=== PATIENT | male | born 1990 | race Caucasian/White ===

== ENCOUNTER 2019-11-29 06:12 | Emergency (ER) | payer MEDICAID, SELFPAY ==
--- NOTE | 2019-11-29 06:14 | ED_ITS ---
Entered by Ernestine Haney, acting as scribe for Yamil Sharif MD HPI - Abdominal Pain General: Chief Complaint: Abdominal Pain Stated Complaint: abd pain and back pain Time Seen by Provider: 11/29/19 06:15 Source: patient Mode of arrival: ambulatory Limitations: no limitations History of Present Illness: HPI narrative: 29 yo m came to the er for abd pain and back pain. Onset was 2 days ago. Pt states that he is describing as sharp and stabbing pain. Pt states that he has had some nausea and vomiting as well. Pt states that he has not eaten in a couple of days because of the bloating. Pt states that he has stomach ulcers. MD elicited complaint: abdominal pain and other (back pain) Pain Consistency: constant Location: RLQ and LLQ Severity: mild Quality: stabbing and sharp Radiation: back Exacerbating factors: nothing Relieving factors: nothing Associated Symptoms: Reports bloating, nausea and vomiting; Denies chills, dysuria and fever(s) Related Data: Patient : No Review of Systems General: Reports: other (negative unless marked) Const: Denies: fever, chills, body aches or change in appetite Eyes: Denies: blurry vision or eye discomfort ENMT: Denies: throat pain or dental pain Card: Denies: chest pain Resp: Denies: shortness of breath GI: Reports: abdominal pain, nausea, vomiting and bloating : Denies: painful urination Musc: Denies: neck pain or back pain Skin/Breast: Denies: rash Neuro: Denies: headache Psych: Denies: depression Kris/Lymph: Denies: easy bruising All/Imm: Denies: hives PFSH ED PFSH: Social History Smoking and tobacco status: never smoked Physical Exam Const: COMMON NORMALS: no apparent distress, oriented x3 and healthy appearing HENMT: COMMON NORMALS: normocephalic and head/scalp atraumatic HEAD & SCALP: normocephalic and atraumatic Eye: COMMON NORMALS: PERRL and EOMs intact bilaterally PUPIL: Yes PERRL Neck/C-Spine: COMMON NORMALS: full ROM and supple Chest: COMMONS NORMALS: inspection of chest normal and palpation of chest normal Resp: COMMON NORMALS: normal respiratory effort, no retractions, no use of accessory muscles and clear to auscultation bilaterally AUSCULTATION: clear to auscultation bilaterally Cardio: COMMON NORMALS: regular rate, regular rhythm and no murmurs RATE: regular rate RHYTHM: regular rhythm GI: COMMON NORMALS: normal to inspection, nondistended, normoactive bowel s ounds, soft to palpation, non-tender and no masses PALPATION: Yes soft Extremity: COMMON NORMALS: normal to inspection and full ROM Neuro: COMMON NORMALS: oriented x3, moves all extremities and no focal motor deficits Psych: COMMON NORMALS: mental status grossly normal, thought process normal and cooperative THOUGHT PROCESS: normal thought process Skin: COMMON NORMALS: no rashes or lesions noted and no wounds GENERAL SKIN EXAM: no rashes or lesions noted Course Vital Signs: Vital signs: Vital Signs Temperature 98.1 F 11/29/19 06:16 Pulse Rate 77 11/29/19 08:14 Respiratory Rate 16 11/29/19 08:14 Blood Pressure 134/79 11/29/19 08:14 Pulse Oximetry 96 11/29/19 08:14 MDM - Abdominal Pain MDM Narrative: Medical decision making narrative: Patient presents with abdominal pain and CT and labs shows mild pancreatitis. Patient is well- appearing otherwise. His exam here is benign he is tolerated p.o. We will place him on pain meds. Patient is stable for discharge and return if worsening. Differential Diagnosis: Differential diagnosis abdominal pain: Likely abdominal pain, acute appendicitis, constipation, diverticulitis, pancreatitis and small bowel obstruction Lab Data: Labs: Lab Results 11/29/19 11/29/19 11/29/19 Range/Units 06:25 06:25 07:15 WBC 11.4 H (4.0-10.0) 10^3/ uL RBC 5.66 H (4.1-5.3) 10^6/u L Hgb 17.8 H (11.7-16.6) g/dL Hct 50.3 (42.0-52.0) % MCV 88.9 (80-94) fL MCH 31.4 (28.0-34.0) pg MCHC 35.4 (30.0-36.0) g/dL RDW 12.2 (12.1-15.1) % Plt Count 307 (130-400) 10^3/c mm MPV 10.5 H (7.4-10.4) fL Neut % (Auto) 70.2 % Lymph % (Auto) 20.4 % Lamb % (Auto) 7.2 % Eos % (Auto) 1.4 % Baso % (Auto) 0.5 % Neut # (Auto) 8.0 H (1.8-7.7) 10^3/u L Lymph # (Auto) 2.3 (0.8-4.8) 10^3/u L Lamb # (Auto) 0.8 (0.2-0.9) 10^3/u L Eos # (Auto) 0.2 (0.0-0.8) 10^3/u L Baso # (Auto) 0.1 (0.0-0.1) 10^3/u L Nucleated RBC % (a uto) 0 % Nucleated RBCs # 0.0 /100WBC Sodium 132 L (136-145) mmol/L Potassium 3.5 (3.5-5.1) mmol/L Chloride 90 L (98-107) mmol/L Carbon Dioxide 22 (22-29) mmol/L Anion Gap 23.5 H (5-19) BUN 11 (6-20) mg/dL Creatinine 1.2 (0.7-1.2) mg/dL GFR Calculation 71.6 L (90-130) mL/min Glucose 120 H (65-115) mg/dL Calcium 10.7 H (8.5-10.5) mg/dL Total Bilirubin 1.7 H (0.15-1.2) mg/dL AST 66 H (0-40) U/L ALT 89 H (0-41) U/L Alkaline Phosphata se 102 (40-130) IU/L Total Protein 8.8 H (6.6-8.7) g/dL Albumin 4.5 (3.5-5.2) g/dL Globulin 4.3 (1.3-4.6) g/dL Lipase 160 H (13-60) U/L Urine Color Yellow (Yellow) Urine Appearance Clear (CLEAR) Urine pH 7 (5-7) Ur Specific Gravit y 1.000 L (1.005-1.030) Urine Protein Neg (Negative) Urine Glucose (UA) Norm (Normal) Urine Ketones 1+ H (Negative) Urine Blood Neg (Negative) Urine Nitrate Negative (Negative) Urine Bilirubin Neg (NEGATIVE) Urine Urobilinogen Norm (Negative) mg/dL Ur Leukocyte Jeniffer ase Negative (Negative) Imaging Data ^: CT Abd/Pel: Radiologist's impression: Ordering Provider/Ordering MD: Yamil Sharif MD Date of Service: 11/29/19 Procedure(s): CT abdomen pelvis w con* [id number] Accession Number(s): [id number] Report Number: [id number] PROCEDURE INFORMATION: Exam: CT Abdomen And Pelvis With Contrast Exam date and time: 11/29/2019 6:37 AM Age: 29 years old Clinical indication: Abdominal pain; Patient HX: Periumbilical and low back pain. History of gastric ulcers. ; Additional info: Abd pain TECHNIQUE: Imaging protocol: Computed tomography of the abdomen and pelvis with intravenous contrast. Total DLP: 1589.25 mGy-cm Radiation optimization: All CT scans at this facility use at least one of these dose optimization techniques: automated exposure control; mA and/or kV adjustment per patient size (includes targeted exams where dose is matched to clinical indication); or iterative reconstruction. Contrast material: OMNI 300; Contrast volume: 95 ml; Contrast route: 20G; COMPARISON: CT Abdomen/Pelvis Renal [id number] 03/25/2019 3:53 PM FINDINGS: Liver: Fatty liver. Gallbladder and bile ducts: No calcified stones. No ductal dilation. Pancreas: Mild stranding/fluid about the pancreatic head. No pancreatic ductal dilation. Spleen: No splenomegaly. Adrenals: No mass. Kidneys and ureters: No hydronephrosis. Stomach and bowel: No obstruction. No mucosal thickening. Appendix: No evidence of appendicitis. Intraperitoneal space: No free air. No significant fluid collection. Vasculature: No abdominal aortic aneurysm. Lymph nodes: No enlarged lymph nodes. Bladder: Unremarkable as visualized. Reproductive: Unremarkable as visualized. Bones/joints: Unremarkable. No acute fracture. Soft tissues: Unremarkable. CT/CT abdomen pelvis w con* [id number] IMPRESSION: Mild stranding/fluid about the pancreatic head. Correlate with pancreatic enzymes to exclude pancreatitis. Discharge Plan Discharge Patient Disposition: Home, Self-Care Clinical Impression: Pancreatitis Qualifiers: Chronicity: acute Pancreatitis type: unspecified pancreatitis type Acute pancreatitis complication: unspecified Qualified Code(s): K85.90 - Acute pancreatitis without necrosis or infection, unspecified Condition: Stable Prescriptions: [place] 5-325 mg tablet 1 tab PO Q6H PRN (Reason: pain) Qty: 14 RF: 0 Zofran 4 mg tablet 4 mg PO QID PRN (Reason: nausea and vomiting) Qty: 14 RF: 0 Protonix 40 mg tablet,delayed release (DR/EC) 40 mg PO DAILY 42 Days RF: 0 No Action metoprolol tartrate 100 mg Tablet 100 mg PO BID RF: 0 lisinopril-hydrochlorothiazide 20-25 mg Tablet 1 tab PO BID RF: 0 Tums 2 tab PO TID PRN (Reason: unknown) RF: 0 magnesium 1 tab PO EVERY OTHER DAY RF: 0 Discharge Orders: Discharge Order (Routine); Ordered 11/29/19 Ordered By: Yamil Sharif Referrals: Chloé Mars MD [Family Provider] - 4-7 days Discharge Diet: Advance as tolerated Discharge Activity: Resume usual activity Patient Instructions: Pancreatitis (ED) Discharge Date/Time: 11/29/19 08:21 Coding Level of Care Code ED Procurement Clerk for Chg Fwd The documentation recorded by the Lyndon david Stephanie Lyn, accurately reflects the service I personally performed and the decisions made by Chante pizarro Korby, MD Nov 29, 2019 06:12
[2019-11-29 06:16] VITALS: BP 172/114; PULSE 100; RESP 16; TEMP 36.7; O2SAT 98; BMI 32.5
--- NOTE | 2019-11-29 06:26 | CTR_ITS ---
PROCEDURE INFORMATION: Exam: CT Abdomen And Pelvis With Contrast Exam date and time: 11/29/2019 6:37 AM Age: 29 years old Clinical indication: Abdominal pain; Patient HX: Periumbilical and low back pain. History of gastric ulcers. ; Additional info: Abd pain TECHNIQUE: Imaging protocol: Computed tomography of the abdomen and pelvis with intravenous contrast. Total DLP: 1589.25 mGy-cm Radiation optimization: All CT scans at this facility use at least one of these dose optimization techniques: automated exposure control; mA and/or kV adjustment per patient size (includes targeted exams where dose is matched to clinical indication); or iterative reconstruction. Contrast material: OMNI 300; Contrast volume: 95 ml; Contrast route: 20G; COMPARISON: CT Abdomen/Pelvis Renal [id number] 03/25/2019 3:53 PM FINDINGS: Liver: Fatty liver. Gallbladder and bile ducts: No calcified stones. No ductal dilation. Pancreas: Mild stranding/fluid about the pancreatic head. No pancreatic ductal dilation. Spleen: No splenomegaly. Adrenals: No mass. Kidneys and ureters: No hydronephrosis. Stomach and bowel: No obstruction. No mucosal thickening. Appendix: No evidence of appendicitis. Intraperitoneal space: No free air. No significant fluid collection. Vasculature: No abdominal aortic aneurysm. Lymph nodes: No enlarged lymph nodes. Bladder: Unremarkable as visualized. Reproductive: Unremarkable as visualized. Bones/joints: Unremarkable. No acute fracture. Soft tissues: Unremarkable. CT/CT abdomen pelvis w con* [id number] IMPRESSION: Mild stranding/fluid about the pancreatic head. Correlate with pancreatic enzymes to exclude pancreatitis. Radiation Dose CTDIVOL = (mGy): DLP = 1589.25 (mGy-cm)
[2019-11-29] MEDS: sodium chloride 0.9% 1,000 ML 999 ML IV (06:31)
[2019-11-29 06:33] VITALS: RESP 18
[2019-11-29] MEDS: ondansetron 2 mg/ML SDV 2 mL 4 MG IVP (06:33)
[2019-11-29] MEDS: morphine 4 mg/mL SDV 1 mL IVP (06:33)
[2019-11-29 06:42] LABS: Basophils # 0.1 10^3/uL (0.0-0.1); Basophils % 0.5 %; Eosinophils # 0.2 10^3/uL (0.0-0.8); Eosinophils % 1.4 %; Hematocrit 50.3 % (42.0-52.0); Hemoglobin 17.8 g/dL (11.7-16.6); Lymphocytes # 2.3 10^3/uL (0.8-4.8); Lymphocytes % 20.4 %; Mean Corpuscular HGB Conc 35.4 g/dL (30.0-36.0); Mean Corpuscular Hemoglobin 31.4 pg (28.0-34.0); Mean Corpuscular Volume 88.9 fL (80-94); Mean Platelet Volume 10.5 fL (7.4-10.4); Monocytes # 0.8 10^3/uL (0.2-0.9); Monocytes % 7.2 %; Neutrophils % 70.2 %; Nucleated Red Blood Cells % 0 %; Platelet Count 307 10^3/cmm (130-400); Red Blood Count 5.66 10^6/uL (4.1-5.3); Red Cell Distribution Width 12.2 % (12.1-15.1); White Blood Count 11.4 10^3/uL (4.0-10.0)
[2019-11-29 06:57] LABS: Alanine Aminotransferase 89 U/L (0-41); Albumin Level 4.5 g/dL (3.5-5.2); Alkaline Phosphatase 102 IU/L (40-130); Anion Gap 23.5 (5-19); Aspartate Amino Transferase 66 U/L (0-40); Blood Urea Nitrogen 11 mg/dL (6-20); Calcium 10.7 mg/dL (8.5-10.5); Carbon Dioxide 22 mmol/L (22-29); Chloride 90 mmol/L (98-107); Globulin 4.3 g/dL (1.3-4.6); Glomerular Filtration Rate 71.6 mL/min (90-130); Glucose 120 mg/dL (65-115); Lipase 160 U/L (13-60); Potassium 3.5 mmol/L (3.5-5.1); Sodium 132 mmol/L (136-145); Total Bilirubin 1.7 mg/dL (0.15-1.2); Total Protein 8.8 g/dL (6.6-8.7)
[2019-11-29] MEDS: iohexol 300 mg/mL 100 mL Btl IV (06:58)
[2019-11-29 07:28] LABS: Add Urine Microscopic? NO
[2019-11-29 07:36] LABS: Urine Appearance Clear (CLEAR); Urine Color Yellow (Yellow); pH Urine 7 (5-7)
[2019-11-29 07:37] LABS: Bilirubin Urine Neg (NEGATIVE); Blood Urine Neg (Negative); Glucose Urine UA Norm (Normal); Ketones Urine 1+ (Negative); Leukocyte Esterase Urine Negative (Negative); Nitrate Urine Negative (Negative); Protein Urine Neg (Negative); Urobilinogen Urine Norm (Negative)
[2019-11-29 08:14] VITALS: BP 134/79; PULSE 77; RESP 16; O2SAT 96
== END 2019-11-29 08:21 | disposition home or self-care (01) ==
PROVIDERS: Emergency Provider Emergency Medicine; Family Provider Family Medicine
DX: K85.90 Acute pancreatitis without necrosis or infection, unspecified (principal)
CPT/HCPCS: 74177; 80053; 81003; 83690; 85025; 96361; 96374; 96375; 99282; 99283; A9270; J2270; J2405; J7030; Q9967

== ENCOUNTER 2020-09-16 15:31 | Emergency (ER) | payer MEDICAID, SELFPAY ==
[2020-09-16 16:27] VITALS: BP 157/97; PULSE 78; RESP 16; TEMP 36.3; O2SAT 98; BMI 35.2
--- NOTE | 2020-09-16 16:55 | CTR_ITS ---
PROCEDURE INFORMATION: Exam: CT Abdomen And Pelvis With Contrast Exam date and time: 09/16/2020 6:00 PM Age: 30 years old Clinical indication: Nausea and vomiting and other: Diarrhea; Abdominal pain; Localized; Right upper quadrant (ruq) TECHNIQUE: Imaging protocol: Computed tomography of the abdomen and pelvis with intravenous contrast. Radiation optimization: All CT scans at this facility use at least one of these dose optimization techniques: automated exposure control; mA and/or kV adjustment per patient size (includes targeted exams where dose is matched to clinical indication); or iterative reconstruction. Contrast material: OMNI 300; Contrast volume: 95 ml; Contrast route: INTRAVENOUS (IV); COMPARISON: CT abdomen pelvis w con* [id number] 11/29/2019 7:10 AM RADIATION DOSE METRICS: Total DLP (mGy-cm): 1638.91 FINDINGS: Liver: There is a diffuse decrease in hepatic parenchymal density, consistent with severe fatty infiltration. There is a 2.2 cm sized relatively hyperdense lesion in the inferior tip of the right lobe of the liver which show some peripheral enhancement and most likely represents benign hemangioma. This was probably present on 11/29/2019 and 03/25/2019 and is no larger. Further evaluation such as with liver MRI could confirm the benign nature of this finding. Gallbladder and bile ducts: The gallbladder is normal. Pancreas: The pancreas is normal. Spleen: The spleen is normal. Adrenal glands: The adrenal glands are normal. Kidneys and ureters: The kidneys are normal. There is no evidence of hydronephrosis. There is no evidence of renal or ureteral calcifications. Stomach and bowel: There is no evidence of colitis/diverticulitis. There is no evidence of intestinal obstruction. Appendix: Not identified Intraperitoneal space: There is no evidence of free intraperitoneal fluid. Vasculature: Unremarkable. No abdominal aortic aneurysm. Lymph nodes: Unremarkable. No enlarged lymph nodes. Urinary bladder: Unremarkable as visualized. Reproductive: Unremarkable as visualized. Bones/joints: Unremarkable. No acute fracture. Soft tissues: Unremarkable. CT/CT abdomen pelvis w con* [id number] IMPRESSION: 1. Severe fatty liver. 2. Probable hepatic hemangioma. 3. No acute finding. Radiation Dose CTDIVOL = (mGy): DLP = 1638.91 (mGy-cm)
[2020-09-16] MEDS: ondansetron 2 mg/ML SDV 2 mL 4 MG IVP (16:58)
[2020-09-16 17:00] LABS: Basophils # 0.1 10^3/uL (0.0-0.1); Basophils % 0.7 %; Eosinophils % 0.3 %; Lymphocytes # 1.6 10^3/uL (0.8-4.8); Lymphocytes % 16.1 %; Mean Corpuscular Hemoglobin 31.7 pg (28.0-34.0); Mean Corpuscular Volume 93.3 fL (80-94); Mean Platelet Volume 10.1 fL (7.4-10.4); Monocytes # 0.8 10^3/uL (0.2-0.9); Monocytes % 7.6 %; Neutrophils # 7.41 10^3/uL (1.8-7.7); Nucleated Red Blood Cells % 0 %; Platelet Count 257 10^3/cmm (130-400); Red Blood Count 5.04 10^6/uL (4.1-5.3); Red Cell Distribution Width 12.5 % (12.1-15.1); White Blood Count 9.9 10^3/uL (4.0-10.0)
--- NOTE | 2020-09-16 17:11 | W.ED.ABDPA2 ---
HPI - Abdominal Pain General: Chief Complaint: Abdominal Pain Stated Complaint: abd pain-hx of chronic pancreatitis Time Seen by Provider: 09/16/20 16:34 Source: patient Mode of arrival: ambulatory Limitations: no limitations History of Present Illness: HPI narrative: 30-year-old male patient presents to the emergency department with history of pancreatitis, experienced November 2019. He reports his continue to experience similar abdominal pain on and off since diagnosis. He reports several day history of worsening right upper quadrant pain, diarrhea symptoms and vomiting with solid food intake. He denies hematemesis or hematochezia recently but does state previous episode in May 2020. He did not seek medical treatment for that episode. He reports drinking average of 2 bottles wine daily. Is aware this will increase risk of recurrent pancreatitis. He states no history of diabetes but states concerned he could be due to change of body odor. He reports 3 episodes of diarrhea today. Primary care provider Dr. Barr. TREVIZO elicited complaint: abdominal pain Pertinent past history: other (Pancreatitis) Pain Consistency: intermittent Location: RUQ Severity: moderate Quality: cramping, aching and dull Radiation: RUQ Migration to: no migration Exacerbating factors: other (Intake of solid food) Relieving factors: other (Intake of water) Associated Symptoms: Reports bloating, change in bowel habits, diarrhea, nausea and vomiting; Denies chills, dysuria, fever(s), fecal incontinence and melena Treatments prior to arrival: other (Reports Zofran completed and does not have prescription at home.) Review of Systems General: Reports: 10 or more systems reviewed and unremarkable except in HPI and below Const: Denies: fever(s), chills or diaphoresis Eyes: Denies: blurry vision or eye redness ENMT: Denies: throat pain, dental pain or disequilibrium Card: Denies: chest pain, palpitations or irregular heart rhythm Resp: Denies: dyspnea, productive cough, non-productive cough, wheezing or chest congestion GI: Reports: abdominal pain, nausea, vomiting, diarrhea, bloating and change in bowel habits; Denies: fecal incontinence, melena or white/light colored stool : Denies: difficulty urinating, dysuria, urinary urgency or urinary incontinence Musc: Denies: neck pain, back pain, joint swelling, muscle cramps or muscle weakness Skin/Breast: Denies: rash or pruritus Neuro: Denies: headache(s), weakness in extremities or behavioral changes Psych: Reports: anxiety and other (Reports stress due to COVID-19); Denies: depression or mood swings Kris/Lymph: Denies: easy bruising PFSH ED PFSH: Social History (Updated 09/16/20 @ 16:31 by Chapito Flood RN) Smoking and tobacco status: never smoked Alcohol intake: current Alcohol intake frequency: 0-2 Drinks per Day Substance/Drug Use: never Physical Exam Const: COMMON NORMALS: no acute distress, patient oriented x3, healthy appearing, alert and well nourished EXAM LIMITATIONS: no altered mental status GENERAL APPEARANCE: cooperative, well hydrated and other (appears not feeling) NUTRITIONAL APPEARANCE: obese ORIENTATION/CONSCIOUSNESS: Yes awake, Yes oriented to person, Yes oriented to place and Yes oriented to time HENMT: COMMON NORMALS: normocephalic, atraumatic, Normal external nose present and moist oral mucous membranes HEAD & SCALP: normal to inspection, normocephalic and atraumatic FACE & SINUS: normal facial exam and face symmetric NOSE: Normal external nose present THROAT: posterior oropharynx normal Eye: COMMON NORMALS: Equal, round and reactive pupils present and EOMs intact bilaterally GENERAL EYE: appearance normal, both eyes and all related structures PUPIL: Yes Equal, round and reactive pupils present Neck/C-Spine: COMMON NORMALS: full ROM and no lymphadenopathy GENERAL: Yes normal visual inspection and Yes trachea midline CERVICAL SPINE: Yes cervical ROM normal Lymph: LYMPHATIC: no lymphadenopathy noted Chest: COMMONS NORMALS: normal inspection of the chest and normal palpation of entire chest wall Resp: COMMON NORMALS: normal respiratory effort, No retractions, No use of accessory muscles and clear to auscultation bilaterally EFFORT & INSPECTION: Yes able to speak in complete sentences and No paradoxical thoraco-abdominal movements AUSCULTATION: clear to auscultation bilaterally, no rhonchi and no wheezes Cardio: COMMON NORMALS: regular rate, regular rhythm, S1 normal heart sound present, S2 normal heart sound present and Peripheral pulses 2+ throughout RATE: regular rate RHYTHM: regular rhythm HEART SOUNDS: S1 normal heart sound present and S2 normal heart sound present PERIPHERAL PULSES: Peripheral pulses 2+ throughout GI: COMMON NORMALS: Normal to inspection, nondistended, normoactive bowel sounds present and Soft to palpation INSPECTION: Yes normal to inspection, No abdominal wall ecchymosis and No scar PALPATION: Yes Soft to palpation : COMMON NORMALS: Yes no CVA tenderness BLADDER/KIDNEY EXAM: Yes no CVA tenderness Back/Pelvis: COMMON NORMALS: no CVA tenderness and thoracic and lumbar spine normal to inspection Extremity: COMMON NORMALS: normal to inspection and capillary refill normal Neuro: COMMON NORMALS: patient oriented x3 and no focal motor deficits SENSORIUM/ORIENTATION: Yes alert, Yes oriented to person, Yes oriented to place and Yes oriented to time Psych: COMMON NORMALS: mental status grossly normal, Normal thought process present and cooperative ACTIVITY/MOTOR BEHAVIOR: Yes appropriate eye contact THOUGHT PROCESS: Normal thought process present Skin: COMMON NORMALS: no rashes or lesions noted and turgor normal GENERAL SKIN EXAM: no rashes or lesions noted and turgor normal Course ED course: 30-year-old male patient presents to the emergency department with abdominal pain. CT scan of the abdomen pelvis without acute findings, severe fatty infiltrated liver present, elevation of liver enzymes present, hepatitis panel negative. He reports increase of alcohol intake due to stress of COVID-19. He did exhibit anxiety here in the ED, lorazepam administered. He was able to tolerate p.o. fluids without vomiting, prescription of Zofran and Carafate provided. He was advised to follow-up with his primary care physician as further evaluation by gastroenterology or hepatology specialty may be needed. He was counseled on lifestyle changes such as diet and exercise, weight loss and avoidance of EtOH/Tylenol. Verbalized understanding. Vital Signs: Vital signs: Vital Signs Temperature 97.3 F L 09/16/20 16:27 Pulse Rate 89 09/16/20 19:27 Respiratory Rate 18 09/16/20 19:27 Blood Pressure 145/79 09/16/20 19:27 Pulse Oximetry 98 09/16/20 19:27 MDM - Abdominal Pain Differential Diagnosis: Differential diagnosis abdominal pain: Likely abdominal pain, acute appendicitis, calculus of kidney and gastroenteritis Lab Data: Labs: Lab Results 09/16/20 09/16/20 09/16/20 Range/Units 16:42 16:42 16:42 WBC 9.9 (4.0-10.0) 10^3/ uL RBC 5.04 (4.1-5.3) 10^6/u L Hgb 16.0 (11.7-16.6) g/dL Hct 47.0 (42.0-52.0) % MCV 93.3 (80-94) fL MCH 31.7 (28.0-34.0) pg MCHC 34.0 (30.0-36.0) g/dL RDW 12.5 (12.1-15.1) % Plt Count 257 (130-400) 10^3/c mm MPV 10.1 (7.4-10.4) fL Neut % (Auto) 75.0 % Lymph % (Auto) 16.1 % [place] % (Auto) 7.6 % Eos % (Auto) 0.3 % Baso % (Auto) 0.7 % Neut # (Auto) 7.41 (1.8-7.7) 10^3/u L Lymph # (Auto) 1.6 (0.8-4.8) 10^3/u L [place] # (Auto) 0.8 (0.2-0.9) 10^3/u L Eos # (Auto) 0.0 (0.0-0.8) 10^3/u L Baso # (Auto) 0.1 (0.0-0.1) 10^3/u L Nucleated RBC % (a uto) 0 % Nucleated RBCs # 0.0 /100WBC Sodium 136 (136-145) mmol/L Potassium 4.2 (3.5-5.1) mmol/L Chloride 97 L (98-107) mmol/L Carbon Dioxide 26 (22-29) mmol/L Anion Gap 17.2 (5-19) BUN 7 (6-20) mg/dL Creatinine 0.9 (0.7-1.2) mg/dL GFR Calculation 99.1 (90-130) mL/min Glucose 111 (65-115) mg/dL Calculated Osmolal ity 281 L (285-295) mOsm/k g Calcium 10.0 (8.5-10.5) mg/dL Total Bilirubin 0.6 (0.15-1.2) mg/dL AST 121 H (0-40) U/L ALT 221 H (0-41) U/L Alkaline Phosphata se 106 (40-130) IU/L Total Protein 7.5 (6.6-8.7) g/dL Albumin 4.4 (3.5-5.2) g/dL Globulin 3.1 (1.3-4.6) g/dL Lipase 30 (13-60) U/L Urine Color (Yellow) Urine Appearance (CLEAR) Urine pH (5-7) Ur Specific Gravit y (1.005-1.030) Urine Protein (Negative) Urine Glucose (UA) (Normal) Urine Ketones (Negative) Urine Blood (Negative) Urine Nitrate (Negative) Urine Bilirubin (Negative) Urine Urobilinogen (Negative) mg/dL Ur Leukocyte Jeniffer ase (Negative) Hepatitis A IgM Ab Non-reactive (Nonreactive) Hep Bs Antigen Non-reactive (Nonreactive) Hep Bs Antibody 3.5 (0-8.5) Hep B Core Total A b Non-reactive (Nonreactive) Hepatitis C Antibo dy Non-reactive (Nonreactive) 09/16/20 Range/Units 17:00 WBC (4.0-10.0) 10^3/ uL RBC (4.1-5.3) 10^6/u L Hgb (11.7-16.6) g/dL Hct (42.0-52.0) % MCV (80-94) fL MCH (28.0-34.0) pg MCHC (30.0-36.0) g/dL RDW (12.1-15.1) % Plt Count (130-400) 10^3/c mm MPV (7.4-10.4) fL Neut % (Auto) % Lymph % (Auto) % [place] % (Auto) % Eos % (Auto) % Baso % (Auto) % Neut # (Auto) (1.8-7.7) 10^3/u L Lymph # (Auto) (0.8-4.8) 10^3/u L [place] # (Auto) (0.2-0.9) 10^3/u L Eos # (Auto) (0.0-0.8) 10^3/u L Baso # (Auto) (0.0-0.1) 10^3/u L Nucleated RBC % (a uto) % Nucleated RBCs # /100WBC Sodium (136-145) mmol/L Potassium (3.5-5.1) mmol/L Chloride (98-107) mmol/L Carbon Dioxide (22-29) mmol/L Anion Gap (5-19) BUN (6-20) mg/dL Creatinine (0.7-1.2) mg/dL GFR Calculation (90-130) mL/min Glucose (65-115) mg/dL Calculated Osmolal ity (285-295) mOsm/k g Calcium (8.5-10.5) mg/dL Total Bilirubin (0.15-1.2) mg/dL AST (0-40) U/L ALT (0-41) U/L Alkaline Phosphata se (40-130) IU/L Total Protein (6.6-8.7) g/dL Albumin (3.5-5.2) g/dL Globulin (1.3-4.6) g/dL Lipase (13-60) U/L Urine Color Straw (Yellow) Urine Appearance Clear (CLEAR) Urine pH 7 (5-7) Ur Specific Gravit y 1.000 L (1.005-1.030) Urine Protein Neg (Negative) Urine Glucose (UA) Norm (Normal) Urine Ketones Negative (Negative) Urine Blood Neg (Negative) Urine Nitrate Negative (Negative) Urine Bilirubin Neg (Negative) Urine Urobilinogen Norm (Negative) mg/dL Ur Leukocyte Jeniffer ase Negative (Negative) Hepatitis A IgM Ab (Nonreactive) Hep Bs Antigen (Nonreactive) Hep Bs Antibody (0-8.5) Hep B Core Total A b (Nonreactive) Hepatitis C Antibo dy (Nonreactive) Imaging Data ^: CT Abd/Pel: Radiologist's impression: [address] [address] [address] Scan Report Signed Patient: David Cowan #: [id number] : 1990Acct#:[id number] Age/Sex: 30 / MADM Date: 09/16/20 Loc: ERRoom/Bed: Attending Dr: Ordering Provider/Ordering MD: Brenda Alexander Date of Service: 09/16/20 Procedure(s): CT abdomen pelvis w con* [id number] Accession Number(s): [id number] Report Number: [id number] PROCEDURE INFORMATION: Exam: CT Abdomen And Pelvis With Contrast Exam date and time: 09/16/2020 6:00 PM Age: 30 years old Clinical indication: Nausea and vomiting and other: Diarrhea; Abdominal pain; Localized; Right upper quadrant (ruq) TECHNIQUE: Imaging protocol: Computed tomography of the abdomen and pelvis with intravenous contrast. Radiation optimization: All CT scans at this facility use at least one of these dose optimization techniques: automated exposure control; mA and/or kV adjustment per patient size (includes targeted exams where dose is matched to clinical indication); or iterative reconstruction. Contrast material: OMNI 300; Contrast volume: 95 ml; Contrast route: INTRAVENOUS (IV); COMPARISON: CT abdomen pelvis w con* [id number] 11/29/2019 7:10 AM RADIATION DOSE METRICS: Total DLP (mGy-cm): 1638.91 FINDINGS: Liver: There is a diffuse decrease in hepatic parenchymal density, consistent with severe fatty infiltration. There is a 2.2 cm sized relatively hyperdense lesion in the inferior tip of the right lobe of the liver which show some peripheral enhancement and most likely represents benign hemangioma. This was probably present on 11/29/2019 and 03/25/2019 and is no larger. Further evaluation such as with liver MRI could confirm the benign nature of this finding. Gallbladder and bile ducts: The gallbladder is normal. Pancreas: The pancreas is normal. Spleen: The spleen is normal. Adrenal glands: The adrenal glands are normal. Kidneys and ureters: The kidneys are normal. There is no evidence of hydronephrosis. There is no evidence of renal or ureteral calcifications. Stomach and bowel: There is no evidence of colitis/diverticulitis. There is no evidence of intestinal obstruction. Appendix: Not identified Intraperitoneal space: There is no evidence of free intraperitoneal fluid. Vasculature: Unremarkable. No abdominal aortic aneurysm. Lymph nodes: Unremarkable. No enlarged lymph nodes. Urinary bladder: Unremarkable as visualized. Reproductive: Unremarkable as visualized. Bones/joints: Unremarkable. No acute fracture. Soft tissues: Unremarkable. CT/CT abdomen pelvis w con* [id number] IMPRESSION: 1. Severe fatty liver. 2. Probable hepatic hemangioma. 3. No acute finding. Radiation Dose CTDIVOL = (mGy): DLP = 1638.91 (mGy-cm) Dictated By:Braeden Hutton Signed By:Sarah Hutton Date/Time:09/16/201817 DD/ 16 Discharge Plan Discharge Patient Disposition: Home Clinical Impression: Fatty infiltration of liver, Abnormal CT of the abdomen, Acute anxiety Gastritis Qualifiers: Gastritis type: alcoholic Chronicity: acute Gastritis bleeding: without bleeding Qualified Code(s): K29.20 - Alcoholic gastritis without bleeding Condition: Stable Prescriptions: New Zofran 4 mg tablet 4 mg PO Q4H Qty: 10 RF: 0 Carafate 1 gram tablet 1 g PO AC 7 Days Qty: 20 RF: 0 No Action metoprolol tartrate 100 mg Tablet 100 mg PO BID@0900,2100 RF: 0 lisinopril-hydrochlorothiazide 20-25 mg Tablet 1 tab PO BID@10,19 RF: 0 pantoprazole 40 mg tablet,delayed release (DR/EC) 40 mg PO DAILY@0900 RF: 0 Discharge Orders: Discharge ED (Routine); Ordered 09/16/20 Ordered By: Brenda Alexander Referrals: Chloé Mars MD [Family Provider] - Discharge Diet: Advance as tolerated and Clear Liquid Discharge Activity: Resume usual activity Patient Instructions: Gastritis (ED), Abuse of Alcohol (ED), Acute Nausea and Vomiting (ED), Anxiety (ED) Activity Restrictions/Additional Instructions: Follow-up with Dr. Mars next week without fail, further evaluation will be needed to ensure you are improving. Clear liquid diet for 24 hours then advance as tolerated, avoid fried fatty greasy foods Carafate has been provided, Carafate will provide protective coating of the oral mucosa to the stomach. Continue Protonix, pantoprazole as prescribed by primary care Avoid alcohol as this will increase symptoms Avoid use of Tylenol, may take ibuprofen as needed for pain Follow-up with Dr. Mars for anxiety management Sign Out Sign Out Data: Patient Sign Out occurred on 09/16/20 at 16:45. Patient's care was discussed, and care was transferred from to TONY Gentile. Coding Level of Care Code ED Shingle Inspector for Chg Fwd Exam Comprehensive
[2020-09-16 17:13] LABS: Add Urine Microscopic? NO
[2020-09-16 17:26] VITALS: RESP 18; O2SAT 99
[2020-09-16] MEDS: sodium chloride 0.9% 500 ML 999 ML IV (17:26)
[2020-09-16] MEDS: morphine 4 mg/mL SDV 1 mL IVP (17:26)
[2020-09-16 17:27] VITALS: BP 172/92; PULSE 90; RESP 18; O2SAT 100
[2020-09-16 17:28] LABS: Alanine Aminotransferase 221 U/L (0-41); Albumin Level 4.4 g/dL (3.5-5.2); Alkaline Phosphatase 106 IU/L (40-130); Anion Gap 17.2 (5-19); Aspartate Amino Transferase 121 U/L (0-40); Blood Urea Nitrogen 7 mg/dL (6-20); Carbon Dioxide 26 mmol/L (22-29); Chloride 97 mmol/L (98-107); Globulin 3.1 g/dL (1.3-4.6); Glomerular Filtration Rate 99.1 mL/min (90-130); Glucose 111 mg/dL (65-115); Lipase 30 U/L (13-60); Osmolality Calculated 281 mOsm/kg (285-295); Potassium 4.2 mmol/L (3.5-5.1); Sodium 136 mmol/L (136-145); Total Bilirubin 0.6 mg/dL (0.15-1.2); Total Protein 7.5 g/dL (6.6-8.7)
[2020-09-16 17:34] LABS: Bilirubin Urine Neg (Negative); Blood Urine Neg (Negative); Glucose Urine UA Norm (Normal); Ketones Urine Negative (Negative); Leukocyte Esterase Urine Negative (Negative); Nitrate Urine Negative (Negative); Protein Urine Neg (Negative); Urine Appearance Clear (CLEAR); Urine Color Straw (Yellow); Urobilinogen Urine Norm (Negative); pH Urine 7 (5-7)
[2020-09-16] MEDS: iohexol 300 mg/mL 100 mL Btl IV (18:02)
[2020-09-16 18:17] VITALS: BP 160/89; PULSE 82; RESP 20; O2SAT 95
[2020-09-16] MEDS: LORazepam 0.5 mg Tablet 0.25 MG PO (18:55)
[2020-09-16 18:56] VITALS: BP 147/94; PULSE 95; RESP 18; O2SAT 98
[2020-09-16 19:04] LABS: Hepatitis A Antibody IgM Non-Reactive (Nonreactive); Hepatitis B Core AB, Total Non-Reactive (Nonreactive); Hepatitis B Surface AB 3.5 (0-8.5); Hepatitis B Surface Antigen Non-Reactive (Nonreactive); Hepatitis C Virus Antibody Non-Reactive (Nonreactive)
[2020-09-16 19:27] VITALS: BP 145/79; PULSE 89; RESP 18; O2SAT 98
== END 2020-09-16 19:28 | disposition home or self-care (01) ==
PROVIDERS: Emergency Medicine; Emergency Provider Nurse Practitioner Family; Family Provider Family Medicine
DX: K29.20 Alcoholic gastritis without bleeding (principal); K76.0 Fatty (change of) liver, not elsewhere classified; R93.5 Abnormal findings on diagnostic imaging of other abdominal regions, including retroperitoneum; F41.9 Anxiety disorder, unspecified
CPT/HCPCS: 12345; 74177; 80053; 81003; 83690; 85025; 86705; 86706; 86709; 86803; 87340; 96374; 96375; 99283; J2270; J2405; J7040; Q9967

== ENCOUNTER 2020-10-02 15:52 | Emergency (ER) | payer MEDICAID, SELFPAY ==
[2020-10-02 16:11] VITALS: BP 118/79; PULSE 75; RESP 14; TEMP 36.8; O2SAT 99; BMI 36.2
--- NOTE | 2020-10-02 16:40 | XRR_ITS ---
PROCEDURE INFORMATION: Exam: XR Chest, 1 View Exam date and time: 10/02/2020 4:46 PM Age: 30 years old Clinical indication: Pain; Chest pressure; Additional info: Chest pain TECHNIQUE: Imaging protocol: XR of the chest Views: 1 view. Total images: 1 COMPARISON: CR Chest 1 [place] [id number] 03/20/2019 10:07 PM FINDINGS: Lungs: Unremarkable. No consolidation. Pleural space: Unremarkable. No pleural effusion. No pneumothorax. Heart/Mediastinum: Unremarkable. No cardiomegaly. Bones/joints: Mild scoliotic curvature. XR/XR chest 1V portable [id number] IMPRESSION: No acute findings.
--- NOTE | 2020-10-02 16:40 | ECG_ITS ---
[facility] Test Date: 2020-10-02 Pat Name: Buddy Cowan Department: Room: Gender: Male Disability Hearing Officer: fred : 1990 Requested By: Lauri Mark Order Number: [id number] Thomas MD: Jorje Eller M.D. Measurements Intervals [place] Rate: 76 P: 50 WA: 190 QRS: 51 QRSD: 86 T: 25 QT: 348 QTc: 392 Interpretive Statements SINUS RHYTHM WITH SINUS ARRHYTHMIA Compared to ECG 03/20/2019 21:46:52 No significant changes Electronically Signed On 10-03-2020 16:44:13 HANDKERCHIEF PRESSER by Jorje Eller M.D. [email or web address]
--- NOTE | 2020-10-02 16:48 | W.ED.CHESTPA ---
HPI - Chest Pain General: Chief Complaint: Chest Pain Stated Complaint: chest pain Time Seen by Provider: 10/02/20 16:22 History of Present Illness: HPI narrative: The patient is a 30-year-old male with past medical history anxiety who comes to the ER complaining of midsternal chest pain for the past hour at home he says he was not doing anything and then the started having pressure in the middle of his chest which got worse. He started taking BuSpar a couple weeks ago with no improvement in his anxiety. He has history of hypertension also. He denies previous cardiac history or any other medical problems. He has an allergy to NSAIDs and says aspirin upsets his stomach and makes him vomit blood sometimes so he refuses to take this medicine in the ER. MD complaint: chest pain and chest discomfort Timing of current episode: constant Prior episodes: No Onset: during rest Pain location: substernal Pain radiation: none Quality: sharp Associated symptoms: Deny abdominal pain, dyspnea or palpitations Treatment prior to arrival: none Review of Systems General: Reports: 10 or more systems reviewed and unremarkable except in HPI and below Const: Denies: fatigue Eyes: Denies: change in vision, blurry vision or eye redness ENMT: Denies: throat pain, swelling of lips/tongue, ear or mastoid pain or nasal congestion Card: Reports: chest pain; Denies: palpitations, irregular heart rhythm, edema, dyspnea on exertion or orthopnea Resp: Denies: dyspnea, productive cough or non-productive cough GI: Denies: abdominal pain, diarrhea or GI cramping : Denies: flank pain, urinary frequency or urinary urgency Musc: Denies: neck pain, back pain, extremity pain, joint pain, joint redness, limited range of motion or muscle weakness Skin/Breast: Denies: rash, pruritus, erythema, skin pain or skin tenderness Neuro: Denies: headache(s), numbness in extremities, weakness in extremities, sensory changes, difficulty walking, dizziness, confusion or Slurred speech present Psych: Reports: anxiety; Denies: depression Endo: Denies: polyuria All/Imm: Denies: urticaria, throat swelling or tongue swelling PFSH ED PFSH: Social History (Updated 09/16/20 @ 16:31 by Chapito Flood RN) Smoking and tobacco status: never smoked Alcohol intake: current Alcohol intake frequency: 0-2 Drinks per Day Current gender identity: Male Physical Exam Narrative: EXAM NARRATIVE: Exam is normal except he has tenderness to his anterior chest wall reproducing his chest pain complaint. Also has mild tenderness in the epigastric region Const: COMMON NORMALS: no acute distress, average body habitus, patient oriented x3, no limitations, healthy appearing, alert and well nourished GENERAL APPEARANCE: cooperative, comfortable, well kempt and well developed ORIENTATION/CONSCIOUSNESS: Yes awake, Yes oriented to person, Yes oriented to place and Yes oriented to time HENMT: COMMON NORMALS: normocephalic, external ears normal and Normal external nose present HEAD & SCALP: normal to inspection and normocephalic NOSE: Normal external nose present EXTERNAL EAR: Yes external ears normal MOUTH: Normal oral and palatal mucosa present THROAT: posterior oropharynx normal Eye: COMMON NORMALS: Equal, round and reactive pupils present and EOMs intact bilaterally GENERAL EYE: appearance normal, both eyes and all related structures PUPIL: Yes Equal, round and reactive pupils present Neck/C-Spine: COMMON NORMALS: full ROM, no lymphadenopathy, no meningeal signs and no JVD GENERAL: Yes normal visual inspection Lymph: LYMPHATIC: no lymphadenopathy noted Chest: COMMONS NORMALS: normal inspection of the chest and normal palpation of entire chest wall Resp: COMMON NORMALS: normal respiratory effort, No retractions, No use of accessory muscles, clear to auscultation bilaterally and percussion normal EFFORT & INSPECTION: Yes able to speak in complete sentences AUSCULTATION: clear to auscultation bilaterally PERCUSSION: percussion normal Cardio: COMMON NORMALS: no JVD, regular rate, regular rhythm, S1 normal heart sound present, S2 normal heart sound present and Peripheral pulses 2+ throughout RATE: regular rate RHYTHM: regular rhythm HEART SOUNDS: S1 normal heart sound present and S2 normal heart sound present PERIPHERAL PULSES: Peripheral pulses 2+ throughout OTHER: Anterior chest wall tenderness GI: COMMON NORMALS: Normal to inspection, nondistended, normoactive bowel sounds present, Soft to palpation, non-tender (Mild epigastric discomfort with deep palpation.) and no masses INSPECTION: Yes normal to inspection PALPATION: Yes Soft to palpation : COMMON NORMALS: Yes no CVA tenderness BLADDER/KIDNEY EXAM: Yes no CVA tenderness Back/Pelvis: COMMON NORMALS: no CVA tenderness, thoracic and lumbar spine normal to inspection, no thoracic nor lumbar tenderness and thoraco-lumbar ROM normal Extremity: COMMON NORMALS: normal to inspection, full ROM, capillary refill normal, no joint enlargement and no pedal edema GENERAL: Yes normal exam except as noted Neuro: COMMON NORMALS: patient oriented x3, CN's II-XII intact bilaterally, moves all extremities, no focal motor deficits, no sensory deficits noted and gait normal SENSORIUM/ORIENTATION: Yes alert, Yes oriented to person, Yes oriented to place and Yes oriented to time MENINGEAL SIGNS: Yes no meningeal signs Psych: COMMON NORMALS: mental status grossly normal, Normal thought process present, cooperative, normal affect and speech normal APPEARANCE: Yes well kempt ATTITUDE: Yes calm SPEECH: Yes normal speech THOUGHT PROCESS: Normal thought process present Skin: COMMON NORMALS: no rashes or lesions noted GENERAL SKIN EXAM: no rashes or lesions noted Course Vital Signs: Vital signs: Vital Signs Temperature 98.3 F 10/02/20 16:11 Pulse Rate 75 10/02/20 16:11 Respiratory Rate 14 10/02/20 16:11 Blood Pressure 118/79 10/02/20 16:11 Pulse Oximetry 99 10/02/20 16:11 MDM - Chest Pain MDM Narrative: Medical decision making narrative: The patient came in complaining of atypical chest pain worse with deep breaths and reproducible with palpation. Troponin and EKG are normal and he is only 30 years old. Typical chest pain is very unlikely. We will put in a care coordination order to get him a cardiology consultation. Recommended following up with primary care physician in a week to follow this and discuss his elevated liver enzymes again which he thinks are related to fatty liver disease. Differential Diagnosis: Cardiac arrest differential diagnosis: Likely acute massive pulmonary embolism (atypical chest pain; angina; HI) Lab Data: Labs: Lab Results 10/02/20 10/02/20 10/02/20 Range/Units 17:15 17:15 17:15 WBC 9.5 (4.0-10.0) 10^3/ uL RBC 4.97 (4.1-5.3) 10^6/u L Hgb 15.9 (11.7-16.6) g/dL Hct 45.7 (42.0-52.0) % MCV 92.0 (80-94) fL MCH 32.0 (28.0-34.0) pg MCHC 34.8 (30.0-36.0) g/dL RDW 11.9 L (12.1-15.1) % Plt Count 295 (130-400) 10^3/c mm MPV 11.3 H (7.4-10.4) fL Neut % (Auto) 75.3 % Lymph % (Auto) 16.4 % [place] % (Auto) 6.7 % Eos % (Auto) 0.7 % Baso % (Auto) 0.7 % Neut # (Auto) 7.16 (1.8-7.7) 10^3/u L Lymph # (Auto) 1.6 (0.8-4.8) 10^3/u L [place] # (Auto) 0.6 (0.2-0.9) 10^3/u L Eos # (Auto) 0.1 (0.0-0.8) 10^3/u L Baso # (Auto) 0.1 (0.0-0.1) 10^3/u L Nucleated RBC % (a uto) 0 % Nucleated RBCs # 0.0 /100WBC D-Dimer 0.38 (0-0.59) ug/mIFE U Sodium 136 (136-145) mmol/L Potassium 3.9 (3.5-5.1) mmol/L Chloride 96 L (98-107) mmol/L Carbon Dioxide 26 (22-29) mmol/L Anion Gap 17.9 (5-19) BUN 12 (6-20) mg/dL Creatinine 0.9 (0.7-1.2) mg/dL GFR Calculation 99.1 (90-130) mL/min Glucose 95 (65-115) mg/dL Calculated Osmolal ity 282 L (285-295) mOsm/k g Calcium 10.0 (8.5-10.5) mg/dL Total Bilirubin 0.4 (0.15-1.2) mg/dL AST 43 H (0-40) U/L ALT 74 H (0-41) U/L Alkaline Phosphata se 92 (40-130) IU/L Troponin T Baselin e (0-15) ng/L Total Protein 7.3 (6.6-8.7) g/dL Albumin 4.6 (3.5-5.2) g/dL Globulin 2.7 (1.3-4.6) g/dL //20 Range/Units 17:15 WBC (4.0-10.0) 10^3/ uL RBC (4.1-5.3) 10^6/u L Hgb (11.7-16.6) g/dL Hct (42.0-52.0) % MCV (80-94) fL MCH (28.0-34.0) pg MCHC (30.0-36.0) g/dL RDW (12.1-15.1) % Plt Count (130-400) 10^3/c mm MPV (7.4-10.4) fL Neut % (Auto) % Lymph % (Auto) % [place] % (Auto) % Eos % (Auto) % Baso % (Auto) % Neut # (Auto) (1.8-7.7) 10^3/u L Lymph # (Auto) (0.8-4.8) 10^3/u L [place] # (Auto) (0.2-0.9) 10^3/u L Eos # (Auto) (0.0-0.8) 10^3/u L Baso # (Auto) (0.0-0.1) 10^3/u L Nucleated RBC % (a uto) % Nucleated RBCs # /100WBC D-Dimer (0-0.59) ug/mIFE U Sodium (136-145) mmol/L Potassium (3.5-5.1) mmol/L Chloride (98-107) mmol/L Carbon Dioxide (22-29) mmol/L Anion Gap (5-19) BUN (6-20) mg/dL Creatinine (0.7-1.2) mg/dL GFR Calculation (90-130) mL/min Glucose (65-115) mg/dL Calculated Osmolal ity (285-295) mOsm/k g Calcium (8.5-10.5) mg/dL Total Bilirubin (0.15-1.2) mg/dL AST (0-40) U/L ALT (0-41) U/L Alkaline Phosphata se (40-130) IU/L Troponin T Baselin e 6 (0-15) ng/L Total Protein (6.6-8.7) g/dL Albumin (3.5-5.2) g/dL Globulin (1.3-4.6) g/dL Discharge Plan Discharge Patient Disposition: Home Clinical Impression: Elevated liver enzymes Chest pain Qualifiers: Chest pain type: other chest pain Qualified Code(s): R07.89 - Other chest pain Condition: Stable Prescriptions: No Action buspirone 10 mg tablet 10 mg PO TID@09,17,22 RF: 0 metoprolol tartrate 100 mg Tablet 100 mg PO BID@0900,2100 RF: 0 lisinopril-hydrochlorothiazide 20-25 mg Tablet 1 tab PO BID@10,19 RF: 0 pantoprazole 40 mg tablet,delayed release (DR/EC) 40 mg PO DAILY@0900 RF: 0 ondansetron HCl [Zofran] 4 mg tablet 4 mg PO Q4H Qty: 10 RF: 0 Discharge Orders: Discharge ED (Routine); Ordered 10/02/20 Ordered By: Lauri Mark Referrals: Chloé Mars MD [Primary Care Provider] - Discharge Diet: Advance as tolerated Discharge Activity: Resume usual activity Activity Restrictions/Additional Instructions: You have chest pain of unknown cause. Care coordination will call you and help you get an appointment with a taker off braker machine to get this more thoroughly evaluated as an outpatient. Please return to the ER with worsening symptoms. Also your liver enzymes are slightly elevated. They are much better than the last visit here. Please continue to follow-up with your primary care physician in another week to discuss this further. Coding Level of Care Code ED Service Cashier for Al Fwd Exam Comprehensive
[2020-10-02] MEDS: lidocaine 2% viscous 15 ML, aluminum-mag hydrox-simethicon 30 ML, sucralfate oral liq 1 GM PO (17:03)
[2020-10-02 17:25] LABS: Basophils # 0.1 10^3/uL (0.0-0.1); Basophils % 0.7 %; Eosinophils # 0.1 10^3/uL (0.0-0.8); Eosinophils % 0.7 %; Hematocrit 45.7 % (42.0-52.0); Hemoglobin 15.9 g/dL (11.7-16.6); Lymphocytes # 1.6 10^3/uL (0.8-4.8); Lymphocytes % 16.4 %; Mean Corpuscular HGB Conc 34.8 g/dL (30.0-36.0); Mean Platelet Volume 11.3 fL (7.4-10.4); Monocytes # 0.6 10^3/uL (0.2-0.9); Monocytes % 6.7 %; Neutrophils # 7.16 10^3/uL (1.8-7.7); Neutrophils % 75.3 %; Nucleated Red Blood Cells % 0 %; Platelet Count 295 10^3/cmm (130-400); Red Blood Count 4.97 10^6/uL (4.1-5.3); Red Cell Distribution Width 11.9 % (12.1-15.1); White Blood Count 9.5 10^3/uL (4.0-10.0)
[2020-10-02 17:44] LABS: Troponin(5th) Baseline 6 ng/L (0-15)
[2020-10-02 17:48] LABS: D Dimer 0.38 ug/mIFEU (0-0.59)
[2020-10-02 17:56] LABS: Alanine Aminotransferase 74 U/L (0-41); Albumin Level 4.6 g/dL (3.5-5.2); Alkaline Phosphatase 92 IU/L (40-130); Aspartate Amino Transferase 43 U/L (0-40); Blood Urea Nitrogen 12 mg/dL (6-20); Carbon Dioxide 26 mmol/L (22-29); Chloride 96 mmol/L (98-107); Globulin 2.7 g/dL (1.3-4.6); Glomerular Filtration Rate 99.1 mL/min (90-130); Glucose 95 mg/dL (65-115); Osmolality Calculated 282 mOsm/kg (285-295); Sodium 136 mmol/L (136-145); Total Bilirubin 0.4 mg/dL (0.15-1.2); Total Protein 7.3 g/dL (6.6-8.7)
[2020-10-02 17:57] LABS: Anion Gap 17.9 (5-19)
[2020-10-02 17:58] LABS: Potassium 3.9 mmol/L (3.5-5.1)
[2020-10-02] MEDS: LORazepam 2 mg/mL INJ 1 mL 0.5 MG IVP (18:21)
--- NOTE | 2020-10-02 18:40 | ECG_ITS ---
[facility] Test Date: 2020-10-02 Pat Name: Buddy Cowan Department: Room: Gender: Male Box Car Bracer: : 1990 Requested By: Lauri Mark Order Number: [id number] Guzman MD: Jorje Eller M.D. Measurements Intervals [place] Rate: 63 P: 41 DE: 203 QRS: 50 QRSD: 98 T: 41 QT: 364 QTc: 374 Interpretive Statements SINUS RHYTHM Compared to ECG 10/02/2020 16:07:00 Sinus arrhythmia no longer present Electronically Signed On 10-03-2020 16:59:17 [employer]BI[employer] ARCHITECT by Jorje Eller M.D. [email or web address] county medical centerWSI [email or web address] medical specialty hospital - [id number]
--- NOTE | 2020-10-05 11:03 | DCPLANNER ---
corporate development manager had message to schedule a follow up appointment for patient with cardiology. corporate development manager called heart care, spoke with Nelly, gave clinic patients information. Patients information will be printed and reviewed. A follow up appointment is scheduled for Monday, October 26, 2020 at 3:[address] Wu. corporate development manager called phone number [phone], to give patient appointment information. corporate development manager unable to speak with patient at this time, a voicemail was left for patient to return casey saw operator phone call for appointment information.
--- NOTE | 2020-10-28 15:59 | DCPLANNER ---
Patient had a follow up appointment scheduled for 10.26.20 with heart care - appointment was cancelled.
== END 2020-10-02 19:29 | disposition home or self-care (01) ==
PROVIDERS: Emergency Provider Family Medicine; PCP Family Medicine
DX: R07.9 Chest pain, unspecified (principal); R74.8 Abnormal levels of other serum enzymes
CPT/HCPCS: 12345; 71045; 80053; 84484; 85025; 85378; 93005; 96374; 99281; 99283; J2060

== ENCOUNTER 2020-10-12 23:57 | Emergency (ER) | payer MEDICAID, SELFPAY ==
[2020-10-12 23:59] VITALS: BP 187/112; PULSE 92; RESP 18; TEMP 36.7; O2SAT 96; BMI 34.5
--- NOTE | 2020-10-13 00:10 | ED_ITS ---
HPI - Abdominal Pain General: Chief Complaint: Abdominal Pain Stated Complaint: throwing up red blood/has fatty liver disease Time Seen by Provider: 10/13/20 00:03 Source: patient Mode of arrival: ambulatory Limitations: no limitations History of Present Illness: HPI narrative: 30-year-old male states been having epigastric pain, vomiting throughout the night. He states his first vomitus is were brown and had an episode of bloody vomitus. He does have a history of reflux. He states pain is sharp in nature and rates it as 7 out of 10. Denies any worsening improving factors. Denies any diarrhea denies any blood in his stool. He denies any fevers. Associated Symptoms: Reports nausea and vomiting; Denies chills, dysuria and fever(s) Review of Systems Const: Denies: fever(s), chills, body aches or change in appetite Eyes: Denies: blurry vision or eye discomfort ENMT: Denies: throat pain or dental pain Card: Denies: chest pain Resp: Denies: dyspnea GI: Reports: abdominal pain, nausea and vomiting : Denies: dysuria Musc: Denies: neck pain or back pain Skin/Breast: Denies: rash Neuro: Denies: headache(s) Psych: Denies: depression Kris/Lymph: Denies: easy bruising All/Imm: Denies: urticaria PFSH ED PFSH: Social History (Updated 09/16/20 @ 16:31 by Chapito Flood RN) Smoking and tobacco status: never smoked Alcohol intake: current Alcohol intake frequency: 0-2 Drinks per Day Current gender identity: Male Physical Exam Const: COMMON NORMALS: no acute distress, patient oriented x3 and healthy appearing HENMT: COMMON NORMALS: normocephalic and atraumatic HEAD & SCALP: normocephalic and atraumatic Eye: COMMON NORMALS: Equal, round and reactive pupils present and EOMs intact bilaterally PUPIL: Yes Equal, round and reactive pupils present Neck/C-Spine: COMMON NORMALS: full ROM and supple Chest: COMMONS NORMALS: normal inspection of the chest and normal palpation of entire chest wall Resp: COMMON NORMALS: normal respiratory effort, No retractions, No use of accessory muscles and clear to auscultation bilaterally AUSCULTATION: clear to auscultation bilaterally Cardio: COMMON NORMALS: regular rate, regular rhythm and No murmurs present ( Cardio) RATE: regular rate RHYTHM: regular rhythm GI: COMMON NORMALS: Normal to inspection, nondistended, normoactive bowel sounds present, Soft to palpation, non-tender and no masses PALPATION: Yes Soft to palpation Extremity: COMMON NORMALS: normal to inspection and full ROM Neuro: COMMON NORMALS: patient oriented x3, moves all extremities and no focal motor deficits Psych: COMMON NORMALS: mental status grossly normal, Normal thought process present and cooperative THOUGHT PROCESS: Normal thought process present Skin: COMMON NORMALS: no rashes or lesions noted and no wounds GENERAL SKIN EXAM: no rashes or lesions noted Course Vital Signs: Vital signs: Vital Signs Temperature 98.0 F 10/12/20 23:59 Pulse Rate 94 10/13/20 00:32 Respiratory Rate 18 10/13/20 00:32 Blood Pressure 187/112 10/12/20 23:59 Pulse Oximetry 99 10/13/20 00:40 MDM - Abdominal Pain MDM Narrative: Medical decision making narrative: Patient presents with vomiting since resolved. He feels much improved after Zofran and pain meds. Patient has no blood in his stool and his hemoglobin here is stable. Likely has a small Sherrell-Elam tear. Patient is already on PPI and is continue to take that. We will place him on Zofran for home. Informed if he has any more vomiting or notices any blood in his stool he is to return immediately. He understands and agrees to plan. He is to follow-up his PCP in 2 to 4 days. Lab Data: Labs: Lab Results 10/13/20 10/13/20 Range/Units 00:15 00:15 WBC 8.0 (4.0-10.0) 10^3/ uL RBC 4.92 (4.1-5.3) 10^6/u L Hgb 15.4 (11.7-16.6) g/dL Hct 45.0 (42.0-52.0) % MCV 91.5 (80-94) fL MCH 31.3 (28.0-34.0) pg MCHC 34.2 (30.0-36.0) g/dL RDW 11.9 L (12.1-15.1) % Plt Count 242 (130-400) 10^3/c mm MPV 11.3 H (7.4-10.4) fL Neut % (Auto) 58.3 % Lymph % (Auto) 32.0 % [place] % (Auto) 7.6 % Eos % (Auto) 1.5 % Baso % (Auto) 0.5 % Neut # (Auto) 4.66 (1.8-7.7) 10^3/u L Lymph # (Auto) 2.6 (0.8-4.8) 10^3/u L [place] # (Auto) 0.6 (0.2-0.9) 10^3/u L Eos # (Auto) 0.1 (0.0-0.8) 10^3/u L Baso # (Auto) 0.0 (0.0-0.1) 10^3/u L Nucleated RBC % (a uto) 0 % Nucleated RBCs # 0.0 /100WBC Sodium 134 L (136-145) mmol/L Potassium 3.4 L (3.5-5.1) mmol/L Chloride 96 L (98-107) mmol/L Carbon Dioxide 24 (22-29) mmol/L Anion Gap 17.4 (5-19) BUN 13 (6-20) mg/dL Creatinine 0.9 (0.7-1.2) mg/dL GFR Calculation 99.1 (90-130) mL/min Glucose 89 (65-115) mg/dL Calculated Osmolal ity 278 L (285-295) mOsm/k g Calcium 9.3 (8.5-10.5) mg/dL Total Bilirubin 0.4 (0.15-1.2) mg/dL AST 34 (0-40) U/L ALT 56 H (0-41) U/L Alkaline Phosphata se 84 (40-130) IU/L Total Protein 7.1 (6.6-8.7) g/dL Albumin 4.3 (3.5-5.2) g/dL Globulin 2.8 (1.3-4.6) g/dL Lipase 29 (13-60) U/L Imaging Data ^: CT Abd/Pel: Radiologist's impression: [address] [place] [address] CT Scan Report Signed Patient: Buddy Cowan Unit #: [id number] : 1990 Age/Sex: 30 / M ADM Date: 10/12/20 Loc: ER Room/Bed: Attending Dr: Ordering Provider/Ordering MD: Yamil Sharif MD Date of Service: 10/13/20 Procedure(s): CT abdomen pelvis w con* [id number] Accession Number(s): [id number] Report Number: [id number] PROCEDURE INFORMATION: Exam: CT Abdomen And Pelvis With Contrast Exam date and time: 10/13/2020 12:20 AM Age: 30 years old Clinical indication: Abdominal pain; Generalized; Additional info: Abd pain TECHNIQUE: Imaging protocol: Computed tomography of the abdomen and pelvis with intravenous contrast. Radiation optimization: All CT scans at this facility use at least one of these dose optimization techniques: automated exposure control; mA and/or kV adjustment per patient size (includes targeted exams where dose is matched to clinical indication); or iterative reconstruction. Contrast material: OMNI 300; Contrast volume: 95 ml; Contrast route: INTRAVENOUS (IV); COMPARISON: CT abdomen pelvis w con* [id number] 09/16/2020 5:49 PM RADIATION DOSE METRICS: Total DLP (mGy-cm): 1676.21 FINDINGS: Lungs: There is some minimal subsegmental atelectasis at the left lung base. Liver: There is a diffuse decrease in hepatic parenchymal density, consistent with mild fatty infiltration. Fatty liver is improved compared with 09/16/2020. There is 1.6 cm sized hypoenhancing lesion in the inferior tip of the liver with some peripheral enhancement. This is not significantly changed from 09/16/2020. Gallbladder and bile ducts: The gallbladder is normal. Pancreas: The pancreas is normal. Spleen: The spleen is normal. Adrenal glands: The adrenal glands are normal. Kidneys and ureters: The kidneys are normal. There is no evidence of hydronephrosis. There is no evidence of renal or ureteral calcifications. Stomach and bowel: There is a focal calcific density within the duodenum of uncertain significance, likely some ingested medication. There is no evidence of colitis/diverticulitis. Appendix: A normal appendix is identified. Intraperitoneal space: There is no evidence of free intraperitoneal fluid. Vasculature: Unremarkable. No abdominal aortic aneurysm. Lymph nodes: There is no evidence of lymphadenopathy. Urinary bladder: Unremarkable as visualized. Reproductive: Unremarkable as visualized. Bones/joints: Unremarkable. No acute fracture. Soft tissues: Unremarkable. CT/CT abdomen pelvis w con* [id number] IMPRESSION: 1. Fatty liver shows improvement from the previous study. 2. Small hepatic hemangioma. 3. No acute findings. Discharge Plan Discharge Patient Disposition: Home Clinical Impression: Abdominal pain Qualifiers: Abdominal location: epigastric Qualified Code(s): R10.13 - Epigastric pain Vomiting Qualifiers: Vomiting type: unspecified Vomiting Intractability: non-intractable Nausea presence: with nausea Qualified Code(s): R11.2 - Nausea with vomiting, unspecified Condition: Stable Prescriptions: New ondansetron 4 mg tablet,disintegrating 4 mg PO Q6H PRN (Reason: nausea and vomiting) Qty: 14 RF: 0 Xanax 1 mg tablet 1 mg PO BID PRN (Reason: anxiety) Qty: 5 RF: 0 No Action buspirone 10 mg tablet 10 mg PO TID@09,17,22 RF: 0 metoprolol tartrate 100 mg Tablet 100 mg PO BID@0900,2100 RF: 0 lisinopril-hydrochlorothiazide 20-25 mg Tablet 1 tab PO BID@10,19 RF: 0 Ativan 0.5 mg tablet 0.5 mg PO Q12H PRN (Reason: anxiety attack) Qty: 3 RF: 0 pantoprazole 40 mg tablet,delayed release (DR/EC) 40 mg PO DAILY@0900 RF: 0 ondansetron HCl [Zofran] 4 mg tablet 4 mg PO Q4H Qty: 10 RF: 0 Discharge Orders: Discharge ED (Routine); Ordered 10/13/20 Ordered By: Yamil Sharif Referrals: Chloé Mars MD [Primary Care Provider] - 1-3 days Discharge Diet: Advance as tolerated Discharge Activity: Resume usual activity Patient Instructions: Abdominal Pain (ED) Coding Level of Care Code ED Body Service Team Member for Al Fwd Exam Comprehensive
[2020-10-13 00:21] LABS: Basophils % 0.5 %; Eosinophils # 0.1 10^3/uL (0.0-0.8); Eosinophils % 1.5 %; Hemoglobin 15.4 g/dL (11.7-16.6); Lymphocytes # 2.6 10^3/uL (0.8-4.8); Mean Corpuscular HGB Conc 34.2 g/dL (30.0-36.0); Mean Corpuscular Hemoglobin 31.3 pg (28.0-34.0); Mean Corpuscular Volume 91.5 fL (80-94); Mean Platelet Volume 11.3 fL (7.4-10.4); Monocytes # 0.6 10^3/uL (0.2-0.9); Monocytes % 7.6 %; Neutrophils # 4.66 10^3/uL (1.8-7.7); Neutrophils % 58.3 %; Nucleated Red Blood Cells % 0 %; Platelet Count 242 10^3/cmm (130-400); Red Blood Count 4.92 10^6/uL (4.1-5.3); Red Cell Distribution Width 11.9 % (12.1-15.1)
[2020-10-13] MEDS: sodium chloride 0.9% 1,000 ML 999 ML IV (00:24)
[2020-10-13 00:28] VITALS: RESP 12
[2020-10-13] MEDS: ondansetron 2 mg/ML SDV 2 mL 4 MG IVP (00:28)
[2020-10-13] MEDS: morphine 4 mg/mL SDV 1 mL IVP (00:28)
[2020-10-13 00:32] VITALS: PULSE 94; RESP 18; O2SAT 99
--- NOTE | 2020-10-13 00:33 | PC.NURSE ---
pt attempting vomiting, pt spitting blood only. Review with pt POC of blood, CT and medication.
[2020-10-13] MEDS: iohexol 300 mg/mL 100 mL Btl IV (00:35)
[2020-10-13 00:37] LABS: Alanine Aminotransferase 56 U/L (0-41); Albumin Level 4.3 g/dL (3.5-5.2); Alkaline Phosphatase 84 IU/L (40-130); Anion Gap 17.4 (5-19); Aspartate Amino Transferase 34 U/L (0-40); Blood Urea Nitrogen 13 mg/dL (6-20); Calcium 9.3 mg/dL (8.5-10.5); Carbon Dioxide 24 mmol/L (22-29); Chloride 96 mmol/L (98-107); Globulin 2.8 g/dL (1.3-4.6); Glomerular Filtration Rate 99.1 mL/min (90-130); Glucose 89 mg/dL (65-115); Lipase 29 U/L (13-60); Osmolality Calculated 278 mOsm/kg (285-295); Potassium 3.4 mmol/L (3.5-5.1); Sodium 134 mmol/L (136-145); Total Bilirubin 0.4 mg/dL (0.15-1.2); Total Protein 7.1 g/dL (6.6-8.7)
[2020-10-13 00:40] VITALS: O2SAT 99
[2020-10-13] MEDS: lidocaine 2% viscous 15 ML, aluminum-mag hydrox-simethicon 30 ML, sucralfate oral liq 1 GM PO (01:25)
[2020-10-13] MEDS: ondansetron 4 MG Tablet PO (01:27)
[2020-10-13 01:31] VITALS: BP 130/72; PULSE 84; RESP 18; O2SAT 96
== END 2020-10-13 01:32 | disposition home or self-care (01) ==
PROVIDERS: Emergency Provider Emergency Medicine; PCP Family Medicine
DX: R10.13 Epigastric pain (principal); R11.2 Nausea with vomiting, unspecified
CPT/HCPCS: 12345; 74177; 80053; 83690; 85025; 96361; 96374; 96375; 99283; J2270; J2405; J7030; Q0162; Q9967

== ENCOUNTER → 2020-11-05 09:41 | Outpatient (BNVA) | payer MEDICAID, SELFPAY | PROVIDERS: PCP Family Medicine; Visit Provider Psychiatry & Neurology Psychiatry | DX: F41.1 Generalized anxiety disorder (principal); F41.0 Panic disorder [episodic paroxysmal anxiety] | CPT/HCPCS: 90792 ==

== ENCOUNTER → 2020-12-03 14:11 | Outpatient (BNVA) | payer MEDICAID, SELFPAY | PROVIDERS: PCP Family Medicine; Visit Provider Psychiatry & Neurology Psychiatry | DX: F41.1 Generalized anxiety disorder (principal); F41.0 Panic disorder [episodic paroxysmal anxiety] | CPT/HCPCS: 99214 ==

== ENCOUNTER 2021-01-30 17:01 | Emergency (ER) | payer MEDICAID, SELFPAY ==
[2021-01-30] VITALS (8 sets, daily range): BP systolic 135–146; BP diastolic 71–97; PULSE 80–109; RESP 14–22; TEMP 36.7; O2SAT 96–98; BMI 33.2
--- NOTE | 2021-01-30 18:11 | ECG_ITS ---
[facility] Test Date: 2021-01-30 Pat Name: Buddy Cowan Department: Room: Gender: Male Processing Associate: : 1990 Requested By: Vicki Johnson I Order Number: [id number] Reading MD: MAT NATH Measurements Intervals [place] Rate: 90 P: 51 DE: 180 QRS: 50 QRSD: 91 T: 40 QT: 328 QTc: 402 Interpretive Statements SINUS RHYTHM NONSPECIFIC T-WAVE ABNORMALITY Compared to ECG 10/02/2020 18:48:45 T-wave abnormality now present Electronically Signed On 01-31-2021 21:16:21 CDT by MAT NATH [id number]
--- NOTE | 2021-01-30 18:11 | XRR_ITS ---
PROCEDURE INFORMATION: Exam: XR Chest Exam date and time: 01/30/2021 6:13 PM Age: 30 years old Clinical indication: Chest pain, shortness of breath TECHNIQUE: Imaging protocol: XR of the chest. Views: 1 view. COMPARISON: CR XR chest 1V portable [id number] 10/02/2020 4:47 PM FINDINGS: Lungs: No pneumonia or pulmonary edema. Pleural spaces: No pleural effusion or pneumothorax. Heart/Mediastinum: The cardiac silhouette is not enlarged. The mediastinal contours are normal. Bones/joints: No acute osseous abnormality. Soft tissues: There is a left epicardial fat pad. XR/XR chest 1V portable [id number] IMPRESSION: No acute abnormality.
[2021-01-30 18:24] LABS: Basophils # 0.1 10^3/uL (0.0-0.1); Basophils % 0.7 %; Eosinophils % 0.3 %; Hemoglobin 16.6 g/dL (11.7-16.6); Lymphocytes % 21.6 %; Mean Corpuscular HGB Conc 33.9 g/dL (30.0-36.0); Mean Corpuscular Hemoglobin 31.3 pg (28.0-34.0); Mean Corpuscular Volume 92.3 fL (80-94); Mean Platelet Volume 9.9 fL (7.4-10.4); Monocytes # 0.7 10^3/uL (0.2-0.9); Monocytes % 7.3 %; Neutrophils # 6.37 10^3/uL (1.8-7.7); Neutrophils % 69.9 %; Nucleated Red Blood Cells % 0 %; Platelet Count 258 10^3/cmm (130-400); Red Blood Count 5.31 10^6/uL (4.1-5.3); Red Cell Distribution Width 13.2 % (12.1-15.1); White Blood Count 9.1 10^3/uL (4.0-10.0)
[2021-01-30 18:25] LABS: Add Urine Microscopic? NO; Charge for UA Resulting for Rev
[2021-01-30 18:28] LABS: Bilirubin Urine Neg (Negative); Blood Urine Neg (Negative); Glucose Urine UA Norm (Normal); Ketones Urine 1+ (Negative); Leukocyte Esterase Urine Negative (Negative); Nitrate Urine Negative (Negative); Protein Urine Neg (Negative); Specific Gravity, Urine 1.005 (1.005-1.030); Urine Appearance Clear (CLEAR); Urine Color Yellow (Yellow); Urobilinogen Urine Norm (Negative); pH Urine 7 (5-7)
[2021-01-30 18:34] LABS: Alanine Aminotransferase 84 U/L (0-41); Albumin Level 4.6 g/dL (3.5-5.2); Alkaline Phosphatase 95 IU/L (40-130); Anion Gap 16.3 (5-19); Aspartate Amino Transferase 62 U/L (0-40); Blood Urea Nitrogen 10 mg/dL (6-20); Calcium 8.9 mg/dL (8.5-10.5); Carbon Dioxide 27 mmol/L (22-29); Chloride 99 mmol/L (98-107); Globulin 2.5 g/dL (1.3-4.6); Glomerular Filtration Rate 132.4 mL/min (90-130); Glucose 98 mg/dL (65-115); Lipase 29 U/L (13-60); Osmolality Calculated 285 mOsm/kg (285-295); Potassium 4.3 mmol/L (3.5-5.1); Sodium 138 mmol/L (136-145); Total Bilirubin 0.8 mg/dL (0.15-1.2); Total Protein 7.1 g/dL (6.6-8.7); Troponin(5th) Baseline 6 ng/L (0-15)
[2021-01-30 18:42] LABS: D Dimer 0.35 ug/mIFEU (0-0.59)
[2021-01-30] MEDS: sodium chloride 0.9% 1,000 ML 999 ML IV (19:42)
[2021-01-30] MEDS: morphine 4 mg/mL SDV 1 mL IVP (21:25)
[2021-01-30] MEDS: ondansetron 2 mg/ML SDV 2 mL 4 MG IVP (21:26)
--- NOTE | 2021-01-30 23:30 | W.ED.CHESTPA ---
HPI - Chest Pain General: Chief Complaint: Chest Pain Stated Complaint: chest pain Time Seen by Provider: 01/30/21 17:51 Source: patient and family (significant other) Mode of arrival: ambulatory Limitations: no limitations History of Present Illness: HPI narrative: Patient is a 30-year-old male with a history of alcohol abuse and alcohol use disorder and history of liver disease. He states that he had been off alcohol for several months until recently when he was diagnosed with a superficial clot in his lower extremity. He was told that he did not need anticoagulation, however the diagnosis worried him enough that he drove him to start drinking again. He has been drinking 1-2 bottles of wine every day for the last 2 weeks. Earlier today he noticed retrosternal/epigastric pain that radiated to his shoulder. He was worried that he may be having a recurrence of his liver disease or he may be having a cardiac event. He denies diaphoresis. He has nausea and some vomiting. MD complaint: chest pain Onset (ago): hour(s) Timing of current episode: constant Prior episodes: No Onset: during rest Pain location: substernal and epigastric Pain radiation: right shoulder Severity: moderate Quality: sharp Relieving factors: nothing Exacerbating factors: nothing Associated symptoms: Reports abdominal pain and nausea; Deny diaphoresis, dyspnea, fever(s), leg edema, palpitations, sense of impending doom, syncope or vomiting Treatment prior to arrival: none Review of Systems General: Reports: 10 or more systems reviewed and unremarkable except in HPI and below Const: Denies: fever(s) or diaphoresis Card: Denies: palpitations or syncope Resp: Denies: dyspnea GI: Reports: abdominal pain and nausea; Denies: vomiting PFSH ED PFSH: Medical History (Reviewed 01/31/21 @ 00:26 by Vicki Johnson MD, [facility] [place]) STELLA (generalized anxiety disorder) Panic Social History (Reviewed 01/31/21 @ 00:26 by Vicki Johnson MD, [facility] [place]) Smoking and tobacco status: never smoked Alcohol intake: current Alcohol intake frequency: 0-2 Drinks per Day Current gender identity: Male Physical Exam Const: COMMON NORMALS: no acute distress, average body habitus, patient oriented x3, no limitations, healthy appearing, alert and well nourished HENMT: COMMON NORMALS: normocephalic, atraumatic and moist oral mucous membranes HEAD & SCALP: normocephalic and atraumatic Neck/C-Spine: COMMON NORMALS: no meningeal signs and no JVD Chest: COMMONS NORMALS: normal inspection of the chest and normal palpation of entire chest wall Resp: COMMON NORMALS: normal respiratory effort, No retractions, No use of accessory muscles, clear to auscultation bilaterally and percussion normal AUSCULTATION: clear to auscultation bilaterally PERCUSSION: percussion normal Cardio: COMMON NORMALS: no JVD, regular rate, regular rhythm, S1 normal heart sound present, S2 normal heart sound present, No gallops present (Cardio), No clicks present (Cardio), No murmurs present (Cardio), No rub (Cardio) and Peripheral pulses 2+ throughout RATE: regular rate RHYTHM: regular rhythm HEART SOUNDS: S1 normal heart sound present and S2 normal heart sound present PERIPHERAL PULSES: Peripheral pulses 2+ throughout GI: COMMON NORMALS: Normal to inspection, nondistended, normoactive bowel sounds present, Soft to palpation, No hepatosplenomegaly present, no masses and no bruits PALPATION: Yes Soft to palpation, Yes Tenderness to palpation present (GI) (epigastric) and Yes No hepatosplenomegaly present Extremity: COMMON NORMALS: normal to inspection, full ROM, capillary refill normal, no calf tenderness and no pedal edema Neuro: COMMON NORMALS: patient oriented x3 SENSORIUM/ORIENTATION: Yes alert MENINGEAL SIGNS: Yes no meningeal signs Skin: COMMON NORMALS: no rashes or lesions noted, no wounds, turgor normal, no jaundice, no petechiae and no mottling GENERAL SKIN EXAM: no rashes or lesions noted and turgor normal Course Reevaluation(s): Reevaluation #1: Discussed his lab and imaging findings with him. Only mildly elevated liver enzymes which is no concerning and otherwise no acute findings. Advised that he likely has alcoholic gastritis. He states that he has a history of gastritis and stomach ulcers. He takes a PPI and I will add Carafate to his medications. He was also advised to be on a diet for gastritis. He voiced understanding and is in agreement with the plan. I counseled him strongly on the benefits of quitting alcohol use and that he should follow-up with his primary care provider if he needs help with quitting alcohol. Time: 23:31 Vital Signs: Vital signs: Vital Signs Temperature 98.0 F 01/30/21 17:24 Pulse Rate 80 01/31/21 00:08 Respiratory Rate 17 01/31/21 00:08 Blood Pressure 146/94 01/31/21 00:08 Pulse Oximetry 98 01/31/21 00:08 MDM - Chest Pain MDM Narrative: Medical decision making narrative: 30-year-old male who presents to the emergency department with chest pain. He had been drinking alcohol consistently for about 2 weeks, 1-2 bottles of wine. Evaluation in the emergency department is unremarkable and consistent with alcoholic gastritis. He is discharged home with a prescription for Carafate. He already has a prescription for a PPI. He was counseled to quit alcohol and he says he has made a decision to do that. Medical Records: Attestation: I reviewed the patient's medical records. Lab Data: Attestation: I reviewed the patient's lab results. Labs: Lab Results 01/30/21 01/30/21 01/30/21 Range/Units 18:00 18:00 18:00 WBC 9.1 (4.0-10.0) 10^3/ uL RBC 5.31 H (4.1-5.3) 10^6/u L Hgb 16.6 (11.7-16.6) g/dL Hct 49.0 (42.0-52.0) % MCV 92.3 (80-94) fL MCH 31.3 (28.0-34.0) pg MCHC 33.9 (30.0-36.0) g/dL RDW 13.2 (12.1-15.1) % Plt Count 258 (130-400) 10^3/c mm MPV 9.9 (7.4-10.4) fL Neut % (Auto) 69.9 % Lymph % (Auto) 21.6 % [place] % (Auto) 7.3 % Eos % (Auto) 0.3 % Baso % (Auto) 0.7 % Neut # (Auto) 6.37 (1.8-7.7) 10^3/u L Lymph # (Auto) 2.0 (0.8-4.8) 10^3/u L [place] # (Auto) 0.7 (0.2-0.9) 10^3/u L Eos # (Auto) 0.0 (0.0-0.8) 10^3/u L Baso # (Auto) 0.1 (0.0-0.1) 10^3/u L Nucleated RBC % (a uto) 0 % Nucleated RBCs # 0.0 /100WBC D-Dimer (0-0.59) ug/mIFE U Sodium 138 (136-145) mmol/L Potassium 4.3 (3.5-5.1) mmol/L Chloride 99 (98-107) mmol/L Carbon Dioxide 27 (22-29) mmol/L Anion Gap 16.3 (5-19) BUN 10 (6-20) mg/dL Creatinine 0.7 (0.7-1.2) mg/dL GFR Calculation 132.4 H (90-130) mL/min Glucose 98 (65-115) mg/dL Calculated Osmolal ity 285 (285-295) mOsm/k g Calcium 8.9 (8.5-10.5) mg/dL Total Bilirubin 0.8 (0.15-1.2) mg/dL AST 62 H (0-40) U/L ALT 84 H (0-41) U/L Alkaline Phosphata se 95 (40-130) IU/L Troponin T Baselin e 6 (0-15) ng/L Troponin T 120 Min igiugig (0-15) ng/L Delta Troponin T Total Protein 7.1 (6.6-8.7) g/dL Albumin 4.6 (3.5-5.2) g/dL Globulin 2.5 (1.3-4.6) g/dL Lipase 29 (13-60) U/L Urine Color (Yellow) Urine Appearance (CLEAR) Urine pH (5-7) Ur Specific Gravit y (1.005-1.030) Urine Protein (Negative) Urine Glucose (UA) (Normal) Urine Ketones (Negative) Urine Blood (Negative) Urine Nitrate (Negative) Urine Bilirubin (Negative) Urine Urobilinogen (Negative) mg/dL Ur Leukocyte Jeniffer ase (Negative) 01/30/21 01/30/21 01/30/21 Range/Units 18:20 18:20 22:19 WBC (4.0-10.0) 10^3/ uL RBC (4.1-5.3) 10^6/u L Hgb (11.7-16.6) g/dL Hct (42.0-52.0) % MCV (80-94) fL MCH (28.0-34.0) pg MCHC (30.0-36.0) g/dL RDW (12.1-15.1) % Plt Count (130-400) 10^3/c mm MPV (7.4-10.4) fL Neut % (Auto) % Lymph % (Auto) % [place] % (Auto) % Eos % (Auto) % Baso % (Auto) % Neut # (Auto) (1.8-7.7) 10^3/u L Lymph # (Auto) (0.8-4.8) 10^3/u L [place] # (Auto) (0.2-0.9) 10^3/u L Eos # (Auto) (0.0-0.8) 10^3/u L Baso # (Auto) (0.0-0.1) 10^3/u L Nucleated RBC % (a uto) % Nucleated RBCs # /100WBC D-Dimer 0.35 (0-0.59) ug/mIFE U Sodium (136-145) mmol/L Potassium (3.5-5.1) mmol/L Chloride (98-107) mmol/L Carbon Dioxide (22-29) mmol/L Anion Gap (5-19) BUN (6-20) mg/dL Creatinine (0.7-1.2) mg/dL GFR Calculation (90-130) mL/min Glucose (65-115) mg/dL Calculated Osmolal ity (285-295) mOsm/k g Calcium (8.5-10.5) mg/dL Total Bilirubin (0.15-1.2) mg/dL AST (0-40) U/L ALT (0-41) U/L Alkaline Phosphata se (40-130) IU/L Troponin T Baselin e (0-15) ng/L Troponin T 120 Min igiugig 6.00 (0-15) ng/L Delta Troponin T Not Reportable Total Protein (6.6-8.7) g/dL Albumin (3.5-5.2) g/dL Globulin (1.3-4.6) g/dL Lipase (13-60) U/L Urine Color Yellow (Yellow) Urine Appearance Clear (CLEAR) Urine pH 7 (5-7) Ur Specific Gravit y 1.005 (1.005-1.030) Urine Protein Neg (Negative) Urine Glucose (UA) Norm (Normal) Urine Ketones 1+ H (Negative) Urine Blood Neg (Negative) Urine Nitrate Negative (Negative) Urine Bilirubin Neg (Negative) Urine Urobilinogen Norm (Negative) mg/dL Ur Leukocyte Jeniffer ase Negative (Negative) Imaging Data^: CXR: Attestation: I personally reviewed and interpreted this imaging study as follows: My impression: No acute findings EKG Data^: EKG 1: Attestation: I personally reviewed and interpreted this EKG as follows: EKG interpretation date: 01/30/21 EKG interpretation time: 19:41 Prior EKG tracings: not available for review Interpretation: Sinus rhythm HR 90 bpm Normal axis No ST changes. Discharge Plan Discharge Patient Disposition: Home Clinical Impression: Acute alcoholic gastritis Qualifiers: Gastritis bleeding: without bleeding Qualified Code(s): K29.20 - Alcoholic gastritis without bleeding Condition: Stable Prescriptions: New Carafate 100 mg/mL suspension 1 g PO TID Qty: 400 RF: 0 Zofran 4 mg tablet 4 mg PO Q8H PRN (Reason: nausea and vomiting) Qty: 20 RF: 0 Continued clonazepam 0.5 mg tablet 0.5 mg PO BID PRN (Reason: anxiety) 30 Days Qty: 60 RF: 3 metoprolol succinate 100 mg tablet extended release 24 hr 100 mg PO BID RF: 0 iron 325 mg (65 mg iron) Tablet 325 mg PO DAILY RF: 0 lisinopril 40 mg Tablet 40 mg PO QAM RF: 0 Nexium 24HR 20 mg Capsule,Delayed Release(Dr/Ec) 20 mg PO QPM RF: 0 Liver Support Supplement 1 cap PO BID RF: 0 Vitamin B-12 1 tab PO DAILY RF: 0 Vitamin D3 1 cap PO DAILY RF: 0 hawthorn franklin 1 cap PO DAILY RF: 0 vitamin A 1 cap PO DAILY RF: 0 Discharge Orders: Discharge ED (Routine); Ordered 01/30/21 Ordered By: Vicki Johnson Referrals: Chloé Mars MD [Primary Care Provider] - 1-3 days Discharge Diet: Usual diet and As Directed Discharge Activity: Increase activity as tolerated Patient Instructions: Gastritis (ED), Diet for Ulcers and Gastritis (ED) Activity Restrictions/Additional Instructions: Return for any new or worsening symptoms. Follow up with your primary care provider within 3 days. Take the medications as prescribed. Most importantly, you need to quit drinking alcohol. 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
[2021-01-31 00:08] VITALS: BP 146/94; PULSE 80; RESP 17; O2SAT 98
== END 2021-01-31 00:09 | disposition home or self-care (01) ==
PROVIDERS: Emergency Provider Family Medicine; PCP Family Medicine
DX: K29.20 Alcoholic gastritis without bleeding (principal)
CPT/HCPCS: 71045; 80053; 81003; 83690; 84484; 85025; 85378; 93005; 96361; 96374; 96375; 99284; J2270; J2405; J7030

== ENCOUNTER → 2021-02-02 14:49 | Outpatient (BNVA) | payer MEDICAID, SELFPAY | PROVIDERS: PCP Family Medicine; Visit Provider Psychiatry & Neurology Psychiatry | DX: F41.1 Generalized anxiety disorder (principal); F41.0 Panic disorder [episodic paroxysmal anxiety]; F10.10 Alcohol abuse, uncomplicated | CPT/HCPCS: 99214 ==

== ENCOUNTER 2021-02-19 11:05 | Emergency (ER) | payer MEDICAID, SELFPAY ==
[2021-02-19 11:12] VITALS: BP 168/100; PULSE 95; RESP 18; TEMP 36.7; O2SAT 98; BMI 33.9
--- NOTE | 2021-02-19 11:22 | US_ITS ---
WS: [id number] RIGHT UPPER QUADRANT ULTRASOUND HISTORY: RUQ abd pain COMPARISON: 12/14/2016 Liver: 17.8 cm in length. Mildly enlarged liver with coarse echotexture and hepatic steatosis. The en tire liver is not evaluated well due to attenuation. Gallbladder: Normally distended gallbladder with no stones or wall thickening. CBD: 0.4 cm Pancreas: Not visualized. Right kidney: 11.2 cm in length. Normal size and echogenicity. No hydronephrosis or mass. Aorta and IVC: Unremarkable abdominal aorta and IVC. No ascites. US/US gall bladder [id number] IMPRESSION: 1. Negative gallbladder. 2. Mild hepatomegaly with hepatic steatosis. 3. Poorly visualized pancreas and the entire liver is not well imaged.
--- NOTE | 2021-02-19 11:22 | CT_ITS ---
WS: [id number] CT ABDOMEN AND PELVIS WITH CONTRAST HISTORY: RIGHT upper quadrant pain. TECHNIQUE: Imaging performed of the abdomen and pelvis with IV contrast. Single phase imaging of the abdomen. Coronal and sagittal reformats are submitted. All CT scans at [facility] use at least one of these dose optimization techniques: automated exposure control; mA and/or kV adjustment per patient size (includes targeted exams where dose is matched to clinical indication); or iterativ e reconstruction. IV CONTRAST: Omnipaque 300; 95 mL IV. Oral contrast: No DLP: 2016.78 mGy.cm COMPARISON: 10/13/2020 Lower thorax: Lung bases are clear. Heart is normal size. Small hiatal hernia. Liver/biliary system: Mildly enlarged liver measuring 18.6 cm in length. There is diffuse moderate to severe hepatic steatosis. Peripherally enhancing RIGHT hepatic nodule measuring 2.3 cm consistent wi th a hemangioma. Portal vein is normal. Gallbladder: Normal. No gallstones or wall thickening. No pericholecystic fluid. Pancreas: Normal size pancreas and pancreatic duct. No adjacent inflammation. Spleen: Normal size spleen. No mass or infarct. Adjacent splenule. Adrenal glands: Normal. Right kidney: Normal. Left kidney: Normal. Aorta: Normal. Lymphadenopathy: None. Free fluid: None. GI tract: Normal appendix. There is mild fluid distention of the stomach. No inflammatory changes or mucosal thickening within the GI tract. Abdominal wall: Unremarkable abdominal wall. No hernia. Pelvis: No free fluid or adenopathy within the pelvis. Bones: Unremarkable. CT/CT abdomen pelvis w con* [id number] IMPRESSION: 1. Mild hepatomegaly with moderate hepatic steatosis. 2. Stable RIGHT hepatic hemangioma. 3. Negative gallbladder. 4. Normal appendix. 5. No renal stone or obstruction.
--- NOTE | 2021-02-19 11:23 | W.ED.ABDPA2 ---
HPI - Abdominal Pain General: Chief Complaint: Abdominal Pain Stated Complaint: LIVER ISSUES/PAIN, BLOATING, NUMBNESS IN ABD Time Seen by Provider: 02/19/21 11:14 History of Present Illness: HPI narrative: 30-year-old male presents emergency room complaining of right upper quadrant pain that began last night. Patient states he has a history of fatty liver related to alcohol use but he stopped drinking. He also says he can tell he has ketones in his armpits. He denies any fever he has not had any vomiting but has had some nausea no diarrhea. He is not currently on any lactulose or spironolactone. In talking to him does not sound as if he is seeing gastroenterology he has had an EGD and tells me he had upper GI ulcer in the past as recently as 1 week ago he states he vomited up to a cupful of blood but was not evaluated for it. MD elicited complaint: abdominal pain Pertinent past history: other (Hepatosteatosis) Onset (ago): hour(s) Pain Consistency: intermittent Location: RUQ Severity: moderate Quality: cramping Radiation: back Exacerbating factors: other (Anxiety) Relieving factors: nothing Associated Symptoms: Reports dyspepsia, heartburn and nausea; Denies belching, bloating, change in bowel habits, change in stool character, chills, coffee ground emesis, constipation, GI cramping, diarrhea, dysuria, excessive flatus, fever(s), hematochezia, hematuria, hematemesis, fecal incontinence, loose stools, melena, poor appetite, syncope and vomiting Review of Systems Const: Denies: fever(s) or chills ENMT: Denies: throat pain, ear or mastoid pain, nasal discharge or nasal congestion Card: Denies: syncope Resp: Denies: dyspnea, productive cough or non-productive cough GI: Reports: nausea and heartburn; Denies: vomiting, hematemesis, coffee ground emesis, diarrhea, constipation, bloating, GI cramping, belching, excessive flatus, fecal incontinence, change in bowel habits, change in stool character, hematochezia or melena : Denies: dysuria or hematuria Skin/Breast: Denies: rash or pruritus PFSH ED PFSH: Medical History Alcohol abuse STELLA (generalized anxiety disorder) Panic Social History Smoking and tobacco status: never smoked Alcohol intake: current Alcohol intake frequency: 0-2 Drinks per Day Current gender identity: Male Physical Exam Const: COMMON NORMALS: no acute distress GENERAL APPEARANCE: cooperative and comfortable ORIENTATION/CONSCIOUSNESS: Yes awake, Yes oriented to person, Yes oriented to place and Yes oriented to time HENMT: COMMON NORMALS: normocephalic, atraumatic and hearing grossly normal bilaterally HEAD & SCALP: normocephalic and atraumatic Neck/C-Spine: COMMON NORMALS: no JVD Resp: COMMON NORMALS: normal respiratory effort, No retractions, No use of accessory muscles and clear to auscultation bilaterally AUSCULTATION: clear to auscultation bilaterally Cardio: COMMON NORMALS: no JVD, regular rate, regular rhythm and No murmurs present (Cardio) RATE: regular rate RHYTHM: regular rhythm GI: COMMON NORMALS: No hepatosplenomegaly present AUSCULTATION: Yes normoactive bowel sounds PALPATION: Yes Tenderness to palpation present (GI) (Pain disproportionate to exam.) Details: RUQ, No Guarding due to palpation present (GI) and Yes No hepatosplenomegaly present Extremity: COMMON NORMALS: normal to inspection, capillary refill normal, no clubbing, cyanosis or edema, no calf tenderness and no pedal edema Neuro: SENSORIUM/ORIENTATION: Yes oriented to person, Yes oriented to place and Yes oriented to time Skin: COMMON NORMALS: no rashes or lesions noted GENERAL SKIN EXAM: no rashes or lesions noted Course Vital Signs: Vital signs: Vital Signs Temperature 98.1 F 02/19/21 11:12 Pulse Rate 108 H 02/19/21 13:31 Respiratory Rate 16 02/19/21 13:31 Blood Pressure 150/91 02/19/21 13:31 Pulse Oximetry 98 02/19/21 13:31 MDM - Abdominal Pain MDM Narrative: Medical decision making narrative: Patient extremely anxious hyperventilating multiple times. As he gets more anxious and hyperventilates he reports increasing abdominal pain. He has various complaints throughout the episode. I was at the bedside with him encouraging him to to slow his breathing multiple times he is complaining of numbness in all of his extremities face and abdomen. Patient given Ativan also encouraged to take his Klonopin. You think you would benefit from a PPI. And he probably does need to have an EGD done. His hemoglobin is stable he has no sign of upper GI bleeding at this time. Discussed with him that the hepatosteatosis will generally be a minor issue as long as he loses some weight and refrains from drinking. He has been seen at [facility] in the past think is probably more important for his overall health to get his anxiety under control at this point. Suspect the excessive drinking was correlated with his anxiety. Encourage patient to follow-up with [facility] as well as primary care provider. Lab Data: Labs: Lab Results 02/19/21 02/19/21 02/19/21 Range/Units 11:28 11:28 11:28 WBC 11.1 H (4.0-10.0) 10^3/ uL RBC 5.29 (4.1-5.3) 10^6/u L Hgb 16.7 H (11.7-16.6) g/dL Hct 48.0 (42.0-52.0) % MCV 90.7 (80-94) fL MCH 31.6 (28.0-34.0) pg MCHC 34.8 (30.0-36.0) g/dL RDW 12.8 (12.1-15.1) % Plt Count 267 (130-400) 10^3/c mm MPV 9.7 (7.4-10.4) fL Neut % (Auto) 72.0 % Lymph % (Auto) 20.2 % [place] % (Auto) 6.4 % Eos % (Auto) 0.4 % Baso % (Auto) 0.7 % Neut # (Auto) 8.02 H (1.8-7.7) 10^3/u L Lymph # (Auto) 2.3 (0.8-4.8) 10^3/u L [place] # (Auto) 0.7 (0.2-0.9) 10^3/u L Eos # (Auto) 0.0 (0.0-0.8) 10^3/u L Baso # (Auto) 0.1 (0.0-0.1) 10^3/u L Nucleated RBC % (a uto) 0 % Nucleated RBCs # 0.0 /100WBC PT (12.1-14.9) SECO NDS INR (0.8-1.2) APTT (23.9-36.7) SECO NDS Sodium 138 (136-145) mmol/L Potassium 3.6 (3.5-5.1) mmol/L Chloride 97 L (98-107) mmol/L Carbon Dioxide 24 (22-29) mmol/L Anion Gap 20.6 H (5-19) BUN 10 (6-20) mg/dL Creatinine 0.9 (0.7-1.2) mg/dL GFR Calculation 99.1 (90-130) mL/min Glucose 97 (65-115) mg/dL Calculated Osmolal ity 285 (285-295) mOsm/k g Calcium 9.0 (8.5-10.5) mg/dL Total Bilirubin 0.4 (0.15-1.2) mg/dL AST 49 H (0-40) U/L ALT 70 H (0-41) U/L Alkaline Phosphata se 106 (40-130) IU/L Ammonia 20 (16-60) umol/L Total Protein 8.1 (6.6-8.7) g/dL Albumin 4.6 (3.5-5.2) g/dL Globulin 3.5 (1.3-4.6) g/dL Lipase 20 (13-60) U/L 05/14/21 Range/Units 12:03 WBC (4.0-10.0) 10^3/ uL RBC (4.1-5.3) 10^6/u L Hgb (11.7-16.6) g/dL Hct (42.0-52.0) % MCV (80-94) fL MCH (28.0-34.0) pg MCHC (30.0-36.0) g/dL RDW (12.1-15.1) % Plt Count (130-400) 10^3/c mm MPV (7.4-10.4) fL Neut % (Auto) % Lymph % (Auto) % [place] % (Auto) % Eos % (Auto) % Baso % (Auto) % Neut # (Auto) (1.8-7.7) 10^3/u L Lymph # (Auto) (0.8-4.8) 10^3/u L [place] # (Auto) (0.2-0.9) 10^3/u L Eos # (Auto) (0.0-0.8) 10^3/u L Baso # (Auto) (0.0-0.1) 10^3/u L Nucleated RBC % (a uto) % Nucleated RBCs # /100WBC PT 13.40 (12.1-14.9) SECO NDS INR 1.00 (0.8-1.2) APTT 29.5 (23.9-36.7) SECO NDS Sodium (136-145) mmol/L Potassium (3.5-5.1) mmol/L Chloride (98-107) mmol/L Carbon Dioxide (22-29) mmol/L Anion Gap (5-19) BUN (6-20) mg/dL Creatinine (0.7-1.2) mg/dL GFR Calculation (90-130) mL/min Glucose (65-115) mg/dL Calculated Osmolal ity (285-295) mOsm/k g Calcium (8.5-10.5) mg/dL Total Bilirubin (0.15-1.2) mg/dL AST (0-40) U/L ALT (0-41) U/L Alkaline Phosphata se (40-130) IU/L Ammonia (16-60) umol/L Total Protein (6.6-8.7) g/dL Albumin (3.5-5.2) g/dL Globulin (1.3-4.6) g/dL Lipase (13-60) U/L Discharge Plan Discharge Patient Disposition: Home Clinical Impression: Duodenal ulcer Prescriptions: New pantoprazole 40 mg tablet,delayed release (DR/EC) 40 mg PO QAM 56 Days Qty: 56 RF: 0 Discontinued esomeprazole magnesium [Nexium 24HR] 20 mg Capsule,Delayed Release(Dr/Ec) 20 mg PO QPM RF: 0 No Action clonazepam 0.5 mg tablet 0.5 mg PO BID PRN (Reason: anxiety) 30 Days Qty: 60 RF: 3 metoprolol succinate 100 mg tablet extended release 24 hr 100 mg PO BID RF: 0 iron 325 mg (65 mg iron) Tablet 325 mg PO DAILY RF: 0 lisinopril 40 mg Tablet 40 mg PO QAM RF: 0 Liver Support Supplement 1 cap PO BID RF: 0 Vitamin B-12 1 tab PO DAILY RF: 0 Vitamin D3 1 cap PO DAILY RF: 0 hawthorn franklin 1 cap PO DAILY RF: 0 vitamin A 1 cap PO DAILY RF: 0 Carafate 100 mg/mL suspension 1 g PO TID Qty: 400 RF: 0 Zofran 4 mg tablet 4 mg PO Q8H PRN (Reason: nausea and vomiting) Qty: 20 RF: 0 Discharge Orders: Discharge ED (Routine); Ordered 02/19/21 Ordered By: Igor Diaz Referrals: Chloé Mars MD [Primary Care Provider] - Discharge Diet: As Directed Discharge Activity: Increase activity as tolerated Patient Instructions: Opioid Safety Activity Restrictions/Additional Instructions: Management will call to get you set up for an EGD with surgery. 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
[2021-02-19] MEDS: ondansetron 2 mg/ML SDV 2 mL 4 MG IVP (11:33)
[2021-02-19 11:34] VITALS: RESP 25
[2021-02-19] MEDS: morphine 4 mg/mL SDV 1 mL IVP (11:34)
[2021-02-19 11:37] LABS: Basophils # 0.1 10^3/uL (0.0-0.1); Basophils % 0.7 %; Eosinophils % 0.4 %; Hemoglobin 16.7 g/dL (11.7-16.6); Lymphocytes # 2.3 10^3/uL (0.8-4.8); Lymphocytes % 20.2 %; Mean Corpuscular HGB Conc 34.8 g/dL (30.0-36.0); Mean Corpuscular Hemoglobin 31.6 pg (28.0-34.0); Mean Corpuscular Volume 90.7 fL (80-94); Mean Platelet Volume 9.7 fL (7.4-10.4); Monocytes # 0.7 10^3/uL (0.2-0.9); Monocytes % 6.4 %; Neutrophils # 8.02 10^3/uL (1.8-7.7); Nucleated Red Blood Cells % 0 %; Platelet Count 267 10^3/cmm (130-400); Red Blood Count 5.29 10^6/uL (4.1-5.3); Red Cell Distribution Width 12.8 % (12.1-15.1); White Blood Count 11.1 10^3/uL (4.0-10.0)
[2021-02-19 12:07] LABS: Alanine Aminotransferase 70 U/L (0-41); Albumin Level 4.6 g/dL (3.5-5.2); Alkaline Phosphatase 106 IU/L (40-130); Ammonia 20 umol/L (16-60); Anion Gap 20.6 (5-19); Aspartate Amino Transferase 49 U/L (0-40); Blood Urea Nitrogen 10 mg/dL (6-20); Carbon Dioxide 24 mmol/L (22-29); Chloride 97 mmol/L (98-107); Globulin 3.5 g/dL (1.3-4.6); Glomerular Filtration Rate 99.1 mL/min (90-130); Glucose 97 mg/dL (65-115); Lipase 20 U/L (13-60); Osmolality Calculated 285 mOsm/kg (285-295); Potassium 3.6 mmol/L (3.5-5.1); Sodium 138 mmol/L (136-145); Total Bilirubin 0.4 mg/dL (0.15-1.2); Total Protein 8.1 g/dL (6.6-8.7)
[2021-02-19 12:20] LABS: Partial Thromboplastin Time 29.5 SECONDS (23.9-36.7)
[2021-02-19] MEDS: iohexol 300 mg/mL 100 mL Btl IV (12:33)
--- NOTE | 2021-02-19 13:08 | PC.NURSE ---
Pt crying out expletives saying that he is uncomfortable and anxious. Dr. Diaz at bedside.
[2021-02-19] MEDS: LORazepam 2 mg Tablet PO (13:29)
[2021-02-19 13:31] VITALS: BP 150/91; PULSE 108; RESP 16; O2SAT 98
== END 2021-02-19 13:32 | disposition home or self-care (01) ==
PROVIDERS: Emergency Provider Family Medicine; PCP Family Medicine
DX: K26.9 Duodenal ulcer, unspecified as acute or chronic, without hemorrhage or perforation (principal)
CPT/HCPCS: 74177; 76705; 80053; 82140; 83690; 85025; 85610; 85730; 96374; 96375; 99283; J2270; J2405; Q9967

== ENCOUNTER → 2021-03-30 13:33 | Outpatient (BNVA) | payer MEDICAID, SELFPAY | PROVIDERS: PCP Family Medicine; Visit Provider Psychiatry & Neurology Psychiatry | DX: F41.1 Generalized anxiety disorder (principal); F41.0 Panic disorder [episodic paroxysmal anxiety]; F10.10 Alcohol abuse, uncomplicated | CPT/HCPCS: 99214 ==

== ENCOUNTER → 2021-06-21 13:18 | Outpatient (BNVA) | payer OTHER, SELFPAY | PROVIDERS: PCP Family Medicine; Visit Provider Psychiatry & Neurology Psychiatry | DX: F41.1 Generalized anxiety disorder (principal); F41.0 Panic disorder [episodic paroxysmal anxiety]; Z79.899 Other long term (current) drug therapy; Z03.89 Encounter for observation for other suspected diseases and conditions ruled out; F10.10 Alcohol abuse, uncomplicated | CPT/HCPCS: 80053; 80061; 83036; 84443; 85025; 99214 ==

== ENCOUNTER 2021-10-11 12:24 | Emergency (ER) | payer MEDICAID, SELFPAY ==
[2021-10-11 13:03] VITALS: BP 146/94; PULSE 141; RESP 20; TEMP 36.1; O2SAT 96; BMI 33.1
--- NOTE | 2021-10-11 14:06 | W.ED.ABDPA2 ---
Documented by User: ESTEFANIA Gerard 10/12/21 07:03 HPI - Abdominal Pain General: Chief Complaint: Abdominal Pain Stated Complaint: not slept in three days ABD Pain Extremely bad Time Seen by Provider: 10/11/21 14:05 History of Present Illness: HPI narrative: Patient complains of abdominal pain. Said he fell off the wagon other day took a drink and then his stomach's been hurting since then. Said he also has alcoholic hepatitis. Has had some diarrhea. Said it hurts in his abdomen when he stands up but when he is laying down it did not hurt much at all. He says pain is started on the right upper side, radiates over to the left. Denies fever or chills. Did have some diaphoresis in the waiting room. Patient states he not been able to sleep well. MD elicited complaint: abdominal pain Pertinent past history: gastritis and other (Alcoholic hepatitis and gastric reflux and alcoholism) Onset (ago): day(s) Pain Consistency: constant Location: Epigastric, LUQ and RUQ Severity: moderate Quality: aching and fullness Radiation: LUQ Exacerbating factors: movement Relieving factors: rest Context: history of similar episodes and other (Alcohol) Associated Symptoms: Reports diarrhea; Denies chills and fever(s) Review of Systems Const: Denies: fever(s), chills or body aches Eyes: Denies: change in vision or blurry vision ENMT: Denies: throat pain or nasal congestion Card: Denies: chest pain or dyspnea on exertion Resp: Denies: dyspnea, productive cough or non-productive cough GI: Reports: abdominal pain and diarrhea : Denies: difficulty urinating Musc: Denies: extremity pain Skin/Breast: Denies: rash Neuro: Denies: headache(s) Psych: Denies: anxiety or depression Kris/Lymph: Denies: easy bruising PFSH ED PFSH: Medical History (Updated 10/11/21 @ 15:53 by ESTEFANIA Gerard) Acute posttraumatic stress disorder Alcohol abuse Anxiety and depression Elevated cholesterol/high density lipoprotein ratio Generalized anxiety disorder with panic attacks GERD (gastroesophageal reflux disease) Hypertension Insomnia Psychiatric care Social History Alcohol intake: current Alcohol intake frequency: 0-2 Drinks per Day Marital status: Number of children: 5 Current occupational status: employed Current gender identity: Male Physical Exam Const: COMMON NORMALS: no acute distress, average body habitus and patient oriented x3 HENMT: COMMON NORMALS: normocephalic HEAD & SCALP: normal to inspection and normocephalic FACE & SINUS: normal facial exam Eye: COMMON NORMALS: conjunctivae normal GENERAL EYE: appearance normal, both eyes and all related structures CONJUNCTIVA: Yes conjunctivae normal Neck/C-Spine: COMMON NORMALS: no JVD Chest: COMMONS NORMALS: normal inspection of the chest Resp: COMMON NORMALS: normal respiratory effort and clear to auscultation bilaterally AUSCULTATION: clear to auscultation bilaterally Cardio: COMMON NORMALS: no JVD and regular rhythm RATE: tachycardic RHYTHM: regular rhythm GI: AUSCULTATION: Yes normoactive bowel sounds PALPATION: Yes Tenderness to palpation present (GI) Details: LUQ, RUQ and other (Epigastric area) Extremity: COMMON NORMALS: normal to inspection and full ROM Neuro: COMMON NORMALS: patient oriented x3 Course Vital Signs: Vital signs: Vital Signs Temperature 96.9 F L 10/11/21 13:03 Pulse Rate 83 10/11/21 17:32 Respiratory Rate 18 10/11/21 17:32 Blood Pressure 158/90 10/11/21 17:32 Pulse Oximetry 98 10/11/21 17:32 MDM - Abdominal Pain MDM Narrative: Medical decision making narrative: Patient presents here with abdominal pain. Pain worsen when standing. Patient drink alcohol over New Year's and this is first time he drinking well. Started having abdominal pain after that. Laboratory studies today support increased anion gap and lipase. Patient given 2 L of fluid pain control. Care patient was discussed with Dr. Diaz. Patient abstain from alcohol follow-up primary care provider if worsening symptoms or return here. Lab Data: Labs: Lab Results 10/11/21 10/11/21 10/11/21 13:55 13:55 14:36 WBC 9.6 10^3/uL 10^3/ uL (4.0-10.0) RBC 5.47 10^6/uL H 10 ^6/uL (4.1-5.3) Hgb 17.4 g/dL H g/dL (11.7-16.6) Hct 50.1 % % (42.0-52.0) MCV 91.6 fl fl (80-94) MCH 31.8 pg pg (28.0-34.0) MCHC 34.7 g/dL g/dL (30.0-36.0) RDW 12.3 % % (12.1-15.1) Plt Count 207 10^3/cmm 10^3 /cmm (130-400) MPV 9.4 fL fL (7.4-10.4) Neut % (Auto) 68.9 % % Lymph % (Auto) 23.0 % % Ector % (Auto) 7.1 % % Eos % (Auto) 0.3 % % Baso % (Auto) 0.4 % % Neut # (Auto) 6.60 10^3/uL 10^3 /uL (1.8-7.7) Lymph # (Auto) 2.2 10^3/uL 10^3/ uL (0.8-4.8) Ector # (Auto) 0.7 10^3/uL 10^3/ uL (0.2-0.9) Eos # (Auto) 0.0 10^3/uL 10^3/ uL (0.0-0.8) Baso # (Auto) 0.0 10^3/uL 10^3/ uL (0.0-0.1) Nucleated RBC % (a uto) 0 % % Nucleated RBCs # 0.0 /100WBC /100W BC Sodium 134 mmol/L L mmol /L (136-145) Potassium 3.7 mmol/L mmol/L (3.5-5.1) Chloride 93 mmol/L L mmol/ L (98-107) Carbon Dioxide 16 mmol/L L mmol/ L (22-29) Anion Gap 28.7 H (5-19) BUN 11 mg/dL mg/dL (6-20) Creatinine 1.0 mg/dL mg/dL (0.7-1.2) GFR Calculation 87.2 mL/min L mL/ min (90-130) Glucose 87 mg/dL mg/dL (65-115) Calculated Osmolal ity 277 mOsm/kg L mOs m/kg (285-295) Calcium 8.8 mg/dL mg/dL (8.5-10.5) Total Bilirubin 1.4 mg/dL H mg/dL (0.15-1.2) AST 57 U/L H U/L (0-40) ALT 72 U/L H U/L (0-41) Alkaline Phosphata se 92 IU/L IU/L (40-130) Total Protein 7.9 g/dL g/dL (6.6-8.7) Albumin 4.6 g/dL g/dL (3.5-5.2) Globulin 3.3 g/dL g/dL (1.3-4.6) Lipase 481 U/L H U/L (13-60) Urine Color Yellow (Yellow) Urine Appearance Clear (CLEAR) Urine pH 5 (5-7) Ur Specific Gravit y 1.020 (1.005-1.030) Urine Protein Neg (Negative) Urine Glucose (UA) Norm (Normal) Urine Ketones 3+ H (Negative) Urine Blood Neg (Negative) Urine Nitrate Negative (Negative) Urine Bilirubin 1+ H (Negative) Urine Urobilinogen Norm mg/dL mg/dL (Negative) Ur Leukocyte Jeniffer ase Negative (Negative) EKG Data ^: EKG 1: EKG interpretation date: 10/11/21 EKG interpretation time: 15:03 Computer generated interpretation: Sinus rhythm ventricular rate 94 bpm SC interval 176 ms QRS duration 75 ms QT is 305 ms Discharge Plan Discharge Patient Disposition: Home Clinical Impression: Pancreatitis Qualifiers: Chronicity: chronic Pancreatitis type: alcohol induced Qualified Code(s): K86.0 - Alcohol-induced chronic pancreatitis Condition: Stable Prescriptions: New hydrocodone-acetaminophen 5-325 mg tablet 1 tab PO TID PRN (Reason: pain) Qty: 14 RF: 0 No Action Carafate 100 mg/mL suspension 1 g PO TID RF: 0 Zofran 8 mg tablet 8 mg PO Q8H PRN (Reason: nausea and vomiting) 30 Days Qty: 60 RF: 0 omeprazole 40 mg capsule,delayed release(DR/EC) 40 mg PO DAILY PRN (Reason: acid reflux) RF: 0 zolpidem [Ambien] 5 mg tablet 5 mg PO .hs PRN (Reason: insomnia) Qty: 30 RF: 1 sertraline 100 mg tablet 150 mg PO DAILY Qty: 45 RF: 5 lisinopril 40 mg Tablet 40 mg PO QAM RF: 0 Vitamin B-12 1 tab PO DAILY RF: 0 Vitamin D3 1 cap PO DAILY RF: 0 vitamin A 1 cap PO DAILY RF: 0 metoprolol succinate 100 mg tablet extended release 24 hr 50 mg PO DAILY RF: 0 Discharge Orders: Discharge ED (Routine); Ordered 10/11/21 Ordered By: Jay Sims Discharge Diet: Advance as tolerated Discharge Activity: Increase activity as tolerated Patient Instructions: Pancreatitis (ED) Activity Restrictions/Additional Instructions: Follow-up with medical provider as directed. Take medications as prescribed. Return to the ER or your medical provider if condition worsens. Please read and understand discharge instructions. If any questions ask please. Do not drink any alcohol. Coding Level of Care Code ED Javascript Programmer for Chg Fwd Exam Comprehensive Documented by User: Igor Diaz DO 10/14/21 08:50 HPI - Abdominal Pain General: Chief Complaint: Abdominal Pain Stated Complaint: not slept in three days ABD Pain Extremely bad Time Seen by Provider: 10/11/21 14:05 [facility] ED PFSH: Medical History (Updated 10/11/21 @ 15:53 by ESTEFANIA Gerard) Acute posttraumatic stress disorder Alcohol abuse Anxiety and depression Elevated cholesterol/high density lipoprotein ratio Generalized anxiety disorder with panic attacks GERD (gastroesophageal reflux disease) Hypertension Insomnia Psychiatric care Social History Alcohol intake: current Alcohol intake frequency: 0-2 Drinks per Day Marital status: Number of children: 5 Current occupational status: employed Current gender identity: Male Course Vital Signs: Vital signs: Vital Signs Temperature 96.9 F L 10/11/21 13:03 Pulse Rate 83 10/11/21 17:32 Respiratory Rate 18 10/11/21 17:32 Blood Pressure 158/90 10/11/21 17:32 Pulse Oximetry 98 10/11/21 17:32 MDM - Abdominal Pain MDM Narrative: Medical decision making narrative: Chart reviewed and patient discussed with midlevel. Agree with assessment and plan. Lab Data: Labs: Lab Results 10/11/21 10/11/21 10/11/21 13:55 13:55 14:36 WBC 9.6 10^3/uL 10^3/ uL (4.0-10.0) RBC 5.47 10^6/uL H 10 ^6/uL (4.1-5.3) Hgb 17.4 g/dL H g/dL (11.7-16.6) Hct 50.1 % % (42.0-52.0) MCV 91.6 fl fl (80-94) MCH 31.8 pg pg (28.0-34.0) MCHC 34.7 g/dL g/dL (30.0-36.0) RDW 12.3 % % (12.1-15.1) Plt Count 207 10^3/cmm 10^3 /cmm (130-400) MPV 9.4 fL fL (7.4-10.4) Neut % (Auto) 68.9 % % Lymph % (Auto) 23.0 % % Ector % (Auto) 7.1 % % Eos % (Auto) 0.3 % % Baso % (Auto) 0.4 % % Neut # (Auto) 6.60 10^3/uL 10^3 /uL (1.8-7.7) Lymph # (Auto) 2.2 10^3/uL 10^3/ uL (0.8-4.8) Ector # (Auto) 0.7 10^3/uL 10^3/ uL (0.2-0.9) Eos # (Auto) 0.0 10^3/uL 10^3/ uL (0.0-0.8) Baso # (Auto) 0.0 10^3/uL 10^3/ uL (0.0-0.1) Nucleated RBC % (a uto) 0 % % Nucleated RBCs # 0.0 /100WBC /100W BC Sodium 134 mmol/L L mmol /L (136-145) Potassium 3.7 mmol/L mmol/L (3.5-5.1) Chloride 93 mmol/L L mmol/ L (98-107) Carbon Dioxide 16 mmol/L L mmol/ L (22-29) Anion Gap 28.7 H (5-19) BUN 11 mg/dL mg/dL (6-20) Creatinine 1.0 mg/dL mg/dL (0.7-1.2) GFR Calculation 87.2 mL/min L mL/ min (90-130) Glucose 87 mg/dL mg/dL (65-115) Calculated Osmolal ity 277 mOsm/kg L mOs m/kg (285-295) Calcium 8.8 mg/dL mg/dL (8.5-10.5) Total Bilirubin 1.4 mg/dL H mg/dL (0.15-1.2) AST 57 U/L H U/L (0-40) ALT 72 U/L H U/L (0-41) Alkaline Phosphata se 92 IU/L IU/L (40-130) Total Protein 7.9 g/dL g/dL (6.6-8.7) Albumin 4.6 g/dL g/dL (3.5-5.2) Globulin 3.3 g/dL g/dL (1.3-4.6) Lipase 481 U/L H U/L (13-60) Urine Color Yellow (Yellow) Urine Appearance Clear (CLEAR) Urine pH 5 (5-7) Ur Specific Gravit y 1.020 (1.005-1.030) Urine Protein Neg (Negative) Urine Glucose (UA) Norm (Normal) Urine Ketones 3+ H (Negative) Urine Blood Neg (Negative) Urine Nitrate Negative (Negative) Urine Bilirubin 1+ H (Negative) Urine Urobilinogen Norm mg/dL mg/dL (Negative) Ur Leukocyte Jeniffer ase Negative (Negative) Discharge Plan Discharge Patient Disposition: Home Clinical Impression: Pancreatitis Qualifiers: Chronicity: chronic Pancreatitis type: alcohol induced Qualified Code(s): K86.0 - Alcohol-induced chronic pancreatitis Condition: Stable Prescriptions: New hydrocodone-acetaminophen 5-325 mg tablet 1 tab PO TID PRN (Reason: pain) Qty: 14 RF: 0 No Action Carafate 100 mg/mL suspension 1 g PO TID RF: 0 Zofran 8 mg tablet 8 mg PO Q8H PRN (Reason: nausea and vomiting) 30 Days Qty: 60 RF: 0 omeprazole 40 mg capsule,delayed release(DR/EC) 40 mg PO DAILY PRN (Reason: acid reflux) RF: 0 zolpidem [Ambien] 5 mg tablet 5 mg PO .hs PRN (Reason: insomnia) Qty: 30 RF: 1 sertraline 100 mg tablet 150 mg PO DAILY Qty: 45 RF: 5 lisinopril 40 mg Tablet 40 mg PO QAM RF: 0 Vitamin B-12 1 tab PO DAILY RF: 0 Vitamin D3 1 cap PO DAILY RF: 0 vitamin A 1 cap PO DAILY RF: 0 metoprolol succinate 100 mg tablet extended release 24 hr 50 mg PO DAILY RF: 0 Discharge Orders: Discharge ED (Routine); Ordered 10/11/21 Ordered By: Jay Sims Discharge Diet: Advance as tolerated Discharge Activity: Increase activity as tolerated Patient Instructions: Pancreatitis (ED) Activity Restrictions/Additional Instructions: Follow-up with medical provider as directed. Take medications as prescribed. Return to the ER or your medical provider if condition worsens. Please read and understand discharge instructions. If any questions ask please. Do not drink any alcohol. Coding Level of Care Code ED Javascript Programmer for Al Fwd Exam Comprehensive
--- NOTE | 2021-10-11 14:08 | ECG_ITS ---
[facility] Test Date: 2021-10-11 Pat Name: Buddy Cowan Department: Room: Gender: Male Medical Economics Consultant: : 1990 Requested By: Jay Sims Order Number: [id number] Thomas MD: Saundra Martinez M.D. Measurements Intervals [place] Rate: 128 P: 83 VA: 155 QRS: 78 QRSD: 76 T: 78 QT: 276 QTc: 403 Interpretive Statements SINUS TACHYCARDIA NONSPECIFIC ST & T-WAVE ABNORMALITY ABNORMAL RHYTHM ECG Compared to ECG 01/30/2021 19:41:34 Sinus rhythm no longer present T-wave abnormality still present Electronically Signed On 10-11-2021 20:53:06 PAINT PROCESS ENGINEER by Saundra Martinez M.D. [id number]
[2021-10-11 14:14] LABS: Basophils % 0.4 %; Eosinophils % 0.3 %; Hematocrit 50.1 % (42.0-52.0); Hemoglobin 17.4 g/dL (11.7-16.6); Lymphocytes # 2.2 10^3/uL (0.8-4.8); Mean Corpuscular HGB Conc 34.7 g/dL (30.0-36.0); Mean Corpuscular Hemoglobin 31.8 pg (28.0-34.0); Mean Corpuscular Volume 91.6 fl (80-94); Mean Platelet Volume 9.4 fL (7.4-10.4); Monocytes # 0.7 10^3/uL (0.2-0.9); Monocytes % 7.1 %; Neutrophils % 68.9 %; Nucleated Red Blood Cells % 0 %; Platelet Count 207 10^3/cmm (130-400); Red Blood Count 5.47 10^6/uL (4.1-5.3); Red Cell Distribution Width 12.3 % (12.1-15.1); White Blood Count 9.6 10^3/uL (4.0-10.0)
[2021-10-11 14:33] LABS: Alanine Aminotransferase 72 U/L (0-41); Albumin Level 4.6 g/dL (3.5-5.2); Alkaline Phosphatase 92 IU/L (40-130); Anion Gap 28.7 (5-19); Aspartate Amino Transferase 57 U/L (0-40); Blood Urea Nitrogen 11 mg/dL (6-20); Calcium 8.8 mg/dL (8.5-10.5); Carbon Dioxide 16 mmol/L (22-29); Chloride 93 mmol/L (98-107); Globulin 3.3 g/dL (1.3-4.6); Glomerular Filtration Rate 87.2 mL/min (90-130); Glucose 87 mg/dL (65-115); Osmolality Calculated 277 mOsm/kg (285-295); Potassium 3.7 mmol/L (3.5-5.1); Sodium 134 mmol/L (136-145); Total Bilirubin 1.4 mg/dL (0.15-1.2); Total Protein 7.9 g/dL (6.6-8.7)
[2021-10-11 14:45] LABS: Lipase 481 U/L (13-60)
[2021-10-11 14:46] VITALS: BP 148/100; PULSE 102; RESP 18; O2SAT 98
[2021-10-11] MEDS: sodium chloride 0.9% 1,000 ML 999 ML IV ×2 (14:46→15:36)
[2021-10-11 14:55] LABS: Add Urine Microscopic? NO; Charge for UA Resulting for Rev
[2021-10-11 14:59] LABS: Bilirubin Urine 1+ (Negative); Blood Urine Neg (Negative); Glucose Urine UA Norm (Normal); Ketones Urine 3+ (Negative); Leukocyte Esterase Urine Negative (Negative); Nitrate Urine Negative (Negative); Protein Urine Neg (Negative); Urine Appearance Clear (CLEAR); Urine Color Yellow (Yellow); Urobilinogen Urine Norm (Negative); pH Urine 5 (5-7)
[2021-10-11 15:08] VITALS: BP 152/104; BP 166/114; BP 182/110; PULSE 114; PULSE 125; PULSE 127
[2021-10-11 16:42] VITALS: RESP 16
[2021-10-11] MEDS: morphine 4 mg/mL SDV 1 mL IVP (16:42)
[2021-10-11] MEDS: ondansetron 2 mg/ML SDV 2 mL 4 MG IVP (16:42)
[2021-10-11 17:30] VITALS: BP 158/90; PULSE 83; RESP 18; O2SAT 98
[2021-10-11 17:32] VITALS: BP 158/90; PULSE 83; RESP 18; O2SAT 98
== END 2021-10-11 17:34 | disposition home or self-care (01) ==
PROVIDERS: Emergency Provider Nurse Practitioner Family
DX: K86.0 Alcohol-induced chronic pancreatitis (principal); I10 Essential (primary) hypertension
CPT/HCPCS: 80053; 81003; 83690; 85025; 93005; 96361; 96374; 96375; 99284; J2270; J2405; J7030

== ENCOUNTER → 2021-10-15 11:41 | Outpatient (BNVA) | payer MEDICAID, SELFPAY | PROVIDERS: Visit Provider Family Medicine Adult Medicine | DX: E78.5 Hyperlipidemia, unspecified (principal); K86.0 Alcohol-induced chronic pancreatitis | CPT/HCPCS: 80061; 83690; 85025 ==

== ENCOUNTER 2021-12-23 21:10 | Emergency (ER) | payer MEDICAID, SELFPAY ==
[2021-12-23 21:23] VITALS: BP 130/84; PULSE 122; RESP 18; TEMP 37.1; O2SAT 94; BMI 32.5
[2021-12-23 22:13] LABS: Basophils # 0.1 10^3/uL (0.0-0.1); Basophils % 0.9 %; Eosinophils % 0.3 %; Hematocrit 43.1 % (42.0-52.0); Hemoglobin 14.7 g/dL (11.7-16.6); Lymphocytes # 2.9 10^3/uL (0.8-4.8); Lymphocytes % 41.8 %; Mean Corpuscular HGB Conc 34.1 g/dL (30.0-36.0); Mean Corpuscular Volume 93.7 fl (80-94); Mean Platelet Volume 9.7 fL (7.4-10.4); Monocytes # 0.7 10^3/uL (0.2-0.9); Monocytes % 9.5 %; Neutrophils # 3.24 10^3/uL (1.8-7.7); Neutrophils % 47.4 %; Nucleated Red Blood Cells % 0 %; Platelet Count 333 10^3/cmm (130-400); White Blood Count 6.8 10^3/uL (4.0-10.0)
--- NOTE | 2021-12-23 22:13 | W.ED.GENADLT ---
HPI - General Adult General: Chief complaint: Abdominal Pain Stated complaint: abdominal issues Time Seen by Provider: 12/23/21 21:51 History of Present Illness: Patient is a 31-year-old male with history of chronic pancreatitis presenting to the emergency room with 3 days of midepigastric dull pain, nausea vomiting. Patient states that pain started 3 days ago has now intensified. Since then, patient has not been able to tolerate p.o. Patient denies any diarrhea, melena hematochezia. Patient reports mild hematuria after taking ibuprofen. Patient reports that he has had a bout of pancreatitis 6 weeks ago. Patient has any fever or chills, is concerned that he may have an infection since my breath smells bad from the vomiting. Patient has no other complaints. Patient denies any recent significant alcohol use. Patient denies any marijuana use. Patient denies any chest pain, shortness breath, palpitation, lightheadedness, focal neurological weakness, rash, or any other complaint Onset: 3 days ago Duration:3 days Location:home Severity:moderate Associated symptoms: Reports nausea and vomiting; Deny chest pain, dyspnea, rash or palpitations Review of Systems Const: Denies: fever(s) or chills Eyes: Denies: change in vision ENMT: Denies: mouth pain Card: Denies: chest pain or palpitations Resp: Denies: dyspnea or non-productive cough GI: Reports: abdominal pain, nausea and vomiting; Denies: diarrhea : Denies: dysuria Musc: Denies: extremity pain Skin/Breast: Denies: rash or new lesions Neuro: Denies: weakness in extremities Psych: Reports: other (Normal mood) Kris/Lymph: Denies: easy bruising PFS ED PFSH: Medical History Acute pancreatitis Acute posttraumatic stress disorder Alcohol abuse Anxiety and depression Generalized anxiety disorder with panic attacks GERD (gastroesophageal reflux disease) Hyperlipidemia Hypertension Insomnia Psychiatric care Social History Alcohol intake: current Alcohol intake frequency: 0-2 Drinks per Day Marital status: Number of children: 5 Current occupational status: employed Current gender identity: Male Physical Exam Const: COMMON NORMALS: alert HENMT: COMMON NORMALS: atraumatic HEAD & SCALP: atraumatic MOUTH: moist mucous membranes not abnormal Eye: COMMON NORMALS: EOMs intact bilaterally and conjunctivae normal CONJUNCTIVA: Yes conjunctivae normal Neck/C-Spine: COMMON NORMALS: full ROM and supple Resp: COMMON NORMALS: normal respiratory effort and clear to auscultation bilaterally AUSCULTATION: clear to auscultation bilaterally Cardio: COMMON NORMALS: regular rate RATE: regular rate GI: COMMON NORMALS: Soft to palpation PALPATION: Yes Soft to palpation OTHER: +moderate mid-epigastric focal TTP. NO guarding rebound, guarding, rigidity. No CVA tenderness to percussion. Neg Sandoval/Neg McBurney's point tenderness, no suprabupic tenderness to palpation. Extremity: COMMON NORMALS: full ROM Neuro: SENSORIUM/ORIENTATION: Yes alert MOTOR EXAM: No Abnormal motor strength present and Other motor observations present (no focal motor deficits) Psych: COMMON NORMALS: speech normal SPEECH: Yes normal speech MOOD & AFFECT: Yes euthymic mood Course Vital Signs: Vital signs: Vital Signs Temperature 98.8 F 12/23/21 21:23 Pulse Rate 122 H 12/23/21 21:23 Respiratory Rate 18 12/23/21 21:23 Blood Pressure 130/84 12/23/21 21:23 Pulse Oximetry 94 12/23/21 21:23 MDM - General Adult Medical Decision Making 31-year-old male with history of chronic alcohol use, pancreatitis presenting to the emergency room with complaints of midepigastric dull pain with nausea vomiting x3 days. On exam, patient is afebrile, hemodynamically stable, patient has moderate tenderness palpation over the mid epigastric area. No guarding or rebound tenderness. Work-up:, CBC, CMP, lipase, UA Intervention: IVF, Zofran, Pepcid, morphine Case signed out to Dr. Baez pending work-up at this time. Lab Data : 12/23/21 22:00 12/23/21 22:00 Laboratory Results WBC 6.8 10^3/uL (4.0-10.0) 12/23/21 22:00 RBC 4.60 10^6/uL (4.1-5.3) 12/23/21 22:00 Hgb 14.7 g/dL (11.7-16.6) 12/23/21 22:00 Hct 43.1 % (42.0-52.0) 12/23/21 22:00 MCV 93.7 fl (80-94) 12/23/21 22:00 MCH 32.0 pg (28.0-34.0) 12/23/21 22:00 MCHC 34.1 g/dL (30.0-36.0) 12/23/21 22:00 RDW 13.0 % (12.1-15.1) 12/23/21 22:00 Plt Count 333 10^3/cmm (130-400) 12/23/21 22:00 MPV 9.7 fL (7.4-10.4) 12/23/21 22:00 Neut % (Auto) 47.4 % 12/23/21 22:00 Lymph % (Auto) 41.8 % 12/23/21 22:00 [place] % (Auto) 9.5 % 12/23/21 22:00 Eos % (Auto) 0.3 % 12/23/21 22:00 Baso % (Auto) 0.9 % 12/23/21 22:00 Neut # (Auto) 3.24 10^3/uL (1.8-7.7) 12/23/21 22:00 Lymph # (Auto) 2.9 10^3/uL (0.8-4.8) 12/23/21 22:00 [place] # (Auto) 0.7 10^3/uL (0.2-0.9) 12/23/21 22:00 Eos # (Auto) 0.0 10^3/uL (0.0-0.8) 12/23/21 22:00 Baso # (Auto) 0.1 10^3/uL (0.0-0.1) 12/23/21 22:00 Nucleated RBC % (auto) 0 % 12/23/21 22:00 Nucleated RBCs # 0.0 /100WBC 12/23/21 22:00 Discharge Plan Discharge Clinical Impression: Abdominal pain, Nausea & vomiting Condition: Stable Prescriptions: No Action Zofran 8 mg tablet 8 mg PO Q8H PRN (Reason: nausea and vomiting) 30 Days Qty: 60 0RF sertraline 100 mg tablet 150 mg PO DAILY Qty: 45 5RF Carafate 100 mg/mL suspension 1 g PO TID Qty: 420 3RF omeprazole 40 mg capsule,delayed release(DR/EC) 40 mg PO DAILY PRN (Reason: acid reflux) Qty: 30 3RF levofloxacin 750 mg tablet 750 mg PO DAILY Qty: 10 0RF zolpidem [Ambien] 5 mg tablet 5 mg PO .hs PRN (Reason: insomnia) Qty: 30 2RF atorvastatin 40 mg tablet 40 mg PO DAILY Qty: 30 5RF lisinopril 40 mg Tablet 40 mg PO QAM 0RF Vitamin B-12 1 tab PO DAILY 0RF Vitamin D3 1 cap PO DAILY 0RF metoprolol succinate 100 mg tablet extended release 24 hr 50 mg PO DAILY 0RF Rx Instructions: pt takes 1/2 tablet every other day. hydrocodone-acetaminophen 5-325 mg tablet 1 tab PO TID PRN (Reason: pain) Qty: 14 0RF Patient Instructions: Abdominal Pain (ED) Coding Level of Care Code ED Credit Associate for lA Duran
[2021-12-23] MEDS: famotidine 20 mg/2 mL INJ IVP (22:14)
[2021-12-23] MEDS: sodium chloride 0.9% 1,000 ML 999 ML IV (22:14)
[2021-12-23 22:20] VITALS: BP 145/93; PULSE 106; RESP 20; O2SAT 96
[2021-12-23 22:34] LABS: Alanine Aminotransferase 67 U/L (0-41); Albumin Level 4.4 g/dL (3.5-5.2); Alkaline Phosphatase 105 IU/L (40-130); Aspartate Amino Transferase 56 U/L (0-40); Blood Urea Nitrogen 11 mg/dL (6-20); Calcium 8.9 mg/dL (8.5-10.5); Carbon Dioxide 24 mmol/L (22-29); Chloride 95 mmol/L (98-107); Globulin 2.6 g/dL (1.3-4.6); Glomerular Filtration Rate 112.8 mL/min (90-130); Glucose 132 mg/dL (65-115); Lipase 39 U/L (13-60); Osmolality Calculated 279 mOsm/kg (285-295); Sodium 134 mmol/L (136-145); Total Bilirubin 0.4 mg/dL (0.15-1.2)
--- NOTE | 2021-12-23 22:37 | CTR_ITS ---
PROCEDURE INFORMATION: Exam: CT Abdomen And Pelvis With Contrast Exam date and time: 12/23/2021 10:53 PM Age: 31 years old Clinical indication: Nausea and vomiting; Abdominal pain; Generalized; Patient HX: C/O abd pain with n/v for the last few days. History of pancreatitis. ; Additional info: Eval for pathologies TECHNIQUE: Imaging protocol: Computed tomography of the abdomen and pelvis with contrast. Radiation optimization: All CT scans at this facility use at least one of these dose optimization techniques: automated exposure control; mA and/or kV adjustment per patient size (includes targeted exams where dose is matched to clinical indication); or iterative reconstruction. Contrast material: OMNI 300; Contrast volume: 95 ml; Contrast route: INTRAVENOUS (IV); COMPARISON: CT abdomen pelvis w con* [id number] 02/19/2021 12:32 PM RADIATION DOSE METRICS: Total DLP (mGy-cm): 1821.95 FINDINGS: Liver: There is hypoattenuation of the hepatic parenchyma compatible with fatty infiltration. Gallbladder and bile ducts: Normal. No calcified stones. No ductal dilation. Pancreas: There is a mildly irregular mixed attenuation cystic appearing mass that appears to emanate from the pancreatic tail present that measures 2.1 cm transverse dimension by 2.6 cm AP dimension by 2.4 cm craniocaudal dimension (series 2: Image 31, series 602: Image 33 and series 601: Images 27 -30). The patient has a history of pancreatitis and this could represent a residual pancreatic cyst or pseudocyst. However, a cystic neoplasia of the pancreatic tail cannot be entirely excluded. Spleen: Normal. No splenomegaly. Adrenal glands: Normal. No mass. Kidneys and ureters: Normal. No hydronephrosis. Stomach and bowel: Nondilated small bowel loops are seen containing some fluid and a few air-fluid levels, findings that could represent mild ileus. Appendix: The appendix is visualized and is normal in configuration. Intraperitoneal space: Unremarkable. No free air. No significant fluid collection. Vasculature: Unremarkable. No abdominal aortic aneurysm. Lymph nodes: Unremarkable. No enlarged lymph nodes. Urinary bladder: Unremarkable as visualized. Reproductive: Unremarkable as visualized. Bones/joints: Unremarkable. No acute fracture. Soft tissues: Unremarkable. CT/CT abdomen pelvis w con* [id number] IMPRESSION: 1. Irregular cystic appearing mass seen in the pancreatic tail measuring up to 2.6 cm. This could represent a residual pancreatic cyst or pseudocyst in this patient with a history pancreatitis. However, a cystic neoplasm arising from the pancreatic tail cannot be entirely excluded. 2. Fatty infiltration of the liver 3. Nondilated fluid-filled small bowel loops could represent mild ileus.
[2021-12-23] MEDS: iohexol 300 mg/mL 100 mL Btl IV (22:51)
[2021-12-23] MEDS: ondansetron 2 mg/ML SDV 2 mL 4 MG IVP (23:57)
[2021-12-23 23:59] VITALS: RESP 20
[2021-12-23] MEDS: morphine 4 mg/mL SDV 1 mL IVP (23:59)
[2021-12-24 00:30] VITALS: BP 133/82; PULSE 88; RESP 20; O2SAT 98
[2021-12-24] MEDS: diphenhydrAMINE 50 mg/mL SDV 1mL 25 MG IVP (00:57)
[2021-12-24 01:00] VITALS: BP 135/85; PULSE 101; RESP 20; O2SAT 98
[2021-12-24] MEDS: metoclopramide 5 mg/mL SDV 2 mL 10 MG IVP (01:04)
[2021-12-24 01:30] VITALS: BP 111/74; PULSE 102; RESP 20; O2SAT 98
== END 2021-12-24 01:35 | disposition home or self-care (01) ==
PROVIDERS: Emergency Medicine; Emergency Provider Emergency Medicine
DX: R10.9 Unspecified abdominal pain (principal); R11.2 Nausea with vomiting, unspecified; E78.5 Hyperlipidemia, unspecified; I10 Essential (primary) hypertension
CPT/HCPCS: 74177; 80053; 83690; 85025; 96361; 96374; 96375; 99284; J1200; J2270; J2405; J2765; J3490; J7030; Q9967

== ENCOUNTER 2022-01-08 10:26 | Inpatient (IN) | payer MEDICAID, SELFPAY ==
[2022-01-08] VITALS (20 sets, daily range): BP systolic 150–173; BP diastolic 96–123; PULSE 85–122; RESP 17–25; TEMP 36.6–36.9; O2SAT 92–100; BMI 32.5
--- NOTE | 2022-01-08 10:54 | USR_ITS ---
PROCEDURE INFORMATION: Exam: US Abdomen, Limited; Right Upper Quadrant Exam date and time: 01/08/2022 11:18 AM Age: 31 years old Clinical indication: Abdominal pain; Additional info: Ruq pain TECHNIQUE: Imaging protocol: US abdomen. Real time ultrasound with image documentation. Limited exam focused on the right upper quadrant. COMPARISON: US gall bladder [id number] 02/19/2021 12:24 PM FINDINGS: Liver: Mild hepatomegaly. Echogenic, consistent with fatty infiltration. Gallbladder: Mildly distended. No gallstones. No gallbladder wall thickening or pericholecystic fluid. Positive sonographic Sandoval's sign, as per the swimming pool installer. This is a nonspecific finding. Common bile duct: No stones. No ductal dilatation. Pancreas: Unremarkable as visualized. Right kidney: No mass. No definite stones. No hydronephrosis. US/US gall bladder [id number] IMPRESSION: 1. No acute sonographic findings. 2. Additional findings, as above.
--- NOTE | 2022-01-08 10:55 | ED_ITS ---
Documented by User: ROBERTO Sarah 01/08/22 13:33 HPI - Abdominal Pain General: Chief Complaint: Abdominal Pain Stated Complaint: severe abominal pain Time Seen by Provider: 01/08/22 10:27 Source: patient Mode of arrival: ambulatory Limitations: no limitations History of Present Illness: Patient is a 31-year-old male who presents to ED today with a complaint of right upper abdominal pain. Patient tells me pain began yesterday fairly suddenly and states it has progressed in severity into today. Patient was seen at our facility approximately 2 weeks ago for similar s ymptoms. He states he felt very nauseous yesterday and had one episode of vomiting. He tells me he has had approximately 2-3 episodes of non-bloody non- bilious emesis today. Bowel movements have been normal. No fevers. No urinary complaints. He does endorse a previous history of pancreatitis that presented with pain to his left upper quadrant. He has known fatty liver disease. No previous abdominal surgeries. PMH significant for previous alcohol abuse, HTN, pancreatitis, hepatic steatosis. MD elicited complaint: abdominal pain Pertinent past history: none Onset (ago): day(s) (yesterday) Pain Consistency: constant Location: RUQ Severity: severe Radiation: none Migration to: no migration Exacerbating factors: nothing Relieving factors: nothing Associated Symptoms: Reports nausea and vomiting; Denies change in bowel habits, chills, diarrhea, dysuria, fever(s), hematochezia, hematuria and melena Review of Systems Const: Denies: fever(s), chills, body aches, fatigue or malaise Card: Denies: chest pain Resp: Denies: dyspnea GI: Reports: abdominal pain, nausea and vomiting; Denies: diarrhea, change in bowel habits, hematochezia or melena : Denies: flank pain, difficulty urinating, dysuria or hematuria Musc: Denies: neck pain, back pain, extremity pain or joint pain Skin/Breast: Denies: rash Neuro: Denies: headache(s), numbness in extremities, sensory changes or dizziness [facility] ED PFSH: Medical History Acute pancreatitis Acute posttraumatic stress disorder Alcohol abuse Anxiety and depression Generalized anxiety disorder with panic attacks GERD (gastroesophageal reflux disease) Hyperlipidemia Hypertension Insomnia Psychiatric care Surgical History (Updated 01/08/22 @ 15:02 by Troy Hopson MD) No pertinent past surgical history Family History (Updated 01/08/22 @ 15:01 by Troy Hopson MD) Father Hypertension Social History Alcohol intake: current Alcohol intake frequency: 0-2 Drinks per Day Marital status: Number of children: 5 Current occupational status: employed Current gender identity: Male Physical Exam Const: COMMON NORMALS: patient oriented x3, no limitations and alert GENERAL APPEARANCE: cooperative and in distress (uncomfortable secondary to pain) NUTRITIONAL APPEARANCE: overweight ORIENTATION/CONSCIOUSNESS: Yes awake, Yes oriented to person, Yes oriented to place and Yes oriented to time HENMT: COMMON NORMALS: normocephalic and atraumatic HEAD & SCALP: normocephalic and atraumatic Chest: COMMONS NORMALS: normal inspection of the chest and normal palpation of entire chest wall Resp: COMMON NORMALS: normal respiratory effort and clear to auscultation bilaterally AUSCULTATION: clear to auscultation bilaterally Cardio: COMMON NORMALS: regular rate and regular rhythm RATE: regular rate RHYTHM: regular rhythm GI: COMMON NORMALS: Normal to inspection, nondistended, normoactive bowel sounds present, Soft to palpation and no masses INSPECTION: Yes normal to inspection PALPATION: Yes Soft to palpation, Yes Tenderness to palpation present (GI) (throughout upper abdomen mainly), Yes Guarding due to palpation present (GI) and No Rigid due to palpation : COMMON NORMALS: Yes no CVA tenderness BLADDER/KIDNEY EXAM: Yes no CVA tenderness Back/Pelvis: COMMON NORMALS: no CVA tenderness, thoracic and lumbar spine normal to inspection, no thoracic nor lumbar tenderness and thoraco-lumbar ROM normal Extremity: COMMON NORMALS: normal to inspection GENERAL: Yes normal exam except as noted Neuro: DEJA COMA SCALE: document GCS findings [place] coma scale eye opening: Spontaneous [place] coma scale verbal response: Orientated [place] coma scale motor response: Obey commands [place] coma scale total score: 15 COMMON NORMALS: patient oriented x3, moves all extremities, no focal motor deficits and no sensory deficits noted SENSORIUM/ORIENTATION: Yes alert, Yes oriented to person, Yes oriented to place and Yes oriented to time Skin: COMMON NORMALS: no rashes or lesions noted GENERAL SKIN EXAM: no rashes or lesions noted Course Consultations: Consultation #1: Dr. Hopson-accepts admit Vital Signs: Vital signs: Vital Signs Temperature 98.6 F 01/11/22 19:59 Pulse Rate 93 01/11/22 19:59 Respiratory Rate 16 01/11/22 19:59 Blood Pressure 158/100 01/11/22 19:59 Pulse Oximetry 98 01/11/22 19:59 MDM - Abdominal Pain Medical Decision Making Patient has acute pancreatitis today with his lipase being 450 compared to in the 30s two weeks ago during his last visit. He has findings consistent with acute pancreatitis on CT imaging. He has no necrosis. He is an unchanged cystic lesion most likely a pseudocyst present. Lab work showing mild leukocytosis at 12.0. He does have an elevated lactate at 3.3. He was tachycardic upon arrival therefore I did go ahead and start him on IV fluids and antibiotics. He has chronic elevations to his LFTs that are not significantly changed. US gallbladder was normal. Patient has required repeat narcotic pain doses to adequately control his pain. He does not feel like his pain could be controlled at home therefore he will need to be admitted. I spoke to Dr. Baez who agrees with assessment and plan and will write admit orders. I spoke to Dr. Hopson who will accept patient. Lab Data : 01/11/22 05:01 01/11/22 05:01 Labs/Radiology: Radiology Impressions Gallbladder Ultrasound 01/08/22 10:54 IMPRESSION: 1. No acute sonographic findings. 2. Additional findings, as above. Abdomen/Pelvis CT 01/08/22 10:55 IMPRESSION: 1. Acute pancreatitis, as described above. Correlate with serum amylase and lipase levels. No necrosis or hemorrhage. 2. Unchanged complex cystic lesion along the posterosuperior margin of the pancreatic tail, measuring approximately 2 x 1.9 cm, possibly a pseudocyst. 3. Additional findings, as above. Laboratory Results WBC 12.0 10^3/uL (4.0-10.0) H 01/08/22 10:39 RBC 5.18 10^6/uL (4.1-5.3) 01/08/22 10:39 Hgb 16.7 g/dL (11.7-16.6) H 01/08/22 10:39 Hct 48.6 % (42.0-52.0) 01/08/22 10:39 MCV 93.8 fl (80-94) 01/08/22 10:39 MCH 32.2 pg (28.0-34.0) 01/08/22 10:39 MCHC 34.4 g/dL (30.0-36.0) 01/08/22 10:39 RDW 13.0 % (12.1-15.1) 01/08/22 10:39 Plt Count 213 10^3/cmm (130-400) 01/08/22 10:39 MPV 10.1 fL (7.4-10.4) 01/08/22 10:39 Neut % (Auto) 74.7 % 01/08/22 10:39 Lymph % (Auto) 17.2 % 01/08/22 10:39 [place] % (Auto) 7.4 % 01/08/22 10:39 Eos % (Auto) 0.1 % 01/08/22 10:39 Baso % (Auto) 0.3 % 01/08/22 10:39 Neut # (Auto) 8.94 10^3/uL (1.8-7.7) H 01/08/22 10:39 Lymph # (Auto) 2.1 10^3/uL (0.8-4.8) 01/08/22 10:39 [place] # (Auto) 0.9 10^3/uL (0.2-0.9) 01/08/22 10:39 Eos # (Auto) 0.0 10^3/uL (0.0-0.8) 01/08/22 10:39 Baso # (Auto) 0.0 10^3/uL (0.0-0.1) 01/08/22 10:39 Nucleated RBC % (auto) 0 % 01/08/22 10:39 Nucleated RBCs # 0.0 /100WBC 01/08/22 10:39 Sodium 135 mmol/L (136-145) L 01/08/22 10:39 Potassium 4.1 mmol/L (3.5-5.1) 01/08/22 10:39 Chloride 96 mmol/L (98-107) L 01/08/22 10:39 Carbon Dioxide 21 mmol/L (22-29) L 01/08/22 10:39 Anion Gap 22.1 (5-19) H 01/08/22 10:39 BUN 7 mg/dL (6-20) 01/08/22 10:39 Creatinine 0.9 mg/dL (0.7-1.2) 01/08/22 10:39 GFR Calculation 98.4 mL/min (90-130) 01/08/22 10:39 Glucose 114 mg/dL (65-115) 01/08/22 10:39 Calculated Osmolality 279 mOsm/kg (285-295) L 01/08/22 10:39 Lactic Acid 3.3 mmol/L (0.5-2.2) H 01/08/22 10:39 Calcium 10.0 mg/dL (8.5-10.5) 01/08/22 10:39 Total Bilirubin 1.5 mg/dL (0.15-1.2) H 01/08/22 10:39 AST 80 U/L (0-40) H 01/08/22 10:39 ALT 77 U/L (0-41) H 01/08/22 10:39 Alkaline Phosphatase 106 IU/L (40-130) 01/08/22 10:39 Total Protein 7.8 g/dL (6.6-8.7) 01/08/22 10:39 Albumin 5.0 g/dL (3.5-5.2) 01/08/22 10:39 Globulin 2.8 g/dL (1.3-4.6) 01/08/22 10:39 Triglycerides 200 mg/dL (0-150) H 01/08/22 10:39 Cholesterol 184 mg/dL (0-200) 01/08/22 10:39 LDL Cholesterol, Calc 70 mg/dL (50-129) 01/08/22 10:39 HDL Cholesterol 74 mg/dL (60-100) 01/08/22 10:39 LDL/HDL Ratio 0.95 RATIO (0.00-3.22) 01/08/22 10:39 Cholesterol/HDL Ratio 2.49 mg/dL (1.0-5.00) 01/08/22 10:39 Lipase 450 U/L (13-60) H 01/08/22 10:39 Urine Color Yellow (Yellow) 01/08/22 11:11 Urine Appearance Clear (CLEAR) 01/08/22 11:11 Urine pH 7 (5-7) 01/08/22 11:11 Ur Specific [place] 1.005 (1.005-1.030) 01/08/22 11:11 Urine Protein Neg (Negative) 01/08/22 11:11 Urine Glucose (UA) Norm (Normal) 01/08/22 11:11 Urine Ketones Negative (Negative) 01/08/22 11:11 Urine Blood Neg (Negative) 01/08/22 11:11 Urine Nitrate Negative (Negative) 01/08/22 11:11 Urine Bilirubin Neg (Negative) 01/08/22 11:11 Urine Urobilinogen Norm mg/dL (Negative) 01/08/22 11:11 Ur Leukocyte Esterase Negative (Negative) 01/08/22 11:11 Urine Opiates Screen Negative ng/mL (Negative) 01/08/22 11:11 Ur Barbiturates Screen Negative ng/mL (Negative) 01/08/22 11:11 Ur Phencyclidine Scrn Negative ng/mL (Negative) 01/08/22 11:11 Ur Amphetamines Screen Negative ng/mL (Negative) 01/08/22 11:11 U Benzodiazepines Scrn Negative ng/mL (Negative) 01/08/22 11:11 Urine Cocaine Screen Negative ng/mL (Negative) 01/08/22 11:11 U Marijuana (THC) Screen Negative ng/mL (Negative) 01/08/22 11:11 Discharge Plan Discharge Patient Disposition: Admitted As Inpatient Admit Provider: Troy Hopson Clinical Impression: Acute pancreatitis Condition: Stable Coding Level of Care Code ED Bioinformatics Associate for Chg Fwd Exam Comprehensive Documented by User: Serge Baez MD 01/11/22 22:49 HPI - Abdominal Pain General: Chief Complaint: Abdominal Pain Stated Complaint: severe abominal pain Time Seen by Provider: 01/08/22 10:27 [facility] ED PFSH: Medical History Acute pancreatitis Acute posttraumatic stress disorder Alcohol abuse Anxiety and depression Generalized anxiety disorder with panic attacks GERD (gastroesophageal reflux disease) Hyperlipidemia Hypertension Insomnia Psychiatric care Surgical History (Updated 01/08/22 @ 15:02 by Troy Hopson MD) No pertinent past surgical history Family History (Updated 01/08/22 @ 15:01 by Troy Hopson MD) Father Hypertension Social History Alcohol intake: current Alcohol intake frequency: 0-2 Drinks per Day Marital status: Number of children: 5 Current occupational status: employed Current gender identity: Male Physical Exam Neuro: DEJA COMA SCALE: document GCS findings Deja coma scale total score: 15 Course Vital Signs: Vital signs: Vital Signs Temperature 98.6 F 01/11/22 19:59 Pulse Rate 93 01/11/22 19:59 Respiratory Rate 16 01/11/22 19:59 Blood Pressure 158/100 01/11/22 19:59 Pulse Oximetry 98 01/11/22 19:59 MDM - Abdominal Pain Medical Decision Making Patient has acute pancreatitis today with his lipase being 450 compared to in the 30s two weeks ago during his last visit. He has findings consistent with a cute pancreatitis on CT imaging. He has no necrosis. He is an unchanged cystic lesion most likely a pseudocyst present. Lab work showing mild leukocytosis at 12.0. He does have an elevated lactate at 3.3. He was tachycardic upon arrival therefore I did go ahead and start him on IV fluids and antibiotics. He has chronic elevations to his LFTs that are not significantly changed. US gallbladder was normal. Patient has required repeat narcotic pain doses to adequately control his pain. He does not feel like his pain could be controlled at home therefore he will need to be admitted. I spoke to Dr. Baez who agrees with assessment and plan and will write admit orders. I spoke to Dr. Hopson who will accept patient. Discussed this case with ROBERTO Sarah. I reviewed labs and imaging. I reviewed documentation. Serge Baez MD Emergency Medicine Lab Data : 01/11/22 05:01 01/11/22 05:01 Labs/Radiology: Radiology Impressions Gallbladder Ultrasound 01/08/22 10:54 IMPRESSION: 1. No acute sonographic findings. 2. Additional findings, as above. Abdomen/Pelvis CT 01/08/22 10:55
--- NOTE | 2022-01-08 10:55 | CTR_ITS ---
PROCEDURE INFORMATION: Exam: CT Abdomen And Pelvis With Contrast Exam date and time: 01/08/2022 12:20 PM Age: 31 years old Clinical indication: Abdominal pain; Localized; Right upper quadrant (ruq); Additional info: Diffuse/ruq abdominal pain TECHNIQUE: Imaging protocol: Computed tomography of the abdomen and pelvis with contrast. Axial, coronal and sagittal reformatted images were created and reviewed. Radiation optimization: All CT scans at this facility use at least one of these dose optimization techniques: automated exposure control; mA and/or kV adjustment per patient size (includes targeted exams where dose is matched to clinical indication); or iterative reconstruction. Contrast material: OMNI 300; Contrast volume: 95 ml; Contrast route: INTRAVENOUS (IV); COMPARISON: CT abdomen pelvis w con* [id number] 12/23/2021 10:53 PM RADIATION DOSE METRICS: Total DLP (mGy-cm): 1963.69 FINDINGS: Liver: Mild hepatomegaly. Diffuse hepatic steatosis. 2.1 cm hypervascular lesion in the right hepatic lobe, unchanged and likely a hemangioma. Gallbladder and bile ducts: Mild gallbladder distention without radiodense gallstones. Pancreas: Mild peripancreatic stranding and edema. No necrosis or hemorrhage. Unchanged complex cystic lesion along the posterosuperior margin of the pancreatic tail, measuring approximately 2 x 1.9 cm, possibly a pseudocyst. Spleen: Unremarkable. Adrenal glands: Normal. No mass. Kidneys and ureters: No mass. No radiodense calculi. No hydronephrosis. Stomach and bowel: No bowel wall thickening. No obstruction. No pneumatosis. Appendix: Normal. Intraperitoneal space: No free fluid. No organized fluid collection. No free air. Vasculature: Unremarkable. No aneurysm. Lymph nodes: No pathologically enlarged lymph nodes. Urinary bladder: Unremarkable as visualized. Reproductive: Unremarkable. Bones/joints: No acute osseous abnormality. Osteopenia. Mild degenerative changes. Soft tissues: Unremarkable. CT/CT abdomen pelvis w con* [id number] IMPRESSION: 1. Acute pancreatitis, as described above. Correlate with serum amylase and lipase levels. No necrosis or hemorrhage. 2. Unchanged complex cystic lesion along the posterosuperior margin of the pancreatic tail, measuring approximately 2 x 1.9 cm, possibly a pseudocyst. 3. Additional findings, as above.
[2022-01-08] MEDS: ondansetron 2 mg/ML SDV 2 mL 4 MG IVP ×2 (11:07→15:12)
[2022-01-08] MEDS: morphine 4 mg/mL SDV 1 mL IVP (11:07)
[2022-01-08] MEDS: sodium chloride 0.9% 1,000 ML 999 ML IV (11:08)
[2022-01-08 11:10] LABS: Basophils % 0.3 %; Eosinophils % 0.1 %; Hematocrit 48.6 % (42.0-52.0); Hemoglobin 16.7 g/dL (11.7-16.6); Lymphocytes # 2.1 10^3/uL (0.8-4.8); Lymphocytes % 17.2 %; Mean Corpuscular HGB Conc 34.4 g/dL (30.0-36.0); Mean Corpuscular Hemoglobin 32.2 pg (28.0-34.0); Mean Corpuscular Volume 93.8 fl (80-94); Mean Platelet Volume 10.1 fL (7.4-10.4); Monocytes # 0.9 10^3/uL (0.2-0.9); Monocytes % 7.4 %; Neutrophils # 8.94 10^3/uL (1.8-7.7); Neutrophils % 74.7 %; Nucleated Red Blood Cells % 0 %; Platelet Count 213 10^3/cmm (130-400); Red Blood Count 5.18 10^6/uL (4.1-5.3)
[2022-01-08 11:21] LABS: Alanine Aminotransferase 77 U/L (0-41); Alkaline Phosphatase 106 IU/L (40-130); Aspartate Amino Transferase 80 U/L (0-40); Blood Urea Nitrogen 7 mg/dL (6-20); Carbon Dioxide 21 mmol/L (22-29); Chloride 96 mmol/L (98-107); Creatinine Clr Calc Pharmacy 151.5652; Globulin 2.8 g/dL (1.3-4.6); Glomerular Filtration Rate 98.4 mL/min (90-130); Glucose 114 mg/dL (65-115); Osmolality Calculated 279 mOsm/kg (285-295); Sodium 135 mmol/L (136-145); Total Bilirubin 1.5 mg/dL (0.15-1.2); Total Protein 7.8 g/dL (6.6-8.7)
[2022-01-08 11:22] LABS: Lactic Sepsis W/Reflex 3.3 mmol/L (0.5-2.2)
[2022-01-08 11:26] LABS: Add Urine Microscopic? NO; Charge for UA Resulting for Rev
[2022-01-08 11:33] LABS: Bilirubin Urine Neg (Negative); Blood Urine Neg (Negative); Glucose Urine UA Norm (Normal); Ketones Urine Negative (Negative); Leukocyte Esterase Urine Negative (Negative); Nitrate Urine Negative (Negative); Protein Urine Neg (Negative); Specific Gravity, Urine 1.005 (1.005-1.030); Urine Appearance Clear (CLEAR); Urine Color Yellow (Yellow); Urobilinogen Urine Norm (Negative); pH Urine 7 (5-7)
[2022-01-08 11:34] LABS: Lipase 450 U/L (13-60)
[2022-01-08 11:35] LABS: Anion Gap 22.1 (5-19); Potassium 4.1 mmol/L (3.5-5.1)
[2022-01-08] MEDS: HYDROmorphone 1 mg/mL INJ 1 mL IVP ×4 (11:43→23:21)
[2022-01-08 11:48] LABS: Reflex Lactate Order REFLEX LACTIC ORDERD
[2022-01-08] MEDS: piperacillin-tazobactam 3.375 GM in sodium chloride 0.9% (plus) 50 ML IV (12:07)
[2022-01-08] MEDS: lactated ringers 1,000 ML 999 ML IV (12:08)
[2022-01-08] MEDS: iohexol 300 mg/mL 100 mL Btl IV (12:23)
[2022-01-08 14:51] LABS: Amphetamines Screen Urine Negative (Negative); Barbiturates Screen Urine Negative (Negative); Benzodiazepines Screen Urine Negative (Negative); Cocaine Screen Urine Negative (Negative); Opiate Screen Urine Negative (Negative); PCP Screen Urine Negative (Negative); THC Screen Urine Negative (Negative)
--- NOTE | 2022-01-08 14:59 | P.HP_ITS ---
Providers/Chief Complaint Admitting Physician: Troy Hopson MD Primary Care Provider: Antonio Alvarado MD Chief Complaint: severe abominal pain History of Present Illness Buddy Cowan is a 31 year old male with a past medical history of hypertension, hyperlipidemia, anxiety depression, GERD, PTSD, history of alcohol abuse in the past, history of pancreatitis, who presents to [facility] for a 1 day history of abdominal pain. Patient tells her that yesterday in the evening, he is feeling some abdominal cramps and bloating. This morning he woke up with abdominal pain, in the epigastric region, mid abdomen, he had a bowel movement this morning, feels nauseous, no vomiting, his last alcohol drink was last night had a glass of wine, but does not regularly drink alcohol, no history of drug use, no history of gallstones, no history of steroid use, no history of hypertriglyceridemia. Here in the emergency room he was found to have acute pancreatitis with a lipase in the 400s, pain was not well controlled with Dilaudid, morphine, hospitalist team was called for admission, lactic acid is 3.3. Review of Systems Const: Denies: fever(s) Eyes: Denies: change in vision ENMT: Denies: nasal congestion Resp: Denies: dyspnea GI: Denies: vomiting, hematemesis, diarrhea, constipation, hematochezia or melena : Denies: dysuria Musc: Denies: back pain Skin/Breast: Denies: rash Neuro: Denies: headache(s), dizziness or vertigo Endo: Denies: polyuria or polydipsia Medications/Allergies Home Medications Medication Instructions Recorded Confirmed Last Taken Type Vitamin B-12 1 tab PO DAILY 01/30/21 10/15/21 Unknown History Vitamin D3 1 cap PO DAILY 01/30/21 10/15/21 Unknown History lisinopril 40 mg tablet 40 mg PO QAM 01/30/21 10/15/21 01/30/21 History ondansetron HCl 8 mg tablet 8 mg PO Q8H PRN 30 Days #60 tab 06/21/21 10/15/21 Unknown Rx metoprolol succinate 100 mg 50 mg PO DAILY tab 08/18/21 10/15/21 Unknown History tablet,extended release 24 hr sertraline 100 mg tablet 150 mg PO DAILY #45 tab 08/18/21 10/15/21 Unknown Rx hydrocodone 5 mg-acetaminophen 325 1 tab PO TID PRN #14 tab 10/11/21 10/15/21 Unknown Rx mg tablet levofloxacin 750 mg tablet 750 mg PO DAILY #10 tab 10/15/21 10/15/21 Unknown Rx omeprazole 40 mg capsule,delayed 40 mg PO DAILY PRN #30 cap 10/15/21 10/15/21 Unknown Rx release sucralfate 100 mg/mL oral 1 g (10 mL) PO TID #420 ml 10/15/21 10/15/21 Unknown Rx suspension (Carafate) zolpidem 5 mg tablet (Ambien) 5 mg PO .hs PRN #30 tab 10/15/21 10/15/21 Unknown Rx atorvastatin 40 mg tablet 40 mg PO DAILY #30 tab 10/18/21 Unknown Rx metoclopramide HCl 10 mg tablet 10 mg PO Q6H PRN #14 tab 12/24/21 Unknown Rx (Reglan) Allergies Allergy/AdvReac Type Severity Reaction Status Date / Time aspirin Allergy Unknown Unknown Verified 12/23/21 21:28 NSAIDS (Non-Steroidal Allergy Unknown Unknown Verified 12/23/21 21:28 Anti-Inflamma buspirone AdvReac Intermediate ADR-Anxiety Verified 12/23/21 21:28 PFSH Acute PFSH: Medical History Acute pancreatitis Acute posttraumatic stress disorder Alcohol abuse Anxiety and depression Generalized anxiety disorder with panic attacks GERD (gastroesophageal reflux disease) Hyperlipidemia Hypertension Insomnia Psychiatric care Surgical History (Updated 01/08/22 @ 15:02 by Troy Hopson MD) No pertinent past surgical history Family History (Updated 01/08/22 @ 15:01 by Troy Hopson MD) Father Hypertension Social History Alcohol intake: current Alcohol intake frequency: 0-2 Drinks per Day Marital status: Number of children: 5 Current occupational status: employed Current gender identity: Male Vitals/I&O/Wt Last Vital Signs Temp 98.4 F 01/08/22 14:30 Pulse 113 H 01/08/22 14:30 Resp 20 H 01/08/22 14:30 BP 170/110 01/08/22 14:30 Pulse Ox 97 01/08/22 14:30 01/07/22 01/08/22 01/08/22 22:59 06:59 14:59 Intake Total 2049 Balance 2049 Weight last 48 hrs Weight 108.862 kg Weight 108.862 kg Physical Exam Const: COMMON NORMALS: no acute distress and patient oriented x3 HENMT: COMMON NORMALS: normocephalic HEAD & SCALP: normocephalic Eye: COMMON NORMALS: Equal, round and reactive pupils present and EOMs intact bilaterally Neck/C-Spine: COMMON NORMALS: no JVD Lymph: LYMPHATIC: no lymphadenopathy noted Resp: COMMON NORMALS: normal respiratory effort, No retractions, No use of accessory muscles and clear to auscultation bilaterally AUSCULTATION: clear to auscultation bilaterally Cardio: COMMON NORMALS: no JVD, regular rate, regular rhythm, S1 normal heart sound present and S2 normal heart sound present RATE: regular rate RHYTHM: regular rhythm HEART SOUNDS: S1 normal heart sound present and S2 normal heart sound present GI: COMMON NORMALS: Soft to palpation, no masses and no bruits INSPECTION: Yes abdominal distension AUSCULTATION: Yes Hypoactive bowel sounds present PALPATION: Yes Soft to palpation, Yes Tenderness to palpation present (GI) (Mid abdomen, epigastric region) and Yes No hepatosplenomegaly present Extremity: COMMON NORMALS: capillary refill normal, no clubbing, cyanosis or edema, no calf tenderness and no pedal edema Neuro: COMMON NORMALS: patient oriented x3, CN's II-XII intact bilaterally, moves all extremities and no focal motor deficits Psych: COMMON NORMALS: mental status grossly normal Data : 01/08/22 10:39 01/08/22 10:39 A&P Assessment and plan (1) Acute pancreatitis: Status: Acute Qualifiers: Acute pancreatitis complication: no infection or necrosis Pancreatitis type: other Qualified Code(s): K85.80 - Other acute pancreatitis without necrosis or infection (2) Hyperlipidemia: Status: Acute (3) Anxiety and depression: Status: Acute Plan Acute on chronic pancreatitis -History of alcohol use -We will check triglyceride levels -N.p.o. -IV fluids -Dilaudid for pain control -Serial abdominal exams -WBC elevated, lactic acid elevated, no focal signs of infection, has a pancreatic pseudocyst, continue to monitor -Full code -Lovenox for DVT prophylaxis Hypertension, continue metoprolol, lisinopril, labetalol as needed Attestations Medical Necessity Statement*: Patient requires hospitalization for acute pancreatitis, inpatient, greater than 2 midnights Coding Level of Care Code Acute Loom Inspector for [facility] 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
[2022-01-08] MEDS: pantoprazole 40 mg SDV IVP (15:12)
[2022-01-08] MEDS: cloNIDine 0.1 mg Tablet PO (15:12)
[2022-01-08] MEDS: sodium chloride 0.9% 1,000 ML 125 ML IV ×2 (15:13→23:21)
[2022-01-08 15:23] LABS: Chol HDL Ratio 2.49 mg/dL (1.0-5.00); Cholesterol 184 mg/dL (0-200); HDL Cholesterol 74 mg/dL (60-100); LDL Cholesterol Calculated 70 mg/dL (50-129); LDL HDL Ratio 0.95 RATIO (0.00-3.22); Triglycerides 200 mg/dL (0-150)
--- NOTE | 2022-01-08 15:29 | PC.NURSE ---
Patient refused to take Lovenox stating he wanted to only use the SCD's. Notified the physician.
[2022-01-08] MEDS: metoclopramide 5 mg/mL SDV 2 mL IVP (19:39)
[2022-01-08] MEDS: atorvastatin 40 mg Tablet PO (21:07)
[2022-01-08] MEDS: trazodone 50 mg Tablet 25 MG PO (21:08)
[2022-01-09] VITALS (15 sets, daily range): BP systolic 133–160; BP diastolic 88–103; PULSE 81–102; RESP 16–18; TEMP 36.6–37.1; O2SAT 94–98
[2022-01-09] MEDS: cloNIDine 0.1 mg Tablet PO ×2 (03:17→15:57)
[2022-01-09] MEDS: HYDROmorphone 1 mg/mL INJ 1 mL IVP ×4 (03:18→19:41)
[2022-01-09] MEDS: metoclopramide 5 mg/mL SDV 2 mL IVP ×4 (03:23→19:40)
[2022-01-09 08:05] LABS: Basophils % 0.4 %; Eosinophils # 0.1 10^3/uL (0.0-0.8); Eosinophils % 0.9 %; Hematocrit 41.3 % (42.0-52.0); Hemoglobin 13.7 g/dL (11.7-16.6); Lymphocytes # 1.7 10^3/uL (0.8-4.8); Lymphocytes % 24.4 %; Mean Corpuscular HGB Conc 33.2 g/dL (30.0-36.0); Mean Corpuscular Hemoglobin 32.2 pg (28.0-34.0); Mean Corpuscular Volume 97.2 fl (80-94); Monocytes # 0.5 10^3/uL (0.2-0.9); Monocytes % 7.6 %; Neutrophils # 4.57 10^3/uL (1.8-7.7); Neutrophils % 66.4 %; Nucleated Red Blood Cells % 0 %; Platelet Count 141 10^3/cmm (130-400); Red Blood Count 4.25 10^6/uL (4.1-5.3); Red Cell Distribution Width 13.4 % (12.1-15.1); White Blood Count 6.9 10^3/uL (4.0-10.0)
[2022-01-09 08:25] LABS: Alanine Aminotransferase 45 U/L (0-41); Alkaline Phosphatase 86 IU/L (40-130); Anion Gap 14.8 (5-19); Aspartate Amino Transferase 37 U/L (0-40); Blood Urea Nitrogen 6 mg/dL (6-20); C Reactive Protein 64.2 mg/L (0.0-4.9); Calcium 8.9 mg/dL (8.5-10.5); Carbon Dioxide 22 mmol/L (22-29); Chloride 103 mmol/L (98-107); Globulin 2.2 g/dL (1.3-4.6); Glomerular Filtration Rate 112.8 mL/min (90-130); Glucose 104 mg/dL (65-115); Magnesium 1.7 mg/dL (1.7-2.3); Osmolality Calculated 280 mOsm/kg (285-295); Phosphorus 3.4 mg/dL (2.5-4.5); Potassium 3.8 mmol/L (3.5-5.1); Sodium 136 mmol/L (136-145); Total Bilirubin 1.3 mg/dL (0.15-1.2); Total Protein 6.2 g/dL (6.6-8.7)
[2022-01-09 08:40] LABS: Lipase 415 U/L (13-60)
[2022-01-09] MEDS: sodium chloride 0.9% 1,000 ML 125 ML IV (08:54)
[2022-01-09] MEDS: metoprolol succinate ER (24 HR) 50 mg Tablet PO (08:55)
[2022-01-09] MEDS: lisinopril 20 mg Tablet 40 MG PO (08:55)
--- NOTE | 2022-01-09 15:10 | P.PN_ITS ---
Subjective Subjective: Patient was seen this morning, continues to have diffuse abdominal pain, nausea, is not passing gas, abdomen is distended, diffusely tender Vitals/I&O/Wt Last Vital Signs Temp 98.8 F 01/09/22 12:00 Pulse 99 01/09/22 12:00 Resp 16 01/09/22 13:38 BP 156/103 01/09/22 12:00 Pulse Ox 97 01/09/22 12:00 01/09/22 01/09/22 01/09/22 06:59 14:59 22:59 Intake Total 1000 / 3050 1387.5 / 1387.5 Balance 1000 / 2400 1387.5 / 1387.5 Weight last 48 hrs Weight 108.862 kg Weight 108.862 kg Physical Exam Const: COMMON NORMALS: no acute distress and patient oriented x3 Resp: COMMON NORMALS: normal respiratory effort, No retractions, No use of accessory muscles and clear to auscultation bilaterally AUSCULTATION: clear to auscultation bilaterally Cardio: COMMON NORMALS: regular rate, regular rhythm, S1 normal heart sound present and S2 normal heart sound present RATE: regular rate RHYTHM: regular rhythm HEART SOUNDS: S1 normal heart sound present and S2 normal heart sound present GI: COMMON NORMALS: Soft to palpation INSPECTION: Yes abdominal distension AUSCULTATION: Yes Hypoactive bowel sounds present PALPATION: Yes Soft to palpation, Yes Tenderness to palpation present (GI) (Diffusely tender), No Guarding due to palpation present (GI) and No Rigid due to palpation Extremity: COMMON NORMALS: no pedal edema Neuro: COMMON NORMALS: patient oriented x3 Psych: COMMON NORMALS: mental status grossly normal Data : 01/09/22 07:52 01/09/22 07:52 A&P Assessment and plan (1) Acute pancreatitis: Status: Acute Qualifiers: Acute pancreatitis complication: no infection or necrosis Pancreatitis type: other Qualified Code(s): K85.80 - Other acute pancreatitis without necrosis or infection (2) Hyperlipidemia: Status: Acute (3) Anxiety and depression: Status: Acute Plan Acute on chronic pancreatitis -History of alcohol use -Triglycerides 200 -N.p.o. -IV fluids -Start peripheral nutrition today -Dilaudid for pain control -Serial abdominal exams -WBC elevated, lactic acid elevated, no focal signs of infection, has a pancreatic pseudocyst, continue to monitor -Full code -Lovenox for DVT prophylaxis Hypertension, continue metoprolol, lisinopril, labetalol as needed Attestations Medical Necessity Statement*: Patient requires hospitalization for acute pancreatitis Coding Level of Care Code Acute Well Logging Mud Analysis Captain for [facility] Diagnoses Acute pancreatitis K85.80 Acute pancreatitis complication: no infection or necrosis Pancreatitis type: other Hyperlipidemia E78.5 Anxiety and depression F41.9; F32.A
[2022-01-09] MEDS: pantoprazole 40 mg SDV IVP (15:17)
[2022-01-09] MEDS: sodium chloride 0.9% 1,000 ML 90 ML IV (17:45)
--- NOTE | 2022-01-09 19:45 | PC.NURSE ---
i reported high pulse 101 to nurse
[2022-01-09] MEDS: trazodone 50 mg Tablet 25 MG PO (20:53)
[2022-01-09] MEDS: atorvastatin 40 mg Tablet PO (20:53)
[2022-01-10] VITALS (15 sets, daily range): BP systolic 134–169; BP diastolic 87–109; PULSE 73–95; RESP 16–20; TEMP 36.8–37.3; O2SAT 95–97
[2022-01-10] MEDS: metoclopramide 5 mg/mL SDV 2 mL IVP ×5 (00:21→20:26)
[2022-01-10] MEDS: HYDROmorphone 1 mg/mL INJ 1 mL IVP ×5 (00:22→20:27)
[2022-01-10] MEDS: cloNIDine 0.1 mg Tablet PO ×2 (04:01→14:14)
[2022-01-10 04:11] LABS: Basophils % 0.5 %; Eosinophils # 0.1 10^3/uL (0.0-0.8); Eosinophils % 1.8 %; Hematocrit 36.9 % (42.0-52.0); Hemoglobin 12.1 g/dL (11.7-16.6); Lymphocytes # 1.7 10^3/uL (0.8-4.8); Lymphocytes % 23.5 %; Mean Corpuscular HGB Conc 32.8 g/dL (30.0-36.0); Mean Corpuscular Hemoglobin 32.5 pg (28.0-34.0); Mean Corpuscular Volume 99.2 fl (80-94); Mean Platelet Volume 10.8 fL (7.4-10.4); Monocytes # 0.5 10^3/uL (0.2-0.9); Monocytes % 6.3 %; Neutrophils # 5.03 10^3/uL (1.8-7.7); Neutrophils % 67.8 %; Nucleated Red Blood Cells % 0 %; Platelet Count 114 10^3/cmm (130-400); Red Blood Count 3.72 10^6/uL (4.1-5.3); Red Cell Distribution Width 13.2 % (12.1-15.1); White Blood Count 7.4 10^3/uL (4.0-10.0)
[2022-01-10 04:22] LABS: Alanine Aminotransferase 31 U/L (0-41); Albumin Level 3.5 g/dL (3.5-5.2); Alkaline Phosphatase 73 IU/L (40-130); Anion Gap 14.5 (5-19); Aspartate Amino Transferase 30 U/L (0-40); Blood Urea Nitrogen 8 mg/dL (6-20); Calcium 8.6 mg/dL (8.5-10.5); Carbon Dioxide 23 mmol/L (22-29); Chloride 101 mmol/L (98-107); Globulin 2.9 g/dL (1.3-4.6); Glomerular Filtration Rate 131.5 mL/min (90-130); Glucose 90 mg/dL (65-115); Lipase 110 U/L (13-60); Magnesium 1.7 mg/dL (1.7-2.3); Osmolality Calculated 278 mOsm/kg (285-295); Phosphorus 3.3 mg/dL (2.5-4.5); Potassium 3.5 mmol/L (3.5-5.1); Sodium 135 mmol/L (136-145); Total Bilirubin 0.8 mg/dL (0.15-1.2); Total Protein 6.4 g/dL (6.6-8.7)
[2022-01-10] MEDS: sodium chloride 0.9% 1,000 ML 90 ML IV (05:47)
[2022-01-10] MEDS: lisinopril 20 mg Tablet 40 MG PO (08:06)
[2022-01-10] MEDS: metoprolol succinate ER (24 HR) 50 mg Tablet PO (08:06)
[2022-01-10] MEDS: morphine 4 mg/mL SDV 1 mL 2 MG IVP (11:50)
[2022-01-10] MEDS: pantoprazole 40 mg SDV IVP (14:13)
[2022-01-10] MEDS: hyDRALAzine 10 mg Tablet PO ×2 (14:14→20:25)
[2022-01-10] MEDS: piperacillin-tazobactam 3.375 GM in sodium chloride 0.9% (plus) 50 ML IV ×2 (14:14→21:58)
--- NOTE | 2022-01-10 14:14 | P.PN_ITS ---
Subjective Subjective: Patient was seen this morning, continues to have abdominal pain, but improved, had a bowel movement, is passing gas, continues to have epigastric tenderness, afebrile overnight, but does report chills Vitals/I&O/Wt Last Vital Signs Temp 98.3 F 01/10/22 11:05 Pulse 84 01/10/22 11:05 Resp 17 01/10/22 11:05 BP 147/95 01/10/22 11:05 Pulse Ox 95 01/10/22 11:05 01/09/22 01/10/22 01/10/22 22:59 06:59 14:59 Intake Total 517.5 / 1905.0 1000 / 2905.0 782.333 / 782.333 Balance 517.5 / 1905.0 1000 / 2905.0 782.333 / 782.333 Weight last 48 hrs Weight 108.862 kg Physical Exam Const: COMMON NORMALS: no acute distress and patient oriented x3 Resp: COMMON NORMALS: normal respiratory effort, No retractions, No use of accessory muscles and clear to auscultation bilaterally AUSCULTATION: clear to auscultation bilaterally Cardio: COMMON NORMALS: regular rate, regular rhythm, S1 normal heart sound present and S2 normal heart sound present RATE: regular rate RHYTHM: regular rhythm HEART SOUNDS: S1 normal heart sound present and S2 normal heart sound present GI: INSPECTION: Yes abdominal distension AUSCULTATION: Yes Hypoactive bowel sounds present PALPATION: Yes Tenderness to palpation present (GI) Extremity: COMMON NORMALS: no pedal edema Neuro: COMMON NORMALS: patient oriented x3 Psych: COMMON NORMALS: mental status grossly normal Data : 01/10/22 03:15 01/10/22 03:15 A&P Assessment and plan (1) Acute pancreatitis: Status: Acute Qualifiers: Acute pancreatitis complication: no infection or necrosis Pancreatitis type: other Qualified Code(s): K85.80 - Other acute pancreatitis without necrosis or infection (2) Hyperlipidemia: Status: Acute (3) Anxiety and depression: Status: Acute Plan Acute on chronic pancreatitis -History of alcohol use -Triglycerides 200 -N.p.o. 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
--- NOTE | 2022-01-10 15:35 | PC.NURSE ---
Patient did not have a great day. Blood pressure is running a little high, meds adjusted (see MAR). Patient have some severe pain in abdomen and a slight headache throughout the day, meds given as needed. Patient was advised to take walks and take naps to help. TPN is now running at 40 ml/hr and fluids at 30 ml/hr. Abx stated. MD Hopson okayed for patients to stay overnight for emotional support due to patients anxiety. Will continue to monitor and give report to night nurse.
[2022-01-10] MEDS: atorvastatin 40 mg Tablet PO (20:25)
[2022-01-11] VITALS (12 sets, daily range): BP systolic 134–158; BP diastolic 84–100; PULSE 76–93; RESP 14–18; TEMP 36.7–37; O2SAT 94–98
[2022-01-11] MEDS: HYDROmorphone 1 mg/mL INJ 1 mL IVP ×2 (00:13→05:50)
[2022-01-11] MEDS: metoclopramide 5 mg/mL SDV 2 mL IVP ×2 (00:14→05:52)
[2022-01-11] MEDS: sodium chloride 0.9% 1,000 ML 30 ML IV ×2 (00:14→15:14)
[2022-01-11] MEDS: cloNIDine 0.1 mg Tablet PO ×2 (04:16→14:24)
[2022-01-11 05:22] LABS: Basophils % 0.5 %; Eosinophils # 0.1 10^3/uL (0.0-0.8); Eosinophils % 1.6 %; Hematocrit 37.8 % (42.0-52.0); Hemoglobin 12.5 g/dL (11.7-16.6); Lymphocytes # 1.4 10^3/uL (0.8-4.8); Lymphocytes % 18.3 %; Mean Corpuscular HGB Conc 33.1 g/dL (30.0-36.0); Mean Corpuscular Hemoglobin 32.8 pg (28.0-34.0); Mean Corpuscular Volume 99.2 fl (80-94); Mean Platelet Volume 10.8 fL (7.4-10.4); Monocytes # 0.6 10^3/uL (0.2-0.9); Monocytes % 7.9 %; Neutrophils # 5.29 10^3/uL (1.8-7.7); Neutrophils % 71.3 %; Nucleated Red Blood Cells % 0 %; Platelet Count 108 10^3/cmm (130-400); Red Blood Count 3.81 10^6/uL (4.1-5.3); Red Cell Distribution Width 13.1 % (12.1-15.1); White Blood Count 7.4 10^3/uL (4.0-10.0)
[2022-01-11 05:36] LABS: Alanine Aminotransferase 25 U/L (0-41); Albumin Level 3.5 g/dL (3.5-5.2); Anion Gap 13.2 (5-19); Aspartate Amino Transferase 22 U/L (0-40); Blood Urea Nitrogen 7 mg/dL (6-20); C Reactive Protein 197.2 mg/L (0.0-4.9); Calcium 8.8 mg/dL (8.5-10.5); Carbon Dioxide 24 mmol/L (22-29); Chloride 101 mmol/L (98-107); Glomerular Filtration Rate 157.1 mL/min (90-130); Glucose 101 mg/dL (65-115); Magnesium 1.9 mg/dL (1.7-2.3); Osmolality Calculated 278 mOsm/kg (285-295); Phosphorus 3.6 mg/dL (2.5-4.5); Potassium 3.2 mmol/L (3.5-5.1); Sodium 135 mmol/L (136-145); Total Bilirubin 0.9 mg/dL (0.15-1.2); Total Protein 6.8 g/dL (6.6-8.7)
[2022-01-11 05:37] LABS: Alkaline Phosphatase 72 IU/L (40-130); Globulin 3.3 g/dL (1.3-4.6); Lipase 116 U/L (13-60)
[2022-01-11] MEDS: hyDRALAzine 10 mg Tablet PO ×3 (05:40→21:42)
[2022-01-11] MEDS: piperacillin-tazobactam 3.375 GM in sodium chloride 0.9% (plus) 50 ML IV ×3 (05:40→21:41)
[2022-01-11] MEDS: lisinopril 20 mg Tablet 40 MG PO (08:16)
[2022-01-11] MEDS: metoprolol succinate ER (24 HR) 50 mg Tablet PO (08:16)
[2022-01-11] MEDS: morphine 4 mg/mL SDV 1 mL 2 MG IVP (08:42)
[2022-01-11] MEDS: lidocaine 1% 5 ML in potassium chloride premix 100 ML 25 ML IV (09:52)
--- NOTE | 2022-01-11 13:11 | PM.PN ---
Subjective Subjective: Patient was seen this morning, clinically he tells me he is feeling better, his abdominal distention has improved, abdominal pain is improved, he is passing gas, had bowel movements, no nausea, no vomiting Vitals/I&O/Wt Last Vital Signs Temp 98.0 F 01/11/22 11:20 Pulse 83 01/11/22 11:20 Resp 14 01/11/22 11:20 BP 134/86 01/11/22 11:20 Pulse Ox 94 01/11/22 11:20 01/10/22 01/11/22 01/11/22 22:59 06:59 14:59 Intake Total 364.667 / 1302.000 568.333 / 1870.333 655.833 / 655.833 Output Total 300 / 300 Balance 364.667 / 1302.000 568.333 / 1870.333 355.833 / 355.833 Physical Exam Const: COMMON NORMALS: no acute distress and patient oriented x3 Resp: COMMON NORMALS: normal respiratory effort, No retractions, No use of accessory muscles and clear to auscultation bilaterally AUSCULTATION: clear to auscultation bilaterally Cardio: COMMON NORMALS: regular rate, regular rhythm, S1 normal heart sound present and S2 normal heart sound present RATE: regular rate RHYTHM: regular rhythm HEART SOUNDS: S1 normal heart sound present and S2 normal heart sound present GI: COMMON NORMALS: Normal to inspection, nondistended, normoactive bowel sounds present and Soft to palpation AUSCULTATION: Yes normoactive bowel sounds PALPATION: Yes Soft to palpation OTHER: Slight abdominal tenderness in the epigastrium, right upper quadrant Extremity: COMMON NORMALS: no pedal edema Neuro: COMMON NORMALS: patient oriented x3 Psych: COMMON NORMALS: mental status grossly normal Data : 01/11/22 05:01 01/11/22 05:01 Micro: Microbiology 01/10/22 14:36 Blood Culture - Preliminary Blood SPECIMEN COLLECTED 01/10/22 14:36 Blood Culture - Preliminary Blood SPECIMEN COLLECTED A&P Assessment and plan (1) Acute pancreatitis: Status: Acute Qualifiers: Acute pancreatitis complication: no infection or necrosis Pancreatitis type: other Qualified Code(s): K85.80 - Other acute pancreatitis without necrosis or infection (2) Hyperlipidemia: Status: Acute (3) Anxiety and depression: Status: Acute Plan Acute on chronic pancreatitis -History of alcohol use -Triglycerides 200 -Transition to clears -On TPN decreased to 30 cc/h -Dilaudid for pain control, morphine for breakthrough pain -On d Zosyn for antibiotic coverage -Serial abdominal exams -We will consider repeating CT scan in 24 hours if he does not clinically improve -Full code -Lovenox for DVT prophylaxis Hypertension, continue metoprolol, lisinopril, labetalol as needed, add on clonidine, hydralazine Attestations Medical Necessity Statement*: Patient requires hospitalization for acute pancreatitis Coding Level of Care Code 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
[2022-01-11] MEDS: pantoprazole 40 mg SDV IVP (14:24)
[2022-01-11] MEDS: acetaminophen 325 mg Tablet 650 MG PO (17:35)
--- NOTE | 2022-01-11 19:47 | PC.NURSE ---
Patient advanced diet today and discontinued TPA. Patient tolerated lunch and dinner with clear liquids, now advanced to full liquids. While patient was going to the bathroom, patient got into the high 100s then decreased after having bowel movement. Otherwise vitals stable. Patient ambulated halls throughout shift. Patient states that he is feeling ready to leave, MD Hopson stated he would feel more comfortable with patient staying another night for observation. Report given to night nurse Maxi.
[2022-01-11] MEDS: atorvastatin 40 mg Tablet PO (21:42)
[2022-01-12 04:00] VITALS: BP 142/92; PULSE 91; RESP 20; TEMP 36.7; O2SAT 99
[2022-01-12] MEDS: cloNIDine 0.1 mg Tablet PO (04:22)
[2022-01-12] MEDS: hyDRALAzine 10 mg Tablet PO (04:23)
[2022-01-12] MEDS: ondansetron 2 mg/ML SDV 2 mL 4 MG IVP (05:14)
[2022-01-12] MEDS: piperacillin-tazobactam 3.375 GM in sodium chloride 0.9% (plus) 50 ML IV (05:14)
[2022-01-12 05:40] VITALS: PULSE 78
[2022-01-12 05:52] LABS: Basophils % 0.4 %; Eosinophils # 0.1 10^3/uL (0.0-0.8); Eosinophils % 1.8 %; Hemoglobin 12.7 g/dL (11.7-16.6); Lymphocytes # 1.1 10^3/uL (0.8-4.8); Lymphocytes % 14.5 %; Mean Corpuscular HGB Conc 33.4 g/dL (30.0-36.0); Mean Corpuscular Hemoglobin 32.3 pg (28.0-34.0); Mean Corpuscular Volume 96.7 fl (80-94); Mean Platelet Volume 10.7 fL (7.4-10.4); Monocytes # 0.7 10^3/uL (0.2-0.9); Monocytes % 9.1 %; Neutrophils # 5.61 10^3/uL (1.8-7.7); Neutrophils % 73.9 %; Nucleated Red Blood Cells % 0 %; Platelet Count 135 10^3/cmm (130-400); Red Blood Count 3.93 10^6/uL (4.1-5.3); Red Cell Distribution Width 13.1 % (12.1-15.1); White Blood Count 7.6 10^3/uL (4.0-10.0)
[2022-01-12] MEDS: acetaminophen 325 mg Tablet 650 MG PO (05:55)
[2022-01-12 08:00] VITALS: BP 138/84; PULSE 81; RESP 18; TEMP 36.7; O2SAT 98
[2022-01-12] MEDS: lisinopril 20 mg Tablet 40 MG PO (09:34)
[2022-01-12] MEDS: metoprolol succinate ER (24 HR) 50 mg Tablet PO (09:34)
[2022-01-12 10:13] LABS: Alanine Aminotransferase 24 U/L (0-41); Albumin Level 3.6 g/dL (3.5-5.2); Alkaline Phosphatase 79 IU/L (40-130); Anion Gap 17.5 (5-19); Aspartate Amino Transferase 27 U/L (0-40); Blood Urea Nitrogen 9 mg/dL (6-20); C Reactive Protein 116.7 mg/L (0.0-4.9); Carbon Dioxide 20 mmol/L (22-29); Chloride 103 mmol/L (98-107); Glomerular Filtration Rate 131.5 mL/min (90-130); Glucose 92 mg/dL (65-115); Lipase 157 U/L (13-60); Magnesium 1.9 mg/dL (1.7-2.3); Osmolality Calculated 282 mOsm/kg (285-295); Potassium 3.5 mmol/L (3.5-5.1); Sodium 137 mmol/L (136-145); Total Bilirubin 0.6 mg/dL (0.15-1.2); Total Protein 6.6 g/dL (6.6-8.7)
[2022-01-12 10:57] VITALS: BP 138/84; PULSE 81; RESP 18; TEMP 36.7; O2SAT 98
--- NOTE | 2022-01-12 11:08 | P.DS_ITS ---
Discharge Providers Date of Admission: 01/08/22 13:24 Date of Discharge: January 12, 2022 Attending Provider at Admission: Troy Hopson MD Attending Provider at Discharge: Troy Hopson MD Primary Care Provider: Antonio Alvarado MD Diagnoses at Discharge Discharge Diagnosis (1) Acute pancreatitis: Status: Acute Qualifiers: Acute pancreatitis complication: no infection or necrosis Pancreatitis type: other Qualified Code(s): K85.80 - Other acute pancreatitis without necrosis or infection (2) Hyperlipidemia: Status: Acute (3) Anxiety and depression: Status: Acute Reason for Visit Reason for Visit: severe abominal pain Hospital Course Hospital Course This is a 31-year-old male, with a past medical history of hypertension, who presents [facility] due to complaints of abdominal pain. Patient was admitted to [facility] for acute pancreatitis, managed conservatively, n.p.o., IV fluids, due to persistent abdominal pain started on peripheral nutrition, IV antibiotics Patient was monitored for the next 48 hours clinically improved, abdominal pain resolved, passing gas, having bowel movements. Patient will be discharged with close follow-up with his primary care provider as outpatient, advised to abstain from alcohol, slowly advance diet, avoid fatty foods, if he were to have recurrent abdominal pain go to the emergency room. Physical Exam Const: COMMON NORMALS: no acute distress and patient oriented x3 Resp: COMMON NORMALS: normal respiratory effort, No retractions, No use of accessory muscles and clear to auscultation bilaterally AUSCULTATION: clear to auscultation bilaterally Cardio: COMMON NORMALS: regular rate, regular rhythm, S1 normal heart sound present and S2 normal heart sound present RATE: regular rate RHYTHM: regular rhythm HEART SOUNDS: S1 normal heart sound present and S2 normal heart sound present GI: COMMON NORMALS: Normal to inspection, nondistended, normoactive bowel sounds present, Soft to palpation, non-tender and No hepatosplenomegaly present PALPATION: Yes Soft to palpation and Yes No hepatosplenomegaly present Extremity: COMMON NORMALS: no pedal edema Neuro: COMMON NORMALS: patient oriented x3 Psych: COMMON NORMALS: mental status grossly normal Discharge Data Studies Completed and Pending Completed Studies During Hospitalization Category Date Time Status CT abdomen pelvis w con* [id number] Urgent Cat Scan 01/08/22 10:55 Completed US gall bladder [id number] Urgent Ultrasound 01/08/22 10:54 Completed Pending at discharge Category Date Time Status Blood Culture Stat Lab 01/10/22 14:36 Results Radiology Impressions Gallbladder Ultrasound 01/08/22 10:54 IMPRESSION: 1. No acute sonographic findings. 2. Additional findings, as above. Abdomen/Pelvis CT 01/08/22 10:55 IMPRESSION: 1. Acute pancreatitis, as described above. Correlate with serum amylase and lipase levels. No necrosis or hemorrhage. 2. Unchanged complex cystic lesion along the posterosuperior margin of the pancreatic tail, measuring approximately 2 x 1.9 cm, possibly a pseudocyst. 3. Additional findings, as above. Laboratory Results WBC 7.6 10^3/uL (4.0-10.0) 01/12/22 05:31 Corrected WBC Cancelled 01/09/22 05:24 RBC 3.93 10^6/uL (4.1-5.3) L 01/12/22 05:31 Hgb 12.7 g/dL (11.7-16.6) 01/12/22 05:31 Hct 38.0 % (42.0-52.0) L 01/12/22 05:31 MCV 96.7 fl (80-94) H 01/12/22 05:31 MCH 32.3 pg (28.0-34.0) 01/12/22 05:31 MCHC 33.4 g/dL (30.0-36.0) 01/12/22 05:31 RDW 13.1 % (12.1-15.1) 01/12/22 05:31 Plt Count 135 10^3/cmm (130-400) 01/12/22 05:31 MPV 10.7 fL (7.4-10.4) H 01/12/22 05:31 Gran % Cancelled 01/09/22 05:24 Neut % (Auto) 73.9 % 01/12/22 05:31 Lymph % (Auto) 14.5 % 01/12/22 05:31 [place] % (Auto) 9.1 % 01/12/22 05:31 Eos % (Auto) 1.8 % 01/12/22 05:31 Baso % (Auto) 0.4 % 01/12/22 05:31 Neut # (Auto) 5.61 10^3/uL (1.8-7.7) 01/12/22 05:31 Lymph # (Auto) 1.1 10^3/uL (0.8-4.8) 01/12/22 05:31 [place] # (Auto) 0.7 10^3/uL (0.2-0.9) 01/12/22 05:31 Eos # (Auto) 0.1 10^3/uL (0.0-0.8) 01/12/22 05:31 Baso # (Auto) 0.0 10^3/uL (0.0-0.1) 01/12/22 05:31 Absolute Gran (auto) Cancelled 01/09/22 05:24 Nucleated RBC % (auto) 0 % 01/12/22 05:31 Nucleated RBCs # 0.0 /100WBC 01/12/22 05:31 Sodium 137 mmol/L (136-145) 01/12/22 09:30 Potassium 3.5 mmol/L (3.5-5.1) 01/12/22 09:30 Chloride 103 mmol/L (98-107) 01/12/22 09:30 Carbon Dioxide 20 mmol/L (22-29) L 01/12/22 09:30 Anion Gap 17.5 (5-19) 01/12/22 09:30 BUN 9 mg/dL (6-20) 01/12/22 09:30 Creatinine 0.7 mg/dL (0.7-1.2) 01/12/22 09:30 GFR Calculation 131.5 mL/min (90-130) H 01/12/22 09:30 Glucose 92 mg/dL (65-115) 01/12/22 09:30 Calculated Osmolality 282 mOsm/kg (285-295) L 01/12/22 09:30 Lactic Acid 3.3 mmol/L (0.5-2.2) H 01/08/22 10:39 Lactic Acid (Sepsis) 2.0 mmol/L (0.5-2.2) 01/08/22 13:42 Calcium 9.0 mg/dL (8.5-10.5) 01/12/22 09:30 Phosphorus 4.0 mg/dL (2.5-4.5) 01/12/22 09:30 Magnesium 1.9 mg/dL (1.7-2.3) 01/12/22 09:30 Total Bilirubin 0.6 mg/dL (0.15-1.2) 01/12/22 09:30 AST 27 U/L (0-40) 01/12/22 09:30 ALT 24 U/L (0-41) 01/12/22 09:30 Alkaline Phosphatase 79 IU/L (40-130) 01/12/22 09:30 C-Reactive Protein 116.7 mg/L (0.0-4.9) H 01/12/22 09:30 Total Protein 6.6 g/dL (6.6-8.7) 01/12/22 09:30 Albumin 3.6 g/dL (3.5-5.2) 01/12/22 09:30 Globulin 3.0 g/dL (1.3-4.6) 01/12/22 09:30 Triglycerides 200 mg/dL (0-150) H 01/08/22 10:39 Cholesterol 184 mg/dL (0-200) 01/08/22 10:39 LDL Cholesterol, Calc 70 mg/dL (50-129) 01/08/22 10:39 HDL Cholesterol 74 mg/dL (60-100) 01/08/22 10:39 LDL/HDL Ratio 0.95 RATIO (0.00-3.22) 01/08/22 10:39 Cholesterol/HDL Ratio 2.49 mg/dL (1.0-5.00) 01/08/22 10:39 Lipase 157 U/L (13-60) H 01/12/22 09:30 Urine Color Yellow (Yellow) 01/08/22 11:11 Urine Appearance Clear (CLEAR) 01/08/22 11:11 Urine pH 7 (5-7) 01/08/22 11:11 Ur Specific [place] 1.005 (1.005-1.030) 01/08/22 11:11 Urine Protein Neg (Negative) 01/08/22 11:11 Urine Glucose (UA) Norm (Normal) 01/08/22 11:11 Urine Ketones Negative (Negative) 01/08/22 11:11 Urine Blood Neg (Negative) 01/08/22 11:11 Urine Nitrate Negative (Negative) 01/08/22 11:11 Urine Bilirubin Neg (Negative) 01/08/22 11:11 Urine Urobilinogen Norm mg/dL (Negative) 01/08/22 11:11 Ur Leukocyte Esterase Negative (Negative) 01/08/22 11:11 Urine Opiates Screen Negative ng/mL (Negative) 01/08/22 11:11 Ur Barbiturates Screen Negative ng/mL (Negative) 01/08/22 11:11 Ur Phencyclidine Scrn Negative ng/mL (Negative) 01/08/22 11:11 Ur Amphetamines Screen Negative ng/mL (Negative) 01/08/22 11:11 U Benzodiazepines Scrn Negative ng/mL (Negative) 01/08/22 11:11 Urine Cocaine Screen Negative ng/mL (Negative) 01/08/22 11:11 U Marijuana (THC) Screen Negative ng/mL (Negative) 01/08/22 11:11 Vitals Last Vital Signs Temp 98.0 F 01/12/22 10:57 Pulse 81 01/12/22 10:57 Resp 18 01/12/22 10:57 BP 138/84 01/12/22 10:57 Pulse Ox 98 01/12/22 10:57 Discharge Plan Discharge Patient Disposition: Home Condition: Stable Prescriptions: Continued ondansetron HCl 8 mg tablet 8 mg PO Q8H PRN (Reason: nausea and vomiting) 30 Days Qty: 60 0RF sertraline 100 mg tablet 150 mg PO DAILY Qty: 45 5RF omeprazole 40 mg capsule,delayed release(DR/EC) 40 mg PO DAILY PRN (Reason: acid reflux) Qty: 30 3RF atorvastatin 40 mg tablet 40 mg PO DAILY Qty: 30 5RF trazodone 50 mg tablet See Rx Instructions .ROUTE .COMPLEX Qty: 30 5RF Dose Instruction: TAKE 1/2 TABLET BY MOUTH DAILY FOR SLEEP AND MENTAL HEALTH Rx Instructions: TAKE 1/2 TABLET BY MOUTH DAILY FOR SLEEP AND MENTAL HEALTH lisinopril 40 mg Tablet 40 mg PO QAM 0RF metoprolol succinate 100 mg tablet extended release 24 hr 50 mg PO DAILY 0RF Carafate 100 mg/mL suspension 1 g PO TID PRN (Reason: GERD) 0RF metoclopramide HCl [Reglan] 10 mg tablet 10 mg PO Q6H PRN (Reason: nausea and vomiting) Qty: 14 0RF Discharge Orders: Discharge Order (Routine); Ordered 01/12/22 Ordered By: Troy Hopson Referrals: Antonio Alvarado MD [Primary Care Provider] - 01/18/22 2:30 pm Discharge Diet: Advance as tolerated Discharge Activity: Resume usual activity Patient Instructions: Pancreatitis (GEN), Opioid Safety Discharge Attestations Time Spent in Discharge Care*: less than 30 min Quality Metrics Clinical Quality Measures [ No reported AMI, CVA or VTE this stay] Coding Level of Care Code Acute Chg FW DC note Diagnoses Acute pancreatitis K85.80 Acute pancreatitis complication: no infection or necrosis Pancreatitis type: other Hyperlipidemia E78.5 Anxiety and depression F41.9; F32.A
--- NOTE | 2022-01-12 11:13 | PC.NURSE ---
THIS NURSE CONTACTED PATIENT TO LET HIM KNOW DR. DOWNEY SENT A CLONIDINE PRESCRIPTION TO [facility] IN [place].
== END 2022-01-12 10:57 | disposition home or self-care (01) | DRG 440 ==
LOC: ER 13:40 → MEDSURG 14:00
PROVIDERS: Admitting Provider Family Medicine; Emergency Provider Physician Assistant; PCP Family Medicine Adult Medicine; Visit Provider Family Medicine
DX: K85.20 Alcohol induced acute pancreatitis without necrosis or infection (principal); F10.10 Alcohol abuse, uncomplicated; K76.0 Fatty (change of) liver, not elsewhere classified; I10 Essential (primary) hypertension; E78.5 Hyperlipidemia, unspecified; F41.8 Other specified anxiety disorders; K21.9 Gastro-esophageal reflux disease without esophagitis; F43.10 Post-traumatic stress disorder, unspecified
CPT/HCPCS: 36415; 74177; 76705; 80053; 80061; 80306; 81003; 83605; 83690; 83735; 84100; 85025; 86140; 87040; 96365; 96375; 99285; C9113; J1170; J1650; J2270; J2405; J2543; J2765; J3480; J7030; Q9967

== ENCOUNTER 2022-01-31 18:16 | Emergency (ER) | payer MEDICAID, SELFPAY ==
--- NOTE | 2022-01-31 18:36 | W.ED.ALCOHOL ---
HPI - Alcohol General: Chief Complaint: Abdominal Pain Stated Complaint: ETOH, ABD PAIN Time Seen by Provider: 01/31/22 18:27 Source: patient and EMS Mode of arrival: EMS Limitations: no limitations History of Present Illness: 31-year-old male who has a long history of alcoholism he states he has been drinking very heavily lately and is concerned he may have pancreatitis he states that he did have pancreatitis a month ago and had to be admitted and states that since has been home and he has been drinking very heavily patient is quite intoxicated here states that he is going through a divorce causing him to drink more he denies any suicidality or homicidality at this time. Associated symptoms: Reports abdominal pain; Deny depression Review of Systems Const: Denies: fever(s), chills, body aches or change in appetite Eyes: Denies: blurry vision or eye discomfort ENMT: Denies: throat pain or dental pain Card: Denies: chest pain Resp: Denies: dyspnea GI: Reports: abdominal pain : Denies: dysuria Musc: Denies: neck pain or back pain Skin/Breast: Denies: rash Neuro: Denies: headache(s) Psych: Denies: depression Kris/Lymph: Denies: easy bruising All/Imm: Denies: urticaria PFSH ED PFSH: Medical History Acute posttraumatic stress disorder Alcohol abuse Anxiety and depression Generalized anxiety disorder with panic attacks GERD (gastroesophageal reflux disease) Hyperlipidemia Hypertension Insomnia Pancreatitis, acute Psychiatric care Surgical History No pertinent past surgical history Family History Father Hypertension Social History Smoking and tobacco status: never smoked Alcohol intake: current Alcohol intake frequency: 0-2 Drinks per Day Marital status: Number of children: 5 Current occupational status: employed Current gender identity: Male Physical Exam Const: COMMON NORMALS: patient oriented x3 GENERAL APPEARANCE: odor of alcohol detected HENMT: COMMON NORMALS: normocephalic and atraumatic HEAD & SCALP: normocephalic and atraumatic Eye: COMMON NORMALS: Equal, round and reactive pupils present and EOMs intact bilaterally PUPIL: Yes Equal, round and reactive pupils present Neck/C-Spine: COMMON NORMALS: full ROM and supple Chest: COMMONS NORMALS: normal inspection of the chest and normal palpation of entire chest wall Resp: COMMON NORMALS: normal respiratory effort, No retractions, No use of accessory muscles and clear to auscultation bilaterally AUSCULTATION: clear to auscultation bilaterally Cardio: COMMON NORMALS: regular rate, regular rhythm and No murmurs present (Cardio) RATE: regular rate RHYTHM: regular rhythm GI: COMMON NORMALS: Normal to inspection, nondistended, normoactive bowel sounds present, Soft to palpation, non-tender and no masses PALPATION: Yes Soft to palpation Extremity: COMMON NORMALS: normal to inspection and full ROM Neuro: COMMON NORMALS: patient oriented x3, moves all extremities and no focal motor deficits Psych: COMMON NORMALS: mental status grossly normal, Normal thought process present and cooperative THOUGHT PROCESS: Normal thought process present Skin: COMMON NORMALS: no rashes or lesions noted and no wounds GENERAL SKIN EXAM: no rashes or lesions noted Course Vital Signs: Vital signs: Vital Signs Pulse Rate 90 01/31/22 21:17 Respiratory Rate 16 01/31/22 21:17 Blood Pressure 165/95 01/31/22 21:17 Pulse Oximetry 96 01/31/22 19:19 MDM - Alcohol Medical Decision Making Patient presents here with some abdominal pain 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 Lab Data : 01/31/22 19:37 01/31/22 19:37 Laboratory Results WBC 4.4 10^3/uL (4.0-10.0) 01/31/22 19:37 RBC 4.49 10^6/uL (4.1-5.3) 01/31/22 19:37 Hgb 14.3 g/dL (11.7-16.6) 01/31/22 19:37 Hct 41.9 % (42.0-52.0) L 01/31/22 19:37 MCV 93.3 fl (80-94) 01/31/22 19:37 MCH 31.8 pg (28.0-34.0) 01/31/22 19:37 MCHC 34.1 g/dL (30.0-36.0) 01/31/22 19:37 RDW 12.6 % (12.1-15.1) 01/31/22 19:37 Plt Count 259 10^3/cmm (130-400) 01/31/22 19:37 MPV 9.9 fL (7.4-10.4) 01/31/22 19:37 Neut % (Auto) 69.7 % 01/31/22 19:37 Lymph % (Auto) 23.5 % 01/31/22 19:37 [place] % (Auto) 6.1 % 01/31/22 19:37 Eos % (Auto) 0.0 % 01/31/22 19:37 Baso % (Auto) 0.5 % 01/31/22 19:37 Neut # (Auto) 3.09 10^3/uL (1.8-7.7) 01/31/22 19:37 Lymph # (Auto) 1.0 10^3/uL (0.8-4.8) 01/31/22 19:37 [place] # (Auto) 0.3 10^3/uL (0.2-0.9) 01/31/22 19:37 Eos # (Auto) 0.0 10^3/uL (0.0-0.8) 01/31/22 19:37 Baso # (Auto) 0.0 10^3/uL (0.0-0.1) 01/31/22 19:37 Nucleated RBC % (auto) 0 % 01/31/22 19:37 Nucleated RBCs # 0.0 /100WBC 01/31/22 19:37 Sodium 141 mmol/L (136-145) 01/31/22 19:37 Potassium 3.6 mmol/L (3.5-5.1) 01/31/22 19:37 Chloride 105 mmol/L (98-107) 01/31/22 19:37 Carbon Dioxide 16 mmol/L (22-29) L 01/31/22 19:37 Anion Gap 23.6 (5-19) H 01/31/22 19:37 BUN 10 mg/dL (6-20) 01/31/22 19:37 Creatinine 0.5 mg/dL (0.7-1.2) L 01/31/22 19:37 GFR Calculation 193.9 mL/min (90-130) H 01/31/22 19:37 Glucose 116 mg/dL (65-115) H 01/31/22 19:37 Calculated Osmolality 292 mOsm/kg (285-295) 01/31/22 19:37 Calcium 6.5 mg/dL (8.5-10.5) L 01/31/22 19:37 Total Bilirubin 0.4 mg/dL (0.15-1.2) 01/31/22 19:37 AST 32 U/L (0-40) 01/31/22 19:37 ALT 44 U/L (0-41) H 01/31/22 19:37 Alkaline Phosphatase 87 IU/L (40-130) 01/31/22 19:37 Total Protein 6.0 g/dL (6.6-8.7) L 01/31/22 19:37 Albumin 3.9 g/dL (3.5-5.2) 01/31/22 19:37 Globulin 2.1 g/dL (1.3-4.6) 01/31/22 19:37 Lipase 59 U/L (13-60) 01/31/22 19:37 Salicylates < 0.3 mg/dL (3-10) L 01/31/22 19:37 Acetaminophen < 5.0 ug/mL (10-30) L 01/31/22 19:37 Ethyl Alcohol 277 mg/dL (0-10) H 01/31/22 19:37 Discharge Plan Discharge Patient Disposition: Home Clinical Impression: Alcohol abuse Abdominal pain Qualifiers: Abdominal location: epigastric Qualified Code(s): R10.13 - Epigastric pain Condition: Stable Prescriptions: No Action ondansetron HCl 8 mg tablet 8 mg PO Q8H PRN (Reason: nausea and vomiting) 30 Days Qty: 60 0RF omeprazole 40 mg capsule,delayed release(DR/EC) 40 mg PO DAILY PRN (Reason: acid reflux) Qty: 30 3RF digestive enzymes Tablet 1 tab PO DAILY 0RF resveratrol 250 mg capsule PO 0RF mirtazapine [Remeron] 15 mg tablet 15 mg PO .qhs Qty: 30 0RF atorvastatin 40 mg tablet 40 mg PO DAILY Qty: 30 5RF trazodone 50 mg tablet See Rx Instructions .ROUTE .COMPLEX Qty: 30 5RF Dose Instruction: TAKE 1/2 TABLET BY MOUTH DAILY FOR SLEEP AND MENTAL HEALTH Rx Instructions: TAKE 1/2 TABLET BY MOUTH DAILY FOR SLEEP AND MENTAL HEALTH lisinopril 40 mg Tablet 40 mg PO QAM 0RF metoprolol succinate 100 mg tablet extended release 24 hr 50 mg PO DAILY 0RF Carafate 100 mg/mL suspension 1 g PO TID PRN (Reason: GERD) 0RF clonidine HCl 0.1 mg tablet 0.1 mg PO BID 30 Days Qty: 60 0RF metoclopramide HCl [Reglan] 10 mg tablet 10 mg PO Q6H PRN (Reason: nausea and vomiting) Qty: 14 0RF Discharge Orders: Discharge ED (Routine); Ordered 01/31/22 Ordered By: Yamil Sharif Referrals: Antonio Alvarado MD [Primary Care Provider] - 1-3 days Discharge Diet: Advance as tolerated Discharge Activity: Resume usual activity Patient Instructions: Abdominal Pain (ED) Coding Level of Care Code ED 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
[2022-01-31 19:19] VITALS: BP 159/95; PULSE 117; RESP 24; O2SAT 96; BMI 32.5
[2022-01-31 19:43] LABS: Basophils % 0.5 %; Hematocrit 41.9 % (42.0-52.0); Hemoglobin 14.3 g/dL (11.7-16.6); Lymphocytes % 23.5 %; Mean Corpuscular HGB Conc 34.1 g/dL (30.0-36.0); Mean Corpuscular Hemoglobin 31.8 pg (28.0-34.0); Mean Corpuscular Volume 93.3 fl (80-94); Mean Platelet Volume 9.9 fL (7.4-10.4); Monocytes # 0.3 10^3/uL (0.2-0.9); Monocytes % 6.1 %; Neutrophils # 3.09 10^3/uL (1.8-7.7); Neutrophils % 69.7 %; Nucleated Red Blood Cells % 0 %; Platelet Count 259 10^3/cmm (130-400); Red Blood Count 4.49 10^6/uL (4.1-5.3); Red Cell Distribution Width 12.6 % (12.1-15.1); White Blood Count 4.4 10^3/uL (4.0-10.0)
[2022-01-31] MEDS: sodium chloride 0.9% 1,000 ML 999 ML IV (20:05)
[2022-01-31] MEDS: ondansetron 2 mg/ML SDV 2 mL 4 MG IVP (20:05)
[2022-01-31 20:06] LABS: Alanine Aminotransferase 44 U/L (0-41); Albumin Level 3.9 g/dL (3.5-5.2); Alcohol Level 277 mg/dL (0-10); Alkaline Phosphatase 87 IU/L (40-130); Anion Gap 23.6 (5-19); Aspartate Amino Transferase 32 U/L (0-40); Blood Urea Nitrogen 10 mg/dL (6-20); Calcium 6.5 mg/dL (8.5-10.5); Carbon Dioxide 16 mmol/L (22-29); Chloride 105 mmol/L (98-107); Globulin 2.1 g/dL (1.3-4.6); Glomerular Filtration Rate 193.9 mL/min (90-130); Glucose 116 mg/dL (65-115); Lipase 59 U/L (13-60); Osmolality Calculated 292 mOsm/kg (285-295); Potassium 3.6 mmol/L (3.5-5.1); Sodium 141 mmol/L (136-145); Total Bilirubin 0.4 mg/dL (0.15-1.2)
[2022-01-31 20:09] LABS: Acetaminophen < 5.0 ug/mL (10-30); Salicylate < 0.3 mg/dL (3-10)
[2022-01-31 21:17] VITALS: BP 165/95; PULSE 90; RESP 16
[2022-01-31] MEDS: pantoprazole DR 40 mg Tablet PO (21:18)
== END 2022-01-31 21:40 | disposition home or self-care (01) ==
PROVIDERS: Emergency Provider Emergency Medicine; PCP Family Medicine Adult Medicine
DX: F10.129 Alcohol abuse with intoxication, unspecified (principal); Y90.9 Presence of alcohol in blood, level not specified; Z79.891 Long term (current) use of opiate analgesic
CPT/HCPCS: 80053; 80307; 83690; 85025; 96361; 96374; 99284; J2405; J3411; J7030

== ENCOUNTER → 2022-02-04 10:54 | Outpatient (BNVA) | payer MEDICAID, SELFPAY | PROVIDERS: PCP Family Medicine Adult Medicine; Visit Provider Psychiatry & Neurology Psychiatry | DX: F41.1 Generalized anxiety disorder (principal); F41.0 Panic disorder [episodic paroxysmal anxiety]; K85.90 Acute pancreatitis without necrosis or infection, unspecified; F10.10 Alcohol abuse, uncomplicated | CPT/HCPCS: 99214 ==

== ENCOUNTER 2022-02-27 17:11 | Emergency (ER) | payer MEDICAID, SELFPAY ==
[2022-02-27 17:41] VITALS: BP 153/96; PULSE 122; RESP 18; TEMP 36.9; O2SAT 97; BMI 32.5
--- NOTE | 2022-02-27 18:02 | W.ED.ABDPA2 ---
HPI - Abdominal Pain General: Chief Complaint: Abdominal Pain Stated Complaint: black stool, blood in bile Time Seen by Provider: 02/27/22 17:47 Source: patient and family Mode of arrival: ambulatory Limitations: no limitations History of Present Illness: This patient returns to the emergency department because he thinks he is having a flareup of his pancreatitis. He has a history of recurrent pancreatitis. He states that he ate a meal of pasta with all of oil and tomatoes last evening and has had abdominal pains and vomiting since that time. His who is present with him today ate the same meal and is not affected. He does finally admit that he has drank a couple of days prior but not heavily. He states that he is thought he might of had a dark stool today and that is unusual for him. He states he is not having vomiting of blood but did have bilious vomiting. He had similar symptoms in the past. He states there is some lightheadedness when he stands and moves around but is not had any syncope, palpitations, chest pain etc. He states the pain is predominantly epigastric to just above his umbilicus. He states that at times he feels like he has pain that radiates all over his abdomen. States has been urinating relatively normal. No fevers no chills no other constitutional symptoms. Severity: similar to previous episodes Quality: cramping, stabbing and sharp Radiation: epigastric Exacerbating factors: eating Relieving factors: nothing Context: history of similar episodes Associated Symptoms: Reports melena; Denies chills, coffee ground emesis, dysuria, fever(s), hematochezia, hematemesis and syncope Review of Systems Const: Denies: fever(s), chills or body aches Eyes: Denies: change in vision or blurry vision ENMT: Denies: throat pain or odynophagia Card: Denies: chest pain, palpitations, irregular heart rhythm or syncope Resp: Denies: dyspnea, productive cough or non-productive cough GI: Reports: abdominal pain and melena; Denies: hematemesis, coffee ground emesis or hematochezia : Denies: flank pain, difficulty urinating, dysuria or urinary frequency Musc: Denies: neck pain, back pain, extremity pain or extremity swelling Skin/Breast: Denies: rash or pruritus Neuro: Denies: headache(s), numbness in extremities or weakness in extremities Psych: Denies: anxiety or depression PFSH ED PFSH: Medical History Acute posttraumatic stress disorder Alcohol abuse Anxiety and depression Generalized anxiety disorder with panic attacks GERD (gastroesophageal reflux disease) Hyperlipidemia Hypertension Insomnia Pancreatitis, acute Psychiatric care Surgical History No pertinent past surgical history Family History Father Hypertension Social History Smoking and tobacco status: never smoked Alcohol intake: current Alcohol intake frequency: 0-2 Drinks per Day Marital status: Number of children: 5 Current occupational status: employed Current gender identity: Male Physical Exam Narrative: EXAM NARRATIVE: Patient makes good eye contact. He is quite descriptive in his interaction regarding his symptoms. Const: COMMON NORMALS: no acute distress and patient oriented x3 GENERAL APPEARANCE: cooperative NUTRITIONAL APPEARANCE: overweight HENMT: COMMON NORMALS: normocephalic, atraumatic, Normal nasal mucous membranes and turbinates present and moist oral mucous membranes HEAD & SCALP: normocephalic and atraumatic NOSE: Normal nasal mucous membranes and turbinates present Eye: COMMON NORMALS: Equal, round and reactive pupils present, EOMs intact bilaterally, conjunctivae normal and no scleral icterus CONJUNCTIVA: Yes conjunctivae normal PUPIL: Yes Equal, round and reactive pupils present Neck/C-Spine: COMMON NORMALS: full ROM, no lymphadenopathy and supple Chest: COMMONS NORMALS: normal inspection of the chest and normal palpation of entire chest wall Resp: COMMON NORMALS: normal respiratory effort, No retractions, No use of accessory muscles and clear to auscultation bilaterally AUSCULTATION: clear to auscultation bilaterally Cardio: COMMON NORMALS: regular rate, regular rhythm, No murmurs present (Cardio) and Peripheral pulses 2+ throughout RATE: regular rate RHYTHM: regular rhythm PERIPHERAL PULSES: Peripheral pulses 2+ throughout GI: COMMON NORMALS: Normal to inspection, nondistended, normoactive bowel sounds present, Soft to palpation and no masses AUSCULTATION: Yes normoactive bowel sounds PALPATION: Yes Soft to palpation, Yes Tenderness to palpation present (GI) (Epigastric), No Ascites present and No Rebound tenderness present : COMMON NORMALS: Yes no CVA tenderness BLADDER/KIDNEY EXAM: Yes no CVA tenderness Back/Pelvis: COMMON NORMALS: no CVA tenderness, thoracic and lumbar spine normal to inspection, no thoracic nor lumbar tenderness and thoraco-lumbar ROM normal Extremity: COMMON NORMALS: normal to inspection, full ROM, capillary refill normal, no calf tenderness and no pedal edema Neuro: COMMON NORMALS: patient oriented x3 and moves all extremities CRANIAL NERVES: Yes CN normal except as noted Psych: COMMON NORMALS: cooperative, normal affect and speech normal SPEECH: Yes normal speech Skin: COMMON NORMALS: no rashes or lesions noted and turgor normal GENERAL SKIN EXAM: no rashes or lesions noted and turgor normal Course Reevaluation(s): Reevaluation #1: Patient clinically improved. No emesis while in the emergency department. We reviewed his labs and as many times seen with chronic pancreatitis his lipase is not necessarily passenger service representative of his subjective pain. His sodium is low and we have discussed that as well. He admits to drinking a lot of water and whether or not that is a contributing factor is not clear. He does relate that he usually takes clonidine both morning and night has not taken his evening clonidine. He is concerned little bit about his blood pressure although has not were recently elevated. We will go ahead and give him his evening dose of clonidine as it may have a secondary benefit of reducing his underlying anxiety. He also takes a long-acting beta-vinay and because of his repetitive emesis today may or may not have absorbed that medication. At this point I have no findings to suggest a ongoing emergency medical condition just an exacerbation of his chronic pancreatitis. I reiterated the need to avoid any inciting and irritating substances particularly alcohol to his pancreas. He has had multiple recurrence of similar symptoms and has been seen many times in this emergency department for similar presentations. Do not feel that additional work-up or imaging is indicated at this time. Time: 21:30 Reevaluation #2: Remained stable blood pressure is improved. He states he is at the point he would like to be discharged home. I think we will give him a single dose of anxiolytic prior to discharge as I think he is probably drinking more than he admits to. Again no evidence at this time of other worrisome condition. Time: 22:32 Vital Signs: Vital signs: Vital Signs Temperature 98.5 F 05/22/22 17:41 Pulse Rate 108 H 02/27/22 19:46 Respiratory Rate 16 02/27/22 19:46 Blood Pressure 157/81 02/27/22 19:46 Pulse Oximetry 98 02/27/22 19:46 MDM - Abdominal Pain Medical Decision Making Patient with history of chronic pancreatitis comes in with abdominal pain consistent with his prior presentations. He does admit to drinking alcohol in the last few days as well. Other than a borderline low sodium has no other worrisome findings on his laboratories today. He was hydrated and given antiemetics and his evening clonidine. No other concerns at this time that require further observation and inpatient care. He is currently clinically stable without any evidence of surgical abdomen or other concerns that would require further intervention and she can be managed as an outpatient with his usual medications. Medical Records I reviewed the patient's medical records. Lab Data I reviewed the patient's lab results. : 02/27/22 18:05 02/27/22 18:05 Labs/Radiology: Laboratory Results WBC 15.4 10^3/uL (4.0-10.0) H 02/27/22 18:05 RBC 5.58 10^6/uL (4.1-5.3) H 02/27/22 18:05 Hgb 17.7 g/dL (11.7-16.6) H 02/27/22 18:05 Hct 49.8 % (42.0-52.0) 02/27/22 18:05 MCV 89.2 fl (80-94) 02/27/22 18:05 MCH 31.7 pg (28.0-34.0) 02/27/22 18:05 MCHC 35.5 g/dL (30.0-36.0) 02/27/22 18:05 RDW 12.5 % (12.1-15.1) 02/27/22 18:05 Plt Count 285 10^3/cmm (130-400) 02/27/22 18:05 MPV 9.7 fL (7.4-10.4) 02/27/22 18:05 Neut % (Auto) 76.7 % 02/27/22 18:05 Lymph % (Auto) 15.8 % 02/27/22 18:05 [place] % (Auto) 6.3 % 02/27/22 18:05 Eos % (Auto) 0.2 % 02/27/22 18:05 Baso % (Auto) 0.7 % 02/27/22 18:05 Neut # (Auto) 11.80 10^3/uL (1.8-7.7) H 02/27/22 18:05 Lymph # (Auto) 2.4 10^3/uL (0.8-4.8) 02/27/22 18:05 [place] # (Auto) 1.0 10^3/uL (0.2-0.9) H 02/27/22 18:05 Eos # (Auto) 0.0 10^3/uL (0.0-0.8) 02/27/22 18:05 Baso # (Auto) 0.1 10^3/uL (0.0-0.1) 02/27/22 18:05 Nucleated RBC % (auto) 0 % 02/27/22 18:05 Nucleated RBCs # 0.0 /100WBC 02/27/22 18:05 PT 12.90 SECONDS (12.1-14.9) 02/27/22 18:05 INR 0.94 (0.8-1.2) 02/27/22 18:05 Sodium 126 mmol/L (136-145) L 02/27/22 18:05 Potassium 4.9 mmol/L (3.5-5.1) 02/27/22 18:05 Chloride 88 mmol/L (98-107) L 02/27/22 18:05 Carbon Dioxide 20 mmol/L (22-29) L 02/27/22 18:05 Anion Gap 22.9 (5-19) H 02/27/22 18:05 BUN 15 mg/dL (6-20) 02/27/22 18:05 Creatinine 0.7 mg/dL (0.7-1.2) 02/27/22 18:05 GFR Calculation 131.5 mL/min (90-130) H 02/27/22 18:05 Glucose 112 mg/dL (65-115) 02/27/22 18:05 Calculated Osmolality 264 mOsm/kg (285-295) L 02/27/22 18:05 Calcium 8.8 mg/dL (8.5-10.5) 02/27/22 18:05 Total Bilirubin 1.8 mg/dL (0.15-1.2) H 02/27/22 18:05 AST 75 U/L (0-40) H 02/27/22 18:05 ALT 59 U/L (0-41) H 02/27/22 18:05 Alkaline Phosphatase 114 IU/L (40-130) 02/27/22 18:05 Total Protein 7.6 g/dL (6.6-8.7) 02/27/22 18:05 Albumin 4.8 g/dL (3.5-5.2) 02/27/22 18:05 Globulin 2.8 g/dL (1.3-4.6) 02/27/22 18:05 Lipase 141 U/L (13-60) H 02/27/22 18:05 Blood Type O Positive 02/27/22 18:05 Rho(D) Type Positive 02/27/22 18:05 Antibody Screen Negative 02/27/22 18:05 Discharge Plan Discharge Patient Disposition: Home Clinical Impression: Chronic pancreatitis, Alcohol abuse Condition: Stable Prescriptions: No Action digestive enzymes Tablet 1 tab PO DAILY 0RF resveratrol 250 mg capsule PO 0RF omeprazole 40 mg capsule,delayed release(DR/EC) 40 mg PO DAILY PRN (Reason: acid reflux) Qty: 30 3RF atorvastatin 40 mg tablet 40 mg PO DAILY Qty: 30 5RF ondansetron HCl 8 mg tablet 8 mg PO Q8H PRN (Reason: nausea and vomiting) 30 Days Qty: 60 0RF trazodone 50 mg tablet See Rx Instructions .ROUTE .COMPLEX Qty: 30 5RF Dose Instruction: TAKE 1/2 TABLET BY MOUTH DAILY FOR SLEEP AND MENTAL HEALTH Rx Instructions: TAKE 1/2 TABLET BY MOUTH DAILY FOR SLEEP AND MENTAL HEALTH mirtazapine 15 mg tablet See Rx Instructions .ROUTE .COMPLEX Qty: 30 5RF Dose Instruction: TAKE 1 TABLET BY MOUTH EVERY NIGHT AT BEDTIME FOR MENTAL HEALTH Rx Instructions: TAKE 1 TABLET BY MOUTH EVERY NIGHT AT BEDTIME FOR MENTAL HEALTH lisinopril 40 mg Tablet 40 mg PO QAM 0RF metoprolol succinate 100 mg tablet extended release 24 hr 100 mg PO DAILY 0RF Carafate 100 mg/mL suspension 1 g PO TID PRN (Reason: GERD) 0RF metoclopramide HCl [Reglan] 10 mg tablet 10 mg PO Q6H PRN (Reason: nausea and vomiting) Qty: 14 0RF Discharge Orders: Discharge ED (Routine); Ordered 02/27/22 Ordered By: Chas Ohara Referrals: Antonio Alvarado MD [Primary Care Provider] - Discharge Diet: Usual diet Discharge Activity: Increase activity as tolerated Patient Instructions: Opioid Safety Activity Restrictions/Additional Instructions: Absolutely do not drink alcohol under any circumstances. Take all your prescribed medications. Contact your primary care doctor for follow-up and discussion on medication adjustments. If you have any persistent worsening or new symptoms you are welcome to return to the emergency department at any time. Coding Level of Care Code ED Biomedical Engineering Supervisor for Al Fwd Exam Comprehensive
[2022-02-27 18:16] LABS: Basophils # 0.1 10^3/uL (0.0-0.1); Basophils % 0.7 %; Eosinophils % 0.2 %; Hematocrit 49.8 % (42.0-52.0); Hemoglobin 17.7 g/dL (11.7-16.6); Lymphocytes # 2.4 10^3/uL (0.8-4.8); Lymphocytes % 15.8 %; Mean Corpuscular HGB Conc 35.5 g/dL (30.0-36.0); Mean Corpuscular Hemoglobin 31.7 pg (28.0-34.0); Mean Corpuscular Volume 89.2 fl (80-94); Mean Platelet Volume 9.7 fL (7.4-10.4); Monocytes % 6.3 %; Neutrophils % 76.7 %; Nucleated Red Blood Cells % 0 %; Platelet Count 285 10^3/cmm (130-400); Red Blood Count 5.58 10^6/uL (4.1-5.3); Red Cell Distribution Width 12.5 % (12.1-15.1); White Blood Count 15.4 10^3/uL (4.0-10.0)
[2022-02-27 18:27] LABS: INR 0.94 (0.8-1.2)
[2022-02-27 18:32] LABS: Albumin Level 4.8 g/dL (3.5-5.2); Alkaline Phosphatase 114 IU/L (40-130); Blood Urea Nitrogen 15 mg/dL (6-20); Calcium 8.8 mg/dL (8.5-10.5); Carbon Dioxide 20 mmol/L (22-29); Chloride 88 mmol/L (98-107); Globulin 2.8 g/dL (1.3-4.6); Glomerular Filtration Rate 131.5 mL/min (90-130); Glucose 112 mg/dL (65-115); Lipase 141 U/L (13-60); Osmolality Calculated 264 mOsm/kg (285-295); Sodium 126 mmol/L (136-145); Total Bilirubin 1.8 mg/dL (0.15-1.2); Total Protein 7.6 g/dL (6.6-8.7)
[2022-02-27 18:36] LABS: Alanine Aminotransferase 59 U/L (0-41); Anion Gap 22.9 (5-19); Aspartate Amino Transferase 75 U/L (0-40); Potassium 4.9 mmol/L (3.5-5.1)
[2022-02-27] MEDS: sodium chloride 0.9% 1,000 ML 999 ML IV (18:48)
[2022-02-27] MEDS: diphenhydrAMINE 50 mg/mL SDV 1mL 12.5 MG IVP (18:49)
[2022-02-27] MEDS: haloperidol inj 5 mg/mL INJ 1 mL IVP (18:49)
[2022-02-27] MEDS: metoclopramide 5 mg/mL SDV 2 mL 10 MG IVP (19:32)
[2022-02-27 19:46] VITALS: BP 157/81; PULSE 108; RESP 16; O2SAT 98
[2022-02-27] MEDS: famotidine 20 mg/2 mL INJ 40 MG IVP (20:22)
[2022-02-27] MEDS: HYDROmorphone 1 mg/mL INJ 1 mL IVP (20:33)
[2022-02-27] MEDS: cloNIDine 0.1 mg Tablet PO (21:55)
[2022-02-27] MEDS: LORazepam 2 mg/mL INJ 1 mL 1 MG IVP (22:39)
[2022-02-27 22:45] VITALS: BP 135/91; PULSE 109; RESP 16; O2SAT 94
== END 2022-02-27 22:46 | disposition home or self-care (01) ==
PROVIDERS: Emergency Medicine; Emergency Provider Emergency Medicine; PCP Family Medicine Adult Medicine
DX: K86.0 Alcohol-induced chronic pancreatitis (principal); F10.10 Alcohol abuse, uncomplicated
CPT/HCPCS: 80053; 83690; 85025; 85610; 86850; 86900; 96361; 96374; 96375; 99284; J1170; J1200; J1630; J2060; J2765; J3490; J7030

== ENCOUNTER 2022-05-04 09:03 | Inpatient (IN) | payer MEDICAID, SELFPAY ==
[2022-05-04] VITALS (18 sets, daily range): BP systolic 132–166; BP diastolic 86–118; PULSE 98–129; RESP 18–25; TEMP 36.7–37.6; O2SAT 95–99; BMI 31.1
--- NOTE | 2022-05-04 09:11 | CT_ITS ---
WS: [id number] CT ABDOMEN AND PELVIS NONCONTRAST HISTORY: Abdominal pain TECHNIQUE: Imaging performed through the abdomen and pelvis. Coronal and sagittal reformats are submi tted. All CT scans at [facility] use at least one of these dose optimization techniques: auto mated exposure control; mA and/or kV adjustment per patient size (includes targeted exams where dose is matched to clinical indication); or iterative reconstruction. DLP: 921.83 mGy.cm COMPARISON: 01/08/2022, 12/23/2021 Lower thorax: Lung bases are clear. Visualized heart is normal. No hiatal hernia. Liver: Marked diffuse low-attenuation from hepatic steatosis. 2.1 x 1.6 cm nodule of increased densit y in the inferior RIGHT lobe of the liver has been previously described. On prior contrast studies th is was thought to be a hemangioma. No increase in size. The background of hepatic steatosis has marke dly progressed over the last several years. Liver is also markedly enlarged. Mild inflammation surrou nding the portal vein. Gallbladder: Normal gallbladder. Pancreas: Pancreas is enlarged and edematous. Peripancreatic fluid and inflammation with progression since 01/08/2022. The small fluid collection associated with the distal pancreas has changed in appeara nce and this may been a small pancreatic pseudocyst. Spleen: Normal. Adrenal glands: Normal. No mass. Right kidney: Normal size kidney with no mass or hydronephrosis. Left kidney: Normal size kidney with no mass or hydronephrosis. Aorta: Normal abdominal aorta, no aneurysm or atherosclerosis. No free fluid, intraperitoneal air or significant lymphadenopathy. GI tract: Normal appendix. No GI tract obstruction or diverticulosis.. Pancreas and inflammation exte nds to involve the duodenal C-loop. Abdominal wall: Small umbilical hernia contains fat only. Pelvis: No free fluid. Moderately distended urinary bladder. Osseous structures: Unremarkable. CT/CT abdomen pelvis wo con [id number] IMPRESSION: 1. Moderate acute pancreatitis. Progressed since 01/08/2022. No well formed pseu docyst but there is inflammation with free fluid surrounding the pancreas and t he duodenal C-loop. 2. Marked hepatic steatosis and hepatomegaly. The liver has increased in size and hepatic steatosis since 2019. 3. Hyperattenuating lesion in the RIGHT lobe of the liver has been previously described and described as a hemangioma on prior imaging studies. 4. Normal appendix.
--- NOTE | 2022-05-04 09:12 | ED_ITS ---
HPI - Abdominal Pain General: Chief Complaint: Abdominal Pain Stated Complaint: ABD PAIN Time Seen by Provider: 05/04/22 09:04 Source: patient Mode of arrival: EMS Limitations: no limitations History of Present Illness: 31-year-old male presents emergency room complaining of severe left upper quadrant abdominal pain. He has had episodes of pancreatitis. Alcohol use in the past. He states he was drinking started had some wine he actually states the abdominal pain began before he drank the wine. He is out by drinking He would make it better. Unfortunately for him it actually worsened his sympto ms significantly. Presents complaining of severe pain in the left upper quadrant Juan M has had in the past lots of bilious vomiting but no hematemesis or coffee-ground emesis. Denies any medic easier melena no dysuria urgency or frequency has not had any fever cough or shortness of breath recently no chest pain. MD elicited complaint: abdominal pain Pertinent past history: other (Pancreatitis, alcohol abuse) Onset (ago): day(s) Pain Consistency: constant Location: Epigastric and LUQ Quality: cramping Radiation: none Migration to: LUQ Exacerbating factors: eating Relieving factors: nothing Associated Symptoms: Reports belching, GI cramping, dyspepsia and nausea; Denies anorexia, bloating, change in bowel habits, change in stool character, chills, coffee ground emesis, constipation, diarrhea, dysuria, excessive flatus, fever(s), heartburn, hematochezia, hematuria, hematemesis, fecal incontinence, loose stools, melena, poor appetite, syncope and vomiting Review of Systems Const: Denies: fever(s), chills, body aches, change in appetite, fatigue or malaise ENMT: Denies: throat pain, ear or mastoid pain, nasal discharge or nasal congestion Card: Denies: chest pain, edema, syncope, dyspnea on exertion or orthopnea Resp: Denies: dyspnea, productive cough or non-productive cough GI: Reports: nausea, GI cramping and belching; Denies: abdominal pain, vomiting, hematemesis, coffee ground emesis, heartburn, diarrhea, constipation, bloating, excessive flatus, fecal incontinence, change in bowel habits, change in stool character, hematochezia or melena : Denies: flank pain, dysuria, urinary frequency, urinary urgency or hematuria Skin/Breast: Denies: rash or pruritus PFSH ED 2 PFSH: Medical History Acute posttraumatic stress disorder Alcohol abuse Anxiety and depression Generalized anxiety disorder with panic attacks GERD (gastroesophageal reflux disease) Hyperlipidemia Hypertension Insomnia Pancreatitis, acute Psychiatric care Surgical History No pertinent past surgical history Family History Father Hypertension Social History Smoking and tobacco status: never smoked Alcohol intake: current Alcohol intake frequency: 0-2 Drinks per Day Marital status: Number of children: 5 Current occupational status: employed Current gender identity: Male Physical Exam Const: COMMON NORMALS: no acute distress GENERAL APPEARANCE: cooperative and comfortable ORIENTATION/CONSCIOUSNESS: Yes awake, Yes oriented to person, Yes oriented to place and Yes oriented to time HENMT: COMMON NORMALS: normocephalic, atraumatic and hearing grossly normal bilaterally HEAD & SCALP: normocephalic and atraumatic Resp: COMMON NORMALS: normal respiratory effort, No retractions, No use of accessory muscles and clear to auscultation bilaterally AUSCULTATION: clear to auscultation bilaterally Cardio: COMMON NORMALS: regular rate, regular rhythm and No murmurs present (Cardio) RATE: regular rate RHYTHM: regular rhythm GI: COMMON NORMALS: No hepatosplenomegaly present AUSCULTATION: Yes normoactive bowel sounds PALPATION: Yes Tenderness to palpation present (GI) Details: RUQ, No Guarding due to palpation present (GI) and Yes No hepatosplenomegaly present : COMMON NORMALS: Yes no CVA tenderness BLADDER/KIDNEY EXAM: Yes no CVA tenderness Back/Pelvis: COMMON NORMALS: no CVA tenderness Extremity: COMMON NORMALS: normal to inspection, capillary refill normal, no clubbing, cyanosis or edema, no calf tenderness and no pedal edema Neuro: SENSORIUM/ORIENTATION: Yes oriented to person, Yes oriented to place and Yes oriented to time Skin: COMMON NORMALS: no rashes or lesions noted GENERAL SKIN EXAM: no rashes or lesions noted Course Vital Signs: Vital signs: Vital Signs Temperature 98.1 F 05/04/22 09:05 Pulse Rate 105 H 05/04/22 11:30 Respiratory Rate 25 H 05/04/22 11:30 Blood Pressure 151/94 05/04/22 11:00 Pulse Oximetry 96 05/04/22 11:30 Oxygen Delivery Me thod 05/04/22 11:30 MDM - Abdominal Pain Medical Decision Making Admit for acute pancreatitis n.p.o. IV fluids. Encourage alcohol abstinence. Discouraged use of alcohol to try to prevent pancreatitis. Medical Records I reviewed the patient's medical records. Lab Data I reviewed the patient's lab results. : 05/04/22 09:16 05/04/22 09:16 Labs/Radiology: Radiology Impressions Abdomen/Pelvis CT 05/04/22 09:11 IMPRESSION: 1. Moderate acute pancreatitis. Progressed since 01/08/2022. No well formed pseudocyst but there is inflammation with free fluid surrounding the pancreas and the duodenal C-loop. 2. Marked hepatic steatosis and hepatomegaly. The liver has increased in size and hepatic steatosis since 2019. 3. Hyperattenuating lesion in the RIGHT lobe of the liver has been previously described and described as a hemangioma on prior imaging studies. 4. Normal appendix. Laboratory Results WBC 13.5 10^3/uL (4.0-10.0) H 05/04/22 09:16 RBC 5.30 10^6/uL (4.1-5.3) 05/04/22 09:16 Hgb 17.1 g/dL (11.7-16.6) H 05/04/22 09:16 Hct 50.3 % (42.0-52.0) 05/04/22 09:16 MCV 94.9 fl (80-94) H 05/04/22 09:16 MCH 32.3 pg (28.0-34.0) 05/04/22 09:16 MCHC 34.0 g/dL (30.0-36.0) 05/04/22 09:16 RDW 13.8 % (12.1-15.1) 05/04/22 09:16 Plt Count 338 10^3/cmm (130-400) 05/04/22 09:16 MPV 9.5 fL (7.4-10.4) 05/04/22 09:16 Neut % (Auto) 89.6 % 05/04/22 09:16 Lymph % (Auto) 5.9 % 05/04/22 09:16 [place] % (Auto) 3.9 % 05/04/22 09:16 Eos % (Auto) 0.0 % 05/04/22 09:16 Baso % (Auto) 0.3 % 05/04/22 09:16 Neut # (Auto) 12.08 10^3/uL (1.8-7.7) H 05/04/22 09:16 Lymph # (Auto) 0.8 10^3/uL (0.8-4.8) 05/04/22 09:16 [place] # (Auto) 0.5 10^3/uL (0.2-0.9) 05/04/22 09:16 Eos # (Auto) 0.0 10^3/uL (0.0-0.8) 05/04/22 09:16 Baso # (Auto) 0.0 10^3/uL (0.0-0.1) 05/04/22 09:16 Nucleated RBC % (auto) 0 % 05/04/22 09:16 Nucleated RBCs # 0.0 /100WBC 05/04/22 09:16 Sodium 137 mmol/L (136-145) 05/04/22 09:16 Potassium 4.4 mmol/L (3.5-5.1) 05/04/22 09:16 Chloride 91 mmol/L (98-107) L 05/04/22 09:16 Carbon Dioxide 15 mmol/L (22-29) L 05/04/22 09:16 Anion Gap 35.4 (5-19) H 05/04/22 09:16 BUN 15 mg/dL (6-20) 05/04/22 09:16 Creatinine 0.8 mg/dL (0.7-1.2) 05/04/22 09:16 GFR Calculation 112.8 mL/min (90-130) 05/04/22 09:16 Glucose 97 mg/dL (65-115) 05/04/22 09:16 Calculated Osmolality 285 mOsm/kg (285-295) 05/04/22 09:16 Calcium 9.2 mg/dL (8.5-10.5) 05/04/22 09:16 Total Bilirubin 0.7 mg/dL (0.15-1.2) 05/04/22 09:16 AST 148 U/L (0-40) H 05/04/22 09:16 ALT 228 U/L (0-41) H 05/04/22 09:16 Alkaline Phosphatase 142 IU/L (40-130) H 05/04/22 09:16 Total Protein 7.5 g/dL (6.6-8.7) 05/04/22 09:16 Albumin 4.6 g/dL (3.5-5.2) 05/04/22 09:16 Globulin 2.9 g/dL (1.3-4.6) 05/04/22 09:16 Lipase 1159 U/L (13-60) H 05/04/22 09:16 Discharge Plan Discharge Patient Disposition: Admitted As Inpatient Clinical Impression: Pancreatitis, acute, Alcohol abuse Condition: Stable Prescriptions: No Action digestive enzymes Tablet 1 tab PO DAILY resveratrol 250 mg capsule 250 mg PO DAILY atorvastatin 40 mg tablet 40 mg PO DAILY Qty: 30 5RF ondansetron HCl 8 mg tablet 8 mg PO Q8H PRN (Reason: nausea and vomiting) 30 Days Qty: 60 0RF mirtazapine 15 mg tablet See Rx Instructions .ROUTE .COMPLEX Qty: 30 5RF Dose Instruction: TAKE 1 TABLET BY MOUTH EVERY NIGHT AT BEDTIME FOR MENTAL HEALTH Rx Instructions: TAKE 1 TABLET BY MOUTH EVERY NIGHT AT BEDTIME FOR MENTAL HEALTH clonidine HCl 0.1 mg tablet 0.1 mg PO BID Qty: 60 1RF lisinopril 40 mg Tablet 40 mg PO QAM sucralfate [Carafate] 100 mg/mL suspension 1 g PO TID PRN (Reason: GERD) metoprolol tartrate 100 mg tablet 100 mg PO BID trazodone 50 mg tablet 25 mg PO BEDTIME omeprazole 40 mg capsule,delayed release(DR/EC) 40 mg PO DAILY Rx Instructions: TAKE 1 CAPSULE BY MOUTH DAILY FOR ACID REFLUX metoclopramide HCl [Reglan] 10 mg tablet 10 mg PO Q6H PRN (Reason: nausea and vomiting) Qty: 14 0RF Referrals: Antonio Alvarado MD [Primary Care Provider] - Patient Instructions: Opioid Safety Coding Level of Care Code ED Survey Director for [facility] Fwd Exam Comprehensive
[2022-05-04] MEDS: ondansetron 2 mg/ML SDV 2 mL 4 MG IVP ×2 (09:40→16:09)
[2022-05-04] MEDS: morphine 4 mg/mL SDV 1 mL 8 MG IVP ×2 (09:40→11:26)
[2022-05-04] MEDS: pantoprazole 40 mg SDV 80 MG IVP (09:41)
[2022-05-04] MEDS: sodium chloride 0.9% 1,000 ML 999 ML IV ×2 (09:41→11:27)
[2022-05-04] MEDS: folic acid 1 MG, multivitamin inj 10 ML, thiamine 100 MG in sodium chloride 0.9% 1,000 ML 252.8 MG IV (09:57)
[2022-05-04 09:58] LABS: Basophils % 0.3 %; Hematocrit 50.3 % (42.0-52.0); Hemoglobin 17.1 g/dL (11.7-16.6); Lymphocytes # 0.8 10^3/uL (0.8-4.8); Lymphocytes % 5.9 %; Mean Corpuscular Hemoglobin 32.3 pg (28.0-34.0); Mean Corpuscular Volume 94.9 fl (80-94); Mean Platelet Volume 9.5 fL (7.4-10.4); Monocytes # 0.5 10^3/uL (0.2-0.9); Monocytes % 3.9 %; Neutrophils # 12.08 10^3/uL (1.8-7.7); Neutrophils % 89.6 %; Nucleated Red Blood Cells % 0 %; Platelet Count 338 10^3/cmm (130-400); Red Cell Distribution Width 13.8 % (12.1-15.1); White Blood Count 13.5 10^3/uL (4.0-10.0)
--- NOTE | 2022-05-04 10:06 | ECG_ITS ---
[facility] Test Date: 2022-05-04 Pat Name: Buddy Cowan Department: Room: 250 Gender: Male Atmospheric Physicist: : 1990 Requested By: Troy Hopson Order Number: [id number] Thomas MD: Gino Islas M.D. Measurements Intervals [place] Rate: 88 P: 65 [place]: 185 QRS: 55 QRSD: 83 T: 35 QT: 323 QTc: 392 Interpretive Statements SINUS RHYTHM WITH SINUS ARRHYTHMIA SEPTAL MYOCARDIAL INFARCTION , PROBABLY OLD [40+ ms Q WAVE IN V1/V2] Compared to ECG 10/11/2021 13:10:45 Myocardial infarct finding now present Sinus tachycardia no longer present T-wave abnormality no longer present Electronically Signed On 05-04-2022 16:33:57 CDT by Gino Islas M.D. [id number]
[2022-05-04 10:21] LABS: Alanine Aminotransferase 228 U/L (0-41); Albumin Level 4.6 g/dL (3.5-5.2); Alkaline Phosphatase 142 IU/L (40-130); Anion Gap 35.4 (5-19); Aspartate Amino Transferase 148 U/L (0-40); Blood Urea Nitrogen 15 mg/dL (6-20); Calcium 9.2 mg/dL (8.5-10.5); Carbon Dioxide 15 mmol/L (22-29); Chloride 91 mmol/L (98-107); Globulin 2.9 g/dL (1.3-4.6); Glomerular Filtration Rate 112.8 mL/min (90-130); Glucose 97 mg/dL (65-115); Osmolality Calculated 285 mOsm/kg (285-295); Potassium 4.4 mmol/L (3.5-5.1); Sodium 137 mmol/L (136-145); Total Bilirubin 0.7 mg/dL (0.15-1.2); Total Protein 7.5 g/dL (6.6-8.7)
[2022-05-04 10:29] LABS: Lipase 1159 U/L (13-60)
[2022-05-04] MEDS: promethazine 25 mg/mL SDV 1 mL IM (11:28)
[2022-05-04] MEDS: HYDROmorphone 1 mg/mL INJ 1 mL IVP ×3 (13:19→19:07)
--- NOTE | 2022-05-04 14:31 | PM.HP ---
Providers/Chief Complaint Admitting Physician: Troy Hopson MD Primary Care Provider: Antonio Alvarado MD Chief Complaint: ABD PAIN History of Present Illness Buddy Cowan is a 31 year old male with a past medical history of hypertension, hyperlipidemia, anxiety, depression, GERD, PTSD, history of alcohol abuse, history of pancreatitis, hospitalization for pancreatitis on 01/26/2022 who presents [facility] due to worsening abdominal pain, nausea, vomiting, bloating, feeling unwell for the last few weeks, now worsening in the last few days. Patient tells me that he chronically has some degree of abdominal pain since he got to the hospital, has chronic bloating, chronic nonspecific abdominal pain. He tells me that for the last week or so, he has been under a lot of stress, has been having a lot of family stressors, he has been , his divorce has been fighting for custody for his children, he has been drinking more, denies any blacking out, he tells me for the last few days he has been developing increased abdominal pain, bloating, nausea. This morning he continued to have abdominal pain, he had a piece of hamburger, and also some wine, and he he suddenly started to develop worsening abdominal pain. He tells me that he has been sleeping for the last 5 days and has been drinking more alcohol to compensate to help him sleep. Review of Systems Const: Denies: fever(s) Card: Denies: chest pain Resp: Denies: dyspnea GI: Reports: abdominal pain, nausea and vomiting; Denies: hematemesis Musc: Denies: back pain Medications/Allergies Home Medications Medication Instructions Recorded Confirmed Last Taken Type lisinopril 40 mg tablet 40 mg PO QAM 01/30/21 05/04/22 01/30/21 History metoclopramide HCl 10 mg tablet 10 mg PO Q6H PRN nausea and 12/24/21 05/04/22 Unknown Rx (Reglan) vomiting #14 tabs sucralfate 100 mg/mL oral 1 g PO TID PRN GERD 01/08/22 05/04/22 Unknown History suspension (Carafate) digestive enzymes 1 tab PO DAILY 01/18/22 05/04/22 Unknown History resveratrol 250 mg capsule 250 mg PO DAILY 01/18/22 05/04/22 Unknown History ondansetron HCl 8 mg tablet 8 mg PO Q8H PRN nausea and 02/04/22 05/04/22 Unknown Rx vomiting 30 days #60 tabs mirtazapine 15 mg tablet See Rx Instructions .Route 02/15/22 05/04/22 Unknown Rx .COMPLEX #30 tabs atorvastatin 40 mg tablet 40 mg PO DAILY High cholesterol 02/22/22 05/04/22 Unknown Rx and fats #30 tabs clonidine HCl 0.1 mg tablet 0.1 mg PO BID #60 tabs 03/08/22 05/04/22 05/03/22 Rx metoprolol tartrate 100 mg tablet 100 mg PO BID 05/04/22 05/04/22 Unknown History omeprazole 40 mg capsule,delayed 40 mg PO DAILY 05/04/22 05/04/22 Unknown History release trazodone 50 mg tablet 25 mg PO BEDTIME 05/04/22 05/04/22 Unknown History Allergies Allergy/AdvReac Type Severity Reaction Status Date / Time aspirin Allergy Unknown Unknown Verified 02/04/22 11:32 NSAIDS (Non-Steroidal Allergy Unknown Unknown Verified 02/04/22 11:32 Anti-Inflamma buspirone AdvReac Intermediate ADR-Anxiety Verified 02/04/22 11:32 PFSH Acute PFSH: Medical History Acute posttraumatic stress disorder Alcohol abuse Anxiety and depression Generalized anxiety disorder with panic attacks GERD (gastroesophageal reflux disease) Hyperlipidemia Hypertension Insomnia Pancreatitis, acute Psychiatric care Surgical History No pertinent past surgical history Family History Father Hypertension Social History Smoking and tobacco status: never smoked Alcohol intake: current Alcohol intake frequency: 0-2 Drinks per Day Marital status: Number of children: 5 Current occupational status: employed Current gender identity: Male Vitals/I&O/Wt Last Vital Signs Temp 98.1 F 05/04/22 09:05 Pulse 120 H 05/04/22 13:00 Resp 22 H 05/04/22 13:19 BP 151/102 05/04/22 13:00 Pulse Ox 97 05/04/22 13:00 O2 Del Method 05/04/22 13:00 05/03/22 05/04/22 05/04/22 22:59 06:59 14:59 Intake Total 3011.2 / 3011.2 Balance 3011.2 / 3011.2 Weight last 48 hrs Weight 104.326 kg Physical Exam Const: COMMON NORMALS: no acute distress and patient oriented x3 HENMT: COMMON NORMALS: normocephalic HEAD & SCALP: normocephalic Eye: COMMON NORMALS: Equal, round and reactive pupils present and EOMs intact bilaterally Neck/C-Spine: COMMON NORMALS: full ROM and no lymphadenopathy Resp: COMMON NORMALS: normal respiratory effort, No retractions, No use of accessory muscles and clear to auscultation bilaterally AUSCULTATION: clear to auscultation bilaterally Cardio: COMMON NORMALS: regular rate, regular rhythm, S1 normal heart sound present and S2 normal heart sound present RATE: regular rate RHYTHM: regular rhythm HEART SOUNDS: S1 normal heart sound present and S2 normal heart sound present GI: OTHER: Soft, distended, diffuse abdominal pain, decreased bowel sounds,, no guarding, no rebound, no rigidity Extremity: COMMON NORMALS: no pedal edema Neuro: COMMON NORMALS: patient oriented x3, CN's II-XII intact bilaterally, moves all extremities and no focal motor deficits Psych: COMMON NORMALS: mental status grossly normal Data : 05/04/22 09:16 05/04/22 09:16 A&P Assessment and plan (1) Pancreatitis, acute: Status: Acute Plan Acute severe pancreatitis -Keep n.p.o. 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
[2022-05-04 15:37] LABS: Lactic Sepsis W/Reflex 5.4 mmol/L (0.5-2.2)
[2022-05-04 15:50] LABS: INR 1.05 (0.8-1.2)
[2022-05-04 15:55] LABS: Procalcitonin 0.08 ng/mL (0-0.5); Thyroid Stimulating Hormone 1.04 uIU/mL (0.27-4.20)
[2022-05-04 16:00] LABS: Alcohol Level < 10 mg/dL (0-10)
[2022-05-04] MEDS: sodium chloride 0.9% 1,000 ML 125 ML IV (16:03)
[2022-05-04] MEDS: oxyCODONE 5 mg IR Tab/Cap 10 MG PO (16:05)
[2022-05-04] MEDS: enoxaparin 40 mg/0.4 mL Syringe SUBCUT (16:05)
[2022-05-04 16:06] LABS: C Reactive Protein 3.1 mg/L (0.0-4.9); Chol HDL Ratio 3.23 mg/dL (1.0-5.00); Cholesterol 184 mg/dL (0-200); HDL Cholesterol 57 mg/dL (60-100); LDL Cholesterol Calculated 102 mg/dL (50-129); LDL HDL Ratio 1.79 RATIO (0.00-3.22); Magnesium 1.4 mg/dL (1.7-2.3); Phosphorus 3.7 mg/dL (2.5-4.5); Triglycerides 126 mg/dL (0-150)
[2022-05-04] MEDS: piperacillin-tazobactam 3.375 GM in sodium chloride 0.9% (plus) 50 ML 12.5 GM PHA2DOSE (16:06)
[2022-05-04 16:58] LABS: Reflex Lactate Order REFLEX LACTIC ORDERD
[2022-05-04] MEDS: LORazepam 2 mg Tablet PO ×2 (17:31→20:16)
[2022-05-04] MEDS: cloNIDine 0.1 mg Tablet PO (17:32)
[2022-05-04 17:44] LABS: Lactic Acid level (Lactate) 4.4 mmol/L (0.5-2.2)
[2022-05-04] MEDS: zolpidem 5 mg Tablet PO (19:56)
[2022-05-04] MEDS: metoprolol tartrate 50 mg Tablet PO (19:56)
[2022-05-05] VITALS (14 sets, daily range): BP systolic 134–156; BP diastolic 85–106; PULSE 73–121; RESP 16–20; TEMP 36.7–37.8; O2SAT 93–95
[2022-05-05] MEDS: sodium chloride 0.9% 1,000 ML 125 ML IV ×3 (00:02→20:19)
[2022-05-05] MEDS: piperacillin-tazobactam 3.375 GM in sodium chloride 0.9% (plus) 50 ML 12.5 GM PHA2DOSE ×4 (00:36→23:59)
[2022-05-05 03:16] LABS: Add Urine Microscopic? NO; Charge for UA Resulting for Rev
[2022-05-05 03:26] LABS: Amphetamines Screen Urine Negative (Negative); Barbiturates Screen Urine Negative (Negative); Benzodiazepines Screen Urine Positive (Negative); Cocaine Screen Urine Negative (Negative); Opiate Screen Urine Positive (Negative); PCP Screen Urine Negative (Negative); THC Screen Urine Negative (Negative)
[2022-05-05 03:30] LABS: Bilirubin Urine Neg (Negative); Blood Urine Neg (Negative); Glucose Urine UA Norm (Normal); Ketones Urine 2+ (Negative); Leukocyte Esterase Urine Negative (Negative); Nitrate Urine Negative (Negative); Protein Urine Neg (Negative); Urine Appearance Clear (CLEAR); Urine Color Yellow (Yellow); Urobilinogen Urine Norm (Negative); pH Urine 6 (5-7)
[2022-05-05] MEDS: HYDROmorphone 1 mg/mL INJ 1 mL IVP ×4 (03:49→20:20)
[2022-05-05 04:29] LABS: Basophils % 0.1 %; Hematocrit 42.3 % (42.0-52.0); Hemoglobin 14.3 g/dL (11.7-16.6); Lymphocytes # 0.6 10^3/uL (0.8-4.8); Lymphocytes % 5.1 %; Mean Corpuscular HGB Conc 33.8 g/dL (30.0-36.0); Mean Corpuscular Hemoglobin 32.3 pg (28.0-34.0); Mean Corpuscular Volume 95.5 fl (80-94); Mean Platelet Volume 9.6 fL (7.4-10.4); Monocytes # 0.4 10^3/uL (0.2-0.9); Monocytes % 3.8 %; Neutrophils % 90.7 %; Nucleated Red Blood Cells % 0 %; Platelet Count 159 10^3/cmm (130-400); Red Blood Count 4.43 10^6/uL (4.1-5.3); Red Cell Distribution Width 13.9 % (12.1-15.1); White Blood Count 11.5 10^3/uL (4.0-10.0)
[2022-05-05 04:50] LABS: Lactate (Lactic Acid level) 0.8 mmol/L (0.5-2.2)
[2022-05-05 04:56] LABS: Creatine Phosphokinase 90 U/L (39-308)
[2022-05-05 05:02] LABS: Procalcitonin 0.29 ng/mL (0-0.5)
[2022-05-05 05:03] LABS: Alanine Aminotransferase 115 U/L (0-41); Albumin Level 3.4 g/dL (3.5-5.2); Alkaline Phosphatase 92 IU/L (40-130); Anion Gap 15.8 (5-19); Aspartate Amino Transferase 74 U/L (0-40); Blood Urea Nitrogen 14 mg/dL (6-20); C Reactive Protein 86.7 mg/L (0.0-4.9); Calcium 8.2 mg/dL (8.5-10.5); Carbon Dioxide 23 mmol/L (22-29); Chloride 104 mmol/L (98-107); Globulin 1.8 g/dL (1.3-4.6); Glomerular Filtration Rate 131.5 mL/min (90-130); Glucose 106 mg/dL (65-115); Magnesium 1.5 mg/dL (1.7-2.3); Osmolality Calculated 289 mOsm/kg (285-295); Phosphorus 2.4 mg/dL (2.5-4.5); Potassium 3.8 mmol/L (3.5-5.1); Sodium 139 mmol/L (136-145); Total Bilirubin 1.2 mg/dL (0.15-1.2); Total Protein 5.2 g/dL (6.6-8.7)
[2022-05-05 05:12] LABS: Lipase 1233 U/L (13-60)
[2022-05-05] MEDS: LORazepam 2 mg Tablet PO (05:37)
[2022-05-05] MEDS: pantoprazole 40 mg SDV IVP ×2 (08:07→20:19)
[2022-05-05] MEDS: ondansetron 2 mg/ML SDV 2 mL 4 MG IVP (08:07)
[2022-05-05] MEDS: cloNIDine 0.1 mg Tablet PO ×2 (08:08→20:18)
[2022-05-05] MEDS: metoprolol tartrate 50 mg Tablet PO ×2 (08:08→20:20)
[2022-05-05] MEDS: multivitamin therapeutic Tablet 1 TAB PO (08:08)
[2022-05-05] MEDS: atorvastatin 40 mg Tablet PO (08:08)
[2022-05-05] MEDS: thiamine 100 mg Tablet PO (08:08)
[2022-05-05] MEDS: folic acid 1 mg Tablet PO (08:08)
--- NOTE | 2022-05-05 09:37 | PC.CHAP ---
Pastoral Care Encounter/Spiritual Assessment Type of Contact [] Declined commercial helicopter pilot visit [] Patient/Family/Request visit [] Outpatient visit [] Follow-up visit [] Physician referral [] Code/Alert [x] Routine visit [] Staff referral [] Actively dying [] Patient sleeping [] Family support [] [] Out of room [] Palliative care [] [x] Receiving care in room [] Pre-surgical visit [] Trauma [x] Long length of stay [] ICU visit [] Other: Relational/Emotional Strength [x] Patient feels connected with others/family/visitors/staff [] Distress [] Loneliness/isolation [] Abandonment Spirituality of Patient [x] Person of Mirlande [] Attends Sikhism of their Mirlande [x] Believes in Prayer [] Reads Bible or Presybeterian materials [] There are Spiritual issues to be addressed Construction Accountant Interventions [x] Prayer [x] Active listening [x] Non-anxious presence [x] Spiritual/emotional support [] Crisis/trauma care [x] Spiritual counseling [] Bereavement support [] Provided bereavement packet [] Provided Bible/devotional materials [] Provided toy/stuffed animal, coloring book to patient or family member [] Provided Communion [] Anointing/[place] [] Salvation [x] Completed spiritual assessment [] Other: Impact on Illness or Injury [] Angry [] Fearful [] Anxious [] Often cries [] Exhaustion [] Unable to work [] Unable to attend judaism [] Unable to walk/stand [] Unable to read [] Unable to drive [] Unable to eat/drink [] Unable to sleep [] Unable to be with family [] Patient intubated [] Other: Summary senior in pain doesn't know about his health not sure when he will get to home at some point Time spent with patient 10 mins
--- NOTE | 2022-05-05 10:15 | MR_ITS ---
WS: [id number] MRI/MRCP OF THE ABDOMEN WITHOUT GADOLINIUM ENHANCEMENT TECHNIQUE: Thin and thick slab MRCP, Axial T2, Coronal MRCP, Axial Dual Echo, and Axial 2-D Fiesta imaging was obtained. Coronal 2-D Fiesta imaging. CLINICAL INFORMATION: r/o acuet ascending chlangitis COMPARISON: CT May 04, 2022 FINDINGS: Hepatomegaly. Diffuse fatty infiltration of the liver. Portal vein and splenic vein are patent. No in trahepatic biliary ductal dilatation. Intrahepatic ducts appear normal. Gallbladder appears unremarka ble. Normal common bile duct. No evidence of choledocholithiasis. Stable hemangioma in the RIGHT hepa tic lobe. Diffuse edema with inflammatory stranding about the pancreas worse about the pancreatic head compatib le with acute pancreatitis. Splenic vein is patent. Small amount of peripancreatic fluid. Adrenal glands are normal. Edema about both kidneys can be seen with renal insufficiency. No hydronep hrosis. Tiny bilateral pleural effusions. Upper abdominal aorta is normal caliber. Normal GE junction. MR/MR MRCP [id number] Impression: 1. Findings compatible with acute pancreatitis as described above. No drainabl e fluid collections or pseudocyst. 2. Hepatomegaly with diffuse fatty infiltration of the liver. No intrahepatic biliary ductal dilatation. 3. Normal intrahepatic ducts and common bile duct. 4. Stable hemangioma in the RIGHT hepatic lobe. 5. Small amount of edema about the kidneys bilaterally can be seen with renal insufficiency. 6. Small bilateral pleural effusions.
--- NOTE | 2022-05-05 10:32 | PC.NURSE ---
Called Dr. Hopson to confirm Picc line placement for TPN. Doctor to be notified when placed. Pt is aware.
[2022-05-05] MEDS: promethazine 25 mg/mL SDV 1 mL 12.5 MG IM (10:35)
--- NOTE | 2022-05-05 11:43 | P.PN_ITS ---
Subjective Subjective: Patient was seen this morning, he continues to have significant abdominal pain, has not had a bowel movement, abdomen remains distended, he feels nauseous, low-grade fevers overnight, he tells he did sleep with the Ambien, Vitals/I&O/Wt Last Vital Signs Temp 99.4 F 05/05/22 07:16 Pulse 100 05/05/22 07:16 Resp 18 05/05/22 08:07 BP 144/95 05/05/22 08:08 Pulse Ox 95 05/05/22 07:16 O2 Del Method 05/05/22 07:16 05/04/22 05/05/22 05/05/22 22:59 06:59 14:59 Intake Total 45 / 3056.2 1097.917 / 4154.117 950 / 950 Output Total 700 / 700 600 / 1300 Balance -655 / 2356.2 497.917 / 2854.117 950 / 950 Weight last 48 hrs Weight 104.326 kg Weight 104.326 kg Physical Exam Const: COMMON NORMALS: no acute distress and patient oriented x3 Resp: COMMON NORMALS: normal respiratory effort, No retractions, No use of accessory muscles and clear to auscultation bilaterally AUSCULTATION: clear to auscultation bilaterally Cardio: COMMON NORMALS: regular rate, regular rhythm, S1 normal heart sound present and S2 normal heart sound present RATE: regular rate RHYTHM: regular rhythm HEART SOUNDS: S1 normal heart sound present and S2 normal heart sound present GI: OTHER: Abdomen is soft, distended, no guarding, no rebound, no rigidity, diffuse tenderness Extremity: COMMON NORMALS: no pedal edema Neuro: COMMON NORMALS: patient oriented x3 Psych: COMMON NORMALS: mental status grossly normal Data : 05/05/22 04:15 05/05/22 04:15 Micro: Microbiology 05/04/22 15:56 Blood Culture - Preliminary Blood SPECIMEN COLLECTED 05/04/22 16:01 Blood Culture - Preliminary Blood SPECIMEN COLLECTED A&P Assessment and plan (1) Pancreatitis, acute: Status: Acute Plan Acute severe pancreatitis -Keep n.p.o. 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
--- NOTE | 2022-05-05 12:25 | XR_ITS ---
WS: [id number] PORTABLE CHEST HISTORY: PICC LINE PLACEMENT COMPARISON: 01/30/2021 Right-sided PICC line with tip in the distal SVC. No complications. Lung volumes are decreased due to poor inspiration. No pleural effusion or pneumothorax. Cardiac size: Normal. Mediastinum/Aorta: Normal mediastinum. No osseous abnormality seen. XR/XR chest 1V portable [id number] IMPRESSION: Right-sided PICC line in satisfactory position.
[2022-05-05] MEDS: magnesium sulfate premix 4 GM/100 ML PREMIX IV (14:18)
[2022-05-05] MEDS: enoxaparin 40 mg/0.4 mL Syringe SUBCUT (14:43)
[2022-05-05] MEDS: zolpidem 5 mg Tablet PO (23:58)
[2022-05-06] VITALS (16 sets, daily range): BP systolic 135–160; BP diastolic 84–103; PULSE 82–116; RESP 15–21; TEMP 36.9–37.2; O2SAT 94–97
[2022-05-06] MEDS: HYDROmorphone 1 mg/mL INJ 1 mL IVP ×5 (00:30→22:47)
[2022-05-06] MEDS: sodium chloride 0.9% 1,000 ML 125 ML IV ×3 (04:28→15:36)
[2022-05-06 04:42] LABS: Basophils % 0.3 %; Eosinophils % 0.1 %; Hematocrit 40.3 % (42.0-52.0); Hemoglobin 13.1 g/dL (11.7-16.6); Lymphocytes % 9.9 %; Mean Corpuscular HGB Conc 32.5 g/dL (30.0-36.0); Mean Corpuscular Hemoglobin 32.6 pg (28.0-34.0); Mean Corpuscular Volume 100.2 fl (80-94); Mean Platelet Volume 10.5 fL (7.4-10.4); Monocytes # 0.3 10^3/uL (0.2-0.9); Monocytes % 3.2 %; Neutrophils # 9.02 10^3/uL (1.8-7.7); Neutrophils % 86.2 %; Nucleated Red Blood Cells % 0 %; Platelet Count 100 10^3/cmm (130-400); Red Blood Count 4.02 10^6/uL (4.1-5.3); Red Cell Distribution Width 14.1 % (12.1-15.1); White Blood Count 10.5 10^3/uL (4.0-10.0)
[2022-05-06 04:50] LABS: INR 1.08 (0.8-1.2)
[2022-05-06 04:55] LABS: Lactate (Lactic Acid level) 0.7 mmol/L (0.5-2.2)
[2022-05-06 05:01] LABS: Alanine Aminotransferase 95 U/L (0-41); Albumin Level 3.1 g/dL (3.5-5.2); Alkaline Phosphatase 111 IU/L (40-130); Anion Gap 16.6 (5-19); Aspartate Amino Transferase 91 U/L (0-40); Blood Urea Nitrogen 15 mg/dL (6-20); C Reactive Protein 277.3 mg/L (0.0-4.9); Calcium 8.2 mg/dL (8.5-10.5); Carbon Dioxide 22 mmol/L (22-29); Chloride 103 mmol/L (98-107); Creatine Phosphokinase 46 U/L (39-308); Globulin 2.9 g/dL (1.3-4.6); Glomerular Filtration Rate 131.5 mL/min (90-130); Glucose 85 mg/dL (65-115); Magnesium 2.3 mg/dL (1.7-2.3); Osmolality Calculated 286 mOsm/kg (285-295); Phosphorus 2.2 mg/dL (2.5-4.5); Potassium 3.6 mmol/L (3.5-5.1); Sodium 138 mmol/L (136-145); Total Bilirubin 0.9 mg/dL (0.15-1.2)
[2022-05-06 05:07] LABS: Procalcitonin 0.21 ng/mL (0-0.5)
[2022-05-06 05:09] LABS: Lipase 453 U/L (13-60)
[2022-05-06] MEDS: pantoprazole 40 mg SDV IVP ×2 (09:22→20:45)
[2022-05-06] MEDS: piperacillin-tazobactam 3.375 GM in sodium chloride 0.9% (plus) 50 ML 12.5 GM PHA2DOSE ×3 (09:23→23:30)
[2022-05-06] MEDS: thiamine 100 mg Tablet PO (09:27)
[2022-05-06] MEDS: atorvastatin 40 mg Tablet PO (09:27)
[2022-05-06] MEDS: phosphorus 250 mg Tablet PO ×2 (09:27→18:43)
[2022-05-06] MEDS: cloNIDine 0.1 mg Tablet PO ×2 (09:27→18:43)
[2022-05-06] MEDS: multivitamin therapeutic Tablet 1 TAB PO (09:28)
[2022-05-06] MEDS: folic acid 1 mg Tablet PO (09:28)
[2022-05-06] MEDS: LORazepam 2 mg Tablet PO (09:28)
[2022-05-06] MEDS: metoprolol tartrate 50 mg Tablet PO (09:37)
[2022-05-06] MEDS: AA-Dex 5%-20% w/Lytes 1,000 ML 12 ML IV (09:59)
--- NOTE | 2022-05-06 13:18 | PM.PN ---
Subjective Subjective: Patient was seen this morning, his family is at bedside, he has 5 children, he tells me that his pain has improved, still has nausea, has not been vomiting episodes, has not had a bowel movement, not passing gas, no fevers overnight Vitals/I&O/Wt Last Vital Signs Temp 98.7 F 05/06/22 12:00 Pulse 97 05/06/22 12:00 Resp 16 05/06/22 12:00 BP 135/84 05/06/22 12:00 Pulse Ox 94 05/06/22 12:00 O2 Del Method 05/06/22 12:00 05/05/22 05/06/22 05/06/22 22:59 06:59 14:59 Intake Total 626.25 / 2095.00 1050 / 3145.00 1000 / 1000 Output Total 600 / 600 0 / 600 Balance 26.25 / 1495.00 1050 / 2545.00 1000 / 1000 Weight last 48 hrs Weight 106.503 kg Weight 104.326 kg Data : 05/06/22 04:13 05/06/22 04:13 Micro: Microbiology 05/04/22 15:56 Blood Culture - Preliminary Blood NEGATIVE TO DATE 05/04/22 16:01 Blood Culture - Preliminary Blood NEGATIVE TO DATE A&P Assessment and plan (1) Pancreatitis, acute: Status: Acute Plan Acute severe pancreatitis -MRCP -1.? Findings compatible with acute pancreatitis as described above. No drainable fluid collections or pseudocyst. 2.? Hepatomegaly with diffuse fatty infiltration of the liver. No intrahepatic biliary ductal dilatation. 3.? Normal intrahepatic ducts and common bile duct. 4.? Stable hemangioma in the RIGHT hepatic lobe. 5.? Small amount of edema about the kidneys bilaterally can be seen with renal insufficiency. 6.? Small bilateral pleural effusions. -CRP to 77.3, -Transaminitis -Lipase 453 -WBC 10.5 -Platelet count 100, monitor ?-Keep n.p.o. 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
--- NOTE | 2022-05-06 13:35 | ECG_ITS ---
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 Measurements Intervals [place] Rate: 100 P: 57 DC: 220 QRS: 43 QRSD: 82 T: 41 QT: 308 QTc: 397 Interpretive Statements SINUS TACHYCARDIA WITH FIRST DEGREE AV BLOCK Compared to ECG 05/04/2022 10:06:42 First degree AV block now present Sinus rhythm no longer present Sinus arrhythmia no longer present Myocardial infarct finding no longer present Electronically Signed On 05-06-2022 15:10:20 CDT by Gisella Gaytan M.D. [id number]
[2022-05-06 15:10] LABS: Troponin(5th) Baseline 7 ng/L (0-15)
[2022-05-06] MEDS: enoxaparin 40 mg/0.4 mL Syringe SUBCUT (15:34)
--- NOTE | 2022-05-06 15:35 | ECG_ITS ---
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 Measurements Intervals [place] Rate: 100 P: 52 [place]: 210 QRS: 34 QRSD: 86 T: 9 QT: 307 QTc: 397 Interpretive Statements SINUS TACHYCARDIA WITH FIRST DEGREE AV BLOCK NONSPECIFIC T-WAVE ABNORMALITY Compared to ECG 05/06/2022 13:42:15 T-wave abnormality now present Electronically Signed On 05-06-2022 17:40:42 CDT by Gisella Gaytan M.D. [id number]
[2022-05-06] MEDS: oxyCODONE 5 mg IR Tab/Cap PO ×2 (15:36→21:31)
[2022-05-06 17:46] LABS: Troponin 5 2HR 6.21 ng/L (0-15)
[2022-05-06 18:17] LABS: Troponin 5 2HR Delta -0.79 ABS# (0-10)
--- NOTE | 2022-05-06 18:32 | PC.NUTR ---
Given Patient's weight of 106 kg, recommend increasing Pt's TPN goal rate from 42 mls/hr to 83 mls/hr and including 25 g/125 mls fat emulsion as well as standard electrolytes and multivitamins 10 mls/day. Details in RD assessment.
[2022-05-06] MEDS: sucralfate 1 gm/10 mL Oral Liq UDC PO (18:42)
[2022-05-06] MEDS: metoprolol tartrate 50 mg Tablet 100 MG PO (20:17)
[2022-05-06 20:54] LABS: Troponin 5 6HR 7.22 ng/L (0-15)
[2022-05-06 20:56] LABS: Troponin 5 6HR Delta 0.22 ng/L (0-12)
--- NOTE | 2022-05-06 21:55 | ECG_ITS ---
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 Measurements Intervals [place] Rate: 93 P: 50 [place]: 219 QRS: 37 QRSD: 90 T: 28 QT: 262 QTc: 326 Interpretive Statements SINUS RHYTHM WITH FIRST DEGREE AV BLOCK NONSPECIFIC T-WAVE ABNORMALITY Compared to ECG 05/06/2022 15:52:51 Sinus tachycardia no longer present T-wave abnormality still present Electronically Signed On 05-07-2022 12:00:17 CDT by Gino Islas M.D. [id number]
[2022-05-07] VITALS (15 sets, daily range): BP systolic 134–174; BP diastolic 77–98; PULSE 71–100; RESP 16–24; TEMP 36.7–37.5; O2SAT 93–98
[2022-05-07] MEDS: sodium chloride 0.9% 1,000 ML 125 ML IV ×2 (00:49→17:16)
[2022-05-07] MEDS: HYDROmorphone 1 mg/mL INJ 1 mL IVP ×3 (02:52→20:55)
[2022-05-07 05:10] LABS: Basophils % 0.3 %; Eosinophils # 0.1 10^3/uL (0.0-0.8); Eosinophils % 0.6 %; Hematocrit 31.4 % (42.0-52.0); Hemoglobin 10.5 g/dL (11.7-16.6); Lymphocytes # 0.9 10^3/uL (0.8-4.8); Lymphocytes % 11.9 %; Mean Corpuscular HGB Conc 33.4 g/dL (30.0-36.0); Mean Corpuscular Hemoglobin 32.3 pg (28.0-34.0); Mean Corpuscular Volume 96.6 fl (80-94); Mean Platelet Volume 11.5 fL (7.4-10.4); Monocytes # 0.5 10^3/uL (0.2-0.9); Monocytes % 6.7 %; Neutrophils # 6.32 10^3/uL (1.8-7.7); Neutrophils % 80.1 %; Nucleated Red Blood Cells % 0 %; Platelet Count 78 10^3/cmm (130-400); Red Blood Count 3.25 10^6/uL (4.1-5.3); Red Cell Distribution Width 13.7 % (12.1-15.1); White Blood Count 7.9 10^3/uL (4.0-10.0)
[2022-05-07 05:20] LABS: INR 1.09 (0.8-1.2)
[2022-05-07 05:29] LABS: Lactate (Lactic Acid level) 0.5 mmol/L (0.5-2.2)
[2022-05-07 05:51] LABS: Procalcitonin 0.21 ng/mL (0-0.5)
[2022-05-07 06:12] LABS: Alanine Aminotransferase 84 U/L (0-41); Albumin Level 2.8 g/dL (3.5-5.2); Alkaline Phosphatase 83 IU/L (40-130); Anion Gap 13.9 (5-19); Aspartate Amino Transferase 102 U/L (0-40); Blood Urea Nitrogen 11 mg/dL (6-20); C Reactive Protein 241.7 mg/L (0.0-4.9); Calcium 7.7 mg/dL (8.5-10.5); Carbon Dioxide 23 mmol/L (22-29); Chloride 100 mmol/L (98-107); Creatine Phosphokinase 34 U/L (39-308); Globulin 2.6 g/dL (1.3-4.6); Glomerular Filtration Rate 193.9 mL/min (90-130); Glucose 102 mg/dL (65-115); Lipase 130 U/L (13-60); Osmolality Calculated 278 mOsm/kg (285-295); Phosphorus 2.5 mg/dL (2.5-4.5); Sodium 134 mmol/L (136-145); Total Protein 5.4 g/dL (6.6-8.7)
[2022-05-07 06:17] LABS: Potassium 2.9 mmol/L (3.5-5.1)
[2022-05-07] MEDS: pantoprazole 40 mg SDV IVP ×2 (09:03→20:55)
[2022-05-07] MEDS: phosphorus 250 mg Tablet PO ×2 (09:12→17:17)
[2022-05-07] MEDS: cloNIDine 0.1 mg Tablet PO ×2 (09:12→17:12)
[2022-05-07] MEDS: folic acid 1 mg Tablet PO (09:12)
[2022-05-07] MEDS: oxyCODONE 5 mg IR Tab/Cap PO ×2 (09:13→17:12)
[2022-05-07] MEDS: multivitamin therapeutic Tablet 1 TAB PO (09:14)
[2022-05-07] MEDS: sucralfate 1 gm/10 mL Oral Liq UDC PO ×2 (09:15→17:12)
[2022-05-07] MEDS: metoprolol tartrate 50 mg Tablet 100 MG PO ×2 (09:15→20:48)
[2022-05-07] MEDS: atorvastatin 40 mg Tablet PO (09:15)
[2022-05-07] MEDS: thiamine 100 mg Tablet PO (09:15)
[2022-05-07] MEDS: piperacillin-tazobactam 3.375 GM in sodium chloride 0.9% (plus) 50 ML 12.5 GM PHA2DOSE ×3 (09:15→23:13)
[2022-05-07] MEDS: lidocaine 1% 5 ML in potassium chloride premix 100 ML 25 ML IV ×2 (09:28→12:28)
[2022-05-07 09:34] LABS: LAB Peripheral Smear Sent for Review
[2022-05-07 11:19] LABS: HIV 1 & 2 Antibody Non-Reactive (Non-Reactiv); HIV 1 & 2 Antigen Non-Reactive (Non-Reactiv)
--- NOTE | 2022-05-07 11:57 | P.PN_ITS ---
Subjective Subjective: Patient was seen this morning, no fevers overnight, no nausea, no vomiting, did have a bowel movement feels a bit better Vitals/I&O/Wt Last Vital Signs Temp 99.4 F 05/07/22 04:00 Pulse 74 05/07/22 11:51 Resp 18 05/07/22 11:51 BP 153/98 05/07/22 11:51 Pulse Ox 95 05/07/22 11:51 O2 Del Method 05/06/22 16:00 05/06/22 05/07/22 05/07/22 22:59 06:59 14:59 Intake Total 483.2 / 1533.2 1229.667 / 2762.867 Output Total 400 / 400 Balance 483.2 / 1533.2 829.667 / 2362.867 Weight last 48 hrs Weight 110.223 kg Weight 106.503 kg Physical Exam Const: COMMON NORMALS: no acute distress and patient oriented x3 Resp: COMMON NORMALS: normal respiratory effort, No retractions, No use of accessory muscles and clear to auscultation bilaterally AUSCULTATION: clear to auscultation bilaterally Cardio: COMMON NORMALS: regular rate, regular rhythm, S1 normal heart sound present and S2 normal heart sound present RATE: regular rate RHYTHM: regular rhythm HEART SOUNDS: S1 normal heart sound present and S2 normal heart sound present GI: COMMON NORMALS: Normal to inspection, nondistended, normoactive bowel sounds present and non-tender Extremity: COMMON NORMALS: no pedal edema Neuro: COMMON NORMALS: patient oriented x3 Psych: COMMON NORMALS: mental status grossly normal Data : 05/07/22 04:27 05/07/22 04:27 A&P Assessment and plan (1) Pancreatitis, acute: Status: Acute Plan Acute severe pancreatitis -MRCP -1.? Findings compatible with acute pancreatitis as described above. No drainable fluid collections or pseudocyst. 2.? Hepatomegaly with diffuse fatty infiltration of the liver. No intrahepatic biliary ductal dilatation. 3.? Normal intrahepatic ducts and common bile duct. 4.? Stable hemangioma in the RIGHT hepatic lobe. 5.? Small amount of edema about the kidneys bilaterally can be seen with renal insufficiency. 6.? Small bilateral pleural effusions. 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
--- NOTE | 2022-05-07 12:01 | XRR_ITS ---
PROCEDURE INFORMATION: Exam: XR Abdomen Exam date and time: 05/07/2022 4:16 PM Age: 31 years old Clinical indication: Abdominal pain; Flank; Upper; Additional info: Bilateral flank pain with pnacreatitis TECHNIQUE: Imaging protocol: Radiologic exam of the abdomen. Views: Frontal supine view of the abdomen. 1 View. COMPARISON: MR MRCP [id number] 05/05/2022 11:15 AM FINDINGS: Gastrointestinal tract: Normal. No bowel dilation. Bones/joints: Unremarkable. XR/XR KUB portable [id number] IMPRESSION: No acute findings.
[2022-05-07 18:36] LABS: Basophils % 0.3 %; Eosinophils # 0.1 10^3/uL (0.0-0.8); Eosinophils % 0.7 %; Hematocrit 34.6 % (42.0-52.0); Hemoglobin 11.7 g/dL (11.7-16.6); Lymphocytes # 1.1 10^3/uL (0.8-4.8); Mean Corpuscular HGB Conc 33.8 g/dL (30.0-36.0); Mean Corpuscular Hemoglobin 32.8 pg (28.0-34.0); Mean Corpuscular Volume 96.9 fl (80-94); Mean Platelet Volume 11.4 fL (7.4-10.4); Monocytes # 0.8 10^3/uL (0.2-0.9); Monocytes % 10.1 %; Neutrophils % 74.6 %; Nucleated Red Blood Cells % 0 %; Platelet Count 99 10^3/cmm (130-400); Red Blood Count 3.57 10^6/uL (4.1-5.3); Red Cell Distribution Width 13.4 % (12.1-15.1); White Blood Count 7.5 10^3/uL (4.0-10.0)
[2022-05-07] MEDS: zolpidem 5 mg Tablet PO (20:48)
[2022-05-08] VITALS (15 sets, daily range): BP systolic 134–158; BP diastolic 72–100; PULSE 71–88; RESP 14–18; TEMP 36.7–37.3; O2SAT 92–98
[2022-05-08] MEDS: ondansetron 2 mg/ML SDV 2 mL 4 MG IVP ×2 (02:39→14:51)
[2022-05-08] MEDS: HYDROmorphone 1 mg/mL INJ 1 mL IVP ×3 (02:39→19:49)
[2022-05-08 03:27] LABS: Basophils % 0.3 %; Eosinophils # 0.1 10^3/uL (0.0-0.8); Hematocrit 32.8 % (42.0-52.0); Hemoglobin 11.1 g/dL (11.7-16.6); Lymphocytes # 0.8 10^3/uL (0.8-4.8); Lymphocytes % 12.9 %; Mean Corpuscular HGB Conc 33.8 g/dL (30.0-36.0); Mean Corpuscular Volume 97.6 fl (80-94); Mean Platelet Volume 11.6 fL (7.4-10.4); Monocytes # 0.7 10^3/uL (0.2-0.9); Monocytes % 11.4 %; Neutrophils # 4.66 10^3/uL (1.8-7.7); Neutrophils % 73.9 %; Nucleated Red Blood Cells % 0 %; Platelet Count 95 10^3/cmm (130-400); Red Blood Count 3.36 10^6/uL (4.1-5.3); Red Cell Distribution Width 13.4 % (12.1-15.1); White Blood Count 6.3 10^3/uL (4.0-10.0)
[2022-05-08 03:41] LABS: Lactate (Lactic Acid level) 0.7 mmol/L (0.5-2.2)
[2022-05-08 03:54] LABS: Alanine Aminotransferase 84 U/L (0-41); Albumin Level 2.8 g/dL (3.5-5.2); Alkaline Phosphatase 83 IU/L (40-130); Anion Gap 13.1 (5-19); Aspartate Amino Transferase 88 U/L (0-40); Blood Urea Nitrogen 6 mg/dL (6-20); C Reactive Protein 193.9 mg/L (0.0-4.9); Calcium 8.1 mg/dL (8.5-10.5); Carbon Dioxide 24 mmol/L (22-29); Chloride 102 mmol/L (98-107); Globulin 2.8 g/dL (1.3-4.6); Glomerular Filtration Rate 193.9 mL/min (90-130); Glucose 114 mg/dL (65-115); Lipase 92 U/L (13-60); Magnesium 1.9 mg/dL (1.7-2.3); Osmolality Calculated 280 mOsm/kg (285-295); Phosphorus 2.9 mg/dL (2.5-4.5); Potassium 3.1 mmol/L (3.5-5.1); Sodium 136 mmol/L (136-145); Total Bilirubin 1.4 mg/dL (0.15-1.2); Total Protein 5.6 g/dL (6.6-8.7)
[2022-05-08 03:58] LABS: Procalcitonin 0.25 ng/mL (0-0.5)
[2022-05-08] MEDS: oxyCODONE 5 mg IR Tab/Cap PO ×2 (05:05→14:46)
[2022-05-08] MEDS: sodium chloride 0.9% 1,000 ML 75 ML IV (06:24)
[2022-05-08] MEDS: pantoprazole 40 mg SDV IVP ×2 (09:00→20:10)
[2022-05-08] MEDS: sucralfate 1 gm/10 mL Oral Liq UDC PO ×2 (09:01→17:35)
[2022-05-08] MEDS: metoprolol tartrate 50 mg Tablet 100 MG PO ×2 (09:01→20:10)
[2022-05-08] MEDS: cloNIDine 0.1 mg Tablet PO ×2 (09:01→17:35)
[2022-05-08] MEDS: thiamine 100 mg Tablet PO (09:01)
[2022-05-08] MEDS: multivitamin therapeutic Tablet 1 TAB PO (09:01)
[2022-05-08] MEDS: phosphorus 250 mg Tablet PO ×2 (09:01→17:36)
[2022-05-08] MEDS: folic acid 1 mg Tablet PO (09:01)
[2022-05-08] MEDS: magnesium sulfate premix 2 GM/50 ML PIGGYBACK IV (09:07)
--- NOTE | 2022-05-08 12:39 | P.PN_ITS ---
Subjective Subjective: Patient was seen this morning, he tells me that his abdominal pain is significantly resolved, he has been tolerating ice chips well, he does not want to be put back on TPN, he wants to see if he can tolerate a clear liquid diet, no nausea, no vomiting, had bowel movements yesterday Vitals/I&O/Wt Last Vital Signs Temp 98.4 F 05/08/22 11:22 Pulse 79 05/08/22 11:22 Resp 18 05/08/22 11:22 BP 134/76 05/08/22 11:22 Pulse Ox 95 05/08/22 11:22 O2 Del Method 05/08/22 11:22 05/07/22 05/08/22 05/08/22 22:59 06:59 14:59 Intake Total 556.667 / 5802.362 7808 / 2681.667 360.466 / 360.466 Output Total 300 / 300 900 / 1200 Balance 256.667 / 1331.667 150 / 1481.667 360.466 / 360.466 Weight last 48 hrs Weight 110.223 kg Physical Exam Const: COMMON NORMALS: no acute distress and patient oriented x3 Resp: COMMON NORMALS: normal respiratory effort, No retractions, No use of accessory muscles and clear to auscultation bilaterally AUSCULTATION: clear to auscultation bilaterally Cardio: COMMON NORMALS: regular rate, regular rhythm, S1 normal heart sound present and S2 normal heart sound present RATE: regular rate RHYTHM: regular rhythm HEART SOUNDS: S1 normal heart sound present and S2 normal heart sound present GI: COMMON NORMALS: Normal to inspection, nondistended, normoactive bowel sounds present and non-tender Extremity: COMMON NORMALS: no pedal edema Neuro: COMMON NORMALS: patient oriented x3 Psych: COMMON NORMALS: mental status grossly normal Data : 05/08/22 03:08 05/08/22 03:08 A&P Assessment and plan (1) Pancreatitis, acute: Status: Acute Plan Acute severe pancreatitis -MRCP -1.? Findings compatible with acute pancreatitis as described above. No drainable fluid collections or pseudocyst. 2.? Hepatomegaly with diffuse fatty infiltration of the liver. No intrahepatic biliary ductal dilatation. 3.? Normal intrahepatic ducts and common bile duct. 4.? Stable hemangioma in the RIGHT hepatic lobe. 5.? Small amount of edema about the kidneys bilaterally can be seen with renal insufficiency. 6.? Small bilateral pleural effusions. -CRP to 77.3, -Transaminitis -Lipase 453 -WBC 10.5 -Platelet count 95, will hold Lovenox, HIT panel, advised to continue to ambulate Transition to clears, hold TPN -Serial abdominal exams -Protonix 40 IV twice daily -Carafate as needed -Dilaudid for pain control -Zofran, promethazine for vomiting -IV fluids -PICC line placed, TPN on hold -Zosyn for antibiotic coverage -Magnesium, phosphorus, CRP -Full code -Lovenox for DVT prophylaxis Alcoholism, CIWA score Insomnia, Ambien Potential discharge in the next 24 hours Attestations Medical Necessity Statement*: Patient requires hospitalization for acute severe pancreatitis Coding Level of Care Code 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
[2022-05-08] MEDS: lidocaine 1% 5 ML in potassium chloride premix 100 ML 25 ML IV (13:38)
[2022-05-08] MEDS: piperacillin-tazobactam 3.375 GM in sodium chloride 0.9% (plus) 50 ML IV ×2 (14:45→22:21)
--- NOTE | 2022-05-08 19:50 | PC.NURSE ---
Patient requests to have home medications to send home with . Meds removed from Pyxis and given to patient's spouse. No narcotics in the sealed bag of home meds.
[2022-05-09] VITALS (9 sets, daily range): BP systolic 148–158; BP diastolic 96–114; PULSE 73–93; RESP 16–19; TEMP 36.5–36.8; O2SAT 96–98
--- NOTE | 2022-05-09 01:04 | ECG_ITS ---
[facility] Test Date: 2022-05-09 Pat Name: Buddy Cowan Department: Room: 250 Gender: Male Final Tester: : 1990 Requested By: Fatoumata Shaw Order Number: [id number] Thomas MD: Gino Islas M.D. Measurements Intervals [place] Rate: 77 P: 64 [place]: 202 QRS: 84 QRSD: 76 T: 36 QT: 368 QTc: 417 Interpretive Statements SINUS RHYTHM NONSPECIFIC T-WAVE ABNORMALITY INTERPRETATION BASED ON A DEFAULT AGE OF 40 YEARS Compared to ECG 05/06/2022 21:55:41 First degree AV block no longer present T-wave abnormality still present Electronically Signed On 05-09-2022 9:31:58 CDT by Gino Islas M.D. [email or web address] [email or web address] [email or web address].[employer]/store/[id number]
[2022-05-09] MEDS: oxyCODONE 5 mg IR Tab/Cap PO ×2 (01:07→08:43)
--- NOTE | 2022-05-09 01:19 | PC.NURSE ---
Patient reported to RN that he was having chest pain, sharp in nature clawing up to his back with dull pain in his neck. He reported the pain at 1250 to be 7/10. VS obtained, with BP slightly elevated at 155/100, otherwise all VS wnl. EKG obtained, showed sinus rhythm with nonspecific t-wave abnormality. Dr. Shaw notifed via telephone at 0103, no new orders obtained, as she stated pain was likely related to pancreatitis. Prn pain med given per verbal order from Dr. Shaw. Education provided to patient regarding pain and pancreatitis. Patient requests to be placed back on the lisinopril that he takes daily. Will continue to monitor.
[2022-05-09 03:36] LABS: Glucose Point of Care 70 mg/dL (70-110)
[2022-05-09] MEDS: HYDROmorphone 1 mg/mL INJ 1 mL IVP (03:55)
[2022-05-09 05:11] LABS: Basophils % 0.3 %; Eosinophils # 0.1 10^3/uL (0.0-0.8); Eosinophils % 1.3 %; Hematocrit 33.6 % (42.0-52.0); Lymphocytes % 16.4 %; Mean Corpuscular HGB Conc 32.7 g/dL (30.0-36.0); Mean Corpuscular Hemoglobin 32.4 pg (28.0-34.0); Mean Corpuscular Volume 99.1 fl (80-94); Mean Platelet Volume 11.4 fL (7.4-10.4); Monocytes # 0.8 10^3/uL (0.2-0.9); Monocytes % 13.9 %; Neutrophils # 4.05 10^3/uL (1.8-7.7); Neutrophils % 67.8 %; Nucleated Red Blood Cells % 0 %; Platelet Count 120 10^3/cmm (130-400); Red Blood Count 3.39 10^6/uL (4.1-5.3); Red Cell Distribution Width 13.6 % (12.1-15.1)
[2022-05-09 05:35] LABS: Alanine Aminotransferase 90 U/L (0-41); Albumin Level 3.1 g/dL (3.5-5.2); Alkaline Phosphatase 84 IU/L (40-130); Anion Gap 16.1 (5-19); Aspartate Amino Transferase 78 U/L (0-40); Blood Urea Nitrogen 7 mg/dL (6-20); C Reactive Protein 131.9 mg/L (0.0-4.9); Calcium 8.4 mg/dL (8.5-10.5); Carbon Dioxide 24 mmol/L (22-29); Chloride 102 mmol/L (98-107); Globulin 2.7 g/dL (1.3-4.6); Glomerular Filtration Rate 193.9 mL/min (90-130); Glucose 75 mg/dL (65-115); Lipase 75 U/L (13-60); Osmolality Calculated 285 mOsm/kg (285-295); Potassium 3.1 mmol/L (3.5-5.1); Sodium 139 mmol/L (136-145); Total Protein 5.8 g/dL (6.6-8.7)
[2022-05-09] MEDS: sodium chloride 0.9% 1,000 ML 75 ML IV (06:16)
[2022-05-09] MEDS: piperacillin-tazobactam 3.375 GM in sodium chloride 0.9% (plus) 50 ML IV (06:18)
[2022-05-09] MEDS: sucralfate 1 gm/10 mL Oral Liq UDC PO (08:40)
[2022-05-09] MEDS: metoprolol tartrate 50 mg Tablet 100 MG PO (08:40)
[2022-05-09] MEDS: phosphorus 250 mg Tablet PO (08:40)
[2022-05-09] MEDS: multivitamin therapeutic Tablet 1 TAB PO (08:42)
[2022-05-09] MEDS: cloNIDine 0.1 mg Tablet PO (08:42)
[2022-05-09] MEDS: thiamine 100 mg Tablet PO (08:42)
[2022-05-09] MEDS: atorvastatin 40 mg Tablet PO (08:42)
[2022-05-09] MEDS: pantoprazole 40 mg SDV IVP (08:43)
[2022-05-09] MEDS: folic acid 1 mg Tablet PO (08:43)
--- NOTE | 2022-05-09 10:49 | P.DS_ITS ---
Discharge Providers Date of Admission: 05/04/22 13:56 Date of Discharge: May 09, 2022 Attending Provider at Admission: Troy Hopson MD Attending Provider at Discharge: Sundeep Iraheta Primary Care Provider: Antonio Alvarado MD Diagnoses at Discharge Discharge Diagnosis (1) Pancreatitis, acute: Status: Acute Reason for Visit Reason for Visit: ABD PAIN Hospital Course Hospital Course Pleasant 31-year-old gentleman was admitted and managed for acute pancreatitis, noted moderate by imaging, including IV fluids, was transiently on TPN, also received empiric antibiotics. CT abdomen pelvis with also noted worsening hepatic steatosis. Hemangioma of the liver. MRCP findings with hepatomegaly with diffuse fatty infiltration of the liver. No intrahepatic biliary ductal dilation, normal CBD, stable hemangioma in the right hepatic lobe. Small amounts of edema about the kidneys bilaterally. Small bilateral pleural effusions. His epigastric pain gradually improved. Lipase is decreasing down to 75 today. He has tolerated clear liquids well. Reports he has been getting up. As he is improving today he has decided that he must leave the hospital. He reports that he is overall feeling much better and epigastric pain is resolved. He only has some pain in his lower back which he attributes to being stuck in bed in a long time. Encouraged him to entirely abstain from any alcohol especially given recurrence of pancreatitis. Please follow-up with him, and follow-up also regarding worsening hepatic steatosis. Consider referral to gastroenterology. Discussed with him also switching omeprazole to a different medication for his GERD given list of potential adverse effect of pancreatitis. He will stop it for now, states that he has famotidine at home which he will use until a new medication can be discussed in office. Physical Exam Narrative: Family at bedside Const: COMMON NORMALS: patient oriented x3 and alert GENERAL APPEARANCE: cooperative NUTRITIONAL APPEARANCE: overweight ORIENTATION/CONSCIOUSNESS: Yes awake HENMT: COMMON NORMALS: oropharynx normal Neck/C-Spine: COMMON NORMALS: no JVD Resp: COMMON NORMALS: normal respiratory effort and clear to auscultation bilaterally AUSCULTATION: clear to auscultation bilaterally Cardio: COMMON NORMALS: no JVD, regular rhythm, S1 normal heart sound present, S2 normal heart sound present and No murmurs present (Cardio) RHYTHM: regular rhythm HEART SOUNDS: S1 normal heart sound present and S2 normal heart sound present GI: COMMON NORMALS: Normal to inspection, nondistended, normoactive bowel sounds present, Soft to palpation and non-tender PALPATION: Yes Soft to palpation Extremity: COMMON NORMALS: no joint enlargement and no pedal edema Neuro: COMMON NORMALS: patient oriented x3 and moves all extremities SENSORIUM/ORIENTATION: Yes alert Skin: COMMON NORMALS: no rashes or lesions noted GENERAL SKIN EXAM: no rashes or lesions noted Discharge Data Studies Completed and Pending Completed Studies During Hospitalization Category Date Time Status CT abdomen pelvis wo con [id number] Stat Cat Scan 05/04/22 09:11 Completed CXRP [XR chest 1V portable [id number]] Routine Exams 05/05/22 12:25 Completed XR KUB portable [id number] Routine Exams 05/07/22 12:01 Completed MR MRCP [id number] Routine MRI 05/05/22 10:15 Completed Pending at discharge Category Date Time Status Blood Culture Stat Lab 05/04/22 15:56 Results C Reactive Protein AM LABS Lab 05/10/22 04:00 Ordered C Reactive Protein AM LABS Lab 05/11/22 04:00 Ordered Complete Blood Count w/Auto AM LABS Lab 05/10/22 04:00 Ordered Complete Blood Count w/Auto AM LABS Lab 05/11/22 04:00 Ordered Comprehensive Metabolic Panel AM LABS Lab 05/10/22 04:00 Ordered Comprehensive Metabolic Panel AM LABS Lab 05/11/22 04:00 Ordered Heparin Induced Thrombocytopen Stat Lab 05/07/22 09:58 Received Lipase AM LABS Lab 05/10/22 04:00 Ordered Lipase AM LABS Lab 05/11/22 04:00 Ordered Magnesium AM LABS Lab 05/10/22 04:00 Ordered Magnesium AM LABS Lab 05/11/22 04:00 Ordered Phosphorus AM LABS Lab 05/10/22 04:00 Ordered Phosphorus AM LABS Lab 05/11/22 04:00 Ordered Radiology Impressions Abdomen/Pelvis CT 05/04/22 09:11 IMPRESSION: 1. Moderate acute pancreatitis. Progressed since 01/08/2022. No well formed pseudocyst but there is inflammation with free fluid surrounding the pancreas and the duodenal C-loop. 2. Marked hepatic steatosis and hepatomegaly. The liver has increased in size and hepatic steatosis since 2019. 3. Hyperattenuating lesion in the RIGHT lobe of the liver has been previously described and described as a hemangioma on prior imaging studies. 4. Normal appendix. Cholangiopancreatography MRI 05/05/22 10:15 Impression: 1. Findings compatible with acute pancreatitis as described above. No drainable fluid collections or pseudocyst. 2. Hepatomegaly with diffuse fatty infiltration of the liver. No intrahepatic biliary ductal dilatation. 3. Normal intrahepatic ducts and common bile duct. 4. Stable hemangioma in the RIGHT hepatic lobe. 5. Small amount of edema about the kidneys bilaterally can be seen with renal insufficiency. 6. Small bilateral pleural effusions. Chest X-Ray 05/05/22 12:25 IMPRESSION: Right-sided PICC line in satisfactory position. KUB X-Ray 05/07/22 12:01 IMPRESSION: No acute findings. Laboratory Results WBC 6.0 10^3/uL (4.0-10.0) 05/09/22 04:25 RBC 3.39 10^6/uL (4.1-5.3) L 05/09/22 04:25 Hgb 11.0 g/dL (11.7-16.6) L 05/09/22 04:25 Hct 33.6 % (42.0-52.0) L 05/09/22 04:25 MCV 99.1 fl (80-94) H 05/09/22 04:25 MCH 32.4 pg (28.0-34.0) 05/09/22 04:25 MCHC 32.7 g/dL (30.0-36.0) 05/09/22 04:25 RDW 13.6 % (12.1-15.1) 05/09/22 04:25 Plt Count 120 10^3/cmm (130-400) L 05/09/22 04:25 MPV 11.4 fL (7.4-10.4) H 05/09/22 04:25 Neut % (Auto) 67.8 % 05/09/22 04:25 Lymph % (Auto) 16.4 % 05/09/22 04:25 [place] % (Auto) 13.9 % 05/09/22 04:25 Eos % (Auto) 1.3 % 05/09/22 04:25 Baso % (Auto) 0.3 % 05/09/22 04:25 Neut # (Auto) 4.05 10^3/uL (1.8-7.7) 05/09/22 04:25 Lymph # (Auto) 1.0 10^3/uL (0.8-4.8) 05/09/22 04:25 [place] # (Auto) 0.8 10^3/uL (0.2-0.9) 05/09/22 04:25 Eos # (Auto) 0.1 10^3/uL (0.0-0.8) 05/09/22 04:25 Baso # (Auto) 0.0 10^3/uL (0.0-0.1) 05/09/22 04:25 Nucleated RBC % (auto) 0 % 05/09/22 04:25 Nucleated RBCs # 0.0 /100WBC 05/09/22 04:25 PT 14.40 SECONDS (12.1-14.9) 05/07/22 04:27 INR 1.09 (0.8-1.2) 05/07/22 04:27 Sodium 139 mmol/L (136-145) 05/09/22 04:25 Potassium 3.1 mmol/L (3.5-5.1) L 05/09/22 04:25 Chloride 102 mmol/L (98-107) 05/09/22 04:25 Carbon Dioxide 24 mmol/L (22-29) 05/09/22 04:25 Anion Gap 16.1 (5-19) 05/09/22 04:25 BUN 7 mg/dL (6-20) 05/09/22 04:25 Creatinine 0.5 mg/dL (0.7-1.2) L 05/09/22 04:25 GFR Calculation 193.9 mL/min (90-130) H 05/09/22 04:25 Glucose 75 mg/dL (65-115) 05/09/22 04:25 POC Glucose 70 mg/dL (70-110) 05/09/22 03:32 Calculated Osmolality 285 mOsm/kg (285-295) 05/09/22 04:25 Lactic Acid 5.4 mmol/L (0.5-2.2) H* 05/04/22 14:51 Lactic Acid (Sepsis) 4.4 mmol/L (0.5-2.2) H* 05/04/22 17:15 Lactate 0.7 mmol/L (0.5-2.2) 05/08/22 03:08 Calcium 8.4 mg/dL (8.5-10.5) L 05/09/22 04:25 Phosphorus 4.0 mg/dL (2.5-4.5) 05/09/22 04:25 Magnesium 2.0 mg/dL (1.7-2.3) 05/09/22 04:25 Total Bilirubin 1.0 mg/dL (0.15-1.2) 05/09/22 04:25 AST 78 U/L (0-40) H 05/09/22 04:25 ALT 90 U/L (0-41) H 05/09/22 04:25 Alkaline Phosphatase 84 IU/L (40-130) 05/09/22 04:25 Creatine Kinase 34 U/L (39-308) L 05/07/22 04:27 Troponin T Baseline 7 ng/L (0-15) 05/06/22 14:18 Troponin T 120 Minute 6.21 ng/L (0-15) 05/06/22 16:55 Delta Troponin T -0.79 ABS# (0-10) L 05/06/22 16:55 Troponin T Hi Sens 6Hr 7.22 ng/L (0-15) 05/06/22 20:16 Troponin T Hi Sens 6Hr Delta 0.22 ng/L (0-12) 05/06/22 20:16 C-Reactive Protein 131.9 mg/L (0.0-4.9) H 05/09/22 04:25 Total Protein 5.8 g/dL (6.6-8.7) L 05/09/22 04:25 Albumin 3.1 g/dL (3.5-5.2) L 05/09/22 04:25 Globulin 2.7 g/dL (1.3-4.6) 05/09/22 04:25 Triglycerides 126 mg/dL (0-150) 05/04/22 14:51 Cholesterol 184 mg/dL (0-200) 05/04/22 14:51 LDL Cholesterol, Calc 102 mg/dL (50-129) 05/04/22 14:51 HDL Cholesterol 57 mg/dL (60-100) L 05/04/22 14:51 LDL/HDL Ratio 1.79 RATIO (0.00-3.22) 05/04/22 14:51 Cholesterol/HDL Ratio 3.23 mg/dL (1.0-5.00) 05/04/22 14:51 Lipase 75 U/L (13-60) H 05/09/22 04:25 Procalcitonin 0.25 ng/mL (0-0.5) 05/08/22 03:08 Procalcitonin Cancelled 05/08/22 03:08 TSH 1.04 uIU/mL (0.27-4.20) 05/04/22 14:51 Urine Color Yellow (Yellow) 05/05/22 03:03 Urine Appearance Clear (CLEAR) 05/05/22 03:03 Urine pH 6 (5-7) 05/05/22 03:03 Ur Specific [place] 1.020 (1.005-1.030) 05/05/22 03:03 Urine Protein Neg (Negative) 05/05/22 03:03 Urine Glucose (UA) Norm (Normal) 05/05/22 03:03 Urine Ketones 2+ (Negative) H 05/05/22 03:03 Urine Blood Neg (Negative) 05/05/22 03:03 Urine Nitrate Negative (Negative) 05/05/22 03:03 Urine Bilirubin Neg (Negative) 05/05/22 03:03 Urine Urobilinogen Norm mg/dL (Negative) 05/05/22 03:03 Ur Leukocyte Esterase Negative (Negative) 05/05/22 03:03 Urine Opiates Screen Positive ng/mL (Negative) H 05/05/22 03:03 Ur Barbiturates Screen Negative ng/mL (Negative) 05/05/22 03:03 Ur Phencyclidine Scrn Negative ng/mL (Negative) 05/05/22 03:03 Ur Amphetamines Screen Negative ng/mL (Negative) 05/05/22 03:03 U Benzodiazepines Scrn Positive ng/mL (Negative) H 05/05/22 03:03 Urine Cocaine Screen Negative ng/mL (Negative) 05/05/22 03:03 U Marijuana (THC) Screen Negative ng/mL (Negative) 05/05/22 03:03 Ethyl Alcohol < 10 mg/dL (0-10) 05/04/22 14:51 HIV 1&2 Ab & HIV 1 Ag Non-reactive (Non-Reactiv) 05/07/22 09:58 HIV 1&2 Antibody Non-reactive (Non-Reactiv) 05/07/22 09:58 Vitals Last Vital Signs Temp 98.3 F 05/09/22 07:12 Pulse 73 05/09/22 07:12 Resp 18 05/09/22 08:43 BP 148/96 05/09/22 08:42 Pulse Ox 96 05/09/22 08:43 O2 Del Method 05/08/22 11:22 Discharge Plan Discharge Patient Disposition: Home Condition: Stable Prescriptions: New acetaminophen 500 mg tablet 500 mg PO QID PRN (Reason: pain) Qty: 60 0RF potassium chloride 20 mEq tablet extended release 20 meq PO DAILY Qty: 14 0RF Continued digestive enzymes Tablet 1 tab PO DAILY resveratrol 250 mg capsule 250 mg PO DAILY atorvastatin 40 mg tablet 40 mg PO DAILY Qty: 30 5RF ondansetron HCl 8 mg tablet 8 mg PO Q8H PRN (Reason: nausea and vomiting) 30 Days Qty: 60 0RF mirtazapine 15 mg tablet See Rx Instructions .ROUTE .COMPLEX Qty: 30 5RF Dose Instruction: TAKE 1 TABLET BY MOUTH EVERY NIGHT AT BEDTIME FOR MENTAL HEALTH Rx Instructions: TAKE 1 TABLET BY MOUTH EVERY NIGHT AT BEDTIME FOR MENTAL HEALTH clonidine HCl 0.1 mg tablet 0.1 mg PO BID Qty: 60 1RF lisinopril 40 mg Tablet 40 mg PO QAM sucralfate [Carafate] 100 mg/mL suspension 1 g PO TID PRN (Reason: GERD) metoprolol tartrate 100 mg tablet 100 mg PO BID trazodone 50 mg tablet 25 mg PO BEDTIME metoclopramide HCl [Reglan] 10 mg tablet 10 mg PO Q6H PRN (Reason: nausea and vomiting) Qty: 14 0RF Discontinued omeprazole 40 mg capsule,delayed release(DR/EC) 40 mg PO DAILY Rx Instructions: TAKE 1 CAPSULE BY MOUTH DAILY FOR ACID REFLUX Discharge Orders: Discharge Order (Routine); Ordered 05/09/22 Ordered By: Sundeep Iraheta Referrals: Antonio Alvarado MD [Primary Care Provider] - 4-7 days Discharge Diet: Advance as tolerated Discharge Activity: Increase activity as tolerated Patient Instructions: Potassium Chloride (By mouth), Pancreatitis (GEN) Activity Restrictions/Additional Instructions: Please avoid any alcohol. Please follow-up with your primary doctor regarding pancreatitis. Discuss referral for follow-up with gastroenterology due to recurrent pancreatitis. Please discuss with your primary doctor regarding worsening hepatic steatosis. Similarly avoid any alcohol. Discuss follow-up with gastroenterology. Please discuss with your primary doctor alternative medication to omeprazole as it may in some cases have adverse effect of pancreatitis. You may use famotidine for now, 20 mg twice a day. Please discuss and have your primary doctor follow-up potassium and phosphorus levels which were noted low. Discharge Attestations Time Spent in Discharge Care*: greater than 30 min Quality Metrics Clinical Quality Measures [ No reported AMI, CVA or VTE this stay] Coding Level of Care Code Acute [facility] note Diagnoses Pancreatitis, acute K85.90
[2022-05-11 14:49] LABS: Heparin Induced Platelet AB NEGATIVE (NEGATIVE); Patient O.D 0.077
[2022-05-12 21:28] LABS: UFH High Dose, 100 IU/ML 0 % release; UFH Low Dose, 0.1 IU/ML 0 % release; UFH Low Dose, 0.5 IU/ML 0 % release; UFH SRA Result NEGATIVE (NEGATIVE)
== END 2022-05-09 11:40 | disposition home or self-care (01) | DRG 440 ==
LOC: ER 12:09 → MEDSURG 13:48
PROVIDERS: Admitting Provider Family Medicine; Emergency Provider Family Medicine; PCP Family Medicine Adult Medicine; Visit Provider Internal Medicine
DX: K85.90 Acute pancreatitis without necrosis or infection, unspecified (principal); K76.0 Fatty (change of) liver, not elsewhere classified; D18.03 Hemangioma of intra-abdominal structures; K21.9 Gastro-esophageal reflux disease without esophagitis; I10 Essential (primary) hypertension; E78.5 Hyperlipidemia, unspecified; F10.10 Alcohol abuse, uncomplicated; G47.00 Insomnia, unspecified; Z63.5 Disruption of family by separation and divorce
CPT/HCPCS: 36415; 36416; 36569; 71045; 74018; 74176; 74181; 80053; 80061; 80306; 80307; 80503; 81003; 82550; 82962; 83605; 83690; 83735; 84100; 84145; 84443; 84484; 85025; 85610; 86140; 87040; 87806; 93005; 96372; 96374; 96375; 96376; 99285; C9113; J1170; J1650; J2270; J2405; J2543; J2550; J3411; J3475; J3480; J3490; J7030

== ENCOUNTER 2022-06-13 06:08 | Emergency (ER) | payer MEDICAID, SELFPAY ==
[2022-06-13] VITALS (66 sets, daily range): BP systolic 123–175; BP diastolic 62–102; PULSE 93–134; RESP 13–95; TEMP 36.9–37.2; O2SAT 95–100; BMI 34.7
[2022-06-13 06:17] LABS: Glucose Point of Care 97 mg/dL (70-110)
--- NOTE | 2022-06-13 06:39 | CTR_ITS ---
PROCEDURE INFORMATION: Exam: CT Abdomen And Pelvis Without Contrast Exam date and time: 06/13/2022 7:12 AM Age: 32 years old Clinical indication: Abdominal pain; Generalized TECHNIQUE: Imaging protocol: Computed tomography of the abdomen and pelvis without contrast. Radiation optimization: All CT scans at this facility use at least one of these dose optimization techniques: automated exposure control; mA and/or kV adjustment per patient size (includes targeted exams where dose is matched to clinical indication); or iterative reconstruction. COMPARISON: MR MRCP [id number] 05/05/2022 11:15 AM RADIATION DOSE METRICS: Total DLP (mGy-cm): 790.93 FINDINGS: Liver: Fatty liver. 2 cm lesion noted in the anterior inferior right hepatic lobe in keeping with an hemangioma as seen on patient's prior MRI. Gallbladder and bile ducts: No calcified stones. No ductal dilation. Pancreas: Edematous changes about the pancreas with mild peripancreatic stranding suggestive of pancreatitis. Spleen: No splenomegaly. Adrenal glands: Normal. No mass. Kidneys and ureters: No hydronephrosis. Stomach and bowel: No obstruction. No mucosal thickening. Appendix: No evidence of appendicitis. Intraperitoneal space: No free air. No significant fluid collection. Vasculature: No abdominal aortic aneurysm. Lymph nodes: No enlarged lymph nodes. Urinary bladder: Unremarkable as visualized. Reproductive: Unremarkable as visualized. Bones/joints: Unremarkable. No acute fracture. Soft tissues: Unremarkable. CT/CT abdomen pelvis [facility] [id number] IMPRESSION: Edematous changes about the pancreas with mild peripancreatic stranding suggestive of pancreatitis.
--- NOTE | 2022-06-13 06:43 | W.ED.GENADLT ---
HPI - General Adult General: Chief complaint: General Medical Stated complaint: LEG WEAKNESS Time Seen by Provider: 06/13/22 06:10 Source: patient and EMS Mode of arrival: EMS Limitations: altered mental status History of Present Illness: 32-year-old male with a known history of alcohol abuse presents to the emergency room via EMS with altered mental status. Is very difficult to get him to give anything that contributes to his history. He is complaining of a dry mouth complaint of generally not feeling well and being confused he is able to tell me where he is at he states his legs and arms are weak. He told EMS had recently been hospitalized and left AMA he was hospitalized here in early May looks like he left after being appropriately discharged by the hospitalist service there was no AMA. He tells me he vomited once a week ago he denies any hematemesis. He states he quit drinking in April however he had an admission for alcohol use in early May. At the time of that visit he had an acute pancreatitis he required TPN during that visit. At time presentation here his blood sugar is normal he has a low-grade temp he has a petechial-like rash limited to the abdomen. There is no one at the bedside to assist with history. He denies chest pain. He did indicate epigastric right upper quadrant abdominal pain but I could not get him to verbalize it. Onset (ago): unknown Location: abdomen Radiation: non-radiation Severity: moderate Quality: aching Pain Consistency: constant Relieving factors: none Exacerbating factors: none Associated symptoms: Reports confusion, decreased appetite, nausea and vomiting; Deny chest pain, cough, diaphoresis, dyspnea, fevers/chills, headache(s), malaise, rash, palpitations, seizures, short of breath, syncope or weakness Treatments prior to arrival: none Review of Systems General: Reports: ROS unobtainable due to mental status Const: Denies: malaise or diaphoresis ENMT: Denies: throat pain, ear or mastoid pain, nasal discharge or nasal congestion Card: Denies: chest pain, palpitations or syncope Resp: Denies: dyspnea GI: Reports: abdominal pain, nausea, vomiting and GI cramping; Denies: hematemesis, coffee ground emesis or diarrhea : Denies: flank pain, difficulty urinating, dysuria, urinary frequency or urinary urgency Skin/Breast: Denies: rash Neuro: Reports: confusion; Denies: headache(s) PFSH ED PFSH: Medical History Acute posttraumatic stress disorder Alcohol abuse Anxiety and depression Generalized anxiety disorder with panic attacks GERD (gastroesophageal reflux disease) Hyperlipidemia Hypertension Insomnia Pancreatitis, acute Psychiatric care Surgical History No pertinent past surgical history Family History Father Hypertension Social History Smoking and tobacco status: never smoked Alcohol intake: current Alcohol intake frequency: 0-2 Drinks per Day Marital status: Number of children: 5 Current occupational status: employed Current gender identity: Male Physical Exam Const: GENERAL APPEARANCE: cooperative NUTRITIONAL APPEARANCE: obese ORIENTATION/CONSCIOUSNESS: Yes awake HENMT: COMMON NORMALS: normocephalic, atraumatic and hearing grossly normal bilaterally HEAD & SCALP: normocephalic and atraumatic Eye: COMMON NORMALS: Equal, round and reactive pupils present, EOMs intact bilaterally, conjunctivae normal and no scleral icterus CONJUNCTIVA: Yes conjunctivae normal PUPIL: Yes Equal, round and reactive pupils present Neck/C-Spine: COMMON NORMALS: full ROM, no lymphadenopathy, supple and no JVD Resp: COMMON NORMALS: normal respiratory effort, No retractions, No use of accessory muscles and clear to auscultation bilaterally AUSCULTATION: clear to auscultation bilaterally Cardio: COMMON NORMALS: no JVD, regular rate, regular rhythm and No murmurs present (Cardio) RATE: regular rate RHYTHM: regular rhythm GI: COMMON NORMALS: no masses AUSCULTATION: Yes Hypoactive bowel sounds present PALPATION: Yes Tenderness to palpation present (GI) (Epigastric right upper quadrant) and Yes Hepatomegaly present : COMMON NORMALS: Yes no CVA tenderness BLADDER/KIDNEY EXAM: Yes no CVA tenderness Back/Pelvis: COMMON NORMALS: no CVA tenderness Extremity: COMMON NORMALS: normal to inspection, capillary refill normal, no clubbing, cyanosis or edema, no calf tenderness and no pedal edema Skin: COMMON NORMALS: no rashes or lesions noted GENERAL SKIN EXAM: no rashes or lesions noted Course Vital Signs: Vital signs: Vital Signs Temperature 98.4 F 06/13/22 14:41 Pulse Rate 101 H 06/13/22 14:41 Respiratory Rate 20 H 06/13/22 14:41 Blood Pressure 141/88 06/13/22 14:41 Pulse Oximetry 98 06/13/22 14:41 [facility] - General Adult Medical Decision Making Reviewed lab findings with the patient. Strongly suggest he abstain from alcohol. Encouraged him to follow-up with either [facility] or [facility] meetings or some other outpatient plan. Patient is a mild staph infection of the skin use topical [id number] antibiotics and start Bactrim DS 1 p.o. twice daily written prescription given Medical Records I reviewed the patient's medical records. Lab Data I reviewed the patient's lab results. : 06/13/22 06:21 06/13/22 10:27 Radiology Impressions Abdomen/Pelvis CT 06/13/22 06:39 IMPRESSION: Edematous changes about the pancreas with mild peripancreatic stranding suggestive of pancreatitis. Laboratory Results WBC 4.7 10^3/uL (4.0-10.0) 06/13/22 06:21 RBC 4.63 10^6/uL (4.1-5.3) 06/13/22 06:21 Hgb 14.7 g/dL (11.7-16.6) 06/13/22 06:21 Hct 43.0 % (42.0-52.0) 06/13/22 06:21 MCV 92.9 fl (80-94) 06/13/22 06:21 MCH 31.7 pg (28.0-34.0) 06/13/22 06:21 MCHC 34.2 g/dL (30.0-36.0) 06/13/22 06:21 RDW 13.4 % (12.1-15.1) 06/13/22 06:21 Plt Count 166 10^3/cmm (130-400) 06/13/22 06:21 MPV 10.0 fL (7.4-10.4) 06/13/22 06:21 Neut % (Auto) 58.6 % 06/13/22 06:21 Lymph % (Auto) 29.4 % 06/13/22 06:21 [place] % (Auto) 9.6 % 06/13/22 06:21 Eos % (Auto) 0.9 % 06/13/22 06:21 Baso % (Auto) 1.5 % 06/13/22 06:21 Neut # (Auto) 2.75 10^3/uL (1.8-7.7) 06/13/22 06:21 Lymph # (Auto) 1.4 10^3/uL (0.8-4.8) 06/13/22 06:21 [place] # (Auto) 0.5 10^3/uL (0.2-0.9) 06/13/22 06:21 Eos # (Auto) 0.0 10^3/uL (0.0-0.8) 06/13/22 06:21 Baso # (Auto) 0.1 10^3/uL (0.0-0.1) 06/13/22 06:21 Nucleated RBC % (auto) 0 % 06/13/22 06:21 Nucleated RBCs # 0.0 /100WBC 06/13/22 06:21 Specimen Type Arterial 06/13/22 07:00 Sample Site Radial, right 06/13/22 07:00 ABG pH 7.53 (7.35-7.45) H 06/13/22 07:00 ABG pCO2 17.6 mmHg (35-45) L* 06/13/22 07:00 ABG pO2 95.1 mmHg (80.0-100.0) 06/13/22 07:00 ABG HCO3 14.8 mmol/L (22-26) L 06/13/22 07:00 ABG O2 Saturation 99.0 06/13/22 07:00 ABG Base Excess -5.1 mmol/L (-2.0-2.0) L 06/13/22 07:00 Ricardo Test Pos 06/13/22 07:00 A-a O2 Gradient 3.9 mmHg (5-10) L 06/13/22 07:00 Hematocrit 43.5 % (42-52) 06/13/22 07:00 Hgb O2 Saturation 97.1 % (95-100) 06/13/22 07:00 Carboxyhemoglobin 1.2 %THgb (0.4-20.1) 06/13/22 07:00 Methemoglobin 0.8 % (0.4-1.5) 06/13/22 07:00 Total Hemoglobin 14.2 g/dL (14-18) 06/13/22 07:00 Sodium 134.0 mmol/L (131-143) 06/13/22 07:00 Potassium 3.7 mmol/L (3.5-5.0) 06/13/22 07:00 Glucose 92.0 mg/dL (70-115) 06/13/22 07:00 Ionized Calcium 1.1 mmol/L (1.1-1.4) 06/13/22 07:00 O2 Delivery Device Room air 06/13/22 07:00 [id number] Administrator ID Byron 06/13/22 07:00 Sodium 134 mmol/L (136-145) L 06/13/22 10:27 Potassium 4.0 mmol/L (3.5-5.1) 06/13/22 10:27 Chloride 95 mmol/L (98-107) L 06/13/22 10:27 Carbon Dioxide 20 mmol/L (22-29) L 06/13/22 10:27 Anion Gap 23.0 (5-19) H 06/13/22 10:27 BUN 7 mg/dL (6-20) 06/13/22 10:27 Creatinine 0.6 mg/dL (0.7-1.2) L 06/13/22 10:27 GFR Calculation 156.1 mL/min (90-130) H 06/13/22 10:27 Glucose 76 mg/dL (65-115) 06/13/22 10:27 POC Glucose 97 mg/dL (70-110) 06/13/22 06:13 Calculated Osmolality 275 mOsm/kg (285-295) L 06/13/22 10:27 Lactic Acid 5.8 mmol/L (0.5-2.2) H* 06/13/22 06:21 Lactic Acid (Sepsis) 5.4 mmol/L (0.5-2.2) H* 06/13/22 09:07 Calcium 8.7 mg/dL (8.5-10.5) 06/13/22 10:27 Magnesium 1.6 mg/dL (1.7-2.3) L 06/13/22 07:08 Total Bilirubin 1.1 mg/dL (0.15-1.2) 06/13/22 07:08 AST 41 U/L (0-40) H 06/13/22 07:08 ALT 42 U/L (0-41) H 06/13/22 07:08 Alkaline Phosphatase 93 U/L (40-130) 06/13/22 07:08 Creatine Kinase 94 U/L (39-308) 06/13/22 07:08 Troponin T Baseline 6 ng/L (0-15) 06/13/22 07:08 Troponin T 120 Minute 6.00 ng/L (0-15) 06/13/22 09:07 Delta Troponin T 0 ABS# (0-10) 06/13/22 09:07 Troponin T Hi Sens 6Hr 6.00 ng/L (0-15) 06/13/22 13:05 Troponin T Hi Sens 6Hr Delta 0 ng/L (0-12) 06/13/22 13:05 Total Protein 6.8 g/dL (6.6-8.7) 06/13/22 07:08 Albumin 4.6 g/dL (3.5-5.2) 06/13/22 07:08 Globulin 2.2 g/dL (1.3-4.6) 06/13/22 07:08 Lipase 52 U/L (13-60) 06/13/22 07:08 Urine Color Dark yellow (Yellow) 06/13/22 11:57 Urine Appearance Clear (CLEAR) 06/13/22 11:57 Urine pH 6 (5-7) 06/13/22 11:57 Ur Specific [place] 1.015 (1.005-1.030) 06/13/22 11:57 Urine Protein Trace (Negative) 06/13/22 11:57 Urine Glucose (UA) Norm (Normal) 06/13/22 11:57 Urine Ketones 3+ (Negative) H 06/13/22 11:57 Urine Blood Neg (Negative) 06/13/22 11:57 Urine Nitrate Negative (Negative) 06/13/22 11:57 Urine Bilirubin Neg (Negative) 06/13/22 11:57 Urine Urobilinogen Norm mg/dL (Negative) 06/13/22 11:57 Ur Leukocyte Esterase Trace (Negative) H 06/13/22 11:57 Urine RBC None /hpf (0-2) 06/13/22 11:57 Urine WBC 0-4 /hpf (0-5) H 06/13/22 11:57 Ur Squamous Epith Cells None /hpf (0-5) 06/13/22 11:57 Amorphous Sediment Not Reportable 06/13/22 11:57 Urine Bacteria Trace /hpf (NONE) 06/13/22 11:57 Urine Mucus 1+ /hpf 06/13/22 11:57 Salicylates < 0.3 mg/dL (3-10) L 06/13/22 07:08 Urine Opiates Screen Negative ng/mL (Negative) 06/13/22 11:57 Acetaminophen < 5.0 ug/mL (10-30) L 06/13/22 07:08 Ur Barbiturates Screen Negative ng/mL (Negative) 06/13/22 11:57 Ur Phencyclidine Scrn Negative ng/mL (Negative) 06/13/22 11:57 Ur Amphetamines Screen Negative ng/mL (Negative) 06/13/22 11:57 U Benzodiazepines Scrn Positive ng/mL (Negative) H 06/13/22 11:57 Urine Cocaine Screen Negative ng/mL (Negative) 06/13/22 11:57 U Marijuana (THC) Screen Negative ng/mL (Negative) 06/13/22 11:57 Ethyl Alcohol 132 mg/dL (0-10) H 06/13/22 07:08 Serum Ketones Negative (Negative) 06/13/22 06:21 Lyme Ab (Western Blot) <0.90 index 06/13/22 13:05 E. chaffeensis IgG Ab <1:64 06/13/22 13:05 E. chaffeensis IgM Ab <1:20 06/13/22 13:05 E. chaffeensis Interp See note 06/13/22 13:05 E. chaffeensis Comment Not Reportable 06/13/22 13:05 Rickettsia IgG Ab Not detected 06/13/22 13:05 Rickettsia IgM Ab Not detected 06/13/22 13:05 Group A Strep Rapid Negative (Negative) 06/13/22 07:37 Discharge Plan Discharge Patient Disposition: Home Clinical Impression: Alcohol abuse, Staph skin infection, Alcoholic gastritis Condition: Stable Prescriptions: Changed omeprazole 40 mg capsule,delayed release(DR/EC) 40 mg PO BID Qty: 30 0RF No Action digestive enzymes Tablet 1 tab PO DAILY resveratrol 250 mg capsule 250 - 500 mg PO DAILY PRN (Reason: Inflammation) atorvastatin 40 mg tablet 40 mg PO DAILY Qty: 30 5RF ondansetron HCl 8 mg tablet 8 mg PO Q8H PRN (Reason: nausea and vomiting) 30 Days Qty: 60 0RF metoclopramide HCl [Reglan] 10 mg tablet 10 mg PO Q6H PRN (Reason: nausea and vomiting) Qty: 90 1RF lisinopril 40 mg Tablet 20 - 40 mg PO QAM sucralfate [Carafate] 100 mg/mL suspension 1 g PO TID PRN (Reason: ulcers) metoprolol tartrate 100 mg tablet 50 mg PO QAM trazodone 50 mg tablet 25 mg PO BEDTIME potassium chloride 20 mEq tablet extended release 20 meq PO DAILY Qty: 14 0RF clonidine HCl 0.1 mg tablet 0.1 mg PO DAILY vitamin B complex Tablet 1 tab PO DAILY PRN (Reason: unknown) potassium gluconate 595 mg (99 mg) Tablet 595 mg PO DAILY PRN (Reason: Muscle Pain) Adult Multivitamin Gummies 200 mcg Tablet,Chewable 2 tab PO DAILY Probiotic 3 billion cell Capsule 3,000 mmu cells PO DAILY Rx Instructions: administer with a meal magnesium oxide 400 mg magnesium Tablet 400 mg PO DAILY Discharge Orders: Discharge ED (Routine); Ordered 06/13/22 Ordered By: Igor Diaz Referrals: Antonio Alvarado MD [Primary Care Provider] - Discharge Diet: Usual diet Discharge Activity: Increase activity as tolerated Activity Restrictions/Additional Instructions: Abstinence from alcohol. Recommend following up with a treatment program such as [facility] or [facility]. Increase your omeprazole to 40 mg twice daily for 2 weeks. Start Bactrim DS 1 p.o. twice daily. Follow-up with your doctor within the next week return if you have worsening problems. Coding Level of Care Code ED Hydraulic Chair Assembler for Al Fwd Exam Comprehensive
[2022-06-13 07:01] LABS: Basophils # 0.1 10^3/uL (0.0-0.1); Basophils % 1.5 %; Eosinophils % 0.9 %; Hemoglobin 14.7 g/dL (11.7-16.6); Lymphocytes # 1.4 10^3/uL (0.8-4.8); Lymphocytes % 29.4 %; Mean Corpuscular HGB Conc 34.2 g/dL (30.0-36.0); Mean Corpuscular Hemoglobin 31.7 pg (28.0-34.0); Mean Corpuscular Volume 92.9 fl (80-94); Monocytes # 0.5 10^3/uL (0.2-0.9); Monocytes % 9.6 %; Neutrophils # 2.75 10^3/uL (1.8-7.7); Neutrophils % 58.6 %; Nucleated Red Blood Cells % 0 %; Platelet Count 166 10^3/cmm (130-400); Red Blood Count 4.63 10^6/uL (4.1-5.3); Red Cell Distribution Width 13.4 % (12.1-15.1); White Blood Count 4.7 10^3/uL (4.0-10.0)
[2022-06-13 07:06] LABS: ABG PH Result 7.53 (7.35-7.45); Alveolar-Arterial Oxygen Gradi 3.9 mmHg (5-10); Arterial Blood Gas Hematocrit 43.5 % (42-52); Base Excess ABG -5.1 mmol/L (-2.0-2.0); Blood Gas Allen Test Pos; Blood Gas Sample Site Radial, right; Blood Gas Sample Type Arterial; Carboxyhemoglobin 1.2 %THgb (0.4-20.1); HCO3 ABG 14.8 mmol/L (22-26); HGB O2 Sat 97.1 % (95-100); Ionized Calcium Level - ABG 1.1 mmol/L (1.1-1.4); Methemoglobin 0.8 % (0.4-1.5); Oxygen Device ROOM AIR; PO2 ABG 95.1 mmHg (80.0-100.0); Potassium Level - ABG 3.7 mmol/L (3.5-5.0); Total Hemoglobin 14.2 g/dL (14-18)
[2022-06-13 07:07] LABS: Ketone (Acetest) Serum Negative (Negative)
[2022-06-13 07:18] LABS: Lactic Sepsis W/Reflex 5.8 mmol/L (0.5-2.2)
[2022-06-13 07:28] LABS: Troponin(5th) Baseline 6 ng/L (0-15)
[2022-06-13] MEDS: piperacillin-tazobactam 3.375 GM in sodium chloride 0.9% (plus) 50 ML IV (07:28)
[2022-06-13 07:30] LABS: Alanine Aminotransferase 42 U/L (0-41); Albumin Level 4.6 g/dL (3.5-5.2); Alcohol Level 132 mg/dL (0-10); Alkaline Phosphatase 93 U/L (40-130); Anion Gap 29.9 (5-19); Aspartate Amino Transferase 41 U/L (0-40); Blood Urea Nitrogen 7 mg/dL (6-20); Calcium 9.1 mg/dL (8.5-10.5); Carbon Dioxide 15 mmol/L (22-29); Chloride 92 mmol/L (98-107); Creatine Phosphokinase 94 U/L (39-308); Globulin 2.2 g/dL (1.3-4.6); Glomerular Filtration Rate 156.1 mL/min (90-130); Glucose 88 mg/dL (65-115); Lipase 52 U/L (13-60); Magnesium 1.6 mg/dL (1.7-2.3); Osmolality Calculated 273 mOsm/kg (285-295); Potassium 3.9 mmol/L (3.5-5.1); Sodium 133 mmol/L (136-145); Total Bilirubin 1.1 mg/dL (0.15-1.2); Total Protein 6.8 g/dL (6.6-8.7)
[2022-06-13 07:32] LABS: Acetaminophen < 5.0 ug/mL (10-30); Salicylate < 0.3 mg/dL (3-10)
[2022-06-13 07:57] LABS: Rapid Strep A Test Negative (Negative)
[2022-06-13] MEDS: LORazepam 2 mg Tablet PO (08:27)
--- NOTE | 2022-06-13 08:30 | PC.PHAR ---
pt states he takes care of his own medications-rx filled 05/20/22 30d/s for clonidine 0.1mg bid pt states just takes 0.1mg daily-rx filled for lisinopril 40mg qam on 05/21/22 30d/s-pt states takes 20-40mg qam depending on his blood pressure-rx filled 05/21/22 30d/s for metoprolol tartrate 100mg bid-pt states he is trying to get off this medication-states he is just taking 50mg qam pt states he thinks this medication is making him sterile-rx filled 05/09/22 14d/s for kcl 20meq daily pt states for the last week he has been taking everyday states when he got out of the hospital last time he didnt take them like he should so he started taking last week pt states sometimes he takes otc kcl prn-notes are made in the pharmacy comments
[2022-06-13 08:34] LABS: ABG PCO2 17.6 mmHg (35-45)
--- NOTE | 2022-06-13 08:38 | ECG_ITS ---
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 Measurements Intervals [place] Rate: 99 P: 57 VT: 179 QRS: 45 QRSD: 77 T: 52 QT: 339 QTc: 436 Interpretive Statements SINUS RHYTHM Compared to ECG 05/09/2022 00:52:01 T-wave abnormality no longer present Electronically Signed On 06-13-2022 19:06:36 CDT by Gisella Gaytan M.D. [email or web address] Labanderson regional medical centerZia Beverage Co.magruder hospitalShnergle/store/OM/[id number]
[2022-06-13 08:46] LABS: Reflex Lactate Order REFLEX LACTIC ORDERD
--- NOTE | 2022-06-13 08:54 | PC.NURSE ---
pt hyperventilating, attempted breathing exercises with pt, pt reports feeling lightheaded. pt requesting something for anxiety, physician notified and verbal order received for ativan
--- NOTE | 2022-06-13 08:55 | PC.NURSE ---
pt sitting up in bed, anxious. requesting a cold mill supervisor for confession. pt states he is afraid that he is dying and that his rash is his blood hemorrhaging through his skin. pt states he drank over the weekend, last drink was around midnight. physician notified.
[2022-06-13 09:31] LABS: Lactic Acid level (Lactate) 5.4 mmol/L (0.5-2.2)
[2022-06-13 09:39] LABS: Troponin 5 2HR Delta 0 ABS# (0-10)
--- NOTE | 2022-06-13 10:42 | PC.NURSE ---
lang interpreter at bedside with patient.
[2022-06-13 10:53] LABS: Blood Urea Nitrogen 7 mg/dL (6-20); Calcium 8.7 mg/dL (8.5-10.5); Carbon Dioxide 20 mmol/L (22-29); Chloride 95 mmol/L (98-107); Glomerular Filtration Rate 156.1 mL/min (90-130); Glucose 76 mg/dL (65-115); Osmolality Calculated 275 mOsm/kg (285-295); Sodium 134 mmol/L (136-145)
[2022-06-13] MEDS: folic acid 1 MG, multivitamin inj 10 ML, thiamine 100 MG in sodium chloride 0.9% 1,000 ML 252.8 MG IV (11:27)
[2022-06-13 12:18] LABS: Amphetamines Screen Urine Negative (Negative); Barbiturates Screen Urine Negative (Negative); Benzodiazepines Screen Urine Positive (Negative); Cocaine Screen Urine Negative (Negative); Opiate Screen Urine Negative (Negative); PCP Screen Urine Negative (Negative); THC Screen Urine Negative (Negative)
[2022-06-13 12:28] LABS: Specific Gravity, Urine 1.015 (1.005-1.030); Urine Appearance Clear (CLEAR); Urine Color Dark Yellow (Yellow); pH Urine 6 (5-7)
[2022-06-13 12:29] LABS: Add Urine Culture? No; Add Urine Microscopic? YES; Bacteria Urine TRACE /hpf; Bilirubin Urine Neg (Negative); Blood Urine Neg (Negative); Glucose Urine UA Norm (Normal); Ketones Urine 3+ (Negative); Leukocyte Esterase Urine Trace (Negative); Mucus Urine 1+ /hpf; Nitrate Urine Negative (Negative); Protein Urine Trace (Negative); Urobilinogen Urine Norm (Negative); WBC Urine 0-4 /hpf (0-5)
--- NOTE | 2022-06-13 13:08 | ECG_ITS ---
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 Measurements Intervals [place] Rate: 106 P: 66 [place]: 174 QRS: 56 QRSD: 82 T: 50 QT: 327 QTc: 435 Interpretive Statements SINUS TACHYCARDIA Compared to ECG 06/13/2022 08:42:06 Sinus rhythm no longer present Electronically Signed On 06-13-2022 19:05:10 CDT by Gisella Gaytan M.D. [email or web address] centerKweliaohio[facility].[employer]/store/OM/[id number]
[2022-06-13 13:51] LABS: Troponin 5 6HR Delta 0 ng/L (0-12)
--- NOTE | 2022-06-13 13:51 | ECG_ITS ---
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 Measurements Intervals [place] Rate: 102 P: 66 ME: 175 QRS: 58 QRSD: 80 T: 47 QT: 324 QTc: 423 Interpretive Statements SINUS TACHYCARDIA Compared to ECG 06/13/2022 13:08:31 No significant changes Electronically Signed On 06-13-2022 18:58:47 CDT by Gisella Gaytan M.D. [id number]
[2022-06-15 15:08] LABS: Lyme AB Screen <0.90 index
[2022-06-17 21:18] LABS: E. Chaffeensis AB IGG <1:64; E. Chaffeensis AB IGM <1:20
[2022-06-25 16:42] LABS: RMSF IGG NOT DETECTED; RMSF IGM NOT DETECTED
== END 2022-06-13 14:42 | disposition home or self-care (01) ==
PROVIDERS: Emergency Provider Family Medicine; PCP Family Medicine Adult Medicine
DX: K29.20 Alcoholic gastritis without bleeding (principal); F10.10 Alcohol abuse, uncomplicated; L08.89 Other specified local infections of the skin and subcutaneous tissue; B95.8 Unspecified staphylococcus as the cause of diseases classified elsewhere; E78.5 Hyperlipidemia, unspecified; I10 Essential (primary) hypertension
CPT/HCPCS: 36415; 36416; 36600; 74176; 80048; 80051; 80053; 80306; 80307; 81001; 82009; 82330; 82550; 82805; 82962; 83605; 83690; 83735; 84484; 85025; 86618; 86666; 86757; 87040; 87081; 87880; 93005; 96361; 96374; 99285; J2543; J3411; J3490; J7030

== ENCOUNTER 2022-06-29 03:42 | Inpatient (IN) | payer MEDICAID, SELFPAY ==
[2022-06-29] VITALS (14 sets, daily range): BP systolic 131–163; BP diastolic 79–101; PULSE 89–116; RESP 14–26; TEMP 36.8–37.1; O2SAT 92–98; BMI 35.4; BMI 32.4
--- NOTE | 2022-06-29 03:45 | ECG_ITS ---
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 Measurements Intervals [place] Rate: 118 P: 74 [place]: 149 QRS: 68 QRSD: 87 T: 61 QT: 300 QTc: 421 Interpretive Statements SINUS TACHYCARDIA NONSPECIFIC T-WAVE ABNORMALITY Compared to ECG 06/13/2022 13:51:31 T-wave abnormality now present Electronically Signed On 06-29-2022 20:45:18 CDT by Gisella Gaytan M.D. [email or web address]!.NinthDecimalloma linda university medical centerSlantrange/store/OM/[id number]
--- NOTE | 2022-06-29 04:00 | ED_ITS ---
HPI - Abdominal Pain General: Chief Complaint: Abdominal Pain Stated Complaint: ABD PAIN Time Seen by Provider: 06/29/22 03:44 History of Present Illness: 32-year-old male brought in by EMS. Patient has a longstanding history of alcohol abuse and abdominal pain and pancreatitis. Griselda hammonds reports that couple days ago he drank, then he has developed epigastric pain nausea vomiting having hard time keep anything down. Patient's pain mainly in the upper abdomen. Patient feels like he needs to vomit but is unable to Associated Symptoms: Reports nausea and other (Dry heaves); Denies chills, dysuria and fever(s) Review of Systems Const: Denies: fever(s) or chills Card: Denies: chest pain or palpitations Resp: Reports: non-productive cough; Denies: dyspnea GI: Reports: abdominal pain, nausea and other (Dry heaves) : Denies: flank pain or dysuria Musc: Denies: neck pain or back pain Skin/Breast: Denies: rash Neuro: Denies: headache(s) or dizziness Psych: Denies: suicidal ideation or homicidal ideation PFSH ED PFSH: Medical History Acute posttraumatic stress disorder Alcohol abuse Anxiety and depression Generalized anxiety disorder with panic attacks GERD (gastroesophageal reflux disease) Hyperlipidemia Hypertension Insomnia Pancreatitis, acute Psychiatric care Surgical History No pertinent past surgical history Family History Father Hypertension Social History Smoking and tobacco status: never smoked Alcohol intake: current Alcohol intake frequency: 0-2 Drinks per Day Marital status: Number of children: 5 Current occupational status: employed Current gender identity: Male Physical Exam Const: GENERAL APPEARANCE: in distress (Uncomfortable) and odor of alcohol detected HENMT: COMMON NORMALS: normocephalic and atraumatic HEAD & SCALP: no rmocephalic and atraumatic Resp: COMMON NORMALS: normal respiratory effort, No use of accessory muscles and clear to auscultation bilaterally AUSCULTATION: clear to auscultation bilaterally Cardio: COMMON NORMALS: regular rate and regular rhythm RATE: regular rate RHYTHM: regular rhythm GI: COMMON NORMALS: Soft to palpation PALPATION: Yes Soft to palpation and Yes Tenderness to palpation present (GI) Details: other (Diffuse but mainly epigastric) Extremity: COMMON NORMALS: full ROM and capillary refill normal Neuro: COMMON NORMALS: moves all extremities and no focal motor deficits Psych: COMMON NORMALS: denies suicidal ideation MOOD & AFFECT: Yes anxious Skin: COMMON NORMALS: no rashes or lesions noted GENERAL SKIN EXAM: no rashes or lesions noted Course Vital Signs: Vital signs: Vital Signs Temperature 98.7 F 06/29/22 16:00 Pulse Rate 89 06/29/22 16:00 Respiratory Rate 16 06/29/22 18:16 Blood Pressure 154/79 06/29/22 16:00 Pulse Oximetry 92 06/29/22 18:16 Oxygen Delivery Me thod 06/29/22 16:00 MDM - Abdominal Pain Medical Decision Making Patient with known history of pancreatitis. Patient currently having acute flare of pancreatitis. Patient to be kept n.p.o. with advance to clear liquids, pain medicine, nausea medicine and IV fluids. Patient admitted to Dr. Hopson in stable condition for observation. Lab Data : 06/29/22 04:00 06/29/22 04:00 Labs/Radiology: Radiology Impressions Abdomen/Pelvis CT 06/29/22 06:19 IMPRESSION: 1. Findings compatible with acute pancreatitis as described above. 2. No drainable abscess or fluid collection. 3. No other significant changes compared to previous. 4. Hepatomegaly with diffuse fatty infiltration liver. Splenomegaly. 5. Small amount of free fluid in the pelvis. Laboratory Results WBC 17.3 10^3/uL (4.0-10.0) H 06/29/22 04:00 RBC 4.99 10^6/uL (4.1-5.3) 06/29/22 04:00 Hgb 16.0 g/dL (11.7-16.6) 06/29/22 04:00 Hct 45.8 % (42.0-52.0) 06/29/22 04:00 MCV 91.8 fl (80-94) 06/29/22 04:00 MCH 32.1 pg (28.0-34.0) 06/29/22 04:00 MCHC 34.9 g/dL (30.0-36.0) 06/29/22 04:00 RDW 13.2 % (12.1-15.1) 06/29/22 04:00 Plt Count 330 10^3/cmm (130-400) 06/29/22 04:00 MPV 9.2 fL (7.4-10.4) 06/29/22 04:00 Neut % (Auto) 87.3 % 06/29/22 04:00 Lymph % (Auto) 7.2 % 06/29/22 04:00 [place] % (Auto) 4.9 % 06/29/22 04:00 Eos % (Auto) 0.0 % 06/29/22 04:00 Baso % (Auto) 0.3 % 06/29/22 04:00 Neut # (Auto) 15.07 10^3/uL (1.8-7.7) H 06/29/22 04:00 Lymph # (Auto) 1.2 10^3/uL (0.8-4.8) 06/29/22 04:00 [place] # (Auto) 0.8 10^3/uL (0.2-0.9) 06/29/22 04:00 Eos # (Auto) 0.0 10^3/uL (0.0-0.8) 06/29/22 04:00 Baso # (Auto) 0.1 10^3/uL (0.0-0.1) 06/29/22 04:00 Nucleated RBC % (auto) 0 % 06/29/22 04:00 Nucleated RBCs # 0.0 /100WBC 06/29/22 04:00 Sodium 135 mmol/L (136-145) L 06/29/22 04:00 Potassium 4.4 mmol/L (3.5-5.1) 06/29/22 04:00 Chloride 92 mmol/L (98-107) L 06/29/22 04:00 Carbon Dioxide 20 mmol/L (22-29) L 06/29/22 04:00 Anion Gap 27.4 (5-19) H 06/29/22 04:00 BUN 17 mg/dL (6-20) 06/29/22 04:00 Creatinine 0.9 mg/dL (0.7-1.2) 06/29/22 04:00 GFR Calculation 97.8 mL/min (90-130) 06/29/22 04:00 Glucose 131 mg/dL (65-115) H 06/29/22 04:00 Calculated Osmolality 283 mOsm/kg (285-295) L 06/29/22 04:00 Calcium 9.3 mg/dL (8.5-10.5) 06/29/22 04:00 Total Bilirubin 1.0 mg/dL (0.15-1.2) 06/29/22 04:00 AST 52 U/L (0-40) H 06/29/22 04:00 ALT 79 U/L (0-41) H 06/29/22 04:00 Alkaline Phosphatase 95 U/L (40-130) 06/29/22 04:00 Total Protein 7.7 g/dL (6.6-8.7) 06/29/22 04:00 Albumin 4.6 g/dL (3.5-5.2) 06/29/22 04:00 Globulin 3.1 g/dL (1.3-4.6) 06/29/22 04:00 Lipase 1354 U/L (13-60) H 06/29/22 04:00 Ethyl Alcohol < 10 mg/dL (0-10) 06/29/22 04:00 Discharge Plan Discharge Patient Disposition: Admitted As Inpatient Admit Provider: Troy Hopson Clinical Impression: Pancreatitis, acute Condition: Stable Coding Level of Care Code ED Business Services Sales Agent for Chg Fwd Exam Comprehensive
[2022-06-29 04:05] LABS: Basophils # 0.1 10^3/uL (0.0-0.1); Basophils % 0.3 %; Hematocrit 45.8 % (42.0-52.0); Lymphocytes # 1.2 10^3/uL (0.8-4.8); Lymphocytes % 7.2 %; Mean Corpuscular HGB Conc 34.9 g/dL (30.0-36.0); Mean Corpuscular Hemoglobin 32.1 pg (28.0-34.0); Mean Corpuscular Volume 91.8 fl (80-94); Mean Platelet Volume 9.2 fL (7.4-10.4); Monocytes # 0.8 10^3/uL (0.2-0.9); Monocytes % 4.9 %; Neutrophils # 15.07 10^3/uL (1.8-7.7); Neutrophils % 87.3 %; Nucleated Red Blood Cells % 0 %; Platelet Count 330 10^3/cmm (130-400); Red Blood Count 4.99 10^6/uL (4.1-5.3); Red Cell Distribution Width 13.2 % (12.1-15.1); White Blood Count 17.3 10^3/uL (4.0-10.0)
[2022-06-29] MEDS: pantoprazole 40 mg SDV IVP (04:10)
[2022-06-29] MEDS: ondansetron 2 mg/ML SDV 2 mL 4 MG IVP ×3 (04:10→16:00)
[2022-06-29] MEDS: lactated ringers 1,000 ML 999 ML IV (04:11)
[2022-06-29 04:26] LABS: Alanine Aminotransferase 79 U/L (0-41); Albumin Level 4.6 g/dL (3.5-5.2); Alkaline Phosphatase 95 U/L (40-130); Anion Gap 27.4 (5-19); Aspartate Amino Transferase 52 U/L (0-40); Blood Urea Nitrogen 17 mg/dL (6-20); Calcium 9.3 mg/dL (8.5-10.5); Carbon Dioxide 20 mmol/L (22-29); Chloride 92 mmol/L (98-107); Globulin 3.1 g/dL (1.3-4.6); Glomerular Filtration Rate 97.8 mL/min (90-130); Glucose 131 mg/dL (65-115); Osmolality Calculated 283 mOsm/kg (285-295); Potassium 4.4 mmol/L (3.5-5.1); Sodium 135 mmol/L (136-145); Total Protein 7.7 g/dL (6.6-8.7)
[2022-06-29 04:27] LABS: Alcohol Level < 10 mg/dL (0-10)
[2022-06-29 04:33] LABS: Lipase 1354 U/L (13-60)
[2022-06-29] MEDS: morphine 4 mg/mL SDV 1 mL IVP (05:01)
[2022-06-29] MEDS: promethazine 25 mg/mL SDV 1 mL 12.5 MG IM (05:02)
[2022-06-29] MEDS: sodium chloride 0.9% 1,000 ML 100 ML IV (05:40)
--- NOTE | 2022-06-29 06:19 | CT_ITS ---
WS: [id number] CT ABDOMEN PELVIS TECHNIQUE: Contrast-enhanced CT of the abdomen and pelvis with coronal and sagittal reformatted image s. CLINICAL INFORMATION: pancreatitis COMPARISON: 06/13/22 DLP: 838.[address] scans at [facility] use at least one of these dose optimization techniques: automated e xposure control; mA and/or kV adjustment per patient size (includes targeted exams where dose is matc hed to clinical indication); or iterative reconstruction. FINDINGS: Diffuse inflammatory stranding and edema about the pancreatic head progressed compared to previous co mpatible with acute pancreatitis. Small amount of surrounding fluid and edema. Inflammatory changes i nvolving the adjacent duodenum reactive. Portal vein and splenic vein are patent. Hepatomegaly. Splenomegaly. Diffuse fatty infiltration liver. Lung bases are well aerated. Small amou nt of free fluid in the pelvis. Normal caliber abdominal aorta. Celiac and SMA are patent. Adrenal glands are normal. No hydronephrosis in either kidney. Normal sigmoid colon. Tiny fat-containing umbilical hernia. CT/CT abdomen pelvis w con* [id number] IMPRESSION: 1. Findings compatible with acute pancreatitis as described above. 2. No drainable abscess or fluid collection. 3. No other significant changes compared to previous. 4. Hepatomegaly with diffuse fatty infiltration liver. Splenomegaly. 5. Small amount of free fluid in the pelvis.
--- NOTE | 2022-06-29 06:21 | P.HP_ITS ---
Providers/Chief Complaint Admitting Physician: Troy Hopson MD Primary Care Provider: Antonio Alvarado MD Chief Complaint: ABD PAIN History of Present Illness Buddy Cowan is a 32 year old male with acute on chronic pancreatitis, hypertension, who presents to [facility] for abdominal pain since Monday. Patient tells me that when he was here in the hospital back in April he had severe pancreatitis, he really did not get fully back to normal since then, he has chronic abdominal pain. He tells me that he has not been abstaining from alcohol, food products tend to aggravate his abdominal pain. He tells me that on Monday he has had severe episodes of abdominal pain he does report that he drank a little bit of alcohol, little bit of wine to see if that would help with the pain but instantly had vomiting. Since Monday has had nausea, vomiting, decreased stooling. No fevers, no chills, no shortness of breath Review of Systems GI: Reports: abdominal pain, nausea and vomiting Medications/Allergies Home Medications Medication Instructions Recorded Confirmed Last Taken Type lisinopril 40 mg tablet 20 - 40 mg PO QAM 01/30/21 06/13/22 01/30/21 History sucralfate 100 mg/mL oral 1 g PO TID PRN ulcers 01/08/22 06/13/22 Unknown History suspension (Carafate) digestive enzymes 1 tab PO DAILY 01/18/22 06/13/22 Unknown History resveratrol 250 mg capsule 250 - 500 mg PO DAILY PRN 01/18/22 06/13/22 Unknown History Inflammation ondansetron HCl 8 mg tablet 8 mg PO Q8H PRN nausea and 02/04/22 06/13/22 Unknown Rx vomiting 30 days #60 tabs atorvastatin 40 mg tablet 40 mg PO DAILY High cholesterol 02/22/22 06/13/22 Unknown Rx and fats #30 tabs metoprolol tartrate 100 mg tablet 50 mg PO QAM 05/04/22 06/13/22 Unknown History trazodone 50 mg tablet 25 mg PO BEDTIME 05/04/22 06/13/22 Unknown History potassium chloride 20 mEq 20 meq PO DAILY #14 tabs 05/09/22 06/13/22 Unknown Rx tablet,extended release metoclopramide HCl 10 mg tablet 10 mg PO Q6H PRN nausea and 05/20/22 06/13/22 Unknown Rx (Reglan) vomiting #90 tabs clonidine HCl 0.1 mg tablet 0.1 mg PO DAILY 06/13/22 06/13/22 Unknown History lactobacillus combination no.4 3 3,000 mmu cells PO DAILY 06/13/22 06/13/22 Unknown History billion cell capsule (Probiotic) magnesium oxide 400 mg PO DAILY 06/13/22 06/13/22 Unknown History multivitamin with minerals-folic 2 tab PO DAILY 06/13/22 06/13/22 Unknown History acid 200 mcg chewable tablet (Adult Multivitamin Gummies) omeprazole 40 mg capsule,delayed 40 mg PO BID #30 caps 06/13/22 06/13/22 Unknown Rx release potassium gluconate 595 mg (99 mg) 595 mg PO DAILY PRN Muscle Pain 06/13/22 06/13/22 Unknown History tablet vitamin B complex 1 tab PO DAILY PRN unknown 06/13/22 06/13/22 Unknown History Allergies Allergy/AdvReac Type Severity Reaction Status Date / Time aspirin Allergy Unknown Unknown Verified 06/13/22 08:19 NSAIDS (Non-Steroidal Allergy Unknown Unknown Verified 06/13/22 08:20 Anti-Inflamma buspirone AdvReac Intermediate ADR-Anxiety Verified 06/13/22 08:19 PFSH Acute PFSH: Medical History Acute posttraumatic stress disorder Alcohol abuse Anxiety and depression Generalized anxiety disorder with panic attacks GERD (gastroesophageal reflux disease) Hyperlipidemia Hypertension Insomnia Pancreatitis, acute Psychiatric care Surgical History No pertinent past surgical history Family History Father Hypertension Social History Smoking and tobacco status: never smoked Alcohol intake: current Alcohol intake frequency: 0-2 Drinks per Day Marital status: Number of children: 5 Current occupational status: employed Current gender identity: Male Vitals/I&O/Wt Last Vital Signs Temp 98.4 F 06/29/22 03:43 Pulse 98 06/29/22 05:02 Resp 26 H 06/29/22 05:02 BP 163/101 06/29/22 05:02 Pulse Ox 93 06/29/22 05:02 O2 Del Method 06/29/22 05:02 06/28/22 06/28/22 06/29/22 14:59 22:59 06:59 Intake Total 1000 / 1000 Balance 1000 / 1000 Weight last 48 hrs Weight 108.862 kg Physical Exam Const: COMMON NORMALS: no acute distress and patient oriented x3 HENMT: COMMON NORMALS: normocephalic HEAD & SCALP: normocephalic Neck/C-Spine: COMMON NORMALS: no JVD Resp: COMMON NORMALS: normal respiratory effort, No retractions, No use of accessory muscles and clear to auscultation bilaterally AUSCULTATION: clear to auscultation bilaterally Cardio: COMMON NORMALS: no JVD, regular rate, regular rhythm, S1 normal heart sound present and S2 normal heart sound present RATE: regular rate RHYTHM: regular rhythm HEART SOUNDS: S1 normal heart sound present and S2 normal heart sound present GI: COMMON NORMALS: Soft to palpation, no masses and no bruits INSPECTION: Yes normal to inspection AUSCULTATION: Yes Hypoactive bowel sounds present PALPATION: Yes Soft to palpation and Yes Tenderness to palpation present (GI) (Diffuse tenderness) Extremity: COMMON NORMALS: capillary refill normal, no clubbing, cyanosis or edema, no calf tenderness and no pedal edema Neuro: COMMON NORMALS: patient oriented x3, CN's II-XII intact bilaterally, moves all extremities and no focal motor deficits Psych: COMMON NORMALS: mental status grossly normal Data : 06/29/22 04:00 06/29/22 04:00 A&P Assessment and plan (1) Pancreatitis, acute: Status: Acute Plan Acute on chronic pancreatitis -Keep patient n.p.o. 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
[2022-06-29] MEDS: HYDROmorphone 1 mg/mL INJ 1 mL IVP ×2 (07:20→09:41)
[2022-06-29] MEDS: iohexol 350 mg/mL 100 mL Btl IV (08:40)
[2022-06-29] MEDS: enoxaparin 40 mg/0.4 mL Syringe SUBCUT (08:49)
[2022-06-29] MEDS: piperacillin-tazobactam 3.375 GM in sodium chloride 0.9% (plus) 50 ML IV (08:50)
[2022-06-29] MEDS: lisinopril 20 mg Tablet PO (08:50)
[2022-06-29] MEDS: cloNIDine 0.1 mg Tablet PO (08:50)
--- NOTE | 2022-06-29 10:00 | ECG_ITS ---
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 Measurements Intervals [place] Rate: 103 P: 60 CO: 171 QRS: 43 QRSD: 92 T: 48 QT: 329 QTc: 431 Interpretive Statements SINUS TACHYCARDIA NONSPECIFIC T-WAVE ABNORMALITY Compared to ECG 06/29/2022 03:48:39 No significant changes Electronically Signed On 06-29-2022 20:41:08 CDT by Gisella Gaytan M.D. [id number]
--- NOTE | 2022-06-29 11:28 | PM.MISC ---
Miscellaneous Note Note: Patient was asking for analgesic and antiemetics I have given him Reglan, changed the frequency of Dilaudid Patient is laying supine Looks well-hydrated Abdomen tender midepigastric region Patient is awake and alert No active signs of encephalitis or meningitis Complaining of headache and mild hearing loss right ear Lower extremity no edema Assessment and plan Alternate Reglan with Zofran Change of frequency of Dilaudid Will use clear liquid diet for now Alcohol level undetectable Diffuse fatty infiltration of liver splenomegaly Fat around umbilical hernia Full code Patient might be able to go home tomorrow if clinically stable no need to trend lipase
[2022-06-29] MEDS: dextrose 5%-lactated ringers 1,000 ML 100 ML IV ×2 (12:01→22:07)
[2022-06-29] MEDS: HYDROmorphone 1 mg/mL INJ 1 mL 0.4 MG IVP ×5 (13:24→22:21)
[2022-06-29] MEDS: metoclopramide 5 mg/mL SDV 2 mL IVP ×2 (13:25→20:45)
--- NOTE | 2022-06-29 13:55 | PC.CHAP ---
Pastoral Care Encounter/Spiritual Assessment Type of Contact [] Declined pharmacy informatics specialist visit [] Patient/Family/Request visit [] Outpatient visit [] Follow-up visit [] Physician referral [] Code/Alert [x] Routine visit [] Staff referral [] Actively dying [] Patient sleeping [] Family support [] [] Out of room [] Palliative care [] [] Receiving care in room [] Pre-surgical visit [] Trauma [] Long length of stay [] ICU visit [] Other: Relational/Emotional Strength [] Patient feels connected with others/family/visitors/staff [x] Distress [] Loneliness/isolation [] Abandonment x Spirituality of Patient [x] Person of [place]e [] Attends Baptist of their [place] [] Believes in Prayer [] Reads Bible or Anabaptism materials [x] There are Spiritual issues to be addressed Avid Editor Interventions [x] Prayer [x Active listening [] Non-anxious presence [] Spiritual/emotional support [x] Crisis/trauma care [x] Spiritual counseling [] Bereavement support [] Provided bereavement packet [] Provided Bible/devotional materials [] Provided toy/stuffed animal, coloring book to patient or family member [] Provided Communion [] Anointing/[place] [] Salvation [] Completed spiritual assessment [] Other: Impact on Illness or Injury [] Angry [] Fearful [] Anxious [] Often cries [] Exhaustion [] Unable to work [] Unable to attend protestant [] Unable to walk/stand [] Unable to read [] Unable to drive [] Unable to eat/drink [] Unable to sleep [] Unable to be with family [] Patient intubated [] Other: Summary patient needs mental health care Time spent with patient 15 min
[2022-06-29 17:10] LABS: Add Urine Microscopic? YES; Bilirubin Urine 1+ (Negative); Blood Urine 2+ (Negative); Glucose Urine UA Norm (Normal); Ketones Urine 1+ (Negative); Leukocyte Esterase Urine Trace (Negative); Nitrate Urine Negative (Negative); Protein Urine 1+ (Negative); Specific Gravity, Urine 1.005 (1.005-1.030); Urine Appearance Clear (CLEAR); Urine Color Dark Yellow (Yellow); Urobilinogen Urine 1 mg/dL (Negative); pH Urine 7 (5-7)
[2022-06-29 17:11] LABS: Add Urine Culture? No; Bacteria Urine TRACE /hpf; Mucus Urine 1+ /hpf; RBC Urine 0-4 /hpf (0-2); Squamous Epithelial Cell Urine 0-4 /hpf (0-5); WBC Urine 0-4 /hpf (0-5)
[2022-06-30] VITALS (9 sets, daily range): BP systolic 112–145; BP diastolic 72–85; PULSE 80–95; RESP 12–18; TEMP 36.7–37.1; O2SAT 92–97
[2022-06-30] MEDS: HYDROmorphone 1 mg/mL INJ 1 mL 0.4 MG IVP ×5 (00:21→12:10)
[2022-06-30] MEDS: metoclopramide 5 mg/mL SDV 2 mL IVP (03:49)
[2022-06-30] MEDS: acetaminophen 325 mg Tablet 650 MG PO (03:49)
[2022-06-30 05:19] LABS: Basophils % 0.5 %; Eosinophils % 0.6 %; Hematocrit 35.2 % (42.0-52.0); Lymphocytes # 1.5 10^3/uL (0.8-4.8); Lymphocytes % 23.3 %; Mean Corpuscular HGB Conc 34.1 g/dL (30.0-36.0); Mean Corpuscular Hemoglobin 32.3 pg (28.0-34.0); Mean Corpuscular Volume 94.9 fl (80-94); Mean Platelet Volume 9.9 fL (7.4-10.4); Monocytes # 0.4 10^3/uL (0.2-0.9); Monocytes % 5.6 %; Neutrophils # 4.59 10^3/uL (1.8-7.7); Neutrophils % 69.8 %; Nucleated Red Blood Cells % 0 %; Platelet Count 152 10^3/cmm (130-400); Red Blood Count 3.71 10^6/uL (4.1-5.3); Red Cell Distribution Width 13.4 % (12.1-15.1); White Blood Count 6.6 10^3/uL (4.0-10.0)
[2022-06-30 05:37] LABS: Alanine Aminotransferase 42 U/L (0-41); Albumin Level 3.4 g/dL (3.5-5.2); Alkaline Phosphatase 65 U/L (40-130); Aspartate Amino Transferase 31 U/L (0-40); Blood Urea Nitrogen 7 mg/dL (6-20); Calcium 8.2 mg/dL (8.5-10.5); Carbon Dioxide 28 mmol/L (22-29); Chloride 97 mmol/L (98-107); Globulin 2.5 g/dL (1.3-4.6); Glomerular Filtration Rate 130.7 mL/min (90-130); Glucose 104 mg/dL (65-115); Osmolality Calculated 278 mOsm/kg (285-295); Sodium 135 mmol/L (136-145); Total Bilirubin 0.8 mg/dL (0.15-1.2); Total Protein 5.9 g/dL (6.6-8.7)
[2022-06-30] MEDS: cloNIDine 0.1 mg Tablet PO (06:23)
[2022-06-30] MEDS: pantoprazole 40 mg SDV IVP (06:23)
[2022-06-30] MEDS: enoxaparin 40 mg/0.4 mL Syringe SUBCUT (09:36)
[2022-06-30] MEDS: lisinopril 20 mg Tablet PO (09:36)
[2022-06-30] MEDS: potassium chloride ER 20 mEq Tablet 40 MEQ PO (09:36)
--- NOTE | 2022-06-30 09:49 | P.DS_ITS ---
Discharge Providers Date of Admission: 06/29/22 05:05 Date of Discharge: June 30, 2022 Attending Provider at Admission: Troy Hopson MD Attending Provider at Discharge: Nicole Flowers MD Primary Care Provider: Antonio Alvarado MD Diagnoses at Discharge Discharge Diagnosis (1) Pancreatitis, acute: Status: Acute Reason for Visit Reason for Visit: ABD PAIN Hospital Course Hospital Course 32 male who was diagnosed with pancreatitis was managed conservatively, his diet was advanced he was able to tolerate, no recurrent of nausea, vomiting or worsening abdominal pain. He does take potassium supplements at home which I will resume at the time of discharge. No signs of sepsis or necrotic pancreas. CT scan showed acute pancreatitis without any drainable abscess or fluid collection. There is diffuse fatty infiltration of liver. Previous CT scan did not show gallstones or ductal dilation. Etiology seems to be alcohol induced pancreatitis. Physical Exam Narrative: Patient is eating GI soft diet Looks well-hydrated Abdomen benign Patient is awake and alert Nonfocal neuro exam Lower extremity no edema Discharge Data Studies Completed and Pending Completed Studies During Hospitalization Category Date Time Status CT abdomen pelvis w con* [id number] Routine Cat Scan 06/29/22 06:19 Completed Radiology Impressions Abdomen/Pelvis CT 06/29/22 06:19 IMPRESSION: 1. Findings compatible with acute pancreatitis as described above. 2. No drainable abscess or fluid collection. 3. No other significant changes compared to previous. 4. Hepatomegaly with diffuse fatty infiltration liver. Splenomegaly. 5. Small amount of free fluid in the pelvis. Laboratory Results WBC 6.6 10^3/uL (4.0-10.0) 06/30/22 05:11 RBC 3.71 10^6/uL (4.1-5.3) L 06/30/22 05:11 Hgb 12.0 g/dL (11.7-16.6) 06/30/22 05:11 Hct 35.2 % (42.0-52.0) L 06/30/22 05:11 MCV 94.9 fl (80-94) H 06/30/22 05:11 MCH 32.3 pg (28.0-34.0) 06/30/22 05:11 MCHC 34.1 g/dL (30.0-36.0) 06/30/22 05:11 RDW 13.4 % (12.1-15.1) 06/30/22 05:11 Plt Count 152 10^3/cmm (130-400) D 06/30/22 05:11 MPV 9.9 fL (7.4-10.4) 06/30/22 05:11 Neut % (Auto) 69.8 % 06/30/22 05:11 Lymph % (Auto) 23.3 % 06/30/22 05:11 [place] % (Auto) 5.6 % 06/30/22 05:11 Eos % (Auto) 0.6 % 06/30/22 05:11 Baso % (Auto) 0.5 % 06/30/22 05:11 Neut # (Auto) 4.59 10^3/uL (1.8-7.7) 06/30/22 05:11 Lymph # (Auto) 1.5 10^3/uL (0.8-4.8) 06/30/22 05:11 [place] # (Auto) 0.4 10^3/uL (0.2-0.9) 06/30/22 05:11 Eos # (Auto) 0.0 10^3/uL (0.0-0.8) 06/30/22 05:11 Baso # (Auto) 0.0 10^3/uL (0.0-0.1) 06/30/22 05:11 Nucleated RBC % (auto) 0 % 06/30/22 05:11 Nucleated RBCs # 0.0 /100WBC 06/30/22 05:11 Sodium 135 mmol/L (136-145) L 06/30/22 05:11 Potassium 3.0 mmol/L (3.5-5.1) L 06/30/22 05:11 Chloride 97 mmol/L (98-107) L 06/30/22 05:11 Carbon Dioxide 28 mmol/L (22-29) 06/30/22 05:11 Anion Gap 13.0 (5-19) 06/30/22 05:11 BUN 7 mg/dL (6-20) 06/30/22 05:11 Creatinine 0.7 mg/dL (0.7-1.2) 06/30/22 05:11 GFR Calculation 130.7 mL/min (90-130) H 06/30/22 05:11 Glucose 104 mg/dL (65-115) 06/30/22 05:11 Calculated Osmolality 278 mOsm/kg (285-295) L 06/30/22 05:11 Calcium 8.2 mg/dL (8.5-10.5) L 06/30/22 05:11 Total Bilirubin 0.8 mg/dL (0.15-1.2) 06/30/22 05:11 AST 31 U/L (0-40) 06/30/22 05:11 ALT 42 U/L (0-41) H 06/30/22 05:11 Alkaline Phosphatase 65 U/L (40-130) 06/30/22 05:11 Total Protein 5.9 g/dL (6.6-8.7) L 06/30/22 05:11 Albumin 3.4 g/dL (3.5-5.2) L 06/30/22 05:11 Globulin 2.5 g/dL (1.3-4.6) 06/30/22 05:11 Lipase 1354 U/L (13-60) H 06/29/22 04:00 Urine Color Dark yellow (Yellow) 06/29/22 16:22 Urine Appearance Clear (CLEAR) 06/29/22 16:22 Urine pH 7 (5-7) 06/29/22 16:22 Ur Specific [place] 1.005 (1.005-1.030) 06/29/22 16:22 Urine Protein 1+ (Negative) H 06/29/22 16:22 Urine Glucose (UA) Norm (Normal) 06/29/22 16:22 Urine Ketones 1+ (Negative) H 06/29/22 16:22 Urine Blood 2+ (Negative) H 06/29/22 16:22 Urine Nitrate Negative (Negative) 06/29/22 16:22 Urine Bilirubin 1+ (Negative) H 06/29/22 16:22 Urine Urobilinogen 1 mg/dL (Negative) H 06/29/22 16:22 Ur Leukocyte Esterase Trace (Negative) H 06/29/22 16:22 Urine RBC 0-4 /hpf (0-2) H 06/29/22 16:22 Urine WBC 0-4 /hpf (0-5) H 06/29/22 16:22 Ur Squamous Epith Cells 0-4 /hpf (0-5) H 06/29/22 16:22 Amorphous Sediment Not Reportable 06/29/22 16:22 Urine Bacteria Trace /hpf (NONE) 06/29/22 16:22 Urine Mucus 1+ /hpf 06/29/22 16:22 Ethyl Alcohol < 10 mg/dL (0-10) 06/29/22 04:00 Vitals Last Vital Signs Temp 98.1 F 06/30/22 08:00 Pulse 80 06/30/22 08:00 Resp 17 06/30/22 08:00 BP 112/72 06/30/22 08:00 Pulse Ox 92 06/30/22 08:00 O2 Del Method 06/30/22 08:00 Discharge Plan Discharge Patient Disposition: Home Condition: Stable Prescriptions: New oxycodone 5 mg tablet 5 mg PO DAILY Qty: 10 0RF ondansetron HCl 4 mg tablet 4 mg PO DAILY Qty: 14 0RF Continued digestive enzymes Tablet 1 tab PO DAILY resveratrol 250 mg capsule 250 - 500 mg PO DAILY PRN (Reason: Inflammation) atorvastatin 40 mg tablet 40 mg PO DAILY Qty: 30 5RF ondansetron HCl 8 mg tablet 8 mg PO Q8H PRN (Reason: nausea and vomiting) 30 Days Qty: 60 0RF metoclopramide HCl [Reglan] 10 mg tablet 10 mg PO Q6H PRN (Reason: nausea and vomiting) Qty: 90 1RF lisinopril 40 mg Tablet 40 mg PO QAM sucralfate [Carafate] 100 mg/mL suspension 1 g PO TID PRN (Reason: ulcers) metoprolol tartrate 100 mg tablet 100 mg PO QAM trazodone 50 mg tablet 25 mg PO BEDTIME potassium chloride 20 mEq tablet extended release 20 meq PO DAILY Qty: 14 0RF clonidine HCl 0.1 mg tablet 0.1 mg PO DAILY vitamin B complex Tablet 1 tab PO DAILY Adult Multivitamin Gummies 200 mcg Tablet,Chewable 2 tab PO DAILY Probiotic 3 billion cell Capsule 3,000 mmu cells PO DAILY Rx Instructions: administer with a meal magnesium oxide 400 mg magnesium Tablet 400 mg PO DAILY omeprazole 40 mg capsule,delayed release(DR/EC) 40 mg PO BID Qty: 30 0RF Vitamin C 500 mg Tablet 500 - 1,000 mg PO DAILY Vitamin D3 125 mcg (5,000 unit) Tablet 125 mcg PO DAILY Discontinued potassium gluconate 595 mg (99 mg) Tablet 595 mg PO DAILY PRN (Reason: Muscle Pain) Discharge Orders: Discharge Order (Routine); Ordered 06/30/22 Ordered By: Nicole Flowers Referrals: Antonio Alvarado MD [Primary Care Provider] - 2 weeks Discharge Diet: Low Fat Discharge Activity: Resume usual activity and Increase activity as tolerated Patient Instructions: Opioid Safety Discharge Attestations Time Spent in Discharge Care*: less than 30 min Quality Metrics Clinical Quality Measures [ No reported AMI, CVA or VTE this stay] Coding Level of Care Code Acute [facility] note Diagnoses Pancreatitis, acute K85.90
== END 2022-06-30 12:19 | disposition home or self-care (01) | DRG 440 ==
LOC: ER 05:05 → MEDSURG 05:35
PROVIDERS: Admitting Provider Family Medicine; Emergency Provider Student in an Organized Health Care Education/Training Program; PCP Family Medicine Adult Medicine; Visit Provider Internal Medicine
DX: K85.20 Alcohol induced acute pancreatitis without necrosis or infection (principal); F10.10 Alcohol abuse, uncomplicated; K86.0 Alcohol-induced chronic pancreatitis; I10 Essential (primary) hypertension; F32.A Depression, unspecified; F41.0 Panic disorder [episodic paroxysmal anxiety]; K21.9 Gastro-esophageal reflux disease without esophagitis; F41.1 Generalized anxiety disorder; E78.5 Hyperlipidemia, unspecified; G47.00 Insomnia, unspecified; K70.0 Alcoholic fatty liver; Z79.891 Long term (current) use of opiate analgesic
CPT/HCPCS: 74177; 80053; 80307; 81001; 83690; 85025; 93005; 96361; 96372; 96374; 96375; 99285; C9113; J1170; J1650; J2270; J2405; J2543; J2550; J2765; J3490; J7030; Q9967

== ENCOUNTER 2022-09-16 03:47 | Inpatient (IN) | payer MEDICAID, SELFPAY ==
[2022-09-16] VITALS (60 sets, daily range): BP systolic 120–159; BP diastolic 79–108; PULSE 59–148; RESP 11–44; TEMP 36.8–37.1; O2SAT 90–99; BMI 29.5
--- NOTE | 2022-09-16 03:51 | XRR_ITS ---
PROCEDURE INFORMATION: Exam: XR Chest Exam date and time: 09/16/2022 3:54 AM Age: 32 years old Clinical indication: Chest pressure; Patient HX: C/O chest pain with tachypnea. Tachycardic on monitor. ; Additional info: Cp TECHNIQUE: Imaging protocol: Radiologic exam of the chest. Views: 1 view. COMPARISON: CR XR chest 1V portable [id number] 05/05/2022 1:18 PM FINDINGS: Tubes, catheters and devices: Right PICC has been removed. Lungs: Unremarkable. No consolidation. Pleural spaces: Unremarkable. No pleural effusion. No pneumothorax. Heart/Mediastinum: Unremarkable. No cardiomegaly. Bones/joints: Unremarkable. XR/XR chest 1V portable [id number] IMPRESSION: No acute findings.
--- NOTE | 2022-09-16 03:53 | ED_ITS ---
Documented by User: Yamil Sharif MD 09/16/22 03:59 HPI - Abdominal Pain General: Chief Complaint: Abdominal Pain Stated Complaint: ANXIETY Time Seen by Provider: 09/16/22 03:51 Source: patient and EMS Mode of arrival: EMS Limitations: no limitations History of Present Illness: 32-year-old male with a history anxiety along with pancreatitis that has been alcohol induced in the past states that over the last 2 days has been having severe abdominal pain with large amount of vomiting he states he has had some chest pain he is also tachycardic here in the 140s he states he is unable to tolerate any p.o. denies any radiation of pain denies any fevers. Associated Symptoms: Reports nausea and vomiting; Denies chills, dysuria and fever(s) Review of Systems Const: Denies: fever(s), chills, body aches or change in appetite Eyes: Denies: blurry vision or eye discomfort ENMT: Denies: throat pain or dental pain Card: Reports: chest pain and palpitations Resp: Denies: dyspnea GI: Reports: abdominal pain, nausea and vomiting : Denies: dysuria Musc: Denies: neck pain or back pain Skin/Breast: Denies: rash Neuro: Denies: headache(s) Psych: Denies: depression Kris/Lymph: Denies: easy bruising All/Imm: Denies: urticaria PFSH ED PFSH: Medical History Acute posttraumatic stress disorder Alcohol abuse Anxiety and depression Generalized anxiety disorder with panic attacks GERD (gastroesophageal reflux disease) Hyperlipidemia Hypertension Insomnia Pancreatitis, acute Psychiatric care Surgical History No pertinent past surgical history Family History Father Hypertension Social History Smoking and tobacco status: never smoked Alcohol intake: current Alcohol intake frequency: 0-2 Drinks per Day Marital status: Number of children: 5 Current occupational status: employed Current gender identity: Male Physical Exam Const: COMMON NORMALS: no acute distress, patient oriented x3 and healthy appearing HENMT: COMMON NORMALS: normocephalic and atraumatic HEAD & SCALP: normocephalic and atraumatic Eye: COMMON NORMALS: Equal, round and reactive pupils present and EOMs intact bilaterally PUPIL: Yes Equal, round and reactive pupils present Neck/C-Spine: COMMON NORMALS: full ROM and supple Chest: COMMONS NORMALS: normal inspection of the chest and normal palpation of entire chest wall Resp: COMMON NORMALS: normal respiratory effort, No retractions, No use of accessory muscles and clear to auscultation bilaterally AUSCULTATION: clear to auscultation bilaterally Cardio: COMMON NORMALS: regular rhythm and No murmurs present (Cardio) RATE: tachycardic RHYTHM: regular rhythm GI: COMMON NORMALS: Normal to inspection, nondistended, normoactive bowel sounds present, Soft to palpation, non-tender and no masses PALPATION: Yes Soft to palpation Extremity: COMMON NORMALS: normal to inspection and full ROM Neuro: COMMON NORMALS: patient oriented x3, moves all extremities and no focal motor deficits Psych: COMMON NORMALS: mental status grossly normal, Normal thought process present and cooperative THOUGHT PROCESS: Normal thought process present Skin: COMMON NORMALS: no rashes or lesions noted and no wounds GENERAL SKIN EXAM: no rashes or lesions noted Course Vital Signs: Vital signs: Vital Signs Temperature 98.3 F 09/16/22 03:51 Pulse Rate 126 H 09/16/22 06:30 Respiratory Rate 17 09/16/22 06:30 Blood Pressure 139/85 09/16/22 06:30 Pulse Oximetry 95 09/16/22 06:30 Oxygen Delivery Me thod 09/16/22 03:51 MDM - Abdominal Pain Lab Data 09/16/22 04:00 09/16/22 05:43 Labs/Radiology: Radiology Impressions Chest X-Ray 09/16/22 03:51 IMPRESSION: No acute findings. Abdomen/Pelvis CT 09/16/22 05:11 IMPRESSION: 1. No suspicious finding visualized. Findings of pancreatitis have virtually resolved from 06/29/2022. No fluid collection has developed. 2. Markedly fatty liver. A 2 cm right hepatic mass is unchanged from 06/29/2022, probably hemangioma. Laboratory Results WBC 5.2 10^3/uL (4.0-10.0) 09/16/22 04:00 RBC 4.59 10^6/uL (4.1-5.3) 09/16/22 04:00 Hgb 15.3 g/dL (11.7-16.6) 09/16/22 04:00 Hct 43.7 % (42.0-52.0) 09/16/22 04:00 MCV 95.2 fl (80-94) H 09/16/22 04:00 MCH 33.3 pg (28.0-34.0) 09/16/22 04:00 MCHC 35.0 g/dL (30.0-36.0) 09/16/22 04:00 RDW 13.6 % (12.1-15.1) 09/16/22 04:00 Plt Count 159 10^3/cmm (130-400) 09/16/22 04:00 MPV 9.7 fL (7.4-10.4) 09/16/22 04:00 Neut % (Auto) 81.6 % 09/16/22 04:00 Lymph % (Auto) 12.2 % 09/16/22 04:00 [place] % (Auto) 5.4 % 09/16/22 04:00 Eos % (Auto) 0.0 % 09/16/22 04:00 Baso % (Auto) 0.6 % 09/16/22 04:00 Neut # (Auto) 4.21 10^3/uL (1.8-7.7) 09/16/22 04:00 Lymph # (Auto) 0.6 10^3/uL (0.8-4.8) L 09/16/22 04:00 [place] # (Auto) 0.3 10^3/uL (0.2-0.9) 09/16/22 04:00 Eos # (Auto) 0.0 10^3/uL (0.0-0.8) 09/16/22 04:00 Baso # (Auto) 0.0 10^3/uL (0.0-0.1) 09/16/22 04:00 Nucleated RBC % (auto) 0 % 09/16/22 04:00 Nucleated RBCs # 0.0 /100WBC 09/16/22 04:00 PT 13.30 SECONDS (12.1-14.9) 09/16/22 04:00 INR 0.98 (0.8-1.2) 09/16/22 04:00 Specimen Type Arterial 09/16/22 05:11 Sample Site Radial, right 09/16/22 05:11 ABG pH 7.52 (7.35-7.45) H 09/16/22 05:11 ABG pCO2 29.0 mmHg (35-45) L 09/16/22 05:11 ABG pO2 114.0 mmHg (80.0-100.0) H 09/16/22 05:11 ABG HCO3 23.6 mmol/L (22-26) 09/16/22 05:11 ABG Base Excess 1.7 mmol/L (-2.0-2.0) 09/16/22 05:11 Ricardo Test Pos 09/16/22 05:11 Hematocrit 45.1 % (42-52) 09/16/22 05:11 O2 Delivery Device None 09/16/22 05:11 Flight Director ID [email or web address] 09/16/22 05:11 Sodium 138 mmol/L (136-145) 09/16/22 05:43 Potassium 4.2 mmol/L (3.5-5.1) 09/16/22 05:43 Chloride 97 mmol/L (98-107) L 09/16/22 05:43 Carbon Dioxide 23 mmol/L (22-29) 09/16/22 05:43 Anion Gap 22.2 (5-19) H 09/16/22 05:43 BUN 10 mg/dL (6-20) 09/16/22 05:43 Creatinine 0.6 mg/dL (0.7-1.2) L 09/16/22 05:43 GFR Calculation 156.1 mL/min (90-130) H 09/16/22 05:43 Glucose 97 mg/dL (65-115) 09/16/22 05:43 Calculated Osmolality 285 mOsm/kg (285-295) 09/16/22 05:43 Lactate 3.2 mmol/L (0.5-2.2) H 09/16/22 05:43 Calcium 8.4 mg/dL (8.5-10.5) L 09/16/22 05:43 Total Bilirubin 0.9 mg/dL (0.15-1.2) 09/16/22 04:00 AST 137 U/L (0-40) H 09/16/22 04:00 ALT 112 U/L (0-41) H 09/16/22 04:00 Alkaline Phosphatase 113 U/L (40-130) 09/16/22 04:00 Troponin T Baseline 6 ng/L (0-15) 09/16/22 04:00 Troponin T 120 Minute 6.00 ng/L (0-15) 09/16/22 05:43 Delta Troponin T 0 ABS# (0-10) 09/16/22 05:43 Total Protein 7.7 g/dL (6.6-8.7) 09/16/22 04:00 Albumin 4.8 g/dL (3.5-5.2) 09/16/22 04:00 Globulin 2.9 g/dL (1.3-4.6) 09/16/22 04:00 Lipase 83 U/L (13-60) H 09/16/22 04:00 Ethyl Alcohol 27 mg/dL (0-10) H 09/16/22 04:00 Serum Ketones Negative (Negative) 09/16/22 04:00 Discharge Plan Discharge Condition: Stable Prescriptions: No Action digestive enzymes Tablet 1 tab PO .UP TO TWICE A DAY resveratrol 250 mg capsule 250 - 500 mg PO DAILY PRN (Reason: Inflammation) atorvastatin 40 mg tablet 40 mg PO DAILY Qty: 30 5RF metoclopramide HCl [Reglan] 10 mg tablet 10 mg PO Q6H PRN (Reason: nausea and vomiting) Qty: 90 1RF trazodone 50 mg tablet 25 mg PO BEDTIME Qty: 45 1RF lisinopril 40 mg Tablet 40 mg PO QAM sucralfate [Carafate] 100 mg/mL suspension 1 g PO TID PRN (Reason: ulcers) metoprolol tartrate 100 mg tablet 100 mg PO QAM vitamin B complex Tablet 1 tab PO DAILY Adult Multivitamin Gummies 200 mcg Tablet,Chewable 2 tab PO DAILY Probiotic 3 billion cell Capsule 3,000 mmu cells PO DAILY Rx Instructions: administer with a meal magnesium oxide 400 mg magnesium Tablet 400 mg PO DAILY zinc acetate 50 mg (zinc) Capsule 50 mg PO DAILY potassium gluconate 595 mg (99 mg) Tablet 595 mg PO DAILY clonidine HCl 0.1 mg tablet 0.1 mg PO BID omeprazole 40 mg capsule,delayed release(DR/EC) 40 mg PO QAM ascorbic acid (vitamin C) [Vitamin C] 500 mg Tablet 500 - 1,000 mg PO DAILY cholecalciferol (vitamin D3) [Vitamin D3] 125 mcg (5,000 unit) Tablet 125 mcg PO DAILY Referrals: Antonio Alvarado MD [Primary Care Provider] - Sign Out Sign Out Data: Patient Sign Out occurred on 09/16/22 at 06:45. Patient's care was discussed, and care was transferred from to Igor Diaz DO. Coding Level of Care Code ED Decommissioning Well Site Manager for Chg Fwd Exam Comprehensive Documented by User: Igor Diaz DO 09/16/22 08:15 HPI - Abdominal Pain General: Chief Complaint: Abdominal Pain Stated Complaint: ANXIETY Time Seen by Provider: 09/16/22 03:51 PFSH ED PFSH: Medical History Acute posttraumatic stress disorder Alcohol abuse Anxiety and depression Generalized anxiety disorder with panic attacks GERD (gastroesophageal reflux disease) Hyperlipidemia Hypertension Insomnia Pancreatitis, acute Psychiatric care Surgical History No pertinent past surgical history Family History Father Hypertension Social History Smoking and tobacco status: never smoked Alcohol intake: current Alcohol intake frequency: 0-2 Drinks per Day Marital status: Number of children: 5 Current occupational status: employed Current gender identity: Male Course Vital Signs: Vital signs: Vital Signs Temperature 98.3 F 09/16/22 03:51 Pulse Rate 126 H 09/16/22 06:30 Respiratory Rate 17 09/16/22 06:30 Blood Pressure 139/85 09/16/22 06:30 Pulse Oximetry 95 09/16/22 06:30 Oxygen Delivery Me thod 09/16/22 03:51 MDM - Abdominal Pain Medical Decision Making Care assumed from Dr. Sharif at change of shift. Lactic acid and anion gap are trending down significantly however patient is very tachycardic and has tremor. He is beginning to develop delirium tremors from alcohol withdrawal and he will need to be admitted to the ICU for medical management. Of written for initial clonidine and Ativan started [place] protocol discussed with Dr. Osuna from the hospitalist service orders written for admission Lab Data 09/16/22 04:00 09/16/22 05:43 Labs/Radiology: Radiology Impressions Chest X-Ray 09/16/22 03:51 IMPRESSION: No acute findings. Abdomen/Pelvis CT 09/16/22 05:11 IMPRESSION: 1. No suspicious finding visualized. Findings of pancreatitis have virtually resolved from 06/29/2022. No fluid collection has developed. 2. Markedly fatty liver. A 2 cm right hepatic mass is unchanged from 06/29/2022, probably hemangioma. Laboratory Results WBC 5.2 10^3/uL (4.0-10.0) 09/16/22 04:00 RBC 4.59 10^6/uL (4.1-5.3) 09/16/22 04:00 Hgb 15.3 g/dL (11.7-16.6) 09/16/22 04:00 Hct 43.7 % (42.0-52.0) 09/16/22 04:00 MCV 95.2 fl (80-94) H 09/16/22 04:00 MCH 33.3 pg (28.0-34.0) 09/16/22 04:00 MCHC 35.0 g/dL (30.0-36.0) 09/16/22 04:00 RDW 13.6 % (12.1-15.1) 09/16/22 04:00 Plt Count 159 10^3/cmm (130-400) 09/16/22 04:00 MPV 9.7 fL (7.4-10.4) 09/16/22 04:00 Neut % (Auto) 81.6 % 09/16/22 04:00 Lymph % (Auto) 12.2 % 09/16/22 04:00 [place] % (Auto) 5.4 % 09/16/22 04:00 Eos % (Auto) 0.0 % 09/16/22 04:00 Baso % (Auto) 0.6 % 09/16/22 04:00 Neut # (Auto) 4.21 10^3/uL (1.8-7.7) 09/16/22 04:00 Lymph # (Auto) 0.6 10^3/uL (0.8-4.8) L 09/16/22 04:00 [place] # (Auto) 0.3 10^3/uL (0.2-0.9) 09/16/22 04:00 Eos # (Auto) 0.0 10^3/uL (0.0-0.8) 09/16/22 04:00 Baso # (Auto) 0.0 10^3/uL (0.0-0.1) 09/16/22 04:00 Nucleated RBC % (auto) 0 % 09/16/22 04:00 Nucleated RBCs # 0.0 /100WBC 09/16/22 04:00 PT 13.30 SECONDS (12.1-14.9) 09/16/22 04:00 INR 0.98 (0.8-1.2) 09/16/22 04:00 Specimen Type Arterial 09/16/22 05:11 Sample Site Radial, right 09/16/22 05:11 ABG pH 7.52 (7.35-7.45) H 09/16/22 05:11 ABG pCO2 29.0 mmHg (35-45) L 09/16/22 05:11 ABG pO2 114.0 mmHg (80.0-100.0) H 09/16/22 05:11 ABG HCO3 23.6 mmol/L (22-26) 09/16/22 05:11 ABG Base Excess 1.7 mmol/L (-2.0-2.0) 09/16/22 05:11 Ricardo Test Pos 09/16/22 05:11 Hematocrit 45.1 % (42-52) 09/16/22 05:11 O2 Delivery Device None 09/16/22 05:11 Flight Director ID [email or web address] 09/16/22 05:11 Sodium 138 mmol/L (136-145) 09/16/22 05:43 Potassium 4.2 mmol/L (3.5-5.1) 09/16/22 05:43 Chloride 97 mmol/L (98-107) L 09/16/22 05:43 Carbon Dioxide 23 mmol/L (22-29) 09/16/22 05:43 Anion Gap 22.2 (5-19) H 09/16/22 05:43 BUN 10 mg/dL (6-20) 09/16/22 05:43 Creatinine 0.6 mg/dL (0.7-1.2) L 09/16/22 05:43 GFR Calculation 156.1 mL/min (90-130) H 09/16/22 05:43 Glucose 97 mg/dL (65-115) 09/16/22 05:43 Calculated Osmolality 285 mOsm/kg (285-295) 09/16/22 05:43 Lactate 3.2 mmol/L (0.5-2.2) H 09/16/22 05:43 Calcium 8.4 mg/dL (8.5-10.5) L 09/16/22 05:43 Total Bilirubin 0.9 mg/dL (0.15-1.2) 09/16/22 04:00 AST 137 U/L (0-40) H 09/16/22 04:00 ALT 112 U/L (0-41) H 09/16/22 04:00 Alkaline Phosphatase 113 U/L (40-130) 09/16/22 04:00 Troponin T Baseline 6 ng/L (0-15) 09/16/22 04:00 Troponin T 120 Minute 6.00 ng/L (0-15) 09/16/22 05:43 Delta Troponin T 0 ABS# (0-10) 09/16/22 05:43 Total Protein 7.7 g/dL (6.6-8.7) 09/16/22 04:00 Albumin 4.8 g/dL (3.5-5.2) 09/16/22 04:00 Globulin 2.9 g/dL (1.3-4.6) 09/16/22 04:00 Lipase 83 U/L (13-60) H 09/16/22 04:00 Ethyl Alcohol 27 mg/dL (0-10) H 09/16/22 04:00 Serum Ketones Negative (Negative) 09/16/22 04:00 Discharge Plan Discharge Condition: Stable Prescriptions: No Action digestive enzymes Tablet 1 tab PO .UP TO TWICE A DAY resveratrol 250 mg capsule 250 - 500 mg PO DAILY PRN (Reason: Inflammation) atorvastatin 40 mg tablet 40 mg PO DAILY Qty: 30 5RF metoclopramide HCl [Reglan] 10 mg tablet 10 mg PO Q6H PRN (Reason: nausea and vomiting) Qty: 90 1RF trazodone 50 mg tablet 25 mg PO BEDTIME Qty: 45 1RF lisinopril 40 mg Tablet 40 mg PO QAM sucralfate [Carafate] 100 mg/mL suspension 1 g PO TID PRN (Reason: ulcers) metoprolol tartrate 100 mg tablet 100 mg PO QAM vitamin B complex Tablet 1 tab PO DAILY Adult Multivitamin Gummies 200 mcg Tablet,Chewable 2 tab PO DAILY Probiotic 3 billion cell Capsule 3,000 mmu cells PO DAILY Rx Instructions: administer with a meal magnesium oxide 400 mg magnesium Tablet 400 mg PO DAILY zinc acetate 50 mg (zinc) Capsule 50 mg PO DAILY potassium gluconate 595 mg (99 mg) Tablet 595 mg PO DAILY clonidine HCl 0.1 mg tablet 0.1 mg PO BID omeprazole 40 mg capsule,delayed release(DR/EC) 40 mg PO QAM ascorbic acid (vitamin C) [Vitamin C] 500 mg Tablet 500 - 1,000 mg PO DAILY cholecalciferol (vitamin D3) [Vitamin D3] 125 mcg (5,000 unit) Tablet 125 mcg PO DAILY Referrals: Antonio Alvarado MD [Primary Care Provider] - Sign Out Sign Out Data: Patient Sign Out occurred on 09/16/22 at 06:45. Patient's care was discussed, and care was transferred from to Igor Diaz DO. Coding Level of Care Code ED Decommissioning Well Site Manager for g Fwd Exam Comprehensive
--- NOTE | 2022-09-16 03:59 | ECG_ITS ---
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 Measurements Intervals [place] Rate: 141 P: 80 [place]: 150 QRS: 75 QRSD: 74 T: 61 QT: 280 QTc: 430 Interpretive Statements SINUS TACHYCARDIA Compared to ECG 06/29/2022 10:06:56 T-wave abnormality no longer present Electronically Signed On 09-16-2022 13:08:49 PERFORMING ARTIST by Gisella Gaytan M.D. [id number]
[2022-09-16 04:07] LABS: Basophils % 0.6 %; Hematocrit 43.7 % (42.0-52.0); Hemoglobin 15.3 g/dL (11.7-16.6); Lymphocytes # 0.6 10^3/uL (0.8-4.8); Lymphocytes % 12.2 %; Mean Corpuscular Hemoglobin 33.3 pg (28.0-34.0); Mean Corpuscular Volume 95.2 fl (80-94); Mean Platelet Volume 9.7 fL (7.4-10.4); Monocytes # 0.3 10^3/uL (0.2-0.9); Monocytes % 5.4 %; Neutrophils # 4.21 10^3/uL (1.8-7.7); Neutrophils % 81.6 %; Nucleated Red Blood Cells % 0 %; Platelet Count 159 10^3/cmm (130-400); Red Blood Count 4.59 10^6/uL (4.1-5.3); Red Cell Distribution Width 13.6 % (12.1-15.1); White Blood Count 5.2 10^3/uL (4.0-10.0)
[2022-09-16] MEDS: midazolam 1 mg/mL INJ 2 mL 2 MG IVP (04:10)
[2022-09-16] MEDS: sodium chloride 0.9% 1,000 ML 999 ML IV ×2 (04:10→05:06)
[2022-09-16] MEDS: HYDROmorphone 1 mg/mL INJ 1 mL 0.5 MG IVP (04:10)
[2022-09-16 04:27] LABS: Troponin(5th) Baseline 6 ng/L (0-15)
[2022-09-16 04:28] LABS: INR 0.98 (0.8-1.2)
[2022-09-16 04:31] LABS: Alanine Aminotransferase 112 U/L (0-41); Albumin Level 4.8 g/dL (3.5-5.2); Alcohol Level 27 mg/dL (0-10); Alkaline Phosphatase 113 U/L (40-130); Blood Urea Nitrogen 10 mg/dL (6-20); Calcium 9.6 mg/dL (8.5-10.5); Carbon Dioxide 15 mmol/L (22-29); Chloride 94 mmol/L (98-107); Globulin 2.9 g/dL (1.3-4.6); Glomerular Filtration Rate 156.1 mL/min (90-130); Glucose 117 mg/dL (65-115); Lipase 83 U/L (13-60); Osmolality Calculated 292 mOsm/kg (285-295); Sodium 141 mmol/L (136-145); Total Bilirubin 0.9 mg/dL (0.15-1.2); Total Protein 7.7 g/dL (6.6-8.7)
[2022-09-16 04:44] LABS: Anion Gap 36.6 (5-19); Aspartate Amino Transferase 137 U/L (0-40); Potassium 4.6 mmol/L (3.5-5.1)
[2022-09-16 04:57] LABS: Ketone (Acetest) Serum Negative (Negative)
--- NOTE | 2022-09-16 05:11 | CTR_ITS ---
PROCEDURE INFORMATION: Exam: CT Abdomen And Pelvis With Contrast Exam date and time: 09/16/2022 5:44 AM Age: 32 years old Clinical indication: Abdominal pain; Generalized; Patient HX: C/O abd pain with elevated lipase. History of pancreatitis. TECHNIQUE: Imaging protocol: Computed tomography of the abdomen and pelvis with contrast. Radiation optimization: All CT scans at this facility use at least one of these dose optimization techniques: automated exposure control; mA and/or kV adjustment per patient size (includes targeted exams where dose is matched to clinical indication); or iterative reconstruction. Contrast material: OMNI 350; Contrast volume: 100 ml; Contrast route: INTRAVENOUS (IV); COMPARISON: CT abdomen pelvis w con* [id number] 06/29/2022 8:15 AM RADIATION DOSE METRICS: Total DLP (mGy-cm): 860.03 FINDINGS: Lungs: The visualized lung bases are clear. Diaphragm: Minute hiatal hernia. Liver: Markedly hypodense liver. A right hepatic mass is present, and it measures up to 1.9 cm. It previously measured about the same. Gallbladder and bile ducts: No calcified gallstones or biliary dilation identified. Pancreas: Virtually resolved peripancreatic fat stranding from prior. Spleen: The spleen is not enlarged. No suspicious enhancing mass is noted. Adrenal glands: Normal. No mass. Kidneys and ureters: No solid renal mass or hydronephrosis. Stomach and bowel: No small bowel obstruction or free air. No overt mucosal thickening. Appendix: No evidence of appendicitis. Intraperitoneal space: Unremarkable. No free air. No suspicious fluid collection. Vasculature: No AAA or acute vascular lesion identified. Lymph nodes: No enlarged lymph nodes. Urinary bladder: Unremarkable as visualized. Reproductive: Unremarkable as visualized. Bones/joints: No acute fracture. Soft tissues: No acute or suspicious finding noted. CT/CT abdomen pelvis w con* [id number] IMPRESSION: 1. No suspicious finding visualized. Findings of pancreatitis have virtually resolved from 06/29/2022. No fluid collection has developed. 2. Markedly fatty liver. A 2 cm right hepatic mass is unchanged from 06/29/2022, probably hemangioma.
[2022-09-16 05:23] LABS: ABG PH Result 7.52 (7.35-7.45); Arterial Blood Gas Hematocrit 45.1 % (42-52); Base Excess ABG 1.7 mmol/L (-2.0-2.0); Blood Gas Allen Test Pos; Blood Gas Sample Site Radial, right; Blood Gas Sample Type Arterial; HCO3 ABG 23.6 mmol/L (22-26)
[2022-09-16] MEDS: haloperidol inj 5 mg/mL INJ 1 mL IVP (05:24)
[2022-09-16] MEDS: sodium chloride 0.9% 500 ML 999 ML IV (05:24)
[2022-09-16] MEDS: iohexol 350 mg/mL 500 mL Btl (per mL) IV (05:50)
[2022-09-16 06:03] LABS: Anion Gap 22.2 (5-19); Blood Urea Nitrogen 10 mg/dL (6-20); Calcium 8.4 mg/dL (8.5-10.5); Carbon Dioxide 23 mmol/L (22-29); Chloride 97 mmol/L (98-107); Glomerular Filtration Rate 156.1 mL/min (90-130); Glucose 97 mg/dL (65-115); Lactate (Lactic Acid level) 3.2 mmol/L (0.5-2.2); Osmolality Calculated 285 mOsm/kg (285-295); Potassium 4.2 mmol/L (3.5-5.1); Sodium 138 mmol/L (136-145)
[2022-09-16 06:19] LABS: Troponin 5 2HR Delta 0 ABS# (0-10)
[2022-09-16] MEDS: sodium chloride 0.9% 1,000 ML 150 ML IV (06:51)
[2022-09-16] MEDS: folic acid 1 mg Tablet PO (08:09)
[2022-09-16] MEDS: LORazepam 2 mg Tablet PO ×2 (08:09→22:36)
[2022-09-16] MEDS: cloNIDine 0.1 mg Tablet PO ×2 (08:10→18:10)
[2022-09-16] MEDS: thiamine 100 mg Tablet PO (08:10)
[2022-09-16] MEDS: multivitamin therapeutic Tablet 1 TAB PO (08:11)
[2022-09-16] MEDS: pantoprazole 40 mg SDV IVP ×2 (08:27→20:21)
--- NOTE | 2022-09-16 09:15 | PC.NURSE ---
Pt arrives to ICU from Ed. Pt alert and oriented. Reddened sclera noted. Slight tremors noted.
--- NOTE | 2022-09-16 09:28 | PM.HP ---
Providers/Chief Complaint Admitting Physician: Tal Alan MD Primary Care Provider: Antonio Alvarado MD Chief Complaint: ANXIETY History of Present Illness Buddy Cowan is a 32 year old male presenting to the emergency department with complaints of elevated blood pressure, nausea, weakness, tachycardia. He reports he tried to drink some wine yesterday, to reduce his blood pressure and heart rate but it did not work. He admits to drinking quite a bit of alcohol. He states he has been fairly depressed lately, with some legal issues regarding his daughter. He denies any suicidal or homicidal ideation but would like to see a psychiatrist if possible. He reports he has felt generally ill for the last 2 to 3 months, with weight loss. He thinks he may have a tarry stool on occasion. He often has epigastric pain, and comments that he has had chronic pancreatitis in the past. Review of Systems General: Reports: 10 or more systems reviewed and unremarkable except in HPI and below Const: Reports: fatigue and malaise; Denies: fever(s) or chills Eyes: Denies: change in vision ENMT: Denies: throat pain Card: Reports: palpitations Resp: Denies: dyspnea GI: Reports: abdominal pain, nausea, vomiting and melena : Denies: flank pain Musc: Reports: back pain and extremity pain Skin/Breast: Denies: rash Neuro: Denies: headache(s) Psych: Reports: anxiety and depression Endo: Denies: polyuria Kris/Lymph: Denies: easy bruising All/Imm: Denies: urticaria Medications/Allergies Home Medications Medication Instructions Recorded Confirmed Last Taken Type lisinopril 40 mg tablet 40 mg PO QAM 01/30/21 09/16/22 01/30/21 History sucralfate 100 mg/mL oral 1 g PO TID PRN ulcers 01/08/22 09/16/22 Unknown History suspension (Carafate) digestive enzymes 1 tab PO .UP TO TWICE A DAY 01/18/22 09/16/22 Unknown History resveratrol 250 mg capsule 250 - 500 mg PO DAILY PRN 01/18/22 09/16/22 Unknown History Inflammation atorvastatin 40 mg tablet 40 mg PO DAILY High cholesterol 02/22/22 09/16/22 2 Weeks Ago Rx and fats #30 tabs ~09/02/22 last filled 07/16/22 metoprolol tartrate 100 mg tablet 100 mg PO QAM 05/04/22 09/16/22 Unknown History metoclopramide HCl 10 mg tablet 10 mg PO Q6H PRN nausea and 05/20/22 09/16/22 Unknown Rx (Reglan) vomiting #90 tabs lactobacillus combination no.4 3 3,000 mmu cells PO DAILY 06/13/22 09/16/22 Unknown History billion cell capsule (Probiotic) magnesium oxide 400 mg PO DAILY 06/13/22 09/16/22 Unknown History multivitamin with minerals-folic 2 tab PO DAILY 06/13/22 09/16/22 Unknown History acid 200 mcg chewable tablet (Adult Multivitamin Gummies) vitamin B complex 1 tab PO DAILY 06/13/22 09/16/22 Unknown History ascorbic acid (vitamin C) 500 mg 500 - 1,000 mg PO DAILY 06/29/22 09/16/22 Unknown History tablet (Vitamin C) cholecalciferol (vitamin D3) 125 125 mcg PO DAILY 06/29/22 09/16/22 Unknown History mcg (5,000 unit) tablet (Vitamin D3) trazodone 50 mg tablet 25 mg PO BEDTIME #45 tabs 08/21/22 09/16/22 Unknown Rx clonidine HCl 0.1 mg tablet 0.1 mg PO BID 09/16/22 09/16/22 Unknown History omeprazole 40 mg capsule,delayed 40 mg PO QAM 09/16/22 09/16/22 Unknown History release potassium gluconate 595 mg (99 mg) 595 mg PO DAILY 09/16/22 09/16/22 Unknown History tablet zinc acetate 50 mg (zinc) capsule 50 mg PO DAILY 09/16/22 09/16/22 Unknown History Allergies Allergy/AdvReac Type Severity Reaction Status Date / Time aspirin Allergy Unknown Unknown Verified 09/16/22 08:02 NSAIDS (Non-Steroidal Allergy Unknown Unknown Verified 09/16/22 08:02 Anti-Inflamma acetaminophen [From Tylenol] Allergy ADR-Gastrointestinal Verified 09/16/22 08:02 Upset zolpidem [From Ambien] Allergy ADR-Nightma Verified 09/16/22 08:02 re buspirone AdvReac Intermediate ADR-Anxiety Verified 09/16/22 08:02 PFSH Acute PFSH: Medical History (Updated 09/16/22 @ 09:35 by Tal Alan MD) Acute posttraumatic stress disorder Alcohol abuse Anxiety and depression Generalized anxiety disorder with panic attacks GERD (gastroesophageal reflux disease) Hyperlipidemia Hypertension Insomnia Pancreatitis, acute Psychiatric care Surgical History No pertinent past surgical history Family History Father Hypertension Social History Smoking and tobacco status: never smoked Alcohol intake: current Alcohol intake frequency: 0-2 Drinks per Day Marital status: Number of children: 5 Current occupational status: employed Current gender identity: Male Vitals/I&O/Wt Last Vital Signs Temp 98.3 F 09/16/22 03:51 Pulse 133 H 09/16/22 08:19 Resp 16 09/16/22 08:19 BP 159/107 09/16/22 08:19 Pulse Ox 94 09/16/22 08:19 O2 Del Method 09/16/22 08:19 09/15/22 09/16/22 09/16/22 22:59 06:59 14:59 Intake Total 2500 / 2500 Balance 2500 / 2500 Weight last 48 hrs Weight 90.718 kg Physical Exam Narrative: General exam demonstrates a tremulous male, who comes somewhat with conversation. Complains of epigastric pain. HEENT: Atraumatic normocephalic. Pupils equally round. Oropharynx clear. Neck is supple no lymphadenopathy thyromegaly Cardiovascular tachycardic, regular, no murmur Lungs clear no wheezing or crackles Abdomen is soft with positive bowel sounds. Tenderness is present in the epigastric area. was Damme has deferred Extremities no cyanosis clubbing or edema, cap refill brisk Skin no rash Neuro no obvious focal deficits. Data 09/16/22 04:00 09/16/22 05:43 Other Labs: ABG demonstrates a pH 7.52, PCO2 of 29, PO2 of 114 LFTs demonstrated AST and ALT elevation of 137 112. Bilirubin is normal. Lactate 3.2 Troponin essentially negative Albumin 4.8 Lipase 83 Alcohol level 27 Ketones negative Chest x-ray no infiltrate CT abdomen pelvis no evidence of pancreatitis, markedly fatty liver, 2 cm right hepatic mass thought to be hemangioma EKG demonstrates sinus tachycardia, normal axis A&P Assessment and plan (1) Alcohol withdrawal: Hydration CIWA protocol Thiamine, folate Close monitoring for stabilization. Could consider phenobarbital, or even Precedex if unresponsive to Ativan. 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 Anticoagulation contraindicated until fecal Hemoccult status known Attestations Medical Necessity Statement*: Will need greater than 2 midnight stay for evaluation and treatment of alcohol withdrawal, alcoholic gastritis Coding Level of Care Code Acute Poker Manager for [facility] Fwd Diagnoses Alcohol withdrawal F10.939 Hypertension I10 Abdominal pain R10.9 Anxiety and depression F41.9; F32.A Transaminitis R74.01
--- NOTE | 2022-09-16 09:49 | ECG_ITS ---
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 Measurements Intervals [place] Rate: 111 P: 54 IN: 184 QRS: 45 QRSD: 82 T: 42 QT: 310 QTc: 423 Interpretive Statements SINUS TACHYCARDIA ABNORMAL RHYTHM ECG Compared to ECG 09/16/2022 03:57:58 No significant changes Electronically Signed On 09-16-2022 13:13:36 APRON TRIMMER by Gisella Gaytan M.D. [email or web address] [email or web address] [email or web address] [id number]
[2022-09-16 10:18] LABS: Troponin 5 6HR Delta 0 ng/L (0-12)
[2022-09-16 10:29] LABS: Magnesium 1.3 mg/dL (1.7-2.3); Thyroid Stimulating Hormone 0.86 uIU/mL (0.27-4.20)
[2022-09-16] MEDS: metoprolol tartrate 50 mg Tablet PO ×2 (10:39→20:22)
[2022-09-16] MEDS: sodium chlor 0.45% +KCl 20 mEq 20 MEQ/1,000 ML BAG 150 MEQ IV ×2 (10:40→18:10)
[2022-09-16 10:44] LABS: Hepatitis A Antibody IgM Non-Reactive (Nonreactive); Hepatitis B Core IgM Non-Reactive (Nonreactive); Hepatitis B Surface Antigen Non-Reactive (Nonreactive); Hepatitis C Virus Antibody Non-Reactive (Nonreactive)
[2022-09-16] MEDS: LORazepam 2 mg/mL INJ 1 mL IVP (12:42)
[2022-09-16] MEDS: magnesium sulfate premix 2 GM/50 ML PIGGYBACK IV (17:07)
--- NOTE | 2022-09-16 17:19 | PC.NURSE ---
Per patient request; His ex- : TIARA ABDUL is to have NO contact or information. THe only the two people are listed on his contact list, his ; Tayler Abdul and his mother; Tonja Abdul are to receive any information concerning his stay.
--- NOTE | 2022-09-16 19:20 | PC.NURSE ---
Bedside report completed with OLIMPIA Yost
--- NOTE | 2022-09-16 19:44 | PC.NURSE ---
Shift Note: Pt rested with his eyes closed in bed throughout the shift. Iv fluids with potassium infusing with difficulty. CIWa score 13 and 6 this shift. He received 2mg Ativan IV for the score of 13. He received 2gm of IV magnesium. No nausea or vomiting this shift. His , Tayler, came in this afternoon . He urinated one, 750 ml of dark yellow urine. Frequent safety and comfort rounds continue. Orders and/or nursing care completed as indicated. Patient monitored for response to intervention and treatment(s). Education provided include magnesium, thiamine, folic acid, MVI, Ativan and plan of care. Patient and/or distribution sales representative verbalized understanding of all topics discussed. . Will continue to monitor.
[2022-09-17] VITALS (37 sets, daily range): BP systolic 115–169; BP diastolic 78–122; PULSE 60–151; RESP 12–26; TEMP 36.8–37; O2SAT 95–100; BMI 32.7
[2022-09-17] MEDS: sodium chlor 0.45% +KCl 20 mEq 20 MEQ/1,000 ML BAG 150 MEQ IV ×2 (01:26→08:27)
[2022-09-17] MEDS: ondansetron 2 mg/ML SDV 2 mL 4 MG IVP (01:43)
[2022-09-17] MEDS: LORazepam 2 mg Tablet PO (04:13)
[2022-09-17 04:56] LABS: Eosinophils % 0.6 %; Hematocrit 40.1 % (42.0-52.0); Hemoglobin 13.4 g/dL (11.7-16.6); Lymphocytes # 0.9 10^3/uL (0.8-4.8); Mean Corpuscular HGB Conc 33.4 g/dL (30.0-36.0); Mean Corpuscular Hemoglobin 33.5 pg (28.0-34.0); Mean Corpuscular Volume 100.3 fl (80-94); Mean Platelet Volume 10.3 fL (7.4-10.4); Monocytes # 0.3 10^3/uL (0.2-0.9); Monocytes % 10.3 %; Neutrophils # 1.79 10^3/uL (1.8-7.7); Neutrophils % 57.8 %; Nucleated Red Blood Cells % 0 %; Platelet Count 100 10^3/cmm (130-400); Red Cell Distribution Width 13.2 % (12.1-15.1); White Blood Count 3.1 10^3/uL (4.0-10.0)
[2022-09-17] MEDS: lisinopril 20 mg Tablet 40 MG PO (05:05)
[2022-09-17 05:16] LABS: Alanine Aminotransferase 81 U/L (0-41); Albumin Level 3.9 g/dL (3.5-5.2); Alkaline Phosphatase 90 U/L (40-130); Anion Gap 12.8 (5-19); Aspartate Amino Transferase 105 U/L (0-40); Blood Urea Nitrogen 7 mg/dL (6-20); Carbon Dioxide 27 mmol/L (22-29); Chloride 97 mmol/L (98-107); Globulin 2.9 g/dL (1.3-4.6); Glomerular Filtration Rate 192.7 mL/min (90-130); Glucose 85 mg/dL (65-115); Magnesium 2.2 mg/dL (1.7-2.3); Osmolality Calculated 273 mOsm/kg (285-295); Potassium 3.8 mmol/L (3.5-5.1); Sodium 133 mmol/L (136-145); Total Bilirubin 1.3 mg/dL (0.15-1.2); Total Protein 6.8 g/dL (6.6-8.7)
[2022-09-17] MEDS: LORazepam 2 mg/mL INJ 1 mL 1 MG IVP (07:07)
[2022-09-17] MEDS: pantoprazole 40 mg SDV IVP (08:23)
[2022-09-17] MEDS: folic acid 1 mg Tablet PO (08:24)
[2022-09-17] MEDS: thiamine 100 mg Tablet PO (08:24)
[2022-09-17] MEDS: atorvastatin 40 mg Tablet PO (08:24)
[2022-09-17] MEDS: cloNIDine 0.1 mg Tablet PO (08:24)
[2022-09-17] MEDS: multivitamin therapeutic Tablet 1 TAB PO (08:26)
[2022-09-17] MEDS: metoprolol tartrate 50 mg Tablet PO (08:27)
[2022-09-17] MEDS: LORazepam 2 mg/mL INJ 1 mL IVP (08:53)
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
--- NOTE | 2022-09-17 10:54 | PC.NURSE ---
0721 Patient stated he wanted to go home today and would leave AMA if necessary. This nurse attempted to educate patient that his last CIWA scale was 13 and he was requiring Ativan for withdraw control. Patient stated he would take a drink at home if he needed to to get through withdraw symptoms. This nurse attempted to educate patient on alcohol cessation and S/S of withdraw and advised patient to continue care at this facility. Dr. Fields notified of patient wanting to leave and he came to evaluate him at bedside. After much discussion with patient, Dr. Fields agreed that after evaluation from patient would be able to discharge providing Dr. Khan did not disagree with this. Patient currently sitting at side of bed and requesting IV removed. Patient removed and refuses cardiac monitoring and blood pressure monitoring at this time.
[2022-09-17 11:01] LABS: Amphetamines Screen Urine Negative (Negative); Barbiturates Screen Urine Negative (Negative); Benzodiazepines Screen Urine Positive (Negative); Cocaine Screen Urine Negative (Negative); Opiate Screen Urine Negative (Negative); PCP Screen Urine Negative (Negative); THC Screen Urine Negative (Negative)
--- NOTE | 2022-09-17 12:20 | PC.NURSE ---
Extensive education provided to patient at bedside. IV removed with no complications. Education on home medications, and alcohol cessation, as well as follow up appointments with PCP. Patient verbally agreed to education and had no further questions.
--- NOTE | 2022-09-17 21:46 | PM.DCS ---
Discharge Providers Date of Admission: 09/16/22 09:00 Date of Discharge: September 17, 2022 Attending Provider at Admission: Tal Alan MD Attending Provider at Discharge: Antonio Fields MD Primary Care Provider: Antonio Alvarado MD Diagnoses at Discharge Discharge Diagnosis (1) Marital/partner relational problem: Status: Acute (2) Acute posttraumatic stress disorder: Status: Acute (3) Alcohol abuse: Status: Acute (4) Hypertension: Status: Acute (5) GERD (gastroesophageal reflux disease): Status: Acute (6) Insomnia: Status: Acute (7) Generalized anxiety disorder with panic attacks: Status: Acute (8) Alcohol withdrawal: Status: Acute (9) Abdominal pain: Status: Acute (10) Transaminitis: Status: Acute (11) Anxiety and depression: Status: Acute Reason for Visit Reason for Visit: ANXIETY Hospital Course Hospital Course 32 year old male with PMH H/O Alcohol abuse disorder, HTN, anxiety, depression presenting to the emergency department with complaints of elevated blood pressure, nausea, weakness, tachycardia,he was admitted for the management of alcohol withdrawal,he was kept on CIWA Protocol, i.v hydration, thiamine,folic acid were given, kept on Anti hypertensive medications,psychiatry was board,denied any homicidal,suicidal ideation.At the time of discharge,he was not having any sign or symptoms of withdrawal,he was discharged home in stable condition.He will follow PCP as outpatient. Physical Exam Const: COMMON NORMALS: patient oriented x3 HENMT: COMMON NORMALS: normocephalic and atraumatic HEAD & SCALP: normocephalic and atraumatic Resp: COMMON NORMALS: normal respiratory effort, No retractions, No use of accessory muscles and clear to auscultation bilaterally EFFORT & INSPECTION: Yes symmetric chest movement AUSCULTATION: clear to auscultation bilaterally Cardio: COMMON NORMALS: regular rate, regular rhythm, S1 normal heart sound present, S2 normal heart sound present, No gallops present (Cardio), No murmurs present (Cardio), No rub (Cardio) and Peripheral pulses 2+ throughout RATE: regular rate RHYTHM: regular rhythm HEART SOUNDS: S1 normal heart sound present and S2 normal heart sound present PERIPHERAL PULSES: Peripheral pulses 2+ throughout GI: COMMON NORMALS: Normal to inspection, nondistended, normoactive bowel sounds present, Soft to palpation, non-tender, No hepatosplenomegaly present and no masses AUSCULTATION: Yes normoactive bowel sounds PALPATION: Yes Soft to palpation and Yes No hepatosplenomegaly present RECTAL EXAM: Yes deferred Extremity: COMMON NORMALS: no clubbing, cyanosis or edema and no pedal edema Neuro: COMMON NORMALS: patient oriented x3 Discharge Data Studies Completed and Pending Completed Studies During Hospitalization Category Date Time Status CT abdomen pelvis w con* [id number] Stat Cat Scan 09/16/22 05:11 Completed XR chest 1V portable [id number] Stat Exams 09/16/22 03:51 Completed Radiology Impressions Chest X-Ray 09/16/22 03:51 IMPRESSION: No acute findings. Abdomen/Pelvis CT 09/16/22 05:11 IMPRESSION: 1. No suspicious finding visualized. Findings of pancreatitis have virtually resolved from 06/29/2022. No fluid collection has developed. 2. Markedly fatty liver. A 2 cm right hepatic mass is unchanged from 06/29/2022, probably hemangioma. Laboratory Results WBC 3.1 10^3/uL (4.0-10.0) L 09/17/22 03:55 RBC 4.00 10^6/uL (4.1-5.3) L 09/17/22 03:55 Hgb 13.4 g/dL (11.7-16.6) 09/17/22 03:55 Hct 40.1 % (42.0-52.0) L 09/17/22 03:55 MCV 100.3 fl (80-94) H D 09/17/22 03:55 MCH 33.5 pg (28.0-34.0) 09/17/22 03:55 MCHC 33.4 g/dL (30.0-36.0) 09/17/22 03:55 RDW 13.2 % (12.1-15.1) 09/17/22 03:55 Plt Count 100 10^3/cmm (130-400) L D 09/17/22 03:55 MPV 10.3 fL (7.4-10.4) 09/17/22 03:55 Neut % (Auto) 57.8 % 09/17/22 03:55 Lymph % (Auto) 30.0 % 09/17/22 03:55 [place] % (Auto) 10.3 % 09/17/22 03:55 Eos % (Auto) 0.6 % 09/17/22 03:55 Baso % (Auto) 1.0 % 09/17/22 03:55 Neut # (Auto) 1.79 10^3/uL (1.8-7.7) L 09/17/22 03:55 Lymph # (Auto) 0.9 10^3/uL (0.8-4.8) 09/17/22 03:55 [place] # (Auto) 0.3 10^3/uL (0.2-0.9) 09/17/22 03:55 Eos # (Auto) 0.0 10^3/uL (0.0-0.8) 09/17/22 03:55 Baso # (Auto) 0.0 10^3/uL (0.0-0.1) 09/17/22 03:55 Nucleated RBC % (auto) 0 % 09/17/22 03:55 Nucleated RBCs # 0.0 /100WBC 09/17/22 03:55 PT 13.30 SECONDS (12.1-14.9) 09/16/22 04:00 INR 0.98 (0.8-1.2) 09/16/22 04:00 Specimen Type Arterial 09/16/22 05:11 Sample Site Radial, right 09/16/22 05:11 ABG pH 7.52 (7.35-7.45) H 09/16/22 05:11 ABG pCO2 29.0 mmHg (35-45) L 09/16/22 05:11 ABG pO2 114.0 mmHg (80.0-100.0) H 09/16/22 05:11 ABG HCO3 23.6 mmol/L (22-26) 09/16/22 05:11 ABG Base Excess 1.7 mmol/L (-2.0-2.0) 09/16/22 05:11 Ricardo Test Pos 09/16/22 05:11 Hematocrit 45.1 % (42-52) 09/16/22 05:11 O2 Delivery Device None 09/16/22 05:11 Picture Frame Maker ID [id number] 09/16/22 05:11 Sodium 133 mmol/L (136-145) L 09/17/22 03:55 Potassium 3.8 mmol/L (3.5-5.1) 09/17/22 03:55 Chloride 97 mmol/L (98-107) L 09/17/22 03:55 Carbon Dioxide 27 mmol/L (22-29) 09/17/22 03:55 Anion Gap 12.8 (5-19) 09/17/22 03:55 BUN 7 mg/dL (6-20) 09/17/22 03:55 Creatinine 0.5 mg/dL (0.7-1.2) L 09/17/22 03:55 GFR Calculation 192.7 mL/min (90-130) H 09/17/22 03:55 Glucose 85 mg/dL (65-115) 09/17/22 03:55 Calculated Osmolality 273 mOsm/kg (285-295) L 09/17/22 03:55 Lactate 3.2 mmol/L (0.5-2.2) H 09/16/22 05:43 Calcium 9.0 mg/dL (8.5-10.5) 09/17/22 03:55 Magnesium 2.2 mg/dL (1.7-2.3) 09/17/22 03:55 Total Bilirubin 1.3 mg/dL (0.15-1.2) H 09/17/22 03:55 AST 105 U/L (0-40) H 09/17/22 03:55 ALT 81 U/L (0-41) H 09/17/22 03:55 Alkaline Phosphatase 90 U/L (40-130) 09/17/22 03:55 Troponin T Baseline 6 ng/L (0-15) 09/16/22 04:00 Troponin T 120 Minute 6.00 ng/L (0-15) 09/16/22 05:43 Delta Troponin T 0 ABS# (0-10) 09/16/22 05:43 Troponin T Hi Sens 6Hr 6.00 ng/L (0-15) 09/16/22 09:40 Troponin T Hi Sens 6Hr Delta 0 ng/L (0-12) 09/16/22 09:40 Total Protein 6.8 g/dL (6.6-8.7) 09/17/22 03:55 Albumin 3.9 g/dL (3.5-5.2) 09/17/22 03:55 Globulin 2.9 g/dL (1.3-4.6) 09/17/22 03:55 Lipase 83 U/L (13-60) H 09/16/22 04:00 TSH 0.86 uIU/mL (0.27-4.20) 09/16/22 09:40 Urine Opiates Screen Negative ng/mL (Negative) 09/17/22 10:42 Ur Barbiturates Screen Negative ng/mL (Negative) 09/17/22 10:42 Ur Phencyclidine Scrn Negative ng/mL (Negative) 09/17/22 10:42 Ur Amphetamines Screen Negative ng/mL (Negative) 09/17/22 10:42 U Benzodiazepines Scrn Positive ng/mL (Negative) H 09/17/22 10:42 Urine Cocaine Screen Negative ng/mL (Negative) 09/17/22 10:42 U Marijuana (THC) Screen Negative ng/mL (Negative) 09/17/22 10:42 Ethyl Alcohol 27 mg/dL (0-10) H 09/16/22 04:00 Serum Ketones Negative (Negative) 09/16/22 04:00 Hepatitis A IgM Ab Non-reactive (Nonreactive) 09/16/22 04:00 Hep Bs Antigen Non-reactive (Nonreactive) 09/16/22 04:00 Hep B Core IgM Ab Non-reactive (Nonreactive) 09/16/22 04:00 Hepatitis C Antibody Non-reactive (Nonreactive) 09/16/22 04:00 Vitals Last Vital Signs Temp 98.6 F 09/17/22 12:05 Pulse 82 09/17/22 12:05 Resp 12 09/17/22 12:05 BP 132/94 09/17/22 12:05 Pulse Ox 97 09/17/22 12:05 O2 Del Method 09/17/22 10:06 Discharge Plan Discharge Patient Disposition: Home Condition: Stable Prescriptions: Continued digestive enzymes Tablet 1 tab PO .UP TO TWICE A DAY resveratrol 250 mg capsule 250 - 500 mg PO DAILY PRN (Reason: Inflammation) atorvastatin 40 mg tablet 40 mg PO DAILY Qty: 30 5RF metoclopramide HCl [Reglan] 10 mg tablet 10 mg PO Q6H PRN (Reason: nausea and vomiting) Qty: 90 1RF trazodone 50 mg tablet 25 mg PO BEDTIME Qty: 45 1RF lisinopril 40 mg Tablet 40 mg PO QAM sucralfate [Carafate] 100 mg/mL suspension 1 g PO TID PRN (Reason: ulcers) metoprolol tartrate 100 mg tablet 100 mg PO QAM vitamin B complex Tablet 1 tab PO DAILY Adult Multivitamin Gummies 200 mcg Tablet,Chewable 2 tab PO DAILY Probiotic 3 billion cell Capsule 3,000 mmu cells PO DAILY Rx Instructions: administer with a meal magnesium oxide 400 mg magnesium Tablet 400 mg PO DAILY zinc acetate 50 mg (zinc) Capsule 50 mg PO DAILY potassium gluconate 595 mg (99 mg) Tablet 595 mg PO DAILY clonidine HCl 0.1 mg tablet 0.1 mg PO BID omeprazole 40 mg capsule,delayed release(DR/EC) 40 mg PO QAM ascorbic acid (vitamin C) [Vitamin C] 500 mg Tablet 500 - 1,000 mg PO DAILY cholecalciferol (vitamin D3) [Vitamin D3] 125 mcg (5,000 unit) Tablet 125 mcg PO DAILY Discharge Orders: Discharge Order (Routine); Ordered 09/17/22 Ordered By: Antonio Fields Referrals: Antonio Alvarado MD [Primary Care Provider] - Patient Instructions: Opioid Safety Discharge Attestations Time Spent in Discharge Care*: greater than 30 min Quality Metrics Clinical Quality Measures [ No reported AMI, CVA or VTE this stay] Coding Level of Care Code Acute Chg FW DC note Diagnoses Marital/partner relational problem Z63.0 Acute posttraumatic stress disorder F43.11 Alcohol abuse F10.10 Hypertension I10 GERD (gastroesophageal reflux disease) K21.9 Insomnia G47.00 Generalized anxiety disorder with panic attacks F41.1; F41.0 Alcohol withdrawal F10.939 Abdominal pain R10.9 Transaminitis R74.01 Anxiety and depression F41.9; F32.A
== END 2022-09-17 12:15 | disposition home or self-care (01) | DRG 897 ==
LOC: ER 06:45 → ICU 09:26
PROVIDERS: Emergency Medicine; Psychiatry & Neurology Psychiatry; Admitting Provider Internal Medicine; Emergency Provider Family Medicine; PCP Family Medicine Adult Medicine; Visit Provider Internal Medicine
DX: F10.139 Alcohol abuse with withdrawal, unspecified (principal); Y90.9 Presence of alcohol in blood, level not specified; F43.11 Post-traumatic stress disorder, acute; Z63.0 Problems in relationship with spouse or partner; K29.20 Alcoholic gastritis without bleeding; I10 Essential (primary) hypertension; K21.9 Gastro-esophageal reflux disease without esophagitis; G47.00 Insomnia, unspecified; F41.1 Generalized anxiety disorder; F41.0 Panic disorder [episodic paroxysmal anxiety]; F32.A Depression, unspecified; Z79.891 Long term (current) use of opiate analgesic
CPT/HCPCS: 36415; 36600; 71045; 74177; 80048; 80053; 80074; 80306; 80307; 82009; 82803; 83605; 83690; 83735; 84443; 84484; 85025; 85610; 93005; 96361; 96372; 96374; 96375; 99285; C9113; J1170; J1630; J2060; J2250; J2405; J3411; J3475; J3480; J7030; J7040; Q9967

== ENCOUNTER 2022-09-21 19:13 | Emergency (ER) | payer MEDICAID, SELFPAY ==
[2022-09-21 19:16] VITALS: BP 135/80; PULSE 78; RESP 18; TEMP 36.6; O2SAT 98; BMI 25.7
--- NOTE | 2022-09-21 19:17 | W.ED.WEAKNES ---
HPI - Weakness General: Chief complaint: Seizure Stated complaint: poss seizure Time Seen by Provider: 09/21/22 19:17 History of Present Illness: Mr. Cowan is a 32-year-old gentleman with history of alcohol abuse presenting to the emergency room due to possible seizure. Patient had observed event primarily with upper extremity shaking. No postictal period or loss of continence, no tongue biting. Patient currently feels just generally ill. Intensity symptoms moderate. Course has persisted. No other specific changes in health, exacerbating, or alleviating factors identified. Onset (ago): minute(s) Duration: intermittent Location: generalized Severity: moderate Review of Systems General: Reports: 10 or more systems reviewed and unremarkable except in HPI and below PFSH ED PFSH: Medical History Abdominal pain Acute posttraumatic stress disorder Alcohol abuse Alcohol withdrawal Anxiety and depression Generalized anxiety disorder with panic attacks GERD (gastroesophageal reflux disease) Hyperlipidemia Hypertension Insomnia Marital/partner relational problem Pancreatitis, acute Psychiatric care Transaminitis Surgical History No pertinent past surgical history Family History Father Hypertension Social History Smoking and tobacco status: never smoked Alcohol intake: current Alcohol intake frequency: 0-2 Drinks per Day Marital status: Number of children: 5 Current occupational status: employed Current gender identity: Male Physical Exam Const: COMMON NORMALS: patient oriented x3 and alert GENERAL APPEARANCE: cooperative and well developed HENMT: COMMON NORMALS: normocephalic and atraumatic HEAD & SCALP: normocephalic and atraumatic THROAT: posterior oropharynx normal Eye: COMMON NORMALS: conjunctivae normal CONJUNCTIVA: Yes conjunctivae normal SCLERA: sclerae normal Neck/C-Spine: COMMON NORMALS: supple GENERAL: Yes trachea midline Resp: COMMON NORMALS: normal respiratory effort and clear to auscultation bilaterally EFFORT & INSPECTION: Yes able to speak in complete sentences AUSCULTATION: clear to auscultation bilaterally Cardio: COMMON NORMALS: regular rate and regular rhythm RATE: regular rate RHYTHM: regular rhythm GI: COMMON NORMALS: Soft to palpation PALPATION: Yes Soft to palpation and No Tenderness to palpation present (GI) PERCUSSION: normal to percussion Extremity: GENERAL: Yes normal exam except as noted and No edema Neuro: COMMON NORMALS: patient oriented x3, CN's II-XII intact bilaterally, moves all extremities, no focal motor deficits and no sensory deficits noted SENSORIUM/ORIENTATION: Yes alert and No Orientation impaired Psych: COMMON NORMALS: mental status grossly normal, Normal thought process present, denies homicidal ideation and denies suicidal ideation THOUGHT PROCESS: Normal thought process present Course Vital Signs: Vital signs: Vital Signs Temperature 97.9 F 09/21/22 19:16 Pulse Rate 88 09/21/22 21:23 Respiratory Rate 18 09/21/22 21:23 Blood Pressure 131/76 09/21/22 21:23 Pulse Oximetry 96 09/21/22 21:23 Oxygen Delivery Me thod 09/21/22 19:22 MDM - Weakness Medical Decision Making 32-year-old gentleman presenting with possible seizure-like activity. No focal neurologic deficits on exam. Exam as above. EKG sinus rhythm with nonspecific ST segment abnormalities, no STEMI. Hemoglobin is normal, metabolic panel without acute derangement to explain possible seizure-like episode. Alcohol is markedly elevated which is likely a better estimation for event. Head CT negative for acute intracranial pathology. On reassessment after IV fluids the patient feels significantly improved. He can ambulate with a steady gait, there is no slurring of speech or other obvious neurologic dysfunction, he can tolerate p.o. intake. The patient has a strong desire for discharge and his has come to pick him up. I had a very kristofer conversation with patient regarding his abuse of alcohol. I had a similar conversation with the patient's including offering to observe patient longer here in the emergency department. I discussed the need for close observation given the level of alcohol as well as alcohol cessation and risks of further alcohol abuse. The patient's is comfortable taking him home and will watch him closely. The results of ED evaluation were discussed with the patient including prescriptions and/or symptomatic cares (if applicable) including appropriate and responsible use, followup plan, and return precautions. The patient verbalized understanding and felt safe for discharge. Medical Records I reviewed the patient's medical records. Lab Data I reviewed the patient's lab results. 09/21/22 19:38 09/21/22 19:[address] 09/21/22 19:26 IMPRESSION: 1. No acute intracranial abnormality. 2. Other nonacute findings as above. Laboratory Results Hgb 15.1 g/dL (11.7-16.6) 09/21/22 19:38 Hct 44.1 % (42.0-52.0) 09/21/22 19:38 Sodium 142 mmol/L (136-145) 09/21/22 19:19 Potassium 4.3 mmol/L (3.5-5.1) 09/21/22 19:19 Chloride 99 mmol/L (98-107) 09/21/22 19:19 Carbon Dioxide 27 mmol/L (22-29) 09/21/22 19:19 Anion Gap 20.3 (5-19) H 09/21/22 19:19 BUN 10 mg/dL (6-20) 09/21/22 19:19 Creatinine 0.6 mg/dL (0.7-1.2) L 09/21/22 19:19 GFR Calculation 156.1 mL/min (90-130) H 09/21/22 19:19 Glucose 89 mg/dL (65-115) 09/21/22 19:19 Calculated Osmolality 293 mOsm/kg (285-295) 09/21/22 19:19 Calcium 9.1 mg/dL (8.5-10.5) 09/21/22 19:19 Ethyl Alcohol 409 mg/dL (0-10) H* 09/21/22 19:19 Discharge Plan Discharge Patient Disposition: Home Clinical Impression: Alcohol abuse Condition: Stable Prescriptions: No Action digestive enzymes Tablet 1 tab PO .UP TO TWICE A DAY resveratrol 250 mg capsule 250 - 500 mg PO DAILY PRN (Reason: Inflammation) atorvastatin 40 mg tablet 40 mg PO DAILY Qty: 30 5RF metoclopramide HCl [Reglan] 10 mg tablet 10 mg PO Q6H PRN (Reason: nausea and vomiting) Qty: 90 1RF trazodone 50 mg tablet 25 mg PO BEDTIME Qty: 45 1RF lisinopril 40 mg Tablet 40 mg PO QAM sucralfate [Carafate] 100 mg/mL suspension 1 g PO TID PRN (Reason: ulcers) metoprolol tartrate 100 mg tablet 100 mg PO QAM vitamin B complex Tablet 1 tab PO DAILY Adult Multivitamin Gummies 200 mcg Tablet,Chewable 2 tab PO DAILY Probiotic 3 billion cell Capsule 3,000 mmu cells PO DAILY Rx Instructions: administer with a meal magnesium oxide 400 mg magnesium Tablet 400 mg PO DAILY zinc acetate 50 mg (zinc) Capsule 50 mg PO DAILY potassium gluconate 595 mg (99 mg) Tablet 595 mg PO DAILY clonidine HCl 0.1 mg tablet 0.1 mg PO BID omeprazole 40 mg capsule,delayed release(DR/EC) 40 mg PO QAM ascorbic acid (vitamin C) [Vitamin C] 500 mg Tablet 500 - 1,000 mg PO DAILY cholecalciferol (vitamin D3) [Vitamin D3] 125 mcg (5,000 unit) Tablet 125 mcg PO DAILY Discharge Orders: Discharge ED (Routine); Ordered 09/21/22 Ordered By: Serge Baez Referrals: Antonio Alvarado MD [Primary Care Provider] - Discharge Diet: Usual diet Discharge Activity: Resume usual activity Patient Instructions: Alcohol Intoxication (ED), Abuse of Alcohol (ED) Activity Restrictions/Additional Instructions: Thank you for visiting the emergency department. You were seen evaluated for abnormal neurologic symptoms. The most likely cause of your symptoms is due to alcohol abuse. I recommend frequent reassessment and observation for the next day until alcohol level returns to a safer level. You need to stop drinking. Failure to stop drinking will likely lead to or worse. Return to the emergency department for anything that you are concerned about a feel needs emergency department evaluation. Coding Level of Care Code ED [employer] for Al Duran
[2022-09-21 19:22] VITALS: PULSE 93; O2SAT 96
--- NOTE | 2022-09-21 19:26 | CTR_ITS ---
PROCEDURE INFORMATION: Exam: CT Head Without Contrast Exam date and time: 09/21/2022 7:46 PM Age: 32 years old Clinical indication: Condition or disease; Convulsions or seizures; Unspecified; Patient HX: Unwitnessed possible seizure. Patients RT extremity is drawn with tremors. History of seizures. ETOH on board. TECHNIQUE: Imaging protocol: Computed tomography of the head without contrast. Radiation optimization: All CT scans at this facility use at least one of these dose optimization techniques: automated exposure control; mA and/or kV adjustment per patient size (includes targeted exams where dose is matched to clinical indication); or iterative reconstruction. COMPARISON: CT head wo con* [id number] 12/29/2018 8:39 PM RADIATION DOSE METRICS: Total DLP (mGy-cm): 1193.78 FINDINGS: Brain: Minimal atrophy which is somewhat more than expected for age. No hemorrhage. Unremarkable white matter. No mass effect. Cerebral ventricles: No ventriculomegaly. Paranasal sinuses: Visualized sinuses are unremarkable. No fluid levels. Mastoid air cells: Visualized mastoid air cells are well aerated. Bones/joints: Unremarkable. No acute fracture. Soft tissues: Unremarkable. CT/CT head wo con* [id number] IMPRESSION: 1. No acute intracranial abnormality. 2. Other nonacute findings as above.
--- NOTE | 2022-09-21 19:32 | ECG_ITS ---
[facility] Test Date: 2022-09-21 Pat Name: Buddy Cowan Department: Room: Gender: Male Marina Porter: : 1990 Requested By: Serge Baez Order Number: [id number] Thomas MD: Jorje Eller M.D. Measurements Intervals [place] Rate: 95 P: 51 IL: 191 QRS: 51 QRSD: 89 T: 49 QT: 320 QTc: 403 Interpretive Statements SINUS RHYTHM NONSPECIFIC T-WAVE ABNORMALITY Compared to ECG 09/16/2022 09:49:23 T-wave abnormality now present Sinus tachycardia no longer present Electronically Signed On 09-23-2022 13:55:39 COLOR MIXER by Jorje Eller M.D. [email or web address]
[2022-09-21] MEDS: sodium chloride 0.9% 1,000 ML 999 ML IV (19:40)
[2022-09-21 19:52] LABS: Blood Urea Nitrogen 10 mg/dL (6-20); Calcium 9.1 mg/dL (8.5-10.5); Carbon Dioxide 27 mmol/L (22-29); Chloride 99 mmol/L (98-107); Glomerular Filtration Rate 156.1 mL/min (90-130); Glucose 89 mg/dL (65-115); Osmolality Calculated 293 mOsm/kg (285-295); Sodium 142 mmol/L (136-145)
[2022-09-21 19:53] LABS: Anion Gap 20.3 (5-19); Potassium 4.3 mmol/L (3.5-5.1)
[2022-09-21 19:55] LABS: Alcohol Level 409 mg/dL (0-10)
[2022-09-21 19:58] LABS: Hematocrit 44.1 % (42.0-52.0); Hemoglobin 15.1 g/dL (11.7-16.6)
[2022-09-21 21:23] VITALS: BP 131/76; PULSE 88; RESP 18; O2SAT 96
== END 2022-09-21 21:22 | disposition home or self-care (01) ==
PROVIDERS: Emergency Provider Emergency Medicine; PCP Family Medicine Adult Medicine
DX: F10.10 Alcohol abuse, uncomplicated (principal); Y90.8 Blood alcohol level of 240 mg/100 ml or more; E78.5 Hyperlipidemia, unspecified; I10 Essential (primary) hypertension
CPT/HCPCS: 70450; 80048; 80307; 85014; 85018; 93005; 96360; 99285; J7030

== ENCOUNTER 2022-11-29 16:24 | Inpatient (IN) | payer MEDICAID, SELFPAY ==
[2022-11-29] VITALS (57 sets, daily range): BP systolic 124–153; BP diastolic 75–99; PULSE 87–129; RESP 13–85; TEMP 37.1; O2SAT 96–100
--- NOTE | 2022-11-29 17:46 | PC.NURSE ---
INFORMED DR. CHASE OF PT HR OF 140 BPM HE VERBALIZED UNDERSTANDING NO FURTHER ORDERS. REPORT GIVEN TO LAKEISHA DOAN.
--- NOTE | 2022-11-29 17:51 | CTR_ITS ---
PROCEDURE INFORMATION: Exam: CT Abdomen And Pelvis With Contrast Exam date and time: 11/29/2022 6:49 PM Age: 32 years old Clinical indication: Vomiting; Additional info: Epigastric pain TECHNIQUE: Imaging protocol: Computed tomography of the abdomen and pelvis with contrast. Radiation optimization: All CT scans at this facility use at least one of these dose optimization techniques: automated exposure control; mA and/or kV adjustment per patient size (includes targeted exams where dose is matched to clinical indication); or iterative reconstruction. Contrast material: OMNIPAQUE 350; Contrast volume: 95 ml; Contrast route: INTRAVENOUS (IV); REPORTING DATA: Count of CT and Cardiac NM exams in prior 12 months: This patient has received 8 known CTs and 0 known cardiac nuclear medicine studies in the 12 months prior to the current study. COMPARISON: CT abdomen pelvis w con* [id number] 09/16/2022 5:44 AM RADIATION DOSE METRICS: Total DLP (mGy-cm): 805.33 FINDINGS: Liver: The liver is enlarged measuring 24 cm craniocaudal with marked diffuse fatty infiltration similar to the previous study. There is a 2 cm inferior right hepatic lobe mass which is unchanged in incompletely characterized possibly a hemangioma . Gallbladder and bile ducts: Normal. No calcified stones. No ductal dilation. Pancreas: There is subtle haziness of the fat adjacent to the head/uncinate process of the pancreas for example on series 3, image 40 which may represent mild acute pancreatitis. No fluid collection or abscess. Spleen: Normal. No splenomegaly. Adrenal glands: Normal. No mass. Kidneys and ureters: Normal. No hydronephrosis. Stomach and bowel: Decompressed versus thickened stomach. Appendix: No evidence of appendicitis. Intraperitoneal space: Unremarkable. No free air. No significant fluid collection. Vasculature: Unremarkable. No abdominal aortic aneurysm. Lymph nodes: Unremarkable. No enlarged lymph nodes. Urinary bladder: Unremarkable as visualized. Reproductive: Unremarkable as visualized. Bones/joints: Unremarkable. No acute fracture. Soft tissues: Unremarkable. CT/CT abdomen pelvis w con* [id number] IMPRESSION: 1. Possible mild acute proximal pancreatitis. No evidence of complication. Correlate with clinical/laboratory findings. 2. Hepatomegaly with fatty infiltration of the liver is unchanged. Probable hemangioma inferior right hepatic lobe is unchanged. 3. Findings suspicious for gastritis.
--- NOTE | 2022-11-29 17:56 | W.ED.ABDPA2 ---
HPI - Abdominal Pain General: Chief Complaint: Abdominal Pain Stated Complaint: N/V Hallucinations Time Seen by Provider: 11/29/22 17:08 Source: patient Limitations: no limitations History of Present Illness: This 32-year-old male with a history of chronic pancreatitis presents with epigastric pain that has been going on for days . It is associated with multiple episodes of vomiting. In the last 3 days, patient has not been able to sleep at night. He reports falling down a tall flight of stairs yesterday and hitting his head. Since then, he has been feeling weird . Around 3 AM this morning, he tried to drink half a bottle of wine but could not hold it down due to vomiting. He has no fever, chest pain or cough of concern. He appears to be uncomfortable. Associated Symptoms: Reports nausea and vomiting; Denies chills and dysuria Review of Systems Const: Denies: chills, body aches or change in appetite Card: Denies: chest pain or lightheadedness GI: Reports: abdominal pain, nausea and vomiting : Denies: dysuria Musc: Denies: neck pain or back pain Neuro: Denies: headache(s) or weakness in extremities Psych: Denies: depression Kris/Lymph: Denies: easy bruising All/Imm: Denies: urticaria, tongue swelling or facial swelling PFSH ED PFSH: Medical History Abdominal pain Acute posttraumatic stress disorder Alcohol abuse Alcohol withdrawal Anxiety and depression Generalized anxiety disorder with panic attacks GERD (gastroesophageal reflux disease) Hyperlipidemia Hypertension Insomnia Marital/partner relational problem Pancreatitis, acute Psychiatric care Transaminitis Surgical History No pertinent past surgical history Family History Father Hypertension Social History Smoking and tobacco status: never smoked Alcohol intake: current Alcohol intake frequency: 0-2 Drinks per Day Marital status: Number of children: 5 Current occupational status: employed Current gender identity: Male Physical Exam Const: COMMON NORMALS: patient oriented x3, no limitations and alert OTHER: Distress due to epigastric pain HENMT: COMMON NORMALS: normocephalic HEAD & SCALP: normocephalic Neck/C-Spine: COMMON NORMALS: full ROM and supple Chest: COMMONS NORMALS: normal inspection of the chest Resp: COMMON NORMALS: normal respiratory effort, No retractions, No use of accessory muscles and clear to auscultation bilaterally AUSCULTATION: clear to auscultation bilaterally Cardio: COMMON NORMALS: regular rate, regular rhythm and No murmurs present (Cardio) RATE: regular rate RHYTHM: regular rhythm GI: COMMON NORMALS: Normal to inspection, nondistended, normoactive bowel sounds present OTHER: Soft abdomen, no distention, tenderness in the epigastric region. Normal bowel sounds. : COMMON NORMALS: Yes no CVA tenderness BLADDER/KIDNEY EXAM: Yes no CVA tenderness Back/Pelvis: COMMON NORMALS: no CVA tenderness and no thoracic nor lumbar tenderness Extremity: GENERAL: Yes normal exam except as noted Neuro: COMMON NORMALS: patient oriented x3 and no focal motor deficits SENSORIUM/ORIENTATION: Yes alert Psych: COMMON NORMALS: mental status grossly normal and cooperative Course Vital Signs: Vital signs: Vital Signs Temperature 98.7 F 11/29/22 16:26 Pulse Rate 114 H 11/29/22 19:30 Respiratory Rate 20 H 11/29/22 19:30 Blood Pressure 144/90 11/29/22 19:30 Pulse Oximetry 100 11/29/22 19:30 Oxygen Delivery Me thod 11/29/22 16:26 MDM - Abdominal Pain Medical Decision Making Medical decision making: Patient has a history of recurrent pancreatitis and still drinks alcohol on a regular basis. Last attempt at drinking was around 3 AM and though he could not keep it down. Lipase level is elevated and CT abdomen/pelvis is suggestive of mild pancreatitis. IV fluids and pain medications administered. Case discussed with Dr. Reagan who accepted patient for admission. Lab Data 11/29/22 18:03 11/29/22 18:03 Labs/Radiology: Radiology Impressions Abdomen/Pelvis CT 11/29/22 17:51 IMPRESSION: 1. Possible mild acute proximal pancreatitis. No evidence of complication. Correlate with clinical/laboratory findings. 2. Hepatomegaly with fatty infiltration of the liver is unchanged. Probable hemangioma inferior right hepatic lobe is unchanged. 3. Findings suspicious for gastritis. Head CT 11/29/22 18:19 IMPRESSION: No acute intracranial abnormality. Laboratory Results WBC 5.0 10^3/uL (4.0-10.0) 11/29/22 18: RBC 4.79 10^6/uL (4.1-5.3) 11/29/22 18:03 Hgb 15.8 g/dL (11.7-16.6) 11/29/22 18:03 Hct 44.7 % (42.0-52.0) 11/29/22 18: MCV 93.3 fl (80-94) 11/29/22 18: MCH 33.0 pg (28.0-34.0) 11/29/22 18: MCHC 35.3 g/dL (30.0-36.0) 11/29/22 18: RDW 11.1 % (12.1-15.1) L 11/29/22 18:03 Plt Count 158 10^3/cmm (130-400) 11/29/22 18: MPV 9.6 fL (7.4-10.4) 11/29/22 18:03 Neut % (Auto) 76.4 % 11/29/22 18:03 Lymph % (Auto) 11.1 % 11/29/22 18:03 Bay % (Auto) 12.1 % 11/29/22 18:03 Eos % (Auto) 0.0 % 11/29/22 18:03 Baso % (Auto) 0.2 % 11/29/22 18:03 Neut # (Auto) 3.79 10^3/uL (1.8-7.7) 11/29/22 18:03 Lymph # (Auto) 0.6 10^3/uL (0.8-4.8) L 11/29/22 18:03 Bay # (Auto) 0.6 10^3/uL (0.2-0.9) 11/29/22 18:03 Eos # (Auto) 0.0 10^3/uL (0.0-0.8) 11/29/22 18:03 Baso # (Auto) 0.0 10^3/uL (0.0-0.1) 11/29/22 18:03 Nucleated RBC % (auto) 0 % 11/29/22 18: Nucleated RBCs # 0.0 /100WBC 11/29/22 18:03 Sodium 129 mmol/L (136-145) L 11/29/22 18:03 Potassium 4.1 mmol/L (3.5-5.1) 11/29/22 18:03 Chloride 84 mmol/L (98-107) L 11/29/22 18:03 Carbon Dioxide 19 mmol/L (22-29) L 11/29/22 18:03 Anion Gap 30.1 (5-19) H 11/29/22 18:03 BUN 9 mg/dL (6-20) 11/29/22 18:03 Creatinine 0.7 mg/dL (0.7-1.2) 11/29/22 18:03 GFR Calculation 130.7 mL/min (90-130) H 11/29/22 18:03 Glucose 77 mg/dL (65-115) 11/29/22 18:03 Calculated Osmolality 265 mOsm/kg (285-295) L 11/29/22 18:03 Calcium 10.2 mg/dL (8.5-10.5) 11/29/22 18:03 Total Bilirubin 1.3 mg/dL (0.15-1.2) H 11/29/22 18:03 AST 165 U/L (0-40) H 11/29/22 18:03 ALT 119 U/L (0-41) H 11/29/22 18:03 Alkaline Phosphatase 100 U/L (40-130) 11/29/22 18:03 Total Protein 8.4 g/dL (6.6-8.7) 11/29/22 18:03 Albumin 4.9 g/dL (3.5-5.2) 11/29/22 18:03 Globulin 3.5 g/dL (1.3-4.6) 11/29/22 18:03 Lipase 235 U/L (13-60) H 11/29/22 18:03 Discharge Plan Discharge Patient Disposition: Admitted As Inpatient Clinical Impression: Acute on chronic pancreatitis, Alcohol abuse Condition: Stable Coding Level of Care Code ED Production Support Specialist for Al Duran
[2022-11-29] MEDS: morphine 4 mg/mL SDV 1 mL IVP (18:17)
[2022-11-29] MEDS: metoclopramide 5 mg/mL SDV 2 mL 10 MG IVP (18:18)
[2022-11-29] MEDS: sodium chloride 0.9% 1,000 ML 999 ML IV ×2 (18:19→19:58)
--- NOTE | 2022-11-29 18:19 | CTR_ITS ---
PROCEDURE INFORMATION: Exam: CT Head Without Contrast Exam date and time: 11/29/2022 6:41 PM Age: 32 years old Clinical indication: Injury or trauma; Fall; Blunt trauma (contusions or hematomas); Additional info: Fell down a flight of stairs, loc undetermined TECHNIQUE: Imaging protocol: Computed tomography of the head without contrast. Radiation optimization: All CT scans at this facility use at least one of these dose optimization techniques: automated exposure control; mA and/or kV adjustment per patient size (includes targeted exams where dose is matched to clinical indication); or iterative reconstruction. REPORTING DATA: Count of CT and Cardiac NM exams in prior 12 months: This patient has received 7 known CTs and 0 known cardiac nuclear medicine studies in the 12 months prior to the current study. COMPARISON: CT head wo con* [id number] 09/21/2022 7:46 PM RADIATION DOSE METRICS: Total DLP (mGy-cm): 1147.28 FINDINGS: Brain: Normal. No hemorrhage. Unremarkable white matter. No mass effect. Cerebral ventricles: No ventriculomegaly. Paranasal sinuses: Visualized sinuses are unremarkable. No fluid levels. Mastoid air cells: Visualized mastoid air cells are well aerated. Bones/joints: Unremarkable. No acute fracture. Soft tissues: Unremarkable. CT/CT head wo con* [id number] IMPRESSION: No acute intracranial abnormality.
[2022-11-29 18:25] LABS: Basophils % 0.2 %; Hematocrit 44.7 % (42.0-52.0); Hemoglobin 15.8 g/dL (11.7-16.6); Lymphocytes # 0.6 10^3/uL (0.8-4.8); Lymphocytes % 11.1 %; Mean Corpuscular HGB Conc 35.3 g/dL (30.0-36.0); Mean Corpuscular Volume 93.3 fl (80-94); Mean Platelet Volume 9.6 fL (7.4-10.4); Monocytes # 0.6 10^3/uL (0.2-0.9); Monocytes % 12.1 %; Neutrophils # 3.79 10^3/uL (1.8-7.7); Neutrophils % 76.4 %; Nucleated Red Blood Cells % 0 %; Platelet Count 158 10^3/cmm (130-400); Red Blood Count 4.79 10^6/uL (4.1-5.3); Red Cell Distribution Width 11.1 % (12.1-15.1)
[2022-11-29 18:38] LABS: Alanine Aminotransferase 119 U/L (0-41); Albumin Level 4.9 g/dL (3.5-5.2); Alkaline Phosphatase 100 U/L (40-130); Anion Gap 30.1 (5-19); Aspartate Amino Transferase 165 U/L (0-40); Blood Urea Nitrogen 9 mg/dL (6-20); Calcium 10.2 mg/dL (8.5-10.5); Carbon Dioxide 19 mmol/L (22-29); Chloride 84 mmol/L (98-107); Globulin 3.5 g/dL (1.3-4.6); Glomerular Filtration Rate 130.7 mL/min (90-130); Glucose 77 mg/dL (65-115); Lipase 235 U/L (13-60); Osmolality Calculated 265 mOsm/kg (285-295); Potassium 4.1 mmol/L (3.5-5.1); Sodium 129 mmol/L (136-145); Total Bilirubin 1.3 mg/dL (0.15-1.2); Total Protein 8.4 g/dL (6.6-8.7)
[2022-11-29] MEDS: iohexol 350 mg/mL 500 mL Btl (per mL) IV (18:53)
[2022-11-29] MEDS: fentaNYL 50 mcg/mL INJ 2mL IVP (19:20)
[2022-11-29] MEDS: LORazepam 2 mg/mL INJ 1 mL 1 MG IVP (20:51)
[2022-11-29 21:15] LABS: Triglycerides 74 mg/dL (0-150)
[2022-11-29 21:32] LABS: Lactic Sepsis W/Reflex 1.9 mmol/L (0.5-2.2)
[2022-11-29 21:53] LABS: Alcohol Level < 10 mg/dL (0-10)
[2022-11-29] MEDS: dextrose 5%-sod chloride 0.9% 1,000 ML 75 ML IV (22:01)
--- NOTE | 2022-11-29 22:40 | P.HP_ITS ---
Providers/Chief Complaint Admitting Physician: Tony Reagan MD Primary Care Provider: Antonio Alvarado MD Chief Complaint: N/V Hallucinations History of Present Illness Buddy Cowan is a 32 year old male with past medical history of alcohol abuse with multiple admissions for alcohol withdrawal and pancreatitis presents to the ER today because of worsening epigastric pain for last 4 to 5 days radiating to back along with nausea and bilious vomiting getting worse since last night when he tried to eat solid food and consumed alcohol. After the patient he has been sober till very recently when because of stressful situations at home because of his mother being sick he started consuming alcohol again on and off. He also gives history of marijuana use and denies any other recreational drugs. Denies any hematemesis, diarrhea or fevers. Also gives history of recent fall from stairs after which he started having pain in his back and nape of his neck. He states he hit his head when he fell. On examination laying comfortably in bed complaining of abdominal pain asking for pain medication. States morphine usually does not work for him and he gets better relief with Dilaudid. Does give history of alcohol withdrawal seizures in the past though has never been admitted for the same and has never been intubated. Review of Systems General: Reports: 10 or more systems reviewed and unremarkable except in HPI and below Const: Denies: fever(s), chills, body aches, change in appetite, change in weight, malaise, night sweats, diaphoresis, change in sleep pattern, daytime sleepiness or snoring Eyes: Denies: change in vision, blurry vision, photophobia, eye discomfort or eye discharge ENMT: Denies: throat pain, enlarged tonsils, hoarseness, mouth pain, oral sores, dry mouth, tinnitus, nasal congestion or post nasal drip Card: Denies: chest pain, palpitations, irregular heart rhythm, edema, swelling of feet/ankles, lightheadedness, syncope, pre-syncope, dyspnea on exertion, orthopnea, leg pain with exertion or acrocyanosis Resp: Denies: dyspnea, productive cough, non-productive cough, wheezing, stridor, pain on inspiration, change in phlegm color, hemoptysis or chest congestion GI: Denies: abdominal pain, nausea, vomiting, hematemesis, coffee ground emesis, dysphagia, heartburn, diarrhea, constipation, bloating, GI cramping, change in bowel habits, pain on defecation, hematochezia or melena : Denies: flank pain, difficulty urinating, dysuria, urinary frequency, urinary urgency, urinary hesitancy, urinary dribbling, difficulty starting urination, change in urine stream, nocturia or hematuria Musc: Denies: neck pain, back pain, extremity pain, joint pain, joint swelling, joint redness, joint stiffness or limited range of motion Neuro: Denies: headache(s), numbness in extremities, weakness in extremities, sensory changes, lack of coordination, difficulty walking, frequent falls, dizziness, vertigo, confusion, Slurred speech present, difficulty communicating thoughts or seizure-like activity Psych: Denies: anxiety, depression, mood swings, panic attacks, hopelessness or irritability Endo: Denies: polyuria, polydipsia, tired all the time, cold intolerance, excessive sweating, flushing or heat intolerance Kris/Lymph: Denies: easy bruising or easy bleeding All/Imm: Denies: tongue swelling, facial swelling or acute wheezing Medications/Allergies Home Medications Medication Instructions Recorded Confirmed Last Taken Type lisinopril 40 mg tablet 40 mg PO QAM 01/30/21 09/16/22 01/30/21 History digestive enzymes 1 tab PO .UP TO TWICE A DAY 01/18/22 09/16/22 Unknown History resveratrol 250 mg capsule 250 - 500 mg PO DAILY PRN 01/18/22 09/16/22 Unknown History Inflammation atorvastatin 40 mg tablet 40 mg PO DAILY High cholesterol 02/22/22 09/16/22 2 Weeks Ago Rx and fats #30 tabs ~09/02/22 last filled 07/16/22 metoprolol tartrate 100 mg tablet 100 mg PO QAM 05/04/22 09/16/22 Unknown History metoclopramide HCl 10 mg tablet 10 mg PO Q6H PRN nausea and 05/20/22 09/16/22 Unknown Rx (Reglan) vomiting #90 tabs lactobacillus combination no.4 3 3,000 mmu cells PO DAILY 06/13/22 09/16/22 Unknown History billion cell capsule (Probiotic) magnesium oxide 400 mg PO DAILY 06/13/22 09/16/22 Unknown History multivitamin with minerals-folic 2 tab PO DAILY 06/13/22 09/16/22 Unknown History acid 200 mcg chewable tablet (Adult Multivitamin Gummies) vitamin B complex 1 tab PO DAILY 06/13/22 09/16/22 Unknown History ascorbic acid (vitamin C) 500 mg 500 - 1,000 mg PO DAILY 06/29/22 09/16/22 Unknown History tablet (Vitamin C) cholecalciferol (vitamin D3) 125 125 mcg PO DAILY 06/29/22 09/16/22 Unknown History mcg (5,000 unit) tablet (Vitamin D3) trazodone 50 mg tablet 25 mg PO BEDTIME #45 tabs 08/21/22 09/16/22 Unknown Rx clonidine HCl 0.1 mg tablet 0.1 mg PO BID 09/16/22 09/16/22 Unknown History potassium gluconate 595 mg (99 mg) 595 mg PO DAILY 09/16/22 09/16/22 Unknown History tablet zinc acetate 50 mg (zinc) capsule 50 mg PO DAILY 09/16/22 09/16/22 Unknown History omeprazole 40 mg capsule,delayed 40 mg PO QAM #90 caps 10/14/22 Unknown Rx release sucralfate 100 mg/mL oral 1 g (10 mL) PO TID PRN ulcers #420 11/04/22 Unknown Rx suspension (Carafate) mL Allergies Allergy/AdvReac Type Severity Reaction Status Date / Time aspirin Allergy Unknown Unknown Verified 09/21/22 19:21 NSAIDS (Non-Steroidal Allergy Unknown Unknown Verified 09/21/22 19:21 Anti-Inflamma acetaminophen [From Tylenol] Allergy ADR-Gastrointestinal Verified 09/21/22 19:21 Upset zolpidem [From Ambien] Allergy ADR-Nightma Verified 09/21/22 19:21 re buspirone AdvReac Intermediate ADR-Anxiety Verified 09/21/22 19:21 PFSH Acute PFSH: Medical History (Updated 11/29/22 @ 23:20 by Tony Reagan MD) Abdominal pain Acute posttraumatic stress disorder Alcohol abuse Alcohol withdrawal Anxiety and depression Generalized anxiety disorder with panic attacks GERD (gastroesophageal reflux disease) Hyperlipidemia Hypertension Insomnia Marital/partner relational problem Pancreatitis, acute Psychiatric care Transaminitis Surgical History No pertinent past surgical history Family History Father Hypertension Social History Smoking and tobacco status: never smoked Alcohol intake: current Alcohol intake frequency: 0-2 Drinks per Day Marital status: Number of children: 5 Current occupational status: employed Current gender identity: Male Vitals/I&O/Wt Last Vital Signs Temp 98.7 F 11/29/22 16:26 Pulse 114 H 11/29/22 19:30 Resp 20 H 11/29/22 19:30 BP 144/90 11/29/22 19:30 Pulse Ox 100 11/29/22 19:30 O2 Del Method 11/29/22 16:26 11/29/22 11/29/22 11/29/22 06:59 14:59 22:59 Intake Total 1999 Balance 1999 Weight last 48 hrs Weight 86.183 kg Physical Exam Narrative: General: No acute distress, AO x3, mild tremors and jittery, no cold sweats HEENT: PERRLA, pupils bilaterally equal and reactive Chest: Normal vesicular breath sounds, no added sounds, equal good air entry bilaterally CVS: S1-S2 regular, no murmurs, no tachycardia, no gallops, no rubs Abdomen: Soft, nontender, no organomegaly, bowel sounds present Neuro: No focal deficits, no facial deformity, AO x3, power 5/5 in all limbs Data 11/29/22 18:03 11/29/22 18:03 A&P Assessment and plan (1) Acute on chronic pancreatitis: Appreciate CT abdomen pelvis results. Negative for gallstones. Triglycerides within normal limits. Most likely alcohol induced pancreatitis. Conservative treatment. Start on clear liquid diet. IV hydration with D5 NS at 75 cc/h after banana bag infusion. Dilaudid 0.4 mg IV every 6 hourly. Protonix 40 mg IV daily, Zofran as needed for vomiting and nausea. (2) Alcohol withdrawal: States has been sober till very recently for last few months. Alcohol levels appreciated. [facility] protocol Ativan. Seizure and fall precautions. Check urine drug screen. (3) Hyponatremia: Most likely in setting of poor oral intake and multiple episodes of vomiting. Fluid as above. Monitor BMP daily for now. Check urine lites. (4) Transaminitis: (5) High anion gap metabolic acidosis: Most likely in setting of starvation ketosis. Check lactate levels. Blood glucose within normal limits. Monitor BMP daily for now. (6) Alcohol abuse: (7) Hypertension: Goal blood pressure less than 140/90 mmHg. Continue home medications including clonidine 0.1 mg twice daily, lisinopril 40 mg oral daily, metoprolol 100 mg daily. (8) Fall: Unknown etiology. Could be mechanical. CT head appreciated for no acute abnormality. Check cervical spine x-ray. Fall precautions. Plan Continue other chronic home medications including Carafate, trazodone. Hold off on starting statins for now. Full code. Clear liquid diet. Protonix OPD prophylaxis Heparin for DVT prophylaxis. Admit to [facility]. Attestations Medical Necessity Statement*: Admission for more than 2 midnights for management of acute on chronic alcoholic induced pancreatitis, alcohol withdrawal and Moderate Time for a total of 60 minutes, includes reviewing past or interval history, examining/interviewing patient, placing orders, counseling patient/family/other support, updating patient/family/other support, discussing plan of care with staff, communicating with other healthcare providers, documenting encounter and coordinating care Diagnoses Acute on chronic pancreatitis K85.90; K86.1 Alcohol withdrawal F10.939 Hyponatremia E87.1 Transaminitis R74.01 High anion gap metabolic acidosis E87.29 Alcohol abuse F10.10 Hypertension I10 Fall W19.XXXA
--- NOTE | 2022-11-29 23:13 | XRR_ITS ---
PROCEDURE INFORMATION: Exam: XR Spine; Cervical Exam date and time: 11/30/2022 12:08 AM Age: 32 years old Clinical indication: Injury or trauma; Fall; Injury: Pain; Additional info: Post fall TECHNIQUE: Imaging protocol: XR of the spine. Exam focused on the cervical spine. Views: 1 view. COMPARISON: CR XR cervical spine 3V* [id number] 04/04/2016 4:07 PM FINDINGS: Bones/joints: Straightening of the cervical spine which may be positional or related to spasm. This is similar to the previous study. No acute osseous injury seen. Soft tissues: Normal. XR/XR cervical spine 1V [id number] IMPRESSION: No acute findings.
[2022-11-29] MEDS: folic acid 1 MG, multivitamin inj 10 ML, thiamine 100 MG in sodium chloride 0.9% 1,000 ML 252.8 MG IV (23:40)
[2022-11-29] MEDS: heparin 5,000 unit/mL INJ 1 mL 5000 UNIT SUBCUT (23:50)
[2022-11-30] VITALS (14 sets, daily range): BP systolic 114–152; BP diastolic 71–99; PULSE 57–107; RESP 16–20; TEMP 36.6–36.9; O2SAT 91–99
[2022-11-30] MEDS: HYDROmorphone 1 mg/mL INJ 1 mL 0.4 MG IVP ×4 (00:21→21:46)
[2022-11-30 01:00] LABS: Glucose Point of Care 75 mg/dL (70-110)
[2022-11-30 01:23] LABS: Amphetamines Screen Urine Negative (Negative); Barbiturates Screen Urine Negative (Negative); Benzodiazepines Screen Urine Negative (Negative); Cocaine Screen Urine Negative (Negative); Opiate Screen Urine Positive (Negative); PCP Screen Urine Negative (Negative); THC Screen Urine Negative (Negative)
[2022-11-30 01:31] LABS: Protein Urine 1+ (Negative); Specific Gravity, Urine 1.015 (1.005-1.030); Urine Appearance Clear (CLEAR); Urine Color Yellow (Yellow); pH Urine 5 (5-7)
[2022-11-30 01:32] LABS: Bilirubin Urine Neg (Negative); Blood Urine Neg (Negative); Glucose Urine UA Norm (Normal); Ketones Urine 3+ (Negative); Leukocyte Esterase Urine Negative (Negative); Nitrate Urine Negative (Negative); Urobilinogen Urine Norm (Negative)
[2022-11-30 01:33] LABS: Add Urine Microscopic? YES; Potassium, Radom Urine 50 mmol/L; Urine Random Sodium 86 mmol/L
[2022-11-30 01:36] LABS: RBC Urine 0-4 /hpf (0-2); Squamous Epithelial Cell Urine 0-4 /hpf (0-5); WBC Urine 0-4 /hpf (0-5)
[2022-11-30] MEDS: LORazepam 2 mg/mL INJ 1 mL IVP ×2 (01:36→05:34)
[2022-11-30 01:37] LABS: Mucus Urine 1+ /hpf
[2022-11-30 01:42] LABS: Urine Random Chloride 19 mmol/L
[2022-11-30 03:43] LABS: Iron 220 ug/dL (59-158)
[2022-11-30 03:54] LABS: Percent Saturation 88.3 % (20-50); Total Iron Binding Capacity 249 mcg/dl; Unsaturated Iron Binding 29 ug/dL (112-347)
[2022-11-30 03:57] LABS: Vitamin B12 1332 pg/mL (232-1245)
[2022-11-30 03:59] LABS: Folate Level 10.1 ng/mL (4.5-32.2)
[2022-11-30 04:34] LABS: Basophils % 0.7 %; Eosinophils % 0.2 %; Hematocrit 37.2 % (42.0-52.0); Hemoglobin 12.5 g/dL (11.7-16.6); Lymphocytes # 1.3 10^3/uL (0.8-4.8); Lymphocytes % 27.5 %; Mean Corpuscular HGB Conc 33.6 g/dL (30.0-36.0); Mean Corpuscular Hemoglobin 33.3 pg (28.0-34.0); Mean Corpuscular Volume 99.2 fl (80-94); Mean Platelet Volume 10.2 fL (7.4-10.4); Monocytes # 0.6 10^3/uL (0.2-0.9); Monocytes % 13.1 %; Neutrophils # 2.67 10^3/uL (1.8-7.7); Neutrophils % 58.3 %; Nucleated Red Blood Cells % 0 %; Platelet Count 113 10^3/cmm (130-400); Red Blood Count 3.75 10^6/uL (4.1-5.3); Red Cell Distribution Width 11.5 % (12.1-15.1); White Blood Count 4.6 10^3/uL (4.0-10.0)
[2022-11-30 04:50] LABS: Estmated Average Glucose 85; Hemoglobin A1C 4.6 % (4.0-6.0)
[2022-11-30 04:59] LABS: Alanine Aminotransferase 81 U/L (0-41); Albumin Level 3.8 g/dL (3.5-5.2); Alkaline Phosphatase 71 U/L (40-130); Aspartate Amino Transferase 95 U/L (0-40); Blood Urea Nitrogen 8 mg/dL (6-20); Calcium 8.2 mg/dL (8.5-10.5); Carbon Dioxide 16 mmol/L (22-29); Chloride 97 mmol/L (98-107); Chol HDL Ratio 2.54 mg/dL (1.0-5.00); Cholesterol 234 mg/dL (0-200); Globulin 2.4 g/dL (1.3-4.6); Glomerular Filtration Rate 156.1 mL/min (90-130); Glucose 76 mg/dL (65-115); HDL Cholesterol 92 mg/dL (60-100); LDL Cholesterol Calculated 128 mg/dL (50-129); Magnesium 1.9 mg/dL (1.7-2.3); Osmolality Calculated 271 mOsm/kg (285-295); Sodium 132 mmol/L (136-145); Total Bilirubin 0.9 mg/dL (0.15-1.2); Total Protein 6.2 g/dL (6.6-8.7); Triglycerides 68 mg/dL (0-150); VLDL Cholestrol Calculation 14 mg/dL (0-30)
[2022-11-30 05:37] LABS: Anion Gap 22.5 (5-19); Potassium 3.5 mmol/L (3.5-5.1)
[2022-11-30 05:55] LABS: Urine Creatinine 128 mg/dL (39-259)
[2022-11-30] MEDS: sucralfate 1 gm/10 mL Oral Liq UDC PO ×4 (06:40→21:49)
[2022-11-30] MEDS: heparin 5,000 unit/mL INJ 1 mL 5000 UNIT SUBCUT ×3 (06:40→23:17)
--- NOTE | 2022-11-30 08:27 | PC.PHAR ---
pt states he takes care of his own medications-pt states he takes lipitor 40mg prn ext med history shows last filled 07/16/22 30d/s-pt states he takes clonidine 0.1mg hs prn ext med history shows last filled 08/30/22 30d/s 0.1mg bid-pt states takes metoprolol tartrate 100mg qam-ext med history shows last filled 10/05/22 10d/s 100mg bid-09/20 100mg bid 15d/s-08/16 30d/s 100mg bid-notes are made in the pharmacy comments
[2022-11-30] MEDS: pantoprazole 40 mg SDV IVP (08:33)
[2022-11-30] MEDS: folic acid 1 mg Tablet PO (08:34)
[2022-11-30] MEDS: multivitamin therapeutic Tablet 1 TAB PO (08:34)
[2022-11-30] MEDS: metoprolol tartrate 50 mg Tablet PO ×2 (08:35→17:07)
[2022-11-30] MEDS: thiamine 100 mg Tablet PO (08:35)
[2022-11-30] MEDS: cloNIDine 0.1 mg Tablet PO ×2 (08:35→17:06)
[2022-11-30] MEDS: dextrose 5%-sod chloride 0.9% 1,000 ML 75 ML IV ×2 (11:02→23:22)
--- NOTE | 2022-11-30 14:41 | P.PN_ITS ---
Subjective Subjective: Overnight labs and H&P reviewed. States that his nausea and pain is currently under control. He is currently tolerating a clear liquid diet. Does not wish to advance just yet as really does not have any appetite. Vitals/I&O/Wt Last Vital Signs Temp 98.0 F 11/30/22 12:00 Pulse 81 11/30/22 12:00 Resp 16 11/30/22 12:00 BP 116/71 11/30/22 12:00 Pulse Ox 91 11/30/22 12:00 O2 Del Method 11/30/22 12:00 11/29/22 11/30/22 11/30/22 22:59 06:59 14:59 Intake Total 1999 2691.2 / 4691.2 1576.25 / 1576.25 Balance 1999 2691.2 / 4691.2 1576.25 / 1576.25 Weight last 48 hrs Weight 107.184 kg Weight 86.183 kg Physical Exam Narrative: General: No acute distress, AO x3 HEENT: PERRLA, pupils bilaterally equal and reactive, pallors not present Chest: Normal vesicular breath sounds, no added sounds, equal good air entry bilaterally CVS: S1-S2 regular, no murmurs, no tachycardia, no gallops, no rubs Abdomen: Soft, mild tenderness to palpation in the epigastric region., no organomegaly, bowel sounds present Neuro: No focal deficits, no facial deformity, AO x3, power 5/5 in all limbs Data 11/30/22 04:14 11/30/22 04:14 A&P Assessment and plan (1) Acute on chronic pancreatitis: Appreciate CT abdomen pelvis results. Negative for gallstones. No evidence of complications. Triglycerides within normal limits. Most likely alcohol induced pancreatitis. Conservative treatment. Tolerating clear liquid diet, we will continue the same. IV hydration with D5 NS at 75 cc/h after banana bag infusion. Dilaudid 0.4 mg IV every 6 hourly. Protonix 40 mg IV daily, Zofran as needed for vomiting and nausea. (2) Alcohol withdrawal: States has been sober till very recently for last few months. Alcohol levels not detected currently [facility] protocol Ativan. Seizure and fall precautions. (3) Hyponatremia: Most likely in setting of poor oral intake and multiple episodes of vomiting. Fluid as above. Monitor BMP daily for now. Check urine lites. (4) Transaminitis: (5) High anion gap metabolic acidosis: Most likely in setting of starvation ketosis. Improving with hydration, anticipate continued improvement with hydration. (6) Alcohol abuse: (7) Hypertension: Goal blood pressure less than 140/90 mmHg. Continue home medications including clonidine 0.1 mg twice daily, lisinopril 40 mg oral daily, metoprolol 100 mg daily. (8) Fall: Unknown etiology. Could be mechanical. CT head appreciated for no acute abnormality. Normal C-spine x-ray Fall precautions. Plan Continue other chronic home medications including Carafate, trazodone. Hold off on starting statins for now. Full code. Clear liquid diet. Protonix OPD prophylaxis Heparin for DVT prophylaxis. Ad[facility] to [facility]. Attestations Medical Necessity Statement*: Continued admission for IV fluids, pain management, management of acute pancreatitis. Coding Level of Care Code Acute Code for [facility] Fwd Diagnoses Acute on chronic pancreatitis K85.90; K86.1 Alcohol withdrawal F10.939 Hyponatremia E87.1 Transaminitis R74.01 High anion gap metabolic acidosis E87.29 Alcohol abuse F10.10 Hypertension I10 Fall W19.XXXA
--- NOTE | 2022-11-30 21:12 | USCV_ITS ---
Buddy Cowan Age: 32 Gender: M : 1990 Exam Date: 11/30/2022 07:11 Ordering Phys: Tony Reagan MD Technologist: THOMAS Exam Location: [facility] [place] Indication: SHORTNESS OF BREATH BP: 137 / 89 HR: 94 Rhythm: Sinus Technical Quality: Adequate MEASUREMENTS (Male / Female) Normal Values 2D ECHO LVOT Diameter 2.0 cm LV Ejection Fraction MOD 2C 70.4 % LV Ejection Fraction 2C AL 71.4 % LA Diameter 3.2 cm LA Width 2.9 cm LA Height 4.0 cm RA Width 2.8 cm RA Height 3.9 cm Aorta at Sinotubular Diameter 2.8 cm M-MODE Aortic Annulus Diameter 3.3 cm LA Ao Ratio MM 1.0 MV E Point Septal Separation 0.8 cm DOPPLER AV Peak Velocity 130.0 cm/s LVOT Peak Velocity 116.0 cm/s AV Area Cont Eq vti 3.6 cm squared AV Area Cont Eq pk 2.8 cm squared MV Peak Velocity 101.0 cm/s MV Area PHT 4.2 cm squared Mitral E to A Ratio 1.5 MV E' Velocity 55.0 cm/s Mitral E to MV E' Ratio 5.5 Mitral E to LV E' Lateral Ratio 4.7 Mitral E to LV E' Septal Ratio 6.6 TR Peak Velocity 223.3 cm/s TR Peak Gradient 19.9 mmHg TR Mean Velocity 228.7 cm/s TR Mean Gradient 21.2 mmHg TR Velocity Time Integral 74.3 cm TV Peak E Velocity 60.0 cm/s Right Atrial Pressure 8.0 mmHg Pulmonary Artery Systolic Pressu 27.9 mmHg PV Peak Velocity 97.0 cm/s RV Acceleration Time 0.1 s RV Ejection Time 0.2 s RV AcT/ET 0.5 FINDINGS Left Ventricle Normal left ventricular size and systolic function, EF 70 %. No regional wall motion abnormalities. Right Ventricle Normal right ventricular size and systolic function. Right Atrium Normal right atrial size. Left Atrium Normal left atrial size. Mitral Valve Trace mitral valve regurgitation. Aortic Valve No gross abnormalities noted Tricuspid Valve Mild tricuspid valve regurgitation. Pulmonic Valve No gross abnormalities noted Pericardium Normal pericardium without effusion. Aorta Normal aortic annulus size. IVC Inferior vena cava not visualized. CONCLUSIONS Normal left ventricular size and systolic function, EF 70 %. No regional wall motion abnormalities. Mild tricuspid valve regurgitation. Trace mitral valve regurgitation. Normal cardiac chamber sizes. There is no pericardial effusion. There are no intracardiac masses. No similar previous studies are available for comparison Dr Saundra Martinez MD [facility] (Electronically Signed) Final Date: 30 November 2022 18:18 S
[2022-11-30] MEDS: trazodone 50 mg Tablet 25 MG PO (21:45)
[2022-12-01] VITALS (15 sets, daily range): BP systolic 125–169; BP diastolic 78–108; PULSE 59–84; RESP 15–20; TEMP 36.7–37.3; O2SAT 95–98
[2022-12-01] MEDS: ondansetron 2 mg/ML SDV 2 mL 4 MG IVP ×3 (00:44→16:18)
[2022-12-01] MEDS: lactulose oral liq 20 gm/30 mL UDC 10 GM PO (02:00)
[2022-12-01] MEDS: LORazepam 2 mg/mL INJ 1 mL IVP ×3 (03:14→11:33)
[2022-12-01] MEDS: HYDROmorphone 1 mg/mL INJ 1 mL 0.4 MG IVP ×4 (05:53→21:56)
[2022-12-01] MEDS: heparin 5,000 unit/mL INJ 1 mL 5000 UNIT SUBCUT ×3 (06:00→23:14)
[2022-12-01] MEDS: sucralfate 1 gm/10 mL Oral Liq UDC PO ×4 (06:00→21:22)
[2022-12-01] MEDS: cloNIDine 0.1 mg Tablet PO ×2 (08:52→17:02)
[2022-12-01] MEDS: multivitamin therapeutic Tablet 1 TAB PO (08:53)
[2022-12-01] MEDS: folic acid 1 mg Tablet PO (08:53)
[2022-12-01] MEDS: thiamine 100 mg Tablet PO (08:53)
[2022-12-01] MEDS: metoprolol tartrate 50 mg Tablet PO ×2 (08:53→17:02)
[2022-12-01] MEDS: pantoprazole 40 mg SDV IVP ×2 (08:57→20:24)
--- NOTE | 2022-12-01 09:44 | XRR_ITS ---
PROCEDURE INFORMATION: Exam: XR Abdomen Exam date and time: 12/01/2022 9:57 AM Age: 32 years old Clinical indication: Bloating; Additional info: Evalute for ileus TECHNIQUE: Imaging protocol: Radiologic exam of the abdomen. Views: Frontal supine view of the abdomen. 1 View. COMPARISON: CT abdomen pelvis w con* [id number] 11/29/2022 6:49 PM FINDINGS: Gastrointestinal tract: Single mildly dilated loop of small bowel is seen in the central abdomen, which could reflect a mild localized ileus. Bones/joints: Unremarkable. XR/XR abdomen 1V* [id number] IMPRESSION: Single mildly dilated loop of small bowel is seen in the central abdomen, which could reflect a mild localized ileus.
--- NOTE | 2022-12-01 09:48 | P.PN_ITS ---
Subjective Subjective: Complains of persistent nausea and vomiting this morning. Not adequately relieved with Zofran. Patient is concerned that he is developing an ileus. Last bowel movement was yesterday. Unable to keep the clears down. Medications: Reviewed: Yes Vitals/I&O/Wt Last Vital Signs Temp 98.2 F 12/01/22 07:47 Pulse 84 12/01/22 07:47 Resp 20 H 12/01/22 08:53 BP 133/83 12/01/22 08:52 Pulse Ox 96 12/01/22 07:47 O2 Del Method 12/01/22 07:47 11/30/22 12/01/22 12/01/22 22:59 06:59 14:59 Intake Total 240 / 1816.25 1165 / 2981.25 Balance 240 / 1816.25 1165 / 2981.25 Weight last 48 hrs Weight 107.501 kg Weight 107.184 kg Weight 86.183 kg Physical Exam Narrative: General: No acute distress, AO x3 HEENT: PERRLA, pupils bilaterally equal and reactive, pallors not present Chest: Normal vesicular breath sounds, no added sounds, equal good air entry bilaterally CVS: S1-S2 regular, no murmurs, no tachycardia, no gallops, no rubs Abdomen: Soft, mild tenderness to palpation in the epigastric region., no organomegaly, bowel sounds present Neuro: No focal deficits, no facial deformity, AO x3, power 5/5 in all limbs Data 11/30/22 04:14 11/30/22 04:14 A&P Assessment and plan (1) Acute on chronic pancreatitis: CT abdomen and pelvis shows pancreatitis without any acute complications. Suspect etiology to be alcohol induced pancreatitis. Triglycerides normal at 68. Conservative treatment. He was tolerating clear liquid diet yesterday, however since this morning he has had increased nausea and vomiting. We will make him n.p.o. Increase IV hydration with D5 normal saline at 125 cc an hour. Nausea is not adequately controlled with Zofran 4 mg every 8 hours. We will add Reglan 5 mg IV 6-hour as needed and add a scopolamine patch. Dilaudid 0.4 mg IV every 6 hourly for pain control Protonix 40 mg IV daily We will check x-ray of abdomen to evaluate for possibly developing ileus (2) Alcohol withdrawal: States has been sober till very recently for last few months. Alcohol levels not detected currently [facility] protocol Ativan. Seizure and fall precautions. (3) Hyponatremia: Most likely from dehydration in setting of poor oral intake and multiple episodes of vomiting. Fluids as above. (4) Transaminitis: improving with hydration (5) High anion gap metabolic acidosis: Most likely in setting of starvation ketosis. Improving with hydration, anticipate continued improvement with hydration. Am labs not yet available (6) Alcohol abuse: (7) Hypertension: Goal blood pressure less than 140/90 mmHg. Currently controlled Continue home medications including clonidine 0.1 mg twice daily, lisinopril 40 mg oral daily, metoprolol 100 mg daily. (8) Fall: Unknown etiology. Could be mechanical. CT head appreciated for no acute abnormality. Normal C-spine x-ray Fall precautions. Plan Continue other chronic home medications including Carafate, trazodone. Hold off on starting statins for now due to transaminitis Full code. NPO today Protonix OPD prophylaxis Heparin for DVT prophylaxis. Attestations Medical Necessity Statement*: Needs continued admission for IV fluids, optimize antiemetic regimen, abdominal x-ray to evaluate for ileus, pending labs Coding Level of Care Code Acute Code for Chg Fwd Moderate MDM includes number and complexity of problems actively addressed during encounter, amount and/or complexity of data reviewed/ordered and described risk of complication, morbidity or mortality of management as documented Diagnoses Acute on chronic pancreatitis K85.90; K86.1 Alcohol withdrawal F10.939 Hyponatremia E87.1 Transaminitis R74.01 High anion gap metabolic acidosis E87.29 Alcohol abuse F10.10 Hypertension I10 Fall W19.XXXA
[2022-12-01] MEDS: scopolamine 1.5 Patch 1 PATCH TRANSDERMA (10:02)
[2022-12-01 10:21] LABS: Basophils % 0.2 %; Eosinophils % 0.6 %; Hematocrit 36.4 % (42.0-52.0); Hemoglobin 12.1 g/dL (11.7-16.6); Lymphocytes # 0.8 10^3/uL (0.8-4.8); Lymphocytes % 17.2 %; Mean Corpuscular HGB Conc 33.2 g/dL (30.0-36.0); Mean Corpuscular Hemoglobin 33.1 pg (28.0-34.0); Mean Corpuscular Volume 99.5 fl (80-94); Mean Platelet Volume 10.5 fL (7.4-10.4); Monocytes # 0.3 10^3/uL (0.2-0.9); Monocytes % 6.9 %; Neutrophils # 3.49 10^3/uL (1.8-7.7); Neutrophils % 74.9 %; Nucleated Red Blood Cells % 0 %; Platelet Count 78 10^3/cmm (130-400); Red Blood Count 3.66 10^6/uL (4.1-5.3); Red Cell Distribution Width 11.4 % (12.1-15.1); White Blood Count 4.7 10^3/uL (4.0-10.0)
[2022-12-01 10:38] LABS: Alanine Aminotransferase 83 U/L (0-41); Albumin Level 3.6 g/dL (3.5-5.2); Alkaline Phosphatase 71 U/L (40-130); Anion Gap 17.2 (5-19); Aspartate Amino Transferase 92 U/L (0-40); Blood Urea Nitrogen 4 mg/dL (6-20); Calcium 8.4 mg/dL (8.5-10.5); Carbon Dioxide 22 mmol/L (22-29); Chloride 101 mmol/L (98-107); Globulin 2.3 g/dL (1.3-4.6); Glomerular Filtration Rate 156.1 mL/min (90-130); Glucose 88 mg/dL (65-115); Magnesium 1.6 mg/dL (1.7-2.3); Osmolality Calculated 280 mOsm/kg (285-295); Potassium 3.2 mmol/L (3.5-5.1); Sodium 137 mmol/L (136-145); Total Bilirubin 0.7 mg/dL (0.15-1.2); Total Protein 5.9 g/dL (6.6-8.7)
[2022-12-01] MEDS: metoclopramide 5 mg/mL SDV 2 mL IVP (10:55)
[2022-12-01 11:10] LABS: Slide Review Slide Review Perform
[2022-12-01] MEDS: dextrose 5%-sod chloride 0.9% 1,000 ML 75 ML IV (13:12)
--- NOTE | 2022-12-01 16:11 | ECG_ITS ---
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 Measurements Intervals Haiku Rate: 67 P: 49 CO: 224 QRS: 56 QRSD: 85 T: 33 QT: 378 QTc: 400 Interpretive Statements SINUS RHYTHM WITH FIRST DEGREE AV BLOCK Compared to ECG 09/21/2022 19:32:47 First degree AV block now present T-wave abnormality no longer present Electronically Signed On 12-01-2022 22:23:49 [employer] by Saundra Martinez M.D. [id number]
--- NOTE | 2022-12-01 18:01 | XRR_ITS ---
PROCEDURE INFORMATION: Exam: XR Chest Exam date and time: 12/01/2022 6:07 PM Age: 32 years old Clinical indication: Device placement; Patient HX: Ng tube placement TECHNIQUE: Imaging protocol: Radiologic exam of the chest. Views: 1 view. COMPARISON: CR XR chest 1V portable [id number] 09/16/2022 3:54 AM FINDINGS: Tubes, catheters and devices: Enteric tube to below the diaphragm over the gastric bubble. Lungs: Unremarkable. No consolidation. Pleural spaces: Unremarkable. No pleural effusion. No pneumothorax. Heart/Mediastinum: Unremarkable. No cardiomegaly. Bones/joints: Unremarkable. XR/XR chest 1V portable [id number] IMPRESSION: Enteric tube to below the diaphragm over the gastric bubble.
[2022-12-01] MEDS: trazodone 50 mg Tablet 25 MG PO (21:22)
--- NOTE | 2022-12-01 23:10 | PC.NURSE ---
This nurse along with the charge nurse checked NG tube placement by checking for air auscultation with a 60cc syringe. Air was heard and the pt reported this helped with pain.
[2022-12-02] VITALS (9 sets, daily range): BP systolic 141–148; BP diastolic 93–97; PULSE 68–75; RESP 16–20; TEMP 36.6–36.8; O2SAT 95–98
[2022-12-02] MEDS: dextrose 5%-sod chloride 0.9% 1,000 ML 125 ML IV ×2 (02:35→11:53)
--- NOTE | 2022-12-02 03:39 | PC.NURSE ---
This nurse answered the pts call light to find that the NG tube was pulled out by the patient. The patient stated it freaked me out having it in and I sneezed and it came out This nurse has notified the doctor and he is aware of the situation and no new orders were received.
[2022-12-02 05:36] LABS: Basophils % 0.2 %; Eosinophils # 0.1 10^3/uL (0.0-0.8); Hematocrit 35.7 % (42.0-52.0); Hemoglobin 12.2 g/dL (11.7-16.6); Lymphocytes # 1.1 10^3/uL (0.8-4.8); Lymphocytes % 20.4 %; Mean Corpuscular HGB Conc 34.2 g/dL (30.0-36.0); Mean Corpuscular Hemoglobin 33.5 pg (28.0-34.0); Mean Corpuscular Volume 98.1 fl (80-94); Mean Platelet Volume 11.5 fL (7.4-10.4); Monocytes # 0.4 10^3/uL (0.2-0.9); Monocytes % 7.6 %; Neutrophils # 3.63 10^3/uL (1.8-7.7); Neutrophils % 70.6 %; Nucleated Red Blood Cells % 0 %; Platelet Count 74 10^3/cmm (130-400); Red Blood Count 3.64 10^6/uL (4.1-5.3); Red Cell Distribution Width 11.3 % (12.1-15.1); White Blood Count 5.1 10^3/uL (4.0-10.0)
[2022-12-02] MEDS: HYDROmorphone 1 mg/mL INJ 1 mL 0.4 MG IVP (05:49)
[2022-12-02 05:56] LABS: Alanine Aminotransferase 79 U/L (0-41); Albumin Level 3.7 g/dL (3.5-5.2); Alkaline Phosphatase 76 U/L (40-130); Anion Gap 16.8 (5-19); Aspartate Amino Transferase 76 U/L (0-40); Blood Urea Nitrogen 4 mg/dL (6-20); Calcium 8.6 mg/dL (8.5-10.5); Carbon Dioxide 24 mmol/L (22-29); Chloride 98 mmol/L (98-107); Globulin 2.5 g/dL (1.3-4.6); Glomerular Filtration Rate 156.1 mL/min (90-130); Glucose 77 mg/dL (65-115); Osmolality Calculated 278 mOsm/kg (285-295); Sodium 136 mmol/L (136-145); Total Bilirubin 0.7 mg/dL (0.15-1.2); Total Protein 6.2 g/dL (6.6-8.7)
[2022-12-02 06:10] LABS: Potassium 2.8 mmol/L (3.5-5.1)
[2022-12-02] MEDS: heparin 5,000 unit/mL INJ 1 mL 5000 UNIT SUBCUT (06:27)
[2022-12-02] MEDS: lidocaine 1% 5 ML in potassium chloride premix 100 ML 26.25 ML IV ×2 (06:43→10:37)
[2022-12-02] MEDS: metoclopramide 5 mg/mL SDV 2 mL IVP (08:27)
[2022-12-02] MEDS: sucralfate 1 gm/10 mL Oral Liq UDC PO ×2 (08:28→11:55)
[2022-12-02] MEDS: cloNIDine 0.1 mg Tablet PO (08:30)
[2022-12-02] MEDS: pantoprazole 40 mg SDV IVP (08:30)
[2022-12-02] MEDS: multivitamin therapeutic Tablet 1 TAB PO (08:30)
[2022-12-02] MEDS: thiamine 100 mg Tablet PO (08:31)
[2022-12-02] MEDS: folic acid 1 mg Tablet PO (08:31)
[2022-12-02] MEDS: metoprolol tartrate 50 mg Tablet PO (08:52)
[2022-12-02] MEDS: oxyCODONE 5 mg IR Tab/Cap PO (10:49)
--- NOTE | 2022-12-02 11:51 | P.PN_ITS ---
Subjective Subjective: Continues to have abdominal pain. Reports that he is having a lot of bile come up, but no emesis. Says that Dilaudid only works for about 30 minutes to ease his pain. Denies blood in stool or in emesis. Is requesting to advance his diet, so that he can have some fluids. Medications: Reviewed: Yes Vitals/I&O/Wt Last Vital Signs Temp 98.3 F 12/02/22 11:26 Pulse 75 12/02/22 11:26 Resp 16 12/02/22 11:26 BP 148/96 12/02/22 11:26 Pulse Ox 97 12/02/22 11:26 O2 Del Method 12/02/22 11:26 12/01/22 12/02/22 12/02/22 22:59 06:59 14:59 Intake Total 999 105 / 105 Balance 999 105 / 105 Weight last 48 hrs Weight 235 lb 3.2 oz Weight 237 lb Physical Exam Narrative: General: Cooperative patient in no apparent distress. Well developed. HEENT: Normocephalic, Atraumatic. External ears normal. Nasal passages patent without drainage. MMM. Heart: RRR. Resp: LCTA. No respiratory distress, no use of accessory muscles. Abd: Soft, Epigastric tenderness noted. Abd Non-distended. Bowel sounds normal. Extremities: No edema. Neuro: No focal motor or sensory deficits. Skin: No rash or lesions on exposed areas. Data 12/02/22 04:18 12/02/22 04:18 A&P Assessment and plan (1) Acute on chronic pancreatitis: (2) Alcohol withdrawal: (3) Hyponatremia: (4) Transaminitis: (5) High anion gap metabolic acidosis: (6) Alcohol abuse: (7) Hypertension: (8) Hypokalemia: (9) Hypomagnesemia: Plan 32 y.o admitted with acute pancreatitis. Continue close inpatient monitoring. [facility] protocol Ativan. Seizure and fall precautions. CT abdomen and pelvis shows pancreatitis without any acute complications. Continue IVF's. Advance diet as tolerated. Will give pain medication PO and see how he tolerates for now. Suspect etiology to be alcohol induced pancreatitis given his history of recent EtOH use. Continue Zofran and Reglan. Continue Potassium and magnesium replacment. Dilaudid 0.4 mg IV every 6 hourly for pain control. Will add oxycodone q6 for pain. Protonix 40 mg IV daily If tolerates oral pain meds and advancing diet through today, can consider discharge tomorrow. Continue home medications for other chronic conditions. Code Status: Full IVF: D5NS DVT PPx: Heparin GI PPx: Protonix Diet: ADAT Disposition: Med/Surg. Discharge plan: home Attestations Medical Necessity Statement*: Needs continued admission for IV fluids, optimize antiemetic regimen, pain control. Coding Level of Care Code Acute Code for Chg Fwd Moderate MDM includes number and complexity of problems actively addressed during encounter, amount and/or complexity of data reviewed/ordered and described risk of complication, morbidity or mortality of management as documented Diagnoses Acute on chronic pancreatitis K85.90; K86.1 Alcohol withdrawal F10.939 Hyponatremia E87.1 Transaminitis R74.01 High anion gap metabolic acidosis E87.29 Alcohol abuse F10.10 Hypertension I10 Hypokalemia E87.6 Hypomagnesemia E83.42
--- NOTE | 2022-12-02 14:33 | PC.NURSE ---
[address] Hilliard notified of patient wanting to leave AMA. AMA paperwork signed at 1423. Patient left unit at 1432. Patient in stable condition
--- NOTE | 2022-12-03 17:15 | PM.MISC ---
Miscellaneous Note Purpose of Documentation: Patient left the hospital today AGAINST MEDICAL ADVICE. It was recommended that he stay and receive appropriate treatment prior to leaving, but patient states that he is adamant he is not staying. He did sign AMA forms prior to departing the hospital.
== END 2022-12-02 14:32 | disposition left against medical advice (07) | DRG 439 ==
LOC: ER 21:02 → MEDSURG 23:10
PROVIDERS: Student in an Organized Health Care Education/Training Program; Admitting Provider Student in an Organized Health Care Education/Training Program; Emergency Provider Family Medicine; PCP Family Medicine Adult Medicine; Visit Provider Family Medicine
DX: K85.20 Alcohol induced acute pancreatitis without necrosis or infection (principal); E87.1 Hypo-osmolality and hyponatremia; F10.139 Alcohol abuse with withdrawal, unspecified; E87.20 Acidosis, unspecified; F10.10 Alcohol abuse, uncomplicated; K86.0 Alcohol-induced chronic pancreatitis; I10 Essential (primary) hypertension; E87.6 Hypokalemia; E83.42 Hypomagnesemia; F12.90 Cannabis use, unspecified, uncomplicated; F43.10 Post-traumatic stress disorder, unspecified; F32.A Depression, unspecified; F41.1 Generalized anxiety disorder; K21.9 Gastro-esophageal reflux disease without esophagitis; E78.5 Hyperlipidemia, unspecified; Z53.29 Procedure and treatment not carried out because of patient's decision for other reasons; W10.9XXA Fall (on) (from) unspecified stairs and steps, initial encounter
CPT/HCPCS: 36415; 36416; 70450; 71045; 72020; 74018; 74177; 80053; 80061; 80306; 80307; 81001; 82436; 82570; 82607; 82746; 82962; 83036; 83540; 83550; 83605; 83690; 83735; 84133; 84300; 84443; 84478; 85025; 93005; 93306; 96365; 96372; 96375; 96376; 99285; C9113; J1170; J1644; J2060; J2270; J2405; J2765; J3010; J3411; J3480; J3490; J7030; J7042; Q9967

== ENCOUNTER 2022-12-22 07:05 | Inpatient (IN) | payer MEDICAID, SELFPAY ==
[2022-12-22] VITALS (56 sets, daily range): BP systolic 90–164; BP diastolic 62–117; PULSE 109–154; RESP 15–34; TEMP 36.7–37.2; O2SAT 91–99; BMI 30.5
--- NOTE | 2022-12-22 07:22 | XR_ITS ---
WS: [id number] XR chest 1V portable [id number] REASON FOR EXAM: chest pain FINDINGS: Thoracic aorta and mediastinum are within normal limits. Normal heart size. Minimal calcified granulomatous disease bilaterally. No active pulmonary parenchymal or pleural disease. Bony thorax is intact without significant focal abnormality. XR/XR chest 1V portable [id number] IMPRESSION: No acute chest abnormality.
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
--- NOTE | 2022-12-22 07:32 | ECG_ITS ---
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
[2022-12-22 07:36] LABS: Basophils % 0.5 %; Hematocrit 47.2 % (42.0-52.0); Lymphocytes # 3.1 10^3/uL (0.8-4.8); Lymphocytes % 35.3 %; Mean Corpuscular HGB Conc 33.9 g/dL (30.0-36.0); Mean Corpuscular Hemoglobin 32.6 pg (28.0-34.0); Mean Corpuscular Volume 96.1 fl (80-94); Mean Platelet Volume 9.1 fL (7.4-10.4); Monocytes # 0.8 10^3/uL (0.2-0.9); Monocytes % 8.9 %; Neutrophils # 4.85 10^3/uL (1.8-7.7); Nucleated Red Blood Cells % 0 %; Platelet Count 225 10^3/cmm (130-400); Red Blood Count 4.91 10^6/uL (4.1-5.3); Red Cell Distribution Width 12.5 % (12.1-15.1); White Blood Count 8.8 10^3/uL (4.0-10.0)
[2022-12-22] MEDS: sodium chloride 0.9% 1,000 ML 999 ML IV (07:39)
[2022-12-22] MEDS: morphine 4 mg/mL SDV 1 mL IVP ×4 (07:41→23:05)
[2022-12-22] MEDS: ondansetron 2 mg/ML SDV 2 mL 4 MG IVP ×2 (07:41→14:29)
[2022-12-22] MEDS: LORazepam 2 mg/mL INJ 1 mL 1 MG IVP (07:41)
[2022-12-22 07:52] LABS: Alanine Aminotransferase 95 U/L (0-41); Albumin Level 4.4 g/dL (3.5-5.2); Alkaline Phosphatase 103 U/L (40-130); Anion Gap 34.8 (5-19); Aspartate Amino Transferase 79 U/L (0-40); Blood Urea Nitrogen 13 mg/dL (6-20); Calcium 9.2 mg/dL (8.5-10.5); Carbon Dioxide 14 mmol/L (22-29); Chloride 94 mmol/L (98-107); Globulin 3.1 g/dL (1.3-4.6); Glomerular Filtration Rate 130.7 mL/min (90-130); Glucose 101 mg/dL (65-115); Osmolality Calculated 288 mOsm/kg (285-295); Potassium 3.8 mmol/L (3.5-5.1); Sodium 139 mmol/L (136-145); Total Bilirubin 0.6 mg/dL (0.15-1.2); Total Protein 7.5 g/dL (6.6-8.7)
[2022-12-22 07:59] LABS: Lipase 1141 U/L (13-60)
--- NOTE | 2022-12-22 08:05 | CT_ITS ---
WS: [id number] CT ABDOMEN AND PELVIS NONCONTRAST HISTORY: Abdominal pain/pancreatitis TECHNIQUE: Imaging performed through the abdomen and pelvis. Coronal and sagittal reformats are submi tted. All CT scans at [facility] use at least one of these dose optimization techniques: auto mated exposure control; mA and/or kV adjustment per patient size (includes targeted exams where dose is matched to clinical indication); or iterative reconstruction. DLP: 804.53 mGy.cm COMPARISON: 11/29/2022 Lower thorax: Lung bases are clear. Visualized heart is normal. No hiatal hernia. Liver: Markedly enlarged liver with low attenuation throughout. Diffuse hepatic steatosis. Hyperdense mass in the inferior RIGHT lobe of the liver measures 2.3 x 1.6 cm and has been previously described . Most likely a hemangioma. Portal vein is patent. Gallbladder: Normal gallbladder. Pancreas: Progression of peripancreatic edema and stranding since the prior study. Diffuse pancreatic edema. The duct is not dilated. No focal collection or abscess. No pseudocyst identified. Mild exten jessy of the inflammation into the duodenal C-loop. Spleen: Normal. Adrenal glands: Normal. No mass. Right kidney: Normal size kidney with no mass or hydronephrosis. Left kidney: Normal size kidney with no mass or hydronephrosis. Aorta: Normal abdominal aorta, no aneurysm or atherosclerosis. No free fluid, intraperitoneal air or significant lymphadenopathy. GI tract: Normal noncontrast imaging of the stomach, small bowel and colon. No obstruction or wall th ickening. Normal appendix. Abdominal wall: Negative. No hernia. Pelvis: Normal. Osseous structures: There are several lytic lesions within the iliac wings which need to be further i nvestigated for malignancy. These were not definitely present on prior studies from [address]/CT abdomen pelvis wo con [id number] IMPRESSION: 1. Mild diffuse acute pancreatitis. No pseudocyst or abscess. 2. Severe hepatic steatosis with hepatomegaly. 3. Hemangioma RIGHT lobe of the liver. 4. Numerous lytic bone lesions involving the salome. Recommend follow-up bone sc an imaging to exclude malignancy.
[2022-12-22] MEDS: lidocaine 2% viscous 15 ML, aluminum-mag hydrox-simethicon 30 ML, sucralfate oral liq 1 GM PO ×2 (08:08→21:26)
[2022-12-22] MEDS: HYDROmorphone 1 mg/mL INJ 1 mL IVP ×2 (08:08→09:46)
[2022-12-22] MEDS: LORazepam 2 mg/mL INJ 1 mL IVP ×5 (09:53→23:07)
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
[2022-12-22] MEDS: folic acid 1 mg Tablet PO (11:08)
[2022-12-22] MEDS: multivitamin therapeutic Tablet 1 TAB PO (11:08)
[2022-12-22] MEDS: enoxaparin 40 mg/0.4 mL Syringe SUBCUT (11:08)
[2022-12-22] MEDS: sodium chloride 0.9% 1,000 ML 125 ML IV ×2 (11:09→19:31)
[2022-12-22] MEDS: metoprolol tartrate 1 mg/1 mL SDV 5 mL 5 MG IVP ×3 (12:32→22:39)
[2022-12-22] MEDS: metoclopramide 5 mg/mL SDV 2 mL 10 MG IVP ×2 (12:32→20:38)
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
[2022-12-22] MEDS: HYDROmorphone 1 mg/mL INJ 1 mL 0.4 MG IVP (15:35)
--- NOTE | 2022-12-22 15:46 | PC.NURSE ---
Patient HR noted to be in 140s-150s, see documented vital signs. This nurse notified Dr. Fields, verbal orders to give 4mg IVP ativan and physician explained to this nurse that this is alcohol withdrawal and asked if I was giving the PRN medications per protocol. See MAR for administered PRN medications.
--- NOTE | 2022-12-22 17:57 | ECG_ITS ---
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
--- NOTE | 2022-12-22 18:07 | PC.NURSE ---
Patient HR persistently high- 140s to 150s- see vitals signs as documented, with complains of continued 10/10 pain in abd and chest. Dr. Fields notified again, reported to bedside to assess the patient. Verbal orders to get an EKG stat and orders for PRN IVP 5mg Metoprolol.
[2022-12-22 19:05] LABS: Troponin(5th) Baseline 6 ng/L (0-15)
[2022-12-22] MEDS: HYDROmorphone 1 mg/mL INJ 1 mL 0.5 MG IVP (19:39)
--- NOTE | 2022-12-22 20:04 | ECG_ITS ---
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
[2022-12-22 20:55] LABS: Troponin 5 2HR Delta 0 ABS# (0-10)
[2022-12-22 23:01] LABS: Add Urine Microscopic? YES; Bilirubin Urine Neg (Negative); Blood Urine Neg (Negative); Glucose Urine UA Norm (Normal); Ketones Urine 2+ (Negative); Leukocyte Esterase Urine Negative (Negative); Nitrate Urine Negative (Negative); Protein Urine Trace (Negative); Urine Appearance Clear (CLEAR); Urine Color Yellow (Yellow); Urobilinogen Urine Norm (Negative); pH Urine 5 (5-7)
[2022-12-22 23:04] LABS: RBC Urine 0-4 /hpf (0-2)
[2022-12-22 23:07] LABS: Bacteria Urine 1+ /hpf
[2022-12-22 23:08] LABS: WBC Urine 0-4 /hpf (0-5)
[2022-12-23] VITALS (33 sets, daily range): BP systolic 126–165; BP diastolic 89–112; PULSE 90–136; RESP 12–22; TEMP 36.9–37.7; O2SAT 92–99; BMI 29.4
[2022-12-23 00:45] LABS: Basophils % 0.5 %; Hematocrit 41.6 % (42.0-52.0); Hemoglobin 13.9 g/dL (11.7-16.6); Lymphocytes # 0.7 10^3/uL (0.8-4.8); Lymphocytes % 17.4 %; Mean Corpuscular HGB Conc 33.4 g/dL (30.0-36.0); Mean Corpuscular Hemoglobin 32.8 pg (28.0-34.0); Mean Corpuscular Volume 98.1 fl (80-94); Mean Platelet Volume 9.3 fL (7.4-10.4); Monocytes % 24.4 %; Neutrophils # 2.39 10^3/uL (1.8-7.7); Neutrophils % 57.7 %; Nucleated Red Blood Cells % 0 %; Platelet Count 133 10^3/cmm (130-400); Red Blood Count 4.24 10^6/uL (4.1-5.3); Red Cell Distribution Width 12.4 % (12.1-15.1); White Blood Count 4.1 10^3/uL (4.0-10.0)
[2022-12-23 00:55] LABS: Alanine Aminotransferase 64 U/L (0-41); Albumin Level 3.7 g/dL (3.5-5.2); Alkaline Phosphatase 85 U/L (40-130); Aspartate Amino Transferase 49 U/L (0-40); Blood Urea Nitrogen 13 mg/dL (6-20); Calcium 8.3 mg/dL (8.5-10.5); Carbon Dioxide 24 mmol/L (22-29); Chloride 99 mmol/L (98-107); Globulin 2.7 g/dL (1.3-4.6); Glomerular Filtration Rate 156.1 mL/min (90-130); Glucose 115 mg/dL (65-115); Magnesium 1.9 mg/dL (1.7-2.3); Osmolality Calculated 285 mOsm/kg (285-295); Phosphorus 2.4 mg/dL (2.5-4.5); Sodium 137 mmol/L (136-145); Total Bilirubin 1.1 mg/dL (0.15-1.2); Total Protein 6.4 g/dL (6.6-8.7)
[2022-12-23 01:24] LABS: Troponin 5 6HR Delta 0 ng/L (0-12)
[2022-12-23] MEDS: ondansetron 2 mg/ML SDV 2 mL 4 MG IVP (01:26)
--- NOTE | 2022-12-23 01:56 | ECG_ITS ---
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
[2022-12-23] MEDS: metoclopramide 5 mg/mL SDV 2 mL 10 MG IVP (02:34)
[2022-12-23] MEDS: bisacodyl 10 mg Supp PR (02:36)
[2022-12-23] MEDS: sodium chloride 0.9% 1,000 ML 125 ML IV (02:40)
[2022-12-23] MEDS: morphine 4 mg/mL SDV 1 mL IVP (03:39)
[2022-12-23] MEDS: LORazepam 2 mg/mL INJ 1 mL IVP (03:40)
[2022-12-23] MEDS: metoprolol tartrate 50 mg Tablet 100 MG PO (06:00)
[2022-12-23] MEDS: lisinopril 20 mg Tablet 40 MG PO (06:00)
[2022-12-23] MEDS: multivitamin therapeutic Tablet 1 TAB PO (08:34)
[2022-12-23] MEDS: folic acid 1 mg Tablet PO (08:34)
[2022-12-23] MEDS: pantoprazole 40 mg SDV IVP (08:34)
[2022-12-23] MEDS: HYDROmorphone 1 mg/mL INJ 1 mL 0.5 MG IVP (08:40)
--- NOTE | 2022-12-23 10:40 | PC.NURSE ---
Patient ambulating in room, requesting his IV to be removed as Dr. Fields was to place discharge orders. Patient educated on discharge process.
--- NOTE | 2022-12-23 11:10 | PC.NURSE ---
IV removed, extensive education given to patient on Pancreatitis, Alcohol abuse/ Withdraw and importance of following providers instructions. Patient exhibited dismissive behaviour. Education provided on new prescription, Zofran. Patient belongings placed in patients black bag including electronic device. Patient had no questions on discharge information provided. Patient brought via wheelchair to personal vehicle with S/O as primary stacker driver, at approximately 1115.
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
== END 2022-12-23 11:15 | disposition home or self-care (01) | DRG 439 ==
LOC: ER 09:48 → ICU 10:56
PROVIDERS: Physician Assistant; Admitting Provider Internal Medicine; Emergency Provider Family Medicine; PCP Family Medicine Adult Medicine; Visit Provider Internal Medicine
DX: K85.20 Alcohol induced acute pancreatitis without necrosis or infection (principal); F10.139 Alcohol abuse with withdrawal, unspecified; F10.10 Alcohol abuse, uncomplicated; K86.0 Alcohol-induced chronic pancreatitis; K29.20 Alcoholic gastritis without bleeding; I10 Essential (primary) hypertension; K76.0 Fatty (change of) liver, not elsewhere classified; D18.09 Hemangioma of other sites; M89.9 Disorder of bone, unspecified; Z79.891 Long term (current) use of opiate analgesic; F43.10 Post-traumatic stress disorder, unspecified; F41.8 Other specified anxiety disorders; E78.5 Hyperlipidemia, unspecified
CPT/HCPCS: 36415; 51702; 51798; 71045; 74176; 80053; 81001; 83690; 83735; 84100; 84484; 85025; 93005; 96372; 96374; 96375; 96376; 99285; C9113; J1170; J1650; J2060; J2270; J2405; J2765; J3411; J3490; J7030

== ENCOUNTER 2022-12-25 10:11 | Emergency (ER) | payer MEDICAID, SELFPAY ==
[2022-12-25 10:17] VITALS: BP 144/98; PULSE 81; RESP 17; TEMP 36.8; O2SAT 97
--- NOTE | 2022-12-25 10:24 | ED_ITS ---
Documented by User: TONY Costa 12/25/22 11:43 HPI - Abdominal Pain General: Chief Complaint: Abdominal Pain Stated Complaint: EPIGASTRIC PAIN Time Seen by Provider: 12/25/22 10:14 History of Present Illness: Patient is a 32-year-old male that presents to the emergency department with epigastric abdominal pain. Patient was discharged/signed out AMA from ICU on 12/22/2022. Patient had previously been admitted with pancreatitis. Patient states he went home and has been taking his pancreatic enzymes. Recently tried to eat and developed more abdominal pain, nausea, vomiting. Associated Symptoms: Reports nausea and vomiting; Denies bloating, chills, constipation, GI cramping, diarrhea, dysuria, fever(s), hematochezia and hematuria Review of Systems 2 General: Reports: 10 or more systems reviewed and unremarkable except in HPI and below Const: Denies: fever(s), chills, change in appetite, change in weight, fatigue or malaise Eyes: Denies: change in vision, eye discomfort, eye discharge or eye redness ENMT: Denies: throat pain, enlarged tonsils, odynophagia, hoarseness, ear or mastoid pain, ear discharge, change in hearing, tinnitus, nasal discharge, nasal congestion, post nasal drip or sinus pain Card: Denies: chest pain, palpitations, irregular heart rhythm, edema, dyspnea on exertion, orthopnea or leg pain with exertion Resp: Denies: dyspnea, productive cough, non-productive cough, wheezing, stridor or chest congestion GI: Reports: abdominal pain, nausea and vomiting; Denies: dysphagia, diarrhea, constipation, bloating, GI cramping or hematochezia : Denies: flank pain, dysuria, urinary frequency, urinary urgency, urinary hesitancy, oliguria or hematuria Musc: Denies: neck pain, back pain, extremity pain, joint pain, joint swelling, joint redness, joint warmth or muscle weakness Skin/Breast: Denies: rash, pruritus, erythema, photosensitivity or new lesions Neuro: Denies: headache(s), numbness in extremities, weakness in extremities, sensory changes, lack of coordination, difficulty walking, frequent falls, dizziness, confusion, Slurred speech present, difficulty communicating thoughts, seizure-like activity or involuntary movements Endo: Denies: polyuria, polydipsia or tired all the time Kris/Lymph: Denies: easy bruising or easy bleeding PFSH ED PFSH: Medical History Abdominal pain Acute posttraumatic stress disorder Alcohol abuse Alcohol withdrawal Anxiety and depression Generalized anxiety disorder with panic attacks GERD (gastroesophageal reflux disease) Hyperlipidemia Hypertension Insomnia Marital/partner relational problem Pancreatitis, acute Psychiatric care Transaminitis Surgical History No pertinent past surgical history Family History Father Hypertension Social History Smoking and tobacco status: never smoked Alcohol intake: current Alcohol intake frequency: 0-2 Drinks per Day Marital status: Number of children: 5 Current occupational status: employed Current gender identity: Male Physical Exam Const: COMMON NORMALS: no acute distress, patient oriented x3 and alert GENERAL APPEARANCE: cooperative ORIENTATION/CONSCIOUSNESS: Yes awake, Yes oriented to person, Yes oriented to place and Yes oriented to time Neck/C-Spine: COMMON NORMALS: full ROM GENERAL: Yes normal visual inspection Lymph: LYMPHATIC: no lymphadenopathy noted Chest: COMMONS NORMALS: normal inspection of the chest Breast/axilla inspection: Yes no chest deformity, asymmetry, normal contours, no nodules, masses, tenderness Resp: COMMON NORMALS: normal respiratory effort, No retractions, No use of accessory muscles and clear to auscultation bilaterally EFFORT & INSPECTION: Yes able to speak in complete sentences and Yes symmetric chest movement AUSCULTATION: clear to auscultation bilaterally Cardio: COMMON NORMALS: regular rate, regular rhythm and Peripheral pulses 2+ throughout RATE: regular rate RHYTHM: regular rhythm PERIPHERAL PULSES: Peripheral pulses 2+ throughout GI: COMMON NORMALS: Normal to inspection, nondistended, normoactive bowel sounds present, Soft to palpation, non-tender and No hepatosplenomegaly present INSPECTION: Yes normal to inspection AUSCULTATION: Yes normoactive bowel sounds PALPATION: Yes Soft to palpation, Yes Tenderness to palpation present (GI) (Epigastric) and Yes No hepatosplenomegaly present RECTAL EXAM: Yes deferred Back/Pelvis: OTHER: Tenderness to back Extremity: COMMON NORMALS: normal to inspection GENERAL: Yes normal exam except as noted Neuro: COMMON NORMALS: patient oriented x3 SENSORIUM/ORIENTATION: Yes alert, Yes oriented to person, Yes oriented to place and Yes oriented to time CRANIAL NERVES: Yes CN normal except as noted Psych: COMMON NORMALS: mental status grossly normal, Normal thought process present, cooperative, activity/motor behavior normal, denies homicidal ideation and denies suicidal ideation THOUGHT PROCESS: Normal thought process present Skin: COMMON NORMALS: no rashes or lesions noted, no wounds and turgor normal GENERAL SKIN EXAM: no rashes or lesions noted and turgor normal Course Vital Signs: Vital signs: Vital Signs Temperature 98.3 F 12/25/22 10:17 Pulse Rate 81 12/25/22 10:17 Respiratory Rate 17 12/25/22 10:17 Blood Pressure 146/92 12/25/22 12:36 Pulse Oximetry 97 12/25/22 10:17 Oxygen Delivery Me thod 12/25/22 10:17 MDM - Abdominal Pain Medical Decision Making Was evaluated in the emergency department due to increase in abdominal pain, nausea, vomiting. Was last seen by Dr. Fields on 12/21/2022 when the patient left the hospital. Here in the emergency department we obtained a CBC, chemistry panel, lipase, alcohol level. Lipaseis down from 1141 to 244. Alcohol is less than 10. While in the emergency department patient was given fentanyl and a liter of saline. She reports very little improvement in his symptoms. I repeated the fentanyl and given another liter of fluid. I consulted with Dr. Sharif and we have elected to order CT abdomen pelvis. Lab Data 12/25/22 10:25 12/25/22 10:25 Labs/Radiology: Radiology Impressions Abdomen/Pelvis CT 12/25/22 11:43 IMPRESSION: 1. Acute pancreatitis, as described above. Correlate with serum amylase and lipase levels. No drainable fluid collection. No necrosis or hemorrhage. 2. Additional findings, as above. Laboratory Results WBC 5.2 10^3/uL (4.0-10.0) 12/25/22 10:25 RBC 4.01 10^6/uL (4.1-5.3) L 12/25/22 10:25 Hgb 13.1 g/dL (11.7-16.6) 12/25/22 10:25 Hct 38.8 % (42.0-52.0) L 12/25/22 10:25 MCV 96.8 fl (80-94) H 12/25/22 10:25 MCH 32.7 pg (28.0-34.0) 12/25/22 10:25 MCHC 33.8 g/dL (30.0-36.0) 12/25/22 10:25 RDW 12.2 % (12.1-15.1) 12/25/22 10:25 Plt Count 139 10^3/cmm (130-400) 12/25/22 10:25 MPV 10.2 fL (7.4-10.4) 12/25/22 10:25 Neut % (Auto) 55.2 % 12/25/22 10:25 Lymph % (Auto) 32.5 % 12/25/22 10:25 Tompkins % (Auto) 10.5 % 12/25/22 10:25 Eos % (Auto) 1.0 % 12/25/22 10:25 Baso % (Auto) 0.8 % 12/25/22 10:25 Neut # (Auto) 2.89 10^3/uL (1.8-7.7) 12/25/22 10:25 Lymph # (Auto) 1.7 10^3/uL (0.8-4.8) 12/25/22 10:25 Tompkins # (Auto) 0.6 10^3/uL (0.2-0.9) 12/25/22 10:25 Eos # (Auto) 0.1 10^3/uL (0.0-0.8) 12/25/22 10:25 Baso # (Auto) 0.0 10^3/uL (0.0-0.1) 12/25/22 10:25 Nucleated RBC % (auto) 0 % 12/25/22 10:25 Nucleated RBCs # 0.0 /100WBC 12/25/22 10:25 Sodium 136 mmol/L (136-145) 12/25/22 10:25 Potassium 3.5 mmol/L (3.5-5.1) 12/25/22 10:25 Chloride 100 mmol/L (98-107) 12/25/22 10:25 Carbon Dioxide 22 mmol/L (22-29) 12/25/22 10:25 Anion Gap 17.5 (5-19) 12/25/22 10:25 BUN 5 mg/dL (6-20) L 12/25/22 10:25 Creatinine 0.5 mg/dL (0.7-1.2) L 12/25/22 10:25 GFR Calculation 192.7 mL/min (90-130) H 12/25/22 10:25 Glucose 81 mg/dL (65-115) 12/25/22 10:25 Calculated Osmolality 278 mOsm/kg (285-295) L 12/25/22 10:25 Calcium 8.6 mg/dL (8.5-10.5) 12/25/22 10:25 Total Bilirubin 1.0 mg/dL (0.15-1.2) 12/25/22 10:25 AST 70 U/L (0-40) H 12/25/22 10:25 ALT 56 U/L (0-41) H 12/25/22 10:25 Alkaline Phosphatase 80 U/L (40-130) 12/25/22 10:25 Total Protein 6.5 g/dL (6.6-8.7) L 12/25/22 10:25 Albumin 3.6 g/dL (3.5-5.2) 12/25/22 10:25 Globulin 2.9 g/dL (1.3-4.6) 12/25/22 10:25 Lipase 244 U/L (13-60) H 12/25/22 10:25 Ethyl Alcohol < 10 mg/dL (0-10) 12/25/22 10:25 Discharge Plan Discharge Patient Disposition: Home Clinical Impression: Pancreatitis Condition: Stable Prescriptions: New hydrocodone-acetaminophen 5-325 mg tablet 1 tab PO Q6H PRN (Reason: pain) Qty: 14 0RF ondansetron 4 mg tablet,disintegrating 4 mg PO Q6H PRN (Reason: nausea and vomiting) Qty: 14 0RF No Action digestive enzymes Tablet 1 tab PO .UP TO TWICE A DAY resveratrol 250 mg capsule 250 - 500 mg PO DAILY PRN (Reason: Inflammation) metoclopramide HCl [Reglan] 10 mg tablet 10 mg PO Q6H PRN (Reason: nausea and vomiting) Qty: 90 1RF omeprazole 40 mg capsule,delayed release(DR/EC) 40 mg PO QAM Qty: 90 0RF lisinopril 40 mg Tablet 40 mg PO QAM metoprolol tartrate 100 mg tablet 100 mg PO QAM clonidine HCl 0.1 mg tablet 0.1 mg PO BEDTIME PRN (Reason: Blood Pressure) Milk of Magnesia 400 mg/5 mL Suspension 30 ml PO BID PRN (Reason: Constipation) ondansetron 4 mg tablet,disintegrating 4 mg PO Q8H PRN (Reason: nausea and vomiting) 10 Days Qty: 20 0RF multivitamin Liquid 15 ml PO DAILY trazodone 50 mg tablet 25 mg PO BEDTIME PRN (Reason: Sleep) Nu-Salt See Rx Instructions .ROUTE .COMPLEX Rx Instructions: prn Discharge Orders: Discharge ED (Routine); Ordered 12/25/22 Ordered By: Yamil Sharif Referrals: Antonio Alvarado MD [Primary Care Provider] - 1-3 days Discharge Diet: Advance as tolerated Discharge Activity: Resume usual activity Patient Instructions: Pancreatitis (ED), Opioid Safety Coding Level of Care 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 Documented by User: Yamil Sharif MD 12/25/22 12:48 HPI - Abdominal Pain General: Chief Complaint: Abdominal Pain Stated Complaint: EPIGASTRIC PAIN Time Seen by Provider: 12/25/22 10:14 PFS ED PFSH: Medical History Abdominal pain Acute posttraumatic stress disorder Alcohol abuse Alcohol withdrawal Anxiety and depression Generalized anxiety disorder with panic attacks GERD (gastroesophageal reflux disease) Hyperlipidemia Hypertension Insomnia Marital/partner relational problem Pancreatitis, acute Psychiatric care Transaminitis Surgical History No pertinent past surgical history Family History Father Hypertension Social History Smoking and tobacco status: never smoked Alcohol intake: current Alcohol intake frequency: 0-2 Drinks per Day Marital status: Number of children: 5 Current occupational status: employed Current gender identity: Male Course Vital Signs: Vital signs: Vital Signs Temperature 98.3 F 12/25/22 10:17 Pulse Rate 81 12/25/22 10:17 Respiratory Rate 17 12/25/22 10:17 Blood Pressure 146/92 12/25/22 12:36 Pulse Oximetry 97 12/25/22 10:17 Oxygen Delivery Me thod 12/25/22 10:17 MDM - Abdominal Pain Medical Decision Making Was evaluated in the emergency department due to increase in abdominal pain, nausea, vomiting. Was last seen by Dr. Fields on 12/21/2022 when the patient left the hospital. Here in the emergency department we obtained a CBC, chemistry panel, lipase, alcohol level. Lipaseis down from 1141 to 244. Alcohol is less than 10. While in the emergency department patient was given fentanyl and a liter of saline. She reports very little improvement in his symptoms. I repeated the fentanyl and given another liter of fluid. I consulted with Dr. Sharif and we have elected to order CT abdomen pelvis. Patient presents here with abdominal pain does have a mild pancreatitis his lipase is much improved from his previous admission his pain is resolved here he is wanting to go home I feel he stable for discharge at this time he is to do a liquid diet we will place him on pain meds he is to follow-up with PCP and return if worsening. Lab Data 12/25/22 10:25 12/25/22 10:25 Labs/Radiology: Radiology Impressions Abdomen/Pelvis CT 12/25/22 11:43 IMPRESSION: 1. Acute pancreatitis, as described above. Correlate with serum amylase and lipase levels. No drainable fluid collection. No necrosis or hemorrhage. 2. Additional findings, as above. Laboratory Results WBC 5.2 10^3/uL (4.0-10.0) 12/25/22 10:25 RBC 4.01 10^6/uL (4.1-5.3) L 12/25/22 10:25 Hgb 13.1 g/dL (11.7-16.6) 12/25/22 10:25 Hct 38.8 % (42.0-52.0) L 12/25/22 10:25 MCV 96.8 fl (80-94) H 12/25/22 10:25 MCH 32.7 pg (28.0-34.0) 12/25/22 10:25 MCHC 33.8 g/dL (30.0-36.0) 12/25/22 10:25 RDW 12.2 % (12.1-15.1) 12/25/22 10:25 Plt Count 139 10^3/cmm (130-400) 12/25/22 10:25 MPV 10.2 fL (7.4-10.4) 12/25/22 10:25 Neut % (Auto) 55.2 % 12/25/22 10:25 Lymph % (Auto) 32.5 % 12/25/22 10:25 Tompkins % (Auto) 10.5 % 12/25/22 10:25 Eos % (Auto) 1.0 % 12/25/22 10:25 Baso % (Auto) 0.8 % 12/25/22 10:25 Neut # (Auto) 2.89 10^3/uL (1.8-7.7) 12/25/22 10:25 Lymph # (Auto) 1.7 10^3/uL (0.8-4.8) 12/25/22 10:25 Tompkins # (Auto) 0.6 10^3/uL (0.2-0.9) 12/25/22 10:25 Eos # (Auto) 0.1 10^3/uL (0.0-0.8) 12/25/22 10:25 Baso # (Auto) 0.0 10^3/uL (0.0-0.1) 12/25/22 10:25 Nucleated RBC % (auto) 0 % 12/25/22 10:25 Nucleated RBCs # 0.0 /100WBC 12/25/22 10:25 Sodium 136 mmol/L (136-145) 12/25/22 10:25 Potassium 3.5 mmol/L (3.5-5.1) 12/25/22 10:25 Chloride 100 mmol/L (98-107) 12/25/22 10:25 Carbon Dioxide 22 mmol/L (22-29) 12/25/22 10:25 Anion Gap 17.5 (5-19) 12/25/22 10:25 BUN 5 mg/dL (6-20) L 12/25/22 10:25 Creatinine 0.5 mg/dL (0.7-1.2) L 12/25/22 10:25 GFR Calculation 192.7 mL/min (90-130) H 12/25/22 10:25 Glucose 81 mg/dL (65-115) 12/25/22 10:25 Calculated Osmolality 278 mOsm/kg (285-295) L 12/25/22 10:25 Calcium 8.6 mg/dL (8.5-10.5) 12/25/22 10:25 Total Bilirubin 1.0 mg/dL (0.15-1.2) 12/25/22 10:25 AST 70 U/L (0-40) H 12/25/22 10:25 ALT 56 U/L (0-41) H 12/25/22 10:25 Alkaline Phosphatase 80 U/L (40-130) 12/25/22 10:25 Total Protein 6.5 g/dL (6.6-8.7) L 12/25/22 10:25 Albumin 3.6 g/dL (3.5-5.2) 12/25/22 10:25 Globulin 2.9 g/dL (1.3-4.6) 12/25/22 10:25 Lipase 244 U/L (13-60) H 12/25/22 10:25 Ethyl Alcohol < 10 mg/dL (0-10) 12/25/22 10:25 Discharge Plan Discharge Patient Disposition: Home Clinical Impression: Pancreatitis Condition: Stable Prescriptions: New hydrocodone-acetaminophen 5-325 mg tablet 1 tab PO Q6H PRN (Reason: pain) Qty: 14 0RF ondansetron 4 mg tablet,disintegrating 4 mg PO Q6H PRN (Reason: nausea and vomiting) Qty: 14 0RF No Action digestive enzymes Tablet 1 tab PO .UP TO TWICE A DAY resveratrol 250 mg capsule 250 - 500 mg PO DAILY PRN (Reason: Inflammation) metoclopramide HCl [Reglan] 10 mg tablet 10 mg PO Q6H PRN (Reason: nausea and vomiting) Qty: 90 1RF omeprazole 40 mg capsule,delayed release(DR/EC) 40 mg PO QAM Qty: 90 0RF lisinopril 40 mg Tablet 40 mg PO QAM metoprolol tartrate 100 mg tablet 100 mg PO QAM clonidine HCl 0.1 mg tablet 0.1 mg PO BEDTIME PRN (Reason: Blood Pressure) Milk of Magnesia 400 mg/5 mL Suspension 30 ml PO BID PRN (Reason: Constipation) ondansetron 4 mg tablet,disintegrating 4 mg PO Q8H PRN (Reason: nausea and vomiting) 10 Days Qty: 20 0RF multivitamin Liquid 15 ml PO DAILY trazodone 50 mg tablet 25 mg PO BEDTIME PRN (Reason: Sleep) Nu-Salt See Rx Instructions .ROUTE .COMPLEX Rx Instructions: prn Discharge Orders: Discharge ED (Routine); Ordered 12/25/22 Ordered By: Yamil Sharif Referrals: Antonio Alvarado MD [Primary Care Provider] - 1-3 days Discharge Diet: Advance as tolerated Discharge Activity: Resume usual activity Patient Instructions: Pancreatitis (ED), Opioid Safety Coding Level of Care Code 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
[2022-12-25] MEDS: sodium chloride 0.9% 1,000 ML 999 ML IV ×2 (10:38→11:49)
[2022-12-25] MEDS: fentaNYL 50 mcg/mL INJ 2mL IVP ×2 (10:38→11:48)
[2022-12-25 10:54] LABS: Basophils % 0.8 %; Eosinophils # 0.1 10^3/uL (0.0-0.8); Hematocrit 38.8 % (42.0-52.0); Hemoglobin 13.1 g/dL (11.7-16.6); Lymphocytes # 1.7 10^3/uL (0.8-4.8); Lymphocytes % 32.5 %; Mean Corpuscular HGB Conc 33.8 g/dL (30.0-36.0); Mean Corpuscular Hemoglobin 32.7 pg (28.0-34.0); Mean Corpuscular Volume 96.8 fl (80-94); Mean Platelet Volume 10.2 fL (7.4-10.4); Monocytes # 0.6 10^3/uL (0.2-0.9); Monocytes % 10.5 %; Neutrophils # 2.89 10^3/uL (1.8-7.7); Neutrophils % 55.2 %; Nucleated Red Blood Cells % 0 %; Platelet Count 139 10^3/cmm (130-400); Red Blood Count 4.01 10^6/uL (4.1-5.3); Red Cell Distribution Width 12.2 % (12.1-15.1); White Blood Count 5.2 10^3/uL (4.0-10.0)
[2022-12-25 11:12] LABS: Alanine Aminotransferase 56 U/L (0-41); Albumin Level 3.6 g/dL (3.5-5.2); Alcohol Level < 10 mg/dL (0-10); Alkaline Phosphatase 80 U/L (40-130); Anion Gap 17.5 (5-19); Aspartate Amino Transferase 70 U/L (0-40); Blood Urea Nitrogen 5 mg/dL (6-20); Calcium 8.6 mg/dL (8.5-10.5); Carbon Dioxide 22 mmol/L (22-29); Chloride 100 mmol/L (98-107); Globulin 2.9 g/dL (1.3-4.6); Glomerular Filtration Rate 192.7 mL/min (90-130); Glucose 81 mg/dL (65-115); Lipase 244 U/L (13-60); Osmolality Calculated 278 mOsm/kg (285-295); Potassium 3.5 mmol/L (3.5-5.1); Sodium 136 mmol/L (136-145); Total Protein 6.5 g/dL (6.6-8.7)
--- NOTE | 2022-12-25 11:43 | CTR_ITS ---
PROCEDURE INFORMATION: Exam: CT Abdomen And Pelvis With Contrast Exam date and time: 12/25/2022 12:00 PM Age: 32 years old Clinical indication: Abdominal pain; Epigastric; Additional info: History of pancreatitis, abdominal pain TECHNIQUE: Imaging protocol: Computed tomography of the abdomen and pelvis with contrast. Axial, coronal and sagittal reformatted images were created and reviewed. Radiation optimization: All CT scans at this facility use at least one of these dose optimization techniques: automated exposure control; mA and/or kV adjustment per patient size (includes targeted exams where dose is matched to clinical indication); or iterative reconstruction. Contrast material: OMNI 350; Contrast volume: 100 ml; Contrast route: INTRAVENOUS (IV); REPORTING DATA: Count of CT and Cardiac NM exams in prior 12 months: This patient has received 9 known CTs and 0 known cardiac nuclear medicine studies in the 12 months prior to the current study. COMPARISON: CT abdomen pelvis wo con [id number] 12/22/2022 8:15 AM RADIATION DOSE METRICS: Total DLP (mGy-cm): 867.93 FINDINGS: Liver: Mild hepatomegaly. Diffuse hepatic steatosis. Ill-defined 2.5 cm hyperdense lesion in the right hepatic lobe, likely a hemangioma. Gallbladder and bile ducts: No radiodense gallstones. No biliary ductal dilatation. Pancreas: Mild peripancreatic stranding and edema. No necrosis or hemorrhage. Spleen: Unremarkable. Adrenal glands: Normal. No mass. Kidneys and ureters: No mass. No radiodense calculi. No hydronephrosis. Stomach and bowel: No bowel wall thickening. No obstruction. No pneumatosis. Appendix: Normal. Intraperitoneal space: No free fluid. No organized fluid collection. No free air. Vasculature: Unremarkable. No aneurysm. Lymph nodes: No pathologically enlarged lymph nodes. Urinary bladder: Unremarkable as visualized. Reproductive: Unremarkable. Bones/joints: No acute osseous abnormality. Mild degenerative changes. Soft tissues: Grossly unremarkable. CT/CT abdomen pelvis w con* [id number] IMPRESSION: 1. Acute pancreatitis, as described above. Correlate with serum amylase and lipase levels. No drainable fluid collection. No necrosis or hemorrhage. 2. Additional findings, as above.
[2022-12-25] MEDS: labetalol 5 mg/mL SDV 20mL 10 MG IVP (11:48)
[2022-12-25] MEDS: iohexol 350 mg/mL 500 mL Btl (per mL) IV (11:50)
[2022-12-25] MEDS: HYDROmorphone 1 mg/mL INJ 1 mL 0.5 MG IVP (12:33)
[2022-12-25] MEDS: LORazepam 2 mg/mL INJ 1 mL 1 MG IVP (12:33)
[2022-12-25 12:36] VITALS: BP 146/92
== END 2022-12-25 12:41 | disposition home or self-care (01) ==
PROVIDERS: Emergency Provider Emergency Medicine; PCP Family Medicine Adult Medicine
DX: K85.90 Acute pancreatitis without necrosis or infection, unspecified (principal); E78.5 Hyperlipidemia, unspecified; I10 Essential (primary) hypertension
CPT/HCPCS: 74177; 80053; 80307; 83690; 85025; 96361; 96374; 96375; 99285; J1170; J2060; J3010; J3490; J7030; Q9967

== ENCOUNTER 2023-01-09 16:27 | Emergency (ER) | payer MEDICAID, SELFPAY ==
[2023-01-09] VITALS (18 sets, daily range): BP systolic 112–138; BP diastolic 73–89; PULSE 88–94; RESP 13–27; TEMP 36.9; O2SAT 93–99; BMI 31.1
--- NOTE | 2023-01-09 16:39 | ECG_ITS ---
[facility] Test Date: 2023-01-09 Pat Name: Buddy Cowan Department: Room: Gender: Male Tabber: : 1990 Requested By: Igor Isaac Order Number: [id number] Thomas MD: Jorje Eller M.D. Measurements Intervals [place] Rate: 87 P: 138 PA: 202 QRS: 97 QRSD: 86 T: 71 QT: 335 QTc: 403 Interpretive Statements SINUS RHYTHM BORDERLINE RIGHT AXIS DEVIATION [QRS AXIS > 90] LOW QRS VOLTAGE IN EXTREMITY LEADS [QRS DEFLECTION < 0.5 mV IN LIMB LEADS] Compared to ECG 12/23/2022 01:56:52 Low QRS voltage now present Sinus tachycardia no longer present Electronically Signed On 01-09-2023 22:52:37 CDT by Jorje Eller M.D. [id number]
[2023-01-09 16:44] LABS: Basophils # 0.1 10^3/uL (0.0-0.1); Basophils % 1.2 %; Eosinophils % 0.2 %; Hematocrit 42.8 % (42.0-52.0); Hemoglobin 14.9 g/dL (11.7-16.6); Lymphocytes # 1.9 10^3/uL (0.8-4.8); Lymphocytes % 31.5 %; Mean Corpuscular HGB Conc 34.8 g/dL (30.0-36.0); Mean Corpuscular Hemoglobin 32.6 pg (28.0-34.0); Mean Corpuscular Volume 93.7 fl (80-94); Mean Platelet Volume 9.2 fL (7.4-10.4); Monocytes # 0.5 10^3/uL (0.2-0.9); Monocytes % 7.6 %; Neutrophils % 59.3 %; Nucleated Red Blood Cells % 0 %; Platelet Count 367 10^3/cmm (130-400); Red Blood Count 4.57 10^6/uL (4.1-5.3); Red Cell Distribution Width 12.2 % (12.1-15.1); White Blood Count 6.1 10^3/uL (4.0-10.0)
[2023-01-09 17:03] LABS: Alanine Aminotransferase 42 U/L (0-41); Albumin Level 4.5 g/dL (3.5-5.2); Alkaline Phosphatase 97 U/L (40-130); Anion Gap 27.2 (5-19); Aspartate Amino Transferase 50 U/L (0-40); Blood Urea Nitrogen 10 mg/dL (6-20); Calcium 8.9 mg/dL (8.5-10.5); Carbon Dioxide 18 mmol/L (22-29); Chloride 88 mmol/L (98-107); Globulin 2.6 g/dL (1.3-4.6); Glomerular Filtration Rate 130.7 mL/min (90-130); Glucose 102 mg/dL (65-115); Lipase 36 U/L (13-60); Osmolality Calculated 267 mOsm/kg (285-295); Potassium 4.2 mmol/L (3.5-5.1); Sodium 129 mmol/L (136-145); Total Bilirubin 0.8 mg/dL (0.15-1.2); Total Protein 7.1 g/dL (6.6-8.7)
--- NOTE | 2023-01-09 17:33 | W.ED.ABDPA2 ---
Documented by User: Igor Diaz DO 01/10/23 06:02 HPI - Abdominal Pain General: Chief Complaint: Abdominal Pain Stated Complaint: ABDOMINAL PAIN Time Seen by Provider: 01/09/23 16:30 History of Present Illness: 32-year-old male presents emergency room complaining abdominal pain nausea vomiting. Has been using edibles THC products to try to control nausea and vomiting. He also is a former heavy drinker and relapsed last night drank a full bottle of wine. MD elicited complaint: abdominal pain Onset (ago): minute(s) Location: Epigastric Severity: moderate Quality: cramping Exacerbating factors: vomiting Relieving factors: nothing Associated Symptoms: Reports bloating, GI cramping, nausea, poor appetite and vomiting; Denies anorexia, belching, change in bowel habits, change in stool character, chills, coffee ground emesis, constipation, diarrhea, dyspepsia, dysuria, excessive flatus, fever(s), heartburn, hematochezia, hematuria, hematemesis, fecal incontinence, loose stools, melena and syncope Review of Systems Const: Denies: fever(s) or chills ENMT: Denies: throat pain, ear or mastoid pain, nasal discharge or nasal congestion Card: Denies: syncope Resp: Denies: dyspnea, productive cough or non-productive cough GI: Reports: nausea, vomiting, bloating and GI cramping; Denies: hematemesis, coffee ground emesis, heartburn, diarrhea, constipation, belching, excessive flatus, fecal incontinence, change in bowel habits, change in stool character, hematochezia or melena : Denies: dysuria or hematuria Skin/Breast: Denies: rash or pruritus PFSH ED PFSH: Medical History Abdominal pain Acute on chronic pancreatitis Acute pancreatitis Acute posttraumatic stress disorder Alcohol abuse Alcohol abuse Alcohol withdrawal Anxiety and depression Generalized anxiety disorder with panic attacks GERD (gastroesophageal reflux disease) High anion gap metabolic acidosis Hyperlipidemia Hypertension Insomnia Marital/partner relational problem Pancreatitis, acute Psychiatric care Transaminitis Surgical History No pertinent past surgical history Family History Father Hypertension Social History Smoking and tobacco status: never smoked Alcohol intake: current Alcohol intake frequency: 0-2 Drinks per Day Marital status: Number of children: 5 Current occupational status: employed Current gender identity: Male Physical Exam Const: COMMON NORMALS: no acute distress GENERAL APPEARANCE: cooperative and comfortable ORIENTATION/CONSCIOUSNESS: Yes awake, Yes oriented to person, Yes oriented to place and Yes oriented to time HENMT: COMMON NORMALS: normocephalic, atraumatic and hearing grossly normal bilaterally HEAD & SCALP: normocephalic and atraumatic Resp: COMMON NORMALS: normal respiratory effort, No retractions, No use of accessory muscles and clear to auscultation bilaterally AUSCULTATION: clear to auscultation bilaterally Cardio: COMMON NORMALS: regular rate, regular rhythm and No murmurs present (Cardio) RATE: regular rate RHYTHM: regular rhythm GI: COMMON NORMALS: No hepatosplenomegaly present AUSCULTATION: Yes normoactive bowel sounds PALPATION: Yes Tenderness to palpation present (GI), No Guarding due to palpation present (GI) and Yes No hepatosplenomegaly present Extremity: COMMON NORMALS: normal to inspection, capillary refill normal, no clubbing, cyanosis or edema, no calf tenderness and no pedal edema Neuro: SENSORIUM/ORIENTATION: Yes oriented to person, Yes oriented to place and Yes oriented to time Skin: COMMON NORMALS: no rashes or lesions noted GENERAL SKIN EXAM: no rashes or lesions noted Course Vital Signs: Vital signs: Vital Signs Temperature 98.4 F 01/09/23 16:30 Pulse Rate 90 01/09/23 22:16 Respiratory Rate 16 01/09/23 22:16 Blood Pressure 122/81 01/09/23 22:16 Pulse Oximetry 95 01/09/23 22:16 Oxygen Delivery Me thod 01/09/23 22:01 MDM - Abdominal Pain Medical Decision Making Care signed out to Dr. Sharif at change of shift. See final notes for diagnosis and disposition. Patient presents here with abdominal pain along with vomiting he did have an elevated anion gap with an elevated lactate likely from dehydration from his vomiting both have improved after fluids he feels much improved he stable for discharge no signs of any infections or sepsis he is to follow-up with his PCP and return if worsening he understands agrees to plan. Lab Data 01/09/23 16:35 01/09/23 16:35 Labs/Radiology: Radiology Impressions Abdomen/Pelvis CT 01/09/23 19:45 IMPRESSION: 1. Persistent changes of mild acute pancreatitis since 12/25/2022. No evidence of complication. 2. Mild colonic wall thickening versus underdistention. Correlate for possible colitis. No bowel obstruction. 3. Stable hepatomegaly with fatty infiltration of the liver. Stable probable hemangioma inferior right hepatic lobe incompletely characterized. Laboratory Results WBC 6.1 10^3/uL (4.0-10.0) 01/09/23 16:35 RBC 4.57 10^6/uL (4.1-5.3) 01/09/23 16:35 Hgb 14.9 g/dL (11.7-16.6) 01/09/23 16:35 Hct 42.8 % (42.0-52.0) 01/09/23 16:35 MCV 93.7 fl (80-94) 01/09/23 16:35 MCH 32.6 pg (28.0-34.0) 01/09/23 16:35 MCHC 34.8 g/dL (30.0-36.0) 01/09/23 16:35 RDW 12.2 % (12.1-15.1) 01/09/23 16:35 Plt Count 367 10^3/cmm (130-400) 01/09/23 16:35 MPV 9.2 fL (7.4-10.4) 01/09/23 16:35 Neut % (Auto) 59.3 % 01/09/23 16:35 Lymph % (Auto) 31.5 % 01/09/23 16:35 Nuckolls % (Auto) 7.6 % 01/09/23 16:35 Eos % (Auto) 0.2 % 01/09/23 16:35 Baso % (Auto) 1.2 % 01/09/23 16:35 Neut # (Auto) 3.60 10^3/uL (1.8-7.7) 01/09/23 16:35 Lymph # (Auto) 1.9 10^3/uL (0.8-4.8) 01/09/23 16:35 Nuckolls # (Auto) 0.5 10^3/uL (0.2-0.9) 01/09/23 16:35 Eos # (Auto) 0.0 10^3/uL (0.0-0.8) 01/09/23 16:35 Baso # (Auto) 0.1 10^3/uL (0.0-0.1) 01/09/23 16:35 Nucleated RBC % (auto) 0 % 01/09/23 16:35 Nucleated RBCs # 0.0 /100WBC 01/09/23 16:35 Specimen Type Arterial 01/09/23 09:30 Sample Site Radial, right 01/09/23 09:30 ABG pH 7.40 (7.35-7.45) 01/09/23 09:30 ABG pCO2 34.7 mmHg (35-45) L 01/09/23 09:30 ABG pO2 78.5 mmHg (80.0-100.0) L 01/09/23 09:30 ABG HCO3 21.4 mmol/L (22-26) L 01/09/23 09:30 ABG Base Excess -2.7 mmol/L (-2.0-2.0) L 01/09/23 09:30 Ricardo Test Pos 01/09/23 09:30 Hematocrit 43.0 % (42-52) 01/09/23 09:30 O2 Delivery Device None 01/09/23 09:30 FiO2 21.0 % 01/09/23 09:30 Project Production Engineer ID [email or web address] 01/09/23 09:30 Sodium 129 mmol/L (136-145) L 01/09/23 20:50 Potassium 4.3 mmol/L (3.5-5.1) 01/09/23 20:50 Chloride 94 mmol/L (98-107) L 01/09/23 20:50 Carbon Dioxide 23 mmol/L (22-29) 01/09/23 20:50 Anion Gap 16.3 (5-19) 01/09/23 20:50 BUN 8 mg/dL (6-20) 01/09/23 20:50 Creatinine 0.6 mg/dL (0.7-1.2) L 01/09/23 20:50 GFR Calculation 156.1 mL/min (90-130) H 01/09/23 20:50 Glucose 82 mg/dL (65-115) 01/09/23 20:50 Calculated Osmolality 265 mOsm/kg (285-295) L 01/09/23 20:50 Lactate 3.1 mmol/L (0.5-2.2) H 01/09/23 20:50 Calcium 7.5 mg/dL (8.5-10.5) L 01/09/23 20:50 Total Bilirubin 0.8 mg/dL (0.15-1.2) 01/09/23 16:35 AST 50 U/L (0-40) H 01/09/23 16:35 ALT 42 U/L (0-41) H 01/09/23 16:35 Alkaline Phosphatase 97 U/L (40-130) 01/09/23 16:35 Total Protein 7.1 g/dL (6.6-8.7) 01/09/23 16:35 Albumin 4.5 g/dL (3.5-5.2) 01/09/23 16:35 Globulin 2.6 g/dL (1.3-4.6) 01/09/23 16:35 Lipase 36 U/L (13-60) 01/09/23 16:35 Urine Color Cancelled 01/09/23 19:40 Urine Color Yellow (Yellow) 01/09/23 19:40 Urine Appearance Cancelled 01/09/23 19:40 Urine Appearance Clear (CLEAR) 01/09/23 19:40 Urine pH 6 (5-7) 01/09/23 19:40 Urine pH Cancelled 01/09/23 19:40 Ur Specific [employer] 1.015 (1.005-1.030) 01/09/23 19:40 Ur Specific [employer] Cancelled 01/09/23 19:40 Urine Protein Cancelled 01/09/23 19:40 Urine Protein Neg (Negative) 01/09/23 19:40 Urine Glucose (UA) Cancelled 01/09/23 19:40 Urine Glucose (UA) Norm (Normal) 01/09/23 19:40 Urine Ketones 2+ (Negative) H 01/09/23 19:40 Urine Ketones Cancelled 01/09/23 19:40 Urine Blood Cancelled 01/09/23 19:40 Urine Blood Neg (Negative) 01/09/23 19:40 Urine Nitrate Cancelled 01/09/23 19:40 Urine Nitrate Negative (Negative) 01/09/23 19:40 Urine Bilirubin Cancelled 01/09/23 19:40 Urine Bilirubin Neg (Negative) 01/09/23 19:40 Prot Sulfosalicylic Acd Cancelled 01/09/23 19:40 Urine Urobilinogen Cancelled 01/09/23 19:40 Urine Urobilinogen Neg mg/dL (Negative) 01/09/23 19:40 Ur Leukocyte Esterase Cancelled 01/09/23 19:40 Ur Leukocyte Esterase Negative (Negative) 01/09/23 19:40 Ethyl Alcohol 238 mg/dL (0-10) H 01/09/23 16:31 Discharge Plan Discharge Patient Disposition: Home Clinical Impression: Abdominal pain, Vomiting, Dehydration, Acute alcohol intoxication Condition: Stable Prescriptions: New hydrocodone-acetaminophen 5-325 mg tablet 1 tab PO Q6H PRN (Reason: pain) Qty: 14 0RF Reglan 10 mg tablet 10 mg PO Q6H PRN (Reason: nausea and vomiting) Qty: 20 0RF No Action digestive enzymes Tablet 1 tab PO .UP TO TWICE A DAY resveratrol 250 mg capsule 250 - 500 mg PO DAILY PRN (Reason: Inflammation) metoclopramide HCl [Reglan] 10 mg tablet 10 mg PO Q6H PRN (Reason: nausea and vomiting) Qty: 90 1RF omeprazole 40 mg capsule,delayed release(DR/EC) 40 mg PO QAM Qty: 90 0RF lisinopril 40 mg Tablet 40 mg PO QAM metoprolol tartrate 100 mg tablet 100 mg PO QAM clonidine HCl 0.1 mg tablet 0.1 mg PO BEDTIME PRN (Reason: Blood Pressure) Milk of Magnesia 400 mg/5 mL Suspension 30 ml PO BID PRN (Reason: Constipation) multivitamin Liquid 15 ml PO DAILY trazodone 50 mg tablet 25 mg PO BEDTIME PRN (Reason: Sleep) Nu-Salt See Rx Instructions .ROUTE .COMPLEX Rx Instructions: prn hydrocodone-acetaminophen 5-325 mg tablet 1 tab PO Q6H PRN (Reason: pain) Qty: 14 0RF ondansetron 4 mg tablet,disintegrating 4 mg PO Q6H PRN (Reason: nausea and vomiting) Qty: 14 0RF Discharge Orders: Discharge ED (Routine); Ordered 01/09/23 Ordered By: Yamil Sharif Referrals: Antonio Alvarado MD [Primary Care Provider] - 1-3 days Discharge Diet: Advance as tolerated Discharge Activity: Resume usual activity Patient Instructions: Abdominal Pain (ED), Opioid Safety Coding 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 of Care 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 Documented by User: Yamil Sharif MD 01/09/23 22:25 HPI - Abdominal Pain General: Chief Complaint: Abdominal Pain Stated Complaint: ABDOMINAL PAIN Time Seen by Provider: 01/09/23 16:30 PFSH ED PFSH: Medical History Abdominal pain Acute on chronic pancreatitis Acute pancreatitis Acute posttraumatic stress disorder Alcohol abuse Alcohol abuse Alcohol withdrawal Anxiety and depression Generalized anxiety disorder with panic attacks GERD (gastroesophageal reflux disease) High anion gap metabolic acidosis Hyperlipidemia Hypertension Insomnia Marital/partner relational problem Pancreatitis, acute Psychiatric care Transaminitis Surgical History No pertinent past surgical history Family History Father Hypertension Social History Smoking and tobacco status: never smoked Alcohol intake: current Alcohol intake frequency: 0-2 Drinks per Day Marital status: Number of children: 5 Current occupational status: employed Current gender identity: Male Course Vital Signs: Vital signs: Vital Signs Temperature 98.4 F 01/09/23 16:30 Pulse Rate 90 01/09/23 22:16 Respiratory Rate 16 01/09/23 22:16 Blood Pressure 122/81 01/09/23 22:16 Pulse Oximetry 95 01/09/23 22:16 Oxygen Delivery Me thod 01/09/23 22:01 MDM - Abdominal Pain Medical Decision Making Patient presents here with abdominal pain along with vomiting he did have an elevated anion gap with an elevated lactate likely from dehydration from his vomiting both have improved after fluids he feels much improved he stable for discharge no signs of any infections or sepsis he is to follow-up with his PCP and return if worsening he understands agrees to plan. Lab Data 01/09/23 16:35 01/09/23 16:35 Labs/Radiology: Radiology Impressions Abdomen/Pelvis CT 01/09/23 19:45 IMPRESSION: 1. Persistent changes of mild acute pancreatitis since 12/25/2022. No evidence of complication. 2. Mild colonic wall thickening versus underdistention. Correlate for possible colitis. No bowel obstruction. 3. Stable hepatomegaly with fatty infiltration of the liver. Stable probable hemangioma inferior right hepatic lobe incompletely characterized. Laboratory Results WBC 6.1 10^3/uL (4.0-10.0) 01/09/23 16:35 RBC 4.57 10^6/uL (4.1-5.3) 01/09/23 16:35 Hgb 14.9 g/dL (11.7-16.6) 01/09/23 16:35 Hct 42.8 % (42.0-52.0) 01/09/23 16:35 MCV 93.7 fl (80-94) 01/09/23 16:35 MCH 32.6 pg (28.0-34.0) 01/09/23 16:35 MCHC 34.8 g/dL (30.0-36.0) 01/09/23 16:35 RDW 12.2 % (12.1-15.1) 01/09/23 16:35 Plt Count 367 10^3/cmm (130-400) 01/09/23 16:35 MPV 9.2 fL (7.4-10.4) 01/09/23 16:35 Neut % (Auto) 59.3 % 01/09/23 16:35 Lymph % (Auto) 31.5 % 01/09/23 16:35 Nuckolls % (Auto) 7.6 % 01/09/23 16:35 Eos % (Auto) 0.2 % 01/09/23 16:35 Baso % (Auto) 1.2 % 01/09/23 16:35 Neut # (Auto) 3.60 10^3/uL (1.8-7.7) 01/09/23 16:35 Lymph # (Auto) 1.9 10^3/uL (0.8-4.8) 01/09/23 16:35 Nuckolls # (Auto) 0.5 10^3/uL (0.2-0.9) 01/09/23 16:35 Eos # (Auto) 0.0 10^3/uL (0.0-0.8) 01/09/23 16:35 Baso # (Auto) 0.1 10^3/uL (0.0-0.1) 01/09/23 16:35 Nucleated RBC % (auto) 0 % 01/09/23 16:35 Nucleated RBCs # 0.0 /100WBC 01/09/23 16:35 Specimen Type Arterial 01/09/23 09:30 Sample Site Radial, right 01/09/23 09:30 ABG pH 7.40 (7.35-7.45) 01/09/23 09:30 ABG pCO2 34.7 mmHg (35-45) L 01/09/23 09:30 ABG pO2 78.5 mmHg (80.0-100.0) L 01/09/23 09:30 ABG HCO3 21.4 mmol/L (22-26) L 01/09/23 09:30 ABG Base Excess -2.7 mmol/L (-2.0-2.0) L 01/09/23 09:30 Ricardo Test Pos 01/09/23 09:30 Hematocrit 43.0 % (42-52) 01/09/23 09:30 O2 Delivery Device None 01/09/23 09:30 FiO2 21.0 % 01/09/23 09:30 Project Production Engineer ID [email or web address] 01/09/23 09:30 Sodium 129 mmol/L (136-145) L 01/09/23 20:50 Potassium 4.3 mmol/L (3.5-5.1) 01/09/23 20:50 Chloride 94 mmol/L (98-107) L 01/09/23 20:50 Carbon Dioxide 23 mmol/L (22-29) 01/09/23 20:50 Anion Gap 16.3 (5-19) 01/09/23 20:50 BUN 8 mg/dL (6-20) 01/09/23 20:50 Creatinine 0.6 mg/dL (0.7-1.2) L 01/09/23 20:50 GFR Calculation 156.1 mL/min (90-130) H 01/09/23 20:50 Glucose 82 mg/dL (65-115) 01/09/23 20:50 Calculated Osmolality 265 mOsm/kg (285-295) L 01/09/23 20:50 Lactate 3.1 mmol/L (0.5-2.2) H 01/09/23 20:50 Calcium 7.5 mg/dL (8.5-10.5) L 01/09/23 20:50 Total Bilirubin 0.8 mg/dL (0.15-1.2) 01/09/23 16:35 AST 50 U/L (0-40) H 01/09/23 16:35 ALT 42 U/L (0-41) H 01/09/23 16:35 Alkaline Phosphatase 97 U/L (40-130) 01/09/23 16:35 Total Protein 7.1 g/dL (6.6-8.7) 01/09/23 16:35 Albumin 4.5 g/dL (3.5-5.2) 01/09/23 16:35 Globulin 2.6 g/dL (1.3-4.6) 01/09/23 16:35 Lipase 36 U/L (13-60) 01/09/23 16:35 Urine Color Cancelled 01/09/23 19:40 Urine Color Yellow (Yellow) 01/09/23 19:40 Urine Appearance Cancelled 01/09/23 19:40 Urine Appearance Clear (CLEAR) 01/09/23 19:40 Urine pH 6 (5-7) 01/09/23 19:40 Urine pH Cancelled 01/09/23 19:40 Ur Specific [employer] 1.015 (1.005-1.030) 01/09/23 19:40 Ur Specific [employer] Cancelled 01/09/23 19:40 Urine Protein Cancelled 01/09/23 19:40 Urine Protein Neg (Negative) 01/09/23 19:40 Urine Glucose (UA) Cancelled 01/09/23 19:40 Urine Glucose (UA) Norm (Normal) 01/09/23 19:40 Urine Ketones 2+ (Negative) H 01/09/23 19:40 Urine Ketones Cancelled 01/09/23 19:40 Urine Blood Cancelled 01/09/23 19:40 Urine Blood Neg (Negative) 01/09/23 19:40 Urine Nitrate Cancelled 01/09/23 19:40 Urine Nitrate Negative (Negative) 01/09/23 19:40 Urine Bilirubin Cancelled 01/09/23 19:40 Urine Bilirubin Neg (Negative) 01/09/23 19:40 Prot Sulfosalicylic Acd Cancelled 01/09/23 19:40 Urine Urobilinogen Cancelled 01/09/23 19:40 Urine Urobilinogen Neg mg/dL (Negative) 01/09/23 19:40 Ur Leukocyte Esterase Cancelled 01/09/23 19:40 Ur Leukocyte Esterase Negative (Negative) 01/09/23 19:40 Ethyl Alcohol 238 mg/dL (0-10) H 01/09/23 16:31 Discharge Plan Discharge Patient Disposition: Home Clinical Impression: Abdominal pain, Vomiting, Dehydration, Acute alcohol intoxication Condition: Stable Prescriptions: New hydrocodone-acetaminophen 5-325 mg tablet 1 tab PO Q6H PRN (Reason: pain) Qty: 14 0RF Reglan 10 mg tablet 10 mg PO Q6H PRN (Reason: nausea and vomiting) Qty: 20 0RF No Action digestive enzymes Tablet 1 tab PO .UP TO TWICE A DAY resveratrol 250 mg capsule 250 - 500 mg PO DAILY PRN (Reason: Inflammation) metoclopramide HCl [Reglan] 10 mg tablet 10 mg PO Q6H PRN (Reason: nausea and vomiting) Qty: 90 1RF omeprazole 40 mg capsule,delayed release(DR/EC) 40 mg PO QAM Qty: 90 0RF lisinopril 40 mg Tablet 40 mg PO QAM metoprolol tartrate 100 mg tablet 100 mg PO QAM clonidine HCl 0.1 mg tablet 0.1 mg PO BEDTIME PRN (Reason: Blood Pressure) Milk of Magnesia 400 mg/5 mL Suspension 30 ml PO BID PRN (Reason: Constipation) multivitamin Liquid 15 ml PO DAILY trazodone 50 mg tablet 25 mg PO BEDTIME PRN (Reason: Sleep) Nu-Salt See Rx Instructions .ROUTE .COMPLEX Rx Instructions: prn hydrocodone-acetaminophen 5-325 mg tablet 1 tab PO Q6H PRN (Reason: pain) Qty: 14 0RF ondansetron 4 mg tablet,disintegrating 4 mg PO Q6H PRN (Reason: nausea and vomiting) Qty: 14 0RF Discharge Orders: Discharge ED (Routine); Ordered 01/09/23 Ordered By: Yamil Sharif Referrals: Antonio Alvarado MD [Primary Care Provider] - 1-3 days Discharge Diet: Advance as tolerated Discharge Activity: Resume usual activity Patient Instructions: Abdominal Pain (ED), Opioid Safety Coding 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
[2023-01-09] MEDS: lidocaine 2% viscous 15 ML, aluminum-mag hydrox-simethicon 30 ML, sucralfate oral liq 1 GM PO (17:34)
[2023-01-09] MEDS: haloperidol inj 5 mg/mL INJ 1 mL 2.5 MG IVP (17:35)
[2023-01-09] MEDS: LORazepam 2 mg/mL INJ 1 mL IVP ×2 (17:36→20:48)
[2023-01-09] MEDS: sodium chloride 0.9% 1,000 ML 999 ML IV ×4 (17:48→20:39)
[2023-01-09 19:40] LABS: Lactate (Lactic Acid level) 5.7 mmol/L (0.5-2.2)
[2023-01-09 19:41] LABS: ABG PCO2 34.7 mmHg (35-45); Base Excess ABG -2.7 mmol/L (-2.0-2.0); Blood Gas Allen Test Pos; Blood Gas Sample Site Radial, right; Blood Gas Sample Type Arterial; HCO3 ABG 21.4 mmol/L (22-26); PO2 ABG 78.5 mmHg (80.0-100.0)
--- NOTE | 2023-01-09 19:45 | CTR_ITS ---
PROCEDURE INFORMATION: Exam: CT Abdomen And Pelvis With Contrast Exam date and time: 01/09/2023 7:59 PM Age: 32 years old Clinical indication: Pain and abnormal findings; Abnormal lab test; Abdominal pain; Patient HX: C/O epigastric pain. Lactate of 5.7; Additional info: Abd pain TECHNIQUE: Imaging protocol: Computed tomography of the abdomen and pelvis with contrast. Radiation optimization: All CT scans at this facility use at least one of these dose optimization techniques: automated exposure control; mA and/or kV adjustment per patient size (includes targeted exams where dose is matched to clinical indication); or iterative reconstruction. Contrast material: OMNI 350; Contrast volume: 100 ml; Contrast route: INTRAVENOUS (IV); REPORTING DATA: Count of CT and Cardiac NM exams in prior 12 months: This patient has received 9 known CTs and 0 known cardiac nuclear medicine studies in the 12 months prior to the current study. COMPARISON: CT abdomen pelvis w con* [id number] 12/25/2022 12:00 PM RADIATION DOSE METRICS: Total DLP (mGy-cm): 739.72 FINDINGS: Liver: The liver is diffusely enlarged measuring 21 cm with fatty infiltration which is unchanged. Ill-defined hyperdense 2.5 cm lesion inferior right hepatic lobe is unchanged again favor hemangioma. Gallbladder and bile ducts: Normal. No calcified stones. No ductal dilation. Pancreas: Mild peripancreatic stranding and edema is present appearing decreased since comparison 12/25/2022 exam. No fluid collection or abscess. The pancreas appears mildly diffusely prominent which is similar. Spleen: Normal. No splenomegaly. Adrenal glands: Normal. No mass. Kidneys and ureters: Normal. No hydronephrosis. Stomach and bowel: Scattered regions of colonic wall thickening versus underdistention. No evidence of bowel obstruction. Appendix: No evidence of appendicitis. Intraperitoneal space: Unremarkable. No free air. No significant fluid collection. Vasculature: Unremarkable. No abdominal aortic aneurysm. Lymph nodes: Unremarkable. No enlarged lymph nodes. Urinary bladder: Unremarkable as visualized. Reproductive: Unremarkable as visualized. Bones/joints: Unremarkable. No acute fracture. Soft tissues: Unremarkable. Other findings: Study is degraded by motion. CT/CT abdomen pelvis w con* [id number] IMPRESSION: 1. Persistent changes of mild acute pancreatitis since 12/25/2022. No evidence of complication. 2. Mild colonic wall thickening versus underdistention. Correlate for possible colitis. No bowel obstruction. 3. Stable hepatomegaly with fatty infiltration of the liver. Stable probable hemangioma inferior right hepatic lobe incompletely characterized.
[2023-01-09 19:58] LABS: Add Urine Microscopic? NO; Charge for UA Resulting for Rev
[2023-01-09] MEDS: iohexol 350 mg/mL 500 mL Btl (per mL) IV (20:07)
[2023-01-09] MEDS: HYDROmorphone 1 mg/mL INJ 1 mL IVP (20:14)
[2023-01-09 20:28] LABS: Urine Color Yellow (Yellow)
[2023-01-09 20:29] LABS: Bilirubin Urine Neg (Negative); Blood Urine Neg (Negative); Glucose Urine UA Norm (Normal); Ketones Urine 2+ (Negative); Leukocyte Esterase Urine Negative (Negative); Nitrate Urine Negative (Negative); Protein Urine Neg (Negative); Specific Gravity, Urine 1.015 (1.005-1.030); Urine Appearance Clear (CLEAR); Urobilinogen Urine Neg (Negative); pH Urine 6 (5-7)
[2023-01-09 20:41] LABS: Alcohol Level 238 mg/dL (0-10)
[2023-01-09 21:24] LABS: Anion Gap 16.3 (5-19); Blood Urea Nitrogen 8 mg/dL (6-20); Calcium 7.5 mg/dL (8.5-10.5); Carbon Dioxide 23 mmol/L (22-29); Chloride 94 mmol/L (98-107); Glomerular Filtration Rate 156.1 mL/min (90-130); Glucose 82 mg/dL (65-115); Lactate (Lactic Acid level) 3.1 mmol/L (0.5-2.2); Osmolality Calculated 265 mOsm/kg (285-295); Potassium 4.3 mmol/L (3.5-5.1); Sodium 129 mmol/L (136-145)
== END 2023-01-09 22:16 | disposition home or self-care (01) ==
PROVIDERS: Family Medicine; Emergency Provider Emergency Medicine; PCP Family Medicine Adult Medicine
DX: R10.9 Unspecified abdominal pain (principal); R11.11 Vomiting without nausea; E86.0 Dehydration; F10.129 Alcohol abuse with intoxication, unspecified; Y90.7 Blood alcohol level of 200-239 mg/100 ml; E78.5 Hyperlipidemia, unspecified; I10 Essential (primary) hypertension
CPT/HCPCS: 36415; 36600; 74177; 80048; 80053; 80307; 81003; 82803; 83605; 83690; 85025; 93005; 96361; 96374; 96375; 96376; 99285; J1170; J1630; J2060; J7030; Q9967

== ENCOUNTER 2023-01-24 02:43 | Emergency (ER) | payer MEDICAID, SELFPAY ==
[2023-01-24 02:45] VITALS: TEMP 36.9; BMI 29.8
[2023-01-24 02:51] VITALS: BP 149/97; PULSE 101; RESP 18; TEMP 36.9; O2SAT 99
--- NOTE | 2023-01-24 02:52 | W.ED.ABDPA2 ---
HPI - Abdominal Pain General: Chief Complaint: Abdominal Pain Stated Complaint: RUQ pain Time Seen by Provider: 01/24/23 02:46 Source: patient and EMS Mode of arrival: EMS Limitations: no limitations History of Present Illness: 32-year-old male who is well-known to ER has chronic alcoholism had a history of pancreatitis as well. He states he had been drinking last night he has been having abdominal pain that started this evening. He states is epigastric in nature rates it a 6 out of 10 he is also had nausea and vomiting. He denies any fevers denies any worsening improving factors. Denies any diarrhea. Associated Symptoms: Reports nausea and vomiting; Denies chills, diarrhea, dysuria and fever(s) Review of Systems Const: Denies: fever(s), chills, body aches or change in appetite ENMT: Denies: throat pain or dental pain Card: Denies: chest pain Resp: Denies: dyspnea GI: Reports: abdominal pain, nausea and vomiting; Denies: diarrhea : Denies: dysuria Musc: Denies: neck pain or back pain Skin/Breast: Denies: rash Neuro: Denies: headache(s) Psych: Denies: depression Kris/Lymph: Denies: easy bruising All/Imm: Denies: urticaria PFSH ED PFSH: Medical History Acute on chronic pancreatitis Acute posttraumatic stress disorder Alcohol abuse Anxiety and depression GERD (gastroesophageal reflux disease) High anion gap metabolic acidosis Hyperlipidemia Hypertension Marital/partner relational problem Psychiatric care Surgical History No pertinent past surgical history Family History Father Hypertension Social History Smoking and tobacco status: never smoked Alcohol intake: current Alcohol intake frequency: 0-2 Drinks per Day Marital status: Number of children: 5 Current occupational status: employed Current gender identity: Male Physical Exam Const: COMMON NORMALS: no acute distress, patient oriented x3 and healthy appearing HENMT: COMMON NORMALS: normocephalic and atraumatic HEAD & SCALP: normocephalic and atraumatic Eye: COMMON NORMALS: conjunctivae normal CONJUNCTIVA: Yes conjunctivae normal Neck/C-Spine: COMMON NORMALS: full ROM and supple Chest: COMMONS NORMALS: normal inspection of the chest and normal palpation of entire chest wall Resp: COMMON NORMALS: normal respiratory effort, No retractions, No use of accessory muscles and clear to auscultation bilaterally AUSCULTATION: clear to auscultation bilaterally Cardio: COMMON NORMALS: regular rate, regular rhythm and No murmurs present (Cardio) RATE: regular rate RHYTHM: regular rhythm GI: COMMON NORMALS: Normal to inspection, nondistended, normoactive bowel sounds present, Soft to palpation, non-tender and no masses PALPATION: Yes Soft to palpation Extremity: COMMON NORMALS: normal to inspection and full ROM Neuro: COMMON NORMALS: patient oriented x3, moves all extremities and no focal motor deficits Psych: COMMON NORMALS: mental status grossly normal, Normal thought process present and cooperative THOUGHT PROCESS: Normal thought process present Skin: COMMON NORMALS: no rashes or lesions noted and no wounds GENERAL SKIN EXAM: no rashes or lesions noted Course Vital Signs: Vital signs: Vital Signs Temperature 98.5 F 01/24/23 02:51 Pulse Rate 95 01/24/23 03:43 Respiratory Rate 18 01/24/23 02:51 Blood Pressure 142/98 01/24/23 03:43 Pulse Oximetry 97 01/24/23 03:51 Oxygen Delivery Me thod Room Air 01/24/23 03:51 MDM - Abdominal Pain Medical Decision Making Patient presents with abdominal pain alcohol intoxication his abdominal exam here is benign lab works normal no signs of pancreatitis or acute surgical abdomen he is have an elevated alcohol likely having some gastritis he is ambulatory here he has a ride home he is stable for discharge at this time. Medical Records I reviewed the patient's medical records. Lab Data I reviewed the patient's lab results. 01/24/23 02:52 01/24/23 02:52 Labs/Radiology: Laboratory Results WBC 4.2 10^3/uL (4.0-10.0) 01/24/23 02:52 RBC 4.29 10^6/uL (4.1-5.3) 01/24/23 02:52 Hgb 14.0 g/dL (11.7-16.6) 01/24/23 02:52 Hct 40.2 % (42.0-52.0) L 01/24/23 02:52 MCV 93.7 fl (80-94) 01/24/23 02:52 MCH 32.6 pg (28.0-34.0) 01/24/23 02:52 MCHC 34.8 g/dL (30.0-36.0) 01/24/23 02:52 RDW 12.0 % (12.1-15.1) L 01/24/23 02:52 Plt Count 136 10^3/cmm (130-400) 01/24/23 02:52 MPV 9.4 fL (7.4-10.4) 01/24/23 02:52 Neut % (Auto) 33.5 % 01/24/23 02:52 Lymph % (Auto) 54.1 % 01/24/23 02:52 Davison % (Auto) 11.5 % 01/24/23 02:52 Eos % (Auto) 0.2 % 01/24/23 02:52 Baso % (Auto) 0.7 % 01/24/23 02:52 Neut # (Auto) 1.39 10^3/uL (1.8-7.7) L 01/24/23 02:52 Lymph # (Auto) 2.3 10^3/uL (0.8-4.8) 01/24/23 02:52 Davison # (Auto) 0.5 10^3/uL (0.2-0.9) 01/24/23 02:52 Eos # (Auto) 0.0 10^3/uL (0.0-0.8) 01/24/23 02:52 Baso # (Auto) 0.0 10^3/uL (0.0-0.1) 01/24/23 02:52 Nucleated RBC % (auto) 0 % 01/24/23 02:52 Nucleated RBCs # 0.0 /100WBC 01/24/23 02:52 Sodium 129 mmol/L (136-145) L 01/24/23 02:52 Potassium 4.1 mmol/L (3.5-5.1) 01/24/23 02:52 Chloride 89 mmol/L (98-107) L 01/24/23 02:52 Carbon Dioxide 20 mmol/L (22-29) L 01/24/23 02:52 Anion Gap 24.1 (5-19) H 01/24/23 02:52 BUN 6 mg/dL (6-20) 01/24/23 02:52 Creatinine 0.6 mg/dL (0.7-1.2) L 01/24/23 02:52 GFR Calculation 156.1 mL/min (90-130) H 01/24/23 02:52 Glucose 106 mg/dL (65-115) 01/24/23 02:52 Calculated Osmolality 266 mOsm/kg (285-295) L 01/24/23 02:52 Calcium 9.0 mg/dL (8.5-10.5) 01/24/23 02:52 Total Bilirubin 0.4 mg/dL (0.15-1.2) 01/24/23 02:52 AST 118 U/L (0-40) H 01/24/23 02:52 ALT 115 U/L (0-41) H 01/24/23 02:52 Alkaline Phosphatase 93 U/L (40-130) 01/24/23 02:52 Total Protein 7.5 g/dL (6.6-8.7) 01/24/23 02:52 Albumin 4.4 g/dL (3.5-5.2) 01/24/23 02:52 Globulin 3.1 g/dL (1.3-4.6) 01/24/23 02:52 Lipase 85 U/L (13-60) H 01/24/23 02:52 Ethyl Alcohol 390 mg/dL (0-10) H* 01/24/23 02:52 Discharge Plan Discharge Patient Disposition: Home Clinical Impression: Abdominal pain, Alcohol intoxication Condition: Stable Prescriptions: New ondansetron 4 mg tablet,disintegrating 4 mg PO Q6H PRN (Reason: nausea and vomiting) Qty: 14 0RF No Action digestive enzymes Tablet 1 tab PO .UP TO TWICE A DAY resveratrol 250 mg capsule 250 - 500 mg PO DAILY PRN (Reason: Inflammation) metoclopramide HCl [Reglan] 10 mg tablet 10 mg PO Q6H PRN (Reason: nausea and vomiting) Qty: 90 1RF omeprazole 40 mg capsule,delayed release(DR/EC) 40 mg PO QAM Qty: 90 0RF lisinopril 40 mg Tablet 40 mg PO QAM metoprolol tartrate 100 mg tablet 100 mg PO QAM clonidine HCl 0.1 mg tablet 0.1 mg PO BEDTIME PRN (Reason: Blood Pressure) Milk of Magnesia 400 mg/5 mL Suspension 30 ml PO BID PRN (Reason: Constipation) multivitamin Liquid 15 ml PO DAILY trazodone 50 mg tablet 25 mg PO BEDTIME PRN (Reason: Sleep) Nu-Salt See Rx Instructions .ROUTE .COMPLEX Rx Instructions: prn hydrocodone-acetaminophen 5-325 mg tablet 1 tab PO Q6H PRN (Reason: pain) Qty: 14 0RF ondansetron 4 mg tablet,disintegrating 4 mg PO Q6H PRN (Reason: nausea and vomiting) Qty: 14 0RF hydrocodone-acetaminophen 5-325 mg tablet 1 tab PO Q6H PRN (Reason: pain) Qty: 14 0RF Discharge Orders: Discharge ED (Routine); Ordered 01/24/23 Ordered By: Yamil Sharif Referrals: Antonio Alvarado MD [Primary Care Provider] - 1-3 days Discharge Diet: Advance as tolerated Discharge Activity: Resume usual activity Patient Instructions: Alcohol Intoxication (ED), Abdominal Pain (ED) Coding Level of Care Code 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
[2023-01-24 02:58] LABS: Basophils % 0.7 %; Eosinophils % 0.2 %; Hematocrit 40.2 % (42.0-52.0); Lymphocytes # 2.3 10^3/uL (0.8-4.8); Lymphocytes % 54.1 %; Mean Corpuscular HGB Conc 34.8 g/dL (30.0-36.0); Mean Corpuscular Hemoglobin 32.6 pg (28.0-34.0); Mean Corpuscular Volume 93.7 fl (80-94); Mean Platelet Volume 9.4 fL (7.4-10.4); Monocytes # 0.5 10^3/uL (0.2-0.9); Monocytes % 11.5 %; Neutrophils # 1.39 10^3/uL (1.8-7.7); Neutrophils % 33.5 %; Nucleated Red Blood Cells % 0 %; Platelet Count 136 10^3/cmm (130-400); Red Blood Count 4.29 10^6/uL (4.1-5.3); White Blood Count 4.2 10^3/uL (4.0-10.0)
[2023-01-24] MEDS: metoclopramide 5 mg/mL SDV 2 mL 10 MG IVP (03:05)
[2023-01-24] MEDS: sodium chloride 0.9% 1,000 ML 999 ML IV (03:09)
[2023-01-24] MEDS: diphenhydrAMINE 50 mg/mL SDV 1mL IVP (03:09)
[2023-01-24 03:22] LABS: Alanine Aminotransferase 115 U/L (0-41); Albumin Level 4.4 g/dL (3.5-5.2); Alkaline Phosphatase 93 U/L (40-130); Anion Gap 24.1 (5-19); Aspartate Amino Transferase 118 U/L (0-40); Blood Urea Nitrogen 6 mg/dL (6-20); Carbon Dioxide 20 mmol/L (22-29); Chloride 89 mmol/L (98-107); Globulin 3.1 g/dL (1.3-4.6); Glomerular Filtration Rate 156.1 mL/min (90-130); Glucose 106 mg/dL (65-115); Lipase 85 U/L (13-60); Osmolality Calculated 266 mOsm/kg (285-295); Potassium 4.1 mmol/L (3.5-5.1); Sodium 129 mmol/L (136-145); Total Bilirubin 0.4 mg/dL (0.15-1.2); Total Protein 7.5 g/dL (6.6-8.7)
[2023-01-24 03:29] LABS: Alcohol Level 390 mg/dL (0-10)
[2023-01-24 03:43] VITALS: BP 142/98; PULSE 95; O2SAT 95
[2023-01-24 03:51] VITALS: O2SAT 97
[2023-01-24 04:11] VITALS: BP 142/98; PULSE 98; RESP 16; O2SAT 97
== END 2023-01-24 04:13 | disposition home or self-care (01) ==
PROVIDERS: Emergency Provider Emergency Medicine; PCP Family Medicine Adult Medicine
DX: R10.9 Unspecified abdominal pain (principal); F10.129 Alcohol abuse with intoxication, unspecified; Y90.8 Blood alcohol level of 240 mg/100 ml or more; E78.5 Hyperlipidemia, unspecified; I10 Essential (primary) hypertension
CPT/HCPCS: 80053; 80307; 83690; 85025; 96361; 96374; 96375; 99284; J1200; J2765; J3411; J7030

== ENCOUNTER 2023-02-14 09:29 | Emergency (ER) | payer MEDICAID, SELFPAY ==
[2023-02-14 09:32] VITALS: BP 129/92; PULSE 121; RESP 22; TEMP 36.8; O2SAT 100; BMI 25.0
--- NOTE | 2023-02-14 09:54 | CT_ITS ---
WS: [id number] CT ABDOMEN PELVIS TECHNIQUE: Contrast-enhanced CT of the abdomen and pelvis with coronal and sagittal reformatted image s. CLINICAL INFORMATION: abdominal pain, n/v, history of pancreatitis COMPARISON: CT January 09, 2023 DLP: 847.[address] scans at [facility] use at least one of these dose optimization techniques: automated e xposure control; mA and/or kV adjustment per patient size (includes targeted exams where dose is matc hed to clinical indication); or iterative reconstruction. FINDINGS: Hepatomegaly. Diffuse fatty infiltration liver. Normal spleen. Lung bases are well aerated. Normal po rtal vein and splenic vein. Adrenal glands are normal. Normal renal parenchymal enhancement. No hydro nephrosis. Normal caliber abdominal aorta. Celiac and SMA are patent. Normal sigmoid colon. No high-grade small or obstruction. Normal appendix in the RIGHT lower quadrant . No evidence of acute appendicitis. Enhancing lesion inferior RIGHT hepatic lobe unchanged likely he mangioma measuring 2.2 CM. Previous changes of pancreatitis improved compared to previous. No evidence of pancreatic necrosis or pseudocyst. No evidence of progressed pancreatitis. Diffuse submucosal enhancement involving the sto mach mucosa proximal duodenum can be seen with gastroduodenitis. CT/CT abdomen pelvis w con* [id number] IMPRESSION: 1. Previously described findings of pancreatitis have improved compared to pre vious and nearly resolved. No evidence of pancreatic necrosis or pseudocyst. 2. Diffuse fatty infiltration liver with hepatomegaly. 3. Stable suspected cavernous hemangioma inferior RIGHT hepatic lobe measuring 2.2 CM. 4. Diffuse gastric mucosal enhancement suspicious for gastritis extending into the duodenum with duodenitis. 5. Normal appendix in the RIGHT lower quadrant. 6. No other changes compared to previous
--- NOTE | 2023-02-14 09:57 | W.ED.ABDPA2 ---
Documented by User: ROBERTO Duncan 02/15/23 07:18 HPI - Abdominal Pain General: Chief Complaint: Abdominal Pain Stated Complaint: ABD PAIN Time Seen by Provider: 02/14/23 09:33 History of Present Illness: Patient is a 32-year-old male that comes to the ED with abdominal pain, nausea and vomiting. Patient has a history of pancreatitis. Patient's symptoms started approximately 3 days ago. He describes his this abdominal pain similar to his past pancreatitis. Abdominal pain is located in the central upper abdomen and epigastric region. He rates the pain currently a 10 out of 10. Pain radiates to his back. Pain worsens whenever he tries to eat or drink anything. Denies any fevers. Patient says he has had decreased urine output since he has not been able to keep any fluids down. Associated Symptoms: Reports nausea and vomiting; Denies chills, constipation, diarrhea, dysuria, fever(s), hematochezia and hematuria Review of Systems Const: Denies: fever(s), chills or fatigue Eyes: Denies: change in vision or eye discomfort ENMT: Denies: throat pain, odynophagia, nasal discharge or nasal congestion Card: Denies: chest pain, palpitations, edema, swelling of feet/ankles, dyspnea on exertion or orthopnea Resp: Denies: dyspnea, productive cough or non-productive cough GI: Reports: abdominal pain, nausea and vomiting; Denies: diarrhea, constipation or hematochezia : Reports: oliguria; Denies: flank pain, difficulty urinating, dysuria or hematuria Musc: Denies: neck pain, back pain or extremity swelling Skin/Breast: Denies: rash or new lesions Neuro: Denies: headache(s), numbness in extremities or weakness in extremities PFSH ED PFSH: Medical History Acute on chronic pancreatitis Acute posttraumatic stress disorder Alcohol abuse Anxiety and depression GERD (gastroesophageal reflux disease) High anion gap metabolic acidosis Hyperlipidemia Hypertension Marital/partner relational problem Surgical History No pertinent past surgical history Family History Father Hypertension Social History Smoking and tobacco status: never smoked Alcohol intake: current Alcohol intake frequency: 0-2 Drinks per Day Substance/Drug Use: never Marital status: Number of children: 5 Current occupational status: employed Current gender identity: Male Physical Exam Const: COMMON NORMALS: patient oriented x3 and alert GENERAL APPEARANCE: cooperative HENMT: COMMON NORMALS: normocephalic HEAD & SCALP: normocephalic MOUTH: Normal oral and palatal mucosa present THROAT: posterior oropharynx normal and uvula midline Neck/C-Spine: COMMON NORMALS: supple GENERAL: Yes normal visual inspection Resp: COMMON NORMALS: normal respiratory effort, No retractions, No use of accessory muscles and clear to auscultation bilaterally AUSCULTATION: clear to auscultation bilaterally Cardio: COMMON NORMALS: regular rate, regular rhythm, S1 normal heart sound present, S2 normal heart sound present, No gallops present (Cardio), No clicks present (Cardio), No murmurs present (Cardio) and Peripheral pulses 2+ throughout RATE: regular rate RHYTHM: regular rhythm HEART SOUNDS: S1 normal heart sound present and S2 normal heart sound present PERIPHERAL PULSES: Peripheral pulses 2+ throughout GI: COMMON NORMALS: Normal to inspection, nondistended, normoactive bowel sounds present, Soft to palpation and no masses PALPATION: Yes Soft to palpation and Yes Tenderness to palpation present (GI) Details: other (Central upper abdomen and epigastric region tenderness) : COMMON NORMALS: Yes no CVA tenderness BLADDER/KIDNEY EXAM: Yes no CVA tenderness Back/Pelvis: COMMON NORMALS: no CVA tenderness Extremity: COMMON NORMALS: normal to inspection Neuro: COMMON NORMALS: patient oriented x3 SENSORIUM/ORIENTATION: Yes alert GAIT: Yes Normal gait present Skin: GENERAL SKIN EXAM: dry skin Course Vital Signs: Vital signs: Vital Signs Temperature 98.3 F 02/14/23 09:32 Pulse Rate 121 H 02/14/23 09:32 Respiratory Rate 22 H 02/14/23 09:32 Blood Pressure 129/92 02/14/23 12:30 Pulse Oximetry 98 02/14/23 11:30 Oxygen Delivery Me thod Room Air 02/14/23 09:32 MDM - Abdominal Pain Medical Decision Making Patient is a 32-year-old male that comes to the ED with abdominal pain, nausea and vomiting. Patient has a history of pancreatitis. Patient's symptoms started approximately 3 days ago. He describes his this abdominal pain similar to his past pancreatitis. Abdominal pain is located in the central upper abdomen and epigastric region. He rates the pain currently a 10 out of 10. Pain radiates to his back. Pain worsens whenever he tries to eat or drink anything. Denies any fevers. Patient says he has had decreased urine output since he has not been able to keep any fluids down. Pulse 120s but rest of vitals are stable. Patient appears nontoxic and in no acute distress. He has some generalized central abdominal tenderness but rest of exam is benign. Lipase 197 but the rest of CBC and CMP are unremarkable and white blood cell count is 5.1. CT of abdomen pelvis showed an improvement in pancreatitis compared to last CT exam and no evidence of necrosis or pseudocyst. Patient was given 2 L of IV fluids, pain meds and nausea meds. His symptoms resolved and he was able to tolerate p.o. fluids. He was diagnosed with pancreatitis and was stable for outpatient treatment. He was sent home with a prescription for pain med and nausea med. He was told to do a clear liquid diet for the next 24 to 48 hours and slowly advance diet as tolerated. Patient understood and agreed with plan. Lab Data I reviewed the patient's lab results. 02/14/23 10:00 02/14/23 10:00 Labs/Radiology: Radiology Impressions Abdomen/Pelvis CT 02/14/23 09:54 IMPRESSION: 1. Previously described findings of pancreatitis have improved compared to previous and nearly resolved. No evidence of pancreatic necrosis or pseudocyst. 2. Diffuse fatty infiltration liver with hepatomegaly. 3. Stable suspected cavernous hemangioma inferior RIGHT hepatic lobe measuring 2.2 CM. 4. Diffuse gastric mucosal enhancement suspicious for gastritis extending into the duodenum with duodenitis. 5. Normal appendix in the RIGHT lower quadrant. 6. No other changes compared to previous Laboratory Results WBC 5.1 10^3/uL (4.0-10.0) 02/14/23 10:00 RBC 4.18 10^6/uL (4.1-5.3) 02/14/23 10:00 Hgb 14.3 g/dL (11.7-16.6) 02/14/23 10:00 Hct 41.1 % (42.0-52.0) L 02/14/23 10:00 MCV 98.3 fl (80-94) H 02/14/23 10:00 MCH 34.2 pg (28.0-34.0) H 02/14/23 10:00 MCHC 34.8 g/dL (30.0-36.0) 02/14/23 10:00 RDW 13.2 % (12.1-15.1) 02/14/23 10:00 Plt Count 117 10^3/cmm (130-400) L 02/14/23 10:00 MPV 10.7 fL (7.4-10.4) H 02/14/23 10:00 Neut % (Auto) 60.6 % 02/14/23 10:00 Lymph % (Auto) 28.1 % 02/14/23 10:00 Conway % (Auto) 10.1 % 02/14/23 10:00 Eos % (Auto) 0.2 % 02/14/23 10:00 Baso % (Auto) 0.6 % 02/14/23 10:00 Neut # (Auto) 3.11 10^3/uL (1.8-7.7) 02/14/23 10:00 Lymph # (Auto) 1.4 10^3/uL (0.8-4.8) 02/14/23 10:00 [place] # (Auto) 0.5 10^3/uL (0.2-0.9) 02/14/23 10:00 Eos # (Auto) 0.0 10^3/uL (0.0-0.8) 02/14/23 10:00 Baso # (Auto) 0.0 10^3/uL (0.0-0.1) 02/14/23 10:00 Nucleated RBC % (auto) 0 % 02/14/23 10:00 Nucleated RBCs # 0.0 /100WBC 02/14/23 10:00 Specimen Type Arterial 02/14/23 10:37 Sample Site Radial, left 02/14/23 10:37 ABG pH 7.37 (7.35-7.45) 02/14/23 10:37 ABG pCO2 36.1 mmHg (35-45) 02/14/23 10:37 ABG pO2 86.8 mmHg (80.0-100.0) 02/14/23 10:37 ABG HCO3 21.1 mmol/L (22-26) L 02/14/23 10:37 ABG O2 Saturation 97.3 05/09/23 10:37 ABG Base Excess -3.6 mmol/L (-2.0-2.0) L 02/14/23 10:37 Ricardo Test Pos 02/14/23 10:37 A-a O2 Gradient 2.3 mmHg (5-10) L 02/14/23 10:37 Hematocrit 39.8 % (42-52) L 02/14/23 10:37 Hgb O2 Saturation 94.8 % (95-100) L 02/14/23 10:37 Carboxyhemoglobin 1.6 %THgb (0.4-20.1) 02/14/23 10:37 Methemoglobin 0.9 % (0.4-1.5) 02/14/23 10:37 Total Hemoglobin 13.0 g/dL (14-18) L 02/14/23 10:37 Sodium 131.0 mmol/L (131-143) 02/14/23 10:37 Potassium 3.4 mmol/L (3.5-5.0) L 02/14/23 10:37 Glucose 82.0 mg/dL (70-115) 02/14/23 10:37 Ionized Calcium 1.2 mmol/L (1.1-1.4) 02/14/23 10:37 O2 Delivery Device None 02/14/23 10:37 FiO2 21.0 % 02/14/23 10:37 Knock Up Assembler ID Walci 02/14/23 10:37 Sodium 129 mmol/L (136-145) L 02/14/23 10:00 Potassium 3.5 mmol/L (3.5-5.1) 02/14/23 10:00 Chloride 82 mmol/L (98-107) L 02/14/23 10:00 Carbon Dioxide 18 mmol/L (22-29) L 02/14/23 10:00 Anion Gap 32.5 (5-19) H 02/14/23 10:00 BUN 28 mg/dL (6-20) H 02/14/23 10:00 Creatinine 1.1 mg/dL (0.7-1.2) 02/14/23 10:00 GFR Calculation 77.6 mL/min (90-130) L 02/14/23 10:00 Glucose 87 mg/dL (65-115) 02/14/23 10:00 Calculated Osmolality 273 mOsm/kg (285-295) L 02/14/23 10:00 Calcium 10.0 mg/dL (8.5-10.5) 02/14/23 10:00 Total Bilirubin 1.9 mg/dL (0.15-1.2) H 02/14/23 10:00 AST 138 U/L (0-40) H 02/14/23 10:00 ALT 110 U/L (0-41) H 02/14/23 10:00 Alkaline Phosphatase 95 U/L (40-130) 02/14/23 10:00 Total Protein 7.9 g/dL (6.6-8.7) 02/14/23 10:00 Albumin 5.1 g/dL (3.5-5.2) 02/14/23 10:00 Globulin 2.8 g/dL (1.3-4.6) 02/14/23 10:00 Lipase 197 U/L (13-60) H 02/14/23 10:00 Ethyl Alcohol < 10 mg/dL (0-10) 02/14/23 10:00 Discharge Plan Discharge Patient Disposition: Home Clinical Impression: Pancreatitis Condition: Stable Prescriptions: New ondansetron 4 mg tablet,disintegrating 4 mg PO Q8H PRN (Reason: nausea and vomiting) Qty: 20 0RF No Action digestive enzymes Tablet 1 tab PO .UP TO TWICE A DAY resveratrol 250 mg capsule 250 - 500 mg PO DAILY PRN (Reason: Inflammation) metoclopramide HCl [Reglan] 10 mg tablet 10 mg PO Q6H PRN (Reason: nausea and vomiting) Qty: 90 1RF omeprazole 40 mg capsule,delayed release(DR/EC) 40 mg PO QAM Qty: 90 0RF lisinopril 40 mg Tablet 40 mg PO QAM metoprolol tartrate 100 mg tablet 100 mg PO QAM clonidine HCl 0.1 mg tablet 0.1 mg PO BEDTIME PRN (Reason: Blood Pressure) Milk of Magnesia 400 mg/5 mL Suspension 30 ml PO BID PRN (Reason: Constipation) multivitamin Liquid 15 ml PO DAILY trazodone 50 mg tablet 25 mg PO BEDTIME PRN (Reason: Sleep) Nu-Salt See Rx Instructions .ROUTE .COMPLEX Rx Instructions: prn hydrocodone-acetaminophen 5-325 mg tablet 1 tab PO Q6H PRN (Reason: pain) Qty: 14 0RF ondansetron 4 mg tablet,disintegrating 4 mg PO Q6H PRN (Reason: nausea and vomiting) Qty: 14 0RF hydrocodone-acetaminophen 5-325 mg tablet 1 tab PO Q6H PRN (Reason: pain) Qty: 14 0RF ondansetron 4 mg tablet,disintegrating 4 mg PO Q6H PRN (Reason: nausea and vomiting) Qty: 14 0RF Discharge Orders: Discharge ED (Routine); Ordered 02/14/23 Ordered By: Compa Urbina Referrals: Antonio Alvarado MD [Primary Care Provider] - Discharge Diet: Advance as tolerated and Clear Liquid Discharge Activity: Increase activity as tolerated Patient Instructions: Pancreatitis (ED), Opioid Safety Activity Restrictions/Additional Instructions: Follow-up with medical provider as directed in the next 3 to 5 days for reevaluation. Clear liquid diet for the next 24 to 48 hours and slowly advance diet as tolerated. Take medications as prescribed. Return to the ER or your medical provider if condition worsens. Please read and understand discharge instructions. Thank you for choosing [facility] for your healthcare needs today. Please realize this is an emergency room and that we are providing you with a medical screening exam and this may not be complete and all inclusive of all the testing and or work up that you may need to determine your ailment or severity of your illness. It is very important that you follow up as instructed or that you return to the Emergency Department should you have concerns or if your condition changes or worsens in any way. Coding Level of Care Code ED Visual Merchandising Director for [facility] Documented by User: Igor Diaz DO 02/15/23 07:27 HPI - Abdominal Pain General: Chief Complaint: Abdominal Pain Stated Complaint: ABD PAIN Time Seen by Provider: 02/14/23 09:33 PFSH ED PFSH: Medical History Acute on chronic pancreatitis Acute posttraumatic stress disorder Alcohol abuse Anxiety and depression GERD (gastroesophageal reflux disease) High anion gap metabolic acidosis Hyperlipidemia Hypertension Marital/partner relational problem Surgical History No pertinent past surgical history Family History Father Hypertension Social History Smoking and tobacco status: never smoked Alcohol intake: current Alcohol intake frequency: 0-2 Drinks per Day Substance/Drug Use: never Marital status: Number of children: 5 Current occupational status: employed Current gender identity: Male Course Vital Signs: Vital signs: Vital Signs Temperature 98.3 F 02/14/23 09:32 Pulse Rate 121 H 02/14/23 09:32 Respiratory Rate 22 H 02/14/23 09:32 Blood Pressure 129/92 02/14/23 12:30 Pulse Oximetry 98 02/14/23 11:30 Oxygen Delivery Me thod Room Air 02/14/23 09:32 MDM - Abdominal Pain Medical Decision Making Patient is a 32-year-old male that comes to the ED with abdominal pain, nausea and vomiting. Patient has a history of pancreatitis. Patient's symptoms started approximately 3 days ago. He describes his this abdominal pain similar to his past pancreatitis. Abdominal pain is located in the central upper abdomen and epigastric region. He rates the pain currently a 10 out of 10. Pain radiates to his back. Pain worsens whenever he tries to eat or drink anything. Denies any fevers. Patient says he has had decreased urine output since he has not been able to keep any fluids down. Pulse 120s but rest of vitals are stable. Patient appears nontoxic and in no acute distress. He has some generalized central abdominal tenderness but rest of exam is benign. Lipase 197 but the rest of CBC and CMP are unremarkable and white blood cell count is 5.1. CT of abdomen pelvis showed an improvement in pancreatitis compared to last CT exam and no evidence of necrosis or pseudocyst. Patient was given 2 L of IV fluids, pain meds and nausea meds. His symptoms resolved and he was able to tolerate p.o. fluids. He was diagnosed with pancreatitis and was stable for outpatient treatment. He was sent home with a prescription for pain med and nausea med. He was told to do a clear liquid diet for the next 24 to 48 hours and slowly advance diet as tolerated. Patient understood and agreed with plan. Chart reviewed and patient discussed with midlevel. Agree with assessment and plan. Lab Data 02/14/23 10:00 02/14/23 10:00 Labs/Radiology: Radiology Impressions Abdomen/Pelvis CT 02/14/23 09:54 IMPRESSION: 1. Previously described findings of pancreatitis have improved compared to previous and nearly resolved. No evidence of pancreatic necrosis or pseudocyst. 2. Diffuse fatty infiltration liver with hepatomegaly. 3. Stable suspected cavernous hemangioma inferior RIGHT hepatic lobe measuring 2.2 CM. 4. Diffuse gastric mucosal enhancement suspicious for gastritis extending into the duodenum with duodenitis. 5. Normal appendix in the RIGHT lower quadrant. 6. No other changes compared to previous Laboratory Results WBC 5.1 10^3/uL (4.0-10.0) 02/14/23 10:00 RBC 4.18 10^6/uL (4.1-5.3) 02/14/23 10:00 Hgb 14.3 g/dL (11.7-16.6) 02/14/23 10:00 Hct 41.1 % (42.0-52.0) L 02/14/23 10:00 MCV 98.3 fl (80-94) H 02/14/23 10:00 MCH 34.2 pg (28.0-34.0) H 02/14/23 10:00 MCHC 34.8 g/dL (30.0-36.0) 02/14/23 10:00 RDW 13.2 % (12.1-15.1) 02/14/23 10:00 Plt Count 117 10^3/cmm (130-400) L 02/14/23 10:00 MPV 10.7 fL (7.4-10.4) H 02/14/23 10:00 Neut % (Auto) 60.6 % 02/14/23 10:00 Lymph % (Auto) 28.1 % 02/14/23 10:00 Conway % (Auto) 10.1 % 02/14/23 10:00 Eos % (Auto) 0.2 % 02/14/23 10:00 Baso % (Auto) 0.6 % 02/14/23 10:00 Neut # (Auto) 3.11 10^3/uL (1.8-7.7) 02/14/23 10:00 Lymph # (Auto) 1.4 10^3/uL (0.8-4.8) 02/14/23 10:00 Conway # (Auto) 0.5 10^3/uL (0.2-0.9) 02/14/23 10:00 Eos # (Auto) 0.0 10^3/uL (0.0-0.8) 02/14/23 10:00 Baso # (Auto) 0.0 10^3/uL (0.0-0.1) 02/14/23 10:00 Nucleated RBC % (auto) 0 % 02/14/23 10:00 Nucleated RBCs # 0.0 /100WBC 02/14/23 10:00 Specimen Type Arterial 02/14/23 10:37 Sample Site Radial, left 02/14/23 10:37 ABG pH 7.37 (7.35-7.45) 02/14/23 10:37 ABG pCO2 36.1 mmHg (35-45) 02/14/23 10:37 ABG pO2 86.8 mmHg (80.0-100.0) 02/14/23 10:37 ABG HCO3 21.1 mmol/L (22-26) L 02/14/23 10:37 ABG O2 Saturation 97.3 02/14/23 10:37 ABG Base Excess -3.6 mmol/L (-2.0-2.0) L 02/14/23 10:37 Ricardo Test Pos 02/14/23 10:37 A-a O2 Gradient 2.3 mmHg (5-10) L 02/14/23 10:37 Hematocrit 39.8 % (42-52) L 02/14/23 10:37 Hgb O2 Saturation 94.8 % (95-100) L 02/14/23 10:37 Carboxyhemoglobin 1.6 %THgb (0.4-20.1) 02/14/23 10:37 Methemoglobin 0.9 % (0.4-1.5) 02/14/23 10:37 Total Hemoglobin 13.0 g/dL (14-18) L 02/14/23 10:37 Sodium 131.0 mmol/L (131-143) 02/14/23 10:37 Potassium 3.4 mmol/L (3.5-5.0) L 02/14/23 10:37 Glucose 82.0 mg/dL (70-115) 02/14/23 10:37 Ionized Calcium 1.2 mmol/L (1.1-1.4) 02/14/23 10:37 O2 Delivery Device None 02/14/23 10:37 FiO2 21.0 % 02/14/23 10:37 Knock Up Assembler ID Walci 02/14/23 10:37 Sodium 129 mmol/L (136-145) L 02/14/23 10:00 Potassium 3.5 mmol/L (3.5-5.1) 02/14/23 10:00 Chloride 82 mmol/L (98-107) L 02/14/23 10:00 Carbon Dioxide 18 mmol/L (22-29) L 02/14/23 10:00 Anion Gap 32.5 (5-19) H 02/14/23 10:00 BUN 28 mg/dL (6-20) H 02/14/23 10:00 Creatinine 1.1 mg/dL (0.7-1.2) 02/14/23 10:00 GFR Calculation 77.6 mL/min (90-130) L 02/14/23 10:00 Glucose 87 mg/dL (65-115) 02/14/23 10:00 Calculated Osmolality 273 mOsm/kg (285-295) L 02/14/23 10:00 Calcium 10.0 mg/dL (8.5-10.5) 02/14/23 10:00 Total Bilirubin 1.9 mg/dL (0.15-1.2) H 02/14/23 10:00 AST 138 U/L (0-40) H 02/14/23 10:00 ALT 110 U/L (0-41) H 02/14/23 10:00 Alkaline Phosphatase 95 U/L (40-130) 02/14/23 10:00 Total Protein 7.9 g/dL (6.6-8.7) 02/14/23 10:00 Albumin 5.1 g/dL (3.5-5.2) 02/14/23 10:00 Globulin 2.8 g/dL (1.3-4.6) 02/14/23 10:00 Lipase 197 U/L (13-60) H 02/14/23 10:00 Ethyl Alcohol < 10 mg/dL (0-10) 02/14/23 10:00 Discharge Plan Discharge Patient Disposition: Home Clinical Impression: Pancreatitis Condition: Stable Prescriptions: New ondansetron 4 mg tablet,disintegrating 4 mg PO Q8H PRN (Reason: nausea and vomiting) Qty: 20 0RF No Action digestive enzymes Tablet 1 tab PO .UP TO TWICE A DAY resveratrol 250 mg capsule 250 - 500 mg PO DAILY PRN (Reason: Inflammation) metoclopramide HCl [Reglan] 10 mg tablet 10 mg PO Q6H PRN (Reason: nausea and vomiting) Qty: 90 1RF omeprazole 40 mg capsule,delayed release(DR/EC) 40 mg PO QAM Qty: 90 0RF lisinopril 40 mg Tablet 40 mg PO QAM metoprolol tartrate 100 mg tablet 100 mg PO QAM clonidine HCl 0.1 mg tablet 0.1 mg PO BEDTIME PRN (Reason: Blood Pressure) Milk of Magnesia 400 mg/5 mL Suspension 30 ml PO BID PRN (Reason: Constipation) multivitamin Liquid 15 ml PO DAILY trazodone 50 mg tablet 25 mg PO BEDTIME PRN (Reason: Sleep) Nu-Salt See Rx Instructions .ROUTE .COMPLEX Rx Instructions: prn hydrocodone-acetaminophen 5-325 mg tablet 1 tab PO Q6H PRN (Reason: pain) Qty: 14 0RF ondansetron 4 mg tablet,disintegrating 4 mg PO Q6H PRN (Reason: nausea and vomiting) Qty: 14 0RF hydrocodone-acetaminophen 5-325 mg tablet 1 tab PO Q6H PRN (Reason: pain) Qty: 14 0RF ondansetron 4 mg tablet,disintegrating 4 mg PO Q6H PRN (Reason: nausea and vomiting) Qty: 14 0RF Discharge Orders: Discharge ED (Routine); Ordered 02/14/23 Ordered By: Compa Urbina Referrals: Antonio Alvarado MD [Primary Care Provider] - Discharge Diet: Advance as tolerated and Clear Liquid Discharge Activity: Increase activity as tolerated Patient Instructions: Pancreatitis (ED), Opioid Safety Activity Restrictions/Additional Instructions: Follow-up with medical provider as directed in the next 3 to 5 days for reevaluation. Clear liquid diet for the next 24 to 48 hours and slowly advance diet as tolerated. Take medications as prescribed. Return to the ER or your medical provider if condition worsens. Please read and understand discharge instructions. Thank you for choosing [facility] for your healthcare needs today. Please realize this is an emergency room and that we are providing you with a medical screening exam and this may not be complete and all inclusive of all the testing and or work up that you may need to determine your ailment or severity of your illness. It is very important that you follow up as instructed or that you return to the Emergency Department should you have concerns or if your condition changes or worsens in any way. Coding Level of Care Code ED Visual Merchandising Director for [facility]
[2023-02-14 10:15] LABS: Basophils % 0.6 %; Eosinophils % 0.2 %; Hematocrit 41.1 % (42.0-52.0); Hemoglobin 14.3 g/dL (11.7-16.6); Lymphocytes # 1.4 10^3/uL (0.8-4.8); Lymphocytes % 28.1 %; Mean Corpuscular HGB Conc 34.8 g/dL (30.0-36.0); Mean Corpuscular Hemoglobin 34.2 pg (28.0-34.0); Mean Corpuscular Volume 98.3 fl (80-94); Mean Platelet Volume 10.7 fL (7.4-10.4); Monocytes # 0.5 10^3/uL (0.2-0.9); Monocytes % 10.1 %; Neutrophils # 3.11 10^3/uL (1.8-7.7); Neutrophils % 60.6 %; Nucleated Red Blood Cells % 0 %; Platelet Count 117 10^3/cmm (130-400); Red Blood Count 4.18 10^6/uL (4.1-5.3); Red Cell Distribution Width 13.2 % (12.1-15.1); White Blood Count 5.1 10^3/uL (4.0-10.0)
[2023-02-14] MEDS: HYDROmorphone 1 mg/mL INJ 1 mL IVP (10:16)
[2023-02-14] MEDS: metoclopramide 5 mg/mL SDV 2 mL 10 MG IVP (10:16)
[2023-02-14] MEDS: sodium chloride 0.9% 1,000 ML 999 ML IV ×2 (10:17→10:59)
[2023-02-14] MEDS: iohexol 350 mg/mL 500 mL Btl (per mL) IV (10:26)
[2023-02-14 10:34] LABS: Alanine Aminotransferase 110 U/L (0-41); Albumin Level 5.1 g/dL (3.5-5.2); Alkaline Phosphatase 95 U/L (40-130); Anion Gap 32.5 (5-19); Aspartate Amino Transferase 138 U/L (0-40); Blood Urea Nitrogen 28 mg/dL (6-20); Carbon Dioxide 18 mmol/L (22-29); Chloride 82 mmol/L (98-107); Globulin 2.8 g/dL (1.3-4.6); Glomerular Filtration Rate 77.6 mL/min (90-130); Glucose 87 mg/dL (65-115); Lipase 197 U/L (13-60); Osmolality Calculated 273 mOsm/kg (285-295); Potassium 3.5 mmol/L (3.5-5.1); Sodium 129 mmol/L (136-145); Total Bilirubin 1.9 mg/dL (0.15-1.2); Total Protein 7.9 g/dL (6.6-8.7)
[2023-02-14 10:36] LABS: Alcohol Level < 10 mg/dL (0-10)
[2023-02-14 10:37] VITALS: BP 129/92; O2SAT 94
[2023-02-14 10:48] LABS: ABG PCO2 36.1 mmHg (35-45); ABG PH Result 7.37 (7.35-7.45); Alveolar-Arterial Oxygen Gradi 2.3 mmHg (5-10); Arterial Blood Gas Hematocrit 39.8 % (42-52); Base Excess ABG -3.6 mmol/L (-2.0-2.0); Blood Gas Allen Test Pos; Blood Gas Operator Identificat WALCI; Blood Gas Sample Site Radial, left; Blood Gas Sample Type Arterial; Carboxyhemoglobin 1.6 %THgb (0.4-20.1); HCO3 ABG 21.1 mmol/L (22-26); HGB O2 Sat 94.8 % (95-100); Ionized Calcium Level - ABG 1.2 mmol/L (1.1-1.4); Methemoglobin 0.9 % (0.4-1.5); Oxygen Saturation ABG 97.3; PO2 ABG 86.8 mmHg (80.0-100.0); Potassium Level - ABG 3.4 mmol/L (3.5-5.0)
[2023-02-14 11:00] VITALS: BP 129/92; O2SAT 97
[2023-02-14 11:30] VITALS: BP 129/92; O2SAT 98
[2023-02-14] MEDS: ondansetron 2 mg/ML SDV 2 mL 4 MG IVP (11:51)
[2023-02-14 12:00] VITALS: BP 129/92
[2023-02-14 12:30] VITALS: BP 129/92
[2023-02-14] MEDS: morphine 4 mg/mL SDV 1 mL IVP (12:50)
== END 2023-02-14 12:51 | disposition home or self-care (01) ==
PROVIDERS: Emergency Provider Physician Assistant; PCP Family Medicine Adult Medicine
DX: K85.90 Acute pancreatitis without necrosis or infection, unspecified (principal); E78.5 Hyperlipidemia, unspecified; I10 Essential (primary) hypertension
CPT/HCPCS: 36600; 74177; 80051; 80053; 80307; 82330; 82805; 83690; 85025; 96361; 96374; 96375; 99285; J1170; J2270; J2405; J2765; J7030; Q9967

== ENCOUNTER 2023-02-14 23:57 | Inpatient (IN) | payer MEDICAID, SELFPAY ==
[2023-02-14 23:58] VITALS: BP 137/84; PULSE 119; RESP 18; TEMP 36.6; O2SAT 98; BMI 33.9
[2023-02-15] VITALS (17 sets, daily range): BP systolic 121–163; BP diastolic 84–111; PULSE 72–104; RESP 16–20; TEMP 36.5–37.2; O2SAT 94–99
[2023-02-15] MEDS: morphine 4 mg/mL SDV 1 mL IVP (00:09)
[2023-02-15] MEDS: LORazepam 2 mg/mL INJ 1 mL IVP (00:10)
[2023-02-15 00:11] LABS: Basophils % 0.2 %; Eosinophils % 0.2 %; Hemoglobin 14.9 g/dL (11.7-16.6); Lymphocytes # 1.3 10^3/uL (0.8-4.8); Lymphocytes % 19.8 %; Mean Corpuscular HGB Conc 34.7 g/dL (30.0-36.0); Mean Corpuscular Hemoglobin 34.5 pg (28.0-34.0); Mean Corpuscular Volume 99.5 fl (80-94); Mean Platelet Volume 10.6 fL (7.4-10.4); Monocytes # 0.5 10^3/uL (0.2-0.9); Monocytes % 8.3 %; Neutrophils # 4.52 10^3/uL (1.8-7.7); Neutrophils % 71.2 %; Nucleated Red Blood Cells % 0 %; Platelet Count 108 10^3/cmm (130-400); Red Blood Count 4.32 10^6/uL (4.1-5.3); Red Cell Distribution Width 12.8 % (12.1-15.1); White Blood Count 6.4 10^3/uL (4.0-10.0)
[2023-02-15] MEDS: sodium chloride 0.9% 1,000 ML 999 ML IV ×3 (00:11→01:58)
--- NOTE | 2023-02-15 00:11 | ED_ITS ---
HPI - Abdominal Pain General: Chief Complaint: Abdominal Pain Stated Complaint: abd pain Time Seen by Provider: 02/14/23 23:57 Source: patient and EMS Mode of arrival: EMS Limitations: no limitations History of Present Illness: 32-year-old male who is well-known to the ER he has a history of alcoholism along with chronic pancreatitis he was seen earlier today CT scan showed improving pancreatitis he states that ever since leaving he is having increased pain along with vomiting. He states he had multiple episodes of vomiting he is vomiting currently. He denies any fevers Associated Symptoms: Reports nausea and vomiting; Denies chills, diarrhea, dysuria and fever(s) Review of Systems Const: Denies: fever(s) or chills Eyes: Denies: eye discomfort ENMT: Denies: throat pain or dental pain Card: Denies: chest pain Resp: Denies: dyspnea GI: Reports: abdominal pain, nausea and vomiting; Denies: diarrhea : Denies: dysuria Musc: Denies: neck pain or back pain Skin/Breast: Denies: rash Neuro: Denies: headache(s) PFSH ED PFSH: Medical History Acute on chronic pancreatitis Acute posttraumatic stress disorder Alcohol abuse Anxiety and depression GERD (gastroesophageal reflux disease) High anion gap metabolic acidosis Hyperlipidemia Hypertension Marital/partner relational problem Surgical History No pertinent past surgical history Family History Father Hypertension Social History Smoking and tobacco status: never smoked Alcohol intake: current Alcohol intake frequency: 0-2 Drinks per Day Substance/Drug Use: never Marital status: Number of children: 5 Current occupational status: employed Current gender identity: Male Physical Exam Const: COMMON NORMALS: patient oriented x3 GENERAL APPEARANCE: ill appearing HENMT: COMMON NORMALS: normocephalic and atraumatic HEAD & SCALP: normocephalic and atraumatic Eye: COMMON NORMALS: conjunctivae normal CONJUNCTIVA: Yes conjunctivae normal Neck/C-Spine: COMMON NORMALS: full ROM and supple Chest: COMMONS NORMALS: normal inspection of the chest Resp: COMMON NORMALS: normal respiratory effort Cardio: COMMON NORMALS: regular rhythm and No murmurs present (Cardio) RATE: tachycardic RHYTHM: regular rhythm GI: COMMON NORMALS: Normal to inspection, nondistended, normoactive bowel sounds present, Soft to palpation, non-tender and no masses PALPATION: Yes Soft to palpation Extremity: COMMON NORMALS: normal to inspection and full ROM Neuro: COMMON NORMALS: patient oriented x3, moves all extremities and no focal motor deficits Psych: COMMON NORMALS: mental status grossly normal, Normal thought process present and cooperative THOUGHT PROCESS: Normal thought process present Skin: COMMON NORMALS: no rashes or lesions noted and no wounds GENERAL SKIN EXAM: no rashes or lesions noted Course Vital Signs: Vital signs: Vital Signs Temperature 98 F 02/14/23 23:58 Pulse Rate 91 02/15/23 00:50 Respiratory Rate 20 H 02/15/23 00:37 Blood Pressure 121/89 02/15/23 00:50 Pulse Oximetry 95 02/15/23 00:50 Oxygen Delivery Me thod Room Air 02/15/23 00:50 MDM - Abdominal Pain Medical Decision Making Patient presents here with abdominal pain vomiting his lipase level is now in the 1999's likely with acute pancreatitis he still improved here after pain meds does have an anion gap likely from dehydration from vomiting will admit at this time give him fluids along with pain control spoke to the hospitalist had a CT earlier today does not need a repeat CT at this time. Lab Data I reviewed the patient's lab results. 02/15/23 00:05 02/15/23 00:05 Labs/Radiology: Laboratory Results WBC 6.4 10^3/uL (4.0-10.0) 02/15/23 00:05 RBC 4.32 10^6/uL (4.1-5.3) 02/15/23 00:05 Hgb 14.9 g/dL (11.7-16.6) 02/15/23 00:05 Hct 43.0 % (42.0-52.0) 02/15/23 00:05 MCV 99.5 fl (80-94) H 02/15/23 00:05 MCH 34.5 pg (28.0-34.0) H 02/15/23 00:05 MCHC 34.7 g/dL (30.0-36.0) 02/15/23 00:05 RDW 12.8 % (12.1-15.1) 02/15/23 00:05 Plt Count 108 10^3/cmm (130-400) L 02/15/23 00:05 MPV 10.6 fL (7.4-10.4) H 02/15/23 00:05 Neut % (Auto) 71.2 % 02/15/23 00:05 Lymph % (Auto) 19.8 % 02/15/23 00:05 [place] % (Auto) 8.3 % 02/15/23 00:05 Eos % (Auto) 0.2 % 02/15/23 00:05 Baso % (Auto) 0.2 % 02/15/23 00:05 Neut # (Auto) 4.52 10^3/uL (1.8-7.7) 02/15/23 00:05 Lymph # (Auto) 1.3 10^3/uL (0.8-4.8) 02/15/23 00:05 [place] # (Auto) 0.5 10^3/uL (0.2-0.9) 02/15/23 00:05 Eos # (Auto) 0.0 10^3/uL (0.0-0.8) 02/15/23 00:05 Baso # (Auto) 0.0 10^3/uL (0.0-0.1) 02/15/23 00:05 Nucleated RBC % (auto) 0 % 02/15/23 00:05 Nucleated RBCs # 0.0 /100WBC 02/15/23 00:05 Specimen Type Arterial 02/15/23 00:17 Sample Site Brachial, right 02/15/23 00:17 ABG pH 7.38 (7.35-7.45) 02/15/23 00:17 ABG pCO2 30.2 mmHg (35-45) L 02/15/23 00:17 ABG pO2 78.8 mmHg (80.0-100.0) L 02/15/23 00:17 ABG HCO3 17.9 mmol/L (22-26) L 02/15/23 00:17 ABG Base Excess -6.0 mmol/L (-2.0-2.0) L 02/15/23 00:17 Ricardo Test N/a 02/15/23 00:17 Hematocrit 41.7 % (42-52) L 02/15/23 00:17 O2 Delivery Device None 02/15/23 00:17 FiO2 21.0 % 02/15/23 00:17 Machine Deburrer ID Caryl 02/15/23 00:17 Sodium 134 mmol/L (136-145) L 02/15/23 00:05 Potassium 3.4 mmol/L (3.5-5.1) L 02/15/23 00:05 Chloride 90 mmol/L (98-107) L 02/15/23 00:05 Carbon Dioxide 16 mmol/L (22-29) L 02/15/23 00:05 Anion Gap 31.4 (5-19) H 02/15/23 00:05 BUN 21 mg/dL (6-20) H 02/15/23 00:05 Creatinine 0.9 mg/dL (0.7-1.2) 02/15/23 00:05 GFR Calculation 97.8 mL/min (90-130) 02/15/23 00:05 Glucose 98 mg/dL (65-115) 02/15/23 00:05 Calculated Osmolality 281 mOsm/kg (285-295) L 02/15/23 00:05 Lactic Acid 2.2 mmol/L (0.5-2.2) 02/15/23 00:05 Calcium 9.7 mg/dL (8.5-10.5) 02/15/23 00:05 Total Bilirubin 2.2 mg/dL (0.15-1.2) H 02/15/23 00:05 AST 114 U/L (0-40) H 02/15/23 00:05 ALT 100 U/L (0-41) H 02/15/23 00:05 Alkaline Phosphatase 92 U/L (40-130) 02/15/23 00:05 Total Protein 7.5 g/dL (6.6-8.7) 02/15/23 00:05 Albumin 4.9 g/dL (3.5-5.2) 02/15/23 00:05 Globulin 2.6 g/dL (1.3-4.6) 02/15/23 00:05 Lipase 2767 U/L (13-60) H 02/15/23 00:05 Ethyl Alcohol < 10 mg/dL (0-10) 02/15/23 00:05 Serum Ketones Positive (Negative) H 02/15/23 00:05 EKG Data EKG 1: I personally reviewed and interpreted this EKG as follows: EKG interpretation date: 02/15/23 EKG interpretation time: 00:14 Interpretation: nsr hr [address] or t wave abnormalities qrs 88 qtc 398 Discharge Plan Discharge Patient Disposition: Admitted As Inpatient Clinical Impression: Pancreatitis Condition: Stable Coding Level of Care Code ED Water Pump Installer for Al Duran
[2023-02-15 00:26] LABS: Alanine Aminotransferase 100 U/L (0-41); Albumin Level 4.9 g/dL (3.5-5.2); Alkaline Phosphatase 92 U/L (40-130); Anion Gap 31.4 (5-19); Aspartate Amino Transferase 114 U/L (0-40); Blood Urea Nitrogen 21 mg/dL (6-20); Calcium 9.7 mg/dL (8.5-10.5); Carbon Dioxide 16 mmol/L (22-29); Chloride 90 mmol/L (98-107); Globulin 2.6 g/dL (1.3-4.6); Glomerular Filtration Rate 97.8 mL/min (90-130); Glucose 98 mg/dL (65-115); Osmolality Calculated 281 mOsm/kg (285-295); Potassium 3.4 mmol/L (3.5-5.1); Sodium 134 mmol/L (136-145); Total Bilirubin 2.2 mg/dL (0.15-1.2); Total Protein 7.5 g/dL (6.6-8.7)
[2023-02-15 00:27] LABS: Alcohol Level < 10 mg/dL (0-10)
[2023-02-15 00:29] LABS: ABG PCO2 30.2 mmHg (35-45); ABG PH Result 7.38 (7.35-7.45); Arterial Blood Gas Hematocrit 41.7 % (42-52); Blood Gas Sample Site Brachial, right; Blood Gas Sample Type Arterial; HCO3 ABG 17.9 mmol/L (22-26); PO2 ABG 78.8 mmHg (80.0-100.0)
[2023-02-15] MEDS: HYDROmorphone 1 mg/mL INJ 1 mL IVP ×7 (00:37→22:03)
[2023-02-15 00:39] LABS: Lipase 2767 U/L (13-60)
[2023-02-15 00:48] LABS: Lactic Sepsis W/Reflex 2.2 mmol/L (0.5-2.2)
[2023-02-15 00:58] LABS: Ketone (Acetest) Serum Positive (Negative)
--- NOTE | 2023-02-15 01:50 | PM.HP ---
Providers/Chief Complaint Admitting Physician: Elizabeth Ramey MD Primary Care Provider: Antonio Alvarado MD Chief Complaint: abd pain History of Present Illness Buddy Cowan is a 32 year old male with past medical history of chronic pancreatitis, PTSD, alcohol abuse, anxiety, depression, GERD, hyperlipidemia, hypertension presented to the hospital today for complaint of nausea vomiting and not being able to keep anything down. He states he has a history of chronic pancreatitis and typically he can manage it at home when it flares up however at this time he could not manage it by himself and had to come to the hospital. He states he has been continuously having retching nausea and vomiting and cannot even tolerate water orally. He states he did have 2 bowel movements which resulted in did not experience any diarrhea. He says from the repeated vomiting he has been now experiencing epigastric pain along with burning in his epigastric region. He constantly feels nauseous. He states he is also been coughing up whitish phlegm for last few months he is unsure of this is postnasal drip. He states he has a history of hypertension and is on metoprolol clonidine and lisinopril at home and he took all his medications today. He also is on omeprazole at home. He states he does not drink alcohol today and his very worried as to why this happened to him. He complains of right upper quadrant pain as well. He was in the ER this morning and had a CT abdomen pelvis done and lipase level at the time was 197. Patient went home and came back this evening and now lipase is 2200 and his symptoms have significantly worsened. Labs in ER showed anion gap 31, positive ketones, creatinine 0.9, lactic acid 2.2, platelets 108, WBC 6.4, hemoglobin 14.9, CO2 16, potassium 3.4, AST 114, ALT 100. Alcohol level negative. When seen in room at bedside patient appears very nauseous and seems to be in a lot of pain. Patient looks ill. He is quite worried that his blood pressure is elevated. Medications/Allergies Home Medications Medication Instructions Recorded Confirmed Last Taken Type lisinopril 40 mg tablet 40 mg PO QAM 01/30/21 12/26/22 01/30/21 History digestive enzymes 1 tab PO .UP TO TWICE A DAY 01/18/22 12/26/22 Unknown History resveratrol 250 mg capsule 250 - 500 mg PO DAILY PRN 01/18/22 12/26/22 Unknown History Inflammation metoprolol tartrate 100 mg tablet 100 mg PO QAM 05/04/22 12/26/22 Unknown History metoclopramide HCl 10 mg tablet 10 mg PO Q6H PRN nausea and 05/20/22 12/26/22 Unknown Rx (Reglan) vomiting #90 tabs clonidine HCl 0.1 mg tablet 0.1 mg PO BEDTIME PRN Blood 09/16/22 12/26/22 Unknown History Pressure Nu-Salt See Rx Instructions .Route .COMPLEX 11/30/22 12/26/22 Unknown History multivitamin 15 ml PO DAILY 11/30/22 12/26/22 Unknown History trazodone 50 mg tablet 25 mg PO BEDTIME PRN Sleep 11/30/22 12/26/22 Unknown History magnesium hydroxide 400 mg/5 mL 30 ml PO BID PRN Constipation 12/22/22 12/26/22 Unknown History oral suspension (Milk of Magnesia) hydrocodone 5 mg-acetaminophen 325 1 tab PO Q6H PRN pain #14 tabs 12/25/22 12/26/22 Unknown Rx mg tablet ondansetron 4 mg disintegrating 4 mg PO Q6H PRN nausea and 12/25/22 12/26/22 Unknown Rx tablet vomiting #14 tabs hydrocodone 5 mg-acetaminophen 325 1 tab PO Q6H PRN pain #14 tabs 01/09/23 Unknown Rx mg tablet omeprazole 40 mg capsule,delayed 40 mg PO QAM #90 caps 01/18/23 Unknown Rx release ondansetron 4 mg disintegrating 4 mg PO Q6H PRN nausea and 01/24/23 Unknown Rx tablet vomiting #14 tabs ondansetron 4 mg disintegrating 4 mg PO Q8H PRN nausea and 02/14/23 Unknown Rx tablet vomiting #20 tabs Allergies Allergy/AdvReac Type Severity Reaction Status Date / Time aspirin Allergy Unknown ADR-Gastrointestinal Verified 01/24/23 02:50 Upset NSAIDS (Non-Steroidal Allergy Unknown Unknown Verified 01/24/23 02:50 Anti-Inflamma acetaminophen [From Tylenol] Allergy ADR-Gastrointestinal Verified 01/24/23 02:50 Upset zolpidem [From Ambien] Allergy ADR-Nightma Verified 01/24/23 02:50 re buspirone AdvReac Intermediate ADR-Anxiety Verified 01/24/23 02:50 PFSH Acute PFSH: Medical History Acute on chronic pancreatitis Acute posttraumatic stress disorder Alcohol abuse Anxiety and depression GERD (gastroesophageal reflux disease) High anion gap metabolic acidosis Hyperlipidemia Hypertension Marital/partner relational problem Surgical History No pertinent past surgical history Family History Father Hypertension Social History Smoking and tobacco status: never smoked Alcohol intake: current Alcohol intake frequency: 0-2 Drinks per Day Substance/Drug Use: never Marital status: Number of children: 5 Current occupational status: employed Current gender identity: Male Vitals/I&O/Wt Last Vital Signs Temp 98 F 02/14/23 23:58 Pulse 91 02/15/23 00:50 Resp 20 H 02/15/23 00:37 BP 121/89 02/15/23 00:50 Pulse Ox 95 02/15/23 00:50 O2 Del Method Room Air 02/15/23 00:50 02/14/23 02/14/23 02/15/23 14:59 22:59 06:59 Intake Total 1000 / 1000 Balance 1000 / 1000 Weight last 48 hrs Weight 113.398 kg Physical Exam Narrative: Patient provided consent to be seen over audiovisual cart before proceeding with history taking and physical exam in presence of RN. General: Alert oriented x3, patient seen sitting up in bed appearing uncomfortable and in pain. He looks ill. Continuously appears nauseous. Attempting to burp however unable to burp. HEENT: Normocephalic, atraumatic, EOMI, breathing room air. Cardio: Sinus tachycardia, normal S1-S2 Respiratory: Good bilateral air entry, no wheezes no rhonchi appreciated GI: Abdomen soft, right upper quadrant tenderness present, epigastric region tenderness present., bowel sounds however slightly sluggish. Extremities: Pulses 2+, no edema, no cyanosis Data 02/15/23 00:05 02/15/23 00:05 A&P Assessment and plan (1) Pancreatitis: (2) Hypertension: (3) Hyperlipidemia: (4) GERD (gastroesophageal reflux disease): (5) Alcohol abuse: (6) Anxiety and depression: (7) Transaminitis: Plan #Acute on chronic pancreatitis #History of alcohol abuse disorder #Hypertension #PTSD, anxiety depression #Thrombocytopenia secondary to alcohol use #Hypokalemia #Hyponatremia #anion gap metabolic acidosis possibly due to starvation ketosis and dehydration and vomiting ? N.p.o. except ice chips ? Placed on LR 150 cc/h ? Patient is status post 2 L normal saline bolus in ER. ? Dilaudid 1 mg IV every 2 hours as needed ? Zofran and Reglan alternating for nausea ? Placed on thiamine, folic acid ? Check magnesium level in a.m. ? Check CBC CMP in a.m. ? Monitor blood pressure. I will hold off on clonidine for now. He takes it as needed at bedtime ? We will order hydralazine 10 IV as needed for systolic BP greater than 180. ? Hold lisinopril as well. ? Continue metoprolol 100 daily ? Protonix 40 twice daily IV ? Patient did have CT abdomen pelvis done in a.m. today. No need to repeat imaging at this time ? Consider repeat imaging if symptoms worsen however I do expect him to improve in next 48 hours. ? Repeat electrolytes and replete as needed ? Check another CMP at 4 AM. ? Low sodium most likely secondary to dehydration ? Check urinalysis Full code SCDs. No pharmacological DVT prophylaxis as patient is thrombocytopenic. Attestations Medical Necessity Statement*: Greater than 2 midnight stay for management of acute on chronic pancreatitis. Coding Level of Care Code G0426 (50 min) TH Encounter Time (min): 50 Patient seen via Telehealth in the acute care setting (hospital or ED location) by agreement and consent of patient or patient community representative. Telehealth technology used during the visit includes video and audio. This patient encounter is appropriate and reasonable under the circumstances given the patient?s particular presentation at this time. The patient has been advised of the potential risks and limitations of this mode of treatment (including but not limited to the absence of in-person examination at this time) and has agreed to be treated by an off-site physician for this visit. If deemed clinically necessary from this telehealth visit, or if condition or consent for telehealth visit changes, an in-person visit will be arranged. For this encounter, total time for the origination of telehealth care on this date is as shown. Patient provided consent to be seen over audiovisual cart before proceeding with history taking and physical exam in presence of RN. Diagnoses Pancreatitis K85.90 Hypertension I10 Hyperlipidemia E78.5 GERD (gastroesophageal reflux disease) K21.9 Alcohol abuse F10.10 Anxiety and depression F41.9; F32.A Transaminitis R74.01
[2023-02-15] MEDS: metoclopramide 5 mg/mL SDV 2 mL 10 MG IVP (01:57)
[2023-02-15 02:23] LABS: Reflex Lactate Order REFLEX LACTIC ORDERD
[2023-02-15 02:41] LABS: Thyroid Stimulating Hormone 0.54 uIU/mL (0.27-4.20)
[2023-02-15] MEDS: ondansetron 2 mg/ML SDV 2 mL 4 MG IVP ×2 (03:36→22:13)
[2023-02-15] MEDS: folic acid 5 mg/ml MDV 10mL 1 MG IVP (03:40)
[2023-02-15] MEDS: pantoprazole 40 mg SDV IVP (03:41)
[2023-02-15] MEDS: lactated ringers 1,000 ML 150 ML IV ×4 (03:43→23:33)
[2023-02-15 04:44] LABS: Add Urine Microscopic? YES; Bilirubin Urine 1+ (Negative); Blood Urine Neg (Negative); Glucose Urine UA Norm (Normal); Ketones Urine 3+ (Negative); Leukocyte Esterase Urine Trace (Negative); Nitrate Urine Negative (Negative); Protein Urine 1+ (Negative); Specific Gravity, Urine 1.015 (1.005-1.030); Urine Appearance Clear (CLEAR); Urine Color Yellow (Yellow); Urobilinogen Urine Neg (Negative); pH Urine 5 (5-7)
[2023-02-15] MEDS: lidocaine 1% 5 ML in potassium chloride premix 100 ML 26.25 ML IV (04:44)
[2023-02-15 04:45] LABS: Add Urine Culture? No; Bacteria Urine 1+ /hpf; Mucus Urine 2+ /hpf; RBC Urine 0-4 /hpf (0-2); WBC Urine 0-4 /hpf (0-5)
[2023-02-15 04:52] LABS: Basophils % 0.2 %; Hematocrit 39.1 % (42.0-52.0); Hemoglobin 12.9 g/dL (11.7-16.6); Lymphocytes # 0.4 10^3/uL (0.8-4.8); Lymphocytes % 8.5 %; Mean Corpuscular Volume 103.2 fl (80-94); Mean Platelet Volume 11.2 fL (7.4-10.4); Monocytes # 0.4 10^3/uL (0.2-0.9); Monocytes % 8.3 %; Neutrophils # 4.07 10^3/uL (1.8-7.7); Neutrophils % 82.6 %; Nucleated Red Blood Cells % 0 %; Platelet Count 91 10^3/cmm (130-400); Red Blood Count 3.79 10^6/uL (4.1-5.3); Red Cell Distribution Width 12.8 % (12.1-15.1); White Blood Count 4.9 10^3/uL (4.0-10.0)
[2023-02-15 05:04] LABS: Lactic Acid level (Lactate) 0.8 mmol/L (0.5-2.2)
[2023-02-15] MEDS: metoprolol tartrate 50 mg Tablet 100 MG PO (05:24)
[2023-02-15 05:44] LABS: Alanine Aminotransferase 77 U/L (0-41); Albumin Level 4.1 g/dL (3.5-5.2); Alkaline Phosphatase 74 U/L (40-130); Anion Gap 21.8 (5-19); Aspartate Amino Transferase 83 U/L (0-40); Blood Urea Nitrogen 17 mg/dL (6-20); Calcium 8.2 mg/dL (8.5-10.5); Carbon Dioxide 20 mmol/L (22-29); Chloride 98 mmol/L (98-107); Globulin 2.2 g/dL (1.3-4.6); Glomerular Filtration Rate 130.7 mL/min (90-130); Glucose 83 mg/dL (65-115); Osmolality Calculated 283 mOsm/kg (285-295); Potassium 3.8 mmol/L (3.5-5.1); Sodium 136 mmol/L (136-145); Total Bilirubin 1.5 mg/dL (0.15-1.2); Total Protein 6.3 g/dL (6.6-8.7)
--- NOTE | 2023-02-15 07:09 | ECG_ITS ---
[facility] Test Date: 2023-02-15 Pat Name: Buddy Cowan Department: Room: 254 Gender: Male Transaction Processor: : 1990 Requested By: Elizabeth Ramey Order Number: [id number] Thomas MD: Saundra Martinez M.D. Measurements Intervals [place] Rate: 78 P: 55 NC: 138 QRS: 50 QRSD: 88 T: 47 QT: 365 QTc: 417 Interpretive Statements SINUS RHYTHM Compared to ECG 01/09/2023 16:39:44 No significant changes Electronically Signed On 02-15-2023 20:57:05 CDT by Saundra Martinez M.D. [email or web address] [email or web address] health river oaksWedding Partyselect medical specialty hospital - cleveland-fairhillMyLifePlace/store/NU/[id number] f
[2023-02-15 07:33] LABS: Troponin(5th) Baseline 6 ng/L (0-15)
[2023-02-15 08:03] LABS: Troponin 5 2HR Delta 0 ABS# (0-10)
[2023-02-15] MEDS: lidocaine 2% viscous 15 ML, aluminum-mag hydrox-simethicon 30 ML, sucralfate oral liq 1 GM PO (08:25)
--- NOTE | 2023-02-15 08:36 | ECG_ITS ---
[facility] Test Date: 2023-02-15 Pat Name: Buddy Cowan Department: Room: 254 Gender: Male Single Stroke Preformer: : 1990 Requested By: Elizabeth Ramey Order Number: [id number] Thomas MD: Gino Islas M.D. Measurements Intervals [place] Rate: 100 P: 0 W[place]: 0 QRS: 48 QRSD: 75 T: 41 QT: 331 QTc: 427 Interpretive Statements Sinus rhythm with significant underlying baseline artifact first-degree AV block ABNORMAL RHYTHM ECG Compared to ECG 02/15/2023 00:14:27 No change Electronically Signed On 02-16-2023 14:04:27 CDT by Gino Islas M.D. [email or web address] Medicalmercy health [email or web address] [email or web address]/store/[id number]
[2023-02-15] MEDS: folic acid 1 mg Tablet PO (09:48)
[2023-02-15] MEDS: multivitamin therapeutic Tablet 1 TAB PO (09:48)
[2023-02-15 11:16] LABS: Troponin 5 6HR Delta 0 ng/L (0-12)
--- NOTE | 2023-02-15 12:49 | ECG_ITS ---
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 Measurements Intervals [place] Rate: 78 P: 69 VT: 192 QRS: 61 QRSD: 79 T: 51 QT: 350 QTc: 399 Interpretive Statements SINUS RHYTHM Compared to ECG 02/15/2023 08:36:41 First-degree AV block is resolved Electronically Signed On 02-16-2023 14:09:33 CDT by Gino Islas M.D. [email or web address] lady of mercy hospitalQuest Resource Holding Corporation/store/[id number]
[2023-02-16] MEDS: metoclopramide 5 mg/mL SDV 2 mL 10 MG IVP (02:55)
[2023-02-16] MEDS: pantoprazole 40 mg SDV IVP (02:55)
[2023-02-16 03:10] VITALS: RESP 16
[2023-02-16] MEDS: HYDROmorphone 1 mg/mL INJ 1 mL IVP ×2 (03:10→07:45)
[2023-02-16 04:00] VITALS: BP 140/93; PULSE 119; RESP 15; TEMP 37.1; O2SAT 98
[2023-02-16 05:03] LABS: Basophils % 0.4 %; Eosinophils % 0.2 %; Hematocrit 36.5 % (42.0-52.0); Hemoglobin 12.3 g/dL (11.7-16.6); Lymphocytes # 0.9 10^3/uL (0.8-4.8); Lymphocytes % 16.9 %; Mean Corpuscular HGB Conc 33.7 g/dL (30.0-36.0); Mean Corpuscular Hemoglobin 34.3 pg (28.0-34.0); Mean Corpuscular Volume 101.7 fl (80-94); Mean Platelet Volume 11.4 fL (7.4-10.4); Monocytes # 0.5 10^3/uL (0.2-0.9); Monocytes % 9.8 %; Neutrophils # 3.85 10^3/uL (1.8-7.7); Neutrophils % 72.3 %; Nucleated Red Blood Cells % 0 %; Platelet Count 73 10^3/cmm (130-400); Red Blood Count 3.59 10^6/uL (4.1-5.3); Red Cell Distribution Width 12.6 % (12.1-15.1); White Blood Count 5.3 10^3/uL (4.0-10.0)
[2023-02-16 05:24] LABS: Alanine Aminotransferase 61 U/L (0-41); Albumin Level 3.7 g/dL (3.5-5.2); Alkaline Phosphatase 70 U/L (40-130); Anion Gap 20.3 (5-19); Aspartate Amino Transferase 56 U/L (0-40); Blood Urea Nitrogen 7 mg/dL (6-20); Calcium 9.1 mg/dL (8.5-10.5); Carbon Dioxide 21 mmol/L (22-29); Chloride 94 mmol/L (98-107); Globulin 2.5 g/dL (1.3-4.6); Glomerular Filtration Rate 156.1 mL/min (90-130); Glucose 77 mg/dL (65-115); Magnesium 1.7 mg/dL (1.7-2.3); Osmolality Calculated 271 mOsm/kg (285-295); Phosphorus 2.7 mg/dL (2.5-4.5); Potassium 3.3 mmol/L (3.5-5.1); Sodium 132 mmol/L (136-145); Total Bilirubin 1.1 mg/dL (0.15-1.2); Total Protein 6.2 g/dL (6.6-8.7)
[2023-02-16] MEDS: lactated ringers 1,000 ML 150 ML IV (06:05)
[2023-02-16] MEDS: metoprolol tartrate 50 mg Tablet 100 MG PO (06:06)
[2023-02-16 07:38] VITALS: BP 131/81; PULSE 91; RESP 18; TEMP 37.1; O2SAT 97
[2023-02-16] MEDS: multivitamin therapeutic Tablet 1 TAB PO (07:44)
[2023-02-16] MEDS: folic acid 1 mg Tablet PO (07:44)
[2023-02-16 07:45] VITALS: RESP 18
--- NOTE | 2023-02-16 12:36 | PM.DCS ---
Discharge Providers Date of Admission: 02/15/23 01:18 Date of Discharge: February 16, 2023 Attending Provider at Admission: Elizabeth Ramey MD Attending Provider at Discharge: Antonio Fields MD Primary Care Provider: Antonio Alvarado MD Diagnoses at Discharge Discharge Diagnosis (1) Pancreatitis: Status: Acute (2) Hypertension: Status: Acute (3) Hyperlipidemia: Status: Acute (4) GERD (gastroesophageal reflux disease): Status: Acute (5) Alcohol abuse: Status: Acute (6) Anxiety and depression: Status: Acute (7) Transaminitis: Status: Acute Reason for Visit Reason for Visit: abd pain Hospital Course Hospital Course 32 year old male with past medical history of chronic pancreatitis, PTSD, alcohol abuse, anxiety, depression, GERD, hyperlipidemia, hypertension presented to the hospital today for complaint of nausea vomiting and not being able to keep anything down, patient was admitted for the management of acute on chronic pancreatitis, he was managed conservatively with IV fluids pain control, antiemetics, initially n.p.o., later was started on clear liquid diet, which he tolerated well.At the time of discharge his pain was well controlled, denied any nausea vomiting. He was discharged in stable condition to home. Physical Exam Const: COMMON NORMALS: patient oriented x3 HENMT: COMMON NORMALS: normocephalic and atraumatic HEAD & SCALP: normocephalic and atraumatic Resp: COMMON NORMALS: clear to auscultation bilaterally AUSCULTATION: clear to auscultation bilaterally Cardio: COMMON NORMALS: regular rate, regular rhythm, S1 normal heart sound present, S2 normal heart sound present, No gallops present (Cardio), No murmurs present (Cardio), No rub (Cardio) and Peripheral pulses 2+ throughout RATE: regular rate RHYTHM: regular rhythm HEART SOUNDS: S1 normal heart sound present and S2 normal heart sound present PERIPHERAL PULSES: Peripheral pulses 2+ throughout GI: COMMON NORMALS: Normal to inspection, nondistended, normoactive bowel sounds present, Soft to palpation and no masses AUSCULTATION: Yes normoactive bowel sounds PALPATION: Yes Soft to palpation RECTAL EXAM: Yes deferred Extremity: COMMON NORMALS: no clubbing, cyanosis or edema and no pedal edema Neuro: COMMON NORMALS: patient oriented x3 Discharge Data Studies Completed and Pending Laboratory Results WBC 5.3 10^3/uL (4.0-10.0) 02/16/23 04:39 RBC 3.59 10^6/uL (4.1-5.3) L 02/16/23 04:39 Hgb 12.3 g/dL (11.7-16.6) 02/16/23 04:39 Hct 36.5 % (42.0-52.0) L 02/16/23 04:39 MCV 101.7 fl (80-94) H 02/16/23 04:39 MCH 34.3 pg (28.0-34.0) H 02/16/23 04:39 MCHC 33.7 g/dL (30.0-36.0) 02/16/23 04:39 RDW 12.6 % (12.1-15.1) 02/16/23 04:39 Plt Count 73 10^3/cmm (130-400) L 02/16/23 04:39 MPV 11.4 fL (7.4-10.4) H 02/16/23 04:39 Neut % (Auto) 72.3 % 02/16/23 04:39 Lymph % (Auto) 16.9 % 02/16/23 04:39 [place] % (Auto) 9.8 % 02/16/23 04:39 Eos % (Auto) 0.2 % 02/16/23 04:39 Baso % (Auto) 0.4 % 02/16/23 04:39 Neut # (Auto) 3.85 10^3/uL (1.8-7.7) 02/16/23 04:39 Lymph # (Auto) 0.9 10^3/uL (0.8-4.8) 02/16/23 04:39 [place] # (Auto) 0.5 10^3/uL (0.2-0.9) 02/16/23 04:39 Eos # (Auto) 0.0 10^3/uL (0.0-0.8) 02/16/23 04:39 Baso # (Auto) 0.0 10^3/uL (0.0-0.1) 02/16/23 04:39 Nucleated RBC % (auto) 0 % 02/16/23 04:39 Nucleated RBCs # 0.0 /100WBC 02/16/23 04:39 Specimen Type Arterial 02/15/23 00:17 Sample Site Brachial, right 02/15/23 00:17 ABG pH 7.38 (7.35-7.45) 02/15/23 00:17 ABG pCO2 30.2 mmHg (35-45) L 02/15/23 00:17 ABG pO2 78.8 mmHg (80.0-100.0) L 02/15/23 00:17 ABG HCO3 17.9 mmol/L (22-26) L 02/15/23 00: ABG Base Excess -6.0 mmol/L (-2.0-2.0) L 02/15/23 00:17 Ricardo Test N/a 02/15/23 00:17 Hematocrit 41.7 % (42-52) L 02/15/23 00:17 O2 Delivery Device None 02/15/23 00:17 FiO2 21.0 % 02/15/23 00:17 Adolescent Medicine Specialist ID Alewe 02/15/23 00:17 Sodium 132 mmol/L (136-145) L 02/16/23 04:39 Potassium 3.3 mmol/L (3.5-5.1) L 02/16/23 04:39 Chloride 94 mmol/L (98-107) L 02/16/23 04:39 Carbon Dioxide 21 mmol/L (22-29) L 02/16/23 04:39 Anion Gap 20.3 (5-19) H 02/16/23 04:39 BUN 7 mg/dL (6-20) 02/16/23 04:39 Creatinine 0.6 mg/dL (0.7-1.2) L 02/16/23 04:39 GFR Calculation 156.1 mL/min (90-130) H 02/16/23 04:39 Glucose 77 mg/dL (65-115) 02/16/23 04:39 Calculated Osmolality 271 mOsm/kg (285-295) L 02/16/23 04:39 Lactic Acid 2.2 mmol/L (0.5-2.2) 02/15/23 00:05 Lactic Acid (Sepsis) 0.8 mmol/L (0.5-2.2) 02/15/23 04:16 Calcium 9.1 mg/dL (8.5-10.5) 02/16/23 04:39 Phosphorus 2.7 mg/dL (2.5-4.5) 02/16/23 04:39 Magnesium 1.7 mg/dL (1.7-2.3) 02/16/23 04:39 Total Bilirubin 1.1 mg/dL (0.15-1.2) 02/16/23 04:39 AST 56 U/L (0-40) H 02/16/23 04:39 ALT 61 U/L (0-41) H 02/16/23 04:39 Alkaline Phosphatase 70 U/L (40-130) 02/16/23 04:39 Troponin T Baseline 6 ng/L (0-15) 02/15/23 04:16 Troponin T 120 Minute 6.00 ng/L (0-15) 02/15/23 07:30 Delta Troponin T 0 ABS# (0-10) 02/15/23 07:30 Troponin T Hi Sens 6Hr 6.00 ng/L (0-15) 02/15/23 10:24 Troponin T Hi Sens 6Hr Delta 0 ng/L (0-12) 02/15/23 10:24 Total Protein 6.2 g/dL (6.6-8.7) L 02/16/23 04:39 Albumin 3.7 g/dL (3.5-5.2) 02/16/23 04:39 Globulin 2.5 g/dL (1.3-4.6) 02/16/23 04:39 Lipase 2767 U/L (13-60) H 02/15/23 00:05 TSH 0.54 uIU/mL (0.27-4.20) 02/15/23 00:05 Urine Color Yellow (Yellow) 02/15/23 03:56 Urine Appearance Clear (CLEAR) 02/15/23 03:56 Urine pH 5 (5-7) 02/15/23 03:56 Ur Specific [place] 1.015 (1.005-1.030) 02/15/23 03:56 Urine Protein 1+ (Negative) H 02/15/23 03:56 Urine Glucose (UA) Norm (Normal) 02/15/23 03:56 Urine Ketones 3+ (Negative) H 02/15/23 03:56 Urine Blood Neg (Negative) 02/15/23 03:56 Urine Nitrate Negative (Negative) 02/15/23 03:56 Urine Bilirubin 1+ (Negative) H 02/15/23 03:56 Urine Urobilinogen Neg mg/dL (Negative) 02/15/23 03:56 Ur Leukocyte Esterase Trace (Negative) H 02/15/23 03:56 Urine RBC 0-4 /hpf (0-2) H 02/15/23 03:56 Urine WBC 0-4 /hpf (0-5) H 02/15/23 03:56 Ur Squamous Epith Cells None /hpf (0-5) 02/15/23 03:56 Amorphous Sediment Not Reportable 02/15/23 03:56 Urine Bacteria 1+ /hpf (NONE) H 02/15/23 03:56 Urine Mucus 2+ /hpf 02/15/23 03:56 Ethyl Alcohol < 10 mg/dL (0-10) 02/15/23 00:05 Serum Ketones Positive (Negative) H 02/15/23 00:05 Vitals Last Vital Signs Temp 98.8 F 02/16/23 07:38 Pulse 91 02/16/23 07:38 Resp 18 02/16/23 07:45 BP 131/81 02/16/23 07:38 Pulse Ox 97 02/16/23 07:38 O2 Del Method Room Air 02/16/23 07:38 Discharge Plan Discharge Patient Disposition: Home Condition: Stable Prescriptions: Continued digestive enzymes Tablet 1 tab PO .UP TO TWICE A DAY resveratrol 250 mg capsule 250 - 500 mg PO DAILY PRN (Reason: Inflammation) metoclopramide HCl [Reglan] 10 mg tablet 10 mg PO Q6H PRN (Reason: nausea and vomiting) Qty: 90 1RF omeprazole 40 mg capsule,delayed release(DR/EC) 40 mg PO QAM Qty: 90 0RF lisinopril 40 mg Tablet 40 mg PO QAM metoprolol tartrate 100 mg tablet 100 mg PO QAM clonidine HCl 0.1 mg tablet 0.1 mg PO BEDTIME PRN (Reason: Blood Pressure) magnesium hydroxide [Milk of Magnesia] 400 mg/5 mL Suspension 30 ml PO BID PRN (Reason: Constipation) multivitamin Liquid 15 ml PO DAILY trazodone 50 mg tablet 25 mg PO BEDTIME PRN (Reason: Sleep) Nu-Salt See Rx Instructions .ROUTE .COMPLEX Rx Instructions: prn hydrocodone-acetaminophen 5-325 mg tablet 1 tab PO Q6H PRN (Reason: pain) Qty: 14 0RF ondansetron 4 mg tablet,disintegrating 4 mg PO Q8H PRN (Reason: nausea and vomiting) Qty: 20 0RF Discharge Orders: Discharge Order (Routine); Ordered 02/16/23 Ordered By: Antonio Fields Referrals: Antonio Alvarado MD [Primary Care Provider] - 03/09/23 9:30 am Patient Instructions: Alcoholism, Pancreatitis (DC), Alcohol Intoxication (DC), Acute Nausea and Vomiting (DC), Opioid Safety Discharge Attestations Time Spent in Discharge Care*: less than 30 min Quality Metrics Clinical Quality Measures [ No reported AMI, CVA or VTE this stay] Coding Level of Care Code Acute Code for Chg Fwd Diagnoses Pancreatitis K85.90 Hypertension I10 Hyperlipidemia E78.5 GERD (gastroesophageal reflux disease) K21.9 Alcohol abuse F10.10 Anxiety and depression F41.9; F32.A Transaminitis R74.01
[2023-02-16 12:38] VITALS: RESP 18
== END 2023-02-16 13:40 | disposition home or self-care (01) | DRG 439 ==
LOC: ER 02-15 00:52 → MEDSURG 02-15 01:19
PROVIDERS: Admitting Provider Internal Medicine; Emergency Provider Emergency Medicine; PCP Family Medicine Adult Medicine; Visit Provider Internal Medicine
DX: K85.20 Alcohol induced acute pancreatitis without necrosis or infection (principal); E87.1 Hypo-osmolality and hyponatremia; E87.20 Acidosis, unspecified; K86.0 Alcohol-induced chronic pancreatitis; F43.10 Post-traumatic stress disorder, unspecified; F10.10 Alcohol abuse, uncomplicated; F41.9 Anxiety disorder, unspecified; F32.9 Major depressive disorder, single episode, unspecified; K21.9 Gastro-esophageal reflux disease without esophagitis; E78.5 Hyperlipidemia, unspecified; I10 Essential (primary) hypertension; Z79.891 Long term (current) use of opiate analgesic; D69.59 Other secondary thrombocytopenia; E87.6 Hypokalemia; E86.0 Dehydration
CPT/HCPCS: 36415; 36600; 80053; 80307; 81001; 82009; 82803; 83605; 83690; 83735; 84100; 84443; 84484; 85025; 93005; 96361; 96374; 96375; 99285; C9113; J1170; J2060; J2270; J2405; J2765; J3411; J3480; J3490; J7030; J7120

== ENCOUNTER 2023-03-05 12:03 | Emergency (ER) | payer MEDICAID, SELFPAY ==
[2023-03-05 12:07] VITALS: BP 129/106; PULSE 141; RESP 20; TEMP 36.8; O2SAT 95; BMI 29.8
--- NOTE | 2023-03-05 12:17 | ECG_ITS ---
[facility] Test Date: 2023-03-05 Pat Name: Buddy Cowan Department: Room: Gender: Male Student Development Advisor: : 1990 Requested By: Yamil Sharif Order Number: [id number] Thomas MD: Jorje Eller M.D. Measurements Intervals [place] Rate: 125 P: 82 VT: 169 QRS: 81 QRSD: 75 T: 73 QT: 308 QTc: 444 Interpretive Statements SINUS TACHYCARDIA NONSPECIFIC T-WAVE ABNORMALITY Compared to ECG 02/15/2023 12:49:31 T-wave abnormality now present Sinus rhythm no longer present Electronically Signed On 03-06-2023 23:34:14 CDT by Jorje Eller M.D. [email or web address]
--- NOTE | 2023-03-05 12:17 | XRR_ITS ---
PROCEDURE INFORMATION: Exam: XR Chest Exam date and time: 03/05/2023 12:43 PM Age: 32 years old Clinical indication: Pain; Chest pressure; Additional info: Cp TECHNIQUE: Imaging protocol: Radiologic exam of the chest. Views: 1 view. COMPARISON: CR XR chest 1V portable [id number] 12/22/2022 7:34 AM FINDINGS: Lungs: Unremarkable. No consolidation. Pleural spaces: Unremarkable. No pleural effusion. No pneumothorax. Heart/Mediastinum: Unremarkable. No cardiomegaly. Bones/joints: Unremarkable. XR/XR chest 1V portable [id number] IMPRESSION: No acute findings.
[2023-03-05 12:27] LABS: Basophils # 0.1 10^3/uL (0.0-0.1); Basophils % 1.1 %; Eosinophils % 0.1 %; Hematocrit 44.6 % (42.0-52.0); Hemoglobin 15.4 g/dL (11.7-16.6); Lymphocytes % 26.8 %; Mean Corpuscular HGB Conc 34.5 g/dL (30.0-36.0); Mean Corpuscular Hemoglobin 32.9 pg (28.0-34.0); Mean Corpuscular Volume 95.3 fl (80-94); Mean Platelet Volume 9.9 fL (7.4-10.4); Monocytes # 0.7 10^3/uL (0.2-0.9); Monocytes % 8.8 %; Neutrophils # 4.78 10^3/uL (1.8-7.7); Neutrophils % 63.1 %; Nucleated Red Blood Cells % 0 %; Platelet Count 357 10^3/cmm (130-400); Red Blood Count 4.68 10^6/uL (4.1-5.3); Red Cell Distribution Width 12.4 % (12.1-15.1); White Blood Count 7.6 10^3/uL (4.0-10.0)
--- NOTE | 2023-03-05 12:36 | ED_ITS ---
HPI - Chest Pain General: Chief Complaint: Chest Pain Stated Complaint: CHEST PAIN; ANXIETY Time Seen by Provider: 03/05/23 12:05 Source: EMS Mode of arrival: EMS Limitations: no limitations History of Present Illness: 32-year-old male states that he ate ate a gummy last night he states has been having panic attacks ever since. He states he drank a large amount of alcohol last night due to his anxiety and is felt extremely anxious throughout the day today. He is very anxious in the room he had some chest pains. He has a long history of alcoholism denies any vomiting or diarrhea. Associated symptoms: Deny abdominal pain, dyspnea, fever(s), nausea or vomiting Review of Systems Const: Denies: fever(s), chills, body aches or change in appetite Eyes: Denies: eye discomfort ENMT: Denies: throat pain or dental pain Card: Reports: chest pain Resp: Denies: dyspnea GI: Denies: abdominal pain, nausea, vomiting or diarrhea : Denies: dysuria Musc: Denies: neck pain or back pain Skin/Breast: Denies: rash Neuro: Denies: headache(s) Psych: Reports: anxiety and panic attacks; Denies: depression PFSH ED PFSH: Medical History Acute on chronic pancreatitis Acute posttraumatic stress disorder Alcohol abuse Anxiety and depression GERD (gastroesophageal reflux disease) High anion gap metabolic acidosis Hyperlipidemia Hypertension Marital/partner relational problem Pancreatitis Transaminitis Surgical History No pertinent past surgical history Family History Father Hypertension Social History Smoking and tobacco status: never smoked Alcohol intake: current Alcohol intake frequency: 0-2 Drinks per Day Substance/Drug Use: never Marital status: Number of children: 5 Current occupational status: employed Current gender identity: Male Physical Exam Const: COMMON NORMALS: patient oriented x3 HENMT: COMMON NORMALS: normocephalic and atraumatic HEAD & SCALP: normocephalic and atraumatic Eye: COMMON NORMALS: Equal, round and reactive pupils present and EOMs intact bilaterally PUPIL: Yes Equal, round and reactive pupils present Neck/C-Spine: COMMON NORMALS: full ROM and supple Chest: COMMONS NORMALS: normal inspection of the chest and normal palpation of entire chest wall Resp: COMMON NORMALS: normal respiratory effort, No retractions, No use of accessory muscles and clear to auscultation bilaterally AUSCULTATION: clear to auscultation bilaterally Cardio: COMMON NORMALS: regular rhythm and No murmurs present (Cardio) RATE: tachycardic RHYTHM: regular rhythm GI: COMMON NORMALS: Normal to inspection, nondistended, normoactive bowel sounds present, Soft to palpation, non-tender and no masses PALPATION: Yes Soft to palpation Extremity: COMMON NORMALS: normal to inspection and full ROM Neuro: COMMON NORMALS: patient oriented x3, moves all extremities and no focal motor deficits Psych: COMMON NORMALS: mental status grossly normal, Normal thought process present and cooperative MOOD & AFFECT: Yes anxious THOUGHT PROCESS: Normal thought process present Skin: COMMON NORMALS: no rashes or lesions noted and no wounds GENERAL SKIN EXAM: no rashes or lesions noted Course Vital Signs: Vital signs: Vital Signs Temperature 98.3 F 03/05/23 12:07 Pulse Rate 106 H 03/05/23 14:52 Respiratory Rate 18 03/05/23 14:52 Blood Pressure 151/105 03/05/23 14:52 Pulse Oximetry 94 03/05/23 14:52 Oxygen Delivery Me thod Room Air 03/05/23 14:52 MDM - Chest Pain Medical Decision Making Has been normallyPatient presents here with panic attack his heart rates much improved after Ativan and fluids no signs of withdrawal he feels improved want to go home he is stable for discharge he is to follow-up his PCP and return if worsening he understands agrees to plan. Medical Records I reviewed the patient's medical records. Lab Data I reviewed the patient's lab results. 03/05/23 12:12 03/05/23 12:12 Radiology Impressions Chest X-Ray 03/05/23 12:17 IMPRESSION: No acute findings. Laboratory Results WBC 7.6 10^3/uL (4.0-10.0) 03/05/23 12:12 RBC 4.68 10^6/uL (4.1-5.3) 03/05/23 12:12 Hgb 15.4 g/dL (11.7-16.6) 03/05/23 12:12 Hct 44.6 % (42.0-52.0) 03/05/23 12:12 MCV 95.3 fl (80-94) H 03/05/23 12:12 MCH 32.9 pg (28.0-34.0) 03/05/23 12:12 MCHC 34.5 g/dL (30.0-36.0) 03/05/23 12:12 RDW 12.4 % (12.1-15.1) 03/05/23 12:12 Plt Count 357 10^3/cmm (130-400) 03/05/23 12:12 MPV 9.9 fL (7.4-10.4) 03/05/23 12:12 Neut % (Auto) 63.1 % 03/05/23 12:12 Lymph % (Auto) 26.8 % 03/05/23 12:12 [place] % (Auto) 8.8 % 03/05/23 12:12 Eos % (Auto) 0.1 % 03/05/23 12:12 Baso % (Auto) 1.1 % 03/05/23 12:12 Neut # (Auto) 4.78 10^3/uL (1.8-7.7) 03/05/23 12:12 Lymph # (Auto) 2.0 10^3/uL (0.8-4.8) 03/05/23 12:12 [place] # (Auto) 0.7 10^3/uL (0.2-0.9) 03/05/23 12:12 Eos # (Auto) 0.0 10^3/uL (0.0-0.8) 03/05/23 12:12 Baso # (Auto) 0.1 10^3/uL (0.0-0.1) 03/05/23 12:12 Nucleated RBC % (auto) 0 % 03/05/23 12:12 Nucleated RBCs # 0.0 /100WBC 03/05/23 12:12 Sodium 134 mmol/L (136-145) L 03/05/23 12:12 Potassium 4.3 mmol/L (3.5-5.1) 03/05/23 12:12 Chloride 93 mmol/L (98-107) L 03/05/23 12:12 Carbon Dioxide 19 mmol/L (22-29) L 03/05/23 12:12 Anion Gap 26.3 (5-19) H 03/05/23 12:12 BUN 9 mg/dL (6-20) 03/05/23 12:12 Creatinine 0.6 mg/dL (0.7-1.2) L 03/05/23 12:12 GFR Calculation 156.1 mL/min (90-130) H 03/05/23 12:12 Glucose 109 mg/dL (65-115) 03/05/23 12:12 Calculated Osmolality 277 mOsm/kg (285-295) L 03/05/23 12:12 Calcium 9.6 mg/dL (8.5-10.5) 03/05/23 12:12 Total Bilirubin 0.8 mg/dL (0.15-1.2) 03/05/23 12:12 AST 57 U/L (0-40) H 03/05/23 12:12 ALT 68 U/L (0-41) H 03/05/23 12:12 Alkaline Phosphatase 93 U/L (40-130) 03/05/23 12:12 Troponin T Baseline 6 ng/L (0-15) 03/05/23 12:12 Total Protein 7.3 g/dL (6.6-8.7) 03/05/23 12:12 Albumin 4.6 g/dL (3.5-5.2) 03/05/23 12:12 Globulin 2.7 g/dL (1.3-4.6) 03/05/23 12:12 Lipase 44 U/L (13-60) 03/05/23 12:12 Ethyl Alcohol 21 mg/dL (0-10) H 03/05/23 12:12 EKG Data EKG 1: I personally reviewed and interpreted this EKG as follows: EKG interpretation date: 03/05/23 EKG interpretation time: 12:26 Interpretation: sinus tach hr [address] or t wave abnormalities qrs 75 qtc 382 Discharge Plan Discharge Patient Disposition: Home Clinical Impression: Chest pain, Panic attack Condition: Stable Prescriptions: New ondansetron 4 mg tablet,disintegrating 4 mg PO Q6H PRN (Reason: nausea and vomiting) Qty: 14 0RF No Action digestive enzymes Tablet 1 tab PO .UP TO TWICE A DAY resveratrol 250 mg capsule 250 - 500 mg PO DAILY PRN (Reason: Inflammation) metoclopramide HCl [Reglan] 10 mg tablet 10 mg PO Q6H PRN (Reason: nausea and vomiting) Qty: 90 1RF omeprazole 40 mg capsule,delayed release(DR/EC) 40 mg PO QAM Qty: 90 0RF trazodone 50 mg tablet 25 mg PO BEDTIME PRN (Reason: Sleep) Qty: 45 0RF lisinopril 40 mg Tablet 40 mg PO QAM metoprolol tartrate 100 mg tablet 100 mg PO QAM clonidine HCl 0.1 mg tablet 0.1 mg PO BEDTIME PRN (Reason: Blood Pressure) magnesium hydroxide [Milk of Magnesia] 400 mg/5 mL Suspension 30 ml PO BID PRN (Reason: Constipation) multivitamin Liquid 15 ml PO DAILY Nu-Salt See Rx Instructions .ROUTE .COMPLEX Rx Instructions: prn hydrocodone-acetaminophen 5-325 mg tablet 1 tab PO Q6H PRN (Reason: pain) Qty: 14 0RF ondansetron 4 mg tablet,disintegrating 4 mg PO Q8H PRN (Reason: nausea and vomiting) Qty: 20 0RF Discharge Orders: Discharge ED (Routine); Ordered 03/05/23 Ordered By: Yamil Sharif Referrals: Antonio Alvarado MD [Primary Care Provider] - 1-3 days Discharge Diet: Advance as tolerated Discharge Activity: Resume usual activity Patient Instructions: Panic Attack (ED) Coding Level of Care Code ED Volleyball Assistant Coach for Al Duran
--- NOTE | 2023-03-05 12:38 | PC.NURSE ---
PT PLACED ON CONTINUOUS SPO2, NIBP, AND CM.
[2023-03-05] MEDS: sodium chloride 0.9% 1,000 ML 999 ML IV ×2 (12:39→14:17)
[2023-03-05] MEDS: LORazepam 2 mg/mL INJ 1 mL IVP (12:39)
[2023-03-05 12:42] LABS: Troponin(5th) Baseline 6 ng/L (0-15)
[2023-03-05 12:45] LABS: Alanine Aminotransferase 68 U/L (0-41); Albumin Level 4.6 g/dL (3.5-5.2); Alcohol Level 21 mg/dL (0-10); Alkaline Phosphatase 93 U/L (40-130); Anion Gap 26.3 (5-19); Aspartate Amino Transferase 57 U/L (0-40); Blood Urea Nitrogen 9 mg/dL (6-20); Calcium 9.6 mg/dL (8.5-10.5); Carbon Dioxide 19 mmol/L (22-29); Chloride 93 mmol/L (98-107); Globulin 2.7 g/dL (1.3-4.6); Glomerular Filtration Rate 156.1 mL/min (90-130); Glucose 109 mg/dL (65-115); Osmolality Calculated 277 mOsm/kg (285-295); Potassium 4.3 mmol/L (3.5-5.1); Sodium 134 mmol/L (136-145); Total Bilirubin 0.8 mg/dL (0.15-1.2); Total Protein 7.3 g/dL (6.6-8.7)
[2023-03-05 13:26] LABS: Lipase 44 U/L (13-60)
[2023-03-05 13:30] VITALS: BP 138/94; PULSE 115; RESP 18; O2SAT 94
[2023-03-05] MEDS: HYDROcodone-acetaminophen 5-325 mg Tablet 1 TAB PO (14:17)
[2023-03-05 14:52] VITALS: BP 151/105; PULSE 106; RESP 18; O2SAT 94
== END 2023-03-05 15:03 | disposition home or self-care (01) ==
PROVIDERS: Emergency Provider Emergency Medicine; PCP Family Medicine Adult Medicine
DX: R07.9 Chest pain, unspecified (principal); F41.0 Panic disorder [episodic paroxysmal anxiety]
CPT/HCPCS: 71045; 80053; 80307; 83690; 84484; 85025; 93005; 96361; 96374; 99285; J2060; J7030

== ENCOUNTER 2023-03-23 03:33 | Inpatient (IN) | payer MEDICAID, SELFPAY ==
[2023-03-23] VITALS (11 sets, daily range): BP systolic 140–167; BP diastolic 89–115; PULSE 88–126; RESP 16–18; TEMP 36.4–36.9; O2SAT 96–99; BMI 31.1
--- NOTE | 2023-03-23 03:38 | CTR_ITS ---
PROCEDURE INFORMATION: Exam: CT Abdomen And Pelvis With Contrast Exam date and time: 03/23/2023 3:56 AM Age: 32 years old Clinical indication: Nausea and vomiting; Abdominal pain; Patient HX: Epigastric pain with n/v. Long chronic history of pancreatitis. ; Additional info: Abd pain n/v HX of pancreatitis TECHNIQUE: Imaging protocol: Computed tomography of the abdomen and pelvis with contrast. Radiation optimization: All CT scans at this facility use at least one of these dose optimization techniques: automated exposure control; mA and/or kV adjustment per patient size (includes targeted exams where dose is matched to clinical indication); or iterative reconstruction. Contrast material: OMNI 350; Contrast volume: 100 ml; Contrast route: INTRAVENOUS (IV); REPORTING DATA: Count of CT and Cardiac NM exams in prior 12 months: This patient has received 11 known CTs and 0 known cardiac nuclear medicine studies in the 12 months prior to the current study. COMPARISON: 1. CT abdomen pelvis w con* [id number] 02/14/2023 10:[address] abdomen pelvis wo con [id number] 06/13/2022 7:[address] abdomen pelvis w con* [id number] 02/19/2021 12:32 PM RADIATION DOSE METRICS: Total DLP (mGy-cm): 748.03 FINDINGS: Lungs: Lung bases are clear. Liver: The liver is moderately enlarged. There is diffuse low-attenuation of the liver relative to the spleen consistent with fatty infiltration. There is a 2.4 x 1.8 cm hyperenhancing mass in the inferior right lobe visible on series 3, image 47. Gallbladder and bile ducts: There is high attenuation material within the gallbladder lumen consistent with sludge. There is no intrahepatic or extrahepatic bile duct dilation. Pancreas: There is mild diffuse peripancreatic edema. No fluid collection. No hematoma. No sign of pancreatic necrosis. Spleen: The spleen is unremarkable. Adrenal glands: The adrenal glands are unremarkable. Kidneys and ureters: The kidneys are unremarkable. No hydronephrosis or stones. No ureteral dilation. Stomach and bowel: The stomach is decompressed, preventing meaningful evaluation of wall thickness. The small bowel is nondilated. The colon is unremarkable. Appendix: The appendix is normal. Intraperitoneal space: There is no free air or significant intraperitoneal free fluid. Vasculature: The aorta is unremarkable. There is no aneurysm. The portal, splenic and superior mesenteric veins are patent. Lymph nodes: There is no lymphadenopathy in the retroperitoneum, mesentery, pelvis or inguinal regions. Urinary bladder: The urinary bladder is unremarkable. Reproductive: The prostate and seminal vesicles are unremarkable. Bones/joints: There is mild degenerative disease in the lower lumbar spine. The pelvis and hips are unremarkable. Soft tissues: The abdominal wall is intact. CT/CT abdomen pelvis w con* [id number] IMPRESSION: 1. Acute interstitial edematous pancreatitis. No sign of necrosis or hemorrhage. 2. Hepatomegaly and severe hepatic steatosis. 3. 2.4 cm mass in the right lobe of the liver with suggestive imaging features of hemangioma. The lesion is stable in size since 02/19/2021. 4. Incidental findings above.
--- NOTE | 2023-03-23 03:43 | W.ED.ABDPA2 ---
HPI - Abdominal Pain General: Chief Complaint: Abdominal Pain Stated Complaint: ABD PAIN Time Seen by Provider: 03/23/23 03:38 History of Present Illness: Patient presents today with a 3-day history of nausea vomiting abdominal pain. Patient does have a history of pancreatitis and a long history of alcoholism. Patient has had multiple bouts of pancreatitis requiring admission. Patient says this feels exact like the same as he has had before. MD elicited complaint: abdominal pain Pertinent past history: other (Chronic pancreatitis) Onset (ago): day(s) (3 days ago) Pain Consistency: constant Location: Diffuse Severity: moderate Quality: aching Radiation: none Migration to: no migration Exacerbating factors: eating Relieving factors: nothing Context: history of similar episodes Associated Symptoms: Reports nausea, poor appetite and vomiting Review of Systems General: Reports: 10 or more systems reviewed and unremarkable except in HPI and below GI: Reports: nausea and vomiting [facility] PFSH: Medical History Acute on chronic pancreatitis Acute posttraumatic stress disorder Alcohol abuse Anxiety and depression Folliculitis GERD (gastroesophageal reflux disease) Gynecomastia, male Hyperlipidemia Hypertension Marital/partner relational problem Panic attack Transaminitis Surgical History No pertinent past surgical history Family History Father Hypertension Social History Smoking and tobacco status: never smoked Alcohol intake: current Alcohol intake frequency: 0-2 Drinks per Day Substance/Drug Use: never Marital status: Number of children: 5 Current occupational status: employed Current gender identity: Male Physical Exam Const: COMMON NORMALS: no acute distress, average body habitus, patient oriented x3, no limitations, healthy appearing, alert and well nourished HENMT: COMMON NORMALS: normocephalic, atraumatic, hearing grossly normal bilaterally, external ears normal, Normal external nose present and moist oral mucous membranes HEAD & SCALP: normocephalic and atraumatic NOSE: Normal external nose present EXTERNAL EAR: Yes external ears normal Neck/C-Spine: COMMON NORMALS: full ROM, no lymphadenopathy, supple, no meningeal signs, no JVD and Thyroid normal THYROID: Thyroid normal Chest: COMMONS NORMALS: normal inspection of the chest and normal palpation of entire chest wall Resp: COMMON NORMALS: normal respiratory effort, No retractions, No use of accessory muscles and clear to auscultation bilaterally AUSCULTATION: clear to auscultation bilaterally Cardio: COMMON NORMALS: no JVD, S1 normal heart sound present, S2 normal heart sound present, No gallops present (Cardio), No clicks present (Cardio), No murmurs present (Cardio) and No rub (Cardio) RATE: tachycardic HEART SOUNDS: S1 normal heart sound present and S2 normal heart sound present GI: COMMON NORMALS: Normal to inspection, nondistended, normoactive bowel sounds present, Soft to palpation, No hepatosplenomegaly present and no masses PALPATION: Yes Soft to palpation, Yes Tenderness to palpation present (GI) (Diffusely) and Yes No hepatosplenomegaly present : COMMON NORMALS: Yes no CVA tenderness BLADDER/KIDNEY EXAM: Yes no CVA tenderness Back/Pelvis: COMMON NORMALS: no CVA tenderness Neuro: COMMON NORMALS: patient oriented x3 SENSORIUM/ORIENTATION: Yes alert MENINGEAL SIGNS: Yes no meningeal signs Course Vital Signs: Vital signs: Vital Signs Temperature 98.4 F 03/23/23 03:34 Pulse Rate 110 H 03/23/23 05:21 Respiratory Rate 16 03/23/23 05:21 Blood Pressure 167/112 03/23/23 05:21 Pulse Oximetry 98 03/23/23 05:21 Oxygen Delivery Me thod Room Air 03/23/23 05:21 MDM - Abdominal Pain Medical Decision Making Patient presents to the ER with complaints of nausea vomiting x3 days and a history of pancreatitis with multiple admissions. Lab work was obtained which showed a low sodium of 123 a potassium of 3.4 a lipase of approximately 600 with a white count of 6.4. Contrasted CT scan of the abdomen pelvis is still pending Dr. Davis has been consulted and agreed to admission for further evaluation and treatment. Differential Diagnosis Likely abdominal pain and pancreatitis; Unlikely acute appendicitis, calculus of kidney, constipation, diverticulitis, endometriosis, gastroenteritis or small bowel obstruction Medical Records I reviewed the patient's medical records. Lab Data I reviewed the patient's lab results. 03/23/23 03:48 03/23/23 03:48 Labs/Radiology: Laboratory Results WBC 6.4 10^3/uL (4.0-10.0) 03/23/23 03:48 RBC 4.32 10^6/uL (4.1-5.3) 03/23/23 03:48 Hgb 14.4 g/dL (11.7-16.6) 03/23/23 03:48 Hct 39.9 % (42.0-52.0) L 03/23/23 03:48 MCV 92.4 fl (80-94) 03/23/23 03:48 MCH 33.3 pg (28.0-34.0) 03/23/23 03:48 MCHC 36.1 g/dL (30.0-36.0) H 03/23/23 03:48 RDW 11.7 % (12.1-15.1) L 03/23/23 03:48 Plt Count 97 10^3/cmm (130-400) L 03/23/23 03:48 MPV 10.2 fL (7.4-10.4) 03/23/23 03:48 Neut % (Auto) 73.1 % 03/23/23 03:48 Lymph % (Auto) 15.7 % 03/23/23 03:48 [place] % (Auto) 10.4 % 03/23/23 03:48 Eos % (Auto) 0.0 % 03/23/23 03:48 Baso % (Auto) 0.5 % 03/23/23 03:48 Neut # (Auto) 4.71 10^3/uL (1.8-7.7) 03/23/23 03:48 Lymph # (Auto) 1.0 10^3/uL (0.8-4.8) 03/23/23 03:48 [place] # (Auto) 0.7 10^3/uL (0.2-0.9) 03/23/23 03:48 Eos # (Auto) 0.0 10^3/uL (0.0-0.8) 03/23/23 03:48 Baso # (Auto) 0.0 10^3/uL (0.0-0.1) 03/23/23 03:48 Nucleated RBC % (auto) 0 % 03/23/23 03:48 Nucleated RBCs # 0.0 /100WBC 03/23/23 03:48 Sodium 123 mmol/L (136-145) L 03/23/23 03:48 Potassium 3.4 mmol/L (3.5-5.1) L 03/23/23 03:48 Chloride 80 mmol/L (98-107) L 03/23/23 03:48 Carbon Dioxide 12 mmol/L (22-29) L 03/23/23 03:48 Anion Gap 34.4 (5-19) H 03/23/23 03:48 BUN 10 mg/dL (6-20) 03/23/23 03:48 Creatinine 0.6 mg/dL (0.7-1.2) L 03/23/23 03:48 GFR Calculation 156.1 mL/min (90-130) H 03/23/23 03:48 Glucose 72 mg/dL (65-115) 03/23/23 03:48 Calculated Osmolality 254 mOsm/kg (285-295) L 03/23/23 03:48 Lactic Acid 4.6 mmol/L (0.5-2.2) H* 03/23/23 03:48 Calcium 9.1 mg/dL (8.5-10.5) 03/23/23 03:48 Magnesium 1.6 mg/dL (1.7-2.3) L 03/23/23 03:48 Total Bilirubin 1.5 mg/dL (0.15-1.2) H 03/23/23 03:48 AST 134 U/L (0-40) H 03/23/23 03:48 ALT 91 U/L (0-41) H 03/23/23 03:48 Alkaline Phosphatase 106 U/L (40-130) 03/23/23 03:48 Total Protein 7.6 g/dL (6.6-8.7) 03/23/23 03:48 Albumin 4.6 g/dL (3.5-5.2) 03/23/23 03:48 Globulin 3.0 g/dL (1.3-4.6) 03/23/23 03:48 Lipase 719 U/L (13-60) H 03/23/23 03:48 Procalcitonin 0.30 ng/mL (0-0.5) 03/23/23 03:48 Ethyl Alcohol 30 mg/dL (0-10) H 03/23/23 03:48 Discharge Plan Discharge Patient Disposition: Admitted As Inpatient Clinical Impression: Pancreatitis Condition: Stable Coding Level of Care Code ED [employer] for [employer]
[2023-03-23] MEDS: ondansetron 2 mg/ML SDV 2 mL 8 MG IVP (03:46)
[2023-03-23] MEDS: sodium chloride 0.9% 1,000 ML 999 ML IV ×2 (03:51→06:22)
[2023-03-23 03:57] LABS: Basophils % 0.5 %; Hematocrit 39.9 % (42.0-52.0); Hemoglobin 14.4 g/dL (11.7-16.6); Lymphocytes % 15.7 %; Mean Corpuscular HGB Conc 36.1 g/dL (30.0-36.0); Mean Corpuscular Hemoglobin 33.3 pg (28.0-34.0); Mean Corpuscular Volume 92.4 fl (80-94); Mean Platelet Volume 10.2 fL (7.4-10.4); Monocytes # 0.7 10^3/uL (0.2-0.9); Monocytes % 10.4 %; Neutrophils # 4.71 10^3/uL (1.8-7.7); Neutrophils % 73.1 %; Nucleated Red Blood Cells % 0 %; Platelet Count 97 10^3/cmm (130-400); Red Blood Count 4.32 10^6/uL (4.1-5.3); Red Cell Distribution Width 11.7 % (12.1-15.1); White Blood Count 6.4 10^3/uL (4.0-10.0)
[2023-03-23] MEDS: iohexol 350 mg/mL 500 mL Btl (per mL) IV (04:01)
[2023-03-23 04:14] LABS: Alanine Aminotransferase 91 U/L (0-41); Albumin Level 4.6 g/dL (3.5-5.2); Alcohol Level 30 mg/dL (0-10); Alkaline Phosphatase 106 U/L (40-130); Anion Gap 34.4 (5-19); Aspartate Amino Transferase 134 U/L (0-40); Blood Urea Nitrogen 10 mg/dL (6-20); Calcium 9.1 mg/dL (8.5-10.5); Carbon Dioxide 12 mmol/L (22-29); Chloride 80 mmol/L (98-107); Glomerular Filtration Rate 156.1 mL/min (90-130); Glucose 72 mg/dL (65-115); Magnesium 1.6 mg/dL (1.7-2.3); Osmolality Calculated 254 mOsm/kg (285-295); Potassium 3.4 mmol/L (3.5-5.1); Sodium 123 mmol/L (136-145); Total Bilirubin 1.5 mg/dL (0.15-1.2); Total Protein 7.6 g/dL (6.6-8.7)
[2023-03-23 04:22] LABS: Lipase 719 U/L (13-60)
[2023-03-23 04:23] LABS: Lactic Sepsis W/Reflex 4.6 mmol/L (0.5-2.2)
[2023-03-23] MEDS: LORazepam 2 mg/mL INJ 1 mL 1 MG IVP (04:37)
[2023-03-23] MEDS: morphine 4 mg/mL SDV 1 mL IVP ×2 (04:37→06:09)
[2023-03-23 05:40] LABS: Reflex Lactate Order REFLEX LACTIC ORDERD
--- NOTE | 2023-03-23 06:40 | PM.HP ---
Providers/Chief Complaint Admitting Physician: Yamilet Davis MD Primary Care Provider: Antonio Alvarado MD Chief Complaint: ABD PAIN History of Present Illness Buddy Cowan is a 32 year old male with h/o PTSD, anxiety d/o, chronic pancreatitis, Chronic alcohol abuser HTN, depression, insomnia presented with c/o abdominal pain since 4 days. He has been actively drinking induced by stress.last drink was 2 days ago. He reports feeling nauseous and vomited once, not able to tolerate food. He has been admitted for similar complaints in the past. denies any fever, SOB, chest pain, urinary or bowel complaints. Review of Systems General: Reports: 10 or more systems reviewed and unremarkable except in HPI and below GI: Reports: nausea and vomiting Medications/Allergies Home Medications Medication Instructions Recorded Confirmed Last Taken Type lisinopril 40 mg tablet 40 mg PO QAM 01/30/21 03/23/23 01/30/21 History digestive enzymes 1 tab PO .UP TO TWICE A DAY 01/18/22 03/23/23 Unknown History resveratrol 250 mg capsule 250 - 500 mg PO DAILY PRN 01/18/22 03/23/23 Unknown History Inflammation metoclopramide HCl 10 mg tablet 10 mg PO Q6H PRN nausea and 05/20/22 03/23/23 Unknown Rx (Reglan) vomiting #90 tabs clonidine HCl 0.1 mg tablet 0.1 mg PO BID PRN Blood Pressure 09/16/22 03/23/23 Unknown History Nu-Salt See Rx Instructions .Route .COMPLEX 11/30/22 03/23/23 Unknown History multivitamin 15 ml PO DAILY 11/30/22 03/23/23 Unknown History magnesium hydroxide 400 mg/5 mL 30 ml PO BID PRN Constipation 12/22/22 03/23/23 Unknown History oral suspension (Milk of Magnesia) omeprazole 40 mg capsule,delayed 40 mg PO QAM #90 caps 01/18/23 03/23/23 Unknown Rx release trazodone 50 mg tablet 25 mg PO BEDTIME PRN Sleep #45 tabs 02/27/23 03/23/23 Unknown Rx minocycline 100 mg capsule 100 mg PO BID folliculitis #14 caps 03/09/23 03/23/23 Unknown Rx mirtazapine 15 mg tablet 15 mg PO .qhs #30 tabs 03/09/23 03/23/23 Unknown Rx Thc Gummies See Rx Instructions .Route .COMPLEX 03/23/23 03/23/23 Unknown History Allergies Allergy/AdvReac Type Severity Reaction Status Date / Time aspirin Allergy Unknown ADR-Gastrointestinal Verified 03/23/23 08:49 Upset NSAIDS (Non-Steroidal Allergy Unknown Unknown Verified 03/23/23 08:49 Anti-Inflamma acetaminophen [From Tylenol] Allergy ADR-Gastrointestinal Verified 03/23/23 08:49 Upset zolpidem [From Ambien] Allergy ADR-Nightma Verified 03/23/23 08:49 re buspirone AdvReac Intermediate ADR-Anxiety Verified 03/23/23 08:49 PFSH Acute PFSH: Medical History Acute on chronic pancreatitis Acute posttraumatic stress disorder Alcohol abuse Anxiety and depression Folliculitis GERD (gastroesophageal reflux disease) Gynecomastia, male Hyperlipidemia Hypertension Marital/partner relational problem Panic attack Transaminitis Surgical History No pertinent past surgical history Family History Father Hypertension Social History Smoking and tobacco status: never smoked Alcohol intake: current Alcohol intake frequency: 0-2 Drinks per Day Substance/Drug Use: never Marital status: Number of children: 5 Current occupational status: employed Current gender identity: Male Vitals/I&O/Wt Last Vital Signs Temp 98.4 F 03/23/23 03:34 Pulse 108 H 03/23/23 06:24 Resp 18 03/23/23 06:24 BP 167/112 03/23/23 05:21 Pulse Ox 97 03/23/23 06:24 O2 Del Method Room Air 03/23/23 06:24 Weight last 48 hrs Weight 104.326 kg Physical Exam Narrative: AAox3, cooperative, in mild duistress due to pain. Chest clear to ascultation b/l CVS NAD Abd soft, distended, tender diffusely but more in epigastric area, bowel sounds normal. Ext no edema Data 03/23/23 03:48 03/23/23 03:48 CT Abd/Pel: Radiologist's impression: Acute interstitial edematous pancreatitis. No sign of necrosis or hemorrhage. 2. ? Hepatomegaly and severe hepatic steatosis. 3. ? 2.4 cm mass in the right lobe of the liver with suggestive imaging features of hemangioma. The lesion is stable in size since 02/19/2021. A&P Assessment and plan (1) Pancreatitis: due to chronic alcohol abuse Qualifiers: Chronicity: acute (2) Acute on chronic pancreatitis: due to chronic alcoholism Plan admit to medical floor NPO for now IV fluids D1/ at 100ml/hr IV morphine 2mg q4h prn IV zofran 4mg q8h prn IV pantoprazole 40mg bid resume home medications. DVT ppx SCD full code recheck labs in am Attestations Medical Necessity Statement*: need Iv fluids and pain medications for acute pancreatitis. Time Spent in Patient Care: 30min Coding Level of Care Code 74406 Diagnoses Pancreatitis K85.90 Chronicity: acute Acute on chronic pancreatitis K85.90; K86.1 Time Spent (min) 30
[2023-03-23] MEDS: dextrose 5%-sod chloride 0.45% 1,000 ML 100 ML IV (07:31)
[2023-03-23 07:42] LABS: Lactic Acid level (Lactate) 1.5 mmol/L (0.5-2.2)
[2023-03-23 07:55] LABS: Add Urine Microscopic? NO; Charge for UA Resulting for Rev
[2023-03-23 08:02] LABS: Bilirubin Urine Neg (Negative); Blood Urine Neg (Negative); Glucose Urine UA Norm (Normal); Ketones Urine 1+ (Negative); Leukocyte Esterase Urine Negative (Negative); Nitrate Urine Negative (Negative); Protein Urine Neg (Negative); Specific Gravity, Urine 1.015 (1.005-1.030); Urine Appearance Clear (CLEAR); Urine Color Yellow (Yellow); Urobilinogen Urine Norm (Negative); pH Urine 5 (5-7)
[2023-03-23] MEDS: thiamine 100 mg Tablet PO (08:08)
[2023-03-23] MEDS: multivitamin therapeutic Tablet 1 TAB PO (08:08)
[2023-03-23] MEDS: folic acid 1 mg Tablet PO (08:08)
[2023-03-23] MEDS: pantoprazole 40 mg SDV IVP ×2 (08:09→17:19)
[2023-03-23] MEDS: metoprolol succinate ER (24 HR) 50 mg Tablet PO (08:09)
[2023-03-23] MEDS: ondansetron 2 mg/ML SDV 2 mL 4 MG IVP ×2 (08:17→19:24)
[2023-03-23 08:20] LABS: Amphetamines Screen Urine Negative (Negative); Barbiturates Screen Urine Negative (Negative); Benzodiazepines Screen Urine Negative (Negative); Cocaine Screen Urine Negative (Negative); Opiate Screen Urine Positive (Negative); PCP Screen Urine Negative (Negative); THC Screen Urine Negative (Negative)
[2023-03-23] MEDS: morphine 4 mg/mL SDV 1 mL 2 MG IVP (08:31)
--- NOTE | 2023-03-23 09:46 | MR_ITS ---
WS: [id number] MRI/MRCP OF THE ABDOMEN WITHOUT GADOLINIUM ENHANCEMENT TECHNIQUE: Coronal T2 Fase BH, Axial T2 Fase BH, Axial T2 FS BH, Zxial 3D Hendrix BH, Axial DWI BH, 2D MRCP Radial BH, 3D MRCP (Resp), and Axial 3D Dyn BH Post sequences. CLINICAL INFORMATION: Pancreatitis with gall bladder sludge COMPARISON: CT March 23, 2023 and MRCP May 05, 2022 FINDINGS: Diffuse fatty infiltration liver. Hepatomegaly. T2 hyperintense lesion RIGHT hepatic lobe inferiorly most likely hemangioma unchanged. Normal portal vein and splenic vein. Mild inflammatory stranding an d edema about the pancreas compatible with acute pancreatitis. No evidence of pancreatic mass. No barrett creatic necrosis. No drainable fluid collections or pseudocysts. Mild fluid distention of the gallbla dder. No cholelithiasis. Normal common bile duct. No significant pancreatic ductal dilatation. Tiny esophageal hiatal hernia. Adrenal glands are normal. Normal renal parenchymal enhancement. No hy dronephrosis. Normal spleen. Normal upper abdominal aorta.. Celiac and SMA are patent. MR/MR MRCP [id number] Impression: 1. Mild diffuse edema involving the pancreas compatible with acute pancreatiti s. This is similar to the recent CT. 2. No drainable fluid collections or pseudocyst. 3. Normal common bile duct and pancreatic duct. 4. No visualized cholelithiasis. Gallbladder otherwise normal. 5. Stable hemangioma RIGHT hepatic lobe. 6. Hepatomegaly with diffuse fatty infiltration of the liver. 7. No other acute findings.
[2023-03-23] MEDS: LORazepam 2 mg/mL INJ 1 mL IM (09:59)
[2023-03-23] MEDS: sodium chloride 0.9% 1,000 ML 100 ML IV ×2 (10:04→19:58)
[2023-03-23] MEDS: folic acid 1 MG, multivitamin inj 10 ML, thiamine 100 MG in sodium chloride 0.9% 1,000 ML 252.8 MG IV (10:13)
[2023-03-23] MEDS: HYDROmorphone 1 mg/mL INJ 1 mL 0.2 MG IVP ×2 (12:24→19:25)
--- NOTE | 2023-03-23 14:35 | W.PM.EVENTAC ---
Event Note Event Note: Admitted overnight. H&P and labs appreciated. Lying comfortably in bed. Complaining of pain. Complaining of nausea. States he feels as if his heart will come out of his chest. Complaining of palpitations, tremors, mild headache. States he thinks he is going into alcohol withdrawal. Labs appreciated for high anion gap metabolic acidosis with hyponatremia, hypokalemia, elevated lactate on admission which has resolved, abnormal AST and ALT with normal alkaline phosphatase. CT abdomen pelvis appreciated for extensive gallbladder sludge. Plan: Start on normal saline at 100 cc/h. Change pain medication to Dilaudid 0.2 mg every 4 hourly. WA protocol. Banana bag. MRCP to rule out gallbladder pathology though unlikely. Keep NPO.
[2023-03-23] MEDS: cloNIDine 0.1 mg Tablet PO (20:01)
[2023-03-23] MEDS: mirtazapine 15 mg Tablet PO (20:01)
[2023-03-24] VITALS (13 sets, daily range): BP systolic 138–150; BP diastolic 88–99; PULSE 72–103; RESP 16–20; TEMP 36.4–37; O2SAT 97–98
[2023-03-24] MEDS: HYDROmorphone 1 mg/mL INJ 1 mL 0.2 MG IVP ×7 (00:34→22:37)
[2023-03-24 05:06] LABS: Basophils % 0.4 %; Eosinophils % 0.6 %; Hematocrit 34.7 % (42.0-52.0); Hemoglobin 12.1 g/dL (11.7-16.6); Lymphocytes # 1.1 10^3/uL (0.8-4.8); Lymphocytes % 22.4 %; Mean Corpuscular HGB Conc 34.9 g/dL (30.0-36.0); Mean Corpuscular Hemoglobin 33.9 pg (28.0-34.0); Mean Corpuscular Volume 97.2 fl (80-94); Monocytes # 0.5 10^3/uL (0.2-0.9); Monocytes % 9.6 %; Neutrophils # 3.35 10^3/uL (1.8-7.7); Neutrophils % 66.8 %; Nucleated Red Blood Cells % 0 %; Platelet Count 65 10^3/cmm (130-400); Red Blood Count 3.57 10^6/uL (4.1-5.3); Red Cell Distribution Width 12.2 % (12.1-15.1)
[2023-03-24 05:28] LABS: Alanine Aminotransferase 60 U/L (0-41); Albumin Level 3.8 g/dL (3.5-5.2); Alkaline Phosphatase 81 U/L (40-130); Aspartate Amino Transferase 90 U/L (0-40); Blood Urea Nitrogen 10 mg/dL (6-20); Calcium 8.5 mg/dL (8.5-10.5); Carbon Dioxide 20 mmol/L (22-29); Chloride 95 mmol/L (98-107); Globulin 2.2 g/dL (1.3-4.6); Glomerular Filtration Rate 156.1 mL/min (90-130); Glucose 68 mg/dL (65-115); Magnesium 1.8 mg/dL (1.7-2.3); Osmolality Calculated 271 mOsm/kg (285-295); Phosphorus 2.2 mg/dL (2.5-4.5); Slide Review Slide Review Perform; Sodium 132 mmol/L (136-145); Total Bilirubin 1.2 mg/dL (0.15-1.2)
[2023-03-24 05:29] LABS: Anion Gap 20.3 (5-19); Potassium 3.3 mmol/L (3.5-5.1)
[2023-03-24] MEDS: lisinopril 20 mg Tablet 40 MG PO (05:29)
[2023-03-24] MEDS: sodium chloride 0.9% 1,000 ML 100 ML IV ×2 (05:29→16:02)
[2023-03-24 05:36] LABS: Lipase 990 U/L (13-60)
[2023-03-24] MEDS: thiamine 100 mg Tablet PO (08:51)
[2023-03-24] MEDS: metoprolol succinate ER (24 HR) 50 mg Tablet PO (08:51)
[2023-03-24] MEDS: cloNIDine 0.1 mg Tablet PO (08:51)
[2023-03-24] MEDS: multivitamin therapeutic Tablet 1 TAB PO (08:52)
[2023-03-24] MEDS: folic acid 1 mg Tablet PO (08:52)
[2023-03-24] MEDS: ondansetron 2 mg/ML SDV 2 mL 4 MG IVP (08:57)
[2023-03-24] MEDS: cloNIDine 0.1 mg/24 hr Patch 1 PATCH TRANSDERMA (12:36)
--- NOTE | 2023-03-24 16:38 | PM.PN ---
Subjective Subjective: On examination today patient sitting up in bed. Looks in mild distress. States pain continues to bother him. Has nausea but no vomiting. Wanting to try liquid diet today. Asking for more frequent pain medications. We discussed of starting some oral pain medications but he is reluctant and wants to continue with more frequent IV pain medications. Denies tremors or hallucinations today. Looks dehydrated. Blood was appreciated for stable CBC, improving BMP with resolving hyponatremia, hypokalemia, high anion gap metabolic acidosis. Vitals/I&O/Wt Last Vital Signs Temp 98.6 F 03/24/23 15:35 Pulse 97 03/24/23 15:35 Resp 17 03/24/23 15:35 BP 138/88 03/24/23 15:35 Pulse Ox 97 03/24/23 15:35 O2 Del Method Room Air 03/23/23 12:00 03/24/23 03/24/23 03/24/23 06:59 14:59 22:59 Intake Total 951.667 / 3952.867 120 / 120 1000 / 1120 Output Total 800 / 800 1200 / 1200 Balance 151.667 / 3152.867 -1080 / -1080 1000 / -80 Weight last 48 hrs Weight 104.326 kg Physical Exam Narrative: General: AAox3, cooperative, in mild duistress due to pain, dehydrated. Chest: Clear to ascultation b/l Cardiovascular: S1-S2 regular, no added sounds, no tachycardia Abd: Soft, distended, tender diffusely but more in epigastric area, bowel sounds sluggish. Ext no edema Data 03/24/23 04:29 03/24/23 04:29 A&P Assessment and plan (1) Pancreatitis: due to chronic alcohol abuse Qualifiers: Chronicity: acute (2) Acute on chronic pancreatitis: due to chronic alcoholism (3) Thrombocytopenia: (4) High anion gap metabolic acidosis: (5) Hypokalemia: (6) Hyponatremia: (7) Alcohol abuse: Plan Acute on chronic pancreatitis: Gallbladder pathology ruled out with MRCP. Most likely in setting of chronic alcohol abuse. Alcohol levels elevated on admission. Continue with IV hydration. Patient wants to give trial of diet today. Start on clear liquid diet. Switch from current pain regimen to more frequent low-dose. Start on IV Dilaudid 0.2 mg every 3 hourly as needed. Patient does not want to be started on oral pain medications. IV Protonix daily, Zofran as needed. Hyponatremia/hypokalemia/high anion gap metabolic acidosis: Most likely in setting of dehydration along with alcohol abuse. Resolving. Continue with IV hydration with normal saline at 20 mEq of potassium at 100 cc/h. Hypertension: Continue with lisinopril at home dose. Goal blood pressure less than 140/90 mmHg. Switch from oral clonidine to clonidine 0.1 patch. Continue with home mirtazapine and trazodone as needed. Alcohol abuse: CIWA protocol. Full code. Clear liquid diet. Protonix OPD prophylaxis. Heparin for DVT prophylaxis. Attestations Medical Necessity Statement*: Requires further hospitalization for management of acute on chronic pancreatitis requiring IV pain medications while diet is advanced Diagnoses Pancreatitis K85.90 Chronicity: acute Acute on chronic pancreatitis K85.90; K86.1 Thrombocytopenia D69.6 High anion gap metabolic acidosis E87.29 Hypokalemia E87.6 Hyponatremia E87.1 Alcohol abuse F10.10
[2023-03-24] MEDS: sodium chlor 0.9% + KCl 20 mEq 20 MEQ/1,000 ML BAG 100 MEQ IV (17:51)
[2023-03-24] MEDS: pantoprazole 40 mg SDV IVP (17:52)
[2023-03-24] MEDS: heparin 5,000 unit/mL INJ 1 mL 5000 UNIT SUBCUT (17:52)
[2023-03-24] MEDS: mirtazapine 15 mg Tablet PO (21:04)
[2023-03-25] VITALS (8 sets, daily range): BP systolic 136–159; BP diastolic 91–107; PULSE 71–93; RESP 16–18; TEMP 36.5–36.9; O2SAT 98–100
[2023-03-25] MEDS: heparin 5,000 unit/mL INJ 1 mL 5000 UNIT SUBCUT ×2 (00:59→08:41)
[2023-03-25] MEDS: HYDROmorphone 1 mg/mL INJ 1 mL 0.2 MG IVP ×3 (02:08→09:29)
[2023-03-25] MEDS: ondansetron 2 mg/ML SDV 2 mL 4 MG IVP (02:08)
[2023-03-25] MEDS: sodium chlor 0.9% + KCl 20 mEq 20 MEQ/1,000 ML BAG 100 MEQ IV (02:11)
[2023-03-25 05:17] LABS: Basophils % 0.6 %; Eosinophils # 0.1 10^3/uL (0.0-0.8); Eosinophils % 1.8 %; Hematocrit 38.6 % (42.0-52.0); Hemoglobin 12.9 g/dL (11.7-16.6); Lymphocytes # 1.3 10^3/uL (0.8-4.8); Lymphocytes % 38.7 %; Mean Corpuscular HGB Conc 33.4 g/dL (30.0-36.0); Mean Corpuscular Hemoglobin 32.7 pg (28.0-34.0); Mean Platelet Volume 11.6 fL (7.4-10.4); Monocytes # 0.3 10^3/uL (0.2-0.9); Monocytes % 9.4 %; Neutrophils # 1.68 10^3/uL (1.8-7.7); Neutrophils % 49.2 %; Nucleated Red Blood Cells % 0 %; Platelet Count 60 10^3/cmm (130-400); Red Blood Count 3.94 10^6/uL (4.1-5.3); Red Cell Distribution Width 11.9 % (12.1-15.1); White Blood Count 3.4 10^3/uL (4.0-10.0)
[2023-03-25 05:37] LABS: Alanine Aminotransferase 86 U/L (0-41); Albumin Level 3.8 g/dL (3.5-5.2); Alkaline Phosphatase 97 U/L (40-130); Anion Gap 21.9 (5-19); Aspartate Amino Transferase 125 U/L (0-40); Blood Urea Nitrogen 5 mg/dL (6-20); Calcium 8.7 mg/dL (8.5-10.5); Carbon Dioxide 20 mmol/L (22-29); Chloride 96 mmol/L (98-107); Globulin 2.7 g/dL (1.3-4.6); Glomerular Filtration Rate 249.3 mL/min (90-130); Glucose 63 mg/dL (65-115); Osmolality Calculated 275 mOsm/kg (285-295); Sodium 135 mmol/L (136-145); Total Protein 6.5 g/dL (6.6-8.7)
[2023-03-25] MEDS: lisinopril 20 mg Tablet 40 MG PO (05:43)
[2023-03-25] MEDS: pantoprazole 40 mg SDV IVP (05:43)
[2023-03-25 05:48] LABS: Potassium 2.9 mmol/L (3.5-5.1)
[2023-03-25] MEDS: potassium chloride ER 20 mEq Tablet 40 MEQ PO (06:22)
[2023-03-25] MEDS: metoprolol succinate ER (24 HR) 50 mg Tablet PO (08:41)
--- NOTE | 2023-03-25 12:10 | P.DS_ITS ---
Discharge Providers Date of Admission: 03/23/23 05:52 Date of Discharge: March 25, 2023 Attending Provider at Admission: Yamilet Davis MD Attending Provider at Discharge: Tony Reagan MD Primary Care Provider: Antonio Alvarado MD Diagnoses at Discharge Discharge Diagnosis (1) Pancreatitis: Status: Acute Qualifiers: Chronicity: acute (2) Acute on chronic pancreatitis: Status: Acute (3) Thrombocytopenia: Status: Acute (4) High anion gap metabolic acidosis: Status: Acute (5) Hypokalemia: Status: Acute (6) Hyponatremia: Status: Acute (7) Alcohol abuse: Status: Acute Reason for Visit Reason for Visit: ABD PAIN Discharge Data Studies Completed and Pending Completed Studies During Hospitalization Category Date Time Status CT abdomen pelvis w con* [id number] Stat Cat Scan 03/23/23 03:38 Completed MR MRCP [id number] Routine MRI 03/23/23 09:46 Completed Radiology Impressions Abdomen/Pelvis CT 03/23/23 03:38 IMPRESSION: 1. Acute interstitial edematous pancreatitis. No sign of necrosis or hemorrhage. 2. Hepatomegaly and severe hepatic steatosis. 3. 2.4 cm mass in the right lobe of the liver with suggestive imaging features of hemangioma. The lesion is stable in size since 02/19/2021. 4. Incidental findings above. Cholangiopancreatography MRI 03/23/23 09:46 Impression: 1. Mild diffuse edema involving the pancreas compatible with acute pancreatitis. This is similar to the recent CT. 2. No drainable fluid collections or pseudocyst. 3. Normal common bile duct and pancreatic duct. 4. No visualized cholelithiasis. Gallbladder otherwise normal. 5. Stable hemangioma RIGHT hepatic lobe. 6. Hepatomegaly with diffuse fatty infiltration of the liver. 7. No other acute findings. Laboratory Results WBC 3.4 10^3/uL (4.0-10.0) L 03/25/23 05:02 RBC 3.94 10^6/uL (4.1-5.3) L 03/25/23 05:02 Hgb 12.9 g/dL (11.7-16.6) 03/25/23 05:02 Hct 38.6 % (42.0-52.0) L 03/25/23 05:02 MCV 98.0 fl (80-94) H 03/25/23 05:02 MCH 32.7 pg (28.0-34.0) 03/25/23 05:02 MCHC 33.4 g/dL (30.0-36.0) 03/25/23 05:02 RDW 11.9 % (12.1-15.1) L 03/25/23 05:02 Plt Count 60 10^3/cmm (130-400) L 03/25/23 05:02 MPV 11.6 fL (7.4-10.4) H 03/25/23 05:02 Neut % (Auto) 49.2 % 03/25/23 05:02 Lymph % (Auto) 38.7 % 03/25/23 05:02 [place] % (Auto) 9.4 % 03/25/23 05:02 Eos % (Auto) 1.8 % 03/25/23 05:02 Baso % (Auto) 0.6 % 03/25/23 05:02 Neut # (Auto) 1.68 10^3/uL (1.8-7.7) L 03/25/23 05:02 Lymph # (Auto) 1.3 10^3/uL (0.8-4.8) 03/25/23 05:02 [place] # (Auto) 0.3 10^3/uL (0.2-0.9) 03/25/23 05:02 Eos # (Auto) 0.1 10^3/uL (0.0-0.8) 03/25/23 05:02 Baso # (Auto) 0.0 10^3/uL (0.0-0.1) 03/25/23 05:02 Nucleated RBC % (auto) 0 % 03/25/23 05:02 Nucleated RBCs # 0.0 /100WBC 03/25/23 05:02 Sodium 135 mmol/L (136-145) L 03/25/23 05:02 Potassium 2.9 mmol/L (3.5-5.1) L 03/25/23 05:02 Chloride 96 mmol/L (98-107) L 03/25/23 05:02 Carbon Dioxide 20 mmol/L (22-29) L 03/25/23 05:02 Anion Gap 21.9 (5-19) H 03/25/23 05:02 BUN 5 mg/dL (6-20) L 03/25/23 05:02 Creatinine 0.4 mg/dL (0.7-1.2) L 03/25/23 05:02 GFR Calculation 249.3 mL/min (90-130) H 03/25/23 05:02 Glucose 63 mg/dL (65-115) L 03/25/23 05:02 Calculated Osmolality 275 mOsm/kg (285-295) L 03/25/23 05:02 Lactic Acid 4.6 mmol/L (0.5-2.2) H* 03/23/23 03:48 Lactic Acid (Sepsis) 1.5 mmol/L (0.5-2.2) 03/23/23 07:13 Calcium 8.7 mg/dL (8.5-10.5) 03/25/23 05:02 Phosphorus 2.2 mg/dL (2.5-4.5) L 03/24/23 04:29 Magnesium 1.8 mg/dL (1.7-2.3) 03/24/23 04:29 Total Bilirubin 1.0 mg/dL (0.15-1.2) 03/25/23 05:02 AST 125 U/L (0-40) H 03/25/23 05:02 ALT 86 U/L (0-41) H 03/25/23 05:02 Alkaline Phosphatase 97 U/L (40-130) 03/25/23 05:02 Total Protein 6.5 g/dL (6.6-8.7) L 03/25/23 05:02 Albumin 3.8 g/dL (3.5-5.2) 03/25/23 05:02 Globulin 2.7 g/dL (1.3-4.6) 03/25/23 05:02 Lipase 990 U/L (13-60) H 03/24/23 04:29 Procalcitonin 0.30 ng/mL (0-0.5) 03/23/23 03:48 Urine Color Yellow (Yellow) 03/23/23 07:15 Urine Appearance Clear (CLEAR) 03/23/23 07:15 Urine pH 5 (5-7) 03/23/23 07:15 Ur Specific [place] 1.015 (1.005-1.030) 03/23/23 07:15 Urine Protein Neg (Negative) 03/23/23 07:15 Urine Glucose (UA) Norm (Normal) 03/23/23 07:15 Urine Ketones 1+ (Negative) H 03/23/23 07:15 Urine Blood Neg (Negative) 03/23/23 07:15 Urine Nitrate Negative (Negative) 03/23/23 07:15 Urine Bilirubin Neg (Negative) 03/23/23 07:15 Urine Urobilinogen Norm mg/dL (Negative) 03/23/23 07:15 Ur Leukocyte Esterase Negative (Negative) 03/23/23 07:15 Urine Opiates Screen Positive ng/mL (Negative) H 03/23/23 07:15 Ur Barbiturates Screen Negative ng/mL (Negative) 03/23/23 07:15 Ur Phencyclidine Scrn Negative ng/mL (Negative) 03/23/23 07:15 Ur Amphetamines Screen Negative ng/mL (Negative) 03/23/23 07:15 U Benzodiazepines Scrn Negative ng/mL (Negative) 03/23/23 07:15 Urine Cocaine Screen Negative ng/mL (Negative) 03/23/23 07:15 U Marijuana (THC) Screen Negative ng/mL (Negative) 03/23/23 07:15 Ethyl Alcohol 30 mg/dL (0-10) H 03/23/23 03:48 Vitals Last Vital Signs Temp 98.5 F 03/25/23 11:42 Pulse 71 03/25/23 11:42 Resp 16 03/25/23 11:42 BP 150/103 03/25/23 11:42 Pulse Ox 98 03/25/23 11:42 O2 Del Method Room Air 03/25/23 11:42 Discharge Plan Discharge Patient Disposition: Home Condition: Stable Prescriptions: No Action digestive enzymes Tablet 1 tab PO .UP TO TWICE A DAY resveratrol 250 mg capsule 250 - 500 mg PO DAILY PRN (Reason: Inflammation) mirtazapine 15 mg tablet 15 mg PO .qhs Qty: 30 0RF minocycline 100 mg capsule 100 mg PO BID Qty: 14 0RF metoclopramide HCl [Reglan] 10 mg tablet 10 mg PO Q6H PRN (Reason: nausea and vomiting) Qty: 90 1RF omeprazole 40 mg capsule,delayed release(DR/EC) 40 mg PO QAM Qty: 90 0RF trazodone 50 mg tablet 25 mg PO BEDTIME PRN (Reason: Sleep) Qty: 45 0RF lisinopril 40 mg Tablet 40 mg PO QAM clonidine HCl 0.1 mg tablet 0.1 mg PO BID PRN (Reason: Blood Pressure) magnesium hydroxide [Milk of Magnesia] 400 mg/5 mL Suspension 30 ml PO BID PRN (Reason: Constipation) multivitamin Liquid 15 ml PO DAILY Nu-Salt See Rx Instructions .ROUTE .COMPLEX Rx Instructions: prn Thc Gummies See Rx Instructions .ROUTE .COMPLEX Rx Instructions: as directed Referrals: Antonio Alvarado MD [Primary Care Provider] - Patient Instructions: Opioid Safety Coding Level of Care Code Acute Code for Chg Fwd Diagnoses Pancreatitis K85.90 Chronicity: acute Acute on chronic pancreatitis K85.90; K86.1 Thrombocytopenia D69.6 High anion gap metabolic acidosis E87.29 Hypokalemia E87.6 Hyponatremia E87.1 Alcohol abuse F10.10
--- NOTE | 2023-03-25 12:31 | P.DS_ITS ---
Discharge Providers Date of Admission: 03/23/23 05:52 Date of Discharge: March 25, 2023 Attending Provider at Admission: Yamilet Davis MD Attending Provider at Discharge: Tony Reagan MD Primary Care Provider: Antonio Alvarado MD Diagnoses at Discharge Discharge Diagnosis (1) Pancreatitis: Status: Acute Qualifiers: Chronicity: acute (2) Acute on chronic pancreatitis: Status: Acute (3) Thrombocytopenia: Status: Acute (4) High anion gap metabolic acidosis: Status: Acute (5) Hypokalemia: Status: Acute (6) Hyponatremia: Status: Acute (7) Alcohol abuse: Status: Acute Reason for Visit Reason for Visit: ABD PAIN Brief History: History as per HPI: Buddy Cowan is a 32 year old male with h/o PTSD, anxiety d/o, chronic pancreatitis, Chronic alcohol abuser HTN, depression, insomnia presented with c/o abdominal pain since 4 days. He has been actively drinking induced by stress.last drink was 2 days ago. He reports feeling nauseous and vomited once, not able to tolerate food. He has been admitted for similar complaints in the past. denies any fever, SOB, chest pain, urinary or bowel complaints. Hospital Course Hospital Course Patient was admitted to the hospital further evaluation and management of acute on chronic pancreatitis. He was started on conservative treatment with IV hydration and n.p.o. Gallbladder pathology was ruled out with a negative CT abdomen and MRCP. With conservative treatment gradually patient started improving and tolerated clear liquid diet for around 24 hours. He has been discharged in medically stable condition advised to abstain from alcohol use, continue follow liquid diet for next 2 to 3 days and advance GI soft and eventually to a regular diet within next 1 week. Patient is to follow- up with a primary care provider within next 1 week for repeat BMP. Physical Exam Narrative: General: AAox3, cooperative, in mild duistress due to pain, dehydrated. Chest: Clear to ascultation b/l Cardiovascular: S1-S2 regular, no added sounds, no tachycardia Abd: Soft, distended, tender diffusely but more in epigastric area, bowel sounds sluggish. Ext no edema Discharge Data Studies Completed and Pending Completed Studies During Hospitalization Category Date Time Status CT abdomen pelvis w con* [id number] Stat Cat Scan 03/23/23 03:38 Completed MR MRCP [id number] Routine MRI 03/23/23 09:46 Completed Radiology Impressions Abdomen/Pelvis CT 03/23/23 03:38 IMPRESSION: 1. Acute interstitial edematous pancreatitis. No sign of necrosis or hemorrhage. 2. Hepatomegaly and severe hepatic steatosis. 3. 2.4 cm mass in the right lobe of the liver with suggestive imaging features of hemangioma. The lesion is stable in size since 02/19/2021. 4. Incidental findings above. Cholangiopancreatography MRI 03/23/23 09:46 Impression: 1. Mild diffuse edema involving the pancreas compatible with acute pancrea titis. This is similar to the recent CT. 2. No drainable fluid collections or pseudocyst. 3. Normal common bile duct and pancreatic duct. 4. No visualized cholelithiasis. Gallbladder otherwise normal. 5. Stable hemangioma RIGHT hepatic lobe. 6. Hepatomegaly with diffuse fatty infiltration of the liver. 7. No other acute findings. Laboratory Results WBC 3.4 10^3/uL (4.0-10.0) L 03/25/23 05:02 RBC 3.94 10^6/uL (4.1-5.3) L 03/25/23 05:02 Hgb 12.9 g/dL (11.7-16.6) 03/25/23 05:02 Hct 38.6 % (42.0-52.0) L 03/25/23 05:02 MCV 98.0 fl (80-94) H 03/25/23 05:02 MCH 32.7 pg (28.0-34.0) 03/25/23 05:02 MCHC 33.4 g/dL (30.0-36.0) 03/25/23 05:02 RDW 11.9 % (12.1-15.1) L 03/25/23 05:02 Plt Count 60 10^3/cmm (130-400) L 03/25/23 05:02 MPV 11.6 fL (7.4-10.4) H 03/25/23 05:02 Neut % (Auto) 49.2 % 03/25/23 05:02 Lymph % (Auto) 38.7 % 03/25/23 05:02 [place] % (Auto) 9.4 % 03/25/23 05:02 Eos % (Auto) 1.8 % 03/25/23 05:02 Baso % (Auto) 0.6 % 03/25/23 05:02 Neut # (Auto) 1.68 10^3/uL (1.8-7.7) L 03/25/23 05:02 Lymph # (Auto) 1.3 10^3/uL (0.8-4.8) 03/25/23 05:02 [place] # (Auto) 0.3 10^3/uL (0.2-0.9) 03/25/23 05:02 Eos # (Auto) 0.1 10^3/uL (0.0-0.8) 03/25/23 05:02 Baso # (Auto) 0.0 10^3/uL (0.0-0.1) 03/25/23 05:02 Nucleated RBC % (auto) 0 % 03/25/23 05:02 Nucleated RBCs # 0.0 /100WBC 03/25/23 05:02 Sodium 135 mmol/L (136-145) L 03/25/23 05:02 Potassium 2.9 mmol/L (3.5-5.1) L 03/25/23 05:02 Chloride 96 mmol/L (98-107) L 03/25/23 05:02 Carbon Dioxide 20 mmol/L (22-29) L 03/25/23 05:02 Anion Gap 21.9 (5-19) H 03/25/23 05:02 BUN 5 mg/dL (6-20) L 03/25/23 05:02 Creatinine 0.4 mg/dL (0.7-1.2) L 03/25/23 05:02 GFR Calculation 249.3 mL/min (90-130) H 03/25/23 05:02 Glucose 63 mg/dL (65-115) L 03/25/23 05:02 Calculated Osmolality 275 mOsm/kg (285-295) L 03/25/23 05:02 Lactic Acid 4.6 mmol/L (0.5-2.2) H* 03/23/23 03:48 Lactic Acid (Sepsis) 1.5 mmol/L (0.5-2.2) 03/23/23 07:13 Calcium 8.7 mg/dL (8.5-10.5) 03/25/23 05:02 Phosphorus 2.2 mg/dL (2.5-4.5) L 03/24/23 04:29 Magnesium 1.8 mg/dL (1.7-2.3) 03/24/23 04:29 Total Bilirubin 1.0 mg/dL (0.15-1.2) 03/25/23 05:02 AST 125 U/L (0-40) H 03/25/23 05:02 ALT 86 U/L (0-41) H 03/25/23 05:02 Alkaline Phosphatase 97 U/L (40-130) 03/25/23 05:02 Total Protein 6.5 g/dL (6.6-8.7) L 03/25/23 05:02 Albumin 3.8 g/dL (3.5-5.2) 03/25/23 05:02 Globulin 2.7 g/dL (1.3-4.6) 03/25/23 05:02 Lipase 990 U/L (13-60) H 03/24/23 04:29 Procalcitonin 0.30 ng/mL (0-0.5) 03/23/23 03:48 Urine Color Yellow (Yellow) 03/23/23 07:15 Urine Appearance Clear (CLEAR) 03/23/23 07:15 Urine pH 5 (5-7) 03/23/23 07:15 Ur Specific [place] 1.015 (1.005-1.030) 03/23/23 07:15 Urine Protein Neg (Negative) 03/23/23 07:15 Urine Glucose (UA) Norm (Normal) 03/23/23 07:15 Urine Ketones 1+ (Negative) H 03/23/23 07:15 Urine Blood Neg (Negative) 03/23/23 07:15 Urine Nitrate Negative (Negative) 03/23/23 07:15 Urine Bilirubin Neg (Negative) 03/23/23 07:15 Urine Urobilinogen Norm mg/dL (Negative) 03/23/23 07:15 Ur Leukocyte Esterase Negative (Negative) 03/23/23 07:15 Urine Opiates Screen Positive ng/mL (Negative) H 03/23/23 07:15 Ur Barbiturates Screen Negative ng/mL (Negative) 03/23/23 07:15 Ur Phencyclidine Scrn Negative ng/mL (Negative) 03/23/23 07:15 Ur Amphetamines Screen Negative ng/mL (Negative) 03/23/23 07:15 U Benzodiazepines Scrn Negative ng/mL (Negative) 03/23/23 07:15 Urine Cocaine Screen Negative ng/mL (Negative) 03/23/23 07:15 U Marijuana (THC) Screen Negative ng/mL (Negative) 03/23/23 07:15 Ethyl Alcohol 30 mg/dL (0-10) H 03/23/23 03:48 Vitals Last Vital Signs Temp 98.5 F 03/25/23 11:42 Pulse 71 03/25/23 11:42 Resp 16 03/25/23 11:42 BP 150/103 03/25/23 11:42 Pulse Ox 98 03/25/23 11:42 O2 Del Method Room Air 03/25/23 11:42 Discharge Plan Discharge Patient Disposition: Home Condition: Stable Prescriptions: New hydrocodone-acetaminophen 5-325 mg tablet 1 tab PO Q8H PRN (Reason: pain) Qty: 14 0RF metoprolol succinate 50 mg Tablet Extended Release 24 Hr 50 mg PO DAILY Qty: 30 0RF Continued digestive enzymes Tablet 1 tab PO .UP TO TWICE A DAY resveratrol 250 mg capsule 250 - 500 mg PO DAILY PRN (Reason: Inflammation) mirtazapine 15 mg tablet 15 mg PO .qhs Qty: 30 0RF trazodone 50 mg tablet 25 mg PO BEDTIME PRN (Reason: Sleep) Qty: 45 0RF lisinopril 40 mg Tablet 40 mg PO QAM clonidine HCl 0.1 mg tablet 0.1 mg PO BID PRN (Reason: Blood Pressure) magnesium hydroxide [Milk of Magnesia] 400 mg/5 mL Suspension 30 ml PO BID PRN (Reason: Constipation) multivitamin Liquid 15 ml PO DAILY Nu-Salt See Rx Instructions .ROUTE .COMPLEX Rx Instructions: prn Thc Gummies See Rx Instructions .ROUTE .COMPLEX Rx Instructions: as directed omeprazole 40 mg capsule,delayed release(DR/EC) 40 mg PO QAM Qty: 90 0RF metoclopramide HCl [Reglan] 10 mg tablet 10 mg PO Q6H PRN (Reason: nausea and vomiting) Qty: 90 1RF Discontinued minocycline 100 mg capsule 100 mg PO BID Qty: 14 0RF Discharge Orders: Discharge Order (Routine); Ordered 03/25/23 Ordered By: Tony Reagan Referrals: Antonio Alvarado MD [Primary Care Provider] - 7-10 days Discharge Diet: Advance as tolerated and Full LIquid Discharge Activity: Resume usual activity and Increase activity as tolerated Patient Instructions: Opioid Safety Activity Restrictions/Additional Instructions: Full liquid diet for next 3 days and then advance to GI soft and eventually to regular diet within next 1 week. Metoprolol has been added to your medication list for better blood pressure control. Please abstain from alcohol use as much as possible. Please follow-up with a primary care provider within next 1 week for repeat BMP. Discharge Attestations Time Spent in Discharge Care*: greater than 30 min Specific Discharge Activities: educating patient, discussing with pcp/other providers, discussing with keycase assembler/social workers/dc planners, documenting/other paperwork and evaluating patient/reviewing data Status at Discharge: Cognitive status at discharge: cognitively intact , Behavioral status at discharge: cooperative , Functional status at discharge: independent ambulation , Overall status at discharge: patient is progressing back to baseline Quality Metrics Clinical Quality Measures [ No reported AMI, CVA or VTE this stay] Coding Level of Care Code 85280 Total time (in minutes) for Discharge: 50 Diagnoses Pancreatitis K85.90 Chronicity: acute Acute on chronic pancreatitis K85.90; K86.1 Thrombocytopenia D69.6 High anion gap metabolic acidosis E87.29 Hypokalemia E87.6 Hyponatremia E87.1 Alcohol abuse F10.10
[2023-03-25] MEDS: potassium chloride ER 20 mEq Tablet 80 MEQ PO (13:46)
== END 2023-03-25 14:04 | disposition home or self-care (01) | DRG 439 ==
LOC: ER 06:07 → MEDSURG 06:08
PROVIDERS: Admitting Provider Internal Medicine; Emergency Provider Emergency Medicine; PCP Family Medicine Adult Medicine; Visit Provider Student in an Organized Health Care Education/Training Program
DX: K85.20 Alcohol induced acute pancreatitis without necrosis or infection (principal); E87.1 Hypo-osmolality and hyponatremia; E87.20 Acidosis, unspecified; K86.0 Alcohol-induced chronic pancreatitis; F10.20 Alcohol dependence, uncomplicated; F43.10 Post-traumatic stress disorder, unspecified; F41.9 Anxiety disorder, unspecified; F32.A Depression, unspecified; K21.9 Gastro-esophageal reflux disease without esophagitis; I10 Essential (primary) hypertension; G47.00 Insomnia, unspecified; D69.6 Thrombocytopenia, unspecified; E86.0 Dehydration; E87.6 Hypokalemia
CPT/HCPCS: 36415; 74177; 74181; 80053; 80306; 80307; 81003; 83605; 83690; 83735; 84100; 84145; 85025; 96361; 96372; 96374; 96375; 96376; 99222; 99285; C9113; J1170; J1644; J2060; J2270; J2405; J3411; J3480; J3490; J7030; J7799; Q9967

== ENCOUNTER 2023-04-13 23:59 | Inpatient (IN) | payer MEDICAID, SELFPAY ==
[2023-04-14] VITALS (25 sets, daily range): BP systolic 122–188; BP diastolic 67–114; PULSE 69–132; RESP 14–23; TEMP 36.6–37.1; O2SAT 91–100; BMI 27.1
--- NOTE | 2023-04-14 00:14 | ED_ITS ---
HPI - Abdominal Pain General: Chief Complaint: ER Hold Stated Complaint: ABD PAIN Time Seen by Provider: 04/14/23 00:14 History of Present Illness: 32-year-old gentleman with history of recurrent pancreatitis and apparent alcohol abuse presenting the emergency department for nausea and vomiting and insomnia. Worse symptoms over the past 4 days. Vomiting and epigastric pain worse with any p.o. intake. He has been drinking alcohol to try and sleep but this makes the pain worse. Intensity is moderate to severe. Similar to prior episodes. No other specific changes in health, exacerbating, or alleviating factors identified. Onset (ago): day(s) Exacerbating factors: eating, vomiting, movement and other (Alcohol abuse) Associated Symptoms: Reports bloating, chills, nausea and poor appetite; Denies coffee ground emesis, hematemesis and melena Review of Systems General: Reports: 10 or more systems reviewed and unremarkable except in HPI and below Const: Reports: chills GI: Reports: nausea and bloating; Denies: hematemesis, coffee ground emesis or melena PFSH ED PFSH: Medical History Acute on chronic pancreatitis Acute posttraumatic stress disorder Alcohol abuse Anxiety and depression Chest pain Chronic nausea Folliculitis GERD (gastroesophageal reflux disease) Gynecomastia, male Hyperlipidemia Hypertension Hypomagnesemia Marital/partner relational problem Panic attack Transaminitis Surgical History No pertinent past surgical history Family History Father Hypertension Social History Smoking and tobacco status: never smoked Alcohol intake: current Alcohol intake frequency: 0-2 Drinks per Day Substance/Drug Use: never Marital status: Number of children: 5 Current occupational status: employed Current gender identity: Male Physical Exam Const: COMMON NORMALS: alert GENERAL APPEARANCE: cooperative, well developed and ill appearing HENMT: COMMON NORMALS: normocephalic and atraumatic HEAD & SCALP: normocephalic and atraumatic Eye: COMMON NORMALS: conjunctivae normal CONJUNCTIVA: Yes conjunctivae normal SCLERA: sclerae normal Neck/C-Spine: COMMON NORMALS: supple GENERAL: Yes trachea midline Resp: COMMON NORMALS: clear to auscultation bilaterally EFFORT & INSPEC TION: Yes able to speak in complete sentences AUSCULTATION: clear to auscultation bilaterally Cardio: COMMON NORMALS: regular rate and regular rhythm RATE: regular rate RHYTHM: regular rhythm GI: COMMON NORMALS: Soft to palpation PALPATION: Yes Soft to palpation, Yes Tenderness to palpation present (GI), Yes Guarding due to palpation present (GI) (Voluntary) and No Rigid due to palpation Extremity: GENERAL: Yes normal exam except as noted and No edema Neuro: COMMON NORMALS: moves all extremities SENSORIUM/ORIENTATION: Yes alert and No Orientation impaired Psych: COMMON NORMALS: mental status grossly normal and Normal thought process present THOUGHT PROCESS: Normal thought process present Course Vital Signs: Vital signs: Vital Signs Temperature 98.1 F 04/17/23 12:20 Pulse Rate 77 04/17/23 12:20 Respiratory Rate 18 04/17/23 12:20 Blood Pressure 135/93 04/17/23 12:20 Pulse Oximetry 95 04/17/23 12:20 Oxygen Delivery Me thod Room Air 04/17/23 08:00 MDM - Abdominal Pain Medical Decision Making 32-year-old gentleman with history of recurrent pancreatitis presenting for epigastric pain consistent with prior episodes of pancreatitis. He is mildly ill-appearing however nontoxic. He is retching at times. Abdominal exam with no evidence of acute surgical abdomen. Labs notable for no leukocytosis, normal hemoglobin. Thrombocytopenia again noted. Metabolic panel with dehydration. Inseminated's and elevated bilirubin consistent with alcohol abuse. Lipase is elevated. No UTI. CT abdomen and pelvis demonstrate mild acute pancreatitis with gastritis. Additional findings noted. Patient treated with multiple rounds of analgesia and antiemetic as well as IV fluids. Despite this patient has had recurrence of symptoms and only mild transient relief. He is unable to tolerate p.o. intake and therefore requires inpatient management. The results of ED evaluation were discussed with the patient including plan for admission due to requirement for level of care not available if discharged to prevent significant worsening/deterioration. Patient agreeable with plan. Discussed with hospitalist service who was agreeable to admit patient. Medical Records I reviewed the patient's medical records. Lab Data I reviewed the patient's lab results. 04/17/23 05:04 04/17/23 05:04 Labs/Radiology: Radiology Impressions Abdomen/Pelvis CT 04/14/23 02:34 IMPRESSION: 1. Findings consistent with mild acute pancreatitis. 2. Findings raising suspicion for gastritis. Recommend clinical correlation. Further evaluation with upper endoscopy recommended as clinically indicated. 3. Stable marked hepatomegaly and stable marked fatty infiltration of the liver. Chest X-Ray 04/14/23 13:48 IMPRESSION: Satisfactory placement RIGHT sided PICC line. Laboratory Results WBC 4.9 10^3/uL (4.0-10.0) 04/14/23 02:10 Corrected WBC Cancelled 04/14/23 00:58 RBC 4.10 10^6/uL (4.1-5.3) 04/14/23 02:10 Hgb 13.7 g/dL (11.7-16.6) 04/14/23 02:10 Hct 38.8 % (42.0-52.0) L 04/14/23 02:10 MCV 94.6 fl (80-94) H 04/14/23 02:10 MCH 33.4 pg (28.0-34.0) 04/14/23 02:10 MCHC 35.3 g/dL (30.0-36.0) 04/14/23 02:10 RDW 11.9 % (12.1-15.1) L 04/14/23 02:10 Plt Count 59 10^3/cmm (130-400) L 04/14/23 02:10 MPV 10.7 fL (7.4-10.4) H 04/14/23 02:10 Gran % Cancelled 04/14/23 00:58 Neut % (Auto) 83.4 % 04/14/23 02:10 Lymph % (Auto) 7.8 % 04/14/23 02:10 [place] % (Auto) 8.2 % 04/14/23 02:10 Eos % (Auto) 0.0 % 04/14/23 02:10 Baso % (Auto) 0.2 % 04/14/23 02:10 Neut # (Auto) 4.05 10^3/uL (1.8-7.7) 04/14/23 02:10 Lymph # (Auto) 0.4 10^3/uL (0.8-4.8) L 04/14/23 02:10 [place] # (Auto) 0.4 10^3/uL (0.2-0.9) 04/14/23 02:10 Eos # (Auto) 0.0 10^3/uL (0.0-0.8) 04/14/23 02:10 Baso # (Auto) 0.0 10^3/uL (0.0-0.1) 04/14/23 02:10 Absolute Gran (auto) Cancelled 04/14/23 00:58 Nucleated RBC % (auto) 0 % 04/14/23 02:10 Nucleated RBCs # 0.0 /100WBC 04/14/23 02:10 Sodium 130 mmol/L (136-145) L 04/14/23 02:10 Potassium 3.1 mmol/L (3.5-5.1) L 04/14/23 02:10 Chloride 83 mmol/L (98-107) L 04/14/23 02:10 Carbon Dioxide 17 mmol/L (22-29) L 04/14/23 02:10 Anion Gap 33.1 (5-19) H 04/14/23 02:10 BUN 10 mg/dL (6-20) 04/14/23 02:10 Creatinine 0.7 mg/dL (0.7-1.2) 04/14/23 02:10 GFR Calculation 130.7 mL/min (90-130) H 04/14/23 02:10 Glucose 82 mg/dL (65-115) 04/14/23 02:10 Calculated Osmolality 268 mOsm/kg (285-295) L 04/14/23 02:10 Lactic Acid 1.6 mmol/L (0.5-2.2) 04/14/23 02:10 Calcium 8.7 mg/dL (8.5-10.5) 04/14/23 02:10 Phosphorus 3.3 mg/dL (2.5-4.5) 04/14/23 02:10 Magnesium 1.6 mg/dL (1.7-2.3) L 04/14/23 02:10 Total Bilirubin 3.3 mg/dL (0.15-1.2) H 04/14/23 02:10 AST 361 U/L (0-40) H 04/14/23 02:10 ALT 257 U/L (0-41) H 04/14/23 02:10 Alkaline Phosphatase 119 U/L (40-130) 04/14/23 02:10 Total Protein 7.1 g/dL (6.6-8.7) 04/14/23 02:10 Albumin 4.5 g/dL (3.5-5.2) 04/14/23 02:10 Globulin 2.6 g/dL (1.3-4.6) 04/14/23 02:10 Triglycerides 76 mg/dL (0-150) 04/14/23 02:10 Cholesterol 237 mg/dL (0-200) H 04/14/23 02:10 LDL Cholesterol, Calc 119 mg/dL (50-129) 04/14/23 02:10 HDL Cholesterol 103 mg/dL (60-100) H 04/14/23 02:10 LDL/HDL Ratio 1.16 RATIO (0.00-3.22) 04/14/23 02:10 Cholesterol/HDL Ratio 2.30 mg/dL (1.0-5.00) 04/14/23 02:10 Amylase 218 U/L (28-100) H 04/14/23 02:10 Lipase 293 U/L (13-60) H 04/14/23 02:10 Vitamin B12 > 2000 pg/mL (232-1245) H 04/14/23 02:10 Folate 6.6 ng/mL (4.5-32.2) 04/14/23 02:10 Procalcitonin 0.23 ng/mL (0-0.5) 04/14/23 02:10 TSH 0.68 uIU/mL (0.27-4.20) 04/14/23 02:10 Discharge Plan Discharge Patient Disposition: Admitted As Inpatient Admit Provider: Elizabeth Ramey Clinical Impression: Pancreatitis Condition: Stable Discharge Diet: Regular and GI Soft Discharge Activity: Resume usual activity Coding Level of Care Code ED Clerical Warehouse Worker for Chg Renee
[2023-04-14] MEDS: sodium chloride 0.9% 1,000 ML 999 ML IV ×2 (00:50→02:48)
[2023-04-14] MEDS: morphine 4 mg/mL SDV 1 mL IVP (00:53)
[2023-04-14] MEDS: metoclopramide 5 mg/mL SDV 2 mL 10 MG IVP ×2 (00:54→23:23)
[2023-04-14] MEDS: haloperidol inj 5 mg/mL INJ 1 mL 2 MG IVP (01:12)
[2023-04-14] MEDS: HYDROmorphone 1 mg/mL INJ 1 mL IVP ×5 (02:07→21:18)
--- NOTE | 2023-04-14 02:34 | CTR_ITS ---
PROCEDURE INFORMATION: Exam: CT Abdomen And Pelvis With Contrast Exam date and time: 04/14/2023 2:43 AM Age: 32 years old Clinical indication: Abdominal pain; Epigastric; Additional info: Epigastric pain TECHNIQUE: Imaging protocol: Computed tomography of the abdomen and pelvis with contrast. Sagittal and coronal reformatted images were created and reviewed. Radiation optimization: All CT scans at this facility use at least one of these dose optimization techniques: automated exposure control; mA and/or kV adjustment per patient size (includes targeted exams where dose is matched to clinical indication); or iterative reconstruction. Contrast material: OMNI 350; Contrast volume: 100 ml; Contrast route: INTRAVENOUS (IV); REPORTING DATA: Count of CT and Cardiac NM exams in prior 12 months: This patient has received 12 known CTs and 0 known cardiac nuclear medicine studies in the 12 months prior to the current study. COMPARISON: MR MRCP [id number] 03/23/2023 11:39 AM RADIATION DOSE METRICS: Total DLP (mGy-cm): 780.75 FINDINGS: Liver: Diffuse, markedly decreased attenuation in the liver. Findings are stable and consistent with severe fatty infiltration. Stable severe enlargement of the liver measuring 27.2 cm in length (series 6, image 27). Stable 2.1 x 2.0 cm focus in the inferior right hepatic lobe with peripheral puddling enhancement, consistent with a hemangioma (series 4, image 48). Gallbladder and bile ducts: The gallbladder is unremarkable. No biliary ductal dilatation. Pancreas: Enlargement of the pancreas. Mild peripancreatic inflammatory change and small amount of free fluid, consistent with mild acute pancreatitis. No pancreatic ductal dilatation. No pancreatic atrophy. No pancreatic necrosis. Spleen: The spleen is unremarkable. Adrenal glands: The right and left adrenal glands are unremarkable. Kidneys and ureters: The right and left kidneys are unremarkable. The right and left ureters are unremarkable. Stomach and bowel: Thickening of the rugal folds of the stomach. Findings raise suspicion for gastritis. No acute abnormality in the small bowel. No acute abnormality in the colon. Appendix: Few small appendicoliths in the lumen of the appendix. No evidence for appendicitis. Intraperitoneal space: No free intraperitoneal air. No ascites. No loculated fluid collections to suggest an abscess. Vasculature: No evidence for aortic aneurysm or aortic dissection. Hepatic veins, portal veins, splenic vein, and SMV are patent. Lymph nodes: No lymphadenopathy. Urinary bladder: Unremarkable as visualized. Reproductive: Unremarkable as visualized. Bones/joints: Mild degenerative changes in the visualized spine. Soft tissues: No acute abnormality in the extra-abdominal soft tissues. CT/CT abdomen pelvis w con* [id number] IMPRESSION: 1. Findings consistent with mild acute pancreatitis. 2. Findings raising suspicion for gastritis. Recommend clinical correlation. Further evaluation with upper endoscopy recommended as clinically indicated. 3. Stable marked hepatomegaly and stable marked fatty infiltration of the liver.
[2023-04-14 02:39] LABS: Basophils % 0.2 %; Hematocrit 38.8 % (42.0-52.0); Hemoglobin 13.7 g/dL (11.7-16.6); Lymphocytes # 0.4 10^3/uL (0.8-4.8); Lymphocytes % 7.8 %; Mean Corpuscular HGB Conc 35.3 g/dL (30.0-36.0); Mean Corpuscular Hemoglobin 33.4 pg (28.0-34.0); Mean Corpuscular Volume 94.6 fl (80-94); Mean Platelet Volume 10.7 fL (7.4-10.4); Monocytes # 0.4 10^3/uL (0.2-0.9); Monocytes % 8.2 %; Neutrophils # 4.05 10^3/uL (1.8-7.7); Neutrophils % 83.4 %; Nucleated Red Blood Cells % 0 %; Platelet Count 59 10^3/cmm (130-400); Red Cell Distribution Width 11.9 % (12.1-15.1); White Blood Count 4.9 10^3/uL (4.0-10.0)
[2023-04-14] MEDS: iohexol 350 mg/mL 500 mL Btl (per mL) IV (02:46)
[2023-04-14 02:55] LABS: Alanine Aminotransferase 257 U/L (0-41); Albumin Level 4.5 g/dL (3.5-5.2); Alkaline Phosphatase 119 U/L (40-130); Anion Gap 33.1 (5-19); Aspartate Amino Transferase 361 U/L (0-40); Blood Urea Nitrogen 10 mg/dL (6-20); Calcium 8.7 mg/dL (8.5-10.5); Carbon Dioxide 17 mmol/L (22-29); Chloride 83 mmol/L (98-107); Globulin 2.6 g/dL (1.3-4.6); Glomerular Filtration Rate 130.7 mL/min (90-130); Glucose 82 mg/dL (65-115); Lipase 293 U/L (13-60); Magnesium 1.6 mg/dL (1.7-2.3); Osmolality Calculated 268 mOsm/kg (285-295); Potassium 3.1 mmol/L (3.5-5.1); Sodium 130 mmol/L (136-145); Total Bilirubin 3.3 mg/dL (0.15-1.2); Total Protein 7.1 g/dL (6.6-8.7)
[2023-04-14 02:57] LABS: Lactic Sepsis W/Reflex 1.6 mmol/L (0.5-2.2)
--- NOTE | 2023-04-14 03:54 | P.HP_ITS ---
Providers/Chief Complaint Admitting Physician: Elizabeth Ramey MD Primary Care Provider: Antonio Alvarado MD Chief Complaint: ABD PAIN History of Present Illness Buddy Cowan is a 32 year old male with past medical history of chronic pancreatitis, PTSD, alcohol abuse, anxiety, depression, GERD, hyperlipidemia, hypertension presented to the hospital today for complaint of?nausea, vomitting. Abdominal pain started about 4 days ago. He says he has been trying to drink alcohol to put himself to sleep but the pain is unbearable. He is unable to keep anything down. He has had frequent admission for recurrant pancreatitis with most recent dc from hospital march 25, 2023. Denies any other symptoms at this time. He states he has not taken his medications for the last 2 days Medications/Allergies Home Medications Medication Instructions Recorded Confirmed Last Taken Type lisinopril 40 mg tablet 40 mg PO QAM 01/30/21 03/23/23 01/30/21 History digestive enzymes 1 tab PO .UP TO TWICE A DAY 01/18/22 03/23/23 Unknown History resveratrol 250 mg capsule 250 - 500 mg PO DAILY PRN 01/18/22 03/23/23 Unknown History Inflammation Nu-Salt See Rx Instructions .Route .COMPLEX 11/30/22 03/23/23 Unknown History multivitamin 15 ml PO DAILY 11/30/22 03/23/23 Unknown History magnesium hydroxide 400 mg/5 mL 30 ml PO BID PRN Constipation 12/22/22 03/23/23 Unknown History oral suspension (Milk of Magnesia) trazodone 50 mg tablet 25 mg PO BEDTIME PRN Sleep #45 tabs 02/27/23 03/23/23 Unknown Rx Thc Gummies See Rx Instructions .Route .COMPLEX 03/23/23 03/23/23 Unknown History hydrocodone 5 mg-acetaminophen 325 1 tab PO Q8H PRN pain #14 tabs 03/25/23 Unknown Rx mg tablet metoclopramide HCl 10 mg tablet 10 mg PO Q6H PRN nausea and 03/25/23 Unknown Rx (Reglan) vomiting #90 tabs metoprolol succinate 50 mg 50 mg PO DAILY #30 tabs 03/25/23 Unknown Rx tablet,extended release 24 hr omeprazole 40 mg capsule,delayed 40 mg PO QAM #90 caps 03/25/23 Unknown Rx release clonidine HCl 0.1 mg tablet See Rx Instructions .Route 04/04/23 Unknown Rx .COMPLEX #60 tabs mirtazapine 15 mg tablet 15 mg PO .qhs #14 tabs 04/07/23 Unknown Rx Allergies Allergy/AdvReac Type Severity Reaction Status Date / Time aspirin Allergy Unknown ADR-Gastrointestinal Verified 03/23/23 08:49 Upset NSAIDS (Non-Steroidal Allergy Unknown Unknown Verified 03/23/23 08:49 Anti-Inflamma acetaminophen [From Tylenol] Allergy ADR-Gastrointestinal Verified 03/23/23 08:49 Upset zolpidem [From Ambien] Allergy ADR-Nightma Verified 03/23/23 08:49 re buspirone AdvReac Intermediate ADR-Anxiety Verified 03/23/23 08:49 PFSH Acute PFSH: Medical History Acute on chronic pancreatitis Acute posttraumatic stress disorder Alcohol abuse Anxiety and depression Folliculitis GERD (gastroesophageal reflux disease) Gynecomastia, male Hyperlipidemia Hypertension Marital/partner relational problem Panic attack Transaminitis Surgical History No pertinent past surgical history Family History Father Hypertension Social History Smoking and tobacco status: never smoked Alcohol intake: current Alcohol intake frequency: 0-2 Drinks per Day Substance/Drug Use: never Marital status: Number of children: 5 Current occupational status: employed Current gender identity: Male Vitals/I&O/Wt Last Vital Signs Temp 97.8 F 04/14/23 00:14 Pulse 101 H 04/14/23 03:00 Resp 16 04/14/23 03:00 BP 170/103 04/14/23 03:00 Pulse Ox 100 04/14/23 03:00 O2 Del Method Room Air 04/14/23 03:00 04/13/23 04/13/23 04/14/23 14:59 22:59 06:59 Intake Total 1000 / 1000 Balance 1000 / 1000 Weight last 48 hrs Weight 90.718 kg Physical Exam Narrative: General: Alert oriented x3 HEENT: Normocephalic, atraumatic, EOMI, breathing room air. Cardio: Sinus tachycardia, normal S1-S2 Respiratory: Good bilateral air entry, no wheezes no rhonchi appreciated GI: Abdomen soft, Some generalized tenderness present in all 4 quadrants some voluntary guarding present as well. Bowel sounds slightly hyperactive. Extremities: Pulses 2+, no edema, no cyanosis Data 04/14/23 02:10 04/14/23 02:10 A&P Assessment and plan (1) Thrombocytopenia: (2) High anion gap metabolic acidosis: (3) Hypokalemia: (4) Hyponatremia: (5) Pancreatitis: (6) Anxiety and depression: (7) GERD (gastroesophageal reflux disease): (8) Hyperlipidemia: (9) Hypertension: (10) Acute on chronic pancreatitis: (11) Alcohol abuse: Plan #Acute on chronic pancreatitis #History of alcohol abuse disorder #Hypertension #PTSD, anxiety depression #Thrombocytopenia secondary to alcohol use #Hypokalemia #Hyponatremia #anion gap metabolic acidosis possibly due to starvation ketosis and dehydration and vomiting ? N.p.o. ? Placed on LR 150 cc/h ? morphine 2 mg IV every 4 hours as needed ? Zofran and Reglan alternating for nausea ? Placed on thiamine, folic acid ? Check magnesium level in a.m. ? Check CBC CMP in a.m. ? Monitor blood pressure.? I will hold off on clonidine for now.? He takes it as needed at bedtime ? We will order hydralazine 10 IV as needed for systolic BP greater than 180. ? Hold lisinopril as well. ? Continue metoprolol 100 daily ? Protonix 40 twice daily IV ? CT abdomen pelvis 1. ? Findings consistent with mild acute pancreatitis. 2. ? Findings raising suspicion for gastritis. Recommend clinical correlation. Further evaluation with upper endoscopy recommended as clinically indicated. 3. ? Stable marked hepatomegaly and stable marked fatty infiltration of the liver. ? Consider repeat imaging if symptoms worsen however I do expect him to improve in next 48 hours. ? Repeat electrolytes and replete as needed Full code SCDs.? No pharmacological DVT prophylaxis as patient is thrombocytopenic. Attestations Medical Necessity Statement*: > 2 midnight stay for management of acute pancreatitis Coding Level of Care Code 91188 Moderate MDM includes number and complexity of problems actively addressed during encounter, amount and/or complexity of data reviewed/ordered and described risk of complication, morbidity or mortality of management as docum ented Diagnoses Thrombocytopenia D69.6 High anion gap metabolic acidosis E87.29 Hypokalemia E87.6 Hyponatremia E87.1 Pancreatitis K85.90 Anxiety and depression F41.9; F32.A GERD (gastroesophageal reflux disease) K21.9 Hyperlipidemia E78.5 Hypertension I10 Acute on chronic pancreatitis K85.90; K86.1 Alcohol abuse F10.10
[2023-04-14] MEDS: lactated ringers 1,000 ML 150 ML IV ×3 (04:17→21:23)
[2023-04-14] MEDS: pantoprazole 40 mg SDV IVP (04:17)
[2023-04-14] MEDS: magnesium sulfate premix 2 GM/50 ML PIGGYBACK IV (04:18)
[2023-04-14 04:27] LABS: Procalcitonin 0.23 ng/mL (0-0.5); Thyroid Stimulating Hormone 0.68 uIU/mL (0.27-4.20)
[2023-04-14 04:38] LABS: Cholesterol 237 mg/dL (0-200); HDL Cholesterol 103 mg/dL (60-100); LDL Cholesterol Calculated 119 mg/dL (50-129); LDL HDL Ratio 1.16 RATIO (0.00-3.22); Triglycerides 76 mg/dL (0-150)
--- NOTE | 2023-04-14 05:20 | PC.NURSE ---
Patients bp elevated at 157/110. Bp has been elevating over the last few hrs and pain is controlled. Pulled prn Hydralazine from pyxis to give patient and in the 2 minutes I was out of the room he decided to removed home meds from bag. Pt admits to taking 1 tab of lisinopril 40mg and chewing it. When asked why, pt states, I thought it would take hours for you to come back .
[2023-04-14] MEDS: hyDRALAzine 20 mg/mL INJ 1 mL 10 MG IVP (06:17)
[2023-04-14] MEDS: sodium chloride 0.9% 1,000 ML 125 ML IV (06:57)
[2023-04-14] MEDS: ondansetron 2 mg/ML SDV 2 mL 4 MG IVP ×2 (06:58→21:18)
--- NOTE | 2023-04-14 08:11 | PC.PHAR ---
PT STATES HIS TAKES CARE OF HIS MEDICATIONS-PTS RAHEEL [phone] VERIFIED PTS MEDICATIONS-PTS STATES THE PT TAKES METOPROLOL TARTRATE 100MG BID STATES THE DATE ON THE RX BOTTLE IS 08/16/22-ON 03/25/23 A METOPROLOL SUCCINATE ER 50MG DAILY WAS WRITTEN STATES PT TAKING TARTRATE 100MG BID-PTS STATES THE PT IS STILL TAKING AND HAS A BUILD UP OF LISINOPRIL 40MG DAILY EXT SHOWS LAST FILLED 01/16/23 30D/S-NOTES ARE MADE IN THE PHARMACY COMMENTS
[2023-04-14] MEDS: folic acid 1 mg Tablet PO (09:44)
[2023-04-14] MEDS: lidocaine 1% 5 ML in potassium chloride premix 100 ML 26.25 ML IV (09:51)
[2023-04-14 09:57] LABS: Amylase 218 U/L (28-100); Phosphorus 3.3 mg/dL (2.5-4.5)
[2023-04-14 10:13] LABS: Folate Level 6.6 ng/mL (4.5-32.2)
[2023-04-14 10:22] LABS: INR 1.02 (0.8-1.2)
[2023-04-14 10:43] LABS: Vitamin B12 > 2000 pg/mL (232-1245)
--- NOTE | 2023-04-14 10:58 | PC.NURSE ---
PATIENT ALARMING AT NURSES STATION. PATIENT HR 143. NURSE ENTERED PATIENT ROOM. PATIENT VOMITTING BILE. PATIENT STATES THAT HE IS HAVING NIGHTMARES OF REALLY TALL BUILDINGS AND THE WORLD ENDING. PATIENT STATES THAT HE DOES HAVE SOME ANXIETY. PATENT AIRWAY, UNLABORED RESPIRATIONS, AND APPROPRIATE COLOR.
--- NOTE | 2023-04-14 11:01 | ECG_ITS ---
[facility] Test Date: 2023-04-14 Pat Name: Buddy Cowan Department: Room: ED Gender: Male Section Leader: : 1990 Requested By: Troy Hopson Order Number: [id number] Thomas MD: Jorje Eller M.D. Measurements Intervals Kamas Rate: 105 P: 61 MN: 166 QRS: 41 QRSD: 80 T: 48 QT: 303 QTc: 401 Interpretive Statements SINUS TACHYCARDIA Compared to ECG 03/05/2023 12:26:45 T-wave abnormality no longer present Electronically Signed On 04-14-2023 16:14:51 CDT by Jorje Eller M.D. [email or web address] [id number] f
[2023-04-14] MEDS: LORazepam 2 mg/mL INJ 1 mL IVP ×2 (11:11→23:23)
[2023-04-14 13:10] LABS: Add Urine Microscopic? NO; Charge for UA Resulting for Rev
[2023-04-14 13:12] LABS: Bilirubin Urine 1+ (Negative); Blood Urine Neg (Negative); Glucose Urine UA Norm (Normal); Ketones Urine 3+ (Negative); Leukocyte Esterase Urine Negative (Negative); Nitrate Urine Negative (Negative); Protein Urine Neg (Negative); Urine Appearance Clear (CLEAR); Urine Color Amber (Yellow); Urobilinogen Urine 4 mg/dL (Negative); pH Urine 5 (5-7)
[2023-04-14 13:20] LABS: Amphetamines Screen Urine Negative (Negative); Barbiturates Screen Urine Negative (Negative); Benzodiazepines Screen Urine Negative (Negative); Cocaine Screen Urine Negative (Negative); Opiate Screen Urine Positive (Negative); PCP Screen Urine Negative (Negative); THC Screen Urine Negative (Negative)
--- NOTE | 2023-04-14 13:39 | PC.NUTR ---
Pt currently NPO and not meeting estimated kcal/protein needs. Pharmacy called for PPN recommendations. Suggest PPN (4.25% AA, 5% dextrose) with MV 10 mls/day and standard electrolytes per following regimen: 23 mls/hr (25% final rate) for 8 hours 43 mls/hr (50% finsl rate) for 8 hours 63 mls/hr (75% final rate) for 8 hours 83 mls/hr (goal infusion rate). Details in RD assessment.
--- NOTE | 2023-04-14 13:48 | XR_ITS ---
WS: [id number] PORTABLE CHEST HISTORY: Post PICC insertion COMPARISON: 03/05/2023 Right-sided PICC line has been placed with tip at the atriocaval junction. Lungs are clear and well expanded. No pleural effusion or pneumothorax. Cardiac size: Normal. Mediastinum/Aorta: Normal mediastinum. No osseous abnormality seen. XR/XR chest 1V portable [id number] IMPRESSION: Satisfactory placement RIGHT sided PICC line.
--- NOTE | 2023-04-14 14:00 | PC.NURSE ---
Double lumen PICC placed to right basilic vein without difficulty. PICC placement needed for TPN. Informed consent obtained from patient prior to procedure. Right basilic vein assessed, noted to be 5 mm, appeared straight, and best choice for placement. Mid-arm circumference measured 10 cm from right AC 30 cm. Trimmed cath length 47 cm with 1.5 cm external length noted. CXR confirms tip in SVC, cavoatrial junction, in good position for use per radiologist. Catheter secured with stat lock. Insertion site covered with gauze and TSM. Dressing due to be changed tomorrow, 04/15/23. Report given to bedside ER nurseSophy.
--- NOTE | 2023-04-14 15:28 | PM.PN ---
Subjective Subjective: Patient was examined early this morning in the emergency room, he is awaiting a bed upstairs, complaining of severe abdominal pain, feeling nauseous, he has not had a bowel movement, he does report an alcohol drink, in the last 24 hours, to help with his insomnia, no fevers, no chills, denies any drug use, has trouble urinating due to severe pain Vitals/I&O/Wt Last Vital Signs Temp 97.8 F 04/14/23 00:14 Pulse 130 H 04/14/23 14:00 Resp 20 H 04/14/23 14:00 BP 123/75 04/14/23 13:00 Pulse Ox 99 04/14/23 14:00 O2 Del Method Room Air 04/14/23 07:25 04/14/23 04/14/23 04/14/23 06:59 14:59 22:59 Intake Total 2049 Balance 2049 Weight last 48 hrs Weight 90.718 kg Physical Exam Const: COMMON NORMALS: no acute distress and patient oriented x3 Resp: COMMON NORMALS: normal respiratory effort, No retractions, No use of accessory muscles and clear to auscultation bilaterally AUSCULTATION: clear to auscultation bilaterally Cardio: COMMON NORMALS: regular rhythm, S1 normal heart sound present and S2 normal heart sound present RATE: tachycardic RHYTHM: regular rhythm HEART SOUNDS: S1 normal heart sound present and S2 normal heart sound present GI: OTHER: Abdomen soft, distended, decreased bowel sounds in all 4 quadrants, no guarding, no rebound, no rigidity, but does have diffuse tenderness in all 4 quadrants, exquisite epigastric tenderness Extremity: COMMON NORMALS: no pedal edema Neuro: COMMON NORMALS: patient oriented x3 Psych: COMMON NORMALS: mental status grossly normal Urinary Catheter Management: Orozco: Cath Placed During This Visit: yes Urinary Catheter Date of Insertion: 04/14/23 Urinary Catheter Time of Insertion: 13:09 Data 04/14/23 02:10 04/14/23 02:10 Micro: Microbiology 04/14/23 07:45 Blood Culture - Preliminary Blood SPECIMEN COLLECTED 04/14/23 07:35 Blood Culture - Preliminary Blood SPECIMEN COLLECTED A&P Assessment and plan (1) Thrombocytopenia: (2) High anion gap metabolic acidosis: (3) Hypokalemia: (4) Hyponatremia: (5) Pancreatitis: (6) Anxiety and depression: (7) GERD (gastroesophageal reflux disease): (8) Hyperlipidemia: (9) Hypertension: (10) Acute on chronic pancreatitis: (11) Alcohol abuse: (12) Hypomagnesemia: (13) Transaminitis: (14) Hyperbilirubinemia: Plan #Acute on chronic pancreatitis #History of alcohol abuse disorder #Hypertension #PTSD, anxiety depression #Thrombocytopenia secondary to alcohol use #Hypokalemia #Hyponatremia #anion gap metabolic acidosis possibly due to starvation ketosis and dehydration and vomiting ? N.p.o. ? Placed on LR 150 cc/h ? Increase to Dilaudid 1 mg IV push every 4 hours as needed -We will start on peripheral nutrition, place PICC line, consult dietary ? Zofran and Reglan alternating for nausea ? Placed on thiamine, folic acid ? Monitor electrolytes ? Check CBC CMP in a.m. ? Monitor blood pressure.? I will hold off on clonidine for now.? He takes it as needed at bedtime ? We will order hydralazine 10 IV as needed for systolic BP greater than 180. ? Hold lisinopril as well. ? Continue metoprolol 100 daily ? Protonix 40 twice daily IV -Serial abdominal exams ? CT abdomen pelvis 1. ? Findings consistent with mild acute pancreatitis. 2. ? Findings raising suspicion for gastritis. Recommend clinical correlation. Further evaluation with upper endoscopy recommended as clinically indicated. 3. ? Stable marked hepatomegaly and stable marked fatty infiltration of the liver. ? Consider repeat imaging if symptoms worsen however I do expect him to improve in next 48 hours. ? Repeat electrolytes and replete as needed -Given his alcoholism, watch for alcohol withdrawal, CIWA protocol, thiamine, folic acid Full code SCDs.? No pharmacological DVT prophylaxis as patient is thrombocytopenic. Plan for today, place PICC line, start peripheral nutrition, continue fluid therapy, Inc. wrist pain medications, serial abdominal exams, telemetry monitoring Attestations Medical Necessity Statement*: Patient requires hospitalization, inpatient, greater than 2 midnights, for acute on chronic pancreatitis, with hypokalemia, hyponatremia, metabolic acidosis, thrombocytopenia Diagnoses Thrombocytopenia D69.6 High anion gap metabolic acidosis E87.29 Hypokalemia E87.6 Hyponatremia E87.1 Pancreatitis K85.90 Anxiety and depression F41.9; F32.A GERD (gastroesophageal reflux disease) K21.9 Hyperlipidemia E78.5 Hypertension I10 Acute on chronic pancreatitis K85.90; K86.1 Alcohol abuse F10.10 Hypomagnesemia E83.42 Transaminitis R74.01 Hyperbilirubinemia E80.6
[2023-04-14] MEDS: LORazepam 2 mg Tablet PO (15:51)
--- NOTE | 2023-04-14 19:34 | PC.NURSE ---
Patient arrived to floor via wheelchair from ER. C/o pain to abdomen and needing pain medication. I need my pain medicine now! Patients VSS with some ST intermittently. Room clean and clutter free with call light in reach. Picc line in place and patent. Orozco in place and patent.
--- NOTE | 2023-04-14 20:58 | PC.NURSE ---
Addendum entered by Maritza Chester RN 04/14/23 21:01: In his external med history, it says he takes it BID, but he says he only takes it once a day. Dr. Ramey notified. Original Note: Patient had runs of V-tach on monitor. Patient is also having multiple PVCs on tele. Dr. Ramey notified. BMP and mag ordered. Patient states he takes 100 mg of Metoprolol daily at home. One time dose ordered for now per Dr. Ramey.
[2023-04-14] MEDS: temazepam 15 mg Capsule PO (21:18)
[2023-04-14] MEDS: metoprolol tartrate 50 mg Tablet 100 MG PO (21:18)
[2023-04-14 21:39] LABS: Blood Urea Nitrogen 6 mg/dL (6-20); Calcium 7.6 mg/dL (8.5-10.5); Carbon Dioxide 14 mmol/L (22-29); Chloride 94 mmol/L (98-107); Glomerular Filtration Rate 249.3 mL/min (90-130); Glucose 86 mg/dL (65-115); Magnesium 1.9 mg/dL (1.7-2.3); Osmolality Calculated 267 mOsm/kg (285-295); Sodium 130 mmol/L (136-145)
[2023-04-14 21:40] LABS: Anion Gap 26.8 (5-19); Potassium 4.8 mmol/L (3.5-5.1)
[2023-04-15] VITALS (18 sets, daily range): BP systolic 119–144; BP diastolic 74–95; PULSE 64–90; RESP 12–18; TEMP 36.7–37.3; O2SAT 92–99
[2023-04-15] MEDS: HYDROmorphone 1 mg/mL INJ 1 mL IVP ×6 (01:37→22:03)
[2023-04-15] MEDS: ondansetron 2 mg/ML SDV 2 mL 4 MG IVP ×6 (01:37→22:02)
[2023-04-15 04:57] LABS: Basophils % 0.2 %; Eosinophils % 0.5 %; Hematocrit 34.5 % (42.0-52.0); Hemoglobin 11.9 g/dL (11.7-16.6); Lymphocytes % 22.7 %; Mean Corpuscular HGB Conc 34.5 g/dL (30.0-36.0); Mean Corpuscular Hemoglobin 33.2 pg (28.0-34.0); Mean Corpuscular Volume 96.4 fl (80-94); Monocytes # 0.4 10^3/uL (0.2-0.9); Monocytes % 9.5 %; Neutrophils # 2.88 10^3/uL (1.8-7.7); Neutrophils % 66.9 %; Nucleated Red Blood Cells % 0 %; Platelet Count 38 10^3/cmm (130-400); Red Blood Count 3.58 10^6/uL (4.1-5.3); White Blood Count 4.3 10^3/uL (4.0-10.0)
[2023-04-15 05:13] LABS: Lactic Sepsis W/Reflex 0.7 mmol/L (0.5-2.2)
[2023-04-15 05:23] LABS: Alanine Aminotransferase 169 U/L (0-41); Albumin Level 3.8 g/dL (3.5-5.2); Alkaline Phosphatase 98 U/L (40-130); Aspartate Amino Transferase 184 U/L (0-40); Blood Urea Nitrogen 5 mg/dL (6-20); Calcium 8.3 mg/dL (8.5-10.5); Carbon Dioxide 20 mmol/L (22-29); Chloride 95 mmol/L (98-107); Globulin 2.2 g/dL (1.3-4.6); Glomerular Filtration Rate 156.1 mL/min (90-130); Glucose 99 mg/dL (65-115); Magnesium 1.9 mg/dL (1.7-2.3); Osmolality Calculated 273 mOsm/kg (285-295); Sodium 133 mmol/L (136-145); Total Bilirubin 3.5 mg/dL (0.15-1.2)
[2023-04-15 05:29] LABS: Phosphorus 1.3 mg/dL (2.5-4.5)
[2023-04-15] MEDS: pantoprazole 40 mg SDV IVP (05:32)
[2023-04-15 05:35] LABS: Lipase 287 U/L (13-60)
[2023-04-15] MEDS: lactated ringers 1,000 ML 150 ML IV ×2 (05:37→17:45)
[2023-04-15] MEDS: potassium phosphate (mEq K) 40 MEQ in sodium chloride 0.9% (100 ml) 100 ML 27.25 MEQ IV (09:34)
[2023-04-15] MEDS: folic acid 1 mg Tablet PO (09:35)
[2023-04-15] MEDS: cloNIDine 0.1 mg Tablet PO ×2 (09:35→17:43)
[2023-04-15 09:46] LABS: LAB Peripheral Smear Sent for Review
[2023-04-15 09:56] LABS: HIV 1 & 2 Antibody Non-Reactive (Non-Reactiv); HIV 1 & 2 Antigen Non-Reactive (Non-Reactiv)
[2023-04-15 09:59] LABS: Hepatitis A Antibody IgM Non-Reactive (Nonreactive); Hepatitis B Core IgM Non-Reactive (Nonreactive); Hepatitis B Surface Antigen Non-Reactive (Nonreactive); Hepatitis C Virus Antibody Non-Reactive (Nonreactive)
--- NOTE | 2023-04-15 13:14 | P.PN_ITS ---
Subjective Subjective: Patient was seen this morning, he continues to have abdominal pain but it is improved, he had a small bowel movement yesterday, is passing gas from below, no nausea, no vomiting, no fevers Vitals/I&O/Wt Last Vital Signs Temp 98.2 F 04/15/23 08:00 Pulse 84 04/15/23 08:00 Resp 18 04/15/23 09:36 BP 144/91 04/15/23 09:35 Pulse Ox 97 04/15/23 08:00 O2 Del Method Room Air 04/15/23 04:00 04/14/23 04/15/23 04/15/23 22:59 06:59 14:59 Intake Total 947.85 / 3052.85 1278.067 / 4330.917 Output Total 500 / 500 1000 / 1500 Balance 447.85 / 2552.85 278.067 / 2830.917 Weight last 48 hrs Weight 90.718 kg Physical Exam Const: COMMON NORMALS: no acute distress and patient oriented x3 Resp: COMMON NORMALS: normal respiratory effort, No retractions, No use of accessory muscles and clear to auscultation bilaterally AUSCULTATION: clear to auscultation bilaterally Cardio: COMMON NORMALS: regular rate, regular rhythm, S1 normal heart sound present and S2 normal heart sound present RATE: regular rate RHYTHM: regular rhythm HEART SOUNDS: S1 normal heart sound present and S2 normal heart sound present GI: OTHER: Abdomen soft, slightly distended, diffuse mild tenderness to palpation, no guarding, no rebound, no rigidity, decreased bowel sounds Extremity: COMMON NORMALS: no pedal edema Neuro: COMMON NORMALS: patient oriented x3 Psych: COMMON NORMALS: mental status grossly normal Urinary Catheter Management: Orozco: Cath Placed During This Visit: yes Reason for Continuing Indwelling Catheter: Acute Urinary Retention or Obstru ction Urinary Catheter Date of Insertion: 04/14/23 Urinary Catheter Time of Insertion: 13:09 Data 04/15/23 04:25 04/15/23 04:25 Micro: Microbiology 04/14/23 07:45 Blood Culture - Preliminary Blood NEGATIVE TO DATE 04/14/23 07:35 Blood Culture - Preliminary Blood NEGATIVE TO DATE A&P Assessment and plan (1) Thrombocytopenia: (2) High anion gap metabolic acidosis: (3) Hypokalemia: (4) Hyponatremia: (5) Pancreatitis: (6) Anxiety and depression: (7) GERD (gastroesophageal reflux disease): (8) Hyperlipidemia: (9) Hypertension: (10) Acute on chronic pancreatitis: (11) Alcohol abuse: (12) Hypomagnesemia: (13) Transaminitis: (14) Hyperbilirubinemia: Plan #Acute on chronic pancreatitis #History of alcohol abuse disorder #Hypertension #PTSD, anxiety depression #Thrombocytopenia secondary to alcohol use #Hypokalemia #Hyponatremia #anion gap metabolic acidosis possibly due to starvation ketosis and dehydration and vomiting ? N.p.o. ? Decrease LR to 50 cc an hour ? Increase to Dilaudid 1 mg IV push every 4 hours as needed -PICC line placed, on peripheral nutrition ? Zofran and Reglan alternating for nausea ? Placed on thiamine, folic acid ? Monitor electrolytes ? Check CBC CMP in a.m. ? Monitor blood pressure.? I will hold off on clonidine for now.? He takes it as needed at bedtime ? We will order hydralazine 10 IV as needed for systolic BP greater than 180. ? Hold lisinopril as well. ? Continue metoprolol 100 twice daily ? Protonix 40 milligrams IV twice daily -Serial abdominal exams ? CT abdomen pelvis 1. ? Findings consistent with mild acute pancreatitis. 2. ? Findings raising suspicion for gastritis. Recommend clinical correlation. Further evaluation with upper endoscopy recommended as clinically indicated. 3. ? Stable marked hepatomegaly and stable marked fatty infiltration of the liver. ? Consider repeat imaging if symptoms worsen however I do expect him to improve in next 48 hours. ? Repeat electrolytes and replete as needed -Given his alcoholism, watch for alcohol withdrawal, CIWA protocol, thiamine, folic acid -Replace electrolytes, potassium, phosphorus -Thrombocytopenia, HIV, hep C, peripheral smear, Full code SCDs.? No pharmacological DVT prophylaxis as patient is thrombocytopenic. Plan for today, up out of bed, continue TPN, replace electrolytes Attestations Medical Necessity Statement*: Patient requires hospitalization for acute pancreatitis and High MDM includes number and complexity of problems actively addressed during encounter, amount and/or complexity of data reviewed/ordered and described risk of complication, morbidity or mortality of management as documented Diagnoses Thrombocytopenia D69.6 High anion gap metabolic acidosis E87.29 Hypokalemia E87.6 Hyponatremia E87.1 Pancreatitis K85.90 Anxiety and depression F41.9; F32.A GERD (gastroesophageal reflux disease) K21.9 Hyperlipidemia E78.5 Hypertension I10 Acute on chronic pancreatitis K85.90; K86.1 Alcohol abuse F10.10 Hypomagnesemia E83.42 Transaminitis R74.01 Hyperbilirubinemia E80.6
[2023-04-15] MEDS: metoprolol tartrate 50 mg Tablet 100 MG PO (17:43)
[2023-04-15] MEDS: temazepam 15 mg Capsule PO (19:50)
--- NOTE | 2023-04-15 20:50 | PC.NURSE ---
Addendum entered by Maritza Chester RN 04/15/23 20:57: UA and urine culture ordered. Original Note: Patient has a chong. Patient states I feel like I have a UTI. Dr. Ramey notified.
--- NOTE | 2023-04-15 21:57 | PC.NURSE ---
IV Fluids running at 50 ml/hr, not 150 upon my arrival on shift. Also, during report, day shift nurse stated that the physician ordered for the fluids to be turned down form 150 to 50.
[2023-04-16] VITALS (13 sets, daily range): BP systolic 119–150; BP diastolic 78–98; PULSE 65–82; RESP 16–19; TEMP 36.3–37.1; O2SAT 92–99
[2023-04-16 01:30] LABS: Add Urine Microscopic? NO; Charge for UA Resulting for Rev
[2023-04-16 01:38] LABS: Urine Appearance Clear (CLEAR); Urine Color Yellow (Yellow); pH Urine 9 (5-7)
[2023-04-16 01:39] LABS: Bilirubin Urine Neg (Negative); Blood Urine Neg (Negative); Glucose Urine UA Norm (Normal); Ketones Urine 1+ (Negative); Leukocyte Esterase Urine Negative (Negative); Nitrate Urine Negative (Negative); Protein Urine Neg (Negative); Sulfosalicylic Acid Urine Negative (Negative); Urobilinogen Urine Norm (Negative)
[2023-04-16] MEDS: HYDROmorphone 1 mg/mL INJ 1 mL IVP ×5 (02:44→22:17)
[2023-04-16] MEDS: ondansetron 2 mg/ML SDV 2 mL 4 MG IVP ×5 (02:44→22:17)
--- NOTE | 2023-04-16 05:28 | PC.NURSE ---
Addendum entered by Maritza Chester RN 04/16/23 05:53: VSS. Original Note: Patient had run of V-tach on heart monitor. Dr. Ramey notified.
[2023-04-16 05:51] LABS: Basophils % 0.4 %; Eosinophils % 1.1 %; Hematocrit 32.9 % (42.0-52.0); Hemoglobin 11.1 g/dL (11.7-16.6); Lymphocytes # 0.7 10^3/uL (0.8-4.8); Lymphocytes % 24.8 %; Mean Corpuscular HGB Conc 33.7 g/dL (30.0-36.0); Mean Corpuscular Hemoglobin 32.9 pg (28.0-34.0); Mean Corpuscular Volume 97.6 fl (80-94); Mean Platelet Volume 12.2 fL (7.4-10.4); Monocytes # 0.3 10^3/uL (0.2-0.9); Neutrophils # 1.71 10^3/uL (1.8-7.7); Neutrophils % 63.3 %; Nucleated Red Blood Cells % 0 %; Platelet Count 33 10^3/cmm (130-400); Red Blood Count 3.37 10^6/uL (4.1-5.3); Red Cell Distribution Width 11.9 % (12.1-15.1); White Blood Count 2.7 10^3/uL (4.0-10.0)
[2023-04-16 06:14] LABS: Alanine Aminotransferase 156 U/L (0-41); Albumin Level 3.4 g/dL (3.5-5.2); Alkaline Phosphatase 90 U/L (40-130); Anion Gap 12.6 (5-19); Aspartate Amino Transferase 182 U/L (0-40); Blood Urea Nitrogen 7 mg/dL (6-20); Calcium 8.5 mg/dL (8.5-10.5); Carbon Dioxide 29 mmol/L (22-29); Chloride 92 mmol/L (98-107); Globulin 2.5 g/dL (1.3-4.6); Glomerular Filtration Rate 156.1 mL/min (90-130); Glucose 110 mg/dL (65-115); Magnesium 1.7 mg/dL (1.7-2.3); Osmolality Calculated 271 mOsm/kg (285-295); Phosphorus 2.5 mg/dL (2.5-4.5); Sodium 131 mmol/L (136-145); Total Bilirubin 2.7 mg/dL (0.15-1.2); Total Protein 5.9 g/dL (6.6-8.7)
[2023-04-16 06:16] LABS: Lipase 128 U/L (13-60)
[2023-04-16 06:19] LABS: Procalcitonin 0.24 ng/mL (0-0.5)
[2023-04-16 06:31] LABS: Potassium 2.6 mmol/L (3.5-5.1)
[2023-04-16] MEDS: lidocaine 1% 5 ML in potassium chloride premix 100 ML 26.25 ML IV ×2 (06:55→11:36)
[2023-04-16] MEDS: metoprolol tartrate 50 mg Tablet 100 MG PO ×2 (09:00→18:08)
[2023-04-16] MEDS: cloNIDine 0.1 mg Tablet PO ×2 (09:50→18:07)
[2023-04-16] MEDS: folic acid 1 mg Tablet PO (09:51)
--- NOTE | 2023-04-16 15:16 | P.PN_ITS ---
Subjective Subjective: - Patient was seen this morning he tells me he feels significantly better, he had a small bowel movement, passing gas, nausea vomiting is resolved, abdomen is significantly less tender, he feels a lot better no fevers, no chills he has been trying liquids throughout the night and tolerating well -I discussed with him continuing sips and chips until noon, if he tolerates that well we will transition to clear liquids -He does feel bothered by the Orozco catheter but continues to have significant urine output, discussed potentially removing in the evening, agreeable -Agreeable to wean peripheral nutrition, and fluid therapy Vitals/I&O/Wt Last Vital Signs Temp 98.2 F 04/16/23 11:09 Pulse 82 04/16/23 11:09 Resp 18 04/16/23 11:24 BP 131/88 04/16/23 11:09 Pulse Ox 99 04/16/23 11:09 O2 Del Method Room Air 04/16/23 11:09 04/16/23 04/16/23 04/16/23 06:59 14:59 22:59 Intake Total 1010 / 2913.1739 778.333 / 778.333 Output Total 2800 / 2800 1000 / 1000 Balance -1790 / 113.1739 -221.667 / -221.667 Physical Exam Const: COMMON NORMALS: no acute distress and patient oriented x3 Resp: COMMON NORMALS: normal respiratory effort, No retractions, No use of accessory muscles and clear to auscultation bilaterally AUSCULTATION: clear to auscultation bilaterally Cardio: COMMON NORMALS: regular rate, regular rhythm, S1 normal heart sound present and S2 normal heart sound present RATE: regular rate RHYTHM: regular rhythm HEART SOUNDS: S1 normal heart sound present and S2 normal heart sound present GI: COMMON NORMALS: Normal to inspection, nondistended, normoactive bowel sounds present and non-tender Extremity: COMMON NORMALS: no pedal edema Neuro: COMMON NORMALS: patient oriented x3 Psych: COMMON NORMALS: mental status grossly normal Urinary Catheter Management: Orozco: Cath Placed During This Visit: yes Reason for Continuing Indwelling Catheter: Acute Urinary Retention or Obstruction Urinary Catheter Date of Insertion: 04/14/23 Urinary Catheter Time of Insertion: 13:09 Data 04/16/23 05:05 04/16/23 05:05 A&P Assessment and plan (1) Thrombocytopenia: (2) High anion gap metabolic acidosis: (3) Hypokalemia: (4) Hyponatremia: (5) Pancreatitis: (6) Anxiety and depression: (7) GERD (gastroesophageal reflux disease): (8) Hyperlipidemia: (9) Hypertension: (10) Acute on chronic pancreatitis: (11) Alcohol abuse: (12) Hypomagnesemia: (13) Transaminitis: (14) Hyperbilirubinemia: Plan #Acute on chronic pancreatitis #History of alcohol abuse disorder #Hypertension #PTSD, anxiety depression #Thrombocytopenia secondary to alcohol use #Hypokalemia #Hyponatremia #anion gap metabolic acidosis possibly due to starvation ketosis and dehydration and vomiting ? Sips and chips until lunch, then transition to clears if anytime he has worsening abdominal pain will have to go back to n.p.o. ? Decrease LR to 50 cc an hour, decrease TPN in half and wean 20 cc every 8 hours ? Continue Dilaudid 1 mg IV push every 4 hours as needed -PICC line placed, on peripheral nutrition ? Zofran and Reglan alternating for nausea ? Placed on thiamine, folic acid ? Monitor electrolytes ? Check CBC CMP in a.m. ? Monitor blood pressure.? Continue clonidine he takes it as needed at bedtime ? We will order hydralazine 10 IV as needed for systolic BP greater than 180. ? Hold lisinopril as well. ? Continue metoprolol 100 twice daily ? Protonix 40 milligrams IV twice daily -Serial abdominal exams ? CT abdomen pelvis 1. ? Findings consistent with mild acute pancreatitis. 2. ? Findings raising suspicion for gastritis. Recommend clinical correlation. Further evaluation with upper endoscopy recommended as clinically indicated. 3. ? Stable marked hepatomegaly and stable marked fatty infiltration of the liver. ? Consider repeat imaging if symptoms worsen however I do expect him to improve in next 48 hours. ? Hypokalemia, replace IV -Given his alcoholism, watch for alcohol withdrawal, CIWA protocol, thiamine, folic acid -Replace electrolytes, potassium, phosphorus -Thrombocytopenia, Full code SCDs.? No pharmacological DVT prophylaxis as patient is thrombocytopenic. Plan for today, up out of bed, transition to clear liquids, wean fluids wean TPN, up out of bed, replace potassium Attestations Medical Necessity Statement*: Patient requires hospitalization for pancreatitis, hypokalemia, and High MDM includes number and complexity of problems actively addressed during encounter, amount and/or complexity of data reviewed/ordered an d described risk of complication, morbidity or mortality of management as documented Diagnoses Thrombocytopenia D69.6 High anion gap metabolic acidosis E87.29 Hypokalemia E87.6 Hyponatremia E87.1 Pancreatitis K85.90 Anxiety and depression F41.9; F32.A GERD (gastroesophageal reflux disease) K21.9 Hyperlipidemia E78.5 Hypertension I10 Acute on chronic pancreatitis K85.90; K86.1 Alcohol abuse F10.10 Hypomagnesemia E83.42 Transaminitis R74.01 Hyperbilirubinemia E80.6
[2023-04-16] MEDS: metoclopramide 5 mg/mL SDV 2 mL 10 MG IVP (17:56)
[2023-04-16] MEDS: LORazepam 2 mg/mL INJ 1 mL IVP (18:07)
--- NOTE | 2023-04-17 00:16 | PC.NURSE ---
refused midnight vitals, wants to sleep
[2023-04-17 04:00] VITALS: BP 142/98; PULSE 73; RESP 16; TEMP 36.3; O2SAT 98
[2023-04-17] MEDS: ondansetron 2 mg/ML SDV 2 mL 4 MG IVP (05:04)
[2023-04-17] MEDS: LORazepam 2 mg/mL INJ 1 mL IVP (05:04)
--- NOTE | 2023-04-17 05:15 | PC.NURSE ---
Talked with pt while giving IV zofran and ativan. He states he would like to try something for better pain management as he is tempted by alcohol at home because it's a cheap and available pain and anxiety reliever. He would also like to be switched to a soft food diet and would like to try toradol or PO dilaudid as the IV dilaudid does not work over a long period for him.
[2023-04-17 05:34] LABS: Basophils % 0.8 %; Eosinophils % 1.2 %; Hematocrit 36.7 % (42.0-52.0); Hemoglobin 12.6 g/dL (11.7-16.6); Lymphocytes # 1.2 10^3/uL (0.8-4.8); Lymphocytes % 45.8 %; Mean Corpuscular HGB Conc 34.3 g/dL (30.0-36.0); Mean Corpuscular Volume 98.9 fl (80-94); Mean Platelet Volume 12.1 fL (7.4-10.4); Monocytes # 0.3 10^3/uL (0.2-0.9); Monocytes % 10.8 %; Neutrophils # 1.07 10^3/uL (1.8-7.7); Nucleated Red Blood Cells % 0 %; Platelet Count 52 10^3/cmm (130-400); Red Blood Count 3.71 10^6/uL (4.1-5.3); White Blood Count 2.6 10^3/uL (4.0-10.0)
[2023-04-17 05:51] LABS: Alanine Aminotransferase 230 U/L (0-41); Albumin Level 3.7 g/dL (3.5-5.2); Alkaline Phosphatase 113 U/L (40-130); Anion Gap 14.3 (5-19); Aspartate Amino Transferase 282 U/L (0-40); Blood Urea Nitrogen 8 mg/dL (6-20); C Reactive Protein 45.2 mg/L (0.0-4.9); Calcium 8.7 mg/dL (8.5-10.5); Carbon Dioxide 27 mmol/L (22-29); Chloride 94 mmol/L (98-107); Globulin 2.7 g/dL (1.3-4.6); Glomerular Filtration Rate 192.7 mL/min (90-130); Glucose 86 mg/dL (65-115); Magnesium 1.9 mg/dL (1.7-2.3); Osmolality Calculated 272 mOsm/kg (285-295); Phosphorus 2.5 mg/dL (2.5-4.5); Potassium 3.3 mmol/L (3.5-5.1); Sodium 132 mmol/L (136-145); Total Bilirubin 2.2 mg/dL (0.15-1.2); Total Protein 6.4 g/dL (6.6-8.7)
[2023-04-17 05:54] LABS: Lipase 63 U/L (13-60)
[2023-04-17 05:57] LABS: Procalcitonin 0.23 ng/mL (0-0.5)
[2023-04-17 08:00] VITALS: BP 135/93; PULSE 85; RESP 18; TEMP 36.5; O2SAT 99
[2023-04-17 09:46] VITALS: BP 135/93
[2023-04-17] MEDS: metoprolol tartrate 50 mg Tablet 100 MG PO (09:46)
[2023-04-17] MEDS: cloNIDine 0.1 mg Tablet PO (09:46)
[2023-04-17] MEDS: folic acid 1 mg Tablet PO (09:46)
[2023-04-17] MEDS: potassium chloride ER 20 mEq Tablet 40 MEQ PO (09:48)
[2023-04-17] MEDS: fluoxetine 20 mg Capsule PO (09:49)
--- NOTE | 2023-04-17 11:45 | PM.DCS ---
Discharge Providers Date of Admission: 04/14/23 03:34 Date of Discharge: April 17, 2023 Attending Provider at Admission: Elizabeth Ramey MD Attending Provider at Discharge: Troy Hopson MD Primary Care Provider: Antonio Alvarado MD Diagnoses at Discharge Discharge Diagnosis (1) Thrombocytopenia: Status: Acute (2) High anion gap metabolic acidosis: Status: Acute (3) Hypokalemia: Status: Acute (4) Hyponatremia: Status: Acute (5) Pancreatitis: Status: Acute (6) Anxiety and depression: Status: Acute (7) GERD (gastroesophageal reflux disease): Status: Acute (8) Hyperlipidemia: Status: Acute (9) Hypertension: Status: Acute (10) Acute on chronic pancreatitis: Status: Acute (11) Alcohol abuse: Status: Acute (12) Hypomagnesemia: Status: Inactive (13) Transaminitis: Status: Inactive (14) Hyperbilirubinemia: Status: Acute Reason for Visit Reason for Visit: ABD PAIN Hospital Course Hospital Course Mela Cowan is a 32 year old male with past medical history of chronic pancreatitis, PTSD, alcohol abuse, anxiety, depression, GERD, hyperlipidemia, hypertension presented to the hospital today for complaint of?nausea, vomitting. Abdominal pain started about 4 days ago. He says he has been trying to drink alcohol to put himself to sleep but the pain is unbearable. He is unable to keep anything down. He has had frequent admission for recurrant pancreatitis with most recent dc from hospital march 25, 2023. Denies any other symptoms at this time.? He states he has not taken his medications for the last 2 days Patient presents to [facility] for acute on chronic pancreatitis, alcohol abuse, anemia, thrombocytopenia, hypokalemia hyponatremia, high anion gap metabolic acidosis due to starvation ketosis dehydration vomiting. Patient was admitted to [facility] received IV fluid, pain control, peripheral nutrition, electrolyte replacement, clinically monitored. Overall patient's clinical condition improved, having bowel movement passing gas abdominal pain improved nausea improved tolerating clear liquid diet then GI soft diet, remained afebrile. Patient be discharged with instructions to slowly advance diet, abstain from any high fat meals, abstain from any alcohol. He should follow-up with a GI doctor at [facility] in the next month. I strongly advised him to completely abstain from any alcohol. Follow-up with primary care provider to recheck his CBC and electrolytes in 96 hours. If any worsening abdominal pain or fevers go to the emergency room. I have also sent him on a short supply of oxycodone for abdominal pain, Zofran for nausea, and instructions to slowly advance diet. Physical Exam Const: COMMON NORMALS: no acute distress and patient oriented x3 Resp: COMMON NORMALS: normal respiratory effort, No retractions, No use of accessory muscles and clear to auscultation bilaterally AUSCULTATION: clear to auscultation bilaterally Cardio: COMMON NORMALS: regular rate, regular rhythm, S1 normal heart sound present and S2 normal heart sound present RATE: regular rate RHYTHM: regular rhythm HEART SOUNDS: S1 normal heart sound present and S2 normal heart sound present GI: COMMON NORMALS: Normal to inspection, nondistended, normoactive bowel sounds present and non-tender Extremity: COMMON NORMALS: capillary refill normal, no clubbing, cyanosis or edema, no calf tenderness and no pedal edema Neuro: COMMON NORMALS: patient oriented x3 Psych: COMMON NORMALS: mental status grossly normal Urinary Catheter Management: Orozco: Cath Placed During This Visit: yes, but has since been removed by the nurse Reason for Continuing Indwelling Catheter: Acute Urinary Retention or Obstruction Urinary Catheter Date of Insertion: 04/14/23 Urinary Catheter Time of Insertion: 13:09 Date Urinary Catheter Removed: 04/16/23 Time Urinary Catheter Discontinued: 14:00 Discharge Data Studies Completed and Pending Completed Studies During Hospitalization Category Date Time Status CT abdomen pelvis w con* [id number] Stat Cat Scan 04/14/23 02:34 Completed CXRP [XR chest 1V portable [id number]] Routine Exams 04/14/23 13:48 Completed Pending at discharge Category Date Time Status Blood Culture Routine Lab 04/14/23 07:45 Results C Reactive Protein AM LABS Lab 04/18/23 04:00 Ordered Complete Blood Count w/Auto AM LABS Lab 04/18/23 04:00 Ordered Comprehensive Metabolic Panel AM LABS Lab 04/18/23 04:00 Ordered Magnesium AM LABS Lab 04/18/23 04:00 Ordered Phosphorus AM LABS Lab 04/18/23 04:00 Ordered Procalcitonin AM LABS Lab 04/18/23 04:00 Ordered Urine Culture Routine Lab 04/15/23 22:00 Results Radiology Impressions Abdomen/Pelvis CT 04/14/23 02:34 IMPRESSION: 1. Findings consistent with mild acute pancreatitis. 2. Findings raising suspicion for gastritis. Recommend clinical correlation. Further evaluation with upper endoscopy recommended as clinically indicated. 3. Stable marked hepatomegaly and stable marked fatty infiltration of the liver. Chest X-Ray 04/14/23 13:48 IMPRESSION: Satisfactory placement RIGHT sided PICC line. Laboratory Results WBC 2.6 10^3/uL (4.0-10.0) L 04/17/23 05:04 Corrected WBC Cancelled 04/14/23 00:58 RBC 3.71 10^6/uL (4.1-5.3) L 04/17/23 05:04 Hgb 12.6 g/dL (11.7-16.6) 04/17/23 05:04 Hct 36.7 % (42.0-52.0) L 04/17/23 05:04 MCV 98.9 fl (80-94) H 04/17/23 05:04 MCH 34.0 pg (28.0-34.0) 04/17/23 05:04 MCHC 34.3 g/dL (30.0-36.0) 04/17/23 05:04 RDW 12.0 % (12.1-15.1) L 04/17/23 05:04 Plt Count 52 10^3/cmm (130-400) L D 04/17/23 05:04 MPV 12.1 fL (7.4-10.4) H 04/17/23 05:04 Gran % Cancelled 04/14/23 00:58 Neut % (Auto) 41.0 % 04/17/23 05:04 Lymph % (Auto) 45.8 % 04/17/23 05:04 [place] % (Auto) 10.8 % 04/17/23 05:04 Eos % (Auto) 1.2 % 04/17/23 05:04 Baso % (Auto) 0.8 % 04/17/23 05:04 Neut # (Auto) 1.07 10^3/uL (1.8-7.7) L 04/17/23 05:04 Lymph # (Auto) 1.2 10^3/uL (0.8-4.8) 04/17/23 05:04 [place] # (Auto) 0.3 10^3/uL (0.2-0.9) 04/17/23 05:04 Eos # (Auto) 0.0 10^3/uL (0.0-0.8) 04/17/23 05:04 Baso # (Auto) 0.0 10^3/uL (0.0-0.1) 04/17/23 05:04 Absolute Gran (auto) Cancelled 04/14/23 00:58 Nucleated RBC % (auto) 0 % 04/17/23 05:04 Nucleated RBCs # 0.0 /100WBC 04/17/23 05:04 Peripher Smr Path Cons Sent for review 04/15/23 04:25 PT 13.70 SECONDS (12.1-14.9) 04/14/23 09:58 INR 1.02 (0.8-1.2) 04/14/23 09:58 Sodium 132 mmol/L (136-145) L 04/17/23 05:04 Potassium 3.3 mmol/L (3.5-5.1) L 04/17/23 05:04 Chloride 94 mmol/L (98-107) L 04/17/23 05:04 Carbon Dioxide 27 mmol/L (22-29) 04/17/23 05:04 Anion Gap 14.3 (5-19) 04/17/23 05:04 BUN 8 mg/dL (6-20) 04/17/23 05:04 Creatinine 0.5 mg/dL (0.7-1.2) L 04/17/23 05:04 GFR Calculation 192.7 mL/min (90-130) H 04/17/23 05:04 Glucose 86 mg/dL (65-115) 04/17/23 05:04 Calculated Osmolality 272 mOsm/kg (285-295) L 04/17/23 05:04 Lactic Acid 0.7 mmol/L (0.5-2.2) 04/15/23 04:25 Calcium 8.7 mg/dL (8.5-10.5) 04/17/23 05:04 Phosphorus 2.5 mg/dL (2.5-4.5) 04/17/23 05:04 Magnesium 1.9 mg/dL (1.7-2.3) 04/17/23 05:04 Total Bilirubin 2.2 mg/dL (0.15-1.2) H 04/17/23 05:04 AST 282 U/L (0-40) H 04/17/23 05:04 ALT 230 U/L (0-41) H 04/17/23 05:04 Alkaline Phosphatase 113 U/L (40-130) 04/17/23 05:04 C-Reactive Protein 45.2 mg/L (0.0-4.9) H 04/17/23 05:04 Total Protein 6.4 g/dL (6.6-8.7) L 04/17/23 05:04 Albumin 3.7 g/dL (3.5-5.2) 04/17/23 05:04 Globulin 2.7 g/dL (1.3-4.6) 04/17/23 05:04 Triglycerides 76 mg/dL (0-150) 04/14/23 02:10 Cholesterol 237 mg/dL (0-200) H 04/14/23 02:10 LDL Cholesterol, Calc 119 mg/dL (50-129) 04/14/23 02:10 HDL Cholesterol 103 mg/dL (60-100) H 04/14/23 02:10 LDL/HDL Ratio 1.16 RATIO (0.00-3.22) 04/14/23 02:10 Cholesterol/HDL Ratio 2.30 mg/dL (1.0-5.00) 04/14/23 02:10 Amylase 218 U/L (28-100) H 04/14/23 02:10 Lipase 63 U/L (13-60) H 04/17/23 05:04 Vitamin B12 > 2000 pg/mL (232-1245) H 04/14/23 02:10 Folate 6.6 ng/mL (4.5-32.2) 04/14/23 02:10 Procalcitonin 0.23 ng/mL (0-0.5) 04/17/23 05:04 TSH 0.68 uIU/mL (0.27-4.20) 04/14/23 02:10 Urine Color Yellow (Yellow) 04/15/23 22:00 Urine Appearance Clear (CLEAR) 04/15/23 22:00 Urine pH 9 (5-7) H 04/15/23 22:00 Ur Specific [place] 1.010 (1.005-1.030) 04/15/23 22:00 Urine Protein Neg (Negative) 04/15/23 22:00 Urine Glucose (UA) Norm (Normal) 04/15/23 22:00 Urine Ketones 1+ (Negative) H 04/15/23 22:00 Urine Blood Neg (Negative) 04/15/23 22:00 Urine Nitrate Negative (Negative) 04/15/23 22:00 Urine Bilirubin Neg (Negative) 04/15/23 22:00 Prot Sulfosalicylic Acd Negative (Negative) 04/15/23 22:00 Urine Urobilinogen Norm mg/dL (Negative) 04/15/23 22:00 Ur Leukocyte Esterase Negative (Negative) 04/15/23 22:00 Urine Opiates Screen Positive ng/mL (Negative) H 04/14/23 13:02 Ur Barbiturates Screen Negative ng/mL (Negative) 04/14/23 13:02 Ur Phencyclidine Scrn Negative ng/mL (Negative) 04/14/23 13:02 Ur Amphetamines Screen Negative ng/mL (Negative) 04/14/23 13:02 U Benzodiazepines Scrn Negative ng/mL (Negative) 04/14/23 13:02 Urine Cocaine Screen Negative ng/mL (Negative) 04/14/23 13:02 U Marijuana (THC) Screen Negative ng/mL (Negative) 04/14/23 13:02 Hepatitis A IgM Ab Non-reactive (Nonreactive) 04/15/23 Unknown Hep Bs Antigen Non-reactive (Nonreactive) 04/15/23 Unknown Hep B Core IgM Ab Non-reactive (Nonreactive) 04/15/23 Unknown Hepatitis C Antibody Non-reactive (Nonreactive) 04/15/23 Unknown HIV 1&2 Ab & HIV 1 Ag Non-reactive (Non-Reactiv) 04/15/23 Unknown HIV 1&2 Antibody Non-reactive (Non-Reactiv) 04/15/23 Unknown Vitals Last Vital Signs Temp 97.7 F 04/17/23 08:00 Pulse 85 04/17/23 08:00 Resp 18 04/17/23 08:00 BP 135/93 04/17/23 09:46 Pulse Ox 99 04/17/23 08:00 O2 Del Method Room Air 04/17/23 08:00 Discharge Plan Discharge Patient Disposition: Home Condition: Stable Prescriptions: New oxycodone 5 mg Tablet 5 mg PO Q6H PRN (Reason: Moderate Pain) 7 Days Qty: 28 0RF folic acid 1 mg Tablet 1 mg PO DAILY 30 Days Qty: 30 0RF venlafaxine [Effexor XR] 37.5 mg capsule,extended release 24hr 37.5 mg PO DAILY 30 Days Qty: 30 0RF ondansetron HCl 4 mg tablet 4 mg PO Q8H PRN (Reason: nausea and vomiting) 7 Days Qty: 21 0RF Continued resveratrol 250 mg capsule 250 - 500 mg PO DAILY PRN (Reason: Inflammation) trazodone 50 mg tablet 25 mg PO BEDTIME PRN (Reason: Sleep) Qty: 45 0RF lisinopril 40 mg Tablet 40 mg PO QAM magnesium hydroxide [Milk of Magnesia] 400 mg/5 mL Suspension 30 ml PO BID PRN (Reason: Constipation) sucralfate 100 mg/mL suspension 10 ml PO TID PRN (Reason: ULCERS) minocycline 100 mg capsule 100 mg PO BID PRN (Reason: FOLLICULITIS) vitamin B complex Tablet 1 tab PO DAILY potassium gluconate 595 mg (99 mg) Tablet 595 - 1,190 mg PO DAILY Super Enzyme [id number] mg Capsule 1 cap PO .UP TO TID PRN (Reason: UNKNOWN) Pancreatin 2000 1 cap PO .UP TO TID PRN (Reason: UNKNOWN) clonidine HCl 0.1 mg tablet 0.1 mg PO BID mirtazapine 15 mg tablet 15 mg PO BEDTIME metoprolol tartrate 100 mg Tablet 100 mg PO BID Zofran ODT 4 mg Tablet,Disintegrating 4 mg PO Q6H PRN (Reason: Nausea And Vomiting) multivitamin Liquid 15 ml PO DAILY Nu-Salt See Rx Instructions .ROUTE .COMPLEX Rx Instructions: prn Thc Gummies See Rx Instructions .ROUTE .COMPLEX Rx Instructions: NEEDED omeprazole 40 mg capsule,delayed release(DR/EC) 40 mg PO QAM Qty: 90 0RF metoclopramide HCl [Reglan] 10 mg tablet 10 mg PO Q6H PRN (Reason: nausea and vomiting) Qty: 90 1RF Discontinued hydrocodone-acetaminophen 5-325 mg tablet 1 tab PO Q8H PRN (Reason: pain) Qty: 14 0RF Discharge Orders: Discharge Order (Routine); Ordered 04/17/23 Ordered By: Troy Hopson Referrals: Antonio Alvarado MD [Primary Care Provider] - Discharge Diet: Regular and GI Soft Discharge Activity: Resume usual activity Patient Instructions: Abuse of Alcohol (DC), Opioid Safety Activity Restrictions/Additional Instructions: - Please abstain from alcohol consumption -Please see your primary care provider 1 week -If you recurrent nausea, vomiting, abdominal pain go to emergency room -Please use oxycodone sparingly for pain, do not drive operate machinery or drink while taking medication Discharge Attestations Time Spent in Discharge Care*: greater than 30 min Status at Discharge: Cognitive status at discharge: cognitively intact, Behavioral status at discharge: cooperative, Quality Metrics Clinical Quality Measures [ No reported AMI, CVA or VTE this stay] Coding Level of Care Code 45853 Total time (in minutes) for Discharge: 45 Diagnoses Thrombocytopenia D69.6 High anion gap metabolic acidosis E87.29 Hypokalemia E87.6 Hyponatremia E87.1 Pancreatitis K85.90 Anxiety and depression F41.9; F32.A GERD (gastroesophageal reflux disease) K21.9 Hyperlipidemia E78.5 Hypertension I10 Acute on chronic pancreatitis K85.90; K86.1 Alcohol abuse F10.10 Hypomagnesemia E83.42 Transaminitis R74.01 Hyperbilirubinemia E80.6
[2023-04-17 12:20] VITALS: BP 135/93; PULSE 77; RESP 18; TEMP 36.7; O2SAT 95
--- NOTE | 2023-04-17 12:25 | PC.NURSE ---
Patient's IV and PICC line removed intact. Patient tolerated well. No bleeding notd from PICC line removal. Patient is A&Ox3. Respirations even and non-labored on room air. Reviewed discharge with patient and . Patient and verbalized understanding of discharge instructions and how to take new medications and of follow up appointments. Patient ambulated from the Med-Surg floor with a steady gait and non obvious sign of distress.
--- NOTE | 2023-04-18 12:03 | PC.SOCIAL ---
Message sent to Dr. Alvarado office to arrange TCM follow up.
== END 2023-04-17 12:20 | disposition home or self-care (01) | DRG 439 ==
LOC: ER 04-14 03:34 → ER IP 04-14 03:48 → MEDSURG 04-14 13:37
PROVIDERS: Admitting Provider Internal Medicine; Emergency Provider Emergency Medicine; PCP Family Medicine Adult Medicine; Visit Provider Family Medicine
DX: K85.20 Alcohol induced acute pancreatitis without necrosis or infection (principal); E87.1 Hypo-osmolality and hyponatremia; E87.20 Acidosis, unspecified; D64.9 Anemia, unspecified; E83.42 Hypomagnesemia; K86.0 Alcohol-induced chronic pancreatitis; F10.10 Alcohol abuse, uncomplicated; F43.10 Post-traumatic stress disorder, unspecified; F41.9 Anxiety disorder, unspecified; F32.A Depression, unspecified; K21.9 Gastro-esophageal reflux disease without esophagitis; E78.5 Hyperlipidemia, unspecified; I10 Essential (primary) hypertension; D69.59 Other secondary thrombocytopenia; E87.6 Hypokalemia; E86.0 Dehydration; N62 Hypertrophy of breast; Z79.891 Long term (current) use of opiate analgesic
CPT/HCPCS: 36415; 36569; 51702; 71045; 74177; 80048; 80053; 80061; 80074; 80306; 80503; 81003; 82150; 82607; 82746; 83605; 83690; 83735; 84100; 84145; 84443; 85025; 85610; 86140; 87040; 87086; 87806; 93005; 96365; 96375; 96376; 99285; C9113; J0360; J1170; J1630; J2060; J2270; J2405; J2765; J3411; J3475; J3480; J7030; J7120; Q9967

== ENCOUNTER → 2023-04-19 13:32 | Outpatient (BNVA) | payer MEDICAID, SELFPAY | PROVIDERS: PCP Family Medicine Adult Medicine; Visit Provider Family Medicine Adult Medicine | DX: E83.42 Hypomagnesemia (principal); K85.90 Acute pancreatitis without necrosis or infection, unspecified; K86.1 Other chronic pancreatitis; D69.6 Thrombocytopenia, unspecified; E87.6 Hypokalemia; E87.1 Hypo-osmolality and hyponatremia; Z13.9 Encounter for screening, unspecified; K21.9 Gastro-esophageal reflux disease without esophagitis; R11.0 Nausea; E78.5 Hyperlipidemia, unspecified; I10 Essential (primary) hypertension; R07.9 Chest pain, unspecified | CPT/HCPCS: 80053; 83735; 84403; 85025 ==

== ENCOUNTER 2023-04-27 09:56 | Emergency (ER) | payer MEDICAID, SELFPAY ==
[2023-04-27 09:59] VITALS: BP 118/85; PULSE 80; RESP 18; TEMP 36.8; O2SAT 98; BMI 27.1
[2023-04-27 10:29] LABS: Basophils % 0.8 %; Eosinophils % 0.2 %; Hematocrit 38.5 % (42.0-52.0); Lymphocytes # 0.8 10^3/uL (0.8-4.8); Lymphocytes % 16.6 %; Mean Corpuscular HGB Conc 33.8 g/dL (30.0-36.0); Mean Corpuscular Hemoglobin 33.1 pg (28.0-34.0); Mean Platelet Volume 8.6 fL (7.4-10.4); Monocytes # 0.3 10^3/uL (0.2-0.9); Monocytes % 6.6 %; Neutrophils # 3.77 10^3/uL (1.8-7.7); Neutrophils % 75.6 %; Nucleated Red Blood Cells % 0 %; Platelet Count 196 10^3/cmm (130-400); Red Blood Count 3.93 10^6/uL (4.1-5.3); Red Cell Distribution Width 13.3 % (12.1-15.1)
--- NOTE | 2023-04-27 10:36 | CT_ITS ---
WS: [id number] CT ABDOMEN AND PELVIS WITH CONTRAST HISTORY: Abdominal pain and tenderness, nausea and vomiting TECHNIQUE: Imaging performed of the abdomen and pelvis with IV contrast. Single phase imaging of the abdomen. Coronal and sagittal reformats are submitted. All CT scans at [facility] use at [address] one of these dose optimization techniques: automated exposure control; mA and/or kV adjustment per patient size (includes targeted exams where dose is matched to clinical indication); or iterative re construction. IV CONTRAST: Omnipaque 350; 100 mL IV. Oral contrast: No DLP: 799.41 mGy.cm COMPARISON: 09/16/2020, 04/14/2023 Lower thorax: Lung bases are clear. Heart is normal size. No hiatal hernia. Liver/biliary system: Marked low attenuation from hepatic steatosis. Enhancing 2.1 cm mass in the inf erior RIGHT lobe of the liver has been previously described. [place] to be a hemangioma with only slight increase in size since 09/16/2020. Gallbladder: Normal. No gallstones or wall thickening. No pericholecystic fluid. Pancreas: Pancreas is mildly enlarged and edematous. Progression of edematous changes and loss of the normal contour since 04/14/2023. There is no evidence for necrosis or hemorrhage. Pancreatic duct is n ormal. No abscess or pseudocyst. Spleen: Normal size spleen. No mass or infarct. Adrenal glands: Normal. Right kidney: Normal. Left kidney: Normal. Aorta: Normal. Lymphadenopathy: None. Free fluid: None. GI tract: As on the prior study mild thickening of the gastric mucosa. Normal appendix. No obstructio n. Abdominal wall: Unremarkable abdominal wall. No hernia. Pelvis: No free fluid or adenopathy within the pelvis. Bones: Unremarkable. CT/CT abdomen pelvis w con* [id number] IMPRESSION: 1. Edematous mildly enlarged pancreas has progressed since 04/14/2023. Suspiciou s for mild acute pancreatitis. No pseudocyst or necrosis. 2. Marked hepatic steatosis and enlargement with hemangioma. 3. Normal appendix.
--- NOTE | 2023-04-27 10:38 | ED_ITS ---
Documented by User: ROBERTO Duncan 04/27/23 16:54 HPI - Abdominal Pain General: Chief Complaint: Abdominal Pain Stated Complaint: rt abd pain Time Seen by Provider: 04/27/23 09:58 History of Present Illness: Patient is a 32-year-old male comes to the ED via EMS with abdominal pain. Patient has a history of alcohol abuse and chronic pancreatitis. Patient says he has been drinking daily for the past several weeks and started drinking again after he got out of the hospital for pancreatitis on March 15. Patient states he has not been eating well since discharged from hospital and is mostly been consuming alcohol. Patient also reports having a couple falls while intoxicated at his home within the last 3 to 4 days. He does not remember the falls all that well and his roommate said that he hit his head. Unsure if he lost consciousness after these falls. His abdominal pain started approximately 2 days ago. Pain is in the right upper quadrant and mid upper abdomen. He rates his pain currently a 10 out of 10. He states that his fall approximately 2 days ago made abdominal pain worse. He has been nauseous and having multiple episodes of emesis. His last drink of alcohol was yesterday morning. Patient feels like he is going through alcohol withdrawal currently, he feels anxious and is having bilateral upper and lower extremity shakiness. Associated Symptoms: Reports nausea and vomiting; Denies chills, constipation, diarrhea, dysuria, fever(s), hematochezia and hematuria Review of Systems Const: Denies: fever(s), chills or fatigue Eyes: Denies: change in vision or eye discomfort ENMT: Denies: throat pain, odynophagia, nasal discharge or nasal congestion Card: Denies: chest pain, palpitations, edema, swelling of feet/ankles, dyspnea on exertion or orthopnea Resp: Denies: dyspnea, productive cough or non-productive cough GI: Reports: abdominal pain, nausea and vomiting; Denies: diarrhea, constipation or hematochezia : Denies: flank pain, difficulty urinating, dysuria or hematuria Musc: Denies: neck pain, back pain or extremity swelling Skin/Breast: Denies: rash or new lesions Neuro: Reports: involuntary movements (Alcohol tremors in extremities); Denies: headache(s), numbness in extremities or weakness in extremities Psych: Reports: anxiety (Anxious from alcohol withdrawal) PFS ED PFSH: Medical History Acute on chronic pancreatitis Acute posttraumatic stress disorder Alcohol abuse Anxiety and depression Chest pain Chronic nausea Folliculitis GERD (gastroesophageal reflux disease) Gynecomastia, male Hyperlipidemia Hypertension Hypomagnesemia Marital/partner relational problem Panic attack Transaminitis Surgical History No pertinent past surgical history Family History Father Hypertension Social History Smoking and tobacco status: never smoked Alcohol intake: current Alcohol intake frequency: 0-2 Drinks per Day Substance/Drug Use: never Marital status: Number of children: 5 Current occupational status: employed Current gender identity: Male Physical Exam Const: COMMON NORMALS: patient oriented x3 and alert HENMT: COMMON NORMALS: normocephalic HEAD & SCALP: normocephalic MOUTH: Normal oral and palatal mucosa present THROAT: posterior oropharynx normal and uvula midline Neck/C-Spine: COMMON NORMALS: supple GENERAL: Yes normal visual inspection Resp: COMMON NORMALS: normal respiratory effort, No retractions, No use of accessory muscles and clear to auscultation bilaterally AUSCULTATION: clear to auscultation bilaterally Cardio: COMMON NORMALS: regular rate, regular rhythm, S1 normal heart sound present, S2 normal heart sound present, No gallops present (Cardio), No clicks present (Cardio), No murmurs present (Cardio) and Peripheral pulses 2+ throughout RATE: regular rate RHYTHM: regular rhythm HEART SOUNDS: S1 normal heart sound present and S2 normal heart sound present PERIPHERAL PULSES: Peripheral pulses 2+ throughout GI: COMMON NORMALS: Normal to inspection, nondistended, normoactive bowel sounds present, Soft to palpation and no masses PALPATION: Yes Soft to palpation and Yes Tenderness to palpation present (GI) (Right upper quadrant and mid upper abdominal tenderness) Details: RUQ : COMMON NORMALS: Yes no CVA tenderness BLADDER/KIDNEY EXAM: Yes no CVA tenderness Back/Pelvis: COMMON NORMALS: no CVA tenderness Extremity: COMMON NORMALS: normal to inspection NARRATIVE EXTREMITY EXAM: Patient having bilateral upper extremity alcoholic tremors in hands. Neuro: COMMON NORMALS: patient oriented x3 SENSORIUM/ORIENTATION: Yes alert GAIT: Yes Normal gait present Skin: GENERAL SKIN EXAM: dry skin Course Vital Signs: Vital signs: Vital Signs Temperature 98.2 F 04/27/23 09:59 Pulse Rate 80 04/27/23 09:59 Respiratory Rate 15 04/27/23 12:05 Blood Pressure 118/85 04/27/23 09:59 Pulse Oximetry 98 04/27/23 12:05 Oxygen Delivery Me thod Room Air 04/27/23 09:59 MDM - Abdominal Pain Medical Decision Making Patient is a 32-year-old male comes to the ED via EMS with abdominal pain. Patient has a history of alcohol abuse and chronic pancreatitis. Patient says he has been drinking daily for the past several weeks and started drinking again after he got out of the hospital for pancreatitis on March 15. Patient states he has not been eating well since discharged from hospital and is mostly been consuming alcohol. Patient also reports having a couple falls while intoxicated at his home within the last 3 to 4 days. He does not remember the falls all that well and his roommate said that he hit his head. Unsure if he lost consciousness after these falls. His abdominal pain started approximately 2 days ago. Pain is in the right upper quadrant and mid upper abdomen. He rates his pain currently a 10 out of 10. He states that his fall approximately 2 days ago made abdominal pain worse. He has been nauseous and having multiple episodes of emesis. His last drink of alcohol was yesterday morning. Patient feels like he is going through alcohol withdrawal currently, he feels anxious and is having bilateral upper and lower extremity shakiness. Vitals are stable. Patient has some right upper quadrant abdominal tenderness and he also has some bilateral upper extremity alcoholic tremors in the hands. Rest of exam is benign. CBC and CMP are unremarkable. Alcohol level 42. Lipase was normal at 23. CT of abdomen pelvis shows chronic pancreatitis with a suspicion for mild acute pancreatitis, but no pseudocyst or necrosis seen. Patient was given IV fluids, nausea meds, pain meds and Ativan to help with his symptoms. He was ab le to tolerate p.o. fluids here in the ED he was diagnosed with acute on chronic pancreatitis, alcohol abuse and alcohol withdrawal symptoms. He was told to follow-up with his PCP within the next couple days for reevaluation. He has pain meds at home and also meds that his PCP has given him to help manage his withdrawal symptoms. He was told to go on a clear liquid diet for the next 24 to 48 hours and slowly advance diet as tolerated. Strict return to ED precautions given. Patient understood and agreed with plan. Lab Data I reviewed the patient's lab results. 04/27/23 10:22 04/27/23 10:22 Labs/Radiology: Radiology Impressions Abdomen/Pelvis CT 04/27/23 10:36 IMPRESSION: 1. Edematous mildly enlarged pancreas has progressed since 04/14/2023. Suspicious for mild acute pancreatitis. No pseudocyst or necrosis. 2. Marked hepatic steatosis and enlargement with hemangioma. 3. Normal appendix. Head CT 04/27/23 10:40 IMPRESSION: Negative head CT. Laboratory Results WBC 5.0 10^3/uL (4.0-10.0) 04/27/23 10:22 RBC 3.93 10^6/uL (4.1-5.3) L 04/27/23 10:22 Hgb 13.0 g/dL (11.7-16.6) 04/27/23 10:22 Hct 38.5 % (42.0-52.0) L 04/27/23 10:22 MCV 98.0 fl (80-94) H 04/27/23 10:22 MCH 33.1 pg (28.0-34.0) 04/27/23 10:22 MCHC 33.8 g/dL (30.0-36.0) 04/27/23 10:22 RDW 13.3 % (12.1-15.1) 04/27/23 10:22 Plt Count 196 10^3/cmm (130-400) 04/27/23 10:22 MPV 8.6 fL (7.4-10.4) 04/27/23 10:22 Neut % (Auto) 75.6 % 04/27/23 10:22 Lymph % (Auto) 16.6 % 04/27/23 10:22 Cameron % (Auto) 6.6 % 04/27/23 10:22 Eos % (Auto) 0.2 % 04/27/23 10:22 Baso % (Auto) 0.8 % 04/27/23 10:22 Neut # (Auto) 3.77 10^3/uL (1.8-7.7) 04/27/23 10:22 Lymph # (Auto) 0.8 10^3/uL (0.8-4.8) 04/27/23 10:22 Cameron # (Auto) 0.3 10^3/uL (0.2-0.9) 04/27/23 10:22 Eos # (Auto) 0.0 10^3/uL (0.0-0.8) 04/27/23 10:22 Baso # (Auto) 0.0 10^3/uL (0.0-0.1) 04/27/23 10:22 Nucleated RBC % (auto) 0 % 04/27/23 10:22 Nucleated RBCs # 0.0 /100WBC 04/27/23 10:22 Sodium 142 mmol/L (136-145) 04/27/23 10:22 Potassium 3.8 mmol/L (3.5-5.1) 04/27/23 10:22 Chloride 99 mmol/L (98-107) 04/27/23 10:22 Carbon Dioxide 25 mmol/L (22-29) 04/27/23 10:22 Anion Gap 21.8 (5-19) H 04/27/23 10:22 BUN 4 mg/dL (6-20) L 04/27/23 10:22 Creatinine 0.7 mg/dL (0.7-1.2) 04/27/23 10:22 GFR Calculation 130.7 mL/min (90-130) H 04/27/23 10:22 Glucose 105 mg/dL (65-115) 04/27/23 10:22 Calculated Osmolality 291 mOsm/kg (285-295) 04/27/23 10:22 Calcium 8.2 mg/dL (8.5-10.5) L 04/27/23 10:22 Total Bilirubin 1.2 mg/dL (0.15-1.2) 04/27/23 10:22 AST 104 U/L (0-40) H 04/27/23 10:22 ALT 133 U/L (0-41) H 04/27/23 10:22 Alkaline Phosphatase 122 U/L (40-130) 04/27/23 10:22 Total Protein 6.2 g/dL (6.6-8.7) L 04/27/23 10:22 Albumin 4.0 g/dL (3.5-5.2) 04/27/23 10:22 Globulin 2.2 g/dL (1.3-4.6) 04/27/23 10:22 Lipase 23 U/L (13-60) 04/27/23 10:22 Ethyl Alcohol 42 mg/dL (0-10) H 04/27/23 10:22 Discharge Plan Discharge Patient Disposition: Home Clinical Impression: Acute on chronic pancreatitis, Alcohol abuse, Withdrawal symptoms, alcohol Condition: Stable Prescriptions: New Reglan 10 mg tablet 10 mg PO Q6H PRN (Reason: nausea and vomiting) Qty: 30 0RF No Action resveratrol 250 mg capsule 250 - 500 mg PO DAILY PRN (Reason: Inflammation) mupirocin 2 % ointment 1 applic topical BID 7 Days Qty: 22 0RF ondansetron 4 mg tablet,disintegrating 4 mg PO Q6H PRN (Reason: nausea and vomiting) Qty: 20 0RF trazodone 50 mg tablet 25 mg PO BEDTIME PRN (Reason: Sleep) Qty: 45 0RF mirtazapine 15 mg tablet 15 mg PO BEDTIME Qty: 30 0RF lisinopril 40 mg Tablet 40 mg PO QAM magnesium hydroxide [Milk of Magnesia] 400 mg/5 mL Suspension 30 ml PO BID PRN (Reason: Constipation) sucralfate 100 mg/mL suspension 10 ml PO TID PRN (Reason: ULCERS) minocycline 100 mg capsule 100 mg PO BID PRN (Reason: FOLLICULITIS) vitamin B complex Tablet 1 tab PO DAILY potassium gluconate 595 mg (99 mg) Tablet 595 - 1,190 mg PO DAILY Super Enzyme [id number] mg Capsule 1 cap PO .UP TO TID PRN (Reason: UNKNOWN) Pancreatin 2000 1 cap PO .UP TO TID PRN (Reason: UNKNOWN) clonidine HCl 0.1 mg tablet 0.1 mg PO BID metoprolol tartrate 100 mg Tablet 100 mg PO BID ondansetron 4 mg Tablet,Disintegrating 4 mg PO Q6H PRN (Reason: Nausea And Vomiting) folic acid 1 mg Tablet 1 mg PO DAILY 30 Days Qty: 30 0RF Effexor XR 37.5 mg capsule,extended release 24hr 37.5 mg PO DAILY 30 Days Qty: 30 0RF multivitamin Liquid 15 ml PO DAILY Nu-Salt See Rx Instructions .ROUTE .COMPLEX Rx Instructions: prn Thc Gummies See Rx Instructions .ROUTE .COMPLEX Rx Instructions: NEEDED omeprazole 40 mg capsule,delayed release(DR/EC) 40 mg PO QAM Qty: 90 0RF metoclopramide HCl [Reglan] 10 mg tablet 10 mg PO Q6H PRN (Reason: nausea and vomiting) Qty: 90 1RF Discharge Orders: Discharge ED (Routine); Ordered 04/27/23 Ordered By: Compa Urbina Referrals: Antonio Alvarado MD [Primary Care Provider] - Discharge Diet: Advance as tolerated and Clear Liquid Discharge Activity: Increase activity as tolerated Patient Instructions: Pancreatitis (ED), Abuse of Alcohol (ED), Alcohol Withdr awal (ED) Activity Restrictions/Additional Instructions: Follow-up with medical provider as directed in the next 3 to 5 days for reevaluation. Clear liquid diet for the next 24 to 48 hours and slowly advance diet as tolerated. Use your previously prescribed pain meds to help with abdo codi pain. Take medications as prescribed. Also use your previously prescribed medications to help with your alcohol withdrawal symptoms. return to the ER or your medical provider if condition worsens. Please read and understand discharge instructions. Thank you for choosing [facility] for your healthcare needs today. Please realize this is an emergency room and that we are providing you with a medical screening exam and this may not be complete and all inclusive of all the testing and or work up that you may need to determine your ailment or severity of your illness. It is very important that you follow up as instructed or that you return to the Emergency Department should you have concerns or if your condition changes or worsens in any way. Coding Level of Care Code ED Registered Pharmacy Technician for Chg Fwd Documented by User: Igor Diaz DO 04/28/23 22:29 HPI - Abdominal Pain General: Chief Complaint: Abdominal Pain Stated Complaint: rt abd pain Time Seen by Provider: 04/27/23 09:58 [facility] ED PFSH: Medical History Acute on chronic pancreatitis Acute posttraumatic stress disorder Alcohol abuse Anxiety and depression Chest pain Chronic nausea Folliculitis GERD (gastroesophageal reflux disease) Gynecomastia, male Hyperlipidemia Hypertension Hypomagnesemia Marital/partner relational problem Panic attack Transaminitis Surgical History No pertinent past surgical history Family History Father Hypertension Social History Smoking and tobacco status: never smoked Alcohol intake: current Alcohol intake frequency: 0-2 Drinks per Day Substance/Drug Use: never Marital status: Number of children: 5 Current occupational status: employed Current gender identity: Male Course Vital Signs: Vital signs: Vital Signs Temperature 98.2 F 04/27/23 09:59 Pulse Rate 80 04/27/23 09:59 Respiratory Rate 15 04/27/23 12:05 Blood Pressure 118/85 04/27/23 09:59 Pulse Oximetry 98 04/27/23 12:05 Oxygen Delivery Me thod Room Air 04/27/23 09:59 MDM - Abdominal Pain Medical Decision Making Patient is a 32-year-old male comes to the ED via EMS with abdominal pain. Patient has a history of alcohol abuse and chronic pancreatitis. Patient says he has been drinking daily for the past several weeks and started drinking again after he got out of the hospital for pancreatitis on March 15. Patient states he has not been eating well since discharged from hospital and is mostly been consuming alcohol. Patient also reports having a couple falls while intoxicated at his home within the last 3 to 4 days. He does not remember the falls all that well and his roommate said that he hit his head. Unsure if he lost consciousness after these falls. His abdominal pain started approximately 2 days ago. Pain is in the right upper quadrant and mid upper abdomen. He rates his pain currently a 10 out of 10. He states that his fall approximately 2 days ago made abdominal pain worse. He has been nauseous and having multiple episodes of emesis. His last drink of alcohol was yesterday morning. Patient feels like he is going through alcohol withdrawal currently, he feels anxious and is having bilateral upper and lower extremity shakiness. Vitals are stable. Patient has some right upper quadrant abdominal tenderness and he also has some bilateral upper extremity alcoholic tremors in the hands. Rest of exam is benign. CBC and CMP are unremarkable. Alcohol level 42. Lipase was normal at 23. CT of abdomen pelvis shows chronic pancreatitis with a suspicion for mild acute pancreatitis, but no pseudocyst or necrosis seen. Patient was given IV fluids, nausea meds, pain meds and Ativan to help with his symptoms. He was able to tolerate p.o. fluids here in the ED he was diagnosed with acute on chronic pancreatitis, alcohol abuse and alcohol withdrawal symptoms. He was told to follow-up with his PCP within the next couple days for reevaluation. He has pain meds at home and also meds that his PCP has given him to help manage his withdrawal symptoms. He was told to go on a clear liquid diet for the next 24 to 48 hours and slowly advance diet as tolerated. Strict return to ED precautions given. Patient understood and agreed with plan. Chart reviewed and patient discussed with midlevel. Agree with assessment and plan. Lab Data 04/27/23 10:22 04/27/23 10:22 Labs/Radiology: Radiology Impressions Abdomen/Pelvis CT 04/27/23 10:36 IMPRESSION: 1. Edematous mildly enlarged pancreas has progressed since 04/14/2023. Suspicious for mild acute pancreatitis. No pseudocyst or necrosis. 2. Marked hepatic steatosis and enlargement with hemangioma. 3. Normal appendix. Head CT 04/27/23 10:40 IMPRESSION: Negative head CT. Laboratory Results WBC 5.0 10^3/uL (4.0-10.0) 04/27/23 10:22 RBC 3.93 10^6/uL (4.1-5.3) L 04/27/23 10:22 Hgb 13.0 g/dL (11.7-16.6) 04/27/23 10:22 Hct 38.5 % (42.0-52.0) L 04/27/23 10:22 MCV 98.0 fl (80-94) H 04/27/23 10:22 MCH 33.1 pg (28.0-34.0) 04/27/23 10:22 MCHC 33.8 g/dL (30.0-36.0) 04/27/23 10:22 RDW 13.3 % (12.1-15.1) 04/27/23 10:22 Plt Count 196 10^3/cmm (130-400) 04/27/23 10:22 MPV 8.6 fL (7.4-10.4) 04/27/23 10:22 Neut % (Auto) 75.6 % 04/27/23 10:22 Lymph % (Auto) 16.6 % 04/27/23 10:22 Cameron % (Auto) 6.6 % 04/27/23 10:22 Eos % (Auto) 0.2 % 04/27/23 10:22 Baso % (Auto) 0.8 % 04/27/23 10:22 Neut # (Auto) 3.77 10^3/uL (1.8-7.7) 04/27/23 10:22 Lymph # (Auto) 0.8 10^3/uL (0.8-4.8) 04/27/23 10:22 Cameron # (Auto) 0.3 10^3/uL (0.2-0.9) 04/27/23 10:22 Eos # (Auto) 0.0 10^3/uL (0.0-0.8) 04/27/23 10:22 Baso # (Auto) 0.0 10^3/uL (0.0-0.1) 04/27/23 10:22 Nucleated RBC % (auto) 0 % 04/27/23 10:22 Nucleated RBCs # 0.0 /100WBC 04/27/23 10:22 Sodium 142 mmol/L (136-145) 04/27/23 10:22 Potassium 3.8 mmol/L (3.5-5.1) 04/27/23 10:22 Chloride 99 mmol/L (98-107) 04/27/23 10:22 Carbon Dioxide 25 mmol/L (22-29) 04/27/23 10:22 Anion Gap 21.8 (5-19) H 04/27/23 10:22 BUN 4 mg/dL (6-20) L 04/27/23 10:22 Creatinine 0.7 mg/dL (0.7-1.2) 04/27/23 10:22 GFR Calculation 130.7 mL/min (90-130) H 04/27/23 10:22 Glucose 105 mg/dL (65-115) 04/27/23 10:22 Calculated Osmolality 291 mOsm/kg (285-295) 04/27/23 10:22 Calcium 8.2 mg/dL (8.5-10.5) L 04/27/23 10:22 Total Bilirubin 1.2 mg/dL (0.15-1.2) 04/27/23 10:22 AST 104 U/L (0-40) H 04/27/23 10:22 ALT 133 U/L (0-41) H 04/27/23 10:22 Alkaline Phosphatase 122 U/L (40-130) 04/27/23 10:22 Total Protein 6.2 g/dL (6.6-8.7) L 04/27/23 10:22 Albumin 4.0 g/dL (3.5-5.2) 04/27/23 10:22 Globulin 2.2 g/dL (1.3-4.6) 04/27/23 10:22 Lipase 23 U/L (13-60) 04/27/23 10:22 Ethyl Alcohol 42 mg/dL (0-10) H 04/27/23 10:22 Discharge Plan Discharge Patient Disposition: Home Clinical Impression: Acute on chronic pancreatitis, Alcohol abuse, Withdrawal symptoms, alcohol Condition: Stable Prescriptions: New Reglan 10 mg tablet 10 mg PO Q6H PRN (Reason: nausea and vomiting) Qty: 30 0RF No Action resveratrol 250 mg capsule 250 - 500 mg PO DAILY PRN (Reason: Inflammation) mupirocin 2 % ointment 1 applic topical BID 7 Days Qty: 22 0RF ondansetron 4 mg tablet,disintegrating 4 mg PO Q6H PRN (Reason: nausea and vomiting) Qty: 20 0RF trazodone 50 mg tablet 25 mg PO BEDTIME PRN (Reason: Sleep) Qty: 45 0RF mirtazapine 15 mg tablet 15 mg PO BEDTIME Qty: 30 0RF lisinopril 40 mg Tablet 40 mg PO QAM magnesium hydroxide [Milk of Magnesia] 400 mg/5 mL Suspension 30 ml PO BID PRN (Reason: Constipation) sucralfate 100 mg/mL suspension 10 ml PO TID PRN (Reason: ULCERS) minocycline 100 mg capsule 100 mg PO BID PRN (Reason: FOLLICULITIS) vitamin B complex Tablet 1 tab PO DAILY potassium gluconate 595 mg (99 mg) Tablet 595 - 1,190 mg PO DAILY Super Enzyme [id number] mg Capsule 1 cap PO .UP TO TID PRN (Reason: UNKNOWN) Pancreatin 2000 1 cap PO .UP TO TID PRN (Reason: UNKNOWN) clonidine HCl 0.1 mg tablet 0.1 mg PO BID metoprolol tartrate 100 mg Tablet 100 mg PO BID ondansetron 4 mg Tablet,Disintegrating 4 mg PO Q6H PRN (Reason: Nausea And Vomiting) folic acid 1 mg Tablet 1 mg PO DAILY 30 Days Qty: 30 0RF Effexor XR 37.5 mg capsule,extended release 24hr 37.5 mg PO DAILY 30 Days Qty: 30 0RF multivitamin Liquid 15 ml PO DAILY Nu-Salt See Rx Instructions .ROUTE .COMPLEX Rx Instructions: prn Thc Gummies See Rx Instructions .ROUTE .COMPLEX Rx Instructions: NEEDED omeprazole 40 mg capsule,delayed release(DR/EC) 40 mg PO QAM Qty: 90 0RF metoclopramide HCl [Reglan] 10 mg tablet 10 mg PO Q6H PRN (Reason: nausea and vomiting) Qty: 90 1RF Discharge Orders: Discharge ED (Routine); Ordered 04/27/23 Ordered By: Compa Urbina Referrals: Antonio Alvarado MD [Primary Care Provider] - Discharge Diet: Advance as tolerated and Clear Liquid Discharge Activity: Increase activity as tolerated Patient Instructions: Pancreatitis (ED), Abuse of Alcohol (ED), Alcohol Withd jovana (ED) Activity Restrictions/Additional Instructions: Follow-up with medical provider as directed in the next 3 to 5 days for reevaluation. Clear liquid diet for the next 24 to 48 hours and slowly advance diet as tolerated. Use your previously prescribed pain meds to help with abd ominal pain. Take medications as prescribed. Also use your previously prescribed medications to help with your alcohol withdrawal symptoms. return to the ER or your medical provider if condition worsens. Please read and understand discharge instructions. Thank you for choosing [facility] for your healthcare needs today. Please realize this is an emergency room and that we are providing you with a medical screening exam and this may not be complete and all inclusive of all the testing and or work up that you may need to determine your ailment or severity of your illness. It is very important that you follow up as instructed or that you return to the Emergency Department should you have concerns or if your condition changes or worsens in any way. Coding Level of Care Code ED Registered Pharmacy Technician for [facility]an
--- NOTE | 2023-04-27 10:40 | CT_ITS ---
WS: [id number] CT HEAD NONCONTRAST HISTORY: fell and hit head while intoxicated TECHNIQUE: Contiguous axial imaging performed through the brain in 2.5 mm imaging. Bone and soft tiss ue windows. Sagittal and coronal reformats reviewed. All CT scans at [facility] use at least one of these dose optimization techniques: automated exposure control; mA and/or kV adjustment per pa tient size (includes targeted exams where dose is matched to clinical indication); or iterative recon struction. DLP: 1082.49 mGy.cm COMPARISON: 11/29/2022 No acute intracranial hemorrhage, midline shift or mass effect. No atrophy or prior infarcts or herniation. Ventricles: Normal size with no hydrocephalus. No inferior displacement of cerebellar tonsils. Paranasal sinuses: As visualized are clear. Mastoid air cells: Well pneumatized. Calvarium and scalp: Skull is intact with no soft tissue edema or swelling. CT/CT head wo con* [id number] IMPRESSION: Negative head CT.
[2023-04-27] MEDS: LORazepam 2 mg/mL INJ 1 mL 1 MG IVP ×2 (10:44→13:35)
[2023-04-27] MEDS: sodium chloride 0.9% 1,000 ML 999 ML IV (10:44)
[2023-04-27] MEDS: morphine 4 mg/mL SDV 1 mL 2 MG IVP (10:45)
[2023-04-27 10:54] LABS: Alanine Aminotransferase 133 U/L (0-41); Alkaline Phosphatase 122 U/L (40-130); Anion Gap 21.8 (5-19); Aspartate Amino Transferase 104 U/L (0-40); Blood Urea Nitrogen 4 mg/dL (6-20); Calcium 8.2 mg/dL (8.5-10.5); Carbon Dioxide 25 mmol/L (22-29); Chloride 99 mmol/L (98-107); Globulin 2.2 g/dL (1.3-4.6); Glomerular Filtration Rate 130.7 mL/min (90-130); Glucose 105 mg/dL (65-115); Lipase 23 U/L (13-60); Osmolality Calculated 291 mOsm/kg (285-295); Potassium 3.8 mmol/L (3.5-5.1); Sodium 142 mmol/L (136-145); Total Bilirubin 1.2 mg/dL (0.15-1.2); Total Protein 6.2 g/dL (6.6-8.7)
[2023-04-27 11:04] LABS: Alcohol Level 42 mg/dL (0-10)
[2023-04-27] MEDS: iohexol 350 mg/mL 500 mL Btl (per mL) IV (11:17)
[2023-04-27 12:05] VITALS: RESP 15; O2SAT 98
[2023-04-27] MEDS: HYDROmorphone 1 mg/mL INJ 1 mL IVP (12:05)
== END 2023-04-27 14:35 | disposition home or self-care (01) ==
PROVIDERS: Emergency Provider Physician Assistant; PCP Family Medicine Adult Medicine
DX: K85.20 Alcohol induced acute pancreatitis without necrosis or infection (principal); K86.0 Alcohol-induced chronic pancreatitis; F10.139 Alcohol abuse with withdrawal, unspecified; Y90.2 Blood alcohol level of 40-59 mg/100 ml; I10 Essential (primary) hypertension; E78.5 Hyperlipidemia, unspecified
CPT/HCPCS: 36415; 70450; 74177; 80053; 80307; 83690; 85025; 96361; 96374; 96375; 96376; 99285; J1170; J2060; J2270; J7030; Q9967

== ENCOUNTER 2023-05-16 13:53 | Emergency (ER) | payer MEDICAID, SELFPAY ==
[2023-05-16 13:58] VITALS: BP 120/83; PULSE 146; RESP 18; TEMP 36.6; O2SAT 98; BMI 27.8
--- NOTE | 2023-05-16 14:13 | ECG_ITS ---
[facility] Test Date: 2023-05-16 Pat Name: Buddy Cowan Department: Room: Gender: Male Division Head: : 1990 Requested By: Jose Clark Order Number: [id number] Thomas MD: Jorje Eller M.D. Measurements Intervals [place] Rate: 133 P: 65 NV: 158 QRS: 54 QRSD: 75 T: 55 QT: 373 QTc: 556 Interpretive Statements SINUS TACHYCARDIA Compared to ECG 04/14/2023 11:01:47 No significant changes Electronically Signed On 05-16-2023 17:43:00 CDT by Jroje Eller M.D. [id number]
--- NOTE | 2023-05-16 14:16 | W.ED.ALCOHOL ---
HPI - Alcohol General: Chief Complaint: Alcohol Stated Complaint: swalllowed wedding ring Time Seen by Provider: 05/16/23 14:12 History of Present Illness: 33-year-old male presents to the emergency department by EMS. Patient reports that he has really severe insomnia as well as anxiety. He reports taking an Ambien last night because he was desperate to sleep. He says that he is allergic to Ambien stating that he has very bizarre reactions and behavior when he takes it. Regardless, he decided to take it and he reports he has intermittent memories of the rest of the night. He reports his gave him most of the history. When the Ambien was not keeping him asleep, he took 2 of his trazodone 50 mg tablets. He also took mirtazapine. He believes he only took 1 which is 15 mg. He says he really has no recollection of the rest of the night. His videotaped him doing several things. He says that she has video of him speaking completely incoherently. At one point they got into an argument as she was trying to help him and he put his wedding ring in his mouth and swallowed it. He also reports that later he drank a bottle of mouthwash. She told him that he was laying on his back passed out and she had to put him on his side because he kept throwing up. This morning he feels tremulous, guilty, nauseated, and vomited several times. He he says that there was some blood in his vomit. He reports in total there was probably 1 cup of blood. He does have a history of alcohol abuse. Whenever he is in an altered state or around other people that are drinking, he cannot help himself. He was last drinking alcohol approximately 2 weeks ago. He says he had been sober in the interim. His heart rate is in the 130s and 140s and he is tremulous on arrival. He reports that his told him that he was saying he wanted to last night. However, he emphatically states that he is terrified of dying and is not suicidal. He says that when he gets intoxicated, sometimes he says things that he does not remember. Patient later told RN that he's using Kratom. Associated symptoms: Reports depression, diaphoresis, hematemesis, nausea and vomiting; Deny abdominal pain, melena or suicidal ideation Review of Systems General: Reports: 10 or more systems reviewed and unremarkable except in HPI and below Const: Reports: change in appetite, fatigue and diaphoresis; Denies: fever(s) Eyes: Denies: change in vision Card: Reports: palpitations and lightheadedness; Denies: chest pain or edema Resp: Denies: dyspnea or productive cough GI: Reports: nausea, vomiting, hematemesis and heartburn; Denies: abdominal pain, coffee ground emesis, hematochezia or melena : Denies: flank pain, dysuria or urinary frequency Musc: Denies: neck pain, back pain, extremity pain or extremity swelling Skin/Breast: Denies: erythema Neuro: Denies: numbness in extremities, lack of coordination or difficulty walking Psych: Reports: anxiety, depression, sleeping less and irritability; Denies: visual hallucinations, auditory hallucinations, tactile hallucinations, suicidal ideation or homicidal ideation PFS ED PFSH: Medical History (Updated 05/16/23 @ 17:01 by Jose Clark MD) Acute on chronic pancreatitis Acute posttraumatic stress disorder Alcohol abuse Anxiety and depression Chest pain Chronic nausea Folliculitis GERD (gastroesophageal reflux disease) Gynecomastia, male Hyperlipidemia Hypertension Hypomagnesemia Marital/partner relational problem Panic attack Transaminitis Surgical History No pertinent past surgical history Family History Father Hypertension Social History Smoking and tobacco status: never smoked Alcohol intake: current Alcohol intake frequency: 0-2 Drinks per Day Substance/Drug Use: never Marital status: Number of children: 5 Current occupational status: employed Current gender identity: Male Physical Exam Const: COMMON NORMALS: no limitations and alert EXAM LIMITATIONS: no altered mental status HENMT: COMMON NORMALS: normocephalic, atraumatic and external ears normal HEAD & SCALP: normocephalic and atraumatic EXTERNAL EAR: Yes external ears normal MOUTH: no muffled voice Eye: COMMON NORMALS: EOMs intact bilaterally, conjunctivae normal and no scleral icterus CONJUNCTIVA: Yes conjunctivae normal Neck/C-Spine: COMMON NORMALS: no JVD GENERAL: Yes normal visual inspection and Yes trachea midline Resp: COMMON NORMALS: No use of accessory muscles and clear to auscultation bilaterally AUSCULTATION: clear to auscultation bilaterally Cardio: COMMON NORMALS: no JVD and regular rhythm RHYTHM: regular rhythm OTHER: Radial pulse 1+. Tachycardia. Regular. GI: COMMON NORMALS: Soft to palpation PALPATION: Yes Soft to palpation OTHER: Tenderness throughout the epigastric region Neuro: COMMON NORMALS: moves all extremities, no focal motor deficits and no sensory deficits noted SENSORIUM/ORIENTATION: Yes alert SPEECH: speech normal Psych: COMMON NORMALS: mental status grossly normal, Normal thought process present, cooperative and speech normal SPEECH: Yes normal speech THOUGHT PROCESS: Normal thought process present OTHER: Anxious, tremulous, disappointed, guilty, abnormal recent memory Skin: COMMON NORMALS: turgor normal and no jaundice GENERAL SKIN EXAM: turgor normal OTHER: Healing abrasion over the left knee. Course Vital Signs: Vital signs: Vital Signs Temperature 97.9 F 05/16/23 13:58 Pulse Rate 118 H 05/16/23 15:45 Respiratory Rate 20 H 05/16/23 15:45 Blood Pressure 129/80 05/16/23 15:45 Pulse Oximetry 96 05/16/23 15:45 Oxygen Delivery Me thod Room Air 05/16/23 15:45 MDM - Alcohol Medical Decision Making 33-year-old male presents to the emergency department after taking Ambien to try and sleep. He then entered the state of semiconsciousness, which is happened to him before. The details are outlined in the HPI. The patient is tachycardic and tremulous. He is not 100% sure but he does not think he overdosed on mirtazapine. On the trazodone he took 200 mg. He did drink 1 bottle of mouthwash but his reported that he vomited shortly afterwards. He is quite anxious at this time. He also reports he threw up blood. I think big picture, the patient is 1. Anxious and feeling guilty--provide Ativan 2. Withdrawing from or reacting to the alcohol--IV fluids, Ativan, antiemetics 3. Dehydrated-IV fluids 4. Suffering from acute on chronic gastritis??Pepcid, Protonix, n.p.o. 5. Upper abdominal pain likely due to a combination of gastritis and pancreatitis--I will also add a lipase, keep n.p.o., and depending on the results of the LFTs and lipase consider adding imaging of the abdomen. 6. Patient swallowed his wedding ring. This should not cause any significant issues. I can get a KUB to identify location. 7. Pt told RN that he's using Kratom I will obtain a psych clearance work-up to look for any potential coingestions or signs of potentially dangerous toxicity. EKG my interpretation shows a sinus tachycardia at a rate of 133 bpm, there is a normal axis, QRS duration 75 ms, there is no concerning ST segment elevations although there is some nonspecific ST changes with a wobbling baseline probably due to his tremors. No ectopy. QTc is borderline prolonged. Updates Patient has metabolic acidosis with a wide anion gap. There is no history to support ingestion of methanol. Salicylates and acetaminophen are negative. This is probably a combination of starvation ketosis as well as ethanol abuse from the mouthwash. Patient has been given 3 L of IV fluids, 2 mg of IV Ativan. His heart rate went from 146-118. He remains on room air. Lipase is negative. Sodium is 135 with chloride of 90. Normal renal function. KUB shows a metallic ring overlying the gastric bubble--likely still in the stomach. I updated the patient about his condition. He is going to be placed on a bland low-fat diet. He already is taking a PPI. I have asked him to follow-up with his PCP to develop a plan for sobriety. Have asked him to get rid of kratom completely and to go through his medications at home that may be tempt him into an abuse type situation. His mild hypokalemia and metabolic acidosis should improve with slow refeeding in time. The ring in his stomach should pass through into the stool. If it does not pass into the stool over the next couple days, he may talk to his primary care doctor about repeating imaging and potentially endoscopy if absolutely necessary. Lab Data 05/16/23 14:26 05/16/23 14:26 Radiology Impressions KUB X-Ray 05/16/23 14:39 IMPRESSION: There is a metallic ring overlying the gastric bubble corresponding to the clinical history provided. Laboratory Results WBC 7.8 10^3/uL (4.0-10.0) 05/16/23 14:26 RBC 4.33 10^6/uL (4.1-5.3) 05/16/23 14:26 Hgb 14.6 g/dL (11.7-16.6) 05/16/23 14:26 Hct 41.6 % (42.0-52.0) L 05/16/23 14:26 MCV 96.1 fl (80-94) H 05/16/23 14:26 MCH 33.7 pg (28.0-34.0) 05/16/23 14: MCHC 35.1 g/dL (30.0-36.0) 05/16/23 14: RDW 12.8 % (12.1-15.1) 05/16/23 14: Plt Count 226 10^3/cmm (130-400) 05/16/23 14: MPV 9.7 fL (7.4-10.4) 05/16/23 14:26 Neut % (Auto) 64.6 % 05/16/23 14:26 Lymph % (Auto) 28.2 % 05/16/23 14:26 Mason % (Auto) 6.1 % 05/16/23 14:26 Eos % (Auto) 0.1 % 05/16/23 14:26 Baso % (Auto) 0.6 % 05/16/23 14:26 Neut # (Auto) 5.01 10^3/uL (1.8-7.7) 05/16/23 14:26 Lymph # (Auto) 2.2 10^3/uL (0.8-4.8) 05/16/23 14:26 Mason # (Auto) 0.5 10^3/uL (0.2-0.9) 05/16/23 14:26 Eos # (Auto) 0.0 10^3/uL (0.0-0.8) 05/16/23 14:26 Baso # (Auto) 0.1 10^3/uL (0.0-0.1) 05/16/23 14:26 Nucleated RBC % (auto) 0 % 05/16/23 14:26 Nucleated RBCs # 0.0 /100WBC 05/16/23 14:26 Sodium 135 mmol/L (136-145) L 05/16/23 14:26 Potassium 3.4 mmol/L (3.5-5.1) L 05/16/23 14:26 Chloride 90 mmol/L (98-107) L 05/16/23 14:26 Carbon Dioxide 14 mmol/L (22-29) L 05/16/23 14:26 Anion Gap 34.4 (5-19) H 05/16/23 14:26 BUN 8 mg/dL (6-20) 05/16/23 14:26 Creatinine 0.6 mg/dL (0.7-1.2) L 05/16/23 14:26 GFR Calculation 155.2 mL/min (90-130) H 05/16/23 14:26 Glucose 91 mg/dL (65-115) 05/16/23 14:26 Calculated Osmolality 278 mOsm/kg (285-295) L 05/16/23 14:26 Calcium 8.8 mg/dL (8.5-10.5) 05/16/23 14:26 Total Bilirubin 1.3 mg/dL (0.15-1.2) H 05/16/23 14:26 AST 60 U/L (0-40) H 05/16/23 14:26 ALT 48 U/L (0-41) H 05/16/23 14:26 Alkaline Phosphatase 126 U/L (40-130) 05/16/23 14:26 Total Protein 7.1 g/dL (6.6-8.7) 05/16/23 14:26 Albumin 4.4 g/dL (3.5-5.2) 05/16/23 14:26 Globulin 2.7 g/dL (1.3-4.6) 05/16/23 14:26 Lipase 59 U/L (13-60) 05/16/23 14:26 TSH 0.60 uIU/mL (0.27-4.20) 05/16/23 14:26 Salicylates < 0.3 mg/dL (3-10) L 05/16/23 14:26 Acetaminophen < 5.0 ug/mL (10-30) L 05/16/23 14:26 Ethyl Alcohol 55 mg/dL (0-10) H 05/16/23 14:26 Discharge Plan Discharge Patient Disposition: Home Clinical Impression: Polysubstance abuse, Alcoholic ketoacidosis Condition: Stable Prescriptions: Discontinued Kratom See Rx Instructions .ROUTE .COMPLEX Rx Instructions: DIRECTED NEEDED No Action resveratrol 250 mg capsule 250 - 500 mg PO DAILY PRN (Reason: Inflammation) ondansetron 4 mg tablet,disintegrating 4 mg PO Q6H PRN (Reason: nausea and vomiting) Qty: 60 1RF trazodone 50 mg tablet 25 mg PO BEDTIME PRN (Reason: Sleep) Qty: 45 0RF mirtazapine 15 mg tablet 15 mg PO BEDTIME Qty: 30 0RF clonidine HCl 0.1 mg tablet 0.1 mg PO BID Qty: 60 0RF omeprazole 40 mg capsule,delayed release(DR/EC) 40 mg PO QAM Qty: 90 0RF lisinopril 40 mg Tablet 40 mg PO QAM magnesium hydroxide [Milk of Magnesia] 400 mg/5 mL Suspension 30 ml PO BID PRN (Reason: Constipation) sucralfate 100 mg/mL suspension 10 ml PO TID PRN (Reason: ULCERS) minocycline 100 mg capsule 100 mg PO BID PRN (Reason: FOLLICULITIS) vitamin B complex Tablet 1 tab PO DAILY PRN (Reason: UNKNOWN) potassium gluconate 595 mg (99 mg) Tablet 595 - 1,190 mg PO DAILY PRN (Reason: UNKNOWN) Super Enzyme [phone] mg Capsule 1 cap PO .UP TO TID PRN (Reason: UNKNOWN) Pancreatin 2000 1 cap PO .UP TO TID PRN (Reason: UNKNOWN) metoprolol tartrate 100 mg Tablet 100 mg PO BID venlafaxine [Effexor XR] 37.5 mg capsule,extended release 24hr 37.5 mg PO DAILY 30 Days Qty: 30 0RF metoclopramide HCl [Reglan] 10 mg tablet 10 mg PO Q6H PRN (Reason: nausea and vomiting) Qty: 30 0RF multivitamin Liquid 15 ml PO DAILY PRN (Reason: UNKNOWN) Nu-Salt See Rx Instructions .ROUTE .COMPLEX Rx Instructions: prn Thc Gummies See Rx Instructions .ROUTE .COMPLEX Rx Instructions: NEEDED mupirocin 2 % ointment 1 applic topical BID PRN (Reason: UNKNOWN) Discharge Orders: Discharge ED (Routine); Ordered 05/16/23 Ordered By: Jose Clark Referrals: Antonio Alvarado MD [Primary Care Provider] - 4-7 days (Substance abuse. ) Discharge Diet: Advance as tolerated Discharge Activity: Resume usual activity Patient Instructions: Abuse of Alcohol (ED), Opioid Safety, Pain Management Activity Restrictions/Additional Instructions: You have been diagnosed with polysubstance abuse. This can be chronic or may be intermittent. In your case, alcohol seems to be your biggest downfall. It would be elizabeth to avoid any medications or substances which may alter your mental state and make you prone to drink alcohol again. Avoid kratom completely. It is not good for you. Concerning her pancreatitis and gastritis. Continue taking your stomach antiacid. Avoid caffeine, spicy foods, fatty foods. Eat a bland diet for the next 5 to 7 days. Monitor your stool for any blood or black. Return if worsening. Please follow-up with your primary care doctor this week or next to discuss a game plan for your sobriety. It would be elizabeth to get rid of any and all medications in your house which you may abuse, including Ambien Coding Level of Care Code ED Horse Shoer for Al Duran
[2023-05-16 14:31] LABS: Basophils # 0.1 10^3/uL (0.0-0.1); Basophils % 0.6 %; Eosinophils % 0.1 %; Hematocrit 41.6 % (42.0-52.0); Hemoglobin 14.6 g/dL (11.7-16.6); Lymphocytes # 2.2 10^3/uL (0.8-4.8); Lymphocytes % 28.2 %; Mean Corpuscular HGB Conc 35.1 g/dL (30.0-36.0); Mean Corpuscular Hemoglobin 33.7 pg (28.0-34.0); Mean Corpuscular Volume 96.1 fl (80-94); Mean Platelet Volume 9.7 fL (7.4-10.4); Monocytes # 0.5 10^3/uL (0.2-0.9); Monocytes % 6.1 %; Neutrophils # 5.01 10^3/uL (1.8-7.7); Neutrophils % 64.6 %; Nucleated Red Blood Cells % 0 %; Platelet Count 226 10^3/cmm (130-400); Red Blood Count 4.33 10^6/uL (4.1-5.3); Red Cell Distribution Width 12.8 % (12.1-15.1); White Blood Count 7.8 10^3/uL (4.0-10.0)
[2023-05-16] MEDS: LORazepam 2 mg/mL INJ 1 mL IV (14:33)
[2023-05-16] MEDS: sodium chloride 0.9% 1,000 ML 1999 ML IV ×2 (14:33→14:54)
--- NOTE | 2023-05-16 14:39 | XRR_ITS ---
PROCEDURE INFORMATION: Exam: XR Abdomen Exam date and time: 05/16/2023 2:48 PM Age: 33 years old Clinical indication: Screening exam; Other: Foreign body; Additional info: Swallowed wedding ring TECHNIQUE: Imaging protocol: Radiologic exam of the abdomen. 1image(s) are provided. Views: Frontal supine view of the abdomen. 1 View. COMPARISON: 1. CT abdomen pelvis w con* [id number] 04/27/2023 11:12 AM 2. CR XR abdomen 1V* [id number] 12/01/2022 9:57 AM FINDINGS: Lungs: No lobar consolidation is appreciated. Gastrointestinal tract: There is some calcific density although could also represent some ingested bowel content. The bowel gas pattern appears nonobstructive. There is a metallic ring demonstrated of approximately 2.7 cm in diameter overlying the gastric bubble corresponding to the clinical history provided of ring ingestion. Intraperitoneal space: No layering free air is appreciated. The study is focused of the left abdomen. Bones/joints: Osseous alignment is maintained.No interval displaced fracture or dislocation is appreciated. Soft tissues: No interval subcutaneous emphysema is appreciated. No other large radiopaque foreign body is appreciated. Other findings: No other significant interval changes are appreciated. XR/XR KUB [id number] IMPRESSION: There is a metallic ring overlying the gastric bubble corresponding to the clinical history provided.
[2023-05-16] MEDS: pantoprazole 40 mg SDV 80 MG IVP (14:50)
[2023-05-16] MEDS: famotidine 20 mg Tablet 40 MG PO (14:54)
[2023-05-16 15:04] LABS: Alanine Aminotransferase 48 U/L (0-41); Albumin Level 4.4 g/dL (3.5-5.2); Alcohol Level 55 mg/dL (0-10); Alkaline Phosphatase 126 U/L (40-130); Aspartate Amino Transferase 60 U/L (0-40); Blood Urea Nitrogen 8 mg/dL (6-20); Calcium 8.8 mg/dL (8.5-10.5); Carbon Dioxide 14 mmol/L (22-29); Chloride 90 mmol/L (98-107); Globulin 2.7 g/dL (1.3-4.6); Glomerular Filtration Rate 155.2 mL/min (90-130); Glucose 91 mg/dL (65-115); Lipase 59 U/L (13-60); Osmolality Calculated 278 mOsm/kg (285-295); Sodium 135 mmol/L (136-145); Total Bilirubin 1.3 mg/dL (0.15-1.2); Total Protein 7.1 g/dL (6.6-8.7)
[2023-05-16 15:08] LABS: Acetaminophen < 5.0 ug/mL (10-30); Salicylate < 0.3 mg/dL (3-10)
[2023-05-16 15:11] LABS: Anion Gap 34.4 (5-19); Potassium 3.4 mmol/L (3.5-5.1)
--- NOTE | 2023-05-16 15:21 | PC.PHAR ---
PTS VERIFIED PTS MEDICATIONS-PTS STATES THE PT TOOK KRATOM LAST NIGHT WITH HIS TRAZODONE AND ALCOHOL -STATES THE PT IS BAD ABOUT TAKING HIS MEDICATIONS-PTS STATES THE PT STOP TAKING MIRTAZAPINE 2 WEEKS AGO-PTS STATES THE PT HASNT BEEN TAKING THE CLONIDINE 0.1MG BID-PTS STATES THE PT HASNT BEEN ASKING TO TAKES THE EFFEXOR 37.5MG DAILY FILLED ON 04/17/23 30D/S-NOTES ARE MADE IN THE PHARMACY COMMENTS
[2023-05-16 15:45] VITALS: BP 129/80; PULSE 118; RESP 20; O2SAT 96
[2023-05-16] MEDS: OLANZapine 10 mg ODT PO (15:53)
[2023-05-16] MEDS: sodium chloride 0.9% 1,000 ML 999 ML IV (15:53)
[2023-05-16] MEDS: morphine 4 mg/mL SDV 1 mL IVP (16:58)
[2023-05-16 17:39] VITALS: BP 129/80; PULSE 118; RESP 20; O2SAT 96
== END 2023-05-16 17:41 | disposition home or self-care (01) ==
PROVIDERS: Emergency Provider Emergency Medicine; PCP Family Medicine Adult Medicine
DX: F19.10 Other psychoactive substance abuse, uncomplicated (principal); F10.90 Alcohol use, unspecified, uncomplicated; Y90.2 Blood alcohol level of 40-59 mg/100 ml; E87.29 Other acidosis; T18.2XXA Foreign body in stomach, initial encounter; I10 Essential (primary) hypertension; E78.5 Hyperlipidemia, unspecified; Z79.899 Other long term (current) drug therapy
CPT/HCPCS: 74018; 80053; 80307; 83690; 84443; 85025; 93005; 96361; 96374; 96375; 99285; C9113; J2060; J2270; J7030

== ENCOUNTER 2023-06-10 11:03 | Inpatient (IN) | payer MEDICAID, SELFPAY ==
[2023-06-10] VITALS (33 sets, daily range): BP systolic 111–152; BP diastolic 66–100; PULSE 100–115; RESP 14–29; TEMP 36.7; O2SAT 90–100
--- NOTE | 2023-06-10 11:21 | ECG_ITS ---
[facility] Test Date: 2023-06-10 Pat Name: Buddy Cowan Department: Room: Gender: Male Phlebotomy Director: : 1990 Requested By: Igor Isaac Order Number: [id number] Reading MD: Arsalan Abdul Measurements Intervals [place] Rate: 98 P: 71 DC: 171 QRS: 41 QRSD: 80 T: 51 QT: 316 QTc: 404 Interpretive Statements SINUS RHYTHM WITH OCCASIONAL VENTRICULAR PREMATURE COMPLEXES Compared to ECG 05/16/2023 14:23:02 Ventricular premature complex(es) now present Sinus tachycardia no longer present Electronically Signed On 06-10-2023 15:54:55 CDT by Arsalan Abdul [email or web address]/OM/[id number]
[2023-06-10 11:31] LABS: Basophils % 0.2 %; Eosinophils # 0.1 10^3/uL (0.0-0.8); Eosinophils % 1.1 %; Hematocrit 34.6 % (37-53); Lymphocytes # 1.5 10^3/uL (0.8-4.8); Lymphocytes % 27.6 %; Mean Corpuscular HGB Conc 36.1 g/dL (30-55); Mean Corpuscular Hemoglobin 34.2 pg (27-33); Mean Corpuscular Volume 94.5 fl (82-101); Mean Platelet Volume 11.5 fL (7.4-10.4); Monocytes # 0.7 10^3/uL (0.2-0.9); Monocytes % 13.3 %; Neutrophils # 3.05 10^3/uL (1.8-7.7); Neutrophils % 57.4 %; Nucleated Red Blood Cells % 0 %; Platelet Count 89 10^3/cmm (157-399); Red Blood Count 3.66 10^6/uL (3.85-5.65); Red Cell Distribution Width 11.7 % (12.1-15.1); White Blood Count 5.32 10^3/uL (3.29-11.43)
[2023-06-10] MEDS: pantoprazole 40 mg SDV IVP (11:32)
[2023-06-10] MEDS: morphine 4 mg/mL SDV 1 mL IVP ×2 (11:33→13:01)
[2023-06-10] MEDS: lactated ringers 1,000 ML 999 ML IV ×2 (11:34→12:35)
[2023-06-10 11:52] LABS: Alanine Aminotransferase 186 U/L (0-41); Albumin Level 4.4 g/dL (3.5-5.2); Alkaline Phosphatase 143 U/L (40-130); Blood Urea Nitrogen 9 mg/dL (6-20); Calcium 8.2 mg/dL (8.5-10.5); Carbon Dioxide 16 mmol/L (22-29); Chloride 73 mmol/L (98-107); Globulin 2.9 g/dL (1.3-4.6); Glomerular Filtration Rate 247.7 mL/min (90-130); Glucose 87 mg/dL (65-115); Lipase 207 U/L (13-60); Osmolality Calculated 240 mOsm/kg (285-295); Total Protein 7.3 g/dL (6.6-8.7)
[2023-06-10 12:09] LABS: Anion Gap 30.9 (5-19)
[2023-06-10 12:10] LABS: Aspartate Amino Transferase 278 U/L (0-40); Potassium 3.9 mmol/L (3.5-5.1)
[2023-06-10 12:12] LABS: Sodium 116 mmol/L (136-145)
--- NOTE | 2023-06-10 12:18 | W.ED.ABDPA2 ---
HPI - Abdominal Pain General: Chief Complaint: Abdominal Pain Stated Complaint: ABD PAIN Time Seen by Provider: 06/10/23 11:05 Source: patient Mode of arrival: ambulatory History of Present Illness: 33-year-old male with a longstanding history of alcohol abuse presents emergency room abdominal pain nausea and vomiting generally not feeling well he has been on a macario drinking last several days. He is admittedly tends sobriety hold which failed in the past. He has had recurrent episodes of pancreatitis as well he denies any medic easy melena hematemesis or coffee-ground emesis he has not had any problems with his upper GI bleeds or esophageal varices to this point. MD elicited complaint: abdominal pain Pertinent past history: none and other (Recurrent pancreatitis) Onset (ago): hour(s) Location: None Severity: severe Associated Symptoms: Reports diarrhea, nausea and vomiting; Denies bloating, chills, coffee ground emesis, constipation, dysuria, fever(s), hematochezia, hematemesis and melena Review of Systems Const: Reports: change in appetite, fatigue and malaise; Denies: fever(s) or chills ENMT: Denies: throat pain, ear or mastoid pain, nasal discharge or nasal congestion Card: Denies: chest pain, edema, dyspnea on exertion or orthopnea Resp: Denies: dyspnea, productive cough or non-productive cough GI: Reports: abdominal pain, nausea, vomiting and diarrhea; Denies: hematemesis, coffee ground emesis, constipation, bloating, hematochezia or melena : Denies: flank pain, dysuria, urinary frequency or urinary urgency Skin/Breast: Denies: rash or pruritus FORMERLY [facility], [facility]–1983 ED PFSH: Medical History Acute on chronic pancreatitis Acute posttraumatic stress disorder Alcohol abuse Anxiety and depression Chest pain Chronic nausea Folliculitis GERD (gastroesophageal reflux disease) Gynecomastia, male Hyperlipidemia Hypertension Hypomagnesemia Marital/partner relational problem Panic attack Transaminitis Surgical History No pertinent past surgical history Family History Father Hypertension Social History Smoking and tobacco status: never smoked Alcohol intake: current Alcohol intake frequency: 0-2 Drinks per Day Substance/Drug Use: never Marital status: Number of children: 5 Current occupational status: employed Current gender identity: Male Physical Exam Const: GENERAL APPEARANCE: cooperative and comfortable ORIENTATION/CONSCIOUSNESS: Yes awake, Yes oriented to person, Yes oriented to place and Yes oriented to time HENMT: COMMON NORMALS: normocephalic, atraumatic and hearing grossly normal bilaterally HEAD & SCALP: normocephalic and atraumatic Resp: COMMON NORMALS: normal respiratory effort, No retractions, No use of accessory muscles and clear to auscultation bilaterally AUSCULTATION: clear to auscultation bilaterally Cardio: COMMON NORMALS: regular rate, regular rhythm and No murmurs present (Cardio) RATE: regular rate RHYTHM: regular rhythm GI: COMMON NORMALS: No hepatosplenomegaly present AUSCULTATION: Yes normoactive bowel sounds PALPATION: Yes Tenderness to palpation present (GI) (Epigastric) Details: RUQ, No Guarding due to palpation present (GI) and Yes No hepatosplenomegaly present Extremity: COMMON NORMALS: normal to inspection, capillary refill normal, no clubbing, cyanosis or edema, no calf tenderness and no pedal edema Neuro: SENSORIUM/ORIENTATION: Yes oriented to person, Yes oriented to place and Yes oriented to time Skin: COMMON NORMALS: no rashes or lesions noted GENERAL SKIN EXAM: no rashes or lesions noted Course Vital Signs: Vital signs: Vital Signs Pulse Rate 107 H 06/10/23 13:10 Respiratory Rate 16 06/10/23 13:01 Blood Pressure 152/93 06/10/23 13:10 Pulse Oximetry 97 06/10/23 13:10 Oxygen Delivery Me thod Room Air 06/10/23 11:05 MDM - Abdominal Pain Medical Decision Making Acute pancreatitis with hyponatremia elevated liver enzymes. He is highly functional his blood alcohol is at 355. Initially told me been sipping on vodka through the night finished a 6 ounce glass of vodka around 6 AM. Admit keep n.p.o. follow-up laboratory test. Patient has been given IV fluids pain medications and antiemetics as well as Protonix Medical Records I reviewed the patient's medical records. Lab Data I reviewed the patient's lab results. 06/10/23 11:20 06/10/23 11:20 Labs/Radiology: Laboratory Results WBC 5.32 10^3/uL (3.29-11.43) 06/10/23 11:20 RBC 3.66 10^6/uL (3.85-5.65) L 06/10/23 11:20 Hgb 12.50 g/dL (11.27-16.99) 06/10/23 11:20 Hct 34.6 % (37-53) L 06/10/23 11:20 MCV 94.5 fl (82-101) 06/10/23 11:20 MCH 34.2 pg (27-33) H 06/10/23 11:20 MCHC 36.1 g/dL (30-55) 06/10/23 11:20 RDW 11.7 % (12.1-15.1) L 06/10/23 11:20 Plt Count 89 10^3/cmm (157-399) L 06/10/23 11:20 MPV 11.5 fL (7.4-10.4) H 06/10/23 11:20 Neut % (Auto) 57.4 % 06/10/23 11:20 Lymph % (Auto) 27.6 % 06/10/23 11:20 Mckean % (Auto) 13.3 % 06/10/23 11:20 Eos % (Auto) 1.1 % 06/10/23 11:20 Baso % (Auto) 0.2 % 06/10/23 11:20 Neut # (Auto) 3.05 10^3/uL (1.8-7.7) 06/10/23 11:20 Lymph # (Auto) 1.5 10^3/uL (0.8-4.8) 06/10/23 11:20 Mckean # (Auto) 0.7 10^3/uL (0.2-0.9) 06/10/23 11:20 Eos # (Auto) 0.1 10^3/uL (0.0-0.8) 06/10/23 11:20 Baso # (Auto) 0.0 10^3/uL (0.0-0.1) 06/10/23 11:20 Nucleated RBC % (auto) 0 % 06/10/23 11:20 Nucleated RBCs # 0.0 /100WBC 06/10/23 11:20 Sodium 116 mmol/L (136-145) L* 06/10/23 11:20 Potassium 3.9 mmol/L (3.5-5.1) 06/10/23 11:20 Chloride 73 mmol/L (98-107) L 06/10/23 11:20 Carbon Dioxide 16 mmol/L (22-29) L 06/10/23 11:20 Anion Gap 30.9 (5-19) H 06/10/23 11:20 BUN 9 mg/dL (6-20) 06/10/23 11:20 Creatinine 0.4 mg/dL (0.7-1.2) L 06/10/23 11:20 GFR Calculation 247.7 mL/min (90-130) H 06/10/23 11:20 Glucose 87 mg/dL (65-115) 06/10/23 11:20 Calculated Osmolality 240 mOsm/kg (285-295) L 06/10/23 11:20 Calcium 8.2 mg/dL (8.5-10.5) L 06/10/23 11:20 Total Bilirubin 4.0 mg/dL (0.15-1.2) H 06/10/23 11:20 AST 278 U/L (0-40) H 06/10/23 11:20 ALT 186 U/L (0-41) H 06/10/23 11:20 Alkaline Phosphatase 143 U/L (40-130) H 06/10/23 11:20 Total Protein 7.3 g/dL (6.6-8.7) 06/10/23 11:20 Albumin 4.4 g/dL (3.5-5.2) 06/10/23 11:20 Globulin 2.9 g/dL (1.3-4.6) 06/10/23 11:20 Lipase 207 U/L (13-60) H 06/10/23 11:20 Ethyl Alcohol 355 mg/dL (0-10) H* 06/10/23 11:20 Discharge Plan Discharge Patient Disposition: Admitted As Inpatient Admit Provider: Compa Galicia Clinical Impression: Acute on chronic pancreatitis, Acute hyponatremia, Thrombocytopenia, Acute alcohol intoxication Condition: Stable Coding Level of Care Code ED Construction Project Mgr for Al Duran
--- NOTE | 2023-06-10 12:22 | XRR_ITS ---
PROCEDURE INFORMATION: Exam: XR Abdomen Exam date and time: 06/10/2023 12:51 PM Age: 33 years old Clinical indication: Abdominal pain; Additional info: Swallowed ring 6 wks TECHNIQUE: Imaging protocol: Radiologic exam of the abdomen. Views: Frontal supine view of the abdomen. 1 View. COMPARISON: CR XR KUB [id number] 05/16/2023 2:48 PM FINDINGS: Gastrointestinal tract: No air-filled dilated bowel loops or evidence of bowel thickening. Previously visualized metallic ring not visualized today. Intraperitoneal space: No supine evidence of free air. Bones/joints: Unremarkable. XR/XR KUB portable [id number] IMPRESSION: 1. Nonvisualization of metallic ring in keeping with interval passage. 2. Nonobstructive bowel gas pattern.
--- NOTE | 2023-06-10 12:50 | PM.HP ---
Providers/Chief Complaint Admitting Physician: Compa Galicia MD Primary Care Provider: Antonio Alvarado MD Chief Complaint: ABD PAIN History of Present Illness Buddy Cowan is a 33 year old male with a past medical history significant for chronic pancreatitis, posttraumatic stress disorder, alcohol use disorder with abuse, anxiety, depression, GERD, hyperlipidemia, and hypertension who presents to the emergency department with nausea, vomiting, and abdominal pain. Unable to tolerate oral intake. Describes location of pain as epigastric. Reports symptoms are severe. Reports pain 10 out of 10. Reports morphine helped but only for about 20 minutes. Patient has a history of alcohol use disorder. Reports he has been drinking for the past several days after he is relapsed. He attributes his relapse to multiple recent life stressors. He has tried various outpatient treatment methods previously for alcoholism but has found the available treatment options to be limited or even unavailable. Review of Systems Narrative: A complete review of systems was obtained and is negative except as stated in HPI. Medications/Allergies Home Medications Medication Instructions Recorded Confirmed Last Taken Type lisinopril 40 mg tablet 40 mg PO QAM 01/30/21 06/10/23 01/30/21 History resveratrol 250 mg capsule 250 - 500 mg PO DAILY PRN 01/18/22 06/10/23 Unknown History Inflammation Nu-Salt See Rx Instructions .Route .COMPLEX 11/30/22 06/10/23 Unknown History magnesium hydroxide 400 mg/5 mL 30 ml PO BID PRN Constipation 12/22/22 06/10/23 Unknown History oral suspension (Milk of Magnesia) trazodone 50 mg tablet 25 mg PO BEDTIME PRN Sleep #45 tabs 02/27/23 06/10/23 Unknown Rx Pancreat-Bet [id number] 250 1 cap PO .UP TO TID PRN UNKNOWN 04/14/23 06/10/23 Unknown History mg-162 mg-65 mg-125 mg capsule (Super Enzyme) Pancreatin 2000 1 cap PO .UP TO TID PRN UNKNOWN 04/14/23 06/10/23 Unknown History metoprolol tartrate 100 mg tablet 100 mg PO BID 04/14/23 06/10/23 Unknown History minocycline 100 mg capsule 100 mg PO BID PRN FOLLICULITIS 04/14/23 06/10/23 Unknown History potassium gluconate 595 mg (99 mg) 595 - 1,190 mg PO DAILY PRN UNKNOWN 04/14/23 06/10/23 Unknown History tablet sucralfate 100 mg/mL oral 10 ml PO TID PRN ULCERS 04/14/23 06/10/23 Unknown History suspension vitamin B complex 1 tab PO DAILY PRN UNKNOWN 04/14/23 06/10/23 Unknown History mirtazapine 15 mg tablet 15 mg PO BEDTIME #30 tabs 04/24/23 06/10/23 2 Weeks Ago Rx ~05/02/23 stop taking 2 weeks metoclopramide HCl 10 mg tablet 10 mg PO Q6H PRN nausea and 04/27/23 06/10/23 Unknown Rx (Reglan) vomiting #30 tabs ondansetron 4 mg disintegrating 4 mg PO Q6H PRN nausea and 05/02/23 06/10/23 Unknown Rx tablet vomiting #60 tabs clonidine HCl 0.1 mg tablet 0.1 mg PO BID #60 tabs 05/09/23 06/10/23 06/10/23 Rx omeprazole 40 mg capsule,delayed 40 mg PO QAM #90 caps 05/15/23 06/10/23 Unknown Rx release Allergies Allergy/AdvReac Type Severity Reaction Status Date / Time aspirin Allergy Unknown ADR-Gastrointestinal Verified 05/16/23 14:15 Upset NSAIDS (Non-Steroidal Allergy Unknown Unknown Verified 05/16/23 14:15 Anti-Inflamma acetaminophen [From Tylenol] Allergy ADR-Gastrointestinal Verified 05/16/23 14:15 Upset naproxen [From Aleve] Allergy Unknown Verified 06/10/23 11:36 zolpidem [From Ambien] Allergy ADR-Nightma Verified 05/16/23 14:15 re buspirone AdvReac Intermediate ADR-Anxiety Verified 05/16/23 14:15 PFSH Acute PFSH: Medical History (Updated 06/10/23 @ 19:24 by Compa Galicia MD) Acute on chronic pancreatitis Acute posttraumatic stress disorder Alcohol abuse Anxiety and depression Chest pain Chronic nausea Folliculitis GERD (gastroesophageal reflux disease) Gynecomastia, male Hyperlipidemia Hypertension Hypomagnesemia Marital/partner relational problem Panic attack Transaminitis Surgical History No pertinent past surgical history Family History Father Hypertension Social History Smoking and tobacco status: never smoked Alcohol intake: current Alcohol intake frequency: 0-2 Drinks per Day Substance/Drug Use: never Marital status: Number of children: 5 Current occupational status: employed Current gender identity: Male Vitals/I&O/Wt Last Vital Signs Pulse 100 06/10/23 11:40 Resp 16 06/10/23 11:33 BP 147/100 06/10/23 11:40 Pulse Ox 97 06/10/23 11:40 O2 Del Method Room Air 06/10/23 11:05 06/09/23 06/10/23 06/10/23 22:59 06:59 14:59 Intake Total 1000 / 1000 Balance 1000 / 1000 Weight last 48 hrs Weight 90.718 kg Physical Exam Narrative: General: Patient is awake. In moderate to severe distress. Acutely ill-appearing. Head: Normocephalic. Atraumatic. EOM intact. Neck: No JVD. Cardiovascular: Tachycardic. Regular rhythm. Hypertensive. No gallops. No murmurs. Dry mucous membranes. Lungs: Breath sounds are diminished bilateral bases, no use of accessory muscles, no crackles or wheezes. Skin: No rashes. Bruises present. Abdomen: Normal bowel sounds, abdomen soft and nontender. Extremities: No cyanosis or clubbing. Musculoskeletal: No erythematous joints. Neurological: Moves all 4 extremities. No myoclonus. Data 06/10/23 11:20 06/10/23 16:05 A&P Assessment and plan (1) Acute hyponatremia: Severe life-threatening hyponatremia secondary to alcoholism and GI loss from nausea/emesis Start IV fluids Seizure precautions Trend renal panel (2) Acute on chronic pancreatitis: Acute on chronic alcohol induced pancreatitis Associated with transaminitis, hyperbilirubinemia N.p.o. for bowel rest Start IV fluids IV analgesics Antiemetics as needed Monitoring electrolytes (3) Acute alcohol intoxication: Associated with alcohol use disorder with alcohol abuse Alcohol level elevated [facility] protocol Thiamine, folic acid, vitamin Case management consultation (4) Thrombocytopenia: Secondary to alcohol use Continue to monitor (5) Hypertension: Blood pressure is elevated Hydralazine as needed (6) Anxiety and depression: Patient with acute stress Symptoms appear uncontrolled May benefit from psychiatry consultation if symptoms improved Plan DVT prophylaxis: SCD CODE STATUS: Full code Attestations Medical Necessity Statement*: Patient presents with nausea, vomiting, and abdominal pain, found to have acute on chronic pancreatitis with severe hyponatremia, transaminitis, hyperbilirubinemia, dehydration with expected hospitalization to cross 2 midnights for IV fluids, CIWA protocol, IV analgesics, IV antiemetics, and supportive care. Critical Care Time: The high probability of a clinically significant, sudden or life threatening deterioration of the patient's neurologic, endocrinologic system(s) required my full and direct attention, intervention and personal management. The critical care time is as shown. This time is in addition to time spent performing any reported procedures but includes the following: [x] Data and vital sign review and interpretation [x] Patient assessment, examination and intervention [x] Documentation [x] Medication orders and management Critical Care Time (min): 35 Coding Level of Care Code Acute Code for [facility] Fwd Diagnoses Acute hyponatremia E87.1 Acute on chronic pancreatitis K85.90; K86.1 Acute alcohol intoxication F10.929 Thrombocytopenia D69.6 Hypertension I10 Anxiety and depression F41.9; F32.A
[2023-06-10] MEDS: sodium chloride 0.9% 1,000 ML 999 ML IV (13:01)
[2023-06-10 13:18] LABS: Alcohol Level 355 mg/dL (0-10)
[2023-06-10] MEDS: sodium chloride 0.9% 1,000 ML 150 ML IV ×2 (14:36→22:02)
[2023-06-10] MEDS: HYDROmorphone 1 mg/mL INJ 1 mL 0.5 MG IVP ×2 (15:02→19:08)
[2023-06-10 16:35] LABS: Alanine Aminotransferase 159 U/L (0-41); Albumin Level 4.1 g/dL (3.5-5.2); Alkaline Phosphatase 120 U/L (40-130); Anion Gap 26.5 (5-19); Aspartate Amino Transferase 233 U/L (0-40); Blood Urea Nitrogen 8 mg/dL (6-20); Calcium 7.7 mg/dL (8.5-10.5); Carbon Dioxide 17 mmol/L (22-29); Chloride 81 mmol/L (98-107); Globulin 2.2 g/dL (1.3-4.6); Glomerular Filtration Rate 247.7 mL/min (90-130); Glucose 84 mg/dL (65-115); Osmolality Calculated 250 mOsm/kg (285-295); Potassium 3.5 mmol/L (3.5-5.1); Sodium 121 mmol/L (136-145); Total Bilirubin 3.5 mg/dL (0.15-1.2); Total Protein 6.3 g/dL (6.6-8.7)
[2023-06-10] MEDS: ondansetron 2 mg/ML SDV 2 mL 4 MG IVP (19:01)
[2023-06-10] MEDS: prochlorperazine 10 mg/2 mL Inj IVP (20:46)
[2023-06-10] MEDS: LORazepam 2 mg/mL INJ 1 mL IVP (20:57)
--- NOTE | 2023-06-10 21:11 | PC.NURSE ---
Nausea/Vomiting Patient vomiting gastric content despite zofran administration with a heart rate intermittently increasing into the 140s while heaving. Patient asking for another dose of zofran, he stated that he takes multiple tablets every couple hours. Home medication list states zofran is ordered [address] Alex contacted; order received for 10 mg compazine IVP Q4HR PRN for nausea/vomiting. Education provided to patient regarding home medication. Patient verbalized understanding.
[2023-06-10 21:33] LABS: Add Urine Microscopic? YES; Bilirubin Urine Neg (Negative); Blood Urine Neg (Negative); Glucose Urine UA Norm (Normal); Ketones Urine 3+ (Negative); Leukocyte Esterase Urine Negative (Negative); Nitrate Urine Negative (Negative); Protein Urine Trace (Negative); Urine Appearance Clear (CLEAR); Urine Color Amber (Yellow); Urobilinogen Urine 1 mg/dL (Negative); pH Urine 6 (5-7)
[2023-06-10 21:34] LABS: Add Urine Culture? No; Amorphous Sediment Urine 1+ /hpf; Mucus Urine 2+ /hpf; RBC Urine 0-4 /hpf (0-2); Squamous Epithelial Cell Urine 0-4 /hpf (0-5)
[2023-06-10 23:26] LABS: Glucose Point of Care 74 mg/dL (70-110)
[2023-06-10] MEDS: dextrose 5% 1,000 ML 75 ML IV (23:32)
[2023-06-10 23:45] LABS: Anion Gap 24.4 (5-19); Blood Urea Nitrogen 8 mg/dL (6-20); Calcium 7.7 mg/dL (8.5-10.5); Carbon Dioxide 16 mmol/L (22-29); Chloride 84 mmol/L (98-107); Glomerular Filtration Rate 247.7 mL/min (90-130); Glucose 71 mg/dL (65-115); Phosphorus 1.8 mg/dL (2.5-4.5); Potassium 3.4 mmol/L (3.5-5.1); Sodium 121 mmol/L (136-145)
[2023-06-11] VITALS (63 sets, daily range): BP systolic 132–172; BP diastolic 83–107; PULSE 80–128; RESP 11–26; TEMP 37–37.1; O2SAT 92–99; BMI 27.3
--- NOTE | 2023-06-11 | PC.NURSE ---
Blood sugar Patient's blood sugar 74 which is decreased from previous check which was 84 at 1600. Patient remains NPO. Dr. Alex contacted; orders received to initiate D5W maintenance fluid at 75 ml/hr as well as to decrease NS maintenance fluid from 150 to 75 mls/hr. See MAR for details.
[2023-06-11 00:16] LABS: Glucose Point of Care 79 mg/dL (70-110)
[2023-06-11] MEDS: HYDROmorphone 1 mg/mL INJ 1 mL 0.5 MG IVP ×2 (01:13→06:09)
[2023-06-11] MEDS: pantoprazole 40 mg SDV IVP ×2 (01:13→13:18)
[2023-06-11] MEDS: ondansetron 2 mg/ML SDV 2 mL 4 MG IVP ×3 (03:10→23:50)
[2023-06-11 03:11] LABS: Glucose Point of Care 76 mg/dL (70-110)
--- NOTE | 2023-06-11 03:30 | PC.NURSE ---
Pain Patient complaining of pain in his abdomen at a 9 on a 1-10 numerical scale. Dilaudid administered at 0113. CIWA scale assessed at a 4. Dr. Alex contacted regarding pain. Orders received to keep ativan orders for etoh withdrawal and order an additional 0.5 mg ativan IVP Q6H for anxiety. See MAR for details.
[2023-06-11 04:41] LABS: Glucose Point of Care 76 mg/dL (70-110)
[2023-06-11] MEDS: LORazepam 2 mg/mL INJ 1 mL 0.5 MG IVP ×2 (04:43→23:32)
[2023-06-11 04:44] LABS: Basophils % 0.3 %; Hematocrit 33.3 % (37-53); Lymphocytes # 0.8 10^3/uL (0.8-4.8); Lymphocytes % 20.8 %; Mean Corpuscular HGB Conc 34.5 g/dL (30-55); Mean Corpuscular Hemoglobin 33.5 pg (27-33); Mean Corpuscular Volume 97.1 fl (82-101); Mean Platelet Volume 10.6 fL (7.4-10.4); Monocytes # 0.5 10^3/uL (0.2-0.9); Monocytes % 13.9 %; Neutrophils # 2.51 10^3/uL (1.8-7.7); Neutrophils % 64.5 %; Nucleated Red Blood Cells % 0 %; Platelet Count 66 10^3/cmm (157-399); Red Blood Count 3.43 10^6/uL (3.85-5.65); Red Cell Distribution Width 11.9 % (12.1-15.1); White Blood Count 3.89 10^3/uL (3.29-11.43)
[2023-06-11 05:18] LABS: Alanine Aminotransferase 156 U/L (0-41); Albumin Level 3.9 g/dL (3.5-5.2); Alkaline Phosphatase 121 U/L (40-130); Aspartate Amino Transferase 217 U/L (0-40); Blood Urea Nitrogen 7 mg/dL (6-20); Calcium 7.8 mg/dL (8.5-10.5); Carbon Dioxide 15 mmol/L (22-29); Chloride 84 mmol/L (98-107); Globulin 2.3 g/dL (1.3-4.6); Glomerular Filtration Rate 191.5 mL/min (90-130); Glucose 76 mg/dL (65-115); Magnesium 2.1 mg/dL (1.7-2.3); Osmolality Calculated 255 mOsm/kg (285-295); Phosphorus 1.3 mg/dL (2.5-4.5); Sodium 124 mmol/L (136-145); Total Bilirubin 3.7 mg/dL (0.15-1.2); Total Protein 6.2 g/dL (6.6-8.7)
[2023-06-11 05:20] LABS: Anion Gap 28.2 (5-19); Potassium 3.2 mmol/L (3.5-5.1)
[2023-06-11] MEDS: potassium phosphate (mEq K) 40 MEQ in sodium chloride 0.9% (100 ml) 100 ML 27.27 MEQ IV (06:30)
--- NOTE | 2023-06-11 06:36 | PC.NURSE ---
Potassium/Phosphate Patient's potassium level 3.2 with a phosphorous level of 1.3. Dr. Alex notified; order received for 40 meq potassium phosphate IV once. See MAR for details.
[2023-06-11 06:55] LABS: Glucose Point of Care 85 mg/dL (70-110)
[2023-06-11] MEDS: sodium chloride 0.9% 1,000 ML 75 ML IV (09:45)
[2023-06-11] MEDS: multivitamin therapeutic Tablet 1 TAB PO (09:46)
[2023-06-11] MEDS: folic acid 1 mg Tablet PO (09:46)
[2023-06-11] MEDS: thiamine 100 mg Tablet PO (09:46)
[2023-06-11] MEDS: HYDROmorphone 1 mg/mL INJ 1 mL IVP ×3 (09:47→20:36)
[2023-06-11] MEDS: dextrose 5% 1,000 ML 75 ML IV (13:18)
--- NOTE | 2023-06-11 17:10 | P.PN_ITS ---
Subjective Subjective: Patient reports ongoing severe epigastric pain. Rates 9 out of 10. Radiation to the back. Reports the hydromorphone helps but not lasting long enough at current dosing. Discussed trial of clear liquids today and patient is agreeable. Denies fevers, chills, or chest pain. Medications: Reviewed: Yes Vitals/I&O/Wt Last Vital Signs Temp 98.8 F 06/11/23 04:15 Pulse 95 06/11/23 14:00 Resp 20 H 06/11/23 16:31 BP 152/83 06/11/23 14:00 Pulse Ox 96 06/11/23 16:31 O2 Del Method Room Air 06/11/23 14:00 06/11/23 06/11/23 06/11/23 06:59 14:59 22:59 Intake Total 207.5 / 2207.5 1883.5106 / 1883.5106 Output Total 1000 / 1740 350 / 350 Balance -792.5 / 467.5 1533.5106 / 1533.5106 Weight last 48 hrs Weight 91.49 kg Weight 90.718 kg Physical Exam Narrative: General: Patient is awake. In less distress than yesterday. Still ill appearing. Head: Normocephalic. Atraumatic. EOM intact. Neck: No JVD. Cardiovascular: Regular rate. Regular rhythm. Hypertensive. No gallops. No murmurs. Lungs: Breath sounds are diminished bilateral bases, no use of accessory muscles, no crackles or wheezes. Skin: No rashes. Bruises present. Abdomen: Normal bowel sounds, abdomen soft and nontender. Extremities: No cyanosis or clubbing. Musculoskeletal: No erythematous joints. Neurological: Moves all 4 extremities. No myoclonus. Data 06/11/23 04:29 06/11/23 04:29 A&P Assessment and plan (1) Acute hyponatremia: Hyponatremia is improving Continue IV fluids Trending renal panel (2) Acute on chronic pancreatitis: Acute on chronic alcohol induced pancreatitis Associated with transaminitis, hyperbilirubinemia Continue IV fluids Advance to clear liquid diet Continue IV analgesics May start oral analgesics pending response to diet Antiemetics as needed Monitoring electrolytes (3) Acute alcohol intoxication: Would benefit from cessation [facility] protocol Thiamine, folic acid, vitamin Case management consultation (4) Thrombocytopenia: Secondary to alcohol use, worsening Continue to monitor, no evidence of bleeding (5) Hypertension: Blood pressure still elevated Hydralazine as needed (6) Anxiety and depression: Still lots of anxiety, stress related symptoms He may benefit from NPU treatment after he improves medically Plan DVT prophylaxis: SCD CODE STATUS: Full code Attestations Medical Necessity Statement*: Patient requires ongoing hospitalization for IV fluids, IV antiemetics, IV analgesics, and supportive care. Coding Level of Care Code Acute Code for [facility] Diagnoses Acute hyponatremia E87.1 Acute on chronic pancreatitis K85.90; K86.1 Acute alcohol intoxication F10.929 Thrombocytopenia D69.6 Hypertension I10 Anxiety and depression F41.9; F32.A
[2023-06-11 19:20] LABS: Glucose Point of Care 112 mg/dL (70-110)
--- NOTE | 2023-06-11 21:19 | PC.NURSE ---
Anxiety Patient mildly anxious asking for when he can have pain medication and asking for hydralazine for high blood pressure. Education provided on hydralazine and blood pressure parameters for medication administration as well as timing and dosage of dilaudid. Patient verbalized understanding. Following education, patient transferred to bedside commode. A few minutes later, patient stated he couldn't pee because he got a random erection. Patient then proceeded to ask about this nurse's age, stating that this nurse looked about 10 years younger than him. After redirecting conversation to patient care, patient then stated he was in pain at a 9 on a 1-10 numerical scale. Dilaudid administered per MAR. While administering medication, patient asked Is it all the way in yet? Some nurses push it really fast and it makes me feel really good. Education provided on dilaudid side effects and safe administration of medication.
[2023-06-12] VITALS (48 sets, daily range): BP systolic 131–170; BP diastolic 86–114; PULSE 77–118; RESP 11–25; TEMP 36.3–36.9; O2SAT 93–100; BMI 27.1
[2023-06-12] MEDS: sodium chloride 0.9% 1,000 ML 75 ML IV (00:31)
[2023-06-12] MEDS: HYDROmorphone 1 mg/mL INJ 1 mL IVP ×3 (00:35→08:29)
--- NOTE | 2023-06-12 01:00 | PC.NURSE ---
U/O At 0030, patient states he is still unable to urinate despite multiple attempts and positions. He states that his bladder feels full but that he is just unable to go. On evening of 06/10, patient stated the same thing then was able to urinate soon after on a bedside commode. Dr. Alex notified of lack of urine output; order received to monitor for another couple of hours and notify her if still unable to urinate.
[2023-06-12] MEDS: hyDRALAzine 20 mg/mL INJ 1 mL 10 MG IVP (02:01)
[2023-06-12] MEDS: pantoprazole 40 mg SDV IVP ×2 (02:01→13:06)
[2023-06-12] MEDS: dextrose 5% 1,000 ML 75 ML IV (03:12)
[2023-06-12] MEDS: prochlorperazine 10 mg/2 mL Inj IVP (04:11)
[2023-06-12 04:23] LABS: Basophils % 0.3 %; Eosinophils % 0.3 %; Hematocrit 34.7 % (37-53); Lymphocytes # 0.6 10^3/uL (0.8-4.8); Mean Corpuscular HGB Conc 35.7 g/dL (30-55); Mean Corpuscular Hemoglobin 34.6 pg (27-33); Mean Corpuscular Volume 96.9 fl (82-101); Mean Platelet Volume 10.5 fL (7.4-10.4); Monocytes # 0.4 10^3/uL (0.2-0.9); Monocytes % 11.5 %; Neutrophils # 2.18 10^3/uL (1.8-7.7); Nucleated Red Blood Cells % 0 %; Platelet Count 73 10^3/cmm (157-399); Red Blood Count 3.58 10^6/uL (3.85-5.65); Red Cell Distribution Width 11.8 % (12.1-15.1); White Blood Count 3.21 10^3/uL (3.29-11.43)
[2023-06-12 04:40] LABS: Alanine Aminotransferase 159 U/L (0-41); Albumin Level 3.9 g/dL (3.5-5.2); Alkaline Phosphatase 132 U/L (40-130); Aspartate Amino Transferase 205 U/L (0-40); Blood Urea Nitrogen 3 mg/dL (6-20); Calcium 8.6 mg/dL (8.5-10.5); Carbon Dioxide 24 mmol/L (22-29); Chloride 88 mmol/L (98-107); Globulin 2.6 g/dL (1.3-4.6); Glomerular Filtration Rate 191.5 mL/min (90-130); Glucose 108 mg/dL (65-115); Osmolality Calculated 265 mOsm/kg (285-295); Sodium 129 mmol/L (136-145); Total Bilirubin 4.3 mg/dL (0.15-1.2); Total Protein 6.5 g/dL (6.6-8.7)
[2023-06-12 05:06] LABS: Anion Gap 19.8 (5-19); Phosphorus 0.9 mg/dL (2.5-4.5); Potassium 2.8 mmol/L (3.5-5.1)
--- NOTE | 2023-06-12 05:35 | PC.NURSE ---
Critical Labs Dr. Alex notified of the following critical lab values: potassium 2.8 and phosphorous 0.9. Orders received for 40 meq potassium chloride IV with 5ml lidocaine once, 40 meq PO KCL liquid once now and again once the IV dose is completed. Additional order received for 250 mg phosphorous PO TID.
[2023-06-12] MEDS: potassium chloride oral liq 20 mEq/15 mL UDC 40 MEQ PO ×2 (05:53→08:28)
[2023-06-12] MEDS: lidocaine 1% 5 ML in potassium chloride premix 100 ML 26.25 ML IV (05:53)
[2023-06-12] MEDS: LORazepam 2 mg/mL INJ 1 mL 0.5 MG IVP (05:57)
[2023-06-12] MEDS: ondansetron 2 mg/ML SDV 2 mL 4 MG IVP ×3 (06:13→19:39)
[2023-06-12] MEDS: thiamine 100 mg Tablet PO (08:27)
[2023-06-12] MEDS: multivitamin therapeutic Tablet 1 TAB PO (08:27)
[2023-06-12] MEDS: phosphorus 250 mg Tablet PO ×3 (08:28→20:33)
[2023-06-12] MEDS: folic acid 1 mg Tablet PO (08:28)
[2023-06-12] MEDS: sodium chlor 0.9% + KCl 40 mEq 40 MEQ/1,000 ML BAG 75 MEQ IV (12:32)
[2023-06-12] MEDS: cloNIDine 0.1 mg/24 hr Patch 1 PATCH TRANSDERMA (12:33)
[2023-06-12] MEDS: potassium phosphate (mEq K) 40 MEQ in sodium chloride 0.9% (100 ml) 100 ML 27.27 MEQ IV (12:33)
[2023-06-12] MEDS: HYDROmorphone 1 mg/mL INJ 1 mL 0.5 MG IVP ×3 (12:33→20:33)
[2023-06-12] MEDS: metoprolol tartrate 1 mg/1 mL SDV 5 mL 5 MG IVP ×2 (13:05→19:17)
--- NOTE | 2023-06-12 15:44 | P.PN_ITS ---
Subjective Subjective: Hospital course, labs appreciated. On examination patient laying in bed with caregiver at bedside. Patient is complaining of pain in the epigastric area along with nausea and episode of vomiting with liquid diet in the morning. Patient states pain is around 9/10. Denies any chills, chest pain, difficulty in breathing. States Dilaudid works better and wondering if dose can be increased. We discussed unfortunately with pancreatitis he will be in pain and pain level of 5?6/10 should be acceptable as given high pain medication can cause him to be more sedated which we are trying to avoid. Also discussed most likely cause of his recurrent pancreatitis is chronic alcohol abuse and discussed about alcohol cessation. Patient is reluctantly agreeable and would want to have further resources provided to him. Medications: Reviewed: Yes Vitals/I&O/Wt Last Vital Signs Temp 98.0 F 06/12/23 14:00 Pulse 99 06/12/23 14:00 Resp 20 H 06/12/23 14:00 BP 149/95 06/12/23 14:00 Pulse Ox 98 06/12/23 14:00 O2 Del Method Room Air 06/12/23 14:00 06/12/23 06/12/23 06/12/23 06:59 14:59 22:59 Intake Total 2180 / 4303.5106 2455 / 2455 206.25 / 2661.25 Output Total 1575 / 3225 Balance 605 / 1078.5106 2455 / 2455 206.25 / 2661.25 Weight last 48 hrs Weight 90.582 kg Weight 91.49 kg Physical Exam Narrative: General: Patient is awake. Distress because of pain, ill-appearing Head: Normocephalic. Atraumatic. EOM intact. Neck: No JVD. Cardiovascular: Regular rate. Regular rhythm. Hypertensive. No gallops. No murmurs. Lungs: Breath sounds are diminished bilateral bases, no use of accessory muscles, no crackles or wheezes. Skin: No rashes. Bruises present. Abdomen: Normal bowel sounds, abdomen soft and nontender. Extremities: No cyanosis or clubbing. Musculoskeletal: No erythematous joints. Neurological: Moves all 4 extremities. No myoclonus. Data 06/12/23 04:05 06/12/23 04:05 A&P Assessment and plan (1) Acute hyponatremia: Acute on chronic. Most likely secondary to chronic alcohol abuse. Hyponatremia is improving Continue IV fluids Check BMP daily for now. (2) Hypokalemia: Potassium 2.8 today. Persistently low most likely in setting of alcohol abuse along with vomiting. Add potassium to IV fluids. Already repleted potassium early in the morning. Recheck BMP in evening. (3) Acute on chronic pancreatitis: Acute on chronic alcohol induced pancreatitis associated with transaminitis, hyperbilirubinemia Continue IV fluids as above. Switch back from clear liquid diet to n.p.o. with ice chips and meds. Protonix twice daily, Zofran as needed. Monitor electrolytes. Will retry advancing diet tomorrow. Pain medication with Dilaudid 0.5 every 4 hourly as needed (4) Acute alcohol intoxication: Would benefit from cessation [facility] protocol Hold off on oral thiamine, folic acid, vitamin Case management consultation. (5) Thrombocytopenia: Secondary to alcohol use, worsening Continue to monitor, no evidence of bleeding (6) Hypertension: Uncontrolled. Takes multiple medications at home including clonidine 0.1 twice daily, lisinopril 40 mg daily, metoprolol 100 mg twice daily. Add clonidine 0.1 patch and start on metoprolol 5 mg IV 6 hours. Monitor vitals including heart rate and blood pressures. (7) Anxiety and depression: Still lots of anxiety, stress related symptoms which could be in combination with alcohol withdrawal along with social stressors. Will benefit from behavioral health clinic referral on discharge. We will continue to monitor. Continue trazodone home dose as needed along with mirtazapine for now. Plan Continue to monitor electrolytes. DVT prophylaxis: SCD, heparin 5000 every 12 hourly. CODE STATUS: Full code N.p.o. Discussed in detail with the patient as above about need for alcohol cessation to decrease his frequency of pancreatitis. Discussed in detail about pain medications and expectations. Patient for now verbalized understanding. Transfer out of ICU. Attestations Medical Necessity Statement*: Requires further hospitalization for management of acute alcoholic pancreatitis, hyponatremia with hypokalemia, alcohol intoxication with anxiety Diagnoses Acute hyponatremia E87.1 Hypokalemia E87.6 Acute on chronic pancreatitis K85.90; K86.1 Acute alcohol intoxication F10.929 Thrombocytopenia D69.6 Hypertension I10 Anxiety and depression F41.9; F32.A
[2023-06-12] MEDS: mirtazapine 15 mg Tablet PO (20:33)
[2023-06-12 20:43] LABS: Anion Gap 17.3 (5-19); Blood Urea Nitrogen 2 mg/dL (6-20); Calcium 8.4 mg/dL (8.5-10.5); Carbon Dioxide 25 mmol/L (22-29); Chloride 94 mmol/L (98-107); Glomerular Filtration Rate 247.7 mL/min (90-130); Glucose 92 mg/dL (65-115); Osmolality Calculated 272 mOsm/kg (285-295); Potassium 3.3 mmol/L (3.5-5.1); Sodium 133 mmol/L (136-145)
[2023-06-12 21:48] LABS: Glucose Point of Care 116 mg/dL (70-110)
[2023-06-12 21:48] LABS: Glucose Point of Care 101 mg/dL (70-110)
[2023-06-13] VITALS (7 sets, daily range): BP systolic 133–158; BP diastolic 80–118; PULSE 74–89; RESP 18–20; TEMP 36.4–37.3; O2SAT 97–100
[2023-06-13] MEDS: pantoprazole 40 mg SDV IVP ×2 (01:32→13:32)
[2023-06-13] MEDS: metoprolol tartrate 1 mg/1 mL SDV 5 mL 5 MG IVP ×2 (01:32→06:06)
[2023-06-13] MEDS: HYDROmorphone 1 mg/mL INJ 1 mL 0.5 MG IVP ×3 (03:19→19:14)
[2023-06-13 05:08] LABS: Basophils % 0.8 %; Eosinophils % 1.3 %; Lymphocytes # 0.8 10^3/uL (0.8-4.8); Lymphocytes % 34.6 %; Mean Corpuscular HGB Conc 35.5 g/dL (30-55); Mean Corpuscular Hemoglobin 34.5 pg (27-33); Mean Corpuscular Volume 97.3 fl (82-101); Mean Platelet Volume 10.9 fL (7.4-10.4); Monocytes # 0.4 10^3/uL (0.2-0.9); Monocytes % 14.6 %; Neutrophils # 1.15 10^3/uL (1.8-7.7); Neutrophils % 47.9 %; Nucleated Red Blood Cells % 0 %; Platelet Count 79 10^3/cmm (157-399); Red Blood Count 3.39 10^6/uL (3.85-5.65); Red Cell Distribution Width 11.9 % (12.1-15.1)
[2023-06-13 05:29] LABS: Magnesium 1.8 mg/dL (1.7-2.3); Phosphorus 2.4 mg/dL (2.5-4.5)
[2023-06-13 05:30] LABS: Alanine Aminotransferase 165 U/L (0-41); Albumin Level 3.8 g/dL (3.5-5.2); Alkaline Phosphatase 120 U/L (40-130); Anion Gap 15.4 (5-19); Aspartate Amino Transferase 209 U/L (0-40); Blood Urea Nitrogen 3 mg/dL (6-20); Calcium 8.7 mg/dL (8.5-10.5); Carbon Dioxide 27 mmol/L (22-29); Chloride 96 mmol/L (98-107); Globulin 2.3 g/dL (1.3-4.6); Glomerular Filtration Rate 247.7 mL/min (90-130); Glucose 81 mg/dL (65-115); Osmolality Calculated 276 mOsm/kg (285-295); Potassium 3.4 mmol/L (3.5-5.1); Sodium 135 mmol/L (136-145); Total Bilirubin 3.5 mg/dL (0.15-1.2); Total Protein 6.1 g/dL (6.6-8.7)
[2023-06-13] MEDS: ondansetron 2 mg/ML SDV 2 mL 4 MG IVP (06:06)
[2023-06-13] MEDS: phosphorus 250 mg Tablet PO ×3 (08:35→20:36)
[2023-06-13] MEDS: sodium chlor 0.9% + KCl 40 mEq 40 MEQ/1,000 ML BAG 75 MEQ IV (08:35)
[2023-06-13] MEDS: LORazepam 2 mg Tablet PO (13:22)
--- NOTE | 2023-06-13 16:31 | P.PN_ITS ---
Subjective Subjective: No acute events overnight. Patient states he is feeling better. Today morning seen on [facility]. Denies any nausea vomiting today. States pain is the same. Tolerated clear liquid diet today morning without nausea or vomiting. Spouse at bedside. Has remained hemodynamically stable and afebrile. Blood work appreciated for mild leukopenia down to 2.4, stable hemoglobin, thrombocytopenia though stable, BMP showing improvement in sodium up to 135, improvement in potassium to 3.4, stable creatinine, persistent transaminitis, improvement in phosphorus levels Medications: Reviewed: Yes Vitals/I&O/Wt Last Vital Signs Temp 97.5 F L 06/13/23 11:38 Pulse 87 06/13/23 11:38 Resp 18 06/13/23 11:38 BP 133/92 06/13/23 11:38 Pulse Ox 97 06/13/23 11:38 O2 Del Method Room Air 06/13/23 11:38 06/13/23 06/13/23 06/13/23 06:59 14:59 22:59 Intake Total 793.75 / 3563.5106 480 / 480 Balance 793.75 / 3563.5106 480 / 480 Weight last 48 hrs Weight 89.811 kg Weight 90.582 kg Physical Exam Narrative: General: Patient is awake. Distress because of pain, ill-appearing Head: Normocephalic. Atraumatic. EOM intact. Neck: No JVD. Cardiovascular: Regular rate. Regular rhythm. Hypertensive. No gallops. No murmurs. Lungs: Breath sounds are diminished bilateral bases, no use of accessory muscles, no crackles or wheezes. Skin: No rashes. Bruises present. Abdomen: Normal bowel sounds, abdomen soft and nontender. Extremities: No cyanosis or clubbing. Musculoskeletal: No erythematous joints. Neurological: Moves all 4 extremities. No myoclonus. Data 06/13/23 04:24 06/13/23 04:24 A&P Assessment and plan (1) Acute hyponatremia: Acute on chronic. Most likely secondary to chronic alcohol abuse. Hyponatremia is improving and almost back to baseline. Continue IV fluids for now as patient's oral intake is still low Check BMP daily for now. (2) Hypokalemia: Resolving. Continue with 40 mEq potassium to IV fluids. Recheck BMP daily for now. (3) Acute on chronic pancreatitis: Acute on chronic alcohol induced pancreatitis associated with transaminitis, hyperbilirubinemia Continue IV fluids as above. Trial of clear liquid diet today. Will advance very gradually to full liquid depending on how patient tolerates. Protonix twice daily, Zofran as needed. Monitor electrolytes. Will retry advancing diet tomorrow. Change frequency of pain medication with Dilaudid to 0.5 mg every 6 hourly as needed (4) Acute alcohol intoxication: Would benefit from cessation [facility] protocol Hold off on oral thiamine, folic acid, vitamin Case management consultation. (5) Thrombocytopenia: Secondary to alcohol use, worsening Continue to monitor, no evidence of bleeding (6) Hypertension: Blood pressure is better controlled. Takes multiple medications at home including clonidine 0.1 twice daily, lisinopril 40 mg daily, metoprolol 100 mg twice daily. For now continue with clonidine 0.1 patch. Change metoprolol to 2.5 mg IV 6 hours. Monitor vitals including heart rate and blood pressures. (7) Anxiety and depression: Still lots of anxiety, stress related symptoms which could be in combination w ith alcohol withdrawal along with social stressors. Will benefit from behavioral health clinic referral on discharge. We will continue to monitor. Continue trazodone home dose as needed along with mirtazapine for now. Plan Continue to monitor electrolytes. DVT prophylaxis: SCD, heparin 5000 every 12 hourly. CODE STATUS: Full code Clear liquid diet Discussed in detail with the patient as above about need for alcohol cessation to decrease his frequency of pancreatitis. Discussed in detail about pain medications and expectations. Patient for now verbalized understanding Discharge planning: Plan to discharge the next 24 to 48 hours depending on tolerance of oral diet in setting of alcohol induced pancreatitis. Patient would benefit from referral to pain management and [facility]. Patient is agreeable. Does not want to pursue [place] through hospital for now. Would want to pursue by himself. Attestations Medical Necessity Statement*: Requires further hospitalization for management of acute alcoholic pancreatitis, improving hyponatremia, hypokalemia while trial of oral diet is done Diagnoses Acute hyponatremia E87.1 Hypokalemia E87.6 Acute on chronic pancreatitis K85.90; K86.1 Acute alcohol intoxication F10.929 Thrombocytopenia D69.6 Hypertension I10 Anxiety and depression F41.9; F32.A
[2023-06-13] MEDS: metoprolol tartrate 1 mg/1 mL SDV 5 mL 2.5 MG IVP (17:23)
[2023-06-13] MEDS: mirtazapine 15 mg Tablet PO (20:36)
[2023-06-14] VITALS: BP 150/76; PULSE 88; RESP 18; TEMP 36.4; O2SAT 99
[2023-06-14] MEDS: metoprolol tartrate 1 mg/1 mL SDV 5 mL 2.5 MG IVP ×2 (00:43→06:15)
[2023-06-14] MEDS: pantoprazole 40 mg SDV IVP (00:43)
[2023-06-14] MEDS: HYDROmorphone 1 mg/mL INJ 1 mL 0.5 MG IVP ×2 (01:59→10:31)
[2023-06-14 04:08] VITALS: BP 140/80; PULSE 82; RESP 18; TEMP 36.6; O2SAT 97
[2023-06-14 06:06] LABS: Basophils % 1.3 %; Eosinophils # 0.1 10^3/uL (0.0-0.8); Eosinophils % 1.6 %; Hematocrit 35.9 % (37-53); Lymphocytes # 1.3 10^3/uL (0.8-4.8); Lymphocytes % 42.4 %; Mean Corpuscular HGB Conc 34.5 g/dL (30-55); Mean Corpuscular Hemoglobin 34.3 pg (27-33); Mean Corpuscular Volume 99.2 fl (82-101); Mean Platelet Volume 10.7 fL (7.4-10.4); Monocytes # 0.5 10^3/uL (0.2-0.9); Monocytes % 14.2 %; Neutrophils # 1.26 10^3/uL (1.8-7.7); Neutrophils % 39.9 %; Nucleated Red Blood Cells % 0 %; Platelet Count 90 10^3/cmm (157-399); Red Blood Count 3.62 10^6/uL (3.85-5.65); Red Cell Distribution Width 12.2 % (12.1-15.1); White Blood Count 3.16 10^3/uL (3.29-11.43)
[2023-06-14 06:22] LABS: Magnesium 1.7 mg/dL (1.7-2.3); Phosphorus 2.6 mg/dL (2.5-4.5)
[2023-06-14] MEDS: ondansetron 2 mg/ML SDV 2 mL 4 MG IVP (06:33)
[2023-06-14 06:39] LABS: Alanine Aminotransferase 204 U/L (0-41); Albumin Level 3.9 g/dL (3.5-5.2); Alkaline Phosphatase 132 U/L (40-130); Aspartate Amino Transferase 238 U/L (0-40); Blood Urea Nitrogen 3 mg/dL (6-20); Calcium 8.9 mg/dL (8.5-10.5); Carbon Dioxide 24 mmol/L (22-29); Chloride 100 mmol/L (98-107); Globulin 2.2 g/dL (1.3-4.6); Glomerular Filtration Rate 247.7 mL/min (90-130); Glucose 78 mg/dL (65-115); Osmolality Calculated 277 mOsm/kg (285-295); Sodium 136 mmol/L (136-145); Total Bilirubin 3.5 mg/dL (0.15-1.2); Total Protein 6.1 g/dL (6.6-8.7)
[2023-06-14 06:40] LABS: Anion Gap 16.2 (5-19); Potassium 4.2 mmol/L (3.5-5.1)
[2023-06-14 07:08] VITALS: BP 126/88; PULSE 82; RESP 18; TEMP 36.4; O2SAT 98
[2023-06-14] MEDS: phosphorus 250 mg Tablet PO (08:53)
--- NOTE | 2023-06-14 10:07 | PM.DCS ---
Discharge Providers Date of Admission: 06/10/23 13:53 Date of Discharge: June 14, 2023 Attending Provider at Admission: Compa Galicia MD Attending Provider at Discharge: Tony Reagan MD Primary Care Provider: Antonio Alvarado MD Diagnoses at Discharge Discharge Diagnosis (1) Acute hyponatremia: Status: Acute (2) Hypokalemia: Status: Acute (3) Acute on chronic pancreatitis: Status: Acute (4) Acute alcohol intoxication: Status: Acute (5) Thrombocytopenia: Status: Acute (6) Hypertension: Status: Acute (7) Anxiety and depression: Status: Acute Reason for Visit Reason for Visit: ABD PAIN Brief History: History as per HPI: Buddy Cowan is a 33 year old male with a past medical history significant for chronic pancreatitis, posttraumatic stress disorder, alcohol use disorder with abuse, anxiety, depression, GERD, hyperlipidemia, and hypertension who presents to the emergency department with nausea, vomiting, and abdominal pain.? Unable to tolerate oral intake.? Describes location of pain as epigastric.? Reports symptoms are severe.? Reports pain 10 out of 10.? Reports morphine helped but only for about 20 minutes. Patient has a history of alcohol use disorder.? Reports he has been drinking for the past several days after he is relapsed.? He attributes his relapse to multiple recent life stressors.? He has tried various outpatient treatment methods previously for alcoholism but has found the available treatment options to be limited or even unavailable. Hospital Course Hospital Course Patient was admitted to the ICU for further evaluation and management of acute on chronic hyponatremia, acute on chronic pancreatitis and acute alcoholic intoxication. He was started on treatment with IV hydration. During hospitalization he was also found to have multiple other electrode abnormalities including hypokalemia, hypomagnesemia which were treated with repletion. He was treated conservatively for pancreatitis with hydration, n.p.o. status and pain management. His diet was gradually advanced. Hospitalization was complicated by multiple episodes of nausea and vomiting on trial of diet. Eventually with fluids his sodium levels improved and patient's oral intake was improved. He is able to maintain oral intake for more than 24 hours now. He has been discharged in hemodynamically stable condition with advised to follow-up with [facility], pain management team. He was advised in detail about alcohol abstinence. Patient verbalized understanding states he wants to follow-up and set up alcohol withdrawal rehab program by himself. Resources for the same were provided to the patient. He is to continue taking liquid diet for next 1 week and advance gradually to a regular diet within the next 2 weeks. He is to take multiple small meals. Physical Exam Narrative: General: Patient is awake. Distress because of pain, ill-appearing Head: Normocephalic. Atraumatic. EOM intact. Neck: No JVD. Cardiovascular: Regular rate. Regular rhythm. Hypertensive. No gallops. No murmurs. Lungs: Breath sounds are diminished bilateral bases, no use of accessory muscles, no crackles or wheezes. Skin: No rashes. Bruises present. Abdomen: Normal bowel sounds, abdomen soft and nontender. Extremities: No cyanosis or clubbing. Musculoskeletal: No erythematous joints. Neurological: Moves all 4 extremities. No myoclonus. Discharge Data Studies Completed and Pending Completed Studies During Hospitalization Category Date Time Status XR KUB portable [id number] Stat Exams 06/10/23 12:22 Completed Pending at discharge Category Date Time Status MAG [Magnesium] AM LABS Lab 06/15/23 04:00 Ordered PHOS [Phosphorus] AM LABS Lab 06/15/23 04:00 Ordered Radiology Impressions KUB X-Ray 06/10/23 12:22 IMPRESSION: 1. Nonvisualization of metallic ring in keeping with interval passage. 2. Nonobstructive bowel gas pattern. Laboratory Results WBC 3.16 10^3/uL (3.29-11.43) L 06/14/23 05:57 RBC 3.62 10^6/uL (3.85-5.65) L 06/14/23 05:57 Hgb 12.40 g/dL (11.27-16.99) 06/14/23 05:57 Hct 35.9 % (37-53) L 06/14/23 05:57 MCV 99.2 fl (82-101) 06/14/23 05:57 MCH 34.3 pg (27-33) H 06/14/23 05:57 MCHC 34.5 g/dL (30-55) 06/14/23 05:57 RDW 12.2 % (12.1-15.1) 06/14/23 05:57 Plt Count 90 10^3/cmm (157-399) L 06/14/23 05:57 MPV 10.7 fL (7.4-10.4) H 06/14/23 05:57 Neut % (Auto) 39.9 % 06/14/23 05:57 Lymph % (Auto) 42.4 % 06/14/23 05:57 [place] % (Auto) 14.2 % 06/14/23 05:57 Eos % (Auto) 1.6 % 06/14/23 05:57 Baso % (Auto) 1.3 % 06/14/23 05:57 Neut # (Auto) 1.26 10^3/uL (1.8-7.7) L 06/14/23 05:57 Lymph # (Auto) 1.3 10^3/uL (0.8-4.8) 06/14/23 05:57 [place] # (Auto) 0.5 10^3/uL (0.2-0.9) 06/14/23 05:57 Eos # (Auto) 0.1 10^3/uL (0.0-0.8) 06/14/23 05:57 Baso # (Auto) 0.0 10^3/uL (0.0-0.1) 06/14/23 05:57 Nucleated RBC % (auto) 0 % 06/14/23 05:57 Nucleated RBCs # 0.0 /100WBC 06/14/23 05:57 Sodium 136 mmol/L (136-145) 06/14/23 05:57 Potassium 4.2 mmol/L (3.5-5.1) 06/14/23 05:57 Chloride 100 mmol/L (98-107) 06/14/23 05:57 Carbon Dioxide 24 mmol/L (22-29) 06/14/23 05:57 Anion Gap 16.2 (5-19) 06/14/23 05:57 BUN 3 mg/dL (6-20) L 06/14/23 05:57 Creatinine 0.4 mg/dL (0.7-1.2) L 06/14/23 05:57 GFR Calculation 247.7 mL/min (90-130) H 06/14/23 05:57 Glucose 78 mg/dL (65-115) 06/14/23 05:57 POC Glucose 101 mg/dL (70-110) 06/12/23 04:06 Calculated Osmolality 277 mOsm/kg (285-295) L 06/14/23 05:57 Calcium 8.9 mg/dL (8.5-10.5) 06/14/23 05:57 Phosphorus 2.6 mg/dL (2.5-4.5) 06/14/23 05:57 Magnesium 1.7 mg/dL (1.7-2.3) 06/14/23 05:57 Total Bilirubin 3.5 mg/dL (0.15-1.2) H 06/14/23 05:57 AST 238 U/L (0-40) H 06/14/23 05:57 ALT 204 U/L (0-41) H 06/14/23 05:57 Alkaline Phosphatase 132 U/L (40-130) H 06/14/23 05:57 Total Protein 6.1 g/dL (6.6-8.7) L 06/14/23 05:57 Albumin 3.9 g/dL (3.5-5.2) 06/14/23 05:57 Globulin 2.2 g/dL (1.3-4.6) 06/14/23 05:57 Lipase 207 U/L (13-60) H 06/10/23 11:20 Urine Color Marium (Yellow) 06/10/23 20:37 Urine Appearance Clear (CLEAR) 06/10/23 20:37 Urine pH 6 (5-7) 06/10/23 20:37 Ur Specific [place] 1.020 (1.005-1.030) 06/10/23 20:37 Urine Protein Trace (Negative) 06/10/23 20:37 Urine Glucose (UA) Norm (Normal) 06/10/23 20:37 Urine Ketones 3+ (Negative) H 06/10/23 20:37 Urine Blood Neg (Negative) 06/10/23 20:37 Urine Nitrate Negative (Negative) 06/10/23 20:37 Urine Bilirubin Neg (Negative) 06/10/23 20:37 Urine Urobilinogen 1 mg/dL (Negative) H 06/10/23 20:37 Ur Leukocyte Esterase Negative (Negative) 06/10/23 20:37 Urine RBC 0-4 /hpf (0-2) H 06/10/23 20:37 Urine WBC 10-15 /hpf (0-5) H 06/10/23 20:37 Ur Squamous Epith Cells 0-4 /hpf (0-5) H 06/10/23 20:37 Amorphous Sediment 1+ /hpf 06/10/23 20:37 Urine Bacteria None /hpf (NONE) 06/10/23 20:37 Urine Mucus 2+ /hpf 06/10/23 20:37 Ethyl Alcohol 355 mg/dL (0-10) H* 06/10/23 11:20 Vitals Last Vital Signs Temp 97.5 F L 06/14/23 07:08 Pulse 82 06/14/23 07:08 Resp 18 06/14/23 07:08 BP 126/88 06/14/23 07:08 Pulse Ox 98 06/14/23 07:08 O2 Del Method Room Air 06/14/23 07:08 Discharge Plan Discharge Patient Disposition: Home Condition: Stable Prescriptions: New Protonix 40 mg tablet,delayed release (DR/EC) 40 mg PO DAILY 28 Days Qty: 30 0RF tramadol 100 mg tablet 50 mg PO TID PRN (Reason: pain) Qty: 20 0RF hydrocodone-acetaminophen 5-300 mg tablet 1 tab PO BID PRN (Reason: pain) Qty: 10 0RF Continued resveratrol 250 mg capsule 250 - 500 mg PO DAILY PRN (Reason: Inflammation) trazodone 50 mg tablet 25 mg PO BEDTIME PRN (Reason: Sleep) Qty: 45 0RF mirtazapine 15 mg tablet 15 mg PO BEDTIME Qty: 30 0RF clonidine HCl 0.1 mg tablet 0.1 mg PO BID Qty: 60 0RF omeprazole 40 mg capsule,delayed release(DR/EC) 40 mg PO QAM Qty: 90 0RF magnesium hydroxide [Milk of Magnesia] 400 mg/5 mL Suspension 30 ml PO BID PRN (Reason: Constipation) vitamin B complex Tablet 1 tab PO DAILY PRN (Reason: UNKNOWN) potassium gluconate 595 mg (99 mg) Tablet 595 - 1,190 mg PO DAILY PRN (Reason: UNKNOWN) Super Enzyme [id number] mg Capsule 1 cap PO .UP TO TID PRN (Reason: UNKNOWN) Pancreatin 2000 1 cap PO .UP TO TID PRN (Reason: UNKNOWN) metoprolol tartrate 100 mg Tablet 100 mg PO BID metoclopramide HCl [Reglan] 10 mg tablet 10 mg PO Q6H PRN (Reason: nausea and vomiting) Qty: 30 0RF Nu-Salt See Rx Instructions .ROUTE .COMPLEX Rx Instructions: prn ondansetron 4 mg tablet,disintegrating 4 mg PO Q6H PRN (Reason: nausea and vomiting) Qty: 60 1RF Changed sucralfate 100 mg/mL suspension 10 ml PO TID Qty: 1000 0RF Held lisinopril 40 mg Tablet 40 mg PO QAM Hold Instructions: Resume on 06/28/23. Discontinued minocycline 100 mg capsule 100 mg PO BID PRN (Reason: FOLLICULITIS) Discharge Orders: Discharge Order (Routine); Ordered 06/14/23 Ordered By: Tony Reagan Referrals: [facility] [Staff Physician] - (WALK IN FOR APOINTMENT MONDAY THRU MONDAY) Antonio Alvarado MD [Primary Care Provider] - 06/16/23 3:15 pm Buddy Patel MD [Physician] - (We have notified your physician's clinic of the need for a follow-up appointment to be scheduled. If you have not heard from them within the next 2 business days, please call them directly. You may also reach out to our logistics loss prevention manager at [phone] and she can assist you. SENT REFERRAL) Patient Instructions: Hydrocodone/Acetaminophen (By mouth), Tramadol (By mouth), Pantoprazole (By mouth), Pancreatitis (GEN), Opioid Safety Activity Restrictions/Additional Instructions: Continue with clear liquid diet for now advance gradually within next 2 weeks. Take multiple small meals. Check your blood pressures daily at home. Hold off on lisinopril for now. Continue taking your other medications including Cardizem and metoprolol as before. Discharge Attestations Time Spent in Discharge Care*: greater than 30 min Specific Discharge Activities: educating patient, educating and/or supporting family/caregiver, discussing with pcp/other providers, discussing with supportive employment case manager/social workers/dc planners, documenting/other paperwork and evaluating patient/reviewing data Status at Discharge: Cognitive status at discharge: cognitively intact, Behavioral status at discharge: cooperative, Functional status at discharge: other assisted ambulation, Overall status at discharge: patient is back to baseline Quality Metrics Clinical Quality Measures [ No reported AMI, CVA or VTE this stay] Coding Level of Care Code 34862 Total time (in minutes) for Discharge: 55 Diagnoses Acute hyponatremia E87.1 Hypokalemia E87.6 Acute on chronic pancreatitis K85.90; K86.1 Acute alcohol intoxication F10.929 Thrombocytopenia D69.6 Hypertension I10 Anxiety and depression F41.9; F32.A
--- NOTE | 2023-06-14 10:19 | PC.NURSE ---
discussed [facility] with pt, offered to help him fill out the paperwork. Pt states he has a debilitating fear of driving and his is not able to take him to the facility according to the facility schedule, so he will continue with his counseling at [facility] [place] and feels that it is sufficient.
[2023-06-14 10:31] VITALS: RESP 18; O2SAT 98
[2023-06-14 11:16] VITALS: BP 121/87; PULSE 91; RESP 18; TEMP 36.7; O2SAT 97
[2023-06-14 11:37] VITALS: BP 121/87; PULSE 91; RESP 18; TEMP 36.7; O2SAT 97
== END 2023-06-14 11:35 | disposition home or self-care (01) | DRG 439 ==
LOC: ER 12:20 → ICU 13:42 → MEDSURG 06-12 13:41
PROVIDERS: Admitting Provider Internal Medicine; Emergency Provider Family Medicine; PCP Family Medicine Adult Medicine; Visit Provider Student in an Organized Health Care Education/Training Program
DX: K85.20 Alcohol induced acute pancreatitis without necrosis or infection (principal); E87.1 Hypo-osmolality and hyponatremia; F10.120 Alcohol abuse with intoxication, uncomplicated; Y90.8 Blood alcohol level of 240 mg/100 ml or more; K86.0 Alcohol-induced chronic pancreatitis; F10.129 Alcohol abuse with intoxication, unspecified; F43.10 Post-traumatic stress disorder, unspecified; F41.9 Anxiety disorder, unspecified; F32.A Depression, unspecified; K21.9 Gastro-esophageal reflux disease without esophagitis; E78.5 Hyperlipidemia, unspecified; I10 Essential (primary) hypertension; E87.6 Hypokalemia; E83.42 Hypomagnesemia; Z79.891 Long term (current) use of opiate analgesic; N62 Hypertrophy of breast; D69.59 Other secondary thrombocytopenia
CPT/HCPCS: 36415; 36416; 74018; 80048; 80053; 80069; 80307; 81001; 82962; 83690; 83735; 84100; 85025; 93005; 96374; 96375; 96376; 99285; C9113; J0360; J0780; J1170; J2060; J2270; J2405; J3480; J3490; J7030; J7070; J7120

== ENCOUNTER → 2023-06-15 14:15 | Outpatient (BNVA) | payer MEDICAID, SELFPAY | PROVIDERS: PCP Family Medicine Adult Medicine; Visit Provider Internal Medicine | DX: R07.9 Chest pain, unspecified (principal); R00.0 Tachycardia, unspecified | CPT/HCPCS: 93005 ==

== ENCOUNTER 2023-07-08 14:01 | Inpatient (IN) | payer MEDICAID, SELFPAY ==
[2023-07-08] VITALS (45 sets, daily range): BP systolic 111–147; BP diastolic 70–100; PULSE 112–150; RESP 14–29; TEMP 36.8–37.7; O2SAT 91–100
--- NOTE | 2023-07-08 14:09 | XRR_ITS ---
PROCEDURE INFORMATION: Exam: XR Chest Exam date and time: 07/08/2023 2:54 PM Age: 33 years old Clinical indication: Shortness of breath and tachypnea; Patient HX: Dyspnea; Cough; Unable to eat/drink x 4 days; Lowerback pain TECHNIQUE: Imaging protocol: Radiologic exam of the chest. Views: 1 view. COMPARISON: CR XR chest 1V portable [id number] 04/14/2023 2:55 PM FINDINGS: Lungs: Unremarkable. No consolidation. Pleural spaces: Unremarkable. No pleural effusion. No pneumothorax. Heart/Mediastinum: Unremarkable. No cardiomegaly. Bones/joints: Unremarkable. XR/XR chest 1V portable [id number] IMPRESSION: No acute findings.
[2023-07-08 14:21] LABS: Basophils % 0.3 %; Hematocrit 35.9 % (37-53); Lymphocytes # 0.8 10^3/uL (0.8-4.8); Mean Corpuscular HGB Conc 35.1 g/dL (30-55); Mean Corpuscular Hemoglobin 33.9 pg (27-33); Mean Corpuscular Volume 96.5 fl (82-101); Mean Platelet Volume 10.6 fL (7.4-10.4); Monocytes # 0.2 10^3/uL (0.2-0.9); Monocytes % 5.2 %; Neutrophils # 1.97 10^3/uL (1.8-7.7); Neutrophils % 68.2 %; Nucleated Red Blood Cells % 0 %; Platelet Count 86 10^3/cmm (157-399); Red Blood Count 3.72 10^6/uL (3.85-5.65); Red Cell Distribution Width 13.8 % (12.1-15.1); White Blood Count 2.89 10^3/uL (3.29-11.43)
--- NOTE | 2023-07-08 14:35 | ED_ITS ---
HPI - General Adult General: Chief complaint: Back Pain/Injury Stated complaint: LETHARGY Time Seen by Provider: 07/08/23 14:08 Source: patient Mode of arrival: ambulatory History of Present Illness: 33-year-old male presents emergency room complaining of having had a fall with severe back pain. Patient is a well-known chronic alcoholic he appears to be significantly intoxicated he has a large hematoma in his lower back with significant amount of ecchymosis to skin surface. He denies striking his head or loss of consciousness. He has had significant nausea and vomiting and abdominal pain as well. Onset (ago): minute(s) Location: head [facility] ED PFSH: Medical History Acute on chronic pancreatitis Acute posttraumatic stress disorder Alcohol abuse Anxiety and depression Chronic nasal congestion Chronic nausea GERD (gastroesophageal reflux disease) Gynecomastia, male Hyperlipidemia Hypertension Panic attack Transaminitis Surgical History No pertinent past surgical history Family History Father Hypertension Social History Smoking and tobacco status: never smoked Alcohol intake: current Alcohol intake frequency: 0-2 Drinks per Day Substance/Drug Use: never Marital status: Number of children: 5 Current occupational status: employed Current gender identity: Male Course Vital Signs: Vital signs: Vital Signs Temperature 98.7 F 07/11/23 05:00 Pulse Rate 109 H 07/11/23 05:00 Respiratory Rate 16 07/11/23 05:23 Blood Pressure 132/91 07/11/23 05:00 Pulse Oximetry 95 07/11/23 05:00 Oxygen Delivery Me thod Room Air 07/11/23 05:00 MDM - General Adult Medical Decision Making Acute on chronic pancreatitis with severe intoxication. Remarkably patient is highly functional and blood alcohol over 400. Discussed with him the fact that he is causing irreversible damage to his drinking strongly consider stopping. Discussed with hospitalist will admit. He also has severe thrombocytopenia resulting in rather remarkable hematoma on his back there is no fracture. Medical Records I reviewed the patient's medical records. Lab Data I reviewed the patient's lab results. 07/11/23 04:32 07/11/23 04:32 Radiology Impressions Chest X-Ray 07/08/23 14:09 IMPRESSION: No acute findings. Abdomen/Pelvis CT 07/08/23 14:59 IMPRESSION: 1. Hepatomegaly with fatty infiltration of the liver. 2. There is edema and/or hematoma in the subcutaneous soft tissues of the right flank and right gluteal region. Laboratory Results WBC 2.89 10^3/uL (3.29-11.43) L 07/08/23 13:50 RBC 3.72 10^6/uL (3.85-5.65) L 07/08/23 13:50 Hgb 12.60 g/dL (11.27-16.99) 07/08/23 13:50 Hct 35.9 % (37-53) L 07/08/23 13:50 MCV 96.5 fl (82-101) 07/08/23 13:50 MCH 33.9 pg (27-33) H 07/08/23 13:50 MCHC 35.1 g/dL (30-55) 07/08/23 13:50 RDW 13.8 % (12.1-15.1) 07/08/23 13:50 Plt Count 86 10^3/cmm (157-399) L 07/08/23 13:50 MPV 10.6 fL (7.4-10.4) H 07/08/23 13:50 Neut % (Auto) 68.2 % 07/08/23 13:50 Lymph % (Auto) 26.0 % 07/08/23 13:50 [place] % (Auto) 5.2 % 07/08/23 13:50 Eos % (Auto) 0.0 % 07/08/23 13:50 Baso % (Auto) 0.3 % 07/08/23 13:50 Neut # (Auto) 1.97 10^3/uL (1.8-7.7) 07/08/23 13:50 Lymph # (Auto) 0.8 10^3/uL (0.8-4.8) 07/08/23 13:50 [place] # (Auto) 0.2 10^3/uL (0.2-0.9) 07/08/23 13:50 Eos # (Auto) 0.0 10^3/uL (0.0-0.8) 07/08/23 13:50 Baso # (Auto) 0.0 10^3/uL (0.0-0.1) 07/08/23 13:50 Nucleated RBC % (auto) 0 % 07/08/23 13:50 Nucleated RBCs # 0.0 /100WBC 07/08/23 13:50 Sodium 130 mmol/L (136-145) L 07/08/23 13:50 Potassium 4.1 mmol/L (3.5-5.1) 07/08/23 13:50 Chloride 87 mmol/L (98-107) L 07/08/23 13:50 Carbon Dioxide 15 mmol/L (22-29) L 07/08/23 13:50 Anion Gap 32.1 (5-19) H 07/08/23 13:50 BUN 10 mg/dL (6-20) 07/08/23 13:50 Creatinine 0.6 mg/dL (0.7-1.2) L 07/08/23 13:50 GFR Calculation 155.2 mL/min (90-130) H 07/08/23 13:50 Glucose 89 mg/dL (65-115) 07/08/23 13:50 Calculated Osmolality 269 mOsm/kg (285-295) L 07/08/23 13:50 Calcium 8.4 mg/dL (8.5-10.5) L 07/08/23 13:50 Total Bilirubin 5.3 mg/dL (0.15-1.2) H 07/08/23 13:50 AST 362 U/L (0-40) H 07/08/23 13:50 ALT 146 U/L (0-41) H 07/08/23 13:50 Alkaline Phosphatase 275 U/L (40-130) H 07/08/23 13:50 Total Protein 7.9 g/dL (6.6-8.7) 07/08/23 13:50 Albumin 4.5 g/dL (3.5-5.2) 07/08/23 13:50 Globulin 3.4 g/dL (1.3-4.6) 07/08/23 13:50 Lipase 172 U/L (13-60) H 07/08/23 13:50 Ethyl Alcohol 401 mg/dL (0-10) H* 07/08/23 13:50 All radiology interpretation(s) finalized by discharge Discharge Plan Discharge Patient Disposition: Admitted As Inpatient Admit Provider: Dustin Alex Clinical Impression: Acute on chronic pancreatitis, Alcohol abuse, Thrombocytopenia, Acute alcohol intoxication, Alcoholic hepatitis, Subcutaneous hematoma Condition: Stable Coding Level of Care Code ED Milk Vendor for Al Duran
[2023-07-08] MEDS: sodium chloride 0.9% 1,000 ML 999 ML IV (14:36)
[2023-07-08] MEDS: ondansetron 2 mg/ML SDV 2 mL 4 MG IVP ×2 (14:36→23:19)
--- NOTE | 2023-07-08 14:38 | PC.NURSE ---
PT STATES HE HIT HIS HEAD WHEN HE FELL. PHYSICIAN NOTIFIED .
--- NOTE | 2023-07-08 14:41 | PC.PHAR ---
STATES PT ONLY TOOK CLONIDINE 0.1 MG, LISINOPRIL 40 MG, AND PANTOPRAZOLE 40 MG THIS MORNING. ALL OTHER MEDS HAVE NOT BEEN TAKEN PROPERLY SINCE LAST WEEK.
[2023-07-08 14:42] LABS: Alanine Aminotransferase 146 U/L (0-41); Albumin Level 4.5 g/dL (3.5-5.2); Alkaline Phosphatase 275 U/L (40-130); Anion Gap 32.1 (5-19); Aspartate Amino Transferase 362 U/L (0-40); Blood Urea Nitrogen 10 mg/dL (6-20); Calcium 8.4 mg/dL (8.5-10.5); Carbon Dioxide 15 mmol/L (22-29); Chloride 87 mmol/L (98-107); Globulin 3.4 g/dL (1.3-4.6); Glomerular Filtration Rate 155.2 mL/min (90-130); Glucose 89 mg/dL (65-115); Lipase 172 U/L (13-60); Osmolality Calculated 269 mOsm/kg (285-295); Potassium 4.1 mmol/L (3.5-5.1); Sodium 130 mmol/L (136-145); Total Bilirubin 5.3 mg/dL (0.15-1.2); Total Protein 7.9 g/dL (6.6-8.7)
--- NOTE | 2023-07-08 14:47 | ECG_ITS ---
[facility] Test Date: 2023-07-08 Pat Name: Buddy Cowan Department: Room: Gender: Male Chief Operating Engineer: : 1990 Requested By: Igor Isaac Order Number: [id number] Thomas MD: Jorje Eller M.D. Measurements Intervals [place] Rate: 108 P: 81 NC: 179 QRS: 56 QRSD: 84 T: 47 QT: 314 QTc: 423 Interpretive Statements SINUS TACHYCARDIA Compared to ECG 06/15/2023 14:19:38 T-wave abnormality no longer present Electronically Signed On 07-09-2023 11:11:15 CDT by Jorje Eller M.D. [email or web address]
[2023-07-08 14:52] LABS: Alcohol Level 401 mg/dL (0-10)
--- NOTE | 2023-07-08 14:59 | CTR_ITS ---
PROCEDURE INFORMATION: Exam: CT Abdomen And Pelvis With Contrast Exam date and time: 07/08/2023 3:09 PM Age: 33 years old Clinical indication: Abdominal pain; Generalized; TECHNIQUE: Imaging protocol: Computed tomography of the abdomen and pelvis with contrast. Radiation optimization: All CT scans at this facility use at least one of these dose optimization techniques: automated exposure control; mA and/or kV adjustment per patient size (includes targeted exams where dose is matched to clinical indication); or iterative reconstruction. Contrast material: OMNI 350; Contrast volume: 100 ml; Contrast route: INTRAVENOUS (IV); REPORTING DATA: Count of CT and Cardiac NM exams in prior 12 months: This patient has received 12 known CTs and 0 known cardiac nuclear medicine studies in the 12 months prior to the current study. COMPARISON: CT abdomen pelvis w con* [id number] 04/27/2023 11:12 AM RADIATION DOSE METRICS: Total DLP (mGy-cm): 628.48 FINDINGS: Liver: Hepatomegaly with fatty infiltration of the liver. Gallbladder and bile ducts: Normal. No calcified stones. No ductal dilation. Pancreas: Normal. No ductal dilation. Spleen: Normal. No splenomegaly. Adrenal glands: Normal. No mass. Kidneys and ureters: Normal. No hydronephrosis. Stomach and bowel: Unremarkable. No obstruction. No mucosal thickening. Appendix: A normal appendix is identified. Intraperitoneal space: Unremarkable. No free air. No significant fluid collection. Vasculature: Unremarkable. No abdominal aortic aneurysm. Lymph nodes: Unremarkable. No enlarged lymph nodes. Urinary bladder: Unremarkable as visualized. Reproductive: Unremarkable as visualized. Bones/joints: Unremarkable. No acute fracture. Soft tissues: There is edema and/or hematoma in the subcutaneous soft tissues of the right flank and right gluteal region. CT/CT abdomen pelvis w con* [id number] IMPRESSION: 1. Hepatomegaly with fatty infiltration of the liver. 2. There is edema and/or hematoma in the subcutaneous soft tissues of the right flank and right gluteal region.
[2023-07-08] MEDS: iohexol 350 mg/mL 500 mL Btl (per mL) IV (15:14)
[2023-07-08] MEDS: lactated ringers 1,000 ML 999 ML IV ×2 (15:28→15:32)
[2023-07-08] MEDS: pantoprazole 40 mg SDV IVP (15:28)
--- NOTE | 2023-07-08 17:48 | PC.NURSE ---
emesis noted approx 50cc all yellowish bile.. noted no blood tinge at this time
--- NOTE | 2023-07-08 18:05 | P.HP_ITS ---
Providers/Chief Complaint Admitting Physician: Dustin Alex DO Primary Care Provider: Antonio Alvarado MD Chief Complaint: LETHARGY History of Present Illness Buddy Cowan is a 33 year old male with of acute on chronic pancreatitis, PTSD, alcohol abuse, anxiety and depression, hyperlipidemia, hypertension, panic attacks, transaminitis who has been to our emergency emergency department 12 times since the beginning of 2020. He has been admitted 9-10 of these times. Today he is brought here after falling down the stairs at home. He was found to be severely intoxicated with an EtOH level of 400 he is also found to have elevated lipase worsening elevated LFTs. Is admitted to the ICU due to to high risk of alcohol withdrawal. Review of Systems Const: Denies: fever(s) or chills Eyes: Denies: change in vision ENMT: Denies: throat pain or nasal congestion Card: Denies: chest pain or palpitations Resp: Denies: dyspnea or productive cough GI: Denies: change in stool character : Denies: difficulty urinating or dysuria Musc: Reports: back pain; Denies: extremity pain Skin/Breast: Denies: rash or lesions Neuro: Denies: headache(s) or dizziness Psych: Denies: anxiety or depression Kris/Lymph: Denies: easy bruising or easy bleeding Medications/Allergies Home Medications Medication Instructions Recorded Confirmed Last Taken Type lisinopril 40 mg tablet 40 mg PO QAM 01/30/21 07/08/23 07/08/23 History resveratrol 250 mg capsule 250 - 500 mg PO DAILY PRN 01/18/22 07/08/23 1 Week Ago History Inflammation ~07/01/23 Nu-Salt See Rx Instructions .Route .COMPLEX 11/30/22 07/08/23 1 Week Ago History ~07/01/23 magnesium hydroxide 400 mg/5 mL 30 ml PO BID PRN Constipation 12/22/22 07/08/23 1 Week Ago History oral suspension (Milk of Magnesia) ~07/01/23 trazodone 50 mg tablet 25 mg PO BEDTIME PRN Sleep #45 tabs 02/27/23 07/08/23 1 Week Ago Rx ~07/01/23 Pancreat-Bet [id number]-[id number] 250 1 cap PO .UP TO TID PRN UNKNOWN 04/14/23 07/08/23 1 Week Ago History mg-162 mg-65 mg-125 mg capsule ~07/01/23 (Super Enzyme) Pancreatin 2000 1 cap PO .UP TO TID PRN UNKNOWN 04/14/23 07/08/23 1 Week Ago History ~07/01/23 metoprolol tartrate 100 mg tablet 100 mg PO BID 04/14/23 07/08/23 1 Week Ago History ~07/01/23 vitamin B complex 1 tab PO DAILY PRN UNKNOWN 04/14/23 07/08/23 1 Week Ago History ~07/01/23 metoclopramide HCl 10 mg tablet 10 mg PO Q6H PRN nausea and 04/27/23 07/08/23 1 Week Ago Rx (Reglan) vomiting #30 tabs ~07/01/23 clonidine HCl 0.1 mg tablet 0.1 mg PO BID #60 tabs 05/09/23 07/08/23 07/08/23 Rx ondansetron 4 mg disintegrating 4 mg PO Q6H PRN nausea and 06/14/23 07/08/23 Unknown Rx tablet vomiting #60 tabs pantoprazole 40 mg tablet,delayed 40 mg PO DAILY 4 weeks #30 tabs 06/14/23 07/08/23 07/08/23 Rx release (Protonix) sucralfate 100 mg/mL oral 10 ml PO TID #1,000 mL 06/14/23 07/08/23 Unknown Rx suspension loratadine 10 mg tablet 10 mg PO DAILY allergies #30 tabs 06/16/23 07/08/23 1 Week Ago Rx ~07/01/23 mirtazapine 15 mg tablet 15 mg PO BEDTIME #30 tabs 06/16/23 07/08/23 1 Week Ago Rx ~07/01/23 Allergies Allergy/AdvReac Type Severity Reaction Status Date / Time aspirin Allergy Unknown ADR-Gastrointestinal Verified 06/16/23 15:12 Upset NSAIDS (Non-Steroidal Allergy Unknown Unknown Verified 06/16/23 15:12 Anti-Inflamma acetaminophen [From Tylenol] Allergy ADR-Gastrointestinal Verified 06/16/23 15:12 Upset naproxen [From Aleve] Allergy Unknown Verified 06/16/23 15:12 zolpidem [From Ambien] Allergy ADR-Nightma Verified 06/16/23 15:12 re buspirone AdvReac Intermediate ADR-Anxiety Verified 06/16/23 15:12 PFSH Acute PFSH: Medical History Acute on chronic pancreatitis Acute posttraumatic stress disorder Alcohol abuse Anxiety and depression Chronic nasal congestion Chronic nausea GERD (gastroesophageal reflux disease) Gynecomastia, male Hyperlipidemia Hypertension Panic attack Transaminitis Surgical History No pertinent past surgical history Family History Father Hypertension Social History Smoking and tobacco status: never smoked Alcohol intake: current Alcohol intake frequency: 0-2 Drinks per Day Substance/Drug Use: never Marital status: Number of children: 5 Current occupational status: employed Current gender identity: Male Vitals/I&O/Wt Last Vital Signs Temp 98.2 F 07/08/23 14:02 Pulse 121 H 07/08/23 16:48 Resp 21 H 07/08/23 16:48 BP 147/100 07/08/23 16:48 Pulse Ox 95 07/08/23 16:48 O2 Del Method Room Air 07/08/23 16:00 07/08/23 07/08/23 07/08/23 06:59 14:59 22:59 Intake Total 1999 Balance 1999 Physical Exam Narrative: At adult male in mild distress at time of exam due to back pain appears chronically ill. HEENT: Head is normocephalic atraumatic pupils equal round and reactive to light and accommodation extraocular muscles intact there is no scleral icterus neck is supple no JVD carotid bruits or lymphadenopathy mucous membranes are somewhat dry and erythematous. Neck is supple no JVD carotid bruits or lymphadenopathy . Chest:rises symmetrically with inspiration Heart: regular rhythm tachycardic. No loud murmur click gallop or rub Lungs: Clear to auscultation without wheezes rales or rhonchi Abdomen: diffuse tenderness throughout. Nondistended hypoactive bowel sounds Extremities: No clubbing cyanosis or edema Back: There is a bruise in the left upper back and bilaterally in the lower lumbar region. : Normal male Psych: Patient displays denial and conversation about alcoholism he appears depressed. Skin: Warm and dry Data 07/08/23 13:50 07/08/23 13:50 CT Abd/Pel: Radiologist's impression: IMPRESSION: 1. ? Hepatomegaly with fatty infiltration of the liver. 2. ? There is edema and/or hematoma in the subcutaneous soft tissues of the right flank and right gluteal region. CXR: My impression: No acute findings Radiologist's impression: No acute findings A&P Assessment and plan (1) Acute alcohol intoxication: Fluids, banana bag, CIWA protocol (2) Acute on chronic pancreatitis: Bowel rest IV fluids pain control (3) Dehydration: IV hydration (4) Status post fall: (5) Multiple bruises: Local lidocaine patches or other cream. (6) Alcoholism: Patient states I am not a drunk . After asking him if he is ever been to AA he says he has a sponsor but he has not read the book or participated in the step program. He states he is attempted to go to [facility] but it was an intensive outpatient program and this was not satisfactory to him. I talked about a 30-day inpatient treatment he says he is agreeable however I hear from staff that know him that he just will not ever go. I think this needs to be of [facility] again. He tells me that his is leaving him he may have finally hit his rock bottom in order to get clean. Attestations Medical Necessity Statement*: Patient expected to cross 2 midnights for the care of acute on chronic alcoholism intoxication acute on chronic pancreatitis and management of w ithdrawal. Coding Level of Care Code Acute Code for [facility] Fwd Diagnoses Acute alcohol intoxication F10.929 Acute on chronic pancreatitis K85.90; K86.1 Dehydration E86.0 Status post fall Z91.81 Multiple bruises T07.XXXA Alcoholism F10.20
[2023-07-08] MEDS: enoxaparin 40 mg/0.4 mL Syringe SUBCUT (19:18)
[2023-07-08] MEDS: folic acid 1 MG, multivitamin inj 10 ML, thiamine 100 MG in sodium chloride 0.9% 1,000 ML 252.8 MG IV (19:18)
[2023-07-08] MEDS: famotidine 20 mg/2 mL INJ IVP (19:18)
[2023-07-08] MEDS: LORazepam 2 mg/mL INJ 1 mL IVP (19:39)
--- NOTE | 2023-07-08 20:13 | PC.NURSE ---
Bladder Scan Report of urinary retention. Pt bladder scanned: 987 ML. Pt states he can only urinate while in bath tub laying down, pt also reports hst of prostate issues. Physician notified, order for chong catheter.
[2023-07-08 21:03] LABS: Add Urine Microscopic? NO; Charge for UA Resulting for Rev
[2023-07-08] MEDS: morphine 4 mg/mL SDV 1 mL 2 MG IVP (21:05)
[2023-07-08 21:19] LABS: Amphetamines Screen Urine Negative (Negative); Barbiturates Screen Urine Negative (Negative); Benzodiazepines Screen Urine Negative (Negative); Cocaine Screen Urine Negative (Negative); Glucose Urine UA Norm (Normal); Ketones Urine 1+ (Negative); Opiate Screen Urine Negative (Negative); PCP Screen Urine Negative (Negative); Protein Urine Neg (Negative); Specific Gravity, Urine 1.015 (1.005-1.030); THC Screen Urine Negative (Negative); Urine Appearance Clear (CLEAR); Urine Color Yellow (Yellow); pH Urine 5 (5-7)
[2023-07-08 21:20] LABS: Bilirubin Urine Neg (Negative); Blood Urine Neg (Negative); Leukocyte Esterase Urine Negative (Negative); Nitrate Urine Negative (Negative); Urobilinogen Urine 4 mg/dL (Negative)
[2023-07-09] VITALS (37 sets, daily range): BP systolic 119–164; BP diastolic 80–107; PULSE 92–148; RESP 14–32; TEMP 36.9–37.1; O2SAT 79–100
[2023-07-09] MEDS: LORazepam 2 mg/mL INJ 1 mL IVP ×4 (01:34→20:00)
[2023-07-09] MEDS: morphine 4 mg/mL SDV 1 mL 2 MG IVP ×5 (02:27→22:01)
[2023-07-09 04:42] LABS: Alanine Aminotransferase 119 U/L (0-41); Alkaline Phosphatase 227 U/L (40-130); Anion Gap 25.9 (5-19); Aspartate Amino Transferase 287 U/L (0-40); Blood Urea Nitrogen 7 mg/dL (6-20); Calcium 7.9 mg/dL (8.5-10.5); Carbon Dioxide 17 mmol/L (22-29); Chloride 94 mmol/L (98-107); Globulin 2.6 g/dL (1.3-4.6); Glomerular Filtration Rate 155.2 mL/min (90-130); Glucose 88 mg/dL (65-115); Osmolality Calculated 273 mOsm/kg (285-295); Potassium 3.9 mmol/L (3.5-5.1); Sodium 133 mmol/L (136-145); Total Bilirubin 5.5 mg/dL (0.15-1.2); Total Protein 6.6 g/dL (6.6-8.7)
--- NOTE | 2023-07-09 04:59 | PC.NURSE ---
Metoprolol Per patient, pt no longer takes home med metoprolol due to potential fertility issues. Physician notified. No new orders.
[2023-07-09 05:03] LABS: Lipase 434 U/L (13-60)
--- NOTE | 2023-07-09 05:04 | PC.NURSE ---
Pt used called nurse to bedside I'm having really bad mental problems When asked what his symptoms were, pt stated my ears, everything is extremely loud, I cant stop imagining things and seeing things, like random stuff. Nothing violent, just a very vivid thing of you nurses putting ice cream on a libertarian hat for no reason . Pt CIWA evaluated at this time.
[2023-07-09] MEDS: ondansetron 2 mg/ML SDV 2 mL 4 MG IVP ×2 (05:17→20:00)
[2023-07-09] MEDS: famotidine 20 mg/2 mL INJ IVP ×2 (05:58→17:22)
[2023-07-09] MEDS: dextrose 5%-sod chloride 0.45% 1,000 ML 150 ML IV ×3 (05:59→12:33)
[2023-07-09] MEDS: lidocaine 2% viscous 15 ML, aluminum-mag hydrox-simethicon 30 ML, sucralfate oral liq 1 GM PO (08:16)
--- NOTE | 2023-07-09 08:20 | PC.NURSE ---
retching noted small amt frothy white section in barrett had zofran prior requesting gi cocktail .. doctor called and one time order given at this time
--- NOTE | 2023-07-09 10:00 | PC.NURSE ---
called staff to room c/o heart rate too high need something done .. talked with pt and had him do vagal no change after calming pt heart rate 120 highest was 130
--- NOTE | 2023-07-09 10:48 | PC.NURSE ---
c/o pain all over request given morphine after given he replied i have cramps in legs and back as well assured morphine should help that too
--- NOTE | 2023-07-09 11:05 | PC.NURSE ---
resting eyes closed heart rate 116
--- NOTE | 2023-07-09 12:40 | PC.NURSE ---
in to hang ivf pt remarked is it time for any medication yet ativan given then pt requested Dilaudid thats how pancretitis is treated explained had given morphine doctor will be in little bit ... then he requested 'chips and sips' explained with pain and nausea will remain npo at this time
--- NOTE | 2023-07-09 14:19 | PC.NURSE ---
morphine given per pt request
[2023-07-09] MEDS: enoxaparin 40 mg/0.4 mL Syringe SUBCUT (17:22)
--- NOTE | 2023-07-09 17:28 | PC.NURSE ---
at bedside for vist medication given noted bloody tinge urine while in room asked why bloody explained had probably pulled on it some ,, pt replied no its because my penis has retracted into my body .... the asked can i have my pain medicine now
--- NOTE | 2023-07-09 18:08 | PM.PN ---
Subjective Subjective: Patient having some nausea and coughing up some phlegm felt to be due to nasal congestion. He complains of his body aching status post fall. Per nursing he has been quite comfortable prior to my assessment. Patient's is at the bedside. We reviewed that the liver functions are worse and more concerning the extrinsic liver functions are worse related to pancreatitis. Vitals/I&O/Wt Last Vital Signs Temp 98.5 F 07/09/23 05:22 Pulse 112 H 07/09/23 17:00 Resp 15 07/09/23 17:00 BP 136/102 07/09/23 17:00 Pulse Ox 97 07/09/23 15:00 O2 Del Method Room Air 07/09/23 06:00 07/09/23 07/09/23 07/09/23 06:59 14:59 22:59 Intake Total 2908.7 / 4908.7 985 / 985 Output Total 950 / 950 800 / 800 Balance 1958.7 / 3958.7 985 / 985 -800 / 185 Physical Exam Narrative: At adult male in mild distress appears acute on chronically ill. Heart: regular rhythm tachycardic. No loud murmur click gallop or rub Lungs: Clear to auscultation without wheezes rales or rhonchi Abdomen: + tenderness epigastrium and right upper quadrant. Nondistended hypoactive bowel sounds Extremities: No clubbing cyanosis or edema Back: There is a bruise in the left upper back and bilaterally in the lower lumbar region. Urinary Catheter Management: Orozco: Cath Placed During This Visit: yes Reason for Continuing Indwelling Catheter: Acute Urinary Retention or Obstruction Urinary Catheter Date of Insertion: 07/08/23 Urinary Catheter Time of Insertion: 20:30 Data 07/08/23 13:50 07/09/23 03:34 A&P Assessment and plan (1) Acute alcohol intoxication: Fluids, banana bag, CIWA protocol Fluids changed to normal saline at 150 and D5 half at 50. (2) Acute on chronic pancreatitis: Bowel rest IV fluids pain control Increase morphine to 4 mg. (3) Dehydration: IV hydration with normal saline (4) Status post fall: We will check CPK (5) Multiple bruises: Local lidocaine patches or other cream. (6) Alcoholism: 07/08/2023 :patient states I am not a drunk . After asking him if he is ever been to AA he says he has a sponsor but he has not read the book or participated in the step program. He states he is attempted to go [facility] but it was an intensive outpatient program and this was not satisfactory to him. I talked about a 30-day inpatient treatment he says he is agreeable however I hear from staff that know him that he just will not ever go. I think this needs to be offered again. He tells me that his is leaving him he may have finally hit his rock bottom in order to get clean. Plan Will follow expectantly as stated above. We discussed transfer to a liver transplant center if patient does not show significant improvement in a few days. Attestations Medical Necessity Statement*: Patient expected to cross 2 midnights for the care of acute on chronic alcoholism intoxication acute on chronic pancreatitis and management of withdrawal. Coding Level of Care Code Acute Code for [facility] Fwd Diagnoses Acute alcohol intoxication F10.929 Acute on chronic pancreatitis K85.90; K86.1 Dehydration E86.0 Status post fall Z91.81 Multiple bruises T07.XXXA Alcoholism F10.20
[2023-07-09] MEDS: fluticasone nasal spray 16gm Btl 2 SPRAY NASAL (18:13)
[2023-07-09] MEDS: morphine 4 mg/mL SDV 1 mL IVP (18:14)
[2023-07-09] MEDS: hyDRALAzine 20 mg/mL INJ 1 mL 10 MG IVP (18:15)
[2023-07-09] MEDS: folic acid 1 MG, multivitamin inj 10 ML, thiamine 100 MG in sodium chloride 0.9% 1,000 ML 252.8 MG IV (19:43)
[2023-07-09] MEDS: sodium chloride 0.9% 1,000 ML 150 ML IV (19:44)
[2023-07-10] VITALS (26 sets, daily range): BP systolic 125–166; BP diastolic 85–122; PULSE 87–154; RESP 12–33; TEMP 36.7; O2SAT 94–100
[2023-07-10] MEDS: morphine 4 mg/mL SDV 1 mL IVP ×5 (00:29→21:08)
[2023-07-10] MEDS: LORazepam 2 mg Tablet PO (00:29)
[2023-07-10] MEDS: sodium chloride 0.9% 1,000 ML 150 ML IV ×2 (02:28→09:05)
[2023-07-10] MEDS: morphine 4 mg/mL SDV 1 mL 2 MG IVP ×2 (03:22→09:06)
[2023-07-10] MEDS: dextrose 5%-sod chloride 0.45% 1,000 ML 150 ML IV (03:22)
[2023-07-10 04:37] LABS: Basophils % 0.9 %; Eosinophils % 0.9 %; Hematocrit 28.3 % (37-53); Lymphocytes % 45.5 %; Mean Corpuscular HGB Conc 34.6 g/dL (30-55); Mean Corpuscular Hemoglobin 33.6 pg (27-33); Mean Corpuscular Volume 96.9 fl (82-101); Mean Platelet Volume 11.5 fL (7.4-10.4); Monocytes # 0.2 10^3/uL (0.2-0.9); Neutrophils % 44.7 %; Nucleated Red Blood Cells % 0 %; Platelet Count 35 10^3/cmm (157-399); Red Blood Count 2.92 10^6/uL (3.85-5.65); Red Cell Distribution Width 13.1 % (12.1-15.1); White Blood Count 2.24 10^3/uL (3.29-11.43)
[2023-07-10 05:01] LABS: Creatine Phosphokinase 36 U/L (39-308)
[2023-07-10 05:03] LABS: Alanine Aminotransferase 89 U/L (0-41); Albumin Level 3.3 g/dL (3.5-5.2); Alkaline Phosphatase 176 U/L (40-130); Anion Gap 13.9 (5-19); Aspartate Amino Transferase 176 U/L (0-40); Blood Urea Nitrogen 3 mg/dL (6-20); Carbon Dioxide 26 mmol/L (22-29); Chloride 99 mmol/L (98-107); Globulin 2.4 g/dL (1.3-4.6); Glomerular Filtration Rate 247.7 mL/min (90-130); Glucose 102 mg/dL (65-115); Osmolality Calculated 279 mOsm/kg (285-295); Sodium 136 mmol/L (136-145); Total Bilirubin 5.3 mg/dL (0.15-1.2); Total Protein 5.7 g/dL (6.6-8.7)
[2023-07-10 05:07] LABS: Potassium 2.9 mmol/L (3.5-5.1)
[2023-07-10] MEDS: famotidine 20 mg/2 mL INJ IVP ×2 (05:31→18:16)
[2023-07-10] MEDS: potassium chloride premix 100 ML 25 MEQ IV (05:31)
[2023-07-10] MEDS: LORazepam 2 mg/mL INJ 1 mL IVP ×3 (07:49→18:16)
[2023-07-10] MEDS: ondansetron 2 mg/ML SDV 2 mL 4 MG IVP ×3 (07:50→19:58)
[2023-07-10 10:32] LABS: INR 1.04 (0.8-1.2)
[2023-07-10] MEDS: hyDRALAzine 20 mg/mL INJ 1 mL 10 MG IVP ×2 (11:41→18:16)
[2023-07-10] MEDS: dextrose 5%-sod chloride 0.45% 1,000 ML 50 ML IV ×2 (11:42→23:47)
--- NOTE | 2023-07-10 14:38 | P.PN_ITS ---
Subjective Subjective: Chief complaint currently is that of pain over his flank at the location of his hematoma. CIWA score of 9 this morning. States that he is still nauseous. Has not tried to eat anything. Has been NPO. Would like to try advancing diet. Medications: Reviewed: Yes Vitals/I&O/Wt Last Vital Signs Temp 98.8 F 07/09/23 21:00 Pulse 98 07/10/23 12:00 Resp 14 07/10/23 12:44 BP 166/122 07/10/23 12:00 Pulse Ox 99 07/10/23 12:44 O2 Del Method Room Air 07/10/23 12:00 07/09/23 07/10/23 07/10/23 22:59 06:59 14:59 Intake Total 999 / 1984 2011.2 / 3996.2 3092.5 / 3092.5 Output Total 800 / 800 1000 / 1800 Balance 200 / 1185 1011.2 / 2196.2 3092.5 / 3092.5 Physical Exam Narrative: General: No acute distress, AO x3 does not maintain eye contact, evasive regarding questions about follow-up with primary care physician and computer methods analyst. HEENT: PERRLA, pupils bilaterally equal and reactive, pallors not present Chest: Normal vesicular breath sounds, no added sounds, equal good air entry bilaterally CVS: S1-S2 regular, no murmurs, no tachycardia, no gallops, no rubs Abdomen: Soft, nontender, no organomegaly, bowel sounds present Neuro: No focal deficits, no facial deformity, AO x3, power 5/5 in all limbs Extremities: Extensive hematoma over the lower back, worse on the right compared to left side. This has been present since admission. Urinary Catheter Management: Orozco: Cath Placed During This Visit: yes Reason for Continuing Indwelling Catheter: Accurate Measurement of Urinary Output in Critically Ill Patients Urinary Catheter Date of Insertion: 07/08/23 Urinary Catheter Time of Insertion: 20:30 Data 07/10/23 03:37 07/10/23 03:37 A&P Assessment and plan (1) Acute alcohol intoxication: Patient presenting with acute alcohol intoxication with Ethyl alcohol level greater than 400 upon admission. He has been on IV hydration, has been receiving multivitamins and thiamine intravenously so far. Currently he is on CIWA score monitoring, as recently as this morning was at 9 Concern for alcohol withdrawal for which she is on CIWA monitoring and as needed Ativan as needed. (2) Acute on chronic pancreatitis: Bowel rest IV fluids pain control Attempted to start clear liquid diet today and assess for tolerability. (3) Alcoholic hepatitis: Alcoholic hepatitis as evidenced by jaundice, T. bili 5.5, elevated AST ALT, multiple hematological abnormalities including anemia, leukopenia and thrombocytopenia. No evidence of cirrhosis currently on CT imaging. Alcoholic hepatitis is noted. MELD score currently at 19 corresponding with 6% 3-month mortality. No current indication for glucocorticoids or pentoxifylline. INR is normal. Patient is not interested in alcohol cessation programs, declines going to [facility] inpatient program. States that he does not think he is an alcoholic. Extensive counseling in this regard has been to no avail today. (4) Dehydration: IV hydration with normal saline Hydration status is improving (5) Status post fall: Resulting large hematoma over the lower back subcutaneously. Discussed with patient that anticipate slow recovery given thrombocytopenia with platelets at 35,000 Closely monitor for signs of any worsening bleeding (6) Alcoholism: Not interested in alcohol cessation currently. (7) Thrombocytopenia: Monitor closely No active bleeding noted Closely monitor hemoglobin (8) Subcutaneous hematoma: Conservative management as above Plan CODE STATUS: Full code DVT prophylaxis: Contraindicated currently in view of high risk of bleeding, thrombocytopenia, large hematoma. Attestations Medical Necessity Statement*: Transfer from ICU to med/surg today, monitor for falling platelets, CIWA, HB Coding Level of Care Code Acute Code for [facility] Fwd Diagnoses Acute alcohol intoxication F10.929 Acute on chronic pancreatitis K85.90; K86.1 Alcoholic hepatitis K70.10 Dehydration E86.0 Status post fall Z91.81 Alcoholism F10.20 Thrombocytopenia D69.6 Subcutaneous hematoma T14.8XXA
[2023-07-10] MEDS: enoxaparin 40 mg/0.4 mL Syringe SUBCUT (18:16)
[2023-07-10] MEDS: folic acid 1 MG, multivitamin inj 10 ML, thiamine 100 MG in sodium chloride 0.9% 1,000 ML 250 MG IV (19:47)
[2023-07-11] VITALS (9 sets, daily range): BP systolic 122–144; BP diastolic 84–99; PULSE 109–122; RESP 14–16; TEMP 36.8–37.5; O2SAT 95–97
[2023-07-11] MEDS: morphine 4 mg/mL SDV 1 mL IVP ×4 (01:03→15:02)
[2023-07-11] MEDS: ondansetron 2 mg/ML SDV 2 mL 8 MG IVP (03:53)
[2023-07-11] MEDS: LORazepam 2 mg/mL INJ 1 mL IVP (03:58)
[2023-07-11 04:40] LABS: Basophils % 0.4 %; Eosinophils % 0.7 %; Hematocrit 28.6 % (37-53); Lymphocytes # 0.8 10^3/uL (0.8-4.8); Lymphocytes % 28.8 %; Mean Corpuscular HGB Conc 33.9 g/dL (30-55); Mean Corpuscular Hemoglobin 33.4 pg (27-33); Mean Corpuscular Volume 98.6 fl (82-101); Monocytes # 0.2 10^3/uL (0.2-0.9); Monocytes % 8.4 %; Neutrophils # 1.68 10^3/uL (1.8-7.7); Neutrophils % 61.3 %; Nucleated Red Blood Cells % 0 %; Platelet Count 35 10^3/cmm (157-399); Red Cell Distribution Width 13.1 % (12.1-15.1); White Blood Count 2.74 10^3/uL (3.29-11.43)
[2023-07-11 04:55] LABS: Alanine Aminotransferase 75 U/L (0-41); Albumin Level 3.4 g/dL (3.5-5.2); Alkaline Phosphatase 179 U/L (40-130); Anion Gap 15.9 (5-19); Aspartate Amino Transferase 147 U/L (0-40); Blood Urea Nitrogen 2 mg/dL (6-20); Calcium 8.4 mg/dL (8.5-10.5); Carbon Dioxide 24 mmol/L (22-29); Chloride 96 mmol/L (98-107); Globulin 2.5 g/dL (1.3-4.6); Glomerular Filtration Rate 345.3 mL/min (90-130); Glucose 105 mg/dL (65-115); Osmolality Calculated 273 mOsm/kg (285-295); Sodium 133 mmol/L (136-145); Total Bilirubin 4.7 mg/dL (0.15-1.2); Total Protein 5.9 g/dL (6.6-8.7)
[2023-07-11 04:57] LABS: Ammonia 53 umol/L (16-60)
[2023-07-11 05:10] LABS: Potassium 2.9 mmol/L (3.5-5.1)
[2023-07-11] MEDS: lidocaine 1% 5 ML in potassium chloride premix 100 ML 26.25 ML IV ×2 (06:23→10:54)
[2023-07-11] MEDS: hyDRALAzine 20 mg/mL INJ 1 mL 10 MG IVP ×2 (08:49→14:25)
[2023-07-11] MEDS: famotidine 20 mg/2 mL INJ IVP (08:49)
--- NOTE | 2023-07-11 16:03 | PC.NURSE ---
Discharge Note Patient discharged to home via private vehicle accompanied by . 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 Mobile pharmacy medications and/or prescriptions provided. Belongings/home medications returned.
--- NOTE | 2023-07-11 16:46 | P.DS_ITS ---
Discharge Providers Date of Admission: 07/08/23 15:27 Date of Discharge: July 11, 2023 Attending Provider at Admission: Dustin Alex DO Attending Provider at Discharge: Fatoumata Shaw MD Primary Care Provider: Antonio Alvarado MD Diagnoses at Discharge Discharge Diagnosis (1) Acute alcohol intoxication: Status: Acute (2) Acute on chronic pancreatitis: Status: Acute (3) Alcoholic hepatitis: Status: Acute (4) Dehydration: Status: Acute (5) Status post fall: Status: Acute (6) Alcoholism: Status: Acute (7) Thrombocytopenia: Status: Acute (8) Subcutaneous hematoma: Status: Acute Reason for Visit Reason for Visit: LETHARGY Brief History: Buddy Cowan is a 33 year old male with of recurrent chronic pancreatitis, alcohol hepatitis, heavy alcohol abuse, anxiety and depression, who has a recurrent history of hospital admissions here. Most recently he was brought to the emergency room on July 08, 2023 after having sustained a fall down the stairs at home after being significantly intoxicated with an Ethyl alcohol level of 400. Hospital course as notable below Hospital Course Hospital Course (1) Acute alcohol intoxication: Patient admitted to the ICU on day of admission for close monitoring due to risk of alcohol withdrawal. Patient presenting with acute alcohol intoxication with Ethyl alcohol level greater than 400 upon admission. He received treatment with IV hydration, multivitamins and thiamine. He was on CIWA monitoring initially in the ICU and thereafter after transition to [facility]. Most recently his CIWA score this morning was at 1. He was treated with as needed Ativan for withdrawal. He is doing better with regards to alcohol withdrawal today. (2) Acute on chronic pancreatitis: With complaints of abdominal and flank pain. Lipase elevated in the [address] abdomen does not show any acute worsening of his pancreatitis. He received treatment with bowel rest IV fluids pain control He started clear liquid diet on July 10, 2023 and was able to tolerate a regular diet today. There was no nausea and no vomiting or abdominal pain triggered by food intake. (3) Alcoholic hepatitis: Alcoholic hepatitis as evidenced by jaundice, T. bili 5.5, elevated AST ALT, multiple hematological abnormalities including anemia, leukopenia and thrombocytopenia.? No evidence of cirrhosis currently on CT imaging.? Alcoholic hepatitis is noted, he has had chronically elevated liver enzymes with noted worsening since April of this year. MELD score currently at 19 corresponding with 6% 3-month mortality. Maddrey's discriminant function 10.1, overall favorable prognosis as long as patient can quit drinking alcohol. No current indication for glucocorticoids, NAC or pentoxifylline. INR is normal. Patient is not interested in alcohol cessation programs, declines going to [facility] inpatient program.? States that he does not think he is an alcoholic.? Extensive counseling in this regard has been to no avail. I offered several options including inpatient treatment, however patient declines and states that he knows its best for him to go home. He is eager to be discharged today. Discussed with him that alcohol cessation can be extremely difficult and he should try to utilize all resources available including attending AA meetings if he is not interested in an inpatient program. Patient does not think this is going to work for him. On several times during my interview he asked me to stop giving him bad news and only speak in positive words so that he remains encouraged to quit drinking. As is medically appropriate I highly encouraged him to follow-up with hepatology. He tells me that he has an upcoming GI appointment in [place] however unable to give me any details. He states that his takes care of all his appointments. I was unable to reach the today. Since patient is awake alert oriented, capable of taking his decisions and has decided to go home we are discharging him today in a chronically ill condition. (4) Dehydration: Resolved (5) Status post fall: Resulting large hematoma over the lower back subcutaneously. Discussed with patient that anticipate slow recovery given thrombocytopenia with platelets at 35,000 Closely monitor for signs of any worsening bleeding (6) Alcoholism: Not interested in alcohol cessation currently. Tells me that he is confident he will stop drinking when he returns home today (7) Thrombocytopenia: Monitor closely. Currently platelet count is at 35,000. No active bleeding noted Closely monitor hemoglobin, has been stable so far. No evidence of ongoing bleeding. Discussed with patient that I had like to monitor an additional 24 hours to ensure that platelet count is stable, however he declines and wishes to return home with close follow-up with his primary care provider later this week. (8) Subcutaneous hematoma: Conservative management as above Patient discharged today in a chronically ill but stable condition with high risk of readmission related to complications arising from alcohol use and pancreatitis Physical Exam Narrative: General: No acute distress, AO x3 HEENT: PERRLA, pupils bilaterally equal and reactive, pallors not present Chest: Normal vesicular breath sounds, no added sounds, equal good air entry bilaterally CVS: S1-S2 regular, no murmurs, no tachycardia, no gallops, no rubs Abdomen: Soft, nontender, no organomegaly, bowel sounds present Neuro: No focal deficits, no facial deformity, AO x3, power 5/5 in all limbs Urinary Catheter Management: Orozco: Cath Placed During This Visit: yes, but has since been removed by the nurse Reason for Continuing Indwelling Catheter: Decision to DC Catheter Urinary Catheter Date of Insertion: 07/08/23 Urinary Catheter Time of Insertion: 20:30 Date Urinary Catheter Removed: 07/11/23 Time Urinary Catheter Discontinued: 09:40 Discharge Data Studies Completed and Pending Completed Studies During Hospitalization Category Date Time Status CT abdomen pelvis w con* [id number] Stat Cat Scan 07/08/23 14:59 Completed XR chest 1V portable [id number] Stat Exams 07/08/23 14:09 Completed Radiology Impressions Chest X-Ray 07/08/23 14:09 IMPRESSION: No acute findings. Abdomen/Pelvis CT 07/08/23 14:59 IMPRESSION: 1. Hepatomegaly with fatty infiltration of the liver. 2. There is edema and/or hematoma in the subcutaneous soft tissues of the right flank and right gluteal region. Laboratory Results WBC 2.74 10^3/uL (3.29-11.43) L 07/11/23 04:32 RBC 2.90 10^6/uL (3.85-5.65) L 07/11/23 04:32 Hgb 9.70 g/dL (11.27-16.99) L 07/11/23 04:32 Hct 28.6 % (37-53) L 07/11/23 04:32 MCV 98.6 fl (82-101) 07/11/23 04:32 MCH 33.4 pg (27-33) H 07/11/23 04:32 MCHC 33.9 g/dL (30-55) 07/11/23 04:32 RDW 13.1 % (12.1-15.1) 07/11/23 04:32 Plt Count 35 10^3/cmm (157-399) L 07/11/23 04:32 MPV 12.0 fL (7.4-10.4) H 07/11/23 04:32 Neut % (Auto) 61.3 % 07/11/23 04:32 Lymph % (Auto) 28.8 % 07/11/23 04:32 [place] % (Auto) 8.4 % 07/11/23 04:32 Eos % (Auto) 0.7 % 07/11/23 04:32 Baso % (Auto) 0.4 % 07/11/23 04:32 Neut # (Auto) 1.68 10^3/uL (1.8-7.7) L 07/11/23 04:32 Lymph # (Auto) 0.8 10^3/uL (0.8-4.8) 07/11/23 04:32 [place] # (Auto) 0.2 10^3/uL (0.2-0.9) 07/11/23 04:32 Eos # (Auto) 0.0 10^3/uL (0.0-0.8) 07/11/23 04:32 Baso # (Auto) 0.0 10^3/uL (0.0-0.1) 07/11/23 04:32 Nucleated RBC % (auto) 0 % 07/11/23 04:32 Nucleated RBCs # 0.0 /100WBC 07/11/23 04:32 PT 13.90 SECONDS (12.1-14.9) 07/10/23 09:41 INR 1.04 (0.8-1.2) 07/10/23 09:41 Sodium 133 mmol/L (136-145) L 07/11/23 04:32 Potassium 2.9 mmol/L (3.5-5.1) L 07/11/23 04:32 Chloride 96 mmol/L (98-107) L 07/11/23 04:32 Carbon Dioxide 24 mmol/L (22-29) 07/11/23 04:32 Anion Gap 15.9 (5-19) 07/11/23 04:32 BUN 2 mg/dL (6-20) L 07/11/23 04:32 Creatinine 0.3 mg/dL (0.7-1.2) L 07/11/23 04:32 GFR Calculation 345.3 mL/min (90-130) H 07/11/23 04:32 Glucose 105 mg/dL (65-115) 07/11/23 04:32 Calculated Osmolality 273 mOsm/kg (285-295) L 07/11/23 04:32 Calcium 8.4 mg/dL (8.5-10.5) L 07/11/23 04:32 Total Bilirubin 4.7 mg/dL (0.15-1.2) H 07/11/23 04:32 AST 147 U/L (0-40) H 07/11/23 04:32 ALT 75 U/L (0-41) H 07/11/23 04:32 Alkaline Phosphatase 179 U/L (40-130) H 07/11/23 04:32 Ammonia 53 umol/L (16-60) 07/11/23 04:32 Creatine Kinase 36 U/L (39-308) L 07/10/23 03:37 Total Protein 5.9 g/dL (6.6-8.7) L 07/11/23 04:32 Albumin 3.4 g/dL (3.5-5.2) L 07/11/23 04:32 Globulin 2.5 g/dL (1.3-4.6) 07/11/23 04:32 Lipase 434 U/L (13-60) H 07/09/23 03:34 Urine Color Yellow (Yellow) 07/08/23 20:15 Urine Appearance Clear (CLEAR) 07/08/23 20:15 Urine pH 5 (5-7) 07/08/23 20:15 Ur Specific [place] 1.015 (1.005-1.030) 07/08/23 20:15 Urine Protein Neg (Negative) 07/08/23 20:15 Urine Glucose (UA) Norm (Normal) 07/08/23 20:15 Urine Ketones 1+ (Negative) H 07/08/23 20:15 Urine Blood Neg (Negative) 07/08/23 20:15 Urine Nitrate Negative (Negative) 07/08/23 20:15 Urine Bilirubin Neg (Negative) 07/08/23 20:15 Urine Urobilinogen 4 mg/dL (Negative) H 07/08/23 20:15 Ur Leukocyte Esterase Negative (Negative) 07/08/23 20:15 Urine Opiates Screen Negative ng/mL (Negative) 07/08/23 20:15 Ur Barbiturates Screen Negative ng/mL (Negative) 07/08/23 20:15 Ur Phencyclidine Scrn Negative ng/mL (Negative) 07/08/23 20:15 Ur Amphetamines Screen Negative ng/mL (Negative) 07/08/23 20:15 U Benzodiazepines Scrn Negative ng/mL (Negative) 07/08/23 20:15 Urine Cocaine Screen Negative ng/mL (Negative) 07/08/23 20:15 U Marijuana (THC) Screen Negative ng/mL (Negative) 07/08/23 20:15 Ethyl Alcohol 401 mg/dL (0-10) H* 07/08/23 13:50 Vitals Last Vital Signs Temp 98.3 F 07/11/23 12:00 Pulse 114 H 07/11/23 12:00 Resp 16 07/11/23 16:04 BP 140/99 07/11/23 12:00 Pulse Ox 95 07/11/23 12:00 O2 Del Method Room Air 07/11/23 12:00 Discharge Plan Discharge Patient Disposition: Home Condition: Stable Prescriptions: Continued resveratrol 250 mg capsule 250 - 500 mg PO DAILY PRN (Reason: Inflammation) mirtazapine 15 mg tablet 15 mg PO BEDTIME Qty: 30 0RF loratadine 10 mg tablet 10 mg PO DAILY Qty: 30 1RF trazodone 50 mg tablet 25 mg PO BEDTIME PRN (Reason: Sleep) Qty: 45 0RF clonidine HCl 0.1 mg tablet 0.1 mg PO BID Qty: 60 0RF lisinopril 40 mg Tablet 40 mg PO QAM Hold Instructions: Resume on 06/28/23. magnesium hydroxide [Milk of Magnesia] 400 mg/5 mL Suspension 30 ml PO BID PRN (Reason: Constipation) vitamin B complex Tablet 1 tab PO DAILY PRN (Reason: UNKNOWN) Super Enzyme [phone] mg Capsule 1 cap PO .UP TO TID PRN (Reason: UNKNOWN) Pancreatin 2000 1 cap PO .UP TO TID PRN (Reason: UNKNOWN) metoprolol tartrate 100 mg Tablet 100 mg PO BID metoclopramide HCl [Reglan] 10 mg tablet 10 mg PO Q6H PRN (Reason: nausea and vomiting) Qty: 30 0RF Nu-Salt See Rx Instructions .ROUTE .COMPLEX Rx Instructions: prn pantoprazole [Protonix] 40 mg tablet,delayed release (DR/EC) 40 mg PO DAILY 28 Days Qty: 30 0RF sucralfate 100 mg/mL suspension 10 ml PO TID Qty: 1000 0RF ondansetron 4 mg tablet,disintegrating 4 mg PO Q6H PRN (Reason: nausea and vomiting) Qty: 60 1RF Discharge Orders: Discharge Order (Routine); Ordered 07/11/23 Ordered By: Fatoumata Shaw Referrals: [facility] Behavioral Healthcare [Other] (?Follow up as a walk in at [facility], walk in hours are Monday-Monday from 7:30AM-3:00PM, first come, first seen. Once you do this assessment you will be referred for appropriate services.) Crisis Stabilization [Other] Antonio Alvarado MD [Primary Care Provider] - 07/12/23 10:30 am Patient Instructions: Pancreatitis (GEN), Abuse of Alcohol (GEN), Opioid Safety Discharge Attestations Time Spent in Discharge Care*: greater than 30 min Status at Discharge: Cognitive status at discharge: cognitively intact , Behavioral status at discharge: cooperative , Quality Metrics Clinical Quality Measures [ No reported AMI, CVA or VTE this stay] Coding Level of Care Code Acute Code for Chg Fwd Diagnoses Acute alcohol intoxication F10.929 Acute on chronic pancreatitis K85.90; K86.1 Alcoholic hepatitis K70.10 Dehydration E86.0 Status post fall Z91.81 Alcoholism F10.20 Thrombocytopenia D69.6 Subcutaneous hematoma T14.8XXA
== END 2023-07-11 16:05 | disposition home or self-care (01) | DRG 896 ==
LOC: ER 14:38 → ICU 15:49 → MEDSURG 07-10 20:45
PROVIDERS: Admitting Provider Internal Medicine; Emergency Provider Family Medicine; PCP Family Medicine Adult Medicine; Visit Provider Student in an Organized Health Care Education/Training Program
DX: F10.229 Alcohol dependence with intoxication, unspecified (principal); K85.20 Alcohol induced acute pancreatitis without necrosis or infection; K86.0 Alcohol-induced chronic pancreatitis; F10.239 Alcohol dependence with withdrawal, unspecified; K70.10 Alcoholic hepatitis without ascites; Y90.8 Blood alcohol level of 240 mg/100 ml or more; E86.0 Dehydration; D69.59 Other secondary thrombocytopenia; S30.0XXA Contusion of lower back and pelvis, initial encounter; W10.9XXA Fall (on) (from) unspecified stairs and steps, initial encounter; F41.9 Anxiety disorder, unspecified; F32.A Depression, unspecified; Z79.891 Long term (current) use of opiate analgesic; F43.10 Post-traumatic stress disorder, unspecified; F41.0 Panic disorder [episodic paroxysmal anxiety]; K21.9 Gastro-esophageal reflux disease without esophagitis; N62 Hypertrophy of breast; E78.5 Hyperlipidemia, unspecified; I10 Essential (primary) hypertension
CPT/HCPCS: 36415; 51702; 71045; 74177; 80053; 80306; 80307; 81003; 82140; 82550; 83690; 85025; 85610; 93005; 96372; 96374; 96375; 96376; 99285; C9113; J0360; J1650; J2060; J2270; J2405; J3411; J3480; J3490; J7030; J7120; J7799; Q9967

== ENCOUNTER 2023-07-31 03:32 | Emergency (ER) | payer MEDICAID, SELFPAY ==
[2023-07-31 03:32] VITALS: BP 117/65; PULSE 127; RESP 27; TEMP 36.4; O2SAT 100; BMI 24.4
[2023-07-31 03:44] VITALS: BP 117/65; PULSE 127; RESP 27; O2SAT 100
[2023-07-31] MEDS: sodium chloride 0.9% 1,000 ML 999 ML IV ×3 (03:55→05:29)
[2023-07-31 04:00] LABS: Basophils # 0.1 10^3/uL (0.0-0.1); Basophils % 1.5 %; Eosinophils % 0.2 %; Lymphocytes # 1.9 10^3/uL (0.8-4.8); Lymphocytes % 31.2 %; Mean Corpuscular Hemoglobin 34.2 pg (27-33); Mean Corpuscular Volume 97.8 fl (82-101); Mean Platelet Volume 10.1 fL (7.4-10.4); Monocytes # 0.5 10^3/uL (0.2-0.9); Monocytes % 7.3 %; Neutrophils # 3.66 10^3/uL (1.8-7.7); Neutrophils % 59.5 %; Nucleated Red Blood Cells % 0 %; Platelet Count 504 10^3/cmm (157-399); Red Cell Distribution Width 13.5 % (12.1-15.1); White Blood Count 6.15 10^3/uL (3.29-11.43)
[2023-07-31 04:15] LABS: Alanine Aminotransferase 170 U/L (0-41); Albumin Level 4.4 g/dL (3.5-5.2); Alcohol Level 270 mg/dL (0-10); Alkaline Phosphatase 230 U/L (40-130); Aspartate Amino Transferase 304 U/L (0-40); Blood Urea Nitrogen 4 mg/dL (6-20); C Reactive Protein 3.6 mg/L (0.0-4.9); Calcium 9.4 mg/dL (8.5-10.5); Carbon Dioxide 21 mmol/L (22-29); Chloride 94 mmol/L (98-107); Globulin 3.7 g/dL (1.3-4.6); Glomerular Filtration Rate 191.5 mL/min (90-130); Glucose 117 mg/dL (65-115); Lipase 12 U/L (13-60); Magnesium 1.7 mg/dL (1.7-2.3); Osmolality Calculated 282 mOsm/kg (285-295); Sodium 137 mmol/L (136-145); Total Bilirubin 2.5 mg/dL (0.15-1.2); Total Protein 8.1 g/dL (6.6-8.7)
[2023-07-31] MEDS: haloperidol inj 5 mg/mL INJ 1 mL IVP (04:16)
[2023-07-31 04:18] LABS: INR 1.03 (0.8-1.2)
--- NOTE | 2023-07-31 04:28 | ED_ITS ---
HPI - Abdominal Pain General: Chief Complaint: Abdominal Pain Stated Complaint: ABD PAIN Time Seen by Provider: 07/31/23 03:45 History of Present Illness: 33-year-old male has been seen twice in the last month and admitted for alcoholic hepatitis and pancreatitis. He returns to the emergency department this morning with intractable vomiting. He notes that he relapsed last night, and drank a bottle of wine . He started having right upper quadrant and epigastric pain and vomiting. He notes there to be blood in the vomitus. He denies fever. No diarrhea currently. Associated Symptoms: Reports chills, hematemesis, melena, nausea and vomiting; Denies diarrhea and fever(s) Review of Systems Const: Reports: chills; Denies: fever(s) or body aches Eyes: Denies: change in vision ENMT: Denies: throat pain Card: Denies: chest pain or palpitations Resp: Reports: dyspnea; Denies: productive cough, non-productive cough or wheezing GI: Reports: abdominal pain, nausea, vomiting, hematemesis and melena; Denies: diarrhea : Denies: flank pain Skin/Breast: Denies: rash Neuro: Reports: frequent falls and confusion; Denies: headache(s), weakness in extremities or dizziness PFS ED PFSH: Medical History Acute on chronic pancreatitis Acute posttraumatic stress disorder Alcohol abuse Anxiety and depression Chronic nasal congestion Chronic nausea GERD (gastroesophageal reflux disease) Gynecomastia, male Hyperlipidemia Hypertension Panic attack Transaminitis Surgical History No pertinent past surgical history Family History Father Hypertension Social History Smoking and tobacco/nicotine status: never used tobacco/nicotine Alcohol intake: current Alcohol intake frequency: 0-2 Drinks per Day Substance/Drug Use: never Marital status: Number of children: 5 Current occupational status: employed Current gender identity: Male Physical Exam Const: GENERAL APPEARANCE: cooperative and anxious; not frail appearing HENMT: COMMON NORMALS: normocephalic, atraumatic and Normal external nose present HEAD & SCALP: normocephalic and atraumatic FACE & SINUS: normal facial exam and face symmetric NOSE: Normal external nose present Eye: COMMON NORMALS: Equal, round and reactive pupils present and EOMs intact bilaterally SCLERA: scleral abnormal Laterality of scleral abnormality: posit tiffani bilateral scleral icterus (Minimal) PUPIL: Yes Equal, round and reactive pupils present Neck/C-Spine: COMMON NORMALS: full ROM GENERAL: Yes trachea midline Chest: CHEST: Yes Symmetrical chest wall rise Resp: COMMON NORMALS: normal respiratory effort, No retractions, No use of acc essory muscles and clear to auscultation bilaterally AUSCULTATION: clear to auscultation bilaterally Cardio: COMMON NORMALS: regular rhythm RATE: tachycardic RHYTHM: regular rhythm GI: PALPATION: Yes Tenderness to palpation present (GI) and Yes Guarding due to palpation present (GI) Extremity: COMMON NORMALS: no pedal edema Neuro: TYSON COMA SCALE: document GCS findings [place] coma scale eye openi ng: Spontaneous [place] coma scale verbal response: Orientated [place] coma scale motor response: Obey commands [place] coma scale total score: 15 Psych: COMMON NORMALS: mental status grossly normal Course Vital Signs: Vital signs: Vital Signs Temperature 97.6 F 07/31/23 03:32 Pulse Rate 110 H 07/31/23 07:24 Respiratory Rate 24 H 07/31/23 07:24 Blood Pressure 135/97 07/31/23 07:24 Pulse Oximetry 97 07/31/23 07:24 Oxygen Delivery Me thod Room Air 07/31/23 06:44 MDM - Abdominal Pain Medical Decision Making The patient's alcohol level is 270. His CBC is essentially normal, with platelets increasing from 35 on last hospital discharge to now 500. BMP is not remarkable. Liver enzymes show mild elevation. Bilirubin is 2.5. This is down from 4.7 prior to last discharge. Lipase is 12. Tachycardia is improved after administration of Haldol. He will receive 2 L of IV fluid. Given improvement in platelet count, lipase, bilirubin, I am otherwise disinclined to admit this patient, as His clinical status appears improved. Lab Data 07/31/23 03:26 07/31/23 03:26 Labs/Radiology: Laboratory Results WBC 6.15 10^3/uL (3.29-11.43) 07/31/23 03:26 RBC 4.50 10^6/uL (3.85-5.65) 07/31/23 03:26 Hgb 15.40 g/dL (11.27-16.99) 07/31/23 03:26 Hct 44.0 % (37-53) 07/31/23 03:26 MCV 97.8 fl (82-101) 07/31/23 03:26 MCH 34.2 pg (27-33) H 07/31/23 03:26 MCHC 35.0 g/dL (30-55) 07/31/23 03:26 RDW 13.5 % (12.1-15.1) 07/31/23 03:26 Plt Count 504 10^3/cmm (157-399) H 07/31/23 03:26 MPV 10.1 fL (7.4-10.4) 07/31/23 03:26 Neut % (Auto) 59.5 % 07/31/23 03:26 Lymph % (Auto) 31.2 % 07/31/23 03:26 [place] % (Auto) 7.3 % 07/31/23 03:26 Eos % (Auto) 0.2 % 07/31/23 03:26 Baso % (Auto) 1.5 % 07/31/23 03:26 Neut # (Auto) 3.66 10^3/uL (1.8-7.7) 07/31/23 03:26 Lymph # (Auto) 1.9 10^3/uL (0.8-4.8) 07/31/23 03:26 [place] # (Auto) 0.5 10^3/uL (0.2-0.9) 07/31/23 03:26 Eos # (Auto) 0.0 10^3/uL (0.0-0.8) 07/31/23 03:26 Baso # (Auto) 0.1 10^3/uL (0.0-0.1) 07/31/23 03:26 Nucleated RBC % (auto) 0 % 07/31/23 03:26 Nucleated RBCs # 0.0 /100WBC 07/31/23 03:26 PT 13.90 SECONDS (12.1-14.9) 07/31/23 03:26 INR 1.03 (0.8-1.2) 07/31/23 03:26 Sodium 137 mmol/L (136-145) 07/31/23 03:26 Potassium 4.0 mmol/L (3.5-5.1) 07/31/23 03:26 Chloride 94 mmol/L (98-107) L 07/31/23 03:26 Carbon Dioxide 21 mmol/L (22-29) L 07/31/23 03:26 Anion Gap 26.0 (5-19) H 07/31/23 03:26 BUN 4 mg/dL (6-20) L 07/31/23 03:26 Creatinine 0.5 mg/dL (0.7-1.2) L 07/31/23 03:26 GFR Calculation 191.5 mL/min (90-130) H 07/31/23 03:26 Glucose 117 mg/dL (65-115) H 07/31/23 03:26 Calculated Osmolality 282 mOsm/kg (285-295) L 07/31/23 03:26 Lactic Acid 3.9 mmol/L (0.5-2.2) H 07/31/23 06:29 Calcium 9.4 mg/dL (8.5-10.5) 07/31/23 03:26 Magnesium 1.7 mg/dL (1.7-2.3) 07/31/23 03:26 Total Bilirubin 2.5 mg/dL (0.15-1.2) H 07/31/23 03:26 AST 304 U/L (0-40) H 07/31/23 03:26 ALT 170 U/L (0-41) H 07/31/23 03:26 Alkaline Phosphatase 230 U/L (40-130) H 07/31/23 03:26 Ammonia 22 umol/L (16-60) 07/31/23 04:57 C-Reactive Protein 3.6 mg/L (0.0-4.9) 07/31/23 03:26 Total Protein 8.1 g/dL (6.6-8.7) 07/31/23 03:26 Albumin 4.4 g/dL (3.5-5.2) 07/31/23 03:26 Globulin 3.7 g/dL (1.3-4.6) 07/31/23 03:26 Lipase 12 U/L (13-60) L 07/31/23 03:26 Urine Opiates Screen Positive ng/mL (Negative) H 07/31/23 06:36 Ur Barbiturates Screen Negative ng/mL (Negative) 07/31/23 06:36 Ur Phencyclidine Scrn Negative ng/mL (Negative) 07/31/23 06:36 Ur Amphetamines Screen Negative ng/mL (Negative) 07/31/23 06:36 U Benzodiazepines Scrn Positive ng/mL (Negative) H 07/31/23 06:36 Urine Cocaine Screen Negative ng/mL (Negative) 07/31/23 06:36 U Marijuana (THC) Screen Negative ng/mL (Negative) 07/31/23 06:36 Ethyl Alcohol 270 mg/dL (0-10) H 07/31/23 03:26 All radiology interpretation(s) finalized by discharge Discharge Plan Discharge Patient Disposition: Home Clinical Impression: Acute alcohol intoxication, Alcohol abuse, Dehydration, Alcoholic hepatitis, Alcoholic gastritis Condition: Stable Prescriptions: New ondansetron 4 mg film 4 mg PO DAILY PRN (Reason: nausea and vomiting) Qty: 10 0RF Prevacid 30 mg capsule,delayed release(DR/EC) 30 mg PO DAILY Qty: 30 0RF No Action resveratrol 250 mg capsule 250 - 500 mg PO DAILY PRN (Reason: Inflammation) mirtazapine 15 mg tablet 15 mg PO BEDTIME Qty: 30 0RF loratadine 10 mg tablet 10 mg PO DAILY Qty: 30 1RF ondansetron 4 mg tablet,disintegrating 4 mg PO Q6H PRN (Reason: nausea and vomiting) Qty: 60 1RF gabapentin 100 mg capsule 100 mg PO TID Qty: 30 0RF trazodone 50 mg tablet 25 mg PO BEDTIME PRN (Reason: Sleep) Qty: 45 0RF clonidine HCl 0.1 mg tablet 0.1 mg PO BID Qty: 60 0RF lisinopril 40 mg Tablet 40 mg PO QAM Hold Instructions: Resume on 06/28/23. magnesium hydroxide [Milk of Magnesia] 400 mg/5 mL Suspension 30 ml PO BID PRN (Reason: Constipation) vitamin B complex Tablet 1 tab PO DAILY PRN (Reason: UNKNOWN) Super Enzyme [phone] mg Capsule 1 cap PO .UP TO TID PRN (Reason: UNKNOWN) Pancreatin 2000 1 cap PO .UP TO TID PRN (Reason: UNKNOWN) metoprolol tartrate 100 mg Tablet 100 mg PO BID metoclopramide HCl [Reglan] 10 mg tablet 10 mg PO Q6H PRN (Reason: nausea and vomiting) Qty: 30 0RF Nu-Salt See Rx Instructions .ROUTE .COMPLEX Rx Instructions: prn sucralfate 100 mg/mL suspension 10 ml PO TID Qty: 1000 0RF Discharge Orders: Discharge ED (Routine); Ordered 08/04/23 Ordered By: Nathan Hobson Referrals: Antonio Alvarado MD [Primary Care Provider] - 1-3 days Patient Instructions: Gastritis (ED), Opioid Safety, Pain Management Activity Restrictions/Additional Instructions: Abstain from alcohol. Medication as directed. Follow-up with your doctor. Coding Level of Care Code ED Health Program Analyst for [facility]
[2023-07-31] MEDS: LORazepam 2 mg/mL INJ 1 mL IVP (05:02)
[2023-07-31] MEDS: HYDROmorphone 1 mg/mL INJ 1 mL IVP (05:04)
[2023-07-31 05:22] LABS: Ammonia 22 umol/L (16-60)
[2023-07-31 05:23] LABS: Lactic Sepsis W/Reflex 7.3 mmol/L (0.5-2.2)
[2023-07-31 06:06] VITALS: BP 128/95; PULSE 102; RESP 15; O2SAT 95
[2023-07-31] MEDS: dextrose 5%-lactated ringers 1,000 ML 150 ML IV (06:42)
[2023-07-31 06:44] VITALS: BP 141/105; PULSE 106; RESP 21; O2SAT 93
[2023-07-31 06:48] LABS: Reflex Lactate Order REFLEX LACTIC ORDERD
[2023-07-31 06:50] LABS: Lactic Sepsis W/Reflex 3.9 mmol/L (0.5-2.2)
[2023-07-31 06:51] LABS: Amphetamines Screen Urine Negative (Negative); Barbiturates Screen Urine Negative (Negative); Benzodiazepines Screen Urine Positive (Negative); Cocaine Screen Urine Negative (Negative); Opiate Screen Urine Positive (Negative); PCP Screen Urine Negative (Negative); THC Screen Urine Negative (Negative)
[2023-07-31 07:24] VITALS: BP 135/97; PULSE 110; RESP 24; O2SAT 97
[2023-07-31 08:19] LABS: Reflex Lactate Order REFLEX LACTIC ORDERD
== END 2023-07-31 07:25 | disposition home or self-care (01) ==
PROVIDERS: Emergency Provider Emergency Medicine; PCP Family Medicine Adult Medicine
DX: F10.129 Alcohol abuse with intoxication, unspecified (principal); E86.0 Dehydration; K70.10 Alcoholic hepatitis without ascites; K29.20 Alcoholic gastritis without bleeding; Y90.8 Blood alcohol level of 240 mg/100 ml or more; E78.5 Hyperlipidemia, unspecified; I10 Essential (primary) hypertension
CPT/HCPCS: 36415; 80053; 80306; 80307; 82140; 83605; 83690; 83735; 85025; 85610; 86140; 96361; 96374; 96375; 99284; J1170; J1630; J2060; J7030; J7121

== ENCOUNTER 2023-08-02 05:05 | Emergency (ER) | payer MEDICAID, SELFPAY ==
[2023-08-02 05:06] VITALS: BP 142/105; PULSE 105; RESP 18; TEMP 37.1; O2SAT 96; BMI 24.4
--- NOTE | 2023-08-02 05:13 | W.ED.AMS ---
Documented by User: Keo Pelaez DO 08/02/23 05:18 HPI - Altered Mental Status General: Chief Complaint: Altered Mental Status Stated Complaint: AMS Time Seen by Provider: 08/02/23 05:11 History of Present Illness: patient presents to the ER by EMS with complaints of increasing altered mental status. Patient was seen in the ER couple days ago for acute alcohol intoxication. Patient admits to binge drinking today. He has had about 300 mL of gin. Patient is alert oriented talking coherently and does appear to be intoxicated but in his right min And answers questions appropriately. Review of Systems General: Reports: 10 or more systems reviewed and unremarkable except in HPI and below PFSH ED PFSH: Medical History Acute on chronic pancreatitis Acute posttraumatic stress disorder Alcohol abuse Anxiety and depression Chronic nasal congestion Chronic nausea GERD (gastroesophageal reflux disease) Gynecomastia, male Hyperlipidemia Hypertension Panic attack Transaminitis Surgical History No pertinent past surgical history Family History Father Hypertension Social History Smoking and tobacco/nicotine status: never used tobacco/nicotine Alcohol intake: current Alcohol intake frequency: 0-2 Drinks per Day Substance/Drug Use: never Marital status: Number of children: 5 Current occupational status: employed Current gender identity: Male Physical Exam Const: COMMON NORMALS: no acute distress, average body habitus, patient oriented x3, no limitations, healthy appearing, alert and well nourished HENMT: COMMON NORMALS: normocephalic, atraumatic, hearing grossly normal bilaterally, external ears normal, Normal external nose present, moist oral mucous membranes and oropharynx normal HEAD & SCALP: normocephalic and atraumatic NOSE: Normal external nose present EXTERNAL EAR: Yes external ears normal Neck/C-Spine: COMMON NORMALS: no JVD Chest: COMMONS NORMALS: normal inspection of the chest and normal palpation of entire chest wall Resp: COMMON NORMALS: normal respiratory effort, No retractions, No use of accessory muscles and clear to auscultation bilaterally AUSCULTATION: clear to auscultation bilaterally Cardio: COMMON NORMALS: no JVD, regular rate, regular rhythm, S1 normal heart sound present, S2 normal heart sound present, No gallops present (Cardio), No clicks present (Cardio), No murmurs present (Cardio) and No rub (Cardio) RATE: regular rate RHYTHM: regular rhythm HEART SOUNDS: S1 normal heart sound present and S2 normal heart sound present GI: COMMON NORMALS: Normal to inspection, nondistended, normoactive bowel sounds present, Soft to palpation, non-tender, No hepatosplenomegaly present and no masses PALPATION: Yes Soft to palpation and Yes No hepatosplenomegaly present : COMMON NORMALS: Yes no CVA tenderness BLADDER/KIDNEY EXAM: Yes no CVA tenderness Back/Pelvis: COMMON NORMALS: no CVA tenderness Neuro: COMMON NORMALS: patient oriented x3 SENSORIUM/ORIENTATION: Yes alert Course Vital Signs: Vital signs: Vital Signs Temperature 98.7 F 08/02/23 05:06 Pulse Rate 117 H 08/02/23 06:27 Respiratory Rate 16 08/02/23 06:27 Blood Pressure 127/96 08/02/23 06:27 Pulse Oximetry 97 08/02/23 06:27 Oxygen Delivery Me thod Room Air 08/02/23 05:33 MDM - Altered Mental Status Differential Diagnosis Likely alcoholic intoxication; Unlikely altered mental status, delirium, dementia, hypoglycemia, hyponatremia, subarachnoid hemorrhage or sepsis Medical Records I reviewed the patient's medical records. Lab Data I reviewed the patient's lab results. 08/02/23 05:14 08/02/23 05:14 Laboratory Results WBC 5.19 10^3/uL (3.29-11.43) 08/02/23 05:14 RBC 4.12 10^6/uL (3.85-5.65) 08/02/23 05:14 Hgb 14.00 g/dL (11.27-16.99) 08/02/23 05:14 Hct 41.9 % (37-53) 08/02/23 05:14 MCV 101.7 fl (82-101) H 08/02/23 05:14 MCH 34.0 pg (27-33) H 08/02/23 05:14 MCHC 33.4 g/dL (30-55) 08/02/23 05:14 RDW 13.3 % (12.1-15.1) 08/02/23 05:14 Plt Count 284 10^3/cmm (157-399) 08/02/23 05:14 MPV 9.6 fL (7.4-10.4) 08/02/23 05:14 Neut % (Auto) 53.5 % 08/02/23 05:14 Lymph % (Auto) 39.5 % 08/02/23 05:14 [place] % (Auto) 5.2 % 08/02/23 05:14 Eos % (Auto) 0.6 % 08/02/23 05:14 Baso % (Auto) 0.8 % 08/02/23 05:14 Neut # (Auto) 2.78 10^3/uL (1.8-7.7) 08/02/23 05:14 Lymph # (Auto) 2.1 10^3/uL (0.8-4.8) 08/02/23 05:14 [place] # (Auto) 0.3 10^3/uL (0.2-0.9) 08/02/23 05:14 Eos # (Auto) 0.0 10^3/uL (0.0-0.8) 08/02/23 05:14 Baso # (Auto) 0.0 10^3/uL (0.0-0.1) 08/02/23 05:14 Nucleated RBC % (auto) 0 % 08/02/23 05:14 Nucleated RBCs # 0.0 /100WBC 08/02/23 05:14 Sodium 143 mmol/L (136-145) 08/02/23 05:14 Potassium 3.9 mmol/L (3.5-5.1) 08/02/23 05:14 Chloride 101 mmol/L (98-107) 08/02/23 05:14 Carbon Dioxide 26 mmol/L (22-29) 08/02/23 05:14 Anion Gap 19.9 (5-19) H 08/02/23 05:14 BUN 4 mg/dL (6-20) L 08/02/23 05:14 Creatinine 0.5 mg/dL (0.7-1.2) L 08/02/23 05:14 GFR Calculation 191.5 mL/min (90-130) H 08/02/23 05:14 Glucose 98 mg/dL (65-115) 08/02/23 05:14 POC Glucose 86 mg/dL (70-110) 08/02/23 05:10 Calculated Osmolality 293 mOsm/kg (285-295) 08/02/23 05:14 Calcium 8.8 mg/dL (8.5-10.5) 08/02/23 05:14 Magnesium 1.8 mg/dL (1.7-2.3) 08/02/23 05:14 Total Bilirubin 2.1 mg/dL (0.15-1.2) H 08/02/23 05:14 AST 302 U/L (0-40) H 08/02/23 05:14 ALT 162 U/L (0-41) H 08/02/23 05:14 Alkaline Phosphatase 218 U/L (40-130) H 08/02/23 05:14 Total Protein 7.6 g/dL (6.6-8.7) 08/02/23 05:14 Albumin 4.1 g/dL (3.5-5.2) 08/02/23 05:14 Globulin 3.5 g/dL (1.3-4.6) 08/02/23 05:14 Urine Color Yellow (Yellow) 08/02/23 05:15 Urine Appearance Clear (CLEAR) 08/02/23 05:15 Urine pH 6 (5-7) 08/02/23 05:15 Ur Specific [place] 1.010 (1.005-1.030) 08/02/23 05:15 Urine Protein Neg (Negative) 08/02/23 05:15 Urine Glucose (UA) Norm (Normal) 08/02/23 05:15 Urine Ketones Negative (Negative) 08/02/23 05:15 Urine Blood Neg (Negative) 08/02/23 05:15 Urine Nitrate Negative (Negative) 08/02/23 05:15 Urine Bilirubin Neg (Negative) 08/02/23 05:15 Urine Urobilinogen Neg mg/dL (Negative) 08/02/23 05:15 Ur Leukocyte Esterase Negative (Negative) 08/02/23 05:15 Ethyl Alcohol 444 mg/dL (0-10) H* 08/02/23 05:14 No radiology studies performed this visit Discharge Plan Discharge Patient Disposition: Home Clinical Impression: Alcoholic intoxication Condition: Stable Prescriptions: No Action resveratrol 250 mg capsule 250 - 500 mg PO DAILY PRN (Reason: Inflammation) mirtazapine 15 mg tablet 15 mg PO BEDTIME Qty: 30 0RF loratadine 10 mg tablet 10 mg PO DAILY Qty: 30 1RF ondansetron 4 mg tablet,disintegrating 4 mg PO Q6H PRN (Reason: nausea and vomiting) Qty: 60 1RF gabapentin 100 mg capsule 100 mg PO TID Qty: 30 0RF trazodone 50 mg tablet 25 mg PO BEDTIME PRN (Reason: Sleep) Qty: 45 0RF clonidine HCl 0.1 mg tablet 0.1 mg PO BID Qty: 60 0RF lisinopril 40 mg Tablet 40 mg PO QAM Hold Instructions: Resume on 06/28/23. magnesium hydroxide [Milk of Magnesia] 400 mg/5 mL Suspension 30 ml PO BID PRN (Reason: Constipation) vitamin B complex Tablet 1 tab PO DAILY PRN (Reason: UNKNOWN) Super Enzyme [phone] mg Capsule 1 cap PO .UP TO TID PRN (Reason: UNKNOWN) Pancreatin 2000 1 cap PO .UP TO TID PRN (Reason: UNKNOWN) metoprolol tartrate 100 mg Tablet 100 mg PO BID metoclopramide HCl [Reglan] 10 mg tablet 10 mg PO Q6H PRN (Reason: nausea and vomiting) Qty: 30 0RF Nu-Salt See Rx Instructions .ROUTE .COMPLEX Rx Instructions: prn sucralfate 100 mg/mL suspension 10 ml PO TID Qty: 1000 0RF ondansetron 4 mg film 4 mg PO DAILY PRN (Reason: nausea and vomiting) Qty: 10 0RF Prevacid 30 mg capsule,delayed release(DR/EC) 30 mg PO DAILY Qty: 30 0RF Discharge Orders: Discharge ED (Routine); Ordered 08/02/23 Ordered By: Yamil Sharif Referrals: Antonio Alvarado MD [Primary Care Provider] - 1-3 days Discharge Diet: Advance as tolerated Discharge Activity: Resume usual activity Patient Instructions: Alcohol Intoxication (ED) Coding Level of Care Code ED Flat Examiner for Chg Fwd Documented by User: Yamil Sharif MD 08/02/23 06:34 HPI - Altered Mental Status General: Chief Complaint: Altered Mental Status Stated Complaint: AMS Time Seen by Provider: 08/02/23 05:11 PFSH ED PFSH: Medical History Acute on chronic pancreatitis Acute posttraumatic stress disorder Alcohol abuse Anxiety and depression Chronic nasal congestion Chronic nausea GERD (gastroesophageal reflux disease) Gynecomastia, male Hyperlipidemia Hypertension Panic attack Transaminitis Surgical History No pertinent past surgical history Family History Father Hypertension Social History Smoking and tobacco/nicotine status: never used tobacco/nicotine Alcohol intake: current Alcohol intake frequency: 0-2 Drinks per Day Substance/Drug Use: never Marital status: Number of children: 5 Current occupational status: employed Current gender identity: Male Course Vital Signs: Vital signs: Vital Signs Temperature 98.7 F 08/02/23 05:06 Pulse Rate 117 H 08/02/23 06:27 Respiratory Rate 16 08/02/23 06:27 Blood Pressure 127/96 08/02/23 06:27 Pulse Oximetry 97 08/02/23 06:27 Oxygen Delivery Me thod Room Air 08/02/23 05:33 MDM - Altered Mental Status Medical Decision Making Patient presents with alcohol intoxication he is a chronic alcoholic he is able to ambulate here his came and picked him up he is stable for discharge Lab Data 08/02/23 05:14 08/02/23 05:14 Laboratory Results WBC 5.19 10^3/uL (3.29-11.43) 08/02/23 05:14 RBC 4.12 10^6/uL (3.85-5.65) 08/02/23 05:14 Hgb 14.00 g/dL (11.27-16.99) 08/02/23 05:14 Hct 41.9 % (37-53) 08/02/23 05:14 MCV 101.7 fl (82-101) H 08/02/23 05:14 MCH 34.0 pg (27-33) H 08/02/23 05:14 MCHC 33.4 g/dL (30-55) 08/02/23 05:14 RDW 13.3 % (12.1-15.1) 08/02/23 05:14 Plt Count 284 10^3/cmm (157-399) 08/02/23 05:14 MPV 9.6 fL (7.4-10.4) 08/02/23 05:14 Neut % (Auto) 53.5 % 08/02/23 05:14 Lymph % (Auto) 39.5 % 08/02/23 05:14 [place] % (Auto) 5.2 % 08/02/23 05:14 Eos % (Auto) 0.6 % 08/02/23 05:14 Baso % (Auto) 0.8 % 08/02/23 05:14 Neut # (Auto) 2.78 10^3/uL (1.8-7.7) 08/02/23 05:14 Lymph # (Auto) 2.1 10^3/uL (0.8-4.8) 08/02/23 05:14 [place] # (Auto) 0.3 10^3/uL (0.2-0.9) 08/02/23 05:14 Eos # (Auto) 0.0 10^3/uL (0.0-0.8) 08/02/23 05:14 Baso # (Auto) 0.0 10^3/uL (0.0-0.1) 08/02/23 05:14 Nucleated RBC % (auto) 0 % 08/02/23 05:14 Nucleated RBCs # 0.0 /100WBC 08/02/23 05:14 Sodium 143 mmol/L (136-145) 08/02/23 05:14 Potassium 3.9 mmol/L (3.5-5.1) 08/02/23 05:14 Chloride 101 mmol/L (98-107) 08/02/23 05:14 Carbon Dioxide 26 mmol/L (22-29) 08/02/23 05:14 Anion Gap 19.9 (5-19) H 08/02/23 05:14 BUN 4 mg/dL (6-20) L 08/02/23 05:14 Creatinine 0.5 mg/dL (0.7-1.2) L 08/02/23 05:14 GFR Calculation 191.5 mL/min (90-130) H 08/02/23 05:14 Glucose 98 mg/dL (65-115) 08/02/23 05:14 POC Glucose 86 mg/dL (70-110) 08/02/23 05:10 Calculated Osmolality 293 mOsm/kg (285-295) 08/02/23 05:14 Calcium 8.8 mg/dL (8.5-10.5) 08/02/23 05:14 Magnesium 1.8 mg/dL (1.7-2.3) 08/02/23 05:14 Total Bilirubin 2.1 mg/dL (0.15-1.2) H 08/02/23 05:14 AST 302 U/L (0-40) H 08/02/23 05:14 ALT 162 U/L (0-41) H 08/02/23 05:14 Alkaline Phosphatase 218 U/L (40-130) H 08/02/23 05:14 Total Protein 7.6 g/dL (6.6-8.7) 08/02/23 05:14 Albumin 4.1 g/dL (3.5-5.2) 08/02/23 05:14 Globulin 3.5 g/dL (1.3-4.6) 08/02/23 05:14 Urine Color Yellow (Yellow) 08/02/23 05:15 Urine Appearance Clear (CLEAR) 08/02/23 05:15 Urine pH 6 (5-7) 08/02/23 05:15 Ur Specific [place] 1.010 (1.005-1.030) 08/02/23 05:15 Urine Protein Neg (Negative) 08/02/23 05:15 Urine Glucose (UA) Norm (Normal) 08/02/23 05:15 Urine Ketones Negative (Negative) 08/02/23 05:15 Urine Blood Neg (Negative) 08/02/23 05:15 Urine Nitrate Negative (Negative) 08/02/23 05:15 Urine Bilirubin Neg (Negative) 08/02/23 05:15 Urine Urobilinogen Neg mg/dL (Negative) 08/02/23 05:15 Ur Leukocyte Esterase Negative (Negative) 08/02/23 05:15 Ethyl Alcohol 444 mg/dL (0-10) H* 08/02/23 05:14 Discharge Plan Discharge Patient Disposition: Home Clinical Impression: Alcoholic intoxication Condition: Stable Prescriptions: No Action resveratrol 250 mg capsule 250 - 500 mg PO DAILY PRN (Reason: Inflammation) mirtazapine 15 mg tablet 15 mg PO BEDTIME Qty: 30 0RF loratadine 10 mg tablet 10 mg PO DAILY Qty: 30 1RF ondansetron 4 mg tablet,disintegrating 4 mg PO Q6H PRN (Reason: nausea and vomiting) Qty: 60 1RF gabapentin 100 mg capsule 100 mg PO TID Qty: 30 0RF trazodone 50 mg tablet 25 mg PO BEDTIME PRN (Reason: Sleep) Qty: 45 0RF clonidine HCl 0.1 mg tablet 0.1 mg PO BID Qty: 60 0RF lisinopril 40 mg Tablet 40 mg PO QAM Hold Instructions: Resume on 06/28/23. magnesium hydroxide [Milk of Magnesia] 400 mg/5 mL Suspension 30 ml PO BID PRN (Reason: Constipation) vitamin B complex Tablet 1 tab PO DAILY PRN (Reason: UNKNOWN) Super Enzyme [id number] mg Capsule 1 cap PO .UP TO TID PRN (Reason: UNKNOWN) Pancreatin 2000 1 cap PO .UP TO TID PRN (Reason: UNKNOWN) metoprolol tartrate 100 mg Tablet 100 mg PO BID metoclopramide HCl [Reglan] 10 mg tablet 10 mg PO Q6H PRN (Reason: nausea and vomiting) Qty: 30 0RF Nu-Salt See Rx Instructions .ROUTE .COMPLEX Rx Instructions: prn sucralfate 100 mg/mL suspension 10 ml PO TID Qty: 1000 0RF ondansetron 4 mg film 4 mg PO DAILY PRN (Reason: nausea and vomiting) Qty: 10 0RF Prevacid 30 mg capsule,delayed release(DR/EC) 30 mg PO DAILY Qty: 30 0RF Discharge Orders: Discharge ED (Routine); Ordered 08/02/23 Ordered By: Yamil Sharif Referrals: Antonio Alvarado MD [Primary Care Provider] - 1-3 days Discharge Diet: Advance as tolerated Discharge Activity: Resume usual activity Patient Instructions: Alcohol Intoxication (ED) Coding Level of Care Code ED Flat Examiner for Al Duran
[2023-08-02 05:19] LABS: Basophils % 0.8 %; Eosinophils % 0.6 %; Hematocrit 41.9 % (37-53); Lymphocytes # 2.1 10^3/uL (0.8-4.8); Lymphocytes % 39.5 %; Mean Corpuscular HGB Conc 33.4 g/dL (30-55); Mean Corpuscular Volume 101.7 fl (82-101); Mean Platelet Volume 9.6 fL (7.4-10.4); Monocytes # 0.3 10^3/uL (0.2-0.9); Monocytes % 5.2 %; Neutrophils # 2.78 10^3/uL (1.8-7.7); Neutrophils % 53.5 %; Nucleated Red Blood Cells % 0 %; Platelet Count 284 10^3/cmm (157-399); Red Blood Count 4.12 10^6/uL (3.85-5.65); Red Cell Distribution Width 13.3 % (12.1-15.1); White Blood Count 5.19 10^3/uL (3.29-11.43)
[2023-08-02 05:25] LABS: Glucose Point of Care 86 mg/dL (70-110)
[2023-08-02 05:25] LABS: Add Urine Microscopic? NO
[2023-08-02 05:26] LABS: Bilirubin Urine Neg (Negative); Blood Urine Neg (Negative); Charge for UA Resulting for Rev; Glucose Urine UA Norm (Normal); Ketones Urine Negative (Negative); Leukocyte Esterase Urine Negative (Negative); Nitrate Urine Negative (Negative); Protein Urine Neg (Negative); Urine Appearance Clear (CLEAR); Urine Color Yellow (Yellow); Urobilinogen Urine Neg (Negative); pH Urine 6 (5-7)
[2023-08-02 05:33] VITALS: BP 138/99; PULSE 124; RESP 19; O2SAT 96
[2023-08-02 05:38] LABS: Alanine Aminotransferase 162 U/L (0-41); Albumin Level 4.1 g/dL (3.5-5.2); Alkaline Phosphatase 218 U/L (40-130); Anion Gap 19.9 (5-19); Aspartate Amino Transferase 302 U/L (0-40); Blood Urea Nitrogen 4 mg/dL (6-20); Calcium 8.8 mg/dL (8.5-10.5); Carbon Dioxide 26 mmol/L (22-29); Chloride 101 mmol/L (98-107); Globulin 3.5 g/dL (1.3-4.6); Glomerular Filtration Rate 191.5 mL/min (90-130); Glucose 98 mg/dL (65-115); Magnesium 1.8 mg/dL (1.7-2.3); Osmolality Calculated 293 mOsm/kg (285-295); Potassium 3.9 mmol/L (3.5-5.1); Sodium 143 mmol/L (136-145); Total Bilirubin 2.1 mg/dL (0.15-1.2); Total Protein 7.6 g/dL (6.6-8.7)
[2023-08-02 05:39] LABS: Alcohol Level 444 mg/dL (0-10)
[2023-08-02] MEDS: sodium chloride 0.9% 1,000 ML 999 ML IV ×2 (05:44→06:20)
--- NOTE | 2023-08-02 05:44 | PC.NURSE ---
pt states he drank 300 mL of gin.
[2023-08-02 06:27] VITALS: BP 127/96; PULSE 117; RESP 16; O2SAT 97
== END 2023-08-02 06:29 | disposition home or self-care (01) ==
PROVIDERS: Emergency Medicine; Emergency Provider Emergency Medicine; PCP Family Medicine Adult Medicine
DX: F10.129 Alcohol abuse with intoxication, unspecified (principal); Y90.8 Blood alcohol level of 240 mg/100 ml or more; E78.5 Hyperlipidemia, unspecified; I10 Essential (primary) hypertension
CPT/HCPCS: 36416; 80053; 80307; 81003; 82962; 83735; 85025; 96360; 99284; J7030

== ENCOUNTER 2023-08-03 07:26 | Emergency (ER) | payer MEDICAID, SELFPAY ==
[2023-08-03 07:28] VITALS: BP 137/102; PULSE 120; RESP 18; O2SAT 97
[2023-08-03 07:38] VITALS: BP 137/102; PULSE 118; RESP 16; TEMP 36.9; O2SAT 95
--- NOTE | 2023-08-03 07:52 | XR_ITS ---
WS: [id number] Exam: XR chest 1V portable [id number] Date/Time of Exam: 08/03/2023 7:52 AM Reason For Exam: dyspnea/cough Comparison 07/08/2023. Findings: The lungs are clear and fully expanded. Costophrenic angles are sharp. No infiltrates. Bronchovascula r relief appears normal. Cardiac silhouette is unremarkable. Bony elements are intact. IMPRESSION: Unremarkable chest radiograph.
[2023-08-03] MEDS: sodium chloride 0.9% 1,000 ML 999 ML IV (07:56)
[2023-08-03] MEDS: ondansetron 2 mg/ML SDV 2 mL 4 MG IVP (07:56)
[2023-08-03] MEDS: pantoprazole 40 mg SDV IVP (07:57)
[2023-08-03 08:00] LABS: Basophils % 0.5 %; Eosinophils % 0.2 %; Hematocrit 40.2 % (37-53); Lymphocytes # 2.9 10^3/uL (0.8-4.8); Lymphocytes % 48.2 %; Mean Corpuscular HGB Conc 34.1 g/dL (30-55); Mean Corpuscular Volume 99.8 fl (82-101); Mean Platelet Volume 9.7 fL (7.4-10.4); Monocytes # 0.3 10^3/uL (0.2-0.9); Monocytes % 4.9 %; Neutrophils # 2.81 10^3/uL (1.8-7.7); Nucleated Red Blood Cells % 0 %; Platelet Count 262 10^3/cmm (157-399); Red Blood Count 4.03 10^6/uL (3.85-5.65); Red Cell Distribution Width 13.2 % (12.1-15.1)
[2023-08-03 08:14] LABS: Alanine Aminotransferase 141 U/L (0-41); Albumin Level 4.4 g/dL (3.5-5.2); Alkaline Phosphatase 205 U/L (40-130); Anion Gap 20.4 (5-19); Aspartate Amino Transferase 253 U/L (0-40); Blood Urea Nitrogen 3 mg/dL (6-20); Carbon Dioxide 25 mmol/L (22-29); Chloride 97 mmol/L (98-107); Globulin 3.2 g/dL (1.3-4.6); Glomerular Filtration Rate 191.5 mL/min (90-130); Glucose 99 mg/dL (65-115); Lipase 11 U/L (13-60); Osmolality Calculated 283 mOsm/kg (285-295); Potassium 4.4 mmol/L (3.5-5.1); Sodium 138 mmol/L (136-145); Total Protein 7.6 g/dL (6.6-8.7)
[2023-08-03 08:25] LABS: Blood Urine Neg (Negative); Glucose Urine UA Norm (Normal); Ketones Urine Negative (Negative); Protein Urine Neg (Negative); Specific Gravity, Urine 1.005 (1.005-1.030); Urine Appearance Clear (CLEAR); Urine Color Yellow (Yellow); pH Urine 5 (5-7)
[2023-08-03 08:26] LABS: Add Urine Culture? No; Add Urine Microscopic? YES; Bacteria Urine TRACE /hpf; Bilirubin Urine Neg (Negative); Leukocyte Esterase Urine Trace (Negative); Nitrate Urine Negative (Negative); RBC Urine RARE /hpf (0-2); Squamous Epithelial Cell Urine 0-4 /hpf (0-5); Urobilinogen Urine Neg (Negative); WBC Urine 0-4 /hpf (0-5)
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
== END 2023-08-03 08:47 | disposition left against medical advice (07) ==
PROVIDERS: Emergency Provider Family Medicine; PCP Family Medicine Adult Medicine
DX: K29.20 Alcoholic gastritis without bleeding (principal); F10.10 Alcohol abuse, uncomplicated; K92.0 Hematemesis; Z63.0 Problems in relationship with spouse or partner; I10 Essential (primary) hypertension; E78.5 Hyperlipidemia, unspecified
CPT/HCPCS: 71045; 80053; 81001; 83690; 85025; 96374; 96375; 99285; C9113; J2405; J7030

== ENCOUNTER 2023-08-06 06:08 | Inpatient (IN) | payer MEDICAID, SELFPAY ==
[2023-08-06] VITALS (39 sets, daily range): BP systolic 121–157; BP diastolic 74–111; PULSE 77–144; RESP 10–31; TEMP 36.6–37; O2SAT 91–100; BMI 31.1
--- NOTE | 2023-08-06 06:21 | W.ED.NAVMDI ---
HPI - Nausea/Vomiting/Diarrhea General: Chief complaint: Nausea/Vomiting/Diarrhea Stated complaint: ABD PAIN Time Seen by Provider: 08/06/23 06:09 History of Present Illness: 33-year-old male presents emergency department via EMS personnel with complaints of abdominal pain. He states that he drinks wine almost daily and last night he drank approximately 1 bottle of wine and then started having nausea vomiting abdominal pain. He states he does have chronic pancreatitis and was recently seen here in the emergency department for similar complaints. He states that 4 days ago he slipped and fell and hit the back of his head. He denies loss of consciousness at that time. He states that last night he has felt extremely dehydrated and has attempted to drink 10-12 bottles of water without success as he continues to repeatedly throw up. Patient states his abdominal pain is a 10 out of 10 sharp and stabbing in the epigastric region. He states that nothing makes it better nothing makes it worse. Associated nausea: Yes Associated symtoms: Reports anxiety and nausea Review of Systems General: Reports: 10 or more systems reviewed and unremarkable except in HPI and below GI: Reports: abdominal pain, nausea and vomiting Psych: Reports: anxiety and other (Alcohol abuse) [facility] PFSH: Medical History Acute on chronic pancreatitis Acute posttraumatic stress disorder Alcohol abuse Anxiety and depression Chronic nasal congestion Chronic nausea GERD (gastroesophageal reflux disease) Gynecomastia, male Hyperlipidemia Hypertension Panic attack Transaminitis Surgical History No pertinent past surgical history Family History Father Hypertension Social History Smoking and tobacco/nicotine status: never used tobacco/nicotine Alcohol intake: current Alcohol intake frequency: 0-2 Drinks per Day Substance/Drug Use: never Marital status: Number of children: 5 Current occupational status: employed Current gender identity: Male Physical Exam Const: COMMON NORMALS: no acute distress, patient oriented x3 and alert HENMT: COMMON NORMALS: normocephalic and moist oral mucous membranes HEAD & SCALP: normocephalic Eye: COMMON NORMALS: Equal, round and reactive pupils present and EOMs intact bilaterally PUPIL: Yes Equal, round and reactive pupils present Neck/C-Spine: COMMON NORMALS: full ROM, supple and no meningeal signs Resp: COMMON NORMALS: normal respiratory effort, No retractions and clear to auscultation bilaterally AUSCULTATION: clear to auscultation bilaterally Cardio: COMMON NORMALS: regular rate, regular rhythm, S1 normal heart sound present, S2 normal heart sound present and Peripheral pulses 2+ throughout RATE: regular rate RHYTHM: regular rhythm HEART SOUNDS: S1 normal heart sound present and S2 normal heart sound present PERIPHERAL PULSES: Peripheral pulses 2+ throughout GI: COMMON NORMALS: Normal to inspection, nondistended, normoactive bowel sounds present, Soft to palpation and non-tender PALPATION: Yes Soft to palpation : COMMON NORMALS: Yes no CVA tenderness BLADDER/KIDNEY EXAM: Yes no CVA tenderness Back/Pelvis: COMMON NORMALS: no CVA tenderness and thoracic and lumbar spine normal to inspection Extremity: COMMON NORMALS: normal to inspection, full ROM and capillary refill normal Neuro: COMMON NORMALS: patient oriented x3, CN's II-XII intact bilaterally, moves all extremities and no sensory deficits noted SENSORIUM/ORIENTATION: Yes alert MENINGEAL SIGNS: Yes no meningeal signs Psych: COMMON NORMALS: mental status grossly normal, Normal thought process present, cooperative and normal affect THOUGHT PROCESS: Normal thought process present Skin: COMMON NORMALS: turgor normal GENERAL SKIN EXAM: turgor normal Course Vital Signs: Vital signs: Vital Signs Temperature 97.9 F 08/06/23 06:09 Pulse Rate 138 H 08/06/23 06:23 Respiratory Rate 24 H 08/06/23 06:23 Blood Pressure 121/74 08/06/23 06:23 Pulse Oximetry 100 08/06/23 06:23 Oxygen Delivery Me thod Room Air 08/06/23 06:23 MDM - Nausea/Vomiting/Diarrhea Medical Decision Making Physical exam completed and documented, given the patient's longstanding history of pancreatitis and alcohol excess use I will obtain a lipase, CBC and a CMP as well as an alcohol level. I will provide him IV fluid rehydration via normal saline and a banana bag given his chronic alcohol use. I will provide him antinausea medication for his nausea and vomiting and a CT scan to evaluate his pancreas. I will reassess and treat accordingly once the laboratory findings are resulted. Lab Data 08/06/23 06:15 08/06/23 06:15 Radiology Impressions Abdomen/Pelvis CT 08/06/23 07:35 IMPRESSION: 1. Suggestive findings of gastritis. 2. Moderate hepatomegaly and severe hepatic steatosis. 3. Stable 2.3 cm right lobe liver mass since 11/29/2022. Imaging features are nonspecific. Recommend correlation with more remote prior imaging (not available currently). If a benign lesion cannot be unequivocally confirmed, then nonemergent liver MRI is recommended. 4. Mildly decreased subcutaneous edema in the upper right gluteal region since 07/08/2023. There is an associated 2.8 x 1.6 cm subcutaneous hematoma which is mildly increased in size since 07/08/2023. 5. Incidental findings above. Laboratory Results WBC 5.97 10^3/uL (3.29-11.43) 08/06/23 06:15 RBC 4.46 10^6/uL (3.85-5.65) 08/06/23 06:15 Hgb 15.10 g/dL (11.27-16.99) 08/06/23 06:15 Hct 42.1 % (37-53) 08/06/23 06:15 MCV 94.4 fl (82-101) 08/06/23 06:15 MCH 33.9 pg (27-33) H 08/06/23 06:15 MCHC 35.9 g/dL (30-55) 08/06/23 06:15 RDW 12.8 % (12.1-15.1) 08/06/23 06:15 Plt Count 200 10^3/cmm (157-399) 08/06/23 06:15 MPV 10.2 fL (7.4-10.4) 08/06/23 06:15 Neut % (Auto) 46.0 % 08/06/23 06:15 Lymph % (Auto) 44.1 % 08/06/23 06:15 [place] % (Auto) 7.2 % 08/06/23 06:15 Eos % (Auto) 2.0 % 08/06/23 06:15 Baso % (Auto) 0.5 % 08/06/23 06:15 Neut # (Auto) 2.75 10^3/uL (1.8-7.7) 08/06/23 06:15 Lymph # (Auto) 2.6 10^3/uL (0.8-4.8) 08/06/23 06:15 [place] # (Auto) 0.4 10^3/uL (0.2-0.9) 08/06/23 06:15 Eos # (Auto) 0.1 10^3/uL (0.0-0.8) 08/06/23 06:15 Baso # (Auto) 0.0 10^3/uL (0.0-0.1) 08/06/23 06:15 Nucleated RBC % (auto) 0 % 08/06/23 06:15 Nucleated RBCs # 0.0 /100WBC 08/06/23 06:15 Sodium 130 mmol/L (136-145) L 08/06/23 06:15 Potassium 4.1 mmol/L (3.5-5.1) 08/06/23 06:15 Chloride 84 mmol/L (98-107) L 08/06/23 06:15 Carbon Dioxide 19 mmol/L (22-29) L 08/06/23 06:15 Anion Gap 31.1 (5-19) H 08/06/23 06:15 BUN 7 mg/dL (6-20) 08/06/23 06:15 Creatinine 0.6 mg/dL (0.7-1.2) L 08/06/23 06:15 GFR Calculation 155.2 mL/min (90-130) H 08/06/23 06:15 Glucose 97 mg/dL (65-115) 08/06/23 06:15 Calculated Osmolality 268 mOsm/kg (285-295) L 08/06/23 06:15 Lactic Acid 7.1 mmol/L (0.5-2.2) H* 08/06/23 06:15 Lactic Acid (Sepsis) 5.9 mmol/L (0.5-2.2) H* 08/06/23 09:07 Calcium 9.8 mg/dL (8.5-10.5) 08/06/23 06:15 Total Bilirubin 3.2 mg/dL (0.15-1.2) H 08/06/23 06:15 AST 257 U/L (0-40) H 08/06/23 06:15 ALT 125 U/L (0-41) H 08/06/23 06:15 Alkaline Phosphatase 243 U/L (40-130) H 08/06/23 06:15 Total Protein 8.3 g/dL (6.6-8.7) 08/06/23 06:15 Albumin 4.9 g/dL (3.5-5.2) 08/06/23 06:15 Globulin 3.4 g/dL (1.3-4.6) 08/06/23 06:15 Lipase 20 U/L (13-60) 08/06/23 06:15 Procalcitonin 0.29 ng/mL (0-0.5) 08/06/23 06:15 Ethyl Alcohol 194 mg/dL (0-10) H 08/06/23 06:15 All radiology interpretation(s) finalized by discharge ED provider radiology interpretation(s): CT ABD/Pelvis /w IV contrast: COMPARISON: 1. ? CT abdomen pelvis w con* [id number] 11/29/2022 6:49 PM 2. ? CT abdomen pelvis w con* [id number] 07/08/2023 3:09 PM 3. ? CT abdomen pelvis w con* [id number] 04/27/2023 11:12 AM RADIATION DOSE METRICS: Total DLP (mGy-cm): 598.69 FINDINGS: Lungs: Lung bases are clear. Liver: The liver is moderately enlarged. There is diffuse low-attenuation of the liver relative to the spleen consistent with fatty infiltration. There is a lobulated 2.3 x 2.0 cm enhancing mass in the inferior right lobe of the liver, stable since 11/29/2022. Gallbladder and bile ducts: The gallbladder is normal. There is no biliary dilation. Pancreas: The pancreas is unremarkable. Spleen: The spleen is unremarkable. Adrenal glands: The adrenal glands are unremarkable. Kidneys and ureters: The kidneys are unremarkable. No hydronephrosis or stones. No ureteral dilation. Stomach and bowel: The stomach is decompressed, preventing meaningful evaluation of wall thickness. The small bowel is nondilated. The colon is unremarkable. There is mild thickening of gastric rugae at the fundus. Appendix: The appendix is normal. Intraperitoneal space: There is no free air or significant intraperitoneal free fluid. Vasculature: The aorta is unremarkable. There is no aneurysm. The portal, splenic and superior mesenteric veins are patent. Lymph nodes: There is no lymphadenopathy in the retroperitoneum, mesentery, pelvis or inguinal regions. Urinary bladder: The urinary bladder is unremarkable. Reproductive: The prostate and seminal vesicles are unremarkable. Bones/joints: There are healed fractures of the right anterolateral 6th through 8th ribs. The lumbar spine, pelvis and proximal femora are intact. Soft tissues: Subcutaneous edema in the right upper gluteal region is mildly decreased since 07/08/2023. There is a 2.8 x 1.6 cm subcutaneous hematoma in the medial upper right gluteal region which is mildly increased since 07/08/2023. The abdominal wall is intact. CT/CT abdomen pelvis w con* [id number] IMPRESSION: 1. ? Suggestive findings of gastritis. 2. ? Moderate hepatomegaly and severe hepatic steatosis. 3. ? Stable 2.3 cm right lobe liver mass since 11/29/2022. Imaging features are nonspecific. Recommend correlation with more remote prior imaging (not available currently). If a benign lesion cannot be unequivocally confirmed, then nonemergent liver MRI is recommended. 4. ? Mildly decreased subcutaneous edema in the upper right gluteal region since 07/08/2023. There is an associated 2.8 x 1.6 cm subcutaneous hematoma which is mildly increased in size since 07/08/2023. 5. ? Incidental findings above. Critical Care Time Critical Care Time: Critical Care Time: Yes Total Critical Care Time: 75 Attestation: This case had a high probability of a clinically significant, sudden, or life threatening deterioration of this patient's condition which required my full and direct attention, intervention and personal management. Discharge Plan Discharge Patient Disposition: Admitted As Inpatient Clinical Impression: Alcohol abuse, Dehydration, Alcoholic gastritis Condition: Stable Prescriptions: No Action resveratrol 250 mg capsule 250 - 500 mg PO DAILY PRN (Reason: Inflammation) ondansetron 4 mg tablet,disintegrating 4 mg PO Q6H PRN (Reason: nausea and vomiting) Qty: 60 1RF trazodone 50 mg tablet 25 mg PO BEDTIME PRN (Reason: Sleep) Qty: 45 0RF lisinopril 40 mg Tablet 40 mg PO DAILY Hold Instructions: Resume on 06/28/23. magnesium hydroxide [Milk of Magnesia] 400 mg/5 mL Suspension 30 ml PO BID PRN (Reason: Constipation) vitamin B complex Tablet 1 tab PO DAILY PRN (Reason: UNKNOWN) Super Enzyme [phone] mg Capsule 1 cap PO .UP TO TID PRN (Reason: UNKNOWN) Pancreatin 2000 1 cap PO .UP TO TID PRN (Reason: UNKNOWN) metoclopramide HCl [Reglan] 10 mg tablet 10 mg PO Q6H PRN (Reason: nausea and vomiting) Qty: 30 0RF Nu-Salt See Rx Instructions .ROUTE .COMPLEX Rx Instructions: prn omeprazole 40 mg capsule,delayed release(DR/EC) 40 mg PO DAILY Mylanta 200-200-20 mg/5 mL Suspension 15 ml PO QID PRN (Reason: UNKNOWN) Rx Instructions: administer between meals and at bedtime clonidine HCl 0.1 mg tablet 0.1 mg PO BID PRN (Reason: Blood Pressure) sucralfate 100 mg/mL suspension 10 ml PO TID PRN (Reason: unknown) mirtazapine 15 mg tablet 15 mg PO BEDTIME PRN (Reason: Sleep) loratadine 10 mg tablet 10 mg PO DAILY PRN (Reason: Allergy Symptoms) Referrals: Antonio Alvarado MD [Primary Care Provider] - Coding Level of Care Code ED Family Development Specialist for Al Duran
[2023-08-06 06:23] LABS: Basophils % 0.5 %; Eosinophils # 0.1 10^3/uL (0.0-0.8); Hematocrit 42.1 % (37-53); Lymphocytes # 2.6 10^3/uL (0.8-4.8); Lymphocytes % 44.1 %; Mean Corpuscular HGB Conc 35.9 g/dL (30-55); Mean Corpuscular Hemoglobin 33.9 pg (27-33); Mean Corpuscular Volume 94.4 fl (82-101); Mean Platelet Volume 10.2 fL (7.4-10.4); Monocytes # 0.4 10^3/uL (0.2-0.9); Monocytes % 7.2 %; Neutrophils # 2.75 10^3/uL (1.8-7.7); Nucleated Red Blood Cells % 0 %; Platelet Count 200 10^3/cmm (157-399); Red Blood Count 4.46 10^6/uL (3.85-5.65); Red Cell Distribution Width 12.8 % (12.1-15.1); White Blood Count 5.97 10^3/uL (3.29-11.43)
[2023-08-06] MEDS: sodium chloride 0.9% 1,000 ML 999 ML IV (06:32)
[2023-08-06] MEDS: ondansetron 2 mg/ML SDV 2 mL 4 MG IVP ×2 (06:34→08:57)
[2023-08-06] MEDS: HYDROmorphone 1 mg/mL INJ 1 mL 0.5 MG IVP ×2 (06:36→08:51)
[2023-08-06] MEDS: folic acid 1 MG, multivitamin inj 10 ML, thiamine 100 MG in sodium chloride 0.9% 1,000 ML 252.8 MG IV (06:43)
[2023-08-06 06:52] LABS: Alanine Aminotransferase 125 U/L (0-41); Albumin Level 4.9 g/dL (3.5-5.2); Alcohol Level 194 mg/dL (0-10); Alkaline Phosphatase 243 U/L (40-130); Anion Gap 31.1 (5-19); Aspartate Amino Transferase 257 U/L (0-40); Blood Urea Nitrogen 7 mg/dL (6-20); Calcium 9.8 mg/dL (8.5-10.5); Carbon Dioxide 19 mmol/L (22-29); Chloride 84 mmol/L (98-107); Globulin 3.4 g/dL (1.3-4.6); Glomerular Filtration Rate 155.2 mL/min (90-130); Glucose 97 mg/dL (65-115); Lipase 20 U/L (13-60); Osmolality Calculated 268 mOsm/kg (285-295); Potassium 4.1 mmol/L (3.5-5.1); Sodium 130 mmol/L (136-145); Total Bilirubin 3.2 mg/dL (0.15-1.2); Total Protein 8.3 g/dL (6.6-8.7)
[2023-08-06 06:57] LABS: Procalcitonin 0.29 ng/mL (0-0.5)
[2023-08-06 07:11] LABS: Lactic Sepsis W/Reflex 7.1 mmol/L (0.5-2.2)
[2023-08-06 07:15] LABS: Reflex Lactate Order REFLEX LACTIC ORDERD
--- NOTE | 2023-08-06 07:35 | CTR_ITS ---
PROCEDURE INFORMATION: Exam: CT Abdomen And Pelvis With Contrast Exam date and time: 08/06/2023 8:01 AM Age: 33 years old Clinical indication: Abdominal pain; Generalized; Additional info: Epigastric pain TECHNIQUE: Imaging protocol: Computed tomography of the abdomen and pelvis with contrast. Radiation optimization: All CT scans at this facility use at least one of these dose optimization techniques: automated exposure control; mA and/or kV adjustment per patient size (includes targeted exams where dose is matched to clinical indication); or iterative reconstruction. Contrast material: OMNI 350; Contrast volume: 100 ml; Contrast route: INTRAVENOUS (IV); REPORTING DATA: Count of CT and Cardiac NM exams in prior 12 months: This patient has received 13 known CTs and 0 known cardiac nuclear medicine studies in the 12 months prior to the current study. COMPARISON: 1. CT abdomen pelvis w con* [id number] 11/29/2022 6:[address] abdomen pelvis w con* [id number] 07/08/2023 3:[address] abdomen pelvis w con* [id number] 04/27/2023 11:12 AM RADIATION DOSE METRICS: Total DLP (mGy-cm): 598.69 FINDINGS: Lungs: Lung bases are clear. Liver: The liver is moderately enlarged. There is diffuse low-attenuation of the liver relative to the spleen consistent with fatty infiltration. There is a lobulated 2.3 x 2.0 cm enhancing mass in the inferior right lobe of the liver, stable since 11/29/2022. Gallbladder and bile ducts: The gallbladder is normal. There is no biliary dilation. Pancreas: The pancreas is unremarkable. Spleen: The spleen is unremarkable. Adrenal glands: The adrenal glands are unremarkable. Kidneys and ureters: The kidneys are unremarkable. No hydronephrosis or stones. No ureteral dilation. Stomach and bowel: The stomach is decompressed, preventing meaningful evaluation of wall thickness. The small bowel is nondilated. The colon is unremarkable. There is mild thickening of gastric rugae at the fundus. Appendix: The appendix is normal. Intraperitoneal space: There is no free air or significant intraperitoneal free fluid. Vasculature: The aorta is unremarkable. There is no aneurysm. The portal, splenic and superior mesenteric veins are patent. Lymph nodes: There is no lymphadenopathy in the retroperitoneum, mesentery, pelvis or inguinal regions. Urinary bladder: The urinary bladder is unremarkable. Reproductive: The prostate and seminal vesicles are unremarkable. Bones/joints: There are healed fractures of the right anterolateral 6th through 8th ribs. The lumbar spine, pelvis and proximal femora are intact. Soft tissues: Subcutaneous edema in the right upper gluteal region is mildly decreased since 07/08/2023. There is a 2.8 x 1.6 cm subcutaneous hematoma in the medial upper right gluteal region which is mildly increased since 07/08/2023. The abdominal wall is intact. CT/CT abdomen pelvis w con* [id number] IMPRESSION: 1. Suggestive findings of gastritis. 2. Moderate hepatomegaly and severe hepatic steatosis. 3. Stable 2.3 cm right lobe liver mass since 11/29/2022. Imaging features are nonspecific. Recommend correlation with more remote prior imaging (not available currently). If a benign lesion cannot be unequivocally confirmed, then nonemergent liver MRI is recommended. 4. Mildly decreased subcutaneous edema in the upper right gluteal region since 07/08/2023. There is an associated 2.8 x 1.6 cm subcutaneous hematoma which is mildly increased in size since 07/08/2023. 5. Incidental findings above.
[2023-08-06] MEDS: iohexol 350 mg/mL 500 mL Btl (per mL) IV (08:05)
[2023-08-06 09:37] LABS: Lactic Acid level (Lactate) 5.9 mmol/L (0.5-2.2)
[2023-08-06] MEDS: chlordiazePOXIDE 25 mg Capsule 50 MG PO (10:01)
[2023-08-06] MEDS: haloperidol inj 5 mg/mL INJ 1 mL IVP (10:01)
[2023-08-06] MEDS: lactated ringers 1,000 ML 999 ML IV (10:01)
[2023-08-06] MEDS: HYDROmorphone 1 mg/mL INJ 1 mL IVP ×4 (11:07→21:45)
--- NOTE | 2023-08-06 11:18 | ECG_ITS ---
[facility] Test Date: 2023-08-06 Pat Name: Buddy Cowan Department: Room: [facility] Gender: Male Sap Specialist: : 1990 Requested By: Troy Hopson Order Number: [id number] Thomas MD: Jorje Eller M.D. Measurements Intervals [place] Rate: 107 P: 68 [place]: 158 QRS: 53 QRSD: 74 T: 78 QT: 310 QTc: 415 Interpretive Statements SINUS TACHYCARDIA NONSPECIFIC T-WAVE ABNORMALITY Compared to ECG 07/08/2023 14:47:48 T-wave abnormality now present Electronically Signed On 08-06-2023 12:32:20 CDT by Jorje Eller M.D. [id number]
--- NOTE | 2023-08-06 12:00 | P.HP_ITS ---
Providers/Chief Complaint Admitting Physician: Troy Hopson MD Primary Care Provider: Antonio Alvarado MD Chief Complaint: ABD PAIN History of Present Illness Buddy Cowan is a 33 year old male with a past medical history of alcoholism, history of recurrent pancreatitis, history of alcoholic hepatitis, history of alcohol withdrawal, who presents [facility] due to nausea, vomiting, abdominal pain, fatigue, malaise. Patient tells me that he had a full bottle of wine less than 24 hours ago, since then he has been trying to wean himself off alcohol he has been having severe tremors, anxiety, severe abdominal pain and distention, feeling nauseous, no fevers, chills, flank pain, denies any IV drug use, he tells me that he drinks alcohol regularly, does report he is passing gas from below, denies any bowel movement, denies dysuria hematuria, his does tell me that about 4 days ago he had a significant fall, hitting the back of his head denies any headache, blurry vision, he does tell me that he frequently falls Review of Systems Const: Reports: fatigue and malaise; Denies: fever(s) or chills Eyes: Denies: change in vision ENMT: Denies: throat pain Card: Denies: chest pain or palpitations Resp: Denies: dyspnea or non-productive cough GI: Reports: abdominal pain, nausea and vomiting; Denies: coffee ground emesis, hematochezia or melena : Denies: flank pain or difficulty urinating Musc: Reports: back pain; Denies: neck pain Skin/Breast: Denies: rash Neuro: Reports: weakness in extremities and frequent falls; Denies: headache(s) or numbness in extremities Psych: Reports: anxiety Endo: Denies: polyuria Medications/Allergies Home Medications Medication Instructions Recorded Confirmed Last Taken Type lisinopril 40 mg tablet 40 mg PO DAILY 01/30/21 08/06/23 07/08/23 History resveratrol 250 mg capsule 250 - 500 mg PO DAILY PRN 01/18/22 08/06/23 1 Week Ago History Inflammation ~07/01/23 Nu-Salt See Rx Instructions .Route .COMPLEX 11/30/22 08/06/23 1 Week Ago History ~07/01/23 magnesium hydroxide 400 mg/5 mL 30 ml PO BID PRN Constipation 12/22/22 08/06/23 1 Week Ago History oral suspension (Milk of Magnesia) ~07/01/23 trazodone 50 mg tablet 25 mg PO BEDTIME PRN Sleep #45 tabs 02/27/23 08/06/23 1 Week Ago Rx ~07/01/23 Pancreat-Bet AEz-mjo-kqyn-pap 250 1 cap PO .UP TO TID PRN UNKNOWN 04/14/23 08/06/23 1 Week Ago History mg-162 mg-65 mg-125 mg capsule ~07/01/23 (Super Enzyme) Pancreatin 2000 1 cap PO .UP TO TID PRN UNKNOWN 04/14/23 08/06/23 1 Week Ago History ~07/01/23 vitamin B complex 1 tab PO DAILY PRN UNKNOWN 04/14/23 08/06/23 1 Week Ago History ~07/01/23 metoclopramide HCl 10 mg tablet 10 mg PO Q6H PRN nausea and 04/27/23 08/06/23 1 Week Ago Rx (Reglan) vomiting #30 tabs ~07/01/23 ondansetron 4 mg disintegrating 4 mg PO Q6H PRN nausea and 07/12/23 08/06/23 Unknown Rx tablet vomiting #60 tabs aluminum-mag hydroxide-simethicone 15 ml PO QID PRN UNKNOWN 08/06/23 08/06/23 Unknown History 200 mg-200 mg-20 mg/5 mL oral susp clonidine HCl 0.1 mg tablet 0.1 mg PO BID PRN Blood Pressure 08/06/23 08/06/23 Unknown History loratadine 10 mg tablet 10 mg PO DAILY PRN Allergy Symptoms 08/06/23 08/06/23 Unknown History mirtazapine 15 mg tablet 15 mg PO BEDTIME PRN Sleep 08/06/23 08/06/23 Unknown History omeprazole 40 mg capsule,delayed 40 mg PO DAILY 08/06/23 08/06/23 Unknown History release sucralfate 100 mg/mL oral 10 ml PO TID PRN unknown 08/06/23 08/06/23 Unknown History suspension Allergies Allergy/AdvReac Type Severity Reaction Status Date / Time aspirin Allergy Unknown ADR-Gastrointestinal Verified 08/03/23 07:37 Upset NSAIDS (Non-Steroidal Allergy Unknown Unknown Verified 08/03/23 07:37 Anti-Inflamma acetaminophen [From Tylenol] Allergy ADR-Gastrointestinal Verified 08/03/23 07 :37 Upset naproxen [From Aleve] Allergy Unknown Verified 08/03/23 07:37 zolpidem [From Ambien] Allergy ADR-Nightma Verified 08/03/23 07:37 re buspirone AdvReac Intermediate ADR-Anxiety Verified 08/03/23 07:37 PFSH Acute PFSH: Medical History Acute on chronic pancreatitis Acute posttraumatic stress disorder Alcohol abuse Anxiety and depression Chronic nasal congestion Chronic nausea GERD (gastroesophageal reflux disease) Gynecomastia, male Hyperlipidemia Hypertension Panic attack Transaminitis Surgical History No pertinent past surgical history Family History Father Hypertension Social History Smoking and tobacco/nicotine status: never used tobacco/nicotine Alcohol intake: current Alcohol intake frequency: 0-2 Drinks per Day Substance/Drug Use: never Marital status: Number of children: 5 Current occupational status: employed Current gender identity: Male Vitals/I&O/Wt Last Vital Signs Temp 97.9 F 08/06/23 06:09 Pulse 109 H 08/06/23 11:00 Resp 29 H 08/06/23 11:00 BP 156/97 08/06/23 11:00 Pulse Ox 99 08/06/23 11:00 O2 Del Method Room Air 08/06/23 06:23 08/05/23 08/06/23 08/06/23 22:59 06:59 14:59 Intake Total 3011.2 / 3011.2 Balance 3011.2 / 3011.2 Weight last 48 hrs Weight 104.326 kg Physical Exam Const: COMMON NORMALS: no acute distress and patient oriented x3 ORIENTATION/CONSCIOUSNESS: Yes awake, Yes oriented to person, Yes oriented to place and Yes oriented to time OTHER: CIWA score, does have tremors of bilateral upper extremities, reports of anxiet y, HENMT: COMMON NORMALS: normocephalic HEAD & SCALP: normocephalic Eye: COMMON NORMALS: Equal, round and reactive pupils present and EOMs intact bilaterally Neck/C-Spine: COMMON NORMALS: no JVD Lymph: LYMPHATIC: no lymphadenopathy noted Chest: COMMONS NORMALS: normal inspection of the chest Resp: COMMON NORMALS: normal respiratory effort, No retractions, No use of accessory muscles and clear to auscultation bilaterally AUSCULTATION: clear to auscultation bilaterally Cardio: COMMON NORMALS: regular rate, regular rhythm, S1 normal heart sound present and S2 normal heart sound present RATE: regular rate RHYTHM: regular rhythm HEART SOUNDS: S1 normal heart sound present and S2 normal heart sound present GI: OTHER: Abdomen soft, slightly distended, no guarding, no rebound, no rigidity, does have diffuse abdominal tenderness diminished bowel sounds in all 4 quadrants : COMMON NORMALS: Yes no CVA tenderness Extremity: COMMON NORMALS: no calf tenderness and no pedal edema Neuro: COMMON NORMALS: patient oriented x3, CN's II-XII intact bilaterally, moves all extremities and no focal motor deficits Psych: COMMON NORMALS: denies hallucinations, denies homicidal ideation and denies suicidal ideation OTHER: No visual hallucinations, no tactile hallucinations Data 08/06/23 06:15 08/06/23 06:15 Micro: Microbiology 08/06/23 11:38 Blood Culture - Preliminary Blood SPECIMEN COLLECTED 08/06/23 11:30 Blood Culture - Preliminary Blood SPECIMEN COLLECTED A&P Assessment and plan (1) Severe alcohol withdrawal with perceptual disturbances: (2) Alcoholic gastritis: (3) Subcutaneous hematoma: (4) Alcoholic hepatitis: (5) Acute on chronic pancreatitis: (6) Abdominal pain: Qualifiers: Abdominal location: epigastric Qualified Code(s): R10.13 - Epigastric pain (7) Dehydration: (8) Lactic acidosis: (9) Metabolic acidosis: Plan Severe alcohol withdrawal -CIWA score 22 -Has received Librium -Has received couple doses of Dilaudid -We will start him on phenobarbital 10 mg/kg, divided 40%, 30%, 30%, every 8 hours as a loading dose -We will switch to p.o. phenobarbital thereafter -[facility] protocol -Has received banana bag -Monitor closely in intensive care unit -Low threshold for intubation -Full code -Lovenox for DVT prophylaxis Acute on chronic pancreatitis -Serial abdominal exams -Dilaudid for pain ? Reglan, promethazine, Zofran for nausea ? We will place PICC line, start peripheral nutrition ? Keep n.p.o. ? Zosyn for antibiotic coverage Lactic acidosis ? Follow-up blood cultures, follow urinalysis ? Likely secondary to dehydration, ? Continue IV fluids, ? Follow lactic acid every 6 hours Metabolic acidosis ?, Secondary to dehydration Alcohol abuse, ? Alcoholic hepatitis, monitor LFTs Attestations Medical Necessity Statement*: Patient requires hospitalization, inpatient, greater than 2 midnights due to severe alcohol withdrawal, severe abdominal pain elevated lactic acid, metabolic acidosis Diagnoses Severe alcohol withdrawal with perceptual disturbances F10.932 Alcoholic gastritis K29.20 Subcutaneous hematoma T14.8XXA Alcoholic hepatitis K70.10 Acute on chronic pancreatitis K85.90; K86.1 Abdominal pain R10.13 Abdominal location: epigastric Dehydration E86.0 Lactic acidosis E87.20 Metabolic acidosis E87.20
[2023-08-06 12:03] LABS: Troponin(5th) Baseline < 6 ng/L (0-15)
[2023-08-06 12:04] LABS: Lactate (Lactic Acid level) 3.3 mmol/L (0.5-2.2)
[2023-08-06 12:13] LABS: Estmated Average Glucose 74; Hemoglobin A1C 4.2 % (4.0-6.0)
[2023-08-06 12:25] LABS: NT Pro B Type Natriuretic Pept 36 pg/mL (0-125); Procalcitonin 0.29 ng/mL (0-0.5); Thyroid Stimulating Hormone 1.56 uIU/mL (0.27-4.20)
[2023-08-06 12:27] LABS: ABG PCO2 32.8 mmHg (35-45); Arterial Blood Gas Hematocrit 38.9 % (42-52); Base Excess ABG -3.9 mmol/L (-2.0-2.0); Blood Gas Allen Test Pos; Blood Gas Operator Identificat MONRO; Blood Gas Sample Site Radial, right; Blood Gas Sample Type Arterial; HCO3 ABG 20.2 mmol/L (22-26); Oxygen Device ROOM AIR; PO2 ABG 83.6 mmHg (80.0-100.0)
[2023-08-06 12:36] LABS: Chol HDL Ratio 3.73 mg/dL (1.0-5.00); Cholesterol 332 mg/dL (0-200); Gamma Glutamyl Transferase 1049 U/L (8-61); HDL Cholesterol 89 mg/dL (60-100); LDL Cholesterol Calculated 227 mg/dL (50-129); LDL HDL Ratio 2.55 RATIO (0.00-3.22); Magnesium 1.4 mg/dL (1.7-2.3); Triglycerides 80 mg/dL (0-150)
[2023-08-06] MEDS: pantoprazole 40 mg SDV IVP ×2 (12:50→23:25)
[2023-08-06] MEDS: enoxaparin 40 mg/0.4 mL Syringe SUBCUT (12:51)
[2023-08-06] MEDS: sodium chloride 0.9% 1,000 ML 150 ML IV ×2 (12:52→19:50)
[2023-08-06] MEDS: piperacillin-tazobactam 3.375 GM in sodium chloride 0.9% (plus) 50 ML IV ×2 (12:52→19:30)
--- NOTE | 2023-08-06 13:18 | ECG_ITS ---
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 Measurements Intervals [place] Rate: 101 P: 63 MA: 162 QRS: 39 QRSD: 76 T: 51 QT: 321 QTc: 416 Interpretive Statements SINUS TACHYCARDIA SEPTAL MYOCARDIAL INFARCTION , OF INDETERMINATE AGE [40+ ms Q WAVE IN V1/V2] Compared to ECG 08/06/2023 11:55:00 Myocardial infarct finding now present T-wave abnormality no longer present Electronically Signed On 08-07-2023 7:40:10 CDT by Jorje Eller M.D. [email or web address]/[id number]
[2023-08-06 13:47] LABS: Amphetamines Screen Urine Negative (Negative); Barbiturates Screen Urine Positive (Negative); Benzodiazepines Screen Urine Negative (Negative); Bilirubin Urine 1+ (Negative); Blood Urine 2+ (Negative); Cocaine Screen Urine Negative (Negative); Glucose Urine UA Norm (Normal); Ketones Urine 3+ (Negative); Nitrate Urine Negative (Negative); Opiate Screen Urine Positive (Negative); PCP Screen Urine Negative (Negative); Protein Urine Trace (Negative); THC Screen Urine Negative (Negative); Urine Appearance Clear (CLEAR); Urine Color Dark Yellow (Yellow); Urobilinogen Urine 1 mg/dL (Negative); pH Urine 6.5 (5-7)
[2023-08-06 13:48] LABS: Add Urine Microscopic? YES; Bacteria Urine TRACE /hpf; Leukocyte Esterase Urine Trace (Negative); WBC Urine RARE /hpf (0-5)
[2023-08-06 13:49] LABS: Add Urine Culture? No
[2023-08-06 14:11] LABS: Troponin 5 2HR < 6.0 ng/L (0-15); Troponin 5 2HR Delta 0 ABS# (0-10)
--- NOTE | 2023-08-06 14:51 | XRR_ITS ---
PROCEDURE INFORMATION: Exam: XR Chest Exam date and time: 08/06/2023 3:18 PM Age: 33 years old Clinical indication: Device placement; Picc; Additional info: Picc line verification TECHNIQUE: Imaging protocol: Radiologic exam of the chest. Views: 1 view. COMPARISON: CR XR chest 1V portable [id number] 08/03/2023 8:07 AM FINDINGS: Tubes, catheters and devices: There is a peripherally inserted central catheter on the right with the tip appropriately positioned in the SVC near the cavoatrial junction. Lungs: There is no consolidation. Pleural spaces: There is no pleural effusion or pneumothorax. Heart/Mediastinum: Cardiomediastinal contours are unremarkable. Bones/joints: Bones are unremarkable. XR/XR chest 1V portable [id number] IMPRESSION: Satisfactory PICC line position.
--- NOTE | 2023-08-06 15:25 | PC.NURSE ---
Consulted for PICC placement by House charge, pt needs TPN and other IV medications. Explained procedure to pt and answered questions. Consent signed. Noted RUE basilic vein to be 6mm in diameter and free of evidence of thrombus or stenosis. Noted RUE is 35 cm in circumference at 10 cm above the AC fossa. Using US guidance, MST, and sterile technique the RUE basilic vein was accessed x 1 stick. Device fed easily. Device ports all aspirate and flush easily. Device secured and dressed. EBL 5ml. Pt tolerated well. Total length is 47 cm. Chest xray ordered and performed. Appeared to be in lower 1/3 of SVC, but physician reading pending. Report to primary nurse,Shaye.
[2023-08-06] MEDS: magnesium sulfate premix 4 GM/100 ML PREMIX IV (16:22)
[2023-08-06] MEDS: AA-Dex 4.25%-5% w/Lytes 1,000 ML 12 ML IV (16:29)
[2023-08-06 17:46] LABS: Lactate (Lactic Acid level) 0.5 mmol/L (0.5-2.2)
[2023-08-06 18:02] LABS: Troponin 5 6HR < 6.0 ng/L (0-15); Troponin 5 6HR Delta 0 ng/L (0-12)
--- NOTE | 2023-08-06 18:22 | ECG_ITS ---
[facility] Test Date: 2023-08-06 Pat Name: Buddy Cowan Department: Room: 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 Measurements Intervals [place] Rate: 86 P: 44 VT: 196 QRS: 41 QRSD: 76 T: 37 QT: 355 QTc: 425 Interpretive Statements SINUS RHYTHM SEPTAL MYOCARDIAL INFARCTION , OF INDETERMINATE AGE [40+ ms Q WAVE IN V1/V2] Compared to ECG 08/06/2023 13:43:00 Sinus tachycardia no longer present Myocardial infarct finding still present Electronically Signed On 08-07-2023 7:36:51 CDT by Jorje Eller M.D. [id number]
[2023-08-06] MEDS: PHENobarbital 130 mg/mL SDV 1 mL 230 MG IV (19:38)
[2023-08-06] MEDS: metoclopramide 5 mg/mL SDV 2 mL IVP (19:49)
[2023-08-06] MEDS: LORazepam 2 mg/mL INJ 1 mL IVP (21:57)
[2023-08-06 23:33] LABS: Lactate (Lactic Acid level) 0.6 mmol/L (0.5-2.2)
[2023-08-07] VITALS (31 sets, daily range): BP systolic 124–150; BP diastolic 88–124; PULSE 70–100; RESP 3–23; O2SAT 94–100
[2023-08-07] MEDS: HYDROmorphone 1 mg/mL INJ 1 mL IVP ×6 (00:31→20:20)
[2023-08-07] MEDS: sodium chloride 0.9% 1,000 ML 150 ML IV ×4 (01:52→14:40)
[2023-08-07] MEDS: piperacillin-tazobactam 3.375 GM in sodium chloride 0.9% (plus) 50 ML IV ×3 (03:15→19:19)
[2023-08-07] MEDS: PHENobarbital 130 mg/mL SDV 1 mL 230 MG IV (04:55)
[2023-08-07] MEDS: metoclopramide 5 mg/mL SDV 2 mL IVP (04:57)
[2023-08-07 05:26] LABS: Basophils % 0.4 %; Eosinophils % 0.8 %; Hematocrit 33.8 % (37-53); Lymphocytes # 1.1 10^3/uL (0.8-4.8); Mean Corpuscular HGB Conc 34.3 g/dL (30-55); Mean Corpuscular Volume 99.1 fl (82-101); Mean Platelet Volume 11.1 fL (7.4-10.4); Monocytes # 0.2 10^3/uL (0.2-0.9); Monocytes % 8.3 %; Neutrophils # 1.17 10^3/uL (1.8-7.7); Neutrophils % 46.5 %; Nucleated Red Blood Cells % 0 %; Platelet Count 86 10^3/cmm (157-399); Red Blood Count 3.41 10^6/uL (3.85-5.65); Red Cell Distribution Width 12.7 % (12.1-15.1); White Blood Count 2.52 10^3/uL (3.29-11.43)
[2023-08-07 05:50] LABS: Lactic Sepsis W/Reflex 0.7 mmol/L (0.5-2.2)
--- NOTE | 2023-08-07 06:23 | PC.NURSE ---
During nursing rounds, medication delivery, and neuro checks, pt repeatedly asking questions: Am I done yet? , Am I almost discharged yet? , and When can I go home? This nurse educated pt each time that he was not being discharged or sent home yet.
[2023-08-07 07:19] LABS: Alanine Aminotransferase 75 U/L (0-41); Albumin Level 3.6 g/dL (3.5-5.2); Alkaline Phosphatase 155 U/L (40-130); Aspartate Amino Transferase 121 U/L (0-40); Blood Urea Nitrogen 9 mg/dL (6-20); Calcium 8.4 mg/dL (8.5-10.5); Carbon Dioxide 22 mmol/L (22-29); Chloride 98 mmol/L (98-107); Globulin 2.3 g/dL (1.3-4.6); Glomerular Filtration Rate 191.5 mL/min (90-130); Glucose 81 mg/dL (65-115); Osmolality Calculated 272 mOsm/kg (285-295); Phosphorus 3.5 mg/dL (2.5-4.5); Sodium 132 mmol/L (136-145); Total Bilirubin 2.9 mg/dL (0.15-1.2); Total Protein 5.9 g/dL (6.6-8.7)
[2023-08-07] MEDS: thiamine 100 mg Tablet PO (08:27)
[2023-08-07] MEDS: folic acid 1 mg Tablet PO (08:27)
[2023-08-07] MEDS: multivitamin therapeutic Tablet 1 TAB PO (08:27)
[2023-08-07] MEDS: LORazepam 2 mg/mL INJ 1 mL IVP (10:18)
[2023-08-07] MEDS: pantoprazole 40 mg SDV IVP (11:23)
[2023-08-07] MEDS: enoxaparin 40 mg/0.4 mL Syringe SUBCUT (11:23)
[2023-08-07 11:55] LABS: Lactate (Lactic Acid level) 0.7 mmol/L (0.5-2.2)
--- NOTE | 2023-08-07 12:15 | CT_ITS ---
WS: [id number] CT HEAD TECHNIQUE: Noncontrast CT of the head obtained from the skullbase to the vertex. CLINICAL INFORMATION: fall COMPARISON: CT head 04/27/2023 DLP: 1102.[address] scans at [facility] use at least one of these dose optimization techniques: automated e xposure control; mA and/or kV adjustment per patient size (includes targeted exams where dose is matc hed to clinical indication); or iterative reconstruction. FINDINGS: No evidence of intracranial hemorrhage or mass effect. Ventricular system and basal cisterns are ayala nt. No extra-axial fluid collections. No evidence of mass or mass effect. Normal ramirez-white different iation. Paranasal sinuses and mastoid air cells are well aerated. .Normal visualized soft tissues. IMPRESSION: 1. No evidence of intracranial hemorrhage or mass effect. 2. No acute intracranial findings.
[2023-08-07] MEDS: PHENobarbital 130 mg/mL SDV 1 mL 60 MG IV (13:49)
--- NOTE | 2023-08-07 15:33 | P.PN_ITS ---
Subjective Subjective: Patient was seen this morning, denies any fevers, no chills, no cough, has persistent abdominal pain, abdominal distention, lack of stooling, he is passing gas from below, but tells me that abdominal pain has significantly improved, his tremors have significantly improved, he is much more alert and awake, he is a bit drowsy as he is received Dilaudid,, but can follow commands Vitals/I&O/Wt Last Vital Signs Temp 98.6 F 08/06/23 13:07 Pulse 96 08/07/23 15:00 Resp 12 08/07/23 15:00 BP 145/124 08/07/23 09:00 Pulse Ox 97 08/07/23 15:00 O2 Del Method Room Air 08/07/23 07:54 08/07/23 08/07/23 08/07/23 06:59 14:59 22:59 Intake Total 1051.2 / 5214.7077 1950.0 / 1950.0 Output Total 1150 / 1150 Balance -98.8 / 4064.7077 1950.0 / 1950.0 Weight last 48 hrs Weight 104.326 kg Physical Exam Const: COMMON NORMALS: no acute distress ORIENTATION/CONSCIOUSNESS: Yes awake, Yes oriented to person and Yes oriented to time Resp: COMMON NORMALS: normal respiratory effort, No retractions, No use of accessory muscles and clear to auscultation bilaterally AUSCULTATION: clear to auscultation bilaterally Cardio: COMMON NORMALS: regular rate, regular rhythm, S1 normal heart sound present and S2 normal heart sound present RATE: regular rate RHYTHM: regu lar rhythm HEART SOUNDS: S1 normal heart sound present and S2 normal heart sound present GI: OTHER: Abdomen soft, slightly distended, good bowel sounds in all 4 quadrants, no guarding, no rebound, no rigidity, does have diffuse tenderness Extremity: COMMON NORMALS: no pedal edema Neuro: SENSORIUM/ORIENTATION: Yes oriented to person and Yes oriented to time Urinary Catheter Management: Orozco: Cath Placed During This Visit: yes Reason for Continuing Indwelling Catheter: Accurate Measurement of Urinary Output in Critically Ill Patients Urinary Catheter Date of Insertion: 08/06/23 Urinary Catheter Time of Insertion: 13:07 Data 08/07/23 04:59 08/07/23 06:51 Micro: Microbiology 08/06/23 11:38 Blood Culture - Preliminary Blood NEGATIVE TO DATE 08/06/23 11:30 Blood Culture - Preliminary Blood NEGATIVE TO DATE A&P Assessment and plan (1) Severe alcohol withdrawal with perceptual disturbances: (2) Alcoholic gastritis: (3) Subcutaneous hematoma: (4) Alcoholic hepatitis: (5) Acute on chronic pancreatitis: (6) Abdominal pain: Qualifiers: Abdominal location: epigastric Qualified Code(s): R10.13 - Epigastric pain (7) Dehydration: (8) Lactic acidosis: (9) Metabolic acidosis: Plan Severe alcohol withdrawal -CIWA score 22 -Has received Librium -Has received couple doses of Dilaudid -Status post loading dose of phenobarbital -Start tapering dose of phenobarbital IV -CIWA protocol -Has received banana bag, currently on IV fluids -Monitor closely in intensive care unit -Low threshold for intubation -Full code -Lovenox for DVT prophylaxis Acute on chronic pancreatitis -Serial abdominal exams -Dilaudid for pain ? Reglan, promethazine, Zofran for nausea ? PICC line in place, currently receiving peripheral nutrition ? Keep n.p.o. ? Zosyn for antibiotic coverage Lactic acidosis, resolved ? Follow-up blood cultures, follow urinalysis ? Likely secondary to dehydration, ? Continue IV fluids, Metabolic acidosis ?, Secondary to dehydration Alcohol abuse, ? Have recommended inpatient rehab once medically stable Alcoholic hepatitis, monitor LFTs Plan for today, continue peripheral nutrition, wean down fluids, continue antibiotics, tapering dose of phenobarbital, continue neurochecks, CIWA score, keep n.p.o. Attestations Medical Necessity Statement*: Patient requires hospitalization, inpatient, greater than 2 midnights, for severe alcohol withdrawal, acute on chronic pancreatitis, lactic acidosis, metabolic acidosis, Coding Level of Care Code Acute Code for Chg Fwd Diagnoses Severe alcohol withdrawal with perceptual disturbances F10.932 Alcoholic gastritis K29.20 Subcutaneous hematoma T14.8XXA Alcoholic hepatitis K70.10 Acute on chronic pancreatitis K85.90; K86.1 Abdominal pain R10.13 Abdominal location: epigastric Dehydration E86.0 Lactic acidosis E87.20 Metabolic acidosis E87.20
[2023-08-07] MEDS: LORazepam 2 mg Tablet PO (20:21)
[2023-08-08] VITALS (14 sets, daily range): BP systolic 121–162; BP diastolic 53–108; PULSE 72–96; RESP 13–22; TEMP 36.4–37; O2SAT 96–100
[2023-08-08] MEDS: pantoprazole 40 mg SDV IVP ×3 (00:03→23:45)
[2023-08-08] MEDS: PHENobarbital 130 mg/mL SDV 1 mL 60 MG IV ×2 (00:03→12:11)
[2023-08-08] MEDS: LORazepam 2 mg/mL INJ 1 mL IM (02:16)
[2023-08-08] MEDS: HYDROmorphone 1 mg/mL INJ 1 mL IVP ×6 (02:16→20:25)
[2023-08-08] MEDS: AA-Dex 4.25%-5% w/Lytes 1,000 ML 42 ML IV (03:25)
[2023-08-08] MEDS: sodium chloride 0.9% 1,000 ML 75 ML IV (03:27)
[2023-08-08] MEDS: piperacillin-tazobactam 3.375 GM in sodium chloride 0.9% (plus) 50 ML IV ×3 (04:23→20:24)
[2023-08-08 05:34] LABS: Basophils % 0.6 %; Eosinophils # 0.1 10^3/uL (0.0-0.8); Eosinophils % 1.5 %; Hematocrit 37.5 % (37-53); Lymphocytes # 1.4 10^3/uL (0.8-4.8); Lymphocytes % 39.9 %; Mean Corpuscular Hemoglobin 33.5 pg (27-33); Mean Corpuscular Volume 104.7 fl (82-101); Mean Platelet Volume 11.6 fL (7.4-10.4); Monocytes # 0.3 10^3/uL (0.2-0.9); Monocytes % 9.5 %; Neutrophils # 1.63 10^3/uL (1.8-7.7); Neutrophils % 48.2 %; Nucleated Red Blood Cells % 0 %; Platelet Count 76 10^3/cmm (157-399); Red Blood Count 3.58 10^6/uL (3.85-5.65); Red Cell Distribution Width 12.2 % (12.1-15.1); White Blood Count 3.38 10^3/uL (3.29-11.43)
[2023-08-08 05:52] LABS: Alanine Aminotransferase 67 U/L (0-41); Albumin Level 3.7 g/dL (3.5-5.2); Alkaline Phosphatase 163 U/L (40-130); Blood Urea Nitrogen 5 mg/dL (6-20); Calcium 8.8 mg/dL (8.5-10.5); Carbon Dioxide 20 mmol/L (22-29); Chloride 96 mmol/L (98-107); Globulin 2.8 g/dL (1.3-4.6); Glomerular Filtration Rate 247.7 mL/min (90-130); Glucose 72 mg/dL (65-115); Magnesium 1.8 mg/dL (1.7-2.3); Osmolality Calculated 270 mOsm/kg (285-295); Phosphorus 3.5 mg/dL (2.5-4.5); Sodium 132 mmol/L (136-145); Total Bilirubin 2.2 mg/dL (0.15-1.2); Total Protein 6.5 g/dL (6.6-8.7)
[2023-08-08 05:54] LABS: Anion Gap 19.8 (5-19); Aspartate Amino Transferase 95 U/L (0-40); Potassium 3.8 mmol/L (3.5-5.1)
[2023-08-08 06:11] LABS: Slide Review Slide Review Perform
[2023-08-08] MEDS: thiamine 100 mg Tablet PO (08:30)
[2023-08-08] MEDS: multivitamin therapeutic Tablet 1 TAB PO (08:30)
[2023-08-08] MEDS: folic acid 1 mg Tablet PO (08:30)
[2023-08-08] MEDS: ondansetron 2 mg/ML SDV 2 mL 4 MG IVP (08:30)
[2023-08-08] MEDS: enoxaparin 40 mg/0.4 mL Syringe SUBCUT (11:30)
[2023-08-08] MEDS: metoclopramide 5 mg/mL SDV 2 mL IVP (13:43)
--- NOTE | 2023-08-08 17:12 | PM.PN ---
Subjective Subjective: Patient was seen this morning, he reports persistent abdominal pain slight distention but is passing gas from below, his abdominal pain is improving he tells me, no lightheadedness, no dizziness, no fevers, no chills, denies any significant withdrawal symptoms, does have some minimal tremors, denies any visual auditory or tactile hallucinations,, he is motivated to go to [employer] to help with his alcohol addiction, Vitals/I&O/Wt Last Vital Signs Temp 97.9 F 08/08/23 12:00 Pulse 85 08/08/23 12:00 Resp 22 H 08/08/23 14:42 BP 162/108 08/08/23 12:00 Pulse Ox 98 08/08/23 12:00 O2 Del Method Room Air 08/08/23 12:00 08/08/23 08/08/23 08/08/23 06:59 14:59 22:59 Intake Total 535.8 / 3953.8 50 / 50 50 / 100 Output Total 2600 / 3200 1425 / 1425 Balance -2064.2 / 753.8 -1375 / -1375 50 / -1325 Physical Exam Const: COMMON NORMALS: no acute distress and patient oriented x3 Resp: COMMON NORMALS: normal respiratory effort, No retractions, No use of accessory muscles and clear to auscultation bilaterally AUSCULTATION: clear to auscultation bilaterally Cardio: COMMON NORMALS: regular rate, regular rhythm, S1 normal heart sound present and S2 normal heart sound present RATE: regular rate RHYTHM: regular rhythm HEART SOUNDS: S1 normal heart sound present and S2 normal heart sound present GI: OTHER: Abdomen is soft, slightly distended, diminished bowel sounds in all 4 quadrants, minimal diffuse tenderness, no guarding, no rebound, rigidity Extremity: COMMON NORMALS: no pedal edema Neuro: COMMON NORMALS: patient oriented x3 Psych: COMMON NORMALS: mental status grossly normal Urinary Catheter Management: Orozco: Cath Placed During This Visit: yes, but has since been removed by the nurse Reason for Continuing Indwelling Catheter: Decision to DC Catheter Urinary Catheter Date of Insertion: 08/06/23 Urinary Catheter Time of Insertion: 13:07 Date Urinary Catheter Removed: 08/08/23 Time Urinary Catheter Discontinued: 12:07 Data 08/08/23 05:20 08/08/23 05:20 A&P Assessment and plan (1) Severe alcohol withdrawal with perceptual disturbances: (2) Alcoholic gastritis: (3) Subcutaneous hematoma: (4) Alcoholic hepatitis: (5) Acute on chronic pancreatitis: (6) Abdominal pain: Qualifiers: Abdominal location: epigastric Qualified Code(s): R10.13 - Epigastric pain (7) Dehydration: (8) Lactic acidosis: (9) Metabolic acidosis: Plan Severe alcohol withdrawal -CIWA score 22 -Has received Librium -Has received couple doses of Dilaudid -Status post loading dose of phenobarbital -on tapering dose of phenobarbital IV -[facility] protocol -Has received banana bag, currently on IV fluids -Monitor closely on medsurg -Full code -Lovenox for DVT prophylaxis Acute on chronic pancreatitis -Serial abdominal exams -Dilaudid for pain ? Reglan, promethazine, Zofran for nausea ? PICC line in place, currently receiving peripheral nutrition ? Keep n.p.o. ? Zosyn for antibiotic coverage Lactic acidosis, resolved ? Follow-up blood cultures, follow urinalysis ? Likely secondary to dehydration, ? Continue IV fluids, Metabolic acidosis ?, Secondary to dehydration Alcohol abuse, ? Have recommended inpatient rehab once medically stable Alcoholic hepatitis, monitor LFTs Plan for today, continue serial abdominal exams, replace electrolytes, tapering dose of phenobarbital, continue antibiotics, continue TPN, Attestations Medical Necessity Statement*: Patient requires hospitalization for alcohol withdrawal, acute on chronic pancreatitis, lactic acidosis, metabolic acidosis, Diagnoses Severe alcohol withdrawal with perceptual disturbances F10.932 Alcoholic gastritis K29.20 Subcutaneous hematoma T14.8XXA Alcoholic hepatitis K70.10 Acute on chronic pancreatitis K85.90; K86.1 Abdominal pain R10.13 Abdominal location: epigastric Dehydration E86.0 Lactic acidosis E87.20 Metabolic acidosis E87.20
[2023-08-08] MEDS: sodium chloride 0.9% 1,000 ML 50 ML IV (21:06)
[2023-08-09] VITALS (16 sets, daily range): BP systolic 138–156; BP diastolic 84–112; PULSE 70–110; RESP 16–18; TEMP 36.4–37.1; O2SAT 96–100
[2023-08-09] MEDS: PHENobarbital 130 mg/mL SDV 1 mL 60 MG IV (00:25)
[2023-08-09] MEDS: HYDROmorphone 1 mg/mL INJ 1 mL IVP ×6 (00:42→21:05)
[2023-08-09] MEDS: AA-Dex 4.25%-5% w/Lytes 1,000 ML 42 ML IV (02:54)
[2023-08-09] MEDS: piperacillin-tazobactam 3.375 GM in sodium chloride 0.9% (plus) 50 ML IV ×3 (04:31→21:05)
[2023-08-09 06:23] LABS: Basophils % 0.5 %; Eosinophils # 0.1 10^3/uL (0.0-0.8); Eosinophils % 2.3 %; Hematocrit 35.2 % (37-53); Lymphocytes # 1.5 10^3/uL (0.8-4.8); Mean Corpuscular Hemoglobin 33.2 pg (27-33); Mean Corpuscular Volume 100.9 fl (82-101); Mean Platelet Volume 12.2 fL (7.4-10.4); Monocytes # 0.3 10^3/uL (0.2-0.9); Monocytes % 8.6 %; Neutrophils # 1.94 10^3/uL (1.8-7.7); Neutrophils % 50.6 %; Nucleated Red Blood Cells % 0 %; Platelet Count 84 10^3/cmm (157-399); Red Blood Count 3.49 10^6/uL (3.85-5.65); Red Cell Distribution Width 12.3 % (12.1-15.1); White Blood Count 3.84 10^3/uL (3.29-11.43)
[2023-08-09 06:44] LABS: Alanine Aminotransferase 54 U/L (0-41); Albumin Level 3.7 g/dL (3.5-5.2); Alkaline Phosphatase 152 U/L (40-130); Anion Gap 19.4 (5-19); Aspartate Amino Transferase 62 U/L (0-40); Blood Urea Nitrogen 5 mg/dL (6-20); Calcium 8.9 mg/dL (8.5-10.5); Carbon Dioxide 21 mmol/L (22-29); Chloride 95 mmol/L (98-107); Globulin 2.7 g/dL (1.3-4.6); Glomerular Filtration Rate 191.5 mL/min (90-130); Glucose 80 mg/dL (65-115); Magnesium 1.7 mg/dL (1.7-2.3); Osmolality Calculated 270 mOsm/kg (285-295); Phosphorus 4.2 mg/dL (2.5-4.5); Potassium 3.4 mmol/L (3.5-5.1); Sodium 132 mmol/L (136-145); Total Bilirubin 1.7 mg/dL (0.15-1.2); Total Protein 6.4 g/dL (6.6-8.7)
[2023-08-09] MEDS: potassium chloride ER 20 mEq Tablet 40 MEQ PO (09:46)
[2023-08-09] MEDS: folic acid 1 mg Tablet PO (09:46)
[2023-08-09] MEDS: multivitamin therapeutic Tablet 1 TAB PO (09:47)
[2023-08-09] MEDS: thiamine 100 mg Tablet PO (09:47)
[2023-08-09] MEDS: magnesium lactate 84 mg Tablet PO (09:50)
[2023-08-09] MEDS: enoxaparin 40 mg/0.4 mL Syringe SUBCUT (11:12)
[2023-08-09] MEDS: pantoprazole 40 mg SDV IVP ×2 (11:13→23:51)
[2023-08-09] MEDS: LORazepam 2 mg Tablet PO (11:29)
[2023-08-09] MEDS: metoclopramide 5 mg/mL SDV 2 mL IVP (13:12)
--- NOTE | 2023-08-09 15:46 | PM.PN ---
Subjective Subjective: Patient was seen this morning, denies any fevers, chills, abdominal pain has resolved, he actually had a bowel movement, we discussed starting a clear liquid diet he is agreeable, advised to slowly advance diet, we will wean him off the TPN, he is agreeable, continue phenobarbital taper, discussed [facility], if that is not a viable option we can look into [place], Vitals/I&O/Wt Last Vital Signs Temp 98 F 08/09/23 11:32 Pulse 110 H 08/09/23 14:00 Resp 17 08/09/23 13:12 BP 145/96 08/09/23 11:32 Pulse Ox 100 08/09/23 11:32 O2 Del Method Room Air 08/08/23 19:39 08/09/23 08/09/23 08/09/23 06:59 14:59 22:59 Intake Total 1036.3 / 2136.3 170 / 170 50 / 220 Output Total 750 / 2175 Balance 286.3 / -38.7 170 / 170 50 / 220 Physical Exam Const: COMMON NORMALS: no acute distress and patient oriented x3 Resp: COMMON NORMALS: normal respiratory effort, No retractions, No use of accessory muscles and clear to auscultation bilaterally AUSCULTATION: clear to auscultation bilaterally Cardio: COMMON NORMALS: regular rate, regular rhythm, S1 normal heart sound present and S2 normal heart sound present RATE: regular rate RHYTHM: regular rhythm HEART SOUNDS: S1 normal heart sound present and S2 normal heart sound present GI: OTHER: Abdomen soft, nondistended, nontender good bowel sounds, no guarding, no rebound, no rigidity Extremity: COMMON NORMALS: no pedal edema Neuro: COMMON NORMALS: patient oriented x3 Psych: COMMON NORMALS: mental status grossly normal Urinary Catheter Management: Orozco: Cath Placed During This Visit: yes, but has since been removed by the nurse Reason for Continuing Indwelling Catheter: Decision to DC Catheter Urinary Catheter Date of Insertion: 08/06/23 Urinary Catheter Time of Insertion: 13:07 Date Urinary Catheter Removed: 08/08/23 Time Urinary Catheter Discontinued: 12:07 Data 08/09/23 06:01 08/09/23 06:01 A&P Assessment and plan (1) Severe alcohol withdrawal with perceptual disturbances: (2) Alcoholic gastritis: (3) Subcutaneous hematoma: (4) Alcoholic hepatitis: (5) Acute on chronic pancreatitis: (6) Abdominal pain: Qualifiers: Abdominal location: epigastric Qualified Code(s): R10.13 - Epigastric pain (7) Dehydration: (8) Lactic acidosis: (9) Metabolic acidosis: Plan Severe alcohol withdrawal -CIWA score 22 -Has received Librium -We will wean off Dilaudid -Status post loading dose of phenobarbital -on tapering dose of phenobarbital po -CIHI protocol -Has received banana bag, currently on IV fluids -Monitor closely on medsurg -Full code -Lovenox for DVT prophylaxis Acute on chronic pancreatitis -Serial abdominal exams -Dilaudid for pain ? Reglan, promethazine, Zofran for nausea ? PICC line in place, currently receiving peripheral nutrition to wean off ? Clear liquid ? Zosyn for antibiotic coverage Lactic acidosis, resolved ? Follow-up blood cultures, follow urinalysis ? Likely secondary to dehydration, ? Continue IV fluids, Metabolic acidosis ?, Secondary to dehydration Alcohol abuse, ? Have recommended inpatient rehab once medically stable Alcoholic hepatitis, monitor LFTs Plan for today, continue serial abdominal exams, replace electrolytes, tapering dose of phenobarbital, wean off TPN, start clears Attestations Medical Necessity Statement*: Patient requires hospitalization for acute on chronic pancreatitis, alcohol withdrawal Diagnoses Severe alcohol withdrawal with perceptual disturbances F10.932 Alcoholic gastritis K29.20 Subcutaneous hematoma T14.8XXA Alcoholic hepatitis K70.10 Acute on chronic pancreatitis K85.90; K86.1 Abdominal pain R10.13 Abdominal location: epigastric Dehydration E86.0 Lactic acidosis E87.20 Metabolic acidosis E87.20
[2023-08-09] MEDS: sodium chloride 0.9% 1,000 ML 50 ML IV (17:37)
[2023-08-10] VITALS (9 sets, daily range): BP systolic 125–148; BP diastolic 86–107; PULSE 79–84; RESP 16–22; TEMP 36.3–36.6; O2SAT 98–100
[2023-08-10] MEDS: HYDROmorphone 1 mg/mL INJ 1 mL IVP ×3 (00:11→10:43)
[2023-08-10] MEDS: piperacillin-tazobactam 3.375 GM in sodium chloride 0.9% (plus) 50 ML IV (04:10)
[2023-08-10 05:05] LABS: Basophils % 0.5 %; Eosinophils # 0.1 10^3/uL (0.0-0.8); Eosinophils % 2.6 %; Hematocrit 33.5 % (37-53); Lymphocytes # 1.5 10^3/uL (0.8-4.8); Lymphocytes % 36.8 %; Mean Corpuscular HGB Conc 33.4 g/dL (30-55); Mean Corpuscular Hemoglobin 33.4 pg (27-33); Mean Platelet Volume 11.8 fL (7.4-10.4); Monocytes # 0.4 10^3/uL (0.2-0.9); Monocytes % 10.3 %; Neutrophils # 2.06 10^3/uL (1.8-7.7); Neutrophils % 49.6 %; Nucleated Red Blood Cells % 0 %; Platelet Count 102 10^3/cmm (157-399); Red Blood Count 3.35 10^6/uL (3.85-5.65); Red Cell Distribution Width 12.2 % (12.1-15.1); White Blood Count 4.16 10^3/uL (3.29-11.43)
[2023-08-10 05:30] LABS: Alanine Aminotransferase 54 U/L (0-41); Albumin Level 3.7 g/dL (3.5-5.2); Alkaline Phosphatase 162 U/L (40-130); Anion Gap 13.6 (5-19); Aspartate Amino Transferase 58 U/L (0-40); Blood Urea Nitrogen 5 mg/dL (6-20); Calcium 8.9 mg/dL (8.5-10.5); Carbon Dioxide 23 mmol/L (22-29); Chloride 102 mmol/L (98-107); Globulin 2.2 g/dL (1.3-4.6); Glomerular Filtration Rate 247.7 mL/min (90-130); Glucose 113 mg/dL (65-115); Magnesium 1.8 mg/dL (1.7-2.3); Osmolality Calculated 278 mOsm/kg (285-295); Phosphorus 4.1 mg/dL (2.5-4.5); Potassium 3.6 mmol/L (3.5-5.1); Sodium 135 mmol/L (136-145); Total Bilirubin 1.4 mg/dL (0.15-1.2); Total Protein 5.9 g/dL (6.6-8.7)
[2023-08-10] MEDS: multivitamin therapeutic Tablet 1 TAB PO (10:42)
[2023-08-10] MEDS: pantoprazole 40 mg SDV IVP (10:42)
[2023-08-10] MEDS: enoxaparin 40 mg/0.4 mL Syringe SUBCUT (10:42)
[2023-08-10] MEDS: thiamine 100 mg Tablet PO (10:42)
[2023-08-10] MEDS: magnesium lactate 84 mg Tablet PO (10:42)
[2023-08-10] MEDS: folic acid 1 mg Tablet PO (10:42)
--- NOTE | 2023-08-10 12:16 | PM.DCS ---
Discharge Providers Date of Admission: 08/06/23 10:35 Date of Discharge: August 10, 2023 Attending Provider at Admission: Troy Hopson MD Attending Provider at Discharge: Troy Hopson MD Primary Care Provider: Antonio Alvarado MD Diagnoses at Discharge Discharge Diagnosis (1) Severe alcohol withdrawal with perceptual disturbances: Status: Acute (2) Alcoholic gastritis: Status: Acute (3) Subcutaneous hematoma: Status: Acute (4) Alcoholic hepatitis: Status: Acute (5) Acute on chronic pancreatitis: Status: Acute (6) Abdominal pain: Status: Acute Qualifiers: Abdominal location: epigastric Qualified Code(s): R10.13 - Epigastric pain (7) Dehydration: Status: Acute (8) Lactic acidosis: Status: Acute (9) Metabolic acidosis: Status: Acute Reason for Visit Reason for Visit: ABD PAIN Hospital Course Hospital Course Buddy Cowan is a 33 year old male with a past medical history of alcoholism, history of recurrent pancreatitis, history of alcoholic hepatitis, history of alcohol withdrawal, who presents [facility] due to nausea, vomiting, abdominal pain, fatigue, malaise.? Patient tells me that he had a full bottle of wine less than 24 hours ago, since then he has been trying to wean himself off alcohol he has been having severe tremors, anxiety, severe abdominal pain and distention, feeling nauseous, no fevers, chills, flank pain, denies any IV drug use, he tells me that he drinks alcohol regularly, does report he is passing gas from below, denies any bowel movement, denies dysuria hematuria, his does tell me that about 4 days ago he had a significant fall, hitting the back of his head denies any headache, blurry vision, he does tell me that he frequently falls This is a 33-year-old male, who presents [facility] for severe alcohol withdrawal, severe abdominal pain, acute on chronic pancreatitis, lactic acidosis, metabolic acidosis, alcoholic hepatitis. The patient required ICU admission, broad-spectrum antibiotic therapy, IV fluids, phenobarbital for alcohol withdrawal, patient overall clinically improved, received PPN, for nutrition, overall his clinical condition improved, moved out of ICU, weaned down on phenobarbital, weaned off peripheral nutrition. Patient's abdominal pain resolved, he was monitored on clear liquids for 24 hours, tolerated well, had a bowel movement, afebrile, abdominal pain minimal. Will be discharged on a 4-day phenobarbital taper. Advised to abstain from alcohol. Attempts were made to transfer patient to [facility], however they did not have beds at this time, and options were provided for alcohol rehab at a [facility] or [place] location. However, patient declined for now. Patient was found to have 3. ? Stable 2.3 cm right lobe liver mass since 11/29/2022. Imaging features are nonspecific. Recommend correlation with more remote prior imaging (not available currently). If a benign lesion cannot be unequivocally confirmed, then nonemergent liver MRI is recommended. -he will follow up with GI in [place] for further work up -- Please use phenobarbital as prescribed, taper as prescribed, do not drink operate machinery or drive while taking medication -Please abstain from alcohol consumption -Please drink plenty of electrolyte balanced fluids for the next 24 hours, avoid solid foods for now -If by tomorrow your abdomen improves, no nausea, no vomiting, advance to full liquid diet for at least another 24 to 48 hours -If you tolerate that then advance to a GI soft diet -Please follow-up with your meat counter clerk -Please abstain from any alcohol consumption Physical Exam Const: COMMON NORMALS: no acute distress and patient oriented x3 Resp: COMMON NORMALS: normal respiratory effort, No retractions, No use of accessory muscles and clear to auscultation bilaterally AUSCULTATION: clear to auscultation bilaterally Cardio: COMMON NORMALS: regular rate, regular rhythm, S1 normal heart sound present and S2 normal heart sound present RATE: regular rate RHYTHM: regular rhythm HEART SOUNDS: S1 normal heart sound present and S2 normal heart sound present GI: COMMON NORMALS: Normal to inspection, nondistended, normoactive bowel sounds present and non-tender Extremity: COMMON NORMALS: no pedal edema Neuro: COMMON NORMALS: patient oriented x3 Psych: COMMON NORMALS: mental status grossly normal Urinary Catheter Management: Orozco: Cath Placed During This Visit: yes, but has since been removed by the nurse Reason for Continuing Indwelling Catheter: Decision to DC Catheter Urinary Catheter Date of Insertion: 08/06/23 Urinary Catheter Time of Insertion: 13:07 Date Urinary Catheter Removed: 08/08/23 Time Urinary Catheter Discontinued: 12:07 Discharge Data Studies Completed and Pending Completed Studies During Hospitalization Category Date Time Status CT abdomen pelvis w con* [id number] Stat Cat Scan 08/06/23 07:[address] head wo con* [id number] Routine Cat Scan 08/07/23 12:15 Completed XR chest 1V portable [id number] Stat Exams 08/06/23 14:51 Completed Pending at discharge Category Date Time Status Blood Culture Routine Lab 08/06/23 11:38 Results Complete Blood Count w/Auto AM LABS Lab 08/11/23 04:00 Ordered Complete Blood Count w/Auto AM LABS Lab 08/12/23 04:00 Ordered Comprehensive Metabolic Panel AM LABS Lab 08/11/23 04:00 Ordered Comprehensive Metabolic Panel AM LABS Lab 08/12/23 04:00 Ordered Magnesium AM LABS Lab 08/11/23 04:00 Ordered Magnesium AM LABS Lab 08/12/23 04:00 Ordered Phosphorus AM LABS Lab 08/11/23 04:00 Ordered Phosphorus AM LABS Lab 08/12/23 04:00 Ordered Radiology Impressions Abdomen/Pelvis CT 08/06/23 07:35 IMPRESSION: 1. Suggestive findings of gastritis. 2. Moderate hepatomegaly and severe hepatic steatosis. 3. Stable 2.3 cm right lobe liver mass since 11/29/2022. Imaging features are nonspecific. Recommend correlation with more remote prior imaging (not available currently). If a benign lesion cannot be unequivocally confirmed, then nonemergent liver MRI is recommended. 4. Mildly decreased subcutaneous edema in the upper right gluteal region since 07/08/2023. There is an associated 2.8 x 1.6 cm subcutaneous hematoma which is mildly increased in size since 07/08/2023. 5. Incidental findings above. Chest X-Ray 08/06/23 14:51 IMPRESSION: Satisfactory PICC line position. Laboratory Results WBC 4.16 10^3/uL (3.29-11.43) 08/10/23 04:47 Corrected WBC Cancelled 08/07/23 03:22 RBC 3.35 10^6/uL (3.85-5.65) L 08/10/23 04:47 Hgb 11.20 g/dL (11.27-16.99) L 08/10/23 04:47 Hct 33.5 % (37-53) L 08/10/23 04:47 MCV 100.0 fl (82-101) 08/10/23 04:47 MCH 33.4 pg (27-33) H 08/10/23 04:47 MCHC 33.4 g/dL (30-55) 08/10/23 04:47 RDW 12.2 % (12.1-15.1) 08/10/23 04:47 Plt Count 102 10^3/cmm (157-399) L 08/10/23 04:47 MPV 11.8 fL (7.4-10.4) H 08/10/23 04:47 Gran % Cancelled 08/07/23 03:22 Neut % (Auto) 49.6 % 08/10/23 04:47 Lymph % (Auto) 36.8 % 08/10/23 04:47 Davidson % (Auto) 10.3 % 08/10/23 04:47 Eos % (Auto) 2.6 % 08/10/23 04:47 Baso % (Auto) 0.5 % 08/10/23 04:47 Neut # (Auto) 2.06 10^3/uL (1.8-7.7) 08/10/23 04:47 Lymph # (Auto) 1.5 10^3/uL (0.8-4.8) 08/10/23 04:47 Davidson # (Auto) 0.4 10^3/uL (0.2-0.9) 08/10/23 04:47 Eos # (Auto) 0.1 10^3/uL (0.0-0.8) 08/10/23 04:47 Baso # (Auto) 0.0 10^3/uL (0.0-0.1) 08/10/23 04:47 Absolute Gran (auto) Cancelled 08/07/23 03:22 Nucleated RBC % (auto) 0 % 08/10/23 04:47 Nucleated RBCs # 0.0 /100WBC 08/10/23 04:47 PT 15.60 SECONDS (12.1-14.9) H 08/06/23 11:30 INR 1.20 (0.8-1.2) 08/06/23 11:30 Specimen Type Arterial 08/06/23 12:14 Sample Site Radial, right 08/06/23 12:14 ABG pH 7.40 (7.35-7.45) 08/06/23 12:14 ABG pCO2 32.8 mmHg (35-45) L 08/06/23 12:14 ABG pO2 83.6 mmHg (80.0-100.0) 08/06/23 12:14 ABG HCO3 20.2 mmol/L (22-26) L 08/06/23 12:14 ABG Base Excess -3.9 mmol/L (-2.0-2.0) L 08/06/23 12:14 Ricardo Test Pos 08/06/23 12:14 Hematocrit 38.9 % (42-52) L 08/06/23 12:14 O2 Delivery Device Room air 08/06/23 12:14 FiO2 21.0 % 08/06/23 12:14 Hot Dipper ID [place] 08/06/23 12:14 Sodium 135 mmol/L (136-145) L 08/10/23 04:47 Potassium 3.6 mmol/L (3.5-5.1) 08/10/23 04:47 Chloride 102 mmol/L (98-107) 08/10/23 04:47 Carbon Dioxide 23 mmol/L (22-29) 08/10/23 04:47 Anion Gap 13.6 (5-19) 08/10/23 04:47 BUN 5 mg/dL (6-20) L 08/10/23 04:47 Creatinine 0.4 mg/dL (0.7-1.2) L 08/10/23 04:47 GFR Calculation 247.7 mL/min (90-130) H 08/10/23 04:47 Glucose 113 mg/dL (65-115) 08/10/23 04:47 Estimat Average Glucose 74 08/06/23 06:15 Hemoglobin A1c 4.2 % (4.0-6.0) 08/06/23 06:15 Calculated Osmolality 278 mOsm/kg (285-295) L 08/10/23 04:47 Lactic Acid 0.7 mmol/L (0.5-2.2) 08/07/23 04:59 Lactic Acid (Sepsis) 5.9 mmol/L (0.5-2.2) H* 08/06/23 09:07 Lactate 0.7 mmol/L (0.5-2.2) 08/07/23 11:22 Calcium 8.9 mg/dL (8.5-10.5) 08/10/23 04:47 Phosphorus 4.1 mg/dL (2.5-4.5) 08/10/23 04:47 Magnesium 1.8 mg/dL (1.7-2.3) 08/10/23 04:47 Total Bilirubin 1.4 mg/dL (0.15-1.2) H 08/10/23 04:47 Direct Bilirubin 1.50 mg/dL (0.00-0.30) H 08/06/23 11:30 Indirect Bilirubin 1.50 08/06/23 11:30 GGT 1049 U/L (8-61) H 08/06/23 11:30 AST 58 U/L (0-40) H 08/10/23 04:47 ALT 54 U/L (0-41) H 08/10/23 04:47 Alkaline Phosphatase 162 U/L (40-130) H 08/10/23 04:47 Troponin T Baseline < 6 ng/L (0-15) 08/06/23 11:30 Troponin T 120 Minute < 6.0 ng/L (0-15) 08/06/23 13:34 Delta Troponin T 0 ABS# (0-10) 08/06/23 13:34 Troponin T Hi Sens 6Hr < 6.0 ng/L (0-15) 08/06/23 17:09 Troponin T Hi Sens 6Hr Delta 0 ng/L (0-12) 08/06/23 17:09 C-Reactive Protein 3.0 mg/L (0.0-4.9) 08/06/23 11:30 NT-Pro-B Natriuret Pep 36 pg/mL (0-125) 08/06/23 11:30 Total Protein 5.9 g/dL (6.6-8.7) L 08/10/23 04:47 Albumin 3.7 g/dL (3.5-5.2) 08/10/23 04:47 Globulin 2.2 g/dL (1.3-4.6) 08/10/23 04:47 Triglycerides 80 mg/dL (0-150) 08/06/23 11:30 Cholesterol 332 mg/dL (0-200) H 08/06/23 11:30 LDL Cholesterol, Calc 227 mg/dL (50-129) H 08/06/23 11:30 HDL Cholesterol 89 mg/dL (60-100) 08/06/23 11:30 LDL/HDL Ratio 2.55 RATIO (0.00-3.22) 08/06/23 11:30 Cholesterol/HDL Ratio 3.73 mg/dL (1.0-5.00) 08/06/23 11:30 Lipase 20 U/L (13-60) 08/06/23 06:15 Procalcitonin 0.29 ng/mL (0-0.5) 08/06/23 11:30 TSH 1.56 uIU/mL (0.27-4.20) 08/06/23 11:30 Urine Color Dark yellow (Yellow) 08/06/23 13:00 Urine Appearance Clear (CLEAR) 08/06/23 13:00 Urine pH 6.5 (5-7) 08/06/23 13:00 Ur Specific [place] 1.010 (1.005-1.030) 08/06/23 13:00 Urine Protein Trace (Negative) 08/06/23 13:00 Urine Glucose (UA) Norm (Normal) 08/06/23 13:00 Urine Ketones 3+ (Negative) H 08/06/23 13:00 Urine Blood 2+ (Negative) H 08/06/23 13:00 Urine Nitrate Negative (Negative) 08/06/23 13:00 Urine Bilirubin 1+ (Negative) H 08/06/23 13:00 Urine Urobilinogen 1 mg/dL (Negative) H 08/06/23 13:00 Ur Leukocyte Esterase Trace (Negative) H 08/06/23 13:00 Urine RBC 5-10 /hpf (0-2) H 08/06/23 13:00 Urine WBC Rare /hpf (0-5) 08/06/23 13:00 Ur Squamous Epith Cells 5-10 /hpf (0-5) H 08/06/23 13:00 Amorphous Sediment Not Reportable 08/06/23 13:00 Urine Bacteria Trace /hpf (NONE) 08/06/23 13:00 Urine Opiates Screen Positive ng/mL (Negative) H 08/06/23 13:00 Ur Barbiturates Screen Positive ng/mL (Negative) H 08/06/23 13:00 Ur Phencyclidine Scrn Negative ng/mL (Negative) 08/06/23 13:00 Ur Amphetamines Screen Negative ng/mL (Negative) 08/06/23 13:00 U Benzodiazepines Scrn Negative ng/mL (Negative) 08/06/23 13:00 Urine Cocaine Screen Negative ng/mL (Negative) 08/06/23 13:00 U Marijuana (THC) Screen Negative ng/mL (Negative) 08/06/23 13:00 Ethyl Alcohol 194 mg/dL (0-10) H 08/06/23 06:15 Vitals Last Vital Signs Temp 97.4 F L 08/10/23 11:28 Pulse 84 08/10/23 11:28 Resp 17 08/10/23 11:28 BP 148/99 08/10/23 11:28 Pulse Ox 98 08/10/23 11:28 O2 Del Method Room Air 08/10/23 11:28 Discharge Plan Discharge Patient Disposition: Home Condition: Stable Prescriptions: New phenobarbital 20 mg/5 mL (4 mg/mL) Elixir See Rx Instructions .ROUTE .COMPLEX Qty: 30 0RF Rx Instructions: 30mg(7.5ml) BID for 1 day, 30mg(7.5ml) for daily for 2 days, multivitamin with folic acid [Thera] 400 mcg Tablet 1 tab PO DAILY 30 Days Qty: 30 0RF folic acid 1 mg Tablet 1 mg PO DAILY 30 Days Qty: 30 0RF thiamine mononitrate (vit B1) [Vitamin B-1 (mononitrate)] 100 mg Tablet 100 mg PO DAILY 30 Days Qty: 30 0RF magnesium L-lactate [Magtab] 84 mg Tablet Extended Release 84 mg PO DAILY 30 Days Qty: 30 0RF Continued resveratrol 250 mg capsule 250 - 500 mg PO DAILY PRN (Reason: Inflammation) trazodone 50 mg tablet 25 mg PO BEDTIME PRN (Reason: Sleep) Qty: 45 0RF clonidine HCl 0.1 mg tablet 0.1 mg PO BID PRN (Reason: Blood Pressure) Qty: 60 0RF lisinopril 40 mg Tablet 40 mg PO DAILY Hold Instructions: Resume on 06/28/23. magnesium hydroxide [Milk of Magnesia] 400 mg/5 mL Suspension 30 ml PO BID PRN (Reason: Constipation) vitamin B complex Tablet 1 tab PO DAILY PRN (Reason: UNKNOWN) Super Enzyme [id number] mg Capsule 1 cap PO .UP TO TID PRN (Reason: UNKNOWN) Pancreatin 2000 1 cap PO .UP TO TID PRN (Reason: UNKNOWN) metoclopramide HCl [Reglan] 10 mg tablet 10 mg PO Q6H PRN (Reason: nausea and vomiting) Qty: 30 0RF Nu-Salt See Rx Instructions .ROUTE .COMPLEX Rx Instructions: prn omeprazole 40 mg capsule,delayed release(DR/EC) 40 mg PO DAILY sucralfate 100 mg/mL suspension 10 ml PO TID PRN (Reason: unknown) mirtazapine 15 mg tablet 15 mg PO BEDTIME PRN (Reason: Sleep) loratadine 10 mg tablet 10 mg PO DAILY PRN (Reason: Allergy Symptoms) Discontinued ondansetron 4 mg tablet,disintegrating 4 mg PO Q6H PRN (Reason: nausea and vomiting) Qty: 60 1RF Mylanta 200-200-20 mg/5 mL Suspension 15 ml PO QID PRN (Reason: UNKNOWN) Rx Instructions: administer between meals and at bedtime Discharge Orders: Discharge Order (Routine); Ordered 08/10/23 Ordered By: Troy Hopson Referrals: Antonio Alvarado MD [Primary Care Provider] - 1-3 days (We have notified your physician's clinic of the need for a follow-up appointment to be scheduled. If you have not heard from them within the next 2 business days, please call them directly. You may also reach out to our ecommerce marketing manager at [phone] and she can assist you.) Discharge Diet: Cardiac Discharge Activity: Resume usual activity Patient Instructions: Pancreatitis (ED), Pancreatitis (GEN), Cirrhosis of the Liver (DC), Alcohol Intoxication (DC), Abuse of Alcohol (DC), At-Risk Alcohol Use (DC), Acute Nausea and Vomiting (DC), Opioid Safety Activity Restrictions/Additional Instructions: - Please use phenobarbital as prescribed, taper as prescribed, do not drink operate machinery or drive while taking medication -Please abstain from alcohol consumption -Please drink plenty of electrolyte balanced fluids for the next 24 hours, avoid solid foods for now -If by tomorrow your abdomen improves, no nausea, no vomiting, advance to full liquid diet for at least another 24 to 48 hours -If you tolerate that then advance to a GI soft diet -Please follow-up with your meat counter clerk -Please abstain from any alcohol consumption Discharge Attestations Time Spent in Discharge Care*: greater than 30 min Status at Discharge: Cognitive status at discharge: cognitively intact, Behavioral status at discharge: cooperative, Quality Metrics Clinical Quality Measures [ No reported AMI, CVA or VTE this stay] Coding Level of Care Code 55757 Total time (in minutes) for Discharge: 45 Diagnoses Severe alcohol withdrawal with perceptual disturbances F10.932 Alcoholic gastritis K29.20 Subcutaneous hematoma T14.8XXA Alcoholic hepatitis K70.10 Acute on chronic pancreatitis K85.90; K86.1 Abdominal pain R10.13 Abdominal location: epigastric Dehydration E86.0 Lactic acidosis E87.20 Metabolic acidosis E87.20
== END 2023-08-10 13:30 | disposition home or self-care (01) | DRG 896 ==
LOC: ER 10:46 → ICU 10:56 → MEDSURG 08-08 03:30
PROVIDERS: Admitting Provider Family Medicine; Emergency Provider Internal Medicine; PCP Family Medicine Adult Medicine; Visit Provider Family Medicine
DX: F10.232 Alcohol dependence with withdrawal with perceptual disturbance (principal); K85.90 Acute pancreatitis without necrosis or infection, unspecified; K86.1 Other chronic pancreatitis; E87.20 Acidosis, unspecified; K29.20 Alcoholic gastritis without bleeding; K70.10 Alcoholic hepatitis without ascites; K21.9 Gastro-esophageal reflux disease without esophagitis; I10 Essential (primary) hypertension; F41.8 Other specified anxiety disorders; F41.0 Panic disorder [episodic paroxysmal anxiety]; F43.10 Post-traumatic stress disorder, unspecified; E86.0 Dehydration
CPT/HCPCS: 36415; 36573; 36592; 36600; 51702; 70450; 71045; 74177; 80053; 80061; 80306; 80307; 81001; 82247; 82248; 82803; 82977; 83036; 83605; 83690; 83735; 83880; 84100; 84145; 84443; 84484; 85025; 85610; 86140; 87040; 93005; 94664; 96372; 96374; 96375; 96376; 99285; C1751; C9113; J1170; J1630; J1650; J2060; J2405; J2543; J2560; J2765; J3411; J3475; J3490; J7030; J7120; Q9967

== ENCOUNTER 2023-09-01 17:33 | Inpatient (IN) | payer MEDICAID, SELFPAY ==
--- NOTE | 2023-09-01 17:34 | ECG_ITS ---
[facility] Test Date: 2023-09-01 Pat Name: Buddy Cowan Department: Room: Gender: Male Safety Analyst: : 1990 Requested By: Igor Isaac Order Number: [id number] Thomas MD: Chase Jerry M.D. Measurements Intervals [place] Rate: 118 P: 67 NM: 147 QRS: 54 QRSD: 73 T: 69 QT: 308 QTc: 432 Interpretive Statements SINUS TACHYCARDIA POSSIBLE LEFT ATRIAL ENLARGEMENT [-0.1mV P-WAVE IN V1/V2] ABNORMAL RHYTHM ECG Compared to ECG 08/06/2023 18:22:03 Heart rate has increased Electronically Signed On 09-02-2023 13:53:46 BILLING CONTROL CLERK by Chase Jerry M.D. [email or web address]
--- NOTE | 2023-09-01 17:35 | ED_ITS ---
Documented by User: Igor Diaz DO 09/04/23 11:09 HPI - Abdominal Pain General: Chief Complaint: Abdominal Pain Stated Complaint: ABD PAIN Time Seen by Provider: 09/01/23 17:34 Source: patient Mode of arrival: EMS History of Present Illness: 33-year-old male presents emergency room complaining epigastric left upper quadrant abdominal pain. He is been in and out of the hospital recently with a recurrent pancreatitis. He admits to have been drinking last night. He has a history of chronic alcoholism and recurrent pancreatitis. MD elicited complaint: abdominal pain Onset (ago): hour(s) Pain Consistency: constant Location: Epigastric and LUQ Severity: moderate Quality: sharp Radiation: none Exacerbating factors: nothing Relieving factors: nothing Associated Symptoms: Reports hematemesis, nausea and vomiting; Denies anorexia, belching, bloating, change in bowel habits, change in stool character, chills, coffee ground emesis, constipation, GI cramping, diarrhea, dyspepsia, dysuria, excessive flatus, fever(s), heartburn, hematochezia, hematuria, fecal incontinence, loose stools, melena, poor appetite and syncope Review of Systems Const: Denies: fever(s) or chills Card: Denies: chest pain or syncope Resp: Denies: dyspnea GI: Reports: abdominal pain, nausea, vomiting and hematemesis; Denies: coffee ground emesis, heartburn, diarrhea, constipation, bloating, GI cramping, belching, excessive flatus, fecal incontinence, change in bowel habits, change in stool character, hematochezia or melena : Denies: dysuria, urinary frequency, urinary urgency or hematuria Musc: Denies: neck pain or back pain Skin/Breast: Denies: rash PFSH ED PFSH: Medical History Acute on chronic pancreatitis Acute posttraumatic stress disorder Alcohol abuse Anxiety and depression Chronic nasal congestion Chronic nausea GERD (gastroesophageal reflux disease) Gynecomastia, male Hyperlipidemia Hypertension Panic attack Transaminitis Surgical History No pertinent past surgical history Family History Father Hypertension Social History Smoking and tobacco/nicotine status: never used tobacco/nicotine Alcohol intake: current Alcohol intake frequency: 0-2 Drinks per Day Substance/Drug Use: never Marital status: Number of children: 5 Current occupational status: employed Current gender identity: Male Physical Exam Const: GENERAL APPEARANCE: cooperative and comfortable ORIENTATION/CONSCIOUSNESS: Yes awake, Yes oriented to person, Yes oriented to place and Yes oriented to time HENMT: COMMON NORMALS: normocephalic, atraumatic and hearing grossly normal bilaterally HEAD & SCALP: normocephalic and atraumatic Resp: COMMON NORMALS: normal respiratory effort, No retractions, No use of ac cessory muscles and clear to auscultation bilaterally AUSCULTATION: clear to auscultation bilaterally Cardio: COMMON NORMALS: regular rate, regular rhythm and No murmurs present (Cardio) RATE: regular rate RHYTHM: regular rhythm GI: COMMON NORMALS: Soft to palpation and No hepatosplenomegaly present AUSCULTATION: Yes normoactive bowel sounds PALPATION: Yes Soft to palpation, Yes Tenderness to palpation present (GI) (Epigastric left upper quadrant pain), No Guarding due to palpation present (GI) and Yes No hepatosplenomegaly present : COMMON NORMALS: Yes no CVA tenderness BLADDER/KIDNEY EXAM: Yes no CVA tenderness Back/Pelvis: COMMON NORMALS: no CVA tenderness Extremity: COMMON NORMALS: normal to inspection, capillary refill normal, no clubbing, cyanosis or edema, no calf tenderness and no pedal edema Neuro: SENSORIUM/ORIENTATION: Yes oriented to person, Yes oriented to place and Yes oriented to time Skin: COMMON NORMALS: no rashes or lesions noted GENERAL SKIN EXAM: no rashes or lesions noted Course Vital Signs: Vital signs: Vital Signs Temperature 98.3 F 09/04/23 08:00 Pulse Rate 123 H 09/04/23 08:29 Respiratory Rate 18 09/04/23 08:29 Blood Pressure 148/99 09/04/23 08:00 Pulse Oximetry 99 09/04/23 08:29 Oxygen Delivery Me thod Room Air 09/04/23 08:29 MDM - Abdominal Pain Medical Decision Making Care signed out to Dr. Sharif at change of shift. See final notes for diagnosis and disposition. Patient presents here with vomiting along with alcohol intoxication he is dehydrated here along with hyponatremia likely from his vomiting does have ketones elevated lactate again likely from dehydration and alcoholic ketoacidosis. Start him on fluids here spoke to hospitalist will admit. Lab Data 09/04/23 05:10 09/04/23 05:10 Labs/Radiology: Radiology Impressions Abdomen Ultrasound 09/03/23 13:12 IMPRESSION: 1. Hepatomegaly with fatty infiltration of the liver. 2. Well-circumscribed lesion in the right hepatic lobe was seen on the prior CT scan as well. Further evaluation with non-emergent liver MRI is recommended. (Reference: Nathan) REFERENCES: Nathan CODY, et al. Management of Incidental Liver Lesions on CT: A White Paper of the ACR Incidental Findings Committee. J Am Daysi Radiol. 2017;14(11):8141-8234. Laboratory Results WBC 5.03 10^3/uL (3.29-11.43) 09/01/23 17:55 RBC 4.80 10^6/uL (3.85-5.65) 09/01/23 17:55 Hgb 15.70 g/dL (11.27-16.99) 09/01/23 17:55 Hct 44.3 % (37-53) 09/01/23 17:55 MCV 92.3 fl (82-101) 09/01/23 17:55 MCH 32.7 pg (27-33) 09/01/23 17:55 MCHC 35.4 g/dL (30-55) 09/01/23 17:55 RDW 11.7 % (12.1-15.1) L 09/01/23 17:55 Plt Count 125 10^3/cmm (157-399) L 09/01/23 17:55 MPV 11.0 fL (7.4-10.4) H 09/01/23 17:55 Neut % (Auto) 75.4 % 09/01/23 17:55 Lymph % (Auto) 14.5 % 09/01/23 17:55 Dickenson % (Auto) 9.5 % 09/01/23 17:55 Eos % (Auto) 0.0 % 09/01/23 17:55 Baso % (Auto) 0.4 % 09/01/23 17:55 Neut # (Auto) 3.79 10^3/uL (1.8-7.7) 09/01/23 17:55 Lymph # (Auto) 0.7 10^3/uL (0.8-4.8) L 09/01/23 17:55 Dickenson # (Auto) 0.5 10^3/uL (0.2-0.9) 09/01/23 17:55 Eos # (Auto) 0.0 10^3/uL (0.0-0.8) 09/01/23 17:55 Baso # (Auto) 0.0 10^3/uL (0.0-0.1) 09/01/23 17:55 Nucleated RBC % (auto) 0 % 09/01/23 17:55 Nucleated RBCs # 0.0 /100WBC 09/01/23 17:55 Specimen Type Arterial 09/01/23 18:58 Sample Site Radial, right 09/01/23 18:58 ABG pH 7.48 (7.35-7.45) H 09/01/23 18:58 ABG pCO2 21.2 mmHg (35-45) L 09/01/23 18:58 ABG pO2 115.0 mmHg (80.0-100.0) H 09/01/23 18:58 ABG HCO3 15.8 mmol/L (22-26) L 09/01/23 18:58 ABG Base Excess -5.2 mmol/L (-2.0-2.0) L 09/01/23 18:58 Ricardo Test Pos 09/01/23 18:58 Hematocrit 46.8 % (42-52) 09/01/23 18:58 O2 Delivery Device Room air 09/01/23 18:58 Sales And Marketing Vice President ID [email or web address] 09/01/23 18:58 Sodium 125 mmol/L (136-145) L 09/01/23 23:12 Potassium 4.1 mmol/L (3.5-5.1) 09/01/23 17:55 Chloride 75 mmol/L (98-107) L 09/01/23 17:55 Carbon Dioxide 13 mmol/L (22-29) L 09/01/23 17:55 Anion Gap 36.1 (5-19) H 09/01/23 17:55 BUN 18 mg/dL (6-20) 09/01/23 17:55 Creatinine 0.7 mg/dL (0.7-1.2) 09/01/23 17:55 GFR Calculation 129.9 mL/min (90-130) 09/01/23 17:55 Glucose 89 mg/dL (65-115) 09/01/23 17:55 Estimat Average Glucose 68 09/01/23 20:10 Hemoglobin A1c 4.0 % (4.0-6.0) 09/01/23 20:10 Calculated Osmolality 251 mOsm/kg (285-295) L 09/01/23 17:55 Lactic Acid 4.1 mmol/L (0.5-2.2) H* 09/01/23 17:55 Calcium 10.2 mg/dL (8.5-10.5) 09/01/23 17:55 Total Bilirubin 2.3 mg/dL (0.15-1.2) H 09/01/23 17:55 AST 115 U/L (0-40) H 09/01/23 17:55 ALT 62 U/L (0-41) H 09/01/23 17:55 Alkaline Phosphatase 162 U/L (40-130) H 09/01/23 17:55 Total Protein 8.5 g/dL (6.6-8.7) 09/01/23 17:55 Albumin 5.2 g/dL (3.5-5.2) 09/01/23 17:55 Globulin 3.3 g/dL (1.3-4.6) 09/01/23 17:55 Lipase 106 U/L (13-60) H 09/01/23 17:55 Urine Color Marium (Yellow) 09/01/23 23:25 Urine Appearance Clear (CLEAR) 09/01/23 23:25 Urine pH 5 (5-7) 09/01/23 23:25 Ur Specific Adrian 1.030 (1.005-1.030) 09/01/23 23:25 Urine Protein 1+ (Negative) H 09/01/23 23:25 Urine Glucose (UA) Norm (Normal) 09/01/23 23:25 Urine Ketones 3+ (Negative) H 09/01/23 23:25 Urine Blood Neg (Negative) 09/01/23 23: Urine Nitrate Negative (Negative) 09/01/23 23: Urine Bilirubin 1+ (Negative) H 09/01/23 23:25 Urine Urobilinogen Neg mg/dL (Negative) 09/01/23 23:25 Ur Leukocyte Esterase Negative (Negative) 09/01/23 23:25 Urine RBC Rare /hpf (0-2) 09/01/23 23:25 Urine WBC Rare /hpf (0-5) 09/01/23 23:25 Ur Squamous Epith Cells 0-4 /hpf (0-5) H 09/01/23 23:25 Amorphous Sediment 2+ /hpf 09/01/23 23:25 Urine Bacteria None /hpf (NONE) 09/01/23 23:25 Urine Mucus 3+ /hpf 09/01/23 23:25 Ethyl Alcohol 12 mg/dL (0-10) H 09/01/23 17:55 Serum Ketones Positive (Negative) H 09/01/23 17:55 Discharge Plan Discharge Patient Disposition: Admitted As Inpatient Admit Provider: Nicole Flowers Clinical Impression: Acute alcohol intoxication, Acute hyponatremia, Dehydration Condition: Stable Coding Level of Care Code ED Benzene Worker for Chg Fwd Documented by User: Yamil Sharif MD 09/01/23 19:29 HPI - Abdominal Pain General: Chief Complaint: Abdominal Pain Stated Complaint: ABD PAIN Time Seen by Provider: 09/01/23 17:34 PFSH ED PFSH: Medical History Acute on chronic pancreatitis Acute posttraumatic stress disorder Alcohol abuse Anxiety and depression Chronic nasal congestion Chronic nausea GERD (gastroesophageal reflux disease) Gynecomastia, male Hyperlipidemia Hypertension Panic attack Transaminitis Surgical History No pertinent past surgical history Family History Father Hypertension Social History Smoking and tobacco/nicotine status: never used tobacco/nicotine Alcohol intake: current Alcohol intake frequency: 0-2 Drinks per Day Substance/Drug Use: never Marital status: Number of children: 5 Current occupational status: employed Current gender identity: Male Course Vital Signs: Vital signs: Vital Signs Temperature 98.3 F 09/04/23 08:00 Pulse Rate 123 H 09/04/23 08:29 Respiratory Rate 18 09/04/23 08:29 Blood Pressure 148/99 09/04/23 08:00 Pulse Oximetry 99 09/04/23 08:29 Oxygen Delivery Me thod Room Air 09/04/23 08:29 MDM - Abdominal Pain Medical Decision Making Patient presents here with vomiting along with alcohol intoxication he is dehydrated here along with hyponatremia likely from his vomiting does have ketones elevated lactate again likely from dehydration and alcoholic ketoacidosis. Start him on fluids here spoke to hospitalist will admit. Medical Records I reviewed the patient's medical records. Lab Data I reviewed the patient's lab results. 09/04/23 05:10 09/04/23 05:10 Labs/Radiology: Radiology Impressions Abdomen Ultrasound 09/03/23 13:12 IMPRESSION: 1. Hepatomegaly with fatty infiltration of the liver. 2. Well-circumscribed lesion in the right hepatic lobe was seen on the prior CT scan as well. Further evaluation with non-emergent liver MRI is recommended. (Reference: Nathan) REFERENCES: Nathan CODY, et al. Management of Incidental Liver Lesions on CT: A White Paper of the ACR Incidental Findings Committee. J Am Daysi Radiol. 2017;14(11):8654-2608. Laboratory Results WBC 5.03 10^3/uL (3.29-11.43) 09/01/23 17:55 RBC 4.80 10^6/uL (3.85-5.65) 09/01/23 17:55 Hgb 15.70 g/dL (11.27-16.99) 09/01/23 17:55 Hct 44.3 % (37-53) 09/01/23 17:55 MCV 92.3 fl (82-101) 09/01/23 17:55 MCH 32.7 pg (27-33) 09/01/23 17:55 MCHC 35.4 g/dL (30-55) 09/01/23 17:55 RDW 11.7 % (12.1-15.1) L 09/01/23 17:55 Plt Count 125 10^3/cmm (157-399) L 09/01/23 17:55 MPV 11.0 fL (7.4-10.4) H 09/01/23 17:55 Neut % (Auto) 75.4 % 09/01/23 17:55 Lymph % (Auto) 14.5 % 09/01/23 17:55 Dickenson % (Auto) 9.5 % 09/01/23 17:55 Eos % (Auto) 0.0 % 09/01/23 17:55 Baso % (Auto) 0.4 % 09/01/23 17:55 Neut # (Auto) 3.79 10^3/uL (1.8-7.7) 09/01/23 17:55 Lymph # (Auto) 0.7 10^3/uL (0.8-4.8) L 09/01/23 17:55 Dickenson # (Auto) 0.5 10^3/uL (0.2-0.9) 09/01/23 17:55 Eos # (Auto) 0.0 10^3/uL (0.0-0.8) 09/01/23 17:55 Baso # (Auto) 0.0 10^3/uL (0.0-0.1) 09/01/23 17:55 Nucleated RBC % (auto) 0 % 09/01/23 17:55 Nucleated RBCs # 0.0 /100WBC 09/01/23 17:55 Specimen Type Arterial 09/01/23 18:58 Sample Site Radial, right 09/01/23 18:58 ABG pH 7.48 (7.35-7.45) H 09/01/23 18:58 ABG pCO2 21.2 mmHg (35-45) L 09/01/23 18:58 ABG pO2 115.0 mmHg (80.0-100.0) H 09/01/23 18:58 ABG HCO3 15.8 mmol/L (22-26) L 09/01/23 18:58 ABG Base Excess -5.2 mmol/L (-2.0-2.0) L 09/01/23 18:58 Ricardo Test Pos 09/01/23 18:58 Hematocrit 46.8 % (42-52) 09/01/23 18:58 O2 Delivery Device Room air 09/01/23 18:58 Sales And Marketing Vice President ID [email or web address] 09/01/23 18:58 Sodium 125 mmol/L (136-145) L 09/01/23 23:12 Potassium 4.1 mmol/L (3.5-5.1) 09/01/23 17:55 Chloride 75 mmol/L (98-107) L 09/01/23 17:55 Carbon Dioxide 13 mmol/L (22-29) L 09/01/23 17:55 Anion Gap 36.1 (5-19) H 09/01/23 17:55 BUN 18 mg/dL (6-20) 09/01/23 17:55 Creatinine 0.7 mg/dL (0.7-1.2) 09/01/23 17:55 GFR Calculation 129.9 mL/min (90-130) 09/01/23 17:55 Glucose 89 mg/dL (65-115) 09/01/23 17:55 Estimat Average Glucose 68 09/01/23 20:10 Hemoglobin A1c 4.0 % (4.0-6.0) 09/01/23 20:10 Calculated Osmolality 251 mOsm/kg (285-295) L 09/01/23 17:55 Lactic Acid 4.1 mmol/L (0.5-2.2) H* 09/01/23 17:55 Calcium 10.2 mg/dL (8.5-10.5) 09/01/23 17:55 Total Bilirubin 2.3 mg/dL (0.15-1.2) H 09/01/23 17:55 AST 115 U/L (0-40) H 09/01/23 17:55 ALT 62 U/L (0-41) H 09/01/23 17:55 Alkaline Phosphatase 162 U/L (40-130) H 09/01/23 17:55 Total Protein 8.5 g/dL (6.6-8.7) 09/01/23 17:55 Albumin 5.2 g/dL (3.5-5.2) 09/01/23 17:55 Globulin 3.3 g/dL (1.3-4.6) 09/01/23 17:55 Lipase 106 U/L (13-60) H 09/01/23 17:55 Urine Color Marium (Yellow) 09/01/23 23:25 Urine Appearance Clear (CLEAR) 09/01/23 23:25 Urine pH 5 (5-7) 09/01/23 23:25 Ur Specific Adrian 1.030 (1.005-1.030) 09/01/23 23:25 Urine Protein 1+ (Negative) H 09/01/23 23:25 Urine Glucose (UA) Norm (Normal) 09/01/23 23:25 Urine Ketones 3+ (Negative) H 09/01/23 23:25 Urine Blood Neg (Negative) 09/01/23 23:25 Urine Nitrate Negative (Negative) 09/01/23 23:25 Urine Bilirubin 1+ (Negative) H 09/01/23 23:25 Urine Urobilinogen Neg mg/dL (Negative) 09/01/23 23:25 Ur Leukocyte Esterase Negative (Negative) 09/01/23 23:25 Urine RBC Rare /hpf (0-2) 09/01/23 23:25 Urine WBC Rare /hpf (0-5) 09/01/23 23:25 Ur Squamous Epith Cells 0-4 /hpf (0-5) H 09/01/23 23:25 Amorphous Sediment 2+ /hpf 09/01/23 23:25 Urine Bacteria None /hpf (NONE) 09/01/23 23:25 Urine Mucus 3+ /hpf 09/01/23 23:25 Ethyl Alcohol 12 mg/dL (0-10) H 09/01/23 17:55 Serum Ketones Positive (Negative) H 09/01/23 17:55 No radiology studies performed this visit Discharge Plan Discharge Patient Disposition: Admitted As Inpatient Admit Provider: Nicole Flowers Clinical Impression: Acute alcohol intoxication, Acute hyponatremia, Dehydration Condition: Stable Coding Level of Care Code ED Benzene Worker for Al Duran
[2023-09-01 18:10] VITALS: BP 157/104; PULSE 132; RESP 18; TEMP 37.1; O2SAT 99; BMI 24.4
[2023-09-01 18:14] LABS: Basophils % 0.4 %; Hematocrit 44.3 % (37-53); Lymphocytes # 0.7 10^3/uL (0.8-4.8); Lymphocytes % 14.5 %; Mean Corpuscular HGB Conc 35.4 g/dL (30-55); Mean Corpuscular Hemoglobin 32.7 pg (27-33); Mean Corpuscular Volume 92.3 fl (82-101); Monocytes # 0.5 10^3/uL (0.2-0.9); Monocytes % 9.5 %; Neutrophils # 3.79 10^3/uL (1.8-7.7); Neutrophils % 75.4 %; Nucleated Red Blood Cells % 0 %; Platelet Count 125 10^3/cmm (157-399); Red Cell Distribution Width 11.7 % (12.1-15.1); White Blood Count 5.03 10^3/uL (3.29-11.43)
[2023-09-01] MEDS: sodium chloride 0.9% 1,000 ML 999 ML IV ×2 (18:22→19:10)
[2023-09-01] MEDS: ondansetron 2 mg/ML SDV 2 mL 4 MG IVP (18:23)
[2023-09-01 18:31] LABS: Alanine Aminotransferase 62 U/L (0-41); Albumin Level 5.2 g/dL (3.5-5.2); Alkaline Phosphatase 162 U/L (40-130); Anion Gap 36.1 (5-19); Aspartate Amino Transferase 115 U/L (0-40); Blood Urea Nitrogen 18 mg/dL (6-20); Calcium 10.2 mg/dL (8.5-10.5); Carbon Dioxide 13 mmol/L (22-29); Chloride 75 mmol/L (98-107); Globulin 3.3 g/dL (1.3-4.6); Glomerular Filtration Rate 129.9 mL/min (90-130); Glucose 89 mg/dL (65-115); Lipase 106 U/L (13-60); Osmolality Calculated 251 mOsm/kg (285-295); Potassium 4.1 mmol/L (3.5-5.1); Sodium 120 mmol/L (136-145); Total Bilirubin 2.3 mg/dL (0.15-1.2); Total Protein 8.5 g/dL (6.6-8.7)
[2023-09-01 19:02] LABS: Ketone (Acetest) Serum Positive (Negative)
[2023-09-01 19:07] LABS: Lactic Sepsis W/Reflex 4.1 mmol/L (0.5-2.2)
[2023-09-01 19:08] LABS: ABG PCO2 21.2 mmHg (35-45); ABG PH Result 7.48 (7.35-7.45); Arterial Blood Gas Hematocrit 46.8 % (42-52); Base Excess ABG -5.2 mmol/L (-2.0-2.0); Blood Gas Allen Test Pos; Blood Gas Sample Site Radial, right; Blood Gas Sample Type Arterial; HCO3 ABG 15.8 mmol/L (22-26); Oxygen Device ROOM AIR
[2023-09-01] MEDS: multivitamin therapeutic Tablet 1 TAB PO (19:09)
--- NOTE | 2023-09-01 19:16 | P.HP_ITS ---
Providers/Chief Complaint Primary Care Provider: Antonio Alvarado MD Chief Complaint: ABD PAIN History of Present Illness Buddy Cowan is a 33 year old male with history of albuterol, alcohol- related hepatitis, withdrawal seizures in the past, recurrent admissions, recurrent pancreatitis presented with chief complaint of nausea vomiting, secondary to alcohol use around Thanksgiving. In the ER he was diagnosed with severe hyponatremia, dehydration lactic acidemia with hypotension and required 2 L IV fluids, he is not showing any signs of sepsis, abnormal transaminases, lipase 106, serum ketones positive Patient is stating that he could not maintain his sobriety around Thanksgiving blaming that he should not be around alcohol at all. He has been vomiting for last 24 to 30 hours, recurrent nausea vomiting he has also noticed blood in his vomitus, patient is stating that he was having pancreatitis issues even before where he got worse after drinking alcohol. Patient is not diabetic, stating that he has not been able to keep anything down. Review of Systems Const: Reports: chills and body aches; Denies: fever(s) Eyes: Denies: change in vision ENMT: Denies: throat pain Card: Denies: chest pain Resp: Denies: dyspnea GI: Reports: abdominal pain, nausea and vomiting : Denies: flank pain Medications/Allergies Home Medications Medication Instructions Recorded Confirmed Last Taken Type lisinopril 40 mg tablet 40 mg PO DAILY 01/30/21 08/06/23 07/08/23 History resveratrol 250 mg capsule 250 - 500 mg PO DAILY PRN 01/18/22 08/06/23 1 Week Ago History Inflammation ~07/01/23 Nu-Salt See Rx Instructions .Route .COMPLEX 11/30/22 08/06/23 1 Week Ago History ~07/01/23 magnesium hydroxide 400 mg/5 mL 30 ml PO BID PRN Constipation 12/22/22 08/06/23 1 Week Ago History oral suspension (Milk of Magnesia) ~07/01/23 trazodone 50 mg tablet 25 mg PO BEDTIME PRN Sleep #45 tabs 02/27/23 08/06/23 1 Week Ago Rx ~07/01/23 Pancreat-Bet [id number] 250 1 cap PO .UP TO TID PRN UNKNOWN 04/14/23 08/06/23 1 Week Ago History mg-162 mg-65 mg-125 mg capsule ~07/01/23 (Super Enzyme) Pancreatin 2000 1 cap PO .UP TO TID PRN UNKNOWN 04/14/23 08/06/23 1 Week Ago History ~07/01/23 vitamin B complex 1 tab PO DAILY PRN UNKNOWN 04/14/23 08/06/23 1 Week Ago History ~07/01/23 metoclopramide HCl 10 mg tablet 10 mg PO Q6H PRN nausea and 04/27/23 08/06/23 1 Week Ago Rx (Reglan) vomiting #30 tabs ~07/01/23 loratadine 10 mg tablet 10 mg PO DAILY PRN Allergy Symptoms 08/06/23 08/06/23 Unknown History mirtazapine 15 mg tablet 15 mg PO BEDTIME PRN Sleep 08/06/23 08/06/23 Unknown History omeprazole 40 mg capsule,delayed 40 mg PO DAILY 08/06/23 08/06/23 Unknown History release sucralfate 100 mg/mL oral 10 ml PO TID PRN unknown 08/06/23 08/06/23 Unknown History suspension clonidine HCl 0.1 mg tablet 0.1 mg PO BID PRN Blood Pressure 08/07/23 Unknown Rx #60 tabs folic acid 1 mg tablet 1 mg PO DAILY 30 days #30 tabs 08/10/23 Unknown Rx magnesium L-lactate 84 mg 84 mg PO DAILY 30 days #30 tabs 08/10/23 Unknown Rx tablet,extended release (Magtab) multivitamin with folic acid 400 1 tab PO DAILY 30 days #30 tabs 08/10/23 Unknown Rx mcg tablet (Thera) phenobarbital 20 mg/5 mL (4 mg/mL) See Rx Instructions .Route 08/10/23 Unknown Rx oral elixir .COMPLEX #30 mL thiamine mononitrate (vit B1) 100 100 mg PO DAILY 30 days #30 tabs 08/10/23 Unknown Rx mg tablet (Vitamin B-1 (mononitrate)) Allergies Allergy/AdvReac Type Severity Reaction Status Date / Time aspirin Allergy Unknown ADR-Gastrointestinal Verified 08/03/23 07:37 Upset NSAIDS (Non-Steroidal Allergy Unknown Unknown Verified 08/03/23 07:37 Anti-Inflamma acetaminophen [From Tylenol] Allergy ADR-Gastrointestinal Verified 08/03/23 07:37 Upset naproxen [From Aleve] Allergy Unknown Verified 08/03/23 07:37 zolpidem [From Ambien] Allergy ADR-Nightma Verified 08/03/23 07:37 re buspirone AdvReac Intermediate ADR-Anxiety Verified 08/03/23 07:37 PFSH Acute PFSH: Medical History Acute on chronic pancreatitis Acute posttraumatic stress disorder Alcohol abuse Anxiety and depression Chronic nasal congestion Chronic nausea GERD (gastroesophageal reflux disease) Gynecomastia, male Hyperlipidemia Hypertension Panic attack Transaminitis Surgical History No pertinent past surgical history Family History Father Hypertension Social History Smoking and tobacco/nicotine status: never used tobacco/nicotine Alcohol intake: current Alcohol intake frequency: 0-2 Drinks per Day Substance/Drug Use: never Marital status: Number of children: 5 Current occupational status: employed Current gender identity: Male Vitals/I&O/Wt Last Vital Signs Temp 98.7 F 09/01/23 18:10 Pulse 132 H 09/01/23 18:10 Resp 18 09/01/23 18:10 BP 157/104 09/01/23 18:10 Pulse Ox 99 09/01/23 18:10 O2 Del Method Room Air 09/01/23 18:10 Weight last 48 hrs Weight 81.647 kg Physical Exam Narrative: No active signs of seizure Mild to moderate withdrawal symptoms present Dehydrated Anxious Tachycardic Abdomen tender on palpation epigastric region S1, S2 Able to answer questions Nonfocal neuro exam GCS 15 Currently on room air Data 09/01/23 17:55 09/01/23 17:55 A&P Assessment and plan (1) Acute hyponatremia: (2) Dehydration: (3) Alcoholic gastritis: (4) Acute alcohol intoxication: (5) Thrombocytopenia: (6) Metabolic acidosis: (7) Acute on chronic pancreatitis: (8) Dehydration: (9) Alcoholic ketoacidosis: (10) Generalized anxiety disorder with panic attacks: Plan Alcoholic ketoacidosis Severe dehydration Start phenobarbital scheduled regimen He can receive up to 800 mg of phenobarbital per day I will continue thiamine and folic acid For pancreatitis I will keepHim n.p.o. Watch for any signs of necrotic pancreas lactic acidemia is most likely related to severe dehydration Continue IV fluids Severe hyponatremia We will give 1 bag of hypertonic saline and continue normal saline He will be n.p.o. He will need to stay fluid restricted Recheck sodium every 4 hours Sherrell-Elam tear? Hemoglobin stable Patient noticed blood in vomiting May need EGD outpatient Admit to ICU Full code N.p.o. At risk of DTs My threshold to intubate and will stay low Attestations Medical Necessity Statement*: More than 2 midnights anticipated Coding Level of Care Code Critical Care >/= 30 minutes Critical care time (in minutes): 35 The high probability of a clinically significant, sudden or life threatening deterioration, as referenced in this documentation, required my full and direct attention, intervention and personal management. The critical care time shown is in addition to time spent performing any reported separately billable procedures and includes the following: [x] Data and vital sign review and interpretation [x ] Patient assessment, examination and intervention [x] Medication orders and management [x] Patient/Family updates as able [x] Care Coordination and Documentation. Diagnoses Acute hyponatremia E87.1 Dehydration E86.0 Alcoholic gastritis K29.20 Acute alcohol intoxication F10.929 Thrombocytopenia D69.6 Metabolic acidosis E87.20 Acute on chronic pancreatitis K85.90; K86.1 Alcoholic ketoacidosis E87.29 Generalized anxiety disorder with panic attacks F41.1; F41.0
[2023-09-01 19:35] LABS: Alcohol Level 12 mg/dL (0-10)
[2023-09-01] MEDS: PHENobarbital 130 mg/mL SDV 1 mL 60 MG IV (20:01)
[2023-09-01 20:05] VITALS: BP 165/100; PULSE 123; RESP 16; O2SAT 100
[2023-09-01 20:36] LABS: Estmated Average Glucose 68
[2023-09-01 20:37] LABS: Reflex Lactate Order REFLEX LACTIC ORDERD
[2023-09-01 20:43] LABS: Sodium 127 mmol/L (136-145)
[2023-09-01] MEDS: morphine 4 mg/mL SDV 1 mL 2 MG IVP (21:02)
[2023-09-01 21:04] VITALS: BP 155/112; PULSE 123; RESP 16; O2SAT 97
[2023-09-01] MEDS: LORazepam 2 mg/mL INJ 1 mL IVP (22:27)
[2023-09-01 22:30] VITALS: BP 162/108; PULSE 133; RESP 18; O2SAT 97
[2023-09-01 23:30] VITALS: BP 145/106; PULSE 122; RESP 16; O2SAT 98
[2023-09-01 23:41] LABS: Sodium 125 mmol/L (136-145)
[2023-09-01 23:56] LABS: Add Urine Microscopic? YES; Bilirubin Urine 1+ (Negative); Blood Urine Neg (Negative); Glucose Urine UA Norm (Normal); Ketones Urine 3+ (Negative); Leukocyte Esterase Urine Negative (Negative); Nitrate Urine Negative (Negative); Protein Urine 1+ (Negative); Urine Appearance Clear (CLEAR); Urine Color Amber (Yellow); Urobilinogen Urine Neg (Negative); pH Urine 5 (5-7)
[2023-09-01 23:57] LABS: Add Urine Culture? No; Amorphous Sediment Urine 2+ /hpf; Mucus Urine 3+ /hpf; RBC Urine RARE /hpf (0-2); Squamous Epithelial Cell Urine 0-4 /hpf (0-5); WBC Urine RARE /hpf (0-5)
[2023-09-02] VITALS (50 sets, daily range): BP systolic 125–163; BP diastolic 85–113; PULSE 69–125; RESP 12–22; TEMP 36.8–37.3; O2SAT 97–100; BMI 25.9; BMI 25.7
[2023-09-02] MEDS: sodium chloride 0.9% 1,000 ML 50 ML IV (01:23)
[2023-09-02] MEDS: PHENobarbital 130 mg/mL SDV 1 mL 120 MG IV ×8 (01:23→21:24)
[2023-09-02] MEDS: metoprolol tartrate 25 mg Tablet PO ×3 (01:23→21:24)
[2023-09-02] MEDS: morphine 4 mg/mL SDV 1 mL 2 MG IVP ×5 (02:01→19:39)
[2023-09-02 02:08] LABS: Lactic Acid level (Lactate) 1.1 mmol/L (0.5-2.2)
--- NOTE | 2023-09-02 03:41 | PC.NURSE ---
Pain Patient complaining of severe abdominal pain despite morphine administration. Dr. Flowers contacted; order received for 0.2 mg dilaudid IVP once. See MAR for details.
[2023-09-02 04:11] LABS: Basophils % 0.4 %; Hematocrit 39.9 % (37-53); Lymphocytes % 20.9 %; Mean Corpuscular HGB Conc 35.3 g/dL (30-55); Mean Corpuscular Hemoglobin 33.2 pg (27-33); Mean Corpuscular Volume 93.9 fl (82-101); Mean Platelet Volume 11.3 fL (7.4-10.4); Monocytes # 0.6 10^3/uL (0.2-0.9); Monocytes % 13.5 %; Neutrophils # 3.04 10^3/uL (1.8-7.7); Nucleated Red Blood Cells % 0 %; Platelet Count 116 10^3/cmm (157-399); Red Blood Count 4.25 10^6/uL (3.85-5.65); Red Cell Distribution Width 11.9 % (12.1-15.1); White Blood Count 4.68 10^3/uL (3.29-11.43)
[2023-09-02] MEDS: HYDROmorphone 1 mg/mL INJ 1 mL 0.2 MG IVP (04:14)
[2023-09-02] MEDS: ondansetron 2 mg/ML SDV 2 mL 4 MG IVP ×4 (04:19→19:39)
[2023-09-02 04:30] LABS: Alanine Aminotransferase 50 U/L (0-41); Albumin Level 4.7 g/dL (3.5-5.2); Alkaline Phosphatase 137 U/L (40-130); Anion Gap 25.8 (5-19); Aspartate Amino Transferase 85 U/L (0-40); Blood Urea Nitrogen 16 mg/dL (6-20); Calcium 9.3 mg/dL (8.5-10.5); Carbon Dioxide 18 mmol/L (22-29); Chloride 85 mmol/L (98-107); Creatinine Clr Calc Pharmacy 172.3812; Globulin 2.8 g/dL (1.3-4.6); Glomerular Filtration Rate 129.9 mL/min (90-130); Glucose 76 mg/dL (65-115); Magnesium 2.1 mg/dL (1.7-2.3); Osmolality Calculated 260 mOsm/kg (285-295); Potassium 3.8 mmol/L (3.5-5.1); Sodium 125 mmol/L (136-145); Total Bilirubin 1.6 mg/dL (0.15-1.2); Total Protein 7.5 g/dL (6.6-8.7)
[2023-09-02 04:39] LABS: Vitamin B12 1460 pg/mL (232-1245)
[2023-09-02 04:50] LABS: Phosphorus 3.9 mg/dL (2.5-4.5)
[2023-09-02 07:57] LABS: Sodium 127 mmol/L (136-145)
[2023-09-02] MEDS: folic acid 1 mg Tablet PO (08:01)
[2023-09-02] MEDS: lisinopril 10 mg Tablet PO (08:01)
[2023-09-02] MEDS: thiamine 100 mg Tablet PO (08:02)
--- NOTE | 2023-09-02 08:40 | PC.PHAR ---
PT STATES HE IS OFF ALL MEDICATIONS EXCEPT OMEPRAZOLE 40 MG, LISINOPRIL 40 MG, FOLIC ACID 1 MG, AND CLONIDINE 0.1 MG. 09/02/23
[2023-09-02 11:44] LABS: Sodium 127 mmol/L (136-145)
--- NOTE | 2023-09-02 22:31 | P.PN_ITS ---
Subjective Subjective: This morning he is feeling tired. Reports that hallucinations last night which have improved. Vitals/I&O/Wt Last Vital Signs Temp 98.7 F 09/02/23 05:44 Pulse 72 09/02/23 18:00 Resp 19 H 09/02/23 19:39 BP 143/98 09/02/23 18:00 Pulse Ox 100 09/02/23 19:39 O2 Del Method Room Air 09/02/23 04:15 09/02/23 09/02/23 09/02/23 06:59 14:59 22:59 Intake Total 999 / 1999 Balance 999 / 1999 Weight last 48 hrs Weight 86.183 kg Weight 85.865 kg Weight 86.591 kg Weight 81.647 kg Physical Exam Narrative: Wakes up to voice. Const: GENERAL APPEARANCE: cooperative and disheveled HENMT: COMMON NORMALS: oropharynx normal Neck/C-Spine: COMMON NORMALS: no JVD Resp: COMMON NORMALS: normal respiratory effort and clear to auscultation bilaterally AUSCULTATION: clear to auscultation bilaterally Cardio: COMMON NORMALS: no JVD, regular rhythm, S1 normal heart sound present, S2 normal heart sound present and No murmurs present (Cardio) RHYTHM: regular rhythm HEART SOUNDS: S1 normal heart sound present and S2 normal heart sound present GI: COMMON NORMALS: Normal to inspection, nondistended, normoactive bowel sounds present, Soft to palpation and non-tender PALPATION: Yes Soft to palpation Extremity: COMMON NORMALS: no joint enlargement and no pedal edema Neuro: COMMON NORMALS: moves all extremities Data 09/02/23 02:57 09/02/23 11:15 A&P Assessment and plan (1) Acute hyponatremia: (2) Dehydration: (3) Alcoholic gastritis: (4) Acute alcohol intoxication: (5) Thrombocytopenia: (6) Metabolic acidosis: (7) Acute on chronic pancreatitis: (8) Alcoholic ketoacidosis: (9) Generalized anxiety disorder with panic attacks: Plan Alcoholic ketoacidosis reviewed vitals, CBC, chemistry, UA, EKG. Noted sinus tachycardia, no sign of ischemia, arrhythmia on my interpretation. Repeat chemistry requested, reviewed, noted improving acidosis, bicarb reviewed up to 18, anion gap reviewed with improvement down to 25.8. Severe dehydration Continue rehydration. On phenobarbital for alcohol withdrawal. Monitor vitals, monitor in ICU with risk of respiratory depression. He can receive up to 800 mg of phenobarbital per day I will continue thiamine and folic acid Noted alcohol induced hepatitis. Check INR. trial of cardiac diet. Repeat lipase. Repeat CBC, CMP. Watch for any signs of necrotic pancreas lactic acidemia is most likely related to severe dehydration Severe hyponatremia: Showing gradual improvement, sodium up to 2127, then with some fluctuation. Latest 127. Held NS. Repeat additional sodium tonight and chemistry in the morning. We will give 1 bag of hypertonic saline and continue normal saline He will be n.p.o. He will need to stay fluid restricted Recheck sodium every 4 hours Sherrell-Elam tear? Hemoglobin stable Patient noticed blood in vomiting May need EGD outpatient Admit to ICU Full code N.p.o. At risk of DTs Attestations Medical Necessity Statement*: Continue admission for assessment management of hyponatremia, alcohol withdrawal, pancreatitis, alcohol induced hepatitis, alcohol induced ketoacidosis. Coding Level of Care Code 61304 High MDM includes number and complexity of problems actively addressed during encounter, amount and/or complexity of data reviewed/ordered [ resulted lab(s)/test(s), ordered lab(s)/test(s) and independent test interpretation] and described risk of complication, morbidity or mortality of management as document ed Diagnoses Acute hyponatremia E87.1 Dehydration E86.0 Alcoholic gastritis K29.20 Acute alcohol intoxication F10.929 Thrombocytopenia D69.6 Metabolic acidosis E87.20 Acute on chronic pancreatitis K85.90; K86.1 Alcoholic ketoacidosis E87.29 Generalized anxiety disorder with panic attacks F41.1; F41.0
[2023-09-03] VITALS (26 sets, daily range): BP systolic 114–141; BP diastolic 75–101; PULSE 72–112; RESP 9–19; TEMP 34.7–36.6; O2SAT 96–100
[2023-09-03 00:01] LABS: Sodium 129 mmol/L (136-145)
[2023-09-03] MEDS: morphine 4 mg/mL SDV 1 mL 2 MG IVP ×4 (00:02→21:22)
[2023-09-03] MEDS: ondansetron 2 mg/ML SDV 2 mL 4 MG IVP ×3 (00:02→16:53)
[2023-09-03] MEDS: PHENobarbital 130 mg/mL SDV 1 mL 120 MG IV ×3 (00:03→07:33)
[2023-09-03] MEDS: LORazepam 0.5 mg Tablet PO ×2 (02:54→22:07)
[2023-09-03 04:22] LABS: Basophils % 0.7 %; Eosinophils % 0.3 %; Hematocrit 43.6 % (37-53); Lymphocytes # 1.4 10^3/uL (0.8-4.8); Lymphocytes % 23.2 %; Mean Corpuscular HGB Conc 33.9 g/dL (30-55); Mean Corpuscular Hemoglobin 32.9 pg (27-33); Mean Corpuscular Volume 96.9 fl (82-101); Mean Platelet Volume 11.8 fL (7.4-10.4); Monocytes # 0.6 10^3/uL (0.2-0.9); Monocytes % 9.9 %; Neutrophils # 3.83 10^3/uL (1.8-7.7); Neutrophils % 65.6 %; Nucleated Red Blood Cells % 0 %; Platelet Count 93 10^3/cmm (157-399); Red Cell Distribution Width 11.8 % (12.1-15.1); White Blood Count 5.85 10^3/uL (3.29-11.43)
[2023-09-03 04:35] LABS: INR 1.03 (0.8-1.2)
[2023-09-03 04:44] LABS: Alanine Aminotransferase 48 U/L (0-41); Albumin Level 4.7 g/dL (3.5-5.2); Alkaline Phosphatase 141 U/L (40-130); Anion Gap 23.4 (5-19); Aspartate Amino Transferase 74 U/L (0-40); Blood Urea Nitrogen 15 mg/dL (6-20); Calcium 9.8 mg/dL (8.5-10.5); Carbon Dioxide 22 mmol/L (22-29); Chloride 87 mmol/L (98-107); Glomerular Filtration Rate 155.2 mL/min (90-130); Glucose 67 mg/dL (65-115); Osmolality Calculated 267 mOsm/kg (285-295); Potassium 3.4 mmol/L (3.5-5.1); Sodium 129 mmol/L (136-145); Total Bilirubin 1.3 mg/dL (0.15-1.2); Total Protein 7.7 g/dL (6.6-8.7)
[2023-09-03 05:08] LABS: Lipase 413 U/L (13-60)
[2023-09-03] MEDS: metoprolol tartrate 25 mg Tablet PO ×2 (08:11→20:35)
[2023-09-03] MEDS: folic acid 1 mg Tablet PO (08:11)
[2023-09-03] MEDS: lisinopril 10 mg Tablet PO (08:11)
[2023-09-03] MEDS: pantoprazole DR 40 mg Tablet PO (08:11)
[2023-09-03] MEDS: thiamine 100 mg Tablet PO (08:11)
--- NOTE | 2023-09-03 13:12 | USR_ITS ---
PROCEDURE INFORMATION: Exam: US Abdomen, Limited; Right Upper Quadrant Exam date and time: 09/03/2023 3:45 PM Age: 33 years old Clinical indication: Tbili elevation, hepatobiliary struct TECHNIQUE: Imaging protocol: Real time ultrasound of the abdomen with image documentation. Limited exam focused on the right upper quadrant. COMPARISON: CT abdomen pelvis w con* [id number] 08/06/2023 8:01 AM FINDINGS: Liver: The liver is enlarged measuring 17.4 cm.The liver is diffusely increased in echogenicity consistent with fatty infiltration. Well-circumscribed isoechoic to hypoechoic lesion in the right hepatic lobe measures 2.5 x 1.5 x 2.8 cm. Given the differences in technique between today's ultrasound in the prior CT scan, this lesion has a relatively stable appearance. Gallbladder: Gallbladder wall is normal in thickness measuring 2.2 mm. Biliary ducts: Common bile duct measures 5 mm. Pancreas: Pancreas is obscured by overlying bowel gas. Right kidney: Normal. No mass. No hydronephrosis. Inferior vena cava: Aorta and IVC are unremarkable. US/US abdomen limited [id number] IMPRESSION: 1. Hepatomegaly with fatty infiltration of the liver. 2. Well-circumscribed lesion in the right hepatic lobe was seen on the prior CT scan as well. Further evaluation with non-emergent liver MRI is recommended. (Reference: Nathan) REFERENCES: Nathan CODY, et al. Management of Incidental Liver Lesions on CT: A White Paper of the ACR Incidental Findings Committee. J Am Daysi Radiol. 2017;14(11):0258-3030.
[2023-09-03 14:36] LABS: Sodium 126 mmol/L (136-145)
--- NOTE | 2023-09-03 17:57 | PC.NURSE ---
REport given to Jeanine on [facility]. Belongings sent with patient included a computer bag, computer, headwaitress, and slippers.
--- NOTE | 2023-09-03 22:50 | P.PN_ITS ---
Subjective Subjective: He did not feel the best after trying some bites of food, like to downgrade diet back to clear liquid. Still with upper abdominal pain. Vitals/I&O/Wt Last Vital Signs Temp 98 F 09/03/23 20:00 Pulse 83 09/03/23 20:00 Resp 16 09/03/23 21:22 BP 122/75 09/03/23 20:00 Pulse Ox 99 09/03/23 20:00 O2 Del Method Room Air 09/03/23 18:00 09/03/23 09/03/23 09/03/23 06:59 14:59 22:59 Intake Total 480 / 960 1000 / 1000 Output Total 1000 / 1000 1150 / 1150 Balance -520 / -40 -1150 / -1150 1000 / -150 Weight last 48 hrs Weight 91.172 kg Weight 86.183 kg Weight 85.865 kg Weight 86.591 kg Physical Exam Const: GENERAL APPEARANCE: cooperative and disheveled ORIENTATION/CONSCIOUSNESS: Yes awake HENMT: COMMON NORMALS: oropharynx normal Neck/C-Spine: COMMON NORMALS: no JVD Resp: COMMON NORMALS: normal respiratory effort and clear to auscultation bilaterally AUSCULTATION: clear to auscultation bilaterally Cardio: COMMON NORMALS: no JVD, regular rhythm, S1 normal heart sound present, S2 normal heart sound present and No murmurs present (Cardio) RHYTHM: regular rhythm HEART SOUNDS: S1 normal heart sound present and S2 normal heart sound present GI: COMMON NORMALS: Normal to inspection, nondistended, normoactive bowel sounds present and Soft to palpation PALPATION: Yes Soft to palpation and Yes Tenderness to palpation present (GI) Extremity: COMMON NORMALS: no joint enlargement and no pedal edema Neuro: COMMON NORMALS: moves all extremities Data 09/03/23 03:10 09/03/23 13:56 A&P Assessment and plan (1) Acute hyponatremia: (2) Dehydration: (3) Alcoholic gastritis: (4) Acute alcohol intoxication: (5) Thrombocytopenia: (6) Metabolic acidosis: (7) Acute on chronic pancreatitis: (8) Alcoholic ketoacidosis: (9) Generalized anxiety disorder with panic attacks: Plan Alcoholic ketoacidosis reviewed vitals, CBC, CMP, improving metabolic acidosis. Bicarb is improving. Follow-up chemistry requested. Severe dehydration Continue rehydration. He prefers to downgrade diet back to liquids. On phenobarbital for alcohol withdrawal. Monitor vitals, monitor in ICU with risk of respiratory depression. He can receive up to 800 mg of phenobarbital per day I will continue thiamine and folic acid Noted alcohol induced hepatitis. INR obtained, Reviewed,low Madrey dis criminant, transaminitis improving. Reassess chemistry. Pancreatitis: Noted worsening lipase up to 413. chip applying machine tender especially upper abdomen. Discussed with him we will obtain right upper quadrant ultrasound. Follow-up lipase. He prefers to downgrade diet to clear liquids. Continue some IV fluid. Lactic acidemia is most likely related to severe dehydration: Metabolic acidosis improving. Severe hyponatremia: Sodium with improvement up to 129, but has been fluctuating With some decreased this afternoon to 126. Started on clear liquids. Will resume some IV hydration. Recheck sodium level. Sherrell-Elam tear? Hemoglobin stable Patient noticed blood in vomiting May need EGD outpatient. EtOH use disorder: Encourage abstinence. Was assessed at risk of withdrawal, was started on phenobarbital, so far has done well, stop phenobarbital. Monitor for any signs of withdrawal. Continue vitamin supplementation. Attestations Medical Necessity Statement*: Continue admission for assessment management of hyponatremia, metabolic acidosis, pancreatitis, alcohol induced hepatitis. Diagnoses Acute hyponatremia E87.1 Dehydration E86.0 Alcoholic gastritis K29.20 Acute alcohol intoxication F10.929 Thrombocytopenia D69.6 Metabolic acidosis E87.20 Acute on chronic pancreatitis K85.90; K86.1 Alcoholic ketoacidosis E87.29 Generalized anxiety disorder with panic attacks F41.1; F41.0
[2023-09-03] MEDS: sodium chloride 0.9% 1,000 ML 30 ML IV (23:25)
[2023-09-04] VITALS (8 sets, daily range): BP systolic 120–148; BP diastolic 77–99; PULSE 78–123; RESP 16–18; TEMP 36.7–36.8; O2SAT 97–99
[2023-09-04] MEDS: morphine 4 mg/mL SDV 1 mL 2 MG IVP (03:07)
[2023-09-04] MEDS: ondansetron 2 mg/ML SDV 2 mL 4 MG IVP (03:15)
[2023-09-04 05:40] LABS: Basophils % 0.8 %; Eosinophils # 0.1 10^3/uL (0.0-0.8); Eosinophils % 1.1 %; Hematocrit 40.4 % (37-53); Lymphocytes # 1.5 10^3/uL (0.8-4.8); Lymphocytes % 30.7 %; Mean Corpuscular HGB Conc 34.4 g/dL (30-55); Mean Corpuscular Hemoglobin 33.6 pg (27-33); Mean Corpuscular Volume 97.6 fl (82-101); Mean Platelet Volume 11.8 fL (7.4-10.4); Monocytes # 0.4 10^3/uL (0.2-0.9); Monocytes % 9.3 %; Neutrophils # 2.73 10^3/uL (1.8-7.7); Neutrophils % 57.9 %; Nucleated Red Blood Cells % 0 %; Platelet Count 55 10^3/cmm (157-399); Red Blood Count 4.14 10^6/uL (3.85-5.65); Red Cell Distribution Width 11.6 % (12.1-15.1); White Blood Count 4.72 10^3/uL (3.29-11.43)
[2023-09-04 06:21] LABS: Alanine Aminotransferase 49 U/L (0-41); Albumin Level 4.1 g/dL (3.5-5.2); Alkaline Phosphatase 140 U/L (40-130); Blood Urea Nitrogen 9 mg/dL (6-20); Calcium 9.3 mg/dL (8.5-10.5); Carbon Dioxide 22 mmol/L (22-29); Chloride 91 mmol/L (98-107); Globulin 2.9 g/dL (1.3-4.6); Glomerular Filtration Rate 191.5 mL/min (90-130); Glucose 79 mg/dL (65-115); Osmolality Calculated 268 mOsm/kg (285-295); Sodium 130 mmol/L (136-145); Total Bilirubin 1.1 mg/dL (0.15-1.2)
[2023-09-04 06:22] LABS: Anion Gap 21.2 (5-19); Aspartate Amino Transferase 71 U/L (0-40); Potassium 4.2 mmol/L (3.5-5.1)
[2023-09-04 06:26] LABS: Lipase 119 U/L (13-60)
[2023-09-04] MEDS: lisinopril 10 mg Tablet PO (08:32)
[2023-09-04] MEDS: pantoprazole DR 40 mg Tablet PO (08:32)
[2023-09-04] MEDS: thiamine 100 mg Tablet PO (08:32)
[2023-09-04] MEDS: acetaminophen 500 mg Tablet PO (08:32)
[2023-09-04] MEDS: folic acid 1 mg Tablet PO (08:32)
[2023-09-04] MEDS: metoprolol tartrate 25 mg Tablet PO (09:41)
--- NOTE | 2023-09-04 13:24 | PM.DCS ---
Discharge Providers Date of Admission: 09/02/23 00:13 Date of Discharge: September 04, 2023 Attending Provider at Admission: Nicole Flowers MD Attending Provider at Discharge: Tony Reagan MD Primary Care Provider: Antonio Alvarado MD Diagnoses at Discharge Discharge Diagnosis (1) Acute hyponatremia: Status: Acute (2) Dehydration: Status: Acute (3) Alcoholic gastritis: Status: Acute (4) Acute alcohol intoxication: Status: Acute (5) Thrombocytopenia: Status: Acute (6) Metabolic acidosis: Status: Acute (7) Acute on chronic pancreatitis: Status: Resolved (8) Alcoholic ketoacidosis: Status: Inactive (9) Generalized anxiety disorder with panic attacks: Status: Inactive Reason for Visit Reason for Visit: ABD PAIN Brief History: History as per HPI: Buddy Cowan is a 33 year old male with history of albuterol, alcohol-related hepatitis, withdrawal seizures in the past, recurrent admissions, recurrent pancreatitis presented with chief complaint of nausea vomiting, secondary to alcohol use around Thanksgiving.? In the ER he was diagnosed with severe hyponatremia, dehydration lactic acidemia with hypotension and required 2 L IV fluids, he is not showing any signs of sepsis, abnormal transaminases, lipase 106, serum ketones positive Patient is stating that he could not maintain his sobriety around Thanksgiving blaming that he should not be around alcohol at all.? He has been vomiting for last 24 to 30 hours, recurrent nausea vomiting he has also noticed blood in his vomitus, patient is stating that he was having pancreatitis issues even before Thanksgiving where he got worse after drinking alcohol.? Patient is not diabetic, stating that he has not been able to keep anything down. Hospital Course Hospital Course Patient was admitted to the hospital for further evaluation and management of recurrent alcohol induced pancreatitis. On admission he was found to have an alcohol level of 12. He was started on conservative treatment with IV for resuscitation, n.p.o. status and pain medications. On admission he was also found to have acute hyponatremia, alcoholic ketosis in setting of dehydration which was treated with IV hydration. Gradually patient improved and he is able to tolerate clear liquid diet for the last 24 to 36 hours. He is being discharged in medically stable condition with counseling of cessation of alcohol consumption, multiple small meals going forward, gradual upward rotation of diet from full liquid diet to regular within the next 1 to 2 weeks, counseled about keeping a check on his eating with multiple small meals during the day especially during the season Physical Exam Narrative: Wakes up to voice. Const: GENERAL APPEARANCE: cooperative and disheveled ORIENTATION/CONSCIOUSNESS: Yes awake HENMT: COMMON NORMALS: oropharynx normal Neck/C-Spine: COMMON NORMALS: no JVD Resp: COMMON NORMALS: normal respiratory effort and clear to auscultation bilaterally AUSCULTATION: clear to auscultation bilaterally Cardio: COMMON NORMALS: no JVD, regular rhythm, S1 normal heart sound present, S2 normal heart sound present and No murmurs present (Cardio) RHYTHM: regular rhythm HEART SOUNDS: S1 normal heart sound present and S2 normal heart sound present GI: COMMON NORMALS: Normal to inspection, nondistended, normoactive bowel sounds present, Soft to palpation and non-tender PALPATION: Yes Soft to palpation and Yes Tenderness to palpation present (GI) Extremity: COMMON NORMALS: no joint enlargement and no pedal edema Neuro: COMMON NORMALS: moves all extremities Discharge Data Studies Completed and Pending Completed Studies During Hospitalization Category Date Time Status US abdomen limited [id number] Routine Ultrasound 09/03/23 13:12 Completed Pending at discharge Category Date Time Status Complete Blood Count w/Auto AM LABS Lab 09/05/23 04:00 Ordered Comprehensive Metabolic Panel AM LABS Lab 09/05/23 04:00 Ordered Lipase AM LABS Lab 09/05/23 04:00 Ordered Lipase AM LABS Lab 09/06/23 04:00 Ordered Radiology Impressions Abdomen Ultrasound 09/03/23 13:12 IMPRESSION: 1. Hepatomegaly with fatty infiltration of the liver. 2. Well-circumscribed lesion in the right hepatic lobe was seen on the prior CT scan as well. Further evaluation with non-emergent liver MRI is recommended. (Reference: Nathan) REFERENCES: Nathan RM, et al. Management of Incidental Liver Lesions on CT: A White Paper of the ACR Incidental Findings Committee. J Am Daysi Radiol. 2017;14(11):0951-7394. Laboratory Results WBC 4.72 10^3/uL (3.29-11.43) 09/04/23 05:10 RBC 4.14 10^6/uL (3.85-5.65) 09/04/23 05:10 Hgb 13.90 g/dL (11.27-16.99) 09/04/23 05:10 Hct 40.4 % (37-53) 09/04/23 05:10 MCV 97.6 fl (82-101) 09/04/23 05:10 MCH 33.6 pg (27-33) H 09/04/23 05:10 MCHC 34.4 g/dL (30-55) 09/04/23 05:10 RDW 11.6 % (12.1-15.1) L 09/04/23 05:10 Plt Count 55 10^3/cmm (157-399) L D 09/04/23 05:10 MPV 11.8 fL (7.4-10.4) H 09/04/23 05:10 Neut % (Auto) 57.9 % 09/04/23 05:10 Lymph % (Auto) 30.7 % 09/04/23 05:10 Wirt % (Auto) 9.3 % 09/04/23 05:10 Eos % (Auto) 1.1 % 09/04/23 05:10 Baso % (Auto) 0.8 % 09/04/23 05:10 Neut # (Auto) 2.73 10^3/uL (1.8-7.7) 09/04/23 05:10 Lymph # (Auto) 1.5 10^3/uL (0.8-4.8) 09/04/23 05:10 Wirt # (Auto) 0.4 10^3/uL (0.2-0.9) 09/04/23 05:10 Eos # (Auto) 0.1 10^3/uL (0.0-0.8) 09/04/23 05:10 Baso # (Auto) 0.0 10^3/uL (0.0-0.1) 09/04/23 05:10 Nucleated RBC % (auto) 0 % 09/04/23 05:10 Nucleated RBCs # 0.0 /100WBC 09/04/23 05:10 PT 13.80 SECONDS (12.1-14.9) 09/03/23 03:10 INR 1.03 (0.8-1.2) 09/03/23 03:10 Specimen Type Arterial 09/01/23 18:58 Sample Site Radial, right 09/01/23 18:58 ABG pH 7.48 (7.35-7.45) H 09/01/23 18:58 ABG pCO2 21.2 mmHg (35-45) L 09/01/23 18:58 ABG pO2 115.0 mmHg (80.0-100.0) H 09/01/23 18:58 ABG HCO3 15.8 mmol/L (22-26) L 09/01/23 18:58 ABG Base Excess -5.2 mmol/L (-2.0-2.0) L 09/01/23 18:58 Ricardo Test Pos 09/01/23 18:58 Hematocrit 46.8 % (42-52) 09/01/23 18:58 O2 Delivery Device Room air 09/01/23 18:58 [employer] [id number] 09/01/23 18:58 Sodium 130 mmol/L (136-145) L 09/04/23 05:10 Potassium 4.2 mmol/L (3.5-5.1) 09/04/23 05:10 Chloride 91 mmol/L (98-107) L 09/04/23 05:10 Carbon Dioxide 22 mmol/L (22-29) 09/04/23 05:10 Anion Gap 21.2 (5-19) H 09/04/23 05:10 BUN 9 mg/dL (6-20) 09/04/23 05:10 Creatinine 0.5 mg/dL (0.7-1.2) L 09/04/23 05:10 GFR Calculation 191.5 mL/min (90-130) H 09/04/23 05:10 Glucose 79 mg/dL (65-115) 09/04/23 05:10 Estimat Average Glucose 68 09/01/23 20:10 Hemoglobin A1c 4.0 % (4.0-6.0) 09/01/23 20:10 Calculated Osmolality 268 mOsm/kg (285-295) L 09/04/23 05:10 Lactic Acid 4.1 mmol/L (0.5-2.2) H* 09/01/23 17:55 Lactic Acid (Sepsis) 1.1 mmol/L (0.5-2.2) 09/02/23 01:20 Calcium 9.3 mg/dL (8.5-10.5) 09/04/23 05:10 Phosphorus 3.9 mg/dL (2.5-4.5) 09/02/23 02:57 Magnesium 2.1 mg/dL (1.7-2.3) 09/02/23 02:57 Total Bilirubin 1.1 mg/dL (0.15-1.2) 09/04/23 05:10 AST 71 U/L (0-40) H 09/04/23 05:10 ALT 49 U/L (0-41) H 09/04/23 05:10 Alkaline Phosphatase 140 U/L (40-130) H 09/04/23 05:10 Total Protein 7.0 g/dL (6.6-8.7) 09/04/23 05:10 Albumin 4.1 g/dL (3.5-5.2) 09/04/23 05:10 Globulin 2.9 g/dL (1.3-4.6) 09/04/23 05:10 Lipase 119 U/L (13-60) H 09/04/23 05:10 Vitamin B12 1460 pg/mL (232-1245) H 09/02/23 02:57 Urine Color Marium (Yellow) 09/01/23 23:25 Urine Appearance Clear (CLEAR) 09/01/23 23:25 Urine pH 5 (5-7) 09/01/23 23:25 Ur Specific [place] 1.030 (1.005-1.030) 09/01/23 23:25 Urine Protein 1+ (Negative) H 09/01/23 23:25 Urine Glucose (UA) Norm (Normal) 09/01/23 23:25 Urine Ketones 3+ (Negative) H 09/01/23 23:25 Urine Blood Neg (Negative) 09/01/23 23: Urine Nitrate Negative (Negative) 09/01/23 23:25 Urine Bilirubin 1+ (Negative) H 09/01/23 23:25 Urine Urobilinogen Neg mg/dL (Negative) 09/01/23 23:25 Ur Leukocyte Esterase Negative (Negative) 09/01/23 23:25 Urine RBC Rare /hpf (0-2) 09/01/23 23:25 Urine WBC Rare /hpf (0-5) 09/01/23 23:25 Ur Squamous Epith Cells 0-4 /hpf (0-5) H 09/01/23 23:25 Amorphous Sediment 2+ /hpf 09/01/23 23:25 Urine Bacteria None /hpf (NONE) 09/01/23 23:25 Urine Mucus 3+ /hpf 09/01/23 23:25 Ethyl Alcohol 12 mg/dL (0-10) H 09/01/23 17:55 Serum Ketones Positive (Negative) H 09/01/23 17:55 Vitals Last Vital Signs Temp 98.1 F 09/04/23 11:32 Pulse 79 09/04/23 11:32 Resp 16 09/04/23 11:32 BP 136/91 09/04/23 11:32 Pulse Ox 97 09/04/23 11:32 O2 Del Method Room Air 09/04/23 11:32 Discharge Plan Discharge Patient Disposition: Home Condition: Stable Prescriptions: New lisinopril 10 mg Tablet 10 mg PO DAILY Qty: 30 0RF metoprolol tartrate 25 mg Tablet 25 mg PO BID@0900,2100 Qty: 60 0RF Dilaudid 2 mg tablet 2 mg PO Q6H PRN (Reason: pain) Qty: 14 0RF Continued clonidine HCl 0.1 mg tablet 0.1 mg PO BID PRN (Reason: Blood Pressure) Qty: 60 0RF omeprazole 40 mg capsule,delayed release(DR/EC) 40 mg PO DAILY folic acid 1 mg Tablet 1 mg PO DAILY 30 Days Qty: 30 0RF Discontinued lisinopril 40 mg Tablet 40 mg PO DAILY Hold Instructions: Resume on 06/28/23. Discharge Orders: Discharge Order (Routine); Ordered 09/04/23 Ordered By: Tony Reagan Referrals: Antonio Alvarado MD [Primary Care Provider] - 4-7 days (We have notified your physician's clinic of the need for a follow-up appointment to be scheduled. If you have not heard from them within the next 2 business days, please call them directly. ) Discharge Diet: Advance as tolerated and Clear Liquid Discharge Activity: Resume usual activity and Increase activity as tolerated Patient Instructions: Metoprolol (By mouth), Lisinopril (By mouth), Hydromorphone (By mouth), Pancreatitis (DC), Opioid Safety Activity Restrictions/Additional Instructions: Please cessation of alcohol consumption, Please take multiple small meals going forward, gradual upward rotation of diet from full liquid diet to regular within the next 1 to 2 weeks, counseled about keeping a check on his eating with multiple small meals during the day especially during the season. Please follow the primary care provider within next 1 week. Discharge Attestations Time Spent in Discharge Care*: greater than 30 min Specific Discharge Activities: educating patient, discussing with pcp/other providers, discussing with case management manager/social workers/dc planners, documenting/other paperwork and evaluating patient/reviewing data Status at Discharge: Cognitive status at discharge: cognitively intact, Behavioral status at discharge: cooperative, Quality Metrics Clinical Quality Measures [ No reported AMI, CVA or VTE this stay] Coding Level of Care Code 72625 Total time (in minutes) for Discharge: 50 Diagnoses Acute hyponatremia E87.1 Dehydration E86.0 Alcoholic gastritis K29.20 Acute alcohol intoxication F10.929 Thrombocytopenia D69.6 Metabolic acidosis E87.20 Acute on chronic pancreatitis K85.90; K86.1 Alcoholic ketoacidosis E87.29 Generalized anxiety disorder with panic attacks F41.1; F41.0
== END 2023-09-04 14:25 | disposition home or self-care (01) | DRG 640 ==
LOC: ER 19:29 → ICU 09-02 00:13 → MEDSURG 09-03 16:38
PROVIDERS: Family Medicine; Internal Medicine; Admitting Provider Internal Medicine; Emergency Provider Emergency Medicine; PCP Family Medicine Adult Medicine; Visit Provider Student in an Organized Health Care Education/Training Program
DX: E87.1 Hypo-osmolality and hyponatremia (principal); K85.20 Alcohol induced acute pancreatitis without necrosis or infection; F10.239 Alcohol dependence with withdrawal, unspecified; K86.0 Alcohol-induced chronic pancreatitis; E87.29 Other acidosis; Y90.0 Blood alcohol level of less than 20 mg/100 ml; K29.20 Alcoholic gastritis without bleeding; K70.10 Alcoholic hepatitis without ascites; F10.229 Alcohol dependence with intoxication, unspecified; F43.10 Post-traumatic stress disorder, unspecified; F41.1 Generalized anxiety disorder; F32.A Depression, unspecified; K21.9 Gastro-esophageal reflux disease without esophagitis; E78.5 Hyperlipidemia, unspecified; I10 Essential (primary) hypertension; F41.0 Panic disorder [episodic paroxysmal anxiety]; D69.6 Thrombocytopenia, unspecified; E86.0 Dehydration; E88.89 Other specified metabolic disorders; I95.9 Hypotension, unspecified
CPT/HCPCS: 36415; 36600; 76705; 80053; 80307; 81001; 82009; 82607; 82803; 83036; 83605; 83690; 83735; 84100; 84295; 85025; 85610; 93005; 93010; 96361; 96374; 96375; 96376; 99285; J1170; J2060; J2270; J2405; J2560; J3411; J7030

== ENCOUNTER 2023-09-14 19:35 | Emergency (ER) | payer MEDICAID, SELFPAY ==
[2023-09-14 19:39] VITALS: BP 119/78; PULSE 132; RESP 22; TEMP 36.6; O2SAT 95; BMI 32.5
--- NOTE | 2023-09-14 19:43 | XRR_ITS ---
PROCEDURE INFORMATION: Exam: XR Chest Exam date and time: 09/14/2023 8:20 PM Age: 33 years old Clinical indication: Other: Weakness TECHNIQUE: Imaging protocol: Radiologic exam of the chest. Views: 1 view. COMPARISON: CR (CHEST, ) 08/06/2023 3:18 PM FINDINGS: Lungs: Clear, symmetrically inflated lungs. Pleural spaces: No pleural effusion. No pneumothorax. Heart/Mediastinum: Cardiac silhouette is normal in size for technique. Bones/joints: Age appropriate. XR/XR chest 1V portable [id number] IMPRESSION: No acute cardiopulmonary abnormality.
--- NOTE | 2023-09-14 19:49 | ED_ITS ---
HPI - GI Bleed 2 General: Chief complaint: GI Bleed Stated complaint: Weakness Time Seen by Provider: 09/14/23 19:43 History of Present Illness: Patient presents to the ER by EMS with complaints of black tarry stools since around 3 PM today. Patient is a known chronic alcoholic and has chronic pancreatitis. Patient's stated his last drink was early this morning. Patient is confused does not follow directions well and does still appear to be intoxicated. His heart rate upon arrival was approximately 130. Blood pressure stable at 119/78. Patient denies any complaints at this time. Patient does not appear to be on any type of anti-inflammatories or anticoagulants. Patient has had a history of GI bleed recently. Review of Systems 2 General: Reports: 10 or more systems reviewed and unremarkable except in HPI and below PFSH ED 2 PFSH: Medical History Chronic nasal congestion Chronic nausea Gynecomastia, male Panic attack Alcohol abuse Acute on chronic pancreatitis Transaminitis Hyperlipidemia Anxiety and depression GERD (gastroesophageal reflux disease) Hypertension Acute posttraumatic stress disorder Surgical History No pertinent past surgical history Family History Father Hypertension Social History Smoking and tobacco/nicotine status: never used tobacco/nicotine Alcohol intake: current Alcohol intake frequency: 0-2 Drinks per Day Substance/Drug Use: never Marital status: Number of children: 5 Current occupational status: employed Current gender identity: Male Physical Exam 2 Const: COMMON NORMALS: no acute distress, average body habitus, healthy appearing, alert and well nourished HENMT: COMMON NORMALS: normocephalic, atraumatic, hearing grossly normal bilaterally, external ears normal, Normal external nose present, moist oral mucous membranes and oropharynx normal HEAD & SCALP: normocephalic and atraumatic NOSE: Normal external nose present EXTERNAL EAR: Yes external ears normal Eye: COMMON NORMALS: Equal, round and reactive pupils present, EOMs intact bilaterally, conjunctivae normal and no scleral icterus CONJUNCTIVA: Yes conjunctivae normal PUPIL: Yes Equal, round and reactive pupils present Neck/C-Spine: COMMON NORMALS: no JVD Resp: COMMON NORMALS: normal respiratory effort, No retractions, No use of accessory muscles and clear to auscultation bilaterally AUSCULTATION: clear to auscultation bilaterally Cardio: COMMON NORMALS: no JVD, regular rate, regular rhythm, S1 normal heart sound present, S2 normal heart sound present, No gallops present (Cardio), No clicks present (Cardio), No murmurs present (Cardio) and No rub (Cardio) R ATE: regular rate RHYTHM: regular rhythm HEART SOUNDS: S1 normal heart sound present and S2 normal heart sound present GI: COMMON NORMALS: Normal to inspection, nondistended, normoactive bowel sounds present, Soft to palpation, No hepatosplenomegaly present and no masses; negative for non-tender (Mildly tender throughout) PALPATION: Yes Soft to palpation and Yes No hepatosplenomegaly present : COMMON NORMALS: Yes no CVA tenderness BLADDER/KIDNEY EXAM: Yes no CVA tenderness Back/Pelvis: COMMON NORMALS: no CVA tenderness Neuro: SENSORIUM/ORIENTATION: Yes alert Course 2 Vital Signs: Vital signs: Vital Signs Temperature 98 F 09/14/23 19:39 Pulse Rate 133 H 09/14/23 21:31 Respiratory Rate 18 09/14/23 21:31 Blood Pressure 132/82 09/14/23 21:31 Pulse Oximetry 94 09/14/23 21:31 Oxygen Delivery Me thod Room Air 09/14/23 21:31 MDM - GI Bleed Medical Decision Making Patient presents to the ER with complaints of black tarry stools and confusion. Patient had lab work as well as chest x-ray. Patient's chronically hyponatremic and a sodium today was 127, call patient had elevated liver enzymes of AST 113 ALT 88 and alkaline phosphatase 138, urinalysis showed positive for 1+ ketones positive for barbiturates in his urine drug screen his ethyl alcohol was around 437. Patient was given 2 L normal saline as well as 20 mg Pepcid, 40 mg Protonix, 1 g of Carafate and 4 mg of Zofran. Patient will be discharged home to follow-up with his PCP within the next 7 days.. Differential Diagnosis Likely esophageal varices, gastritis, Upper gastrointestinal hemorrhage and melena; Unlikely hemorrhoids, infectious diarrhea, Sherrell-Elam syndrome, Lower gastrointestinal hemorrhage, hematochezia or anal fissure Medical Records I reviewed the patient's medical records. Lab Data I reviewed the patient's lab results. 09/14/23 19:42 09/14/23 20:40 Radiology Impressions Chest X-Ray 09/14/23 19:43 IMPRESSION: No acute cardiopulmonary abnormality. Laboratory Results WBC 4.19 10^3/uL (3.29-11.43) 09/14/23 19:42 RBC 4.78 10^6/uL (3.85-5.65) 09/14/23 19:42 Hgb 15.60 g/dL (11.27-16.99) 09/14/23 19:42 Hct 43.8 % (37-53) 09/14/23 19:42 MCV 91.6 fl (82-101) 09/14/23 19:42 MCH 32.6 pg (27-33) 09/14/23 19:42 MCHC 35.6 g/dL (30-55) 09/14/23 19:42 RDW 11.9 % (12.1-15.1) L 09/14/23 19:42 Plt Count 273 10^3/cmm (157-399) 09/14/23 19:42 MPV 9.8 fL (7.4-10.4) 09/14/23 19:42 Neut % (Auto) 45.2 % 09/14/23 19:42 Lymph % (Auto) 43.9 % 09/14/23 19:42 [place] % (Auto) 9.5 % 09/14/23 19:42 Eos % (Auto) 0.0 % 09/14/23 19:42 Baso % (Auto) 1.4 % 09/14/23 19:42 Neut # (Auto) 1.89 10^3/uL (1.8-7.7) 09/14/23 19:42 Lymph # (Auto) 1.8 10^3/uL (0.8-4.8) 09/14/23 19:42 [place] # (Auto) 0.4 10^3/uL (0.2-0.9) 09/14/23 19:42 Eos # (Auto) 0.0 10^3/uL (0.0-0.8) 09/14/23 19:42 Baso # (Auto) 0.1 10^3/uL (0.0-0.1) 09/14/23 19:42 Nucleated RBC % (auto) 0 % 09/14/23 19:42 Nucleated RBCs # 0.0 /100WBC 09/14/23 19:42 PT 13.90 SECONDS (12.1-14.9) 09/14/23 20:40 INR 1.04 (0.8-1.2) 09/14/23 20:40 Sodium 127 mmol/L (136-145) L 09/14/23 20:40 Potassium 4.2 mmol/L (3.5-5.1) 09/14/23 20:40 Chloride 87 mmol/L (98-107) L 09/14/23 20:40 Carbon Dioxide 21 mmol/L (22-29) L 09/14/23 20:40 Anion Gap 23.2 (5-19) H 09/14/23 20:40 BUN 4 mg/dL (6-20) L 09/14/23 20:40 Creatinine 0.6 mg/dL (0.7-1.2) L 09/14/23 20:40 GFR Calculation 155.2 mL/min (90-130) H 09/14/23 20:40 Glucose 102 mg/dL (65-115) 09/14/23 20:40 Calculated Osmolality 261 mOsm/kg (285-295) L 09/14/23 20:40 Calcium 8.1 mg/dL (8.5-10.5) L 09/14/23 20:40 Magnesium 1.8 mg/dL (1.7-2.3) 09/14/23 20:40 Total Bilirubin 0.5 mg/dL (0.15-1.2) 09/14/23 20:40 AST 113 U/L (0-40) H 09/14/23 20:40 ALT 88 U/L (0-41) H 09/14/23 20:40 Alkaline Phosphatase 138 U/L (40-130) H 09/14/23 20:40 Total Protein 7.1 g/dL (6.6-8.7) 09/14/23 20:40 Albumin 4.4 g/dL (3.5-5.2) 09/14/23 20:40 Globulin 2.7 g/dL (1.3-4.6) 09/14/23 20:40 Lipase 12 U/L (13-60) L 09/14/23 20:40 Urine Color Yellow (Yellow) 09/14/23 22:05 Urine Appearance Clear (CLEAR) 09/14/23 22:05 Urine pH 7 (5-7) 09/14/23 22:05 Ur Specific [place] 1.010 (1.005-1.030) 09/14/23 22:05 Urine Protein Neg (Negative) 09/14/23 22:05 Urine Glucose (UA) Norm (Normal) 09/14/23 22:05 Urine Ketones 1+ (Negative) H 09/14/23 22:05 Urine Blood Neg (Negative) 09/14/23 22:05 Urine Nitrate Negative (Negative) 09/14/23 22:05 Urine Bilirubin Neg (Negative) 09/14/23 22:05 Urine Urobilinogen Neg mg/dL (Negative) 09/14/23 22:05 Ur Leukocyte Esterase Negative (Negative) 09/14/23 22:05 Urine Opiates Screen Negative ng/mL (Negative) 09/14/23 22:05 Ur Barbiturates Screen Positive ng/mL (Negative) H 09/14/23 22:05 Ur Phencyclidine Scrn Negative ng/mL (Negative) 09/14/23 22:05 Ur Amphetamines Screen Negative ng/mL (Negative) 09/14/23 22:05 U Benzodiazepines Scrn Negative ng/mL (Negative) 09/14/23 22:05 Urine Cocaine Screen Negative ng/mL (Negative) 09/14/23 22:05 U Marijuana (THC) Screen Negative ng/mL (Negative) 09/14/23 22:05 Ethyl Alcohol 437 mg/dL (0-10) H* 09/14/23 20:40 Blood Type O Positive 09/14/23 20:40 Rho(D) Type Rh positive 09/14/23 20:40 Antibody Screen Negative 09/14/23 20:40 All radiology interpretation(s) finalized by discharge EKG Data EKG 1: I personally reviewed and interpreted this EKG as follows: EKG interpretation date: 09/14/23 EKG interpretation time: 20:18 Prior EKG tracings: not available for review Interpretation: EKG showed ventricular rate 118 bpm, [place] interval 183, QRS duration 74, QTc of 349, sinus tachycardia Discharge Plan Discharge Patient Disposition: Home Clinical Impression: Acute GI bleeding, Chronic hyponatremia Alcohol intoxication Qualifiers: Complication of substance-induced condition: uncomplicated Qualified Code(s): F 10.920 - Alcohol use, unspecified with intoxication, uncomplicated Condition: Stable Prescriptions: New sucralfate [Carafate] 1 gram tablet 1 g PO Q6H Qty: 60 0RF famotidine [Pepcid] 20 mg tablet 20 mg PO BID Qty: 60 0RF No Action clonidine HCl 0.1 mg tablet 0.1 mg PO BID PRN (Reason: Blood Pressure) Qty: 60 0RF omeprazole 40 mg capsule,delayed release(DR/EC) 40 mg PO DAILY lisinopril 10 mg Tablet 10 mg PO DAILY Qty: 30 0RF metoprolol tartrate 25 mg Tablet 25 mg PO BID@0900,2100 Qty: 60 0RF Dilaudid 2 mg tablet 2 mg PO Q6H PRN (Reason: pain) Qty: 14 0RF Discharge Orders: Discharge ED (Routine); Ordered 09/14/23 Ordered By: Keo Pelaez Referrals: Antonio Alvarado MD [Primary Care Provider] - 1 week Patient Instructions: Gastrointestinal Bleeding (ED), Hyponatremia (ED), Abuse of Alcohol (DC) Activity Restrictions/Additional Instructions: Please limit use your alcohol. Please take your medicines as prescribed. Please follow-up with your family practice physician in the next 7 days for further evaluation and treatment. Coding Level of Care Code ED Network Services Project Manager for Al Duran
[2023-09-14 19:51] VITALS: BP 119/78; PULSE 143; RESP 18; O2SAT 96
[2023-09-14 20:01] LABS: Basophils # 0.1 10^3/uL (0.0-0.1); Basophils % 1.4 %; Hematocrit 43.8 % (37-53); Lymphocytes # 1.8 10^3/uL (0.8-4.8); Lymphocytes % 43.9 %; Mean Corpuscular HGB Conc 35.6 g/dL (30-55); Mean Corpuscular Hemoglobin 32.6 pg (27-33); Mean Corpuscular Volume 91.6 fl (82-101); Mean Platelet Volume 9.8 fL (7.4-10.4); Monocytes # 0.4 10^3/uL (0.2-0.9); Monocytes % 9.5 %; Neutrophils # 1.89 10^3/uL (1.8-7.7); Neutrophils % 45.2 %; Nucleated Red Blood Cells % 0 %; Platelet Count 273 10^3/cmm (157-399); Red Blood Count 4.78 10^6/uL (3.85-5.65); Red Cell Distribution Width 11.9 % (12.1-15.1); White Blood Count 4.19 10^3/uL (3.29-11.43)
[2023-09-14] MEDS: sodium chloride 0.9% 1,000 ML 999 ML IV ×2 (20:12→21:30)
[2023-09-14] MEDS: pantoprazole 40 mg SDV IVP (20:13)
[2023-09-14] MEDS: famotidine 20 mg/2 mL INJ IVP (20:15)
[2023-09-14 20:17] VITALS: BP 121/74; PULSE 120; RESP 18; O2SAT 96
--- NOTE | 2023-09-14 20:18 | ECG_ITS ---
[facility] Test Date: 2023-09-14 Pat Name: Buddy Cowan Department: Room: Gender: Male Developmental Psychologist: : 1990 Requested By: Keo Pelaez Order Number: [id number] Thomas MD: Saundra Martinez M.D. Measurements Intervals [place] Rate: 118 P: 69 WA: 183 QRS: 72 QRSD: 74 T: 54 QT: 279 QTc: 392 Interpretive Statements SINUS TACHYCARDIA ABNORMAL RHYTHM ECG Compared to ECG 09/01/2023 17:40:52 No significant changes Electronically Signed On 09-15-2023 16:00:23 POLICEWOMAN by Saundra Martinez M.D. [id number]
[2023-09-14 21:06] LABS: Alanine Aminotransferase 88 U/L (0-41); Albumin Level 4.4 g/dL (3.5-5.2); Alkaline Phosphatase 138 U/L (40-130); Anion Gap 23.2 (5-19); Aspartate Amino Transferase 113 U/L (0-40); Blood Urea Nitrogen 4 mg/dL (6-20); Calcium 8.1 mg/dL (8.5-10.5); Carbon Dioxide 21 mmol/L (22-29); Chloride 87 mmol/L (98-107); Globulin 2.7 g/dL (1.3-4.6); Glomerular Filtration Rate 155.2 mL/min (90-130); Glucose 102 mg/dL (65-115); INR 1.04 (0.8-1.2); Lipase 12 U/L (13-60); Magnesium 1.8 mg/dL (1.7-2.3); Osmolality Calculated 261 mOsm/kg (285-295); Potassium 4.2 mmol/L (3.5-5.1); Sodium 127 mmol/L (136-145); Total Bilirubin 0.5 mg/dL (0.15-1.2); Total Protein 7.1 g/dL (6.6-8.7)
[2023-09-14] MEDS: sucralfate 1 gm Tablet PO (21:25)
[2023-09-14] MEDS: ondansetron 2 mg/ML SDV 2 mL 4 MG IVP (21:26)
[2023-09-14 21:31] VITALS: BP 132/82; PULSE 133; RESP 18; O2SAT 94
[2023-09-14 21:37] LABS: Alcohol Level 437 mg/dL (0-10)
[2023-09-14 22:11] LABS: Add Urine Microscopic? NO; Charge for UA Resulting for Rev
[2023-09-14 22:13] LABS: Bilirubin Urine Neg (Negative); Blood Urine Neg (Negative); Glucose Urine UA Norm (Normal); Ketones Urine 1+ (Negative); Leukocyte Esterase Urine Negative (Negative); Nitrate Urine Negative (Negative); Protein Urine Neg (Negative); Urine Appearance Clear (CLEAR); Urine Color Yellow (Yellow); Urobilinogen Urine Neg (Negative); pH Urine 7 (5-7)
[2023-09-14 22:22] LABS: Amphetamines Screen Urine Negative (Negative); Barbiturates Screen Urine Positive (Negative); Benzodiazepines Screen Urine Negative (Negative); Cocaine Screen Urine Negative (Negative); Opiate Screen Urine Negative (Negative); PCP Screen Urine Negative (Negative); THC Screen Urine Negative (Negative)
[2023-09-14 23:50] VITALS: BP 119/77; PULSE 130; O2SAT 96
== END 2023-09-14 23:56 | disposition home or self-care (01) ==
PROVIDERS: Emergency Provider Emergency Medicine; PCP Family Medicine Adult Medicine
DX: K92.2 Gastrointestinal hemorrhage, unspecified (principal); F10.920 Alcohol use, unspecified with intoxication, uncomplicated; E87.1 Hypo-osmolality and hyponatremia; E78.5 Hyperlipidemia, unspecified; I10 Essential (primary) hypertension
CPT/HCPCS: 36415; 71045; 80053; 80306; 80307; 81003; 83690; 83735; 85025; 85610; 86850; 86900; 93005; 96361; 96374; 96375; 99285; C9113; J2405; J3490; J7030

== ENCOUNTER 2023-09-19 07:18 | Emergency (ER) | payer MEDICAID, SELFPAY ==
[2023-09-19 07:24] VITALS: BP 144/103; PULSE 112; RESP 18; TEMP 36.7; O2SAT 100; BMI 24.4
--- NOTE | 2023-09-19 07:30 | XR_ITS ---
WS: [id number] Exam: XR chest 1V portable [id number] Date/Time of Exam: 09/19/2023 7:36 AM Reason For Exam: dyspnea/cough Comparison 09/14/2023. Findings: The lungs are clear and fully expanded. Costophrenic angles are sharp. No infiltrates. Bronchovascula r relief appears normal. Cardiac silhouette is unremarkable. Bony elements are intact. IMPRESSION: Unremarkable chest radiograph.
--- NOTE | 2023-09-19 07:31 | ED_ITS ---
HPI - Alcohol 2 General: Chief Complaint: Alcohol Stated Complaint: ETOH Time Seen by Provider: 09/19/23 07:25 Source: patient Mode of arrival: EMS History of Present Illness: 33-year-old male presents to the emergen cy room with complaints of abdominal pain patient is a chronic alcoholic has had multiple visits for pancreatitis. He admits to drinking again last night. He said he has had a few episodes of hematemesis as well. He appears mildly intoxicated this morning. His only complaint is the epigastric upper abdominal pain. He denies any diarrhea denies any chest pain or shortness of breath. MD complaint: alcohol intoxication Chronic alcohol use: Yes Previous visits for alcohol intoxication: Yes Associated symptoms: Reports abdominal pain, nausea and vomiting; Deny no associated symptoms, depression, diaphoresis, hematemesis, involuntary movements, melena, seizure-like activity, suicidal ideation, syncope or other Review of Systems 2 Const: Denies: diaphoresis Card: Denies: syncope Resp: Denies: dyspnea GI: Reports: abdominal pain, nausea and vomiting; Denies: hematemesis or melena : Denies: dysuria, urinary frequency or urinary urgency Musc: Denies: neck pain or back pain Skin/Breast: Denies: rash Neuro: Denies: seizure-like activity or involuntary movements Psych: Denies: depression or suicidal ideation PFSH ED 2 PFSH: Medical History Chronic nasal congestion Chronic nausea Gynecomastia, male Panic attack Alcohol abuse Acute on chronic pancreatitis Transaminitis Hyperlipidemia Anxiety and depression GERD (gastroesophageal reflux disease) Hypertension Acute posttraumatic stress disorder Surgical History No pertinent past surgical history Family History Father Hypertension Social History Smoking and tobacco/nicotine status: never used tobacco/nicotine Alcohol intake: current Alcohol intake frequency: 0-2 Drinks per Day Substance/Drug Use: never Marital status: Number of children: 5 Current occupational status: employed Current gender identity: Male Physical Exam 2 Const: COMMON NORMALS: no acute distress GENERAL APPEARANCE: cooperative and comfortable ORIENTATION/CONSCIOUSNESS: Yes awake, Yes oriented to person, Yes oriented to place and Yes oriented to time HENMT: COMMON NORMALS: normocephalic, atraumatic and hearing grossly normal bilaterally HEAD & SCALP: normocephalic and atraumatic Resp: COMMON NORMALS: normal respiratory effort, No retractions, No use of accessory muscles and clear to auscultation bilaterally AUSCULTATION: clear to auscultation bilaterally Cardio: COMMON NORMALS: regular rate, regular rhythm and No murmurs present (Cardio) RATE: regular rate RHYTHM: regular rhythm GI: COMMON NORMALS: Soft to palpation and No hepatosplenomegaly present A USCULTATION: Yes normoactive bowel sounds PALPATION: Yes Soft to palpation, No Tenderness to palpation present (GI), No Guarding due to palpation present (GI) and Yes No hepatosplenomegaly present Extremity: COMMON NORMALS: normal to inspection, capillary refill normal, no clubbing, cyanosis or edema, no calf tenderness and no pedal edema Neuro: SENSORIUM/ORIENTATION: Yes oriented to person, Yes oriented to place and Yes oriented to time Skin: COMMON NORMALS: no rashes or lesions noted GENERAL SKIN EXAM: no rashes or lesions noted Course 2 Vital Signs: Vital signs: Vital Signs Temperature 98.1 F 09/19/23 07:24 Pulse Rate 105 H 09/19/23 08:16 Respiratory Rate 18 09/19/23 08:16 Blood Pressure 170/113 09/19/23 08:16 Pulse Oximetry 95 09/19/23 08:16 Oxygen Delivery Me thod Room Air 09/19/23 08:16 MDM - Alcohol Medical Decision Making Blood alcohol is markedly elevated is neutropenia and thrombocytopenia. Believe the worst of his symptoms today that precipitated the visit are from alcoholic gastritis his lipase is slightly elevated there is some component of pancreatitis as well although most of his pain seems to be epigastric. His blood alcohol is markedly elevated at 379. Patient is refusing to stay. He does have a ketoacidosis from his alcohol use in addition to thrombocytopenia and neutropenia and mild acute on chronic pancreatitis. However despite his elevated blood alcohol he is still awake and alert he remembers seeing us in the past he is very conversational and functional he can ambulate independently. No reason to place him on a 96-hour hold we have had extensive conversations with him in the past both the nurse and myself again encouraged him to stop drinking pointed out that severe detrimental health effects that is having on him. He denies that there is any difficulty with alcohol is adamant that her blood alcohol level is incorrect and that he only had 1 bottle of wine last evening. Patient is given education in written form of his discharge summary and encouraged to seek treatment for his alcoholism and obtain and maintain abstinence Differential Diagnosis Likely alcohol intoxication and alcohol ketoacidosis Medical Records I reviewed the patient's medical records. Lab Data I reviewed the patient's lab results. 09/19/23 07:43 09/19/23 07:43 Laboratory Results WBC 2.88 10^3/uL (3.29-11.43) L 09/19/23 07:43 RBC 4.82 10^6/uL (3.85-5.65) 09/19/23 07:43 Hgb 15.80 g/dL (11.27-16.99) 09/19/23 07:43 Hct 43.8 % (37-53) 09/19/23 07:43 MCV 90.9 fl (82-101) 09/19/23 07:43 MCH 32.8 pg (27-33) 09/19/23 07:43 MCHC 36.1 g/dL (30-55) 09/19/23 07:43 RDW 12.0 % (12.1-15.1) L 09/19/23 07:43 Plt Count 75 10^3/cmm (157-399) L 09/19/23 07:43 MPV 9.3 fL (7.4-10.4) 09/19/23 07:43 Neut % (Auto) 28.3 % 09/19/23 07:43 Lymph % (Auto) 61.8 % 09/19/23 07:43 [place] % (Auto) 8.3 % 09/19/23 07:43 Eos % (Auto) 0.3 % 09/19/23 07:43 Baso % (Auto) 1.0 % 09/19/23 07:43 Neut # (Auto) 0.81 10^3/uL (1.8-7.7) L* 09/19/23 07:43 Lymph # (Auto) 1.8 10^3/uL (0.8-4.8) 09/19/23 07:43 [place] # (Auto) 0.2 10^3/uL (0.2-0.9) 09/19/23 07:43 Eos # (Auto) 0.0 10^3/uL (0.0-0.8) 09/19/23 07:43 Baso # (Auto) 0.0 10^3/uL (0.0-0.1) 09/19/23 07:43 Nucleated RBC % (auto) 0 % 09/19/23 07:43 Nucleated RBCs # 0.0 /100WBC 09/19/23 07:43 Sodium 132 mmol/L (136-145) L 09/19/23 07:43 Potassium 4.4 mmol/L (3.5-5.1) 09/19/23 07:43 Chloride 88 mmol/L (98-107) L 09/19/23 07:43 Carbon Dioxide 21 mmol/L (22-29) L 09/19/23 07:43 Anion Gap 27.4 (5-19) H 09/19/23 07:43 BUN 8 mg/dL (6-20) 09/19/23 07:43 Creatinine 0.6 mg/dL (0.7-1.2) L 09/19/23 07:43 GFR Calculation 155.2 mL/min (90-130) H 09/19/23 07:43 Glucose 101 mg/dL (65-115) 09/19/23 07:43 Calculated Osmolality 272 mOsm/kg (285-295) L 09/19/23 07:43 Lactic Acid 4.7 mmol/L (0.5-2.2) H* 09/19/23 07:43 Calcium 9.2 mg/dL (8.5-10.5) 09/19/23 07:43 Total Bilirubin 0.6 mg/dL (0.15-1.2) 09/19/23 07:43 AST 135 U/L (0-40) H 09/19/23 07:43 ALT 95 U/L (0-41) H 09/19/23 07:43 Alkaline Phosphatase 179 U/L (40-130) H 09/19/23 07:43 Total Protein 8.2 g/dL (6.6-8.7) 09/19/23 07:43 Albumin 4.8 g/dL (3.5-5.2) 09/19/23 07:43 Globulin 3.4 g/dL (1.3-4.6) 09/19/23 07:43 Lipase 78 U/L (13-60) H 09/19/23 07:43 Ethyl Alcohol 379 mg/dL (0-10) H* 09/19/23 07:43 All radiology interpretation(s) finalized by discharge Discharge Plan Discharge Patient Disposition: Home Clinical Impression: Acute alcohol intoxication, Thrombocytopenia, Neutropenia Condition: Stable Prescriptions: No Action clonidine HCl 0.1 mg tablet 0.1 mg PO BID PRN (Reason: Blood Pressure) Qty: 60 0RF lisinopril 10 mg Tablet 10 mg PO DAILY Qty: 30 0RF metoprolol tartrate 25 mg Tablet 25 mg PO BID@0900,2100 Qty: 60 0RF famotidine [Pepcid] 20 mg tablet 20 mg PO BID Qty: 60 0RF sucralfate [Carafate] 1 gram tablet 1 g PO Q6H Qty: 60 0RF omeprazole 40 mg capsule,delayed release(DR/EC) 40 mg PO DAILY Discharge Orders: Discharge ED (Routine); Ordered 09/19/23 Ordered By: Igor Diaz Discharge Diet: Usual diet Discharge Activity: Increase activity as tolerated Coding Level of Care Code ED Soda Jerker for Al Duran
[2023-09-19 08:06] LABS: Eosinophils % 0.3 %; Hematocrit 43.8 % (37-53); Lymphocytes # 1.8 10^3/uL (0.8-4.8); Lymphocytes % 61.8 %; Mean Corpuscular HGB Conc 36.1 g/dL (30-55); Mean Corpuscular Hemoglobin 32.8 pg (27-33); Mean Corpuscular Volume 90.9 fl (82-101); Mean Platelet Volume 9.3 fL (7.4-10.4); Monocytes # 0.2 10^3/uL (0.2-0.9); Monocytes % 8.3 %; Neutrophils % 28.3 %; Nucleated Red Blood Cells % 0 %; Platelet Count 75 10^3/cmm (157-399); Red Blood Count 4.82 10^6/uL (3.85-5.65); White Blood Count 2.88 10^3/uL (3.29-11.43)
[2023-09-19] MEDS: ondansetron 2 mg/ML SDV 2 mL 4 MG IVP (08:12)
[2023-09-19] MEDS: pantoprazole 40 mg SDV 80 MG IVP (08:15)
[2023-09-19] MEDS: sodium chloride 0.9% 1,000 ML 999 ML IV (08:15)
[2023-09-19 08:16] VITALS: BP 170/113; PULSE 105; RESP 18; O2SAT 95
[2023-09-19 08:16] LABS: Neutrophils # 0.81 10^3/uL (1.8-7.7)
[2023-09-19 08:21] LABS: Alanine Aminotransferase 95 U/L (0-41); Albumin Level 4.8 g/dL (3.5-5.2); Alkaline Phosphatase 179 U/L (40-130); Anion Gap 27.4 (5-19); Aspartate Amino Transferase 135 U/L (0-40); Blood Urea Nitrogen 8 mg/dL (6-20); Calcium 9.2 mg/dL (8.5-10.5); Carbon Dioxide 21 mmol/L (22-29); Chloride 88 mmol/L (98-107); Globulin 3.4 g/dL (1.3-4.6); Glomerular Filtration Rate 155.2 mL/min (90-130); Glucose 101 mg/dL (65-115); Lipase 78 U/L (13-60); Osmolality Calculated 272 mOsm/kg (285-295); Potassium 4.4 mmol/L (3.5-5.1); Sodium 132 mmol/L (136-145); Total Bilirubin 0.6 mg/dL (0.15-1.2); Total Protein 8.2 g/dL (6.6-8.7)
[2023-09-19 08:22] LABS: Lactic Sepsis W/Reflex 4.7 mmol/L (0.5-2.2)
[2023-09-19 08:24] LABS: Alcohol Level 379 mg/dL (0-10)
[2023-09-19 09:35] LABS: Reflex Lactate Order REFLEX LACTIC ORDERD
== END 2023-09-19 09:11 | disposition home or self-care (01) ==
PROVIDERS: Emergency Provider Family Medicine; PCP Family Medicine Adult Medicine
DX: F10.129 Alcohol abuse with intoxication, unspecified (principal); Y90.8 Blood alcohol level of 240 mg/100 ml or more; D69.6 Thrombocytopenia, unspecified; D70.9 Neutropenia, unspecified; E78.5 Hyperlipidemia, unspecified; I10 Essential (primary) hypertension
CPT/HCPCS: 36415; 71045; 80053; 80307; 83605; 83690; 85025; 96374; 96375; 99284; C9113; J2405; J7030

== ENCOUNTER 2023-11-05 10:41 | Emergency (ER) | payer MEDICAID, SELFPAY ==
[2023-11-05 10:42] VITALS: BP 132/97; PULSE 104; TEMP 36.6; O2SAT 98; BMI 25.6
--- NOTE | 2023-11-05 11:20 | PC.PHAR ---
PER SPOUSE: PT ONLY TAKES LISINOPRIL 40 MG AND OMEPRAZOLE 40 MG ON A REGULAR BASIS. SHE WANTS ALL OTHER MEDS LEFT ON LIST WITH ORIGINAL FILL DATES EVEN THOUGH HE DOES NOT TAKE THEM CURRENTLY. 11/05/23
[2023-11-05] MEDS: sodium chloride 0.9% 1,000 ML 999 ML IV (11:23)
[2023-11-05 11:28] LABS: Basophils % 0.3 %; Hematocrit 35.4 % (37-53); Lymphocytes # 1.3 10^3/uL (0.8-4.8); Lymphocytes % 38.8 %; Mean Corpuscular Hemoglobin 33.8 pg (27-33); Mean Corpuscular Volume 91.2 fl (82-101); Mean Platelet Volume 10.7 fL (7.4-10.4); Monocytes # 0.5 10^3/uL (0.2-0.9); Monocytes % 14.5 %; Neutrophils # 1.52 10^3/uL (1.8-7.7); Neutrophils % 46.1 %; Nucleated Red Blood Cells % 0 %; Platelet Count 77 10^3/cmm (157-399); Red Blood Count 3.88 10^6/uL (3.85-5.65); Red Cell Distribution Width 13.4 % (12.1-15.1)
[2023-11-05 11:45] LABS: INR 1.13 (0.8-1.2)
[2023-11-05 11:46] LABS: Partial Thromboplastin Time 32.7 SECONDS (23.9-36.7)
[2023-11-05 11:53] LABS: Alanine Aminotransferase 73 U/L (0-41); Albumin Level 4.5 g/dL (3.5-5.2); Alkaline Phosphatase 172 U/L (40-130); Anion Gap 25.6 (5-19); Aspartate Amino Transferase 168 U/L (0-40); Blood Urea Nitrogen 9 mg/dL (6-20); Calcium 9.1 mg/dL (8.5-10.5); Carbon Dioxide 18 mmol/L (22-29); Chloride 76 mmol/L (98-107); Globulin 2.9 g/dL (1.3-4.6); Glomerular Filtration Rate 247.7 mL/min (90-130); Glucose 102 mg/dL (65-115); Osmolality Calculated 241 mOsm/kg (285-295); Potassium 3.6 mmol/L (3.5-5.1); Total Bilirubin 2.7 mg/dL (0.15-1.2); Total Protein 7.4 g/dL (6.6-8.7)
[2023-11-05 11:59] LABS: Alcohol Level 483 mg/dL (0-10); Sodium 116 mmol/L (136-145)
[2023-11-05 12:01] LABS: Lipase 440 U/L (13-60)
--- NOTE | 2023-11-05 12:07 | ED_ITS ---
HPI - Abdominal Pain 2 General: Chief Complaint: Nausea/Vomiting/Diarrhea Stated Complaint: N/V; ABD PAIN Time Seen by Provider: 11/05/23 10:49 History of Present Illness: 33-year-old male presents to the emergen cy department via EMS personnel secondary to stating that he is having epigastric abdominal pain. He states that he drinks every day and has been told he has chronic pancreatitis. He states that he drinks constantly because his ex- has been and accused pedophile and there is an upcoming trial. He denies suicidal ideation or homicidal ideation. He states that he feels like he is dehydrated needs an IV and IV fluid. Patient states he also has 10 out of 10 abdominal pain that he describes as a cramping type pain with intermittent nausea. He denies chest pain dizziness or lightheaded feeling. Associated Symptoms: Reports nausea Review of Systems 2 General: Reports: 10 or more systems reviewed and unremarkable except in HPI and below GI: Reports: abdominal pain and nausea Psych: Reports: other (Daily alcohol use); Denies: suicidal ideation or homicidal ideation [facility] 2 PFSH: Medical History (Updated 11/05/23 @ 12:14 by Doyle Luciano MD) Chronic hyponatremia Transaminitis Chronic nausea Gynecomastia, male Panic attack Acute on chronic pancreatitis Hyperlipidemia Anxiety and depression GERD (gastroesophageal reflux disease) Hypertension Acute posttraumatic stress disorder Surgical History No pertinent past surgical history Family History Father Hypertension Social History Smoking and tobacco/nicotine status: never used tobacco/nicotine Alcohol intake: current Alcohol intake frequency: 0-2 Drinks per Day Substance/Drug Use: never Marital status: Number of children: 5 Current occupational status: employed Current gender identity: Male Physical Exam 2 Narrative: EXAM NARRATIVE: Constitutional: the patient appears well nourished and of normal development. Vital signs as documented. No acute distress at present. Alert and oriented-to person, place, time and situation. Head, eyes, ears, nose, mouth, throat: Normocephalic, atraumatic. Pupils-equal, round, reactive to light. Obvious scleral icterus. Normal-appearing external ears. Normal appearing nasal turbinates, no drainage. No obvious oral lesions. Neck: Supple, trachea is midline, no lymphadenopathy, no jugular venous distension, thyromegaly, or carotid bruits. Carotid upstrokes are brisk bilaterally. Lungs: clear to auscultation to all lung chatman. Symmetrical rise and fall of chest, no obvious signs of increased work of breathing at present. Cardiac: Regular rate and rhythm, positive S1, S2. No murmurs, rubs or gallops that I can appreciate Abdomen: Soft, non-tender to palpation, normal active bowel sounds to all quadrants. No palpable masses, no organomegaly and abdominal bruits. Extremities: 2+ pulses in the upper extremities that are equal bilaterally, 2+ pulses in the lower extremities that are equal bilaterally. Non-edematous. Moves all extremities well, sensation to all extremities are noted. Skin: Warm, dry, intact. Course 2 Vital Signs: Vital signs: Vital Signs Temperature 98 F 11/05/23 10:42 Pulse Rate 104 H 11/05/23 10:42 Blood Pressure 132/97 11/05/23 10:42 Pulse Oximetry 98 11/05/23 10:42 Oxygen Delivery Me thod Room Air 11/05/23 10:42 MDM - Abdominal Pain Medical Decision Making Physical exam completed and documented, I did review the patient's laboratory evaluation and previous medical records it does appear that he has an extensive alcohol abuse problem I did offer him assistance and admission for his chronic alcohol abuse and the patient has declined. He states that all he wants is an IV and IV fluid hydration and would take some Dilaudid pain medication. I did advise the patient that given his over 400 alcohol level that I was not comfortable with providing him opioid pain medications I did discuss his elevated liver enzymes as well as his sodium of 116. I advised him that with a sodium level that is low he is predisposed to neurologic symptoms to include seizure and potentially . Patient verbalized understanding and stated all he wanted was IV fluid and that he wants no further evaluation and wants to be discharged. He demanded to have his IV removed and I advised him that I would tell the nursing staff and by the time the nursing staff came to the room approximately 5 minutes later the patient had already pulled his IV out and was standing at the doors of the emergency department requesting to be discharged. I again advised the patient of the importance of allowing us to continue to treat him given his elevated alcohol level and elevated transaminases as well as his hyponatremia and he stated he understood the risk and possible complications as well as the benefits and wanted no further treatment other than narcotic pain medications. Medical Records I reviewed the patient's medical records. Lab Data I reviewed the patient's lab results. 11/05/23 11:11 11/05/23 11:11 Labs/Radiology: Laboratory Results WBC 3.30 10^3/uL (3.29-11.43) 11/05/23 11:11 RBC 3.88 10^6/uL (3.85-5.65) 11/05/23 11:11 Hgb 13.10 g/dL (11.27-16.99) 11/05/23 11:11 Hct 35.4 % (37-53) L 11/05/23 11:11 MCV 91.2 fl (82-101) 11/05/23 11:11 MCH 33.8 pg (27-33) H 11/05/23 11:11 MCHC 37.0 g/dL (30-55) 11/05/23 11:11 RDW 13.4 % (12.1-15.1) 11/05/23 11:11 Plt Count 77 10^3/cmm (157-399) L 11/05/23 11:11 MPV 10.7 fL (7.4-10.4) H 11/05/23 11:11 Neut % (Auto) 46.1 % 11/05/23 11:11 Lymph % (Auto) 38.8 % 11/05/23 11:11 [place] % (Auto) 14.5 % 11/05/23 11:11 Eos % (Auto) 0.0 % 11/05/23 11:11 Baso % (Auto) 0.3 % 11/05/23 11:11 Neut # (Auto) 1.52 10^3/uL (1.8-7.7) L 11/05/23 11:11 Lymph # (Auto) 1.3 10^3/uL (0.8-4.8) 11/05/23 11:11 [place] # (Auto) 0.5 10^3/uL (0.2-0.9) 11/05/23 11:11 Eos # (Auto) 0.0 10^3/uL (0.0-0.8) 11/05/23 11:11 Baso # (Auto) 0.0 10^3/uL (0.0-0.1) 11/05/23 11:11 Nucleated RBC % (auto) 0 % 11/05/23 11:11 Nucleated RBCs # 0.0 /100WBC 11/05/23 11:11 PT 14.90 SECONDS (12.1-14.9) 11/05/23 11:11 INR 1.13 (0.8-1.2) 11/05/23 11:11 APTT 32.7 SECONDS (23.9-36.7) 11/05/23 11:11 Sodium 116 mmol/L (136-145) L* 11/05/23 11:11 Potassium 3.6 mmol/L (3.5-5.1) 11/05/23 11:11 Chloride 76 mmol/L (98-107) L 11/05/23 11:11 Carbon Dioxide 18 mmol/L (22-29) L 11/05/23 11:11 Anion Gap 25.6 (5-19) H 11/05/23 11:11 BUN 9 mg/dL (6-20) 11/05/23 11:11 Creatinine 0.4 mg/dL (0.7-1.2) L 11/05/23 11:11 GFR Calculation 247.7 mL/min (90-130) H 11/05/23 11:11 Glucose 102 mg/dL (65-115) 11/05/23 11:11 Calculated Osmolality 241 mOsm/kg (285-295) L 11/05/23 11:11 Calcium 9.1 mg/dL (8.5-10.5) 11/05/23 11:11 Total Bilirubin 2.7 mg/dL (0.15-1.2) H 11/05/23 11:11 AST 168 U/L (0-40) H 11/05/23 11:11 ALT 73 U/L (0-41) H 11/05/23 11:11 Alkaline Phosphatase 172 U/L (40-130) H 11/05/23 11:11 Total Protein 7.4 g/dL (6.6-8.7) 11/05/23 11:11 Albumin 4.5 g/dL (3.5-5.2) 11/05/23 11:11 Globulin 2.9 g/dL (1.3-4.6) 11/05/23 11:11 Lipase 440 U/L (13-60) H 11/05/23 11:11 Ethyl Alcohol 483 mg/dL (0-10) H* 11/05/23 11:11 No radiology studies performed this visit Discharge Plan Discharge Patient Disposition: Home Clinical Impression: Alcohol abuse, Acute hyponatremia, Elevated liver transaminase level Condition: Stable Prescriptions: No Action clonidine HCl 0.1 mg tablet 0.1 mg PO BID PRN (Reason: Blood Pressure) Qty: 60 0RF omeprazole 40 mg capsule,delayed release(DR/EC) 40 mg PO DAILY Qty: 90 0RF metoprolol tartrate 25 mg Tablet 25 mg PO BID@0900,2100 Qty: 60 0RF famotidine [Pepcid] 20 mg tablet 20 mg PO BID Qty: 60 0RF sucralfate [Carafate] 1 gram tablet 1 g PO Q6H Qty: 60 0RF thiamine HCl (vitamin B1) 100 mg tablet 100 mg PO DAILY folic acid 1 mg tablet 1 mg PO DAILY lisinopril 40 mg tablet 40 mg PO DAILY ondansetron 4 mg tablet,disintegrating 4 mg PO Q6H PRN (Reason: Nausea And Vomiting) Magtab 84 mg tablet extended release 84 mg PO DAILY Discharge Orders: Discharge ED (Routine); Ordered 11/05/23 Ordered By: Doyle Luciano Referrals: Antonio Alvarado MD [Primary Care Provider] - Discharge Diet: Advance as tolerated Discharge Activity: Resume usual activity Patient Instructions: Opioid Safety, Pain Management Activity Restrictions/Additional Instructions: Activity Restrictions/Additional Instructions: Thank you for choosing [facility] for your healthcare needs today. Please realize that you were seen in the Emergency Department and that we are providing you with an emergency medical screening exam and this may not be a complete and all inclusive of all the testing and or medical work-up that you may need to determine your ailment or severity of your illness. It is very important that you follow-up as instructed with your Primary care provider or Specialist for additional evaluation and to discuss your medical treatment plan. It is extremely important to stop using alcohol as it is chronically damaging your liver. There are many local resources that you may utilize to assist you if you wish to stop using alcohol. Coding Level of Care Code ED Tax Processor for Al Duran
== END 2023-11-05 12:53 | disposition home or self-care (01) ==
PROVIDERS: Emergency Provider Internal Medicine; PCP Family Medicine Adult Medicine
DX: F10.10 Alcohol abuse, uncomplicated (principal); Y90.8 Blood alcohol level of 240 mg/100 ml or more; E87.1 Hypo-osmolality and hyponatremia; R74.01 Elevation of levels of liver transaminase levels; E78.5 Hyperlipidemia, unspecified; I10 Essential (primary) hypertension
CPT/HCPCS: 80053; 80307; 83690; 85025; 85610; 85730; 96360; 99284; J7030

== ENCOUNTER 2023-11-29 17:42 | Emergency (ER) | payer MEDICAID, SELFPAY ==
[2023-11-29] VITALS (46 sets, daily range): BP systolic 108–150; BP diastolic 73–104; PULSE 104–111; TEMP 36.7; O2SAT 96–100; BMI 23.0
--- NOTE | 2023-11-29 17:47 | ED_ITS ---
HPI - Nausea/Vomiting/Diarrhea 2 General: Chief complaint: Weakness Stated complaint: Fall, weakness, N/V/D Time Seen by Provider: 11/29/23 17:47 History of Present Illness: 33-year-old male patient comes in today with weakness and falls. Spouse states that yesterday he was unable to hold anything down. Today he has been able to hold down some fluids. Patient has also been jaundiced for about 1 week now. Patient has a history of EtOH dependence. Patient reports a history of chronic pancreatitis, GERD, hypertension, liver enzyme elevations. Patient appears unwell and jaundiced. Review of Systems 2 General: Reports: 10 or more systems reviewed and unremarkable except in HPI and below PFSH ED 2 PFSH: Medical History (Updated 11/29/23 @ 21:43 by ESTEFANIA Talbot) Chronic hyponatremia Transaminitis Chronic nausea Gynecomastia, male Panic attack Acute on chronic pancreatitis Hyperlipidemia Anxiety and depression GERD (gastroesophageal reflux disease) Hypertension Acute posttraumatic stress disorder Surgical History No pertinent past surgical history Family History Father Hypertension Social History Smoking and tobacco/nicotine status: never used tobacco/nicotine Alcohol intake: current Alcohol intake frequency: 0-2 Drinks per Day Substance/Drug Use: never Marital status: Number of children: 5 Current occupational status: employed Current gender identity: Male Physical Exam 2 Const: COMMON NORMALS: alert HENMT: COMMON NORMALS: normocephalic HEAD & SCALP: normocephalic Neck/C-Spine: COMMON NORMALS: full ROM Chest: COMMONS NORMALS: normal inspection of the chest Resp: COMMON NORMALS: normal respiratory effort and clear to auscultation bilaterally AUSCULTATION: clear to auscultation bilaterally Cardio: COMMON NORMALS: regular rhythm RATE: tachycardic RHYTHM: regular rhythm GI: COMMON NORMALS: Soft to palpation PALPATION: Yes Soft to palpation Back/Pelvis: COMMON NORMALS: thoracic and lumbar spine normal to inspection Neuro: SENSORIUM/ORIENTATION: Yes alert Skin: COMMON NORMALS: turgor normal GENERAL SKIN EXAM: turgor normal Course 2 Vital Signs: Vital signs: Vital Signs Temperature 98.1 F 11/29/23 17:49 Pulse Rate 104 H 11/29/23 17:49 Blood Pressure 141/101 11/29/23 21:30 Pulse Oximetry 99 11/29/23 21:30 Oxygen Delivery Me thod Room Air 11/29/23 17:49 MDM - Nausea/Vomiting/Diarrhea Medical Decision Making 33-year-old male patient comes in today with inability to hold fluids down. Patient has a chronic history of alcohol dependence disorder. Spouse reports that she has noticed the patient has been jaundiced for about 1 week. Patient was unable to hold anything down yesterday but has been able to hold some water down today. Patient skin is warm and dry. Patient is jaundiced. Patient has yellowing of the eyes. Respirations are even lungs are clear to auscultation. Abdomen soft with some liver enlargement. Pulse rate is 104. Vital signs otherwise are normal. Differential diagnosis includes hepatic encephalopathy, acute liver failure, hyponatremia, acute on chronic pancreatitis. Patient CBC was unremarkable. CMP noted a sodium of 126 which is improved from prior exams. Patient's alcohol level is 427. Ammonia was 69. CT of the head was unremarkable. Liver enzymes were elevated with elevation in bilirubin of 11. Discussed with patient need to stop alcohol consumption. Patient was provided with naltrexone and Librium to help with the cessation of alcohol. Patient was also written for Zofran for nausea and vomiting. Patient was written for lactulose to help with his bilirubin. Explained to patient and family that patient strongly needed to avoid any further alcohol ingestion. Family reported understanding. Reviewed patient with Dr. Carson who agreed with plan of care and need for follow-up or return to the ER. Lab Data 11/29/23 17:25 11/29/23 17:25 Radiology Impressions Chest X-Ray 11/29/23 18:05 IMPRESSION: No acute findings. Head CT 11/29/23 18:05 IMPRESSION: 1. No evidence of acute intracranial pathology. 2. Mild atrophy and suggested trace deep white matter angio pathic ischemic change out of proportion to patient's age. Laboratory Results WBC 5.65 10^3/uL (3.29-11.43) 11/29/23 17:25 RBC 3.73 10^6/uL (3.85-5.65) L 11/29/23 17:25 Hgb 13.30 g/dL (11.27-16.99) 11/29/23 17: Hct 36.8 % (37-53) L 11/29/23 17:25 MCV 98.7 fl (82-101) 11/29/23 17:25 MCH 35.7 pg (27-33) H 11/29/23 17: MCHC 36.1 g/dL (30-55) 11/29/23 17: RDW 16.8 % (12.1-15.1) H 11/29/23 17: Plt Count 135 10^3/cmm (157-399) L 11/29/23 17: MPV 10.3 fL (7.4-10.4) 11/29/23 17: Neut % (Auto) 73.1 % 11/29/23 17:25 Lymph % (Auto) 17.0 % 11/29/23: [place] % (Auto) 8.8 % 11/29/23: Eos % (Auto) 0.0 % 11/29/23 17: Baso % (Auto) 0.7 % 11/29/23: Neut # (Auto) 4.13 10^3/uL (1.8-7.7) 11/29/23 17: Lymph # (Auto) 1.0 10^3/uL (0.8-4.8) 11/29/23:25 [place] # (Auto) 0.5 10^3/uL (0.2-0.9) 11/29/23: Eos # (Auto) 0.0 10^3/uL (0.0-0.8) 11/29/23:25 Baso # (Auto) 0.0 10^3/uL (0.0-0.1) 11/29/23: Nucleated RBC % (auto) 0 % 11/29/23: Nucleated RBCs # 0.0 /100WBC 11/29/23 17:25 PT 18.60 SECONDS (12.1-14.9) H 11/29/23 17:25 INR 1.49 (0.8-1.2) H 11/29/23 17:25 APTT 48.9 SECONDS (23.9-36.7) H 11/29/23 17:25 Sodium 126 mmol/L (136-145) L 11/29/23 17:25 Potassium 3.4 mmol/L (3.5-5.1) L 11/29/23 17:25 Chloride 88 mmol/L (98-107) L 11/29/23 17:25 Carbon Dioxide 20 mmol/L (22-29) L 11/29/23 17:25 Anion Gap 21.4 (5-19) H 11/29/23 17:25 BUN 2 mg/dL (6-20) L 11/29/23 17:25 Creatinine 0.2 mg/dL (0.7-1.2) L 11/29/23 17:25 GFR Calculation 551.3 mL/min (90-130) H 11/29/23 17:25 Glucose 106 mg/dL (65-115) 11/29/23 17:25 Calculated Osmolality 259 mOsm/kg (285-295) L 11/29/23 17:25 Calcium 7.8 mg/dL (8.5-10.5) L 11/29/23 17:25 Magnesium 1.6 mg/dL (1.7-2.3) L 11/29/23 17:25 Total Bilirubin 11.1 mg/dL (0.15-1.2) H* 11/29/23 17:25 AST 435 U/L (0-40) H 11/29/23 17:25 ALT 102 U/L (0-41) H 11/29/23 17:25 Alkaline Phosphatase 437 U/L (40-130) H 11/29/23 17:25 Ammonia 69 umol/L (16-60) H 11/29/23 21:10 Total Protein 6.8 g/dL (6.6-8.7) 11/29/23 17:25 Albumin 3.4 g/dL (3.5-5.2) L 11/29/23 17:25 Globulin 3.4 g/dL (1.3-4.6) 11/29/23 17:25 Lipase 45 U/L (13-60) 11/29/23 17:25 Urine Color Yellow (Yellow) 11/29/23 20:35 Urine Appearance Clear (CLEAR) 11/29/23 20:35 Urine pH 5 (5-7) 11/29/23 20:35 Ur Specific [place] 1.015 (1.005-1.030) 11/29/23 20:35 Urine Protein Neg (Negative) 11/29/23 20:35 Urine Glucose (UA) Norm (Normal) 11/29/23 20:35 Urine Ketones 1+ (Negative) H 11/29/23 20:35 Urine Blood 3+ (Negative) H 11/29/23 20:35 Urine Nitrate Negative (Negative) 11/29/23 20:35 Urine Bilirubin 2+ (Negative) H 11/29/23 20:35 Urine Urobilinogen Neg mg/dL (Negative) 11/29/23 20:35 Ur Leukocyte Esterase Negative (Negative) 11/29/23 20:35 Urine RBC 5-10 /hpf (0-2) H 11/29/23 20:35 Urine WBC None /hpf (0-5) 11/29/23 20:35 Ur Squamous Epith Cells None /hpf (0-5) 11/29/23 20:35 Amorphous Sediment Not Reportable 11/29/23 20:35 Urine Bacteria Trace /hpf (NONE) 11/29/23 20:35 Urine Mucus 2+ /hpf 11/29/23 20:35 Urine Opiates Screen Negative ng/mL (Negative) 11/29/23 20:35 Ur Barbiturates Screen Negative ng/mL (Negative) 11/29/23 20:35 Ur Phencyclidine Scrn Negative ng/mL (Negative) 11/29/23 20:35 Ur Amphetamines Screen Negative ng/mL (Negative) 11/29/23 20:35 U Benzodiazepines Scrn Negative ng/mL (Negative) 11/29/23 20:35 Urine Cocaine Screen Negative ng/mL (Negative) 11/29/23 20:35 U Marijuana (THC) Screen Negative ng/mL (Negative) 11/29/23 20:35 Ethyl Alcohol 472 mg/dL (0-10) H* 11/29/23 17:25 All radiology interpretation(s) finalized by discharge EKG Data EKG 1: I personally reviewed and interpreted this EKG as follows: EKG interpretation date: 11/29/23 EKG interpretation time: 18:00 Prior EKG tracings: not available for review Interpretation: Sinus tachycardia, regular rate at 103 bpm, no ST elevation, no ectopy. No prior exam available for comparison. Computer generated interpretation: Sinus tachycardia, abnormal rhythm EKG, unconfirmed report. Discharge Plan Discharge Patient Disposition: Home Clinical Impression: Alcoholic liver disease Condition: Stable Prescriptions: New lactulose 10 gram/15 mL solution 10 g PO TID 30 Days Qty: 1350 0RF naltrexone 50 mg tablet 50 mg PO DAILY Qty: 14 0RF chlordiazepoxide HCl 25 mg capsule 25 mg PO Q8H 5 Days Qty: 15 0RF ondansetron 4 mg tablet,disintegrating 4 mg PO Q6H PRN (Reason: nausea and vomiting) Qty: 14 0RF No Action clonidine HCl 0.1 mg tablet 0.1 mg PO BID PRN (Reason: Blood Pressure) Qty: 60 0RF omeprazole 40 mg capsule,delayed release(DR/EC) 40 mg PO DAILY Qty: 90 0RF metoprolol tartrate 25 mg Tablet 25 mg PO BID@0900,2100 Qty: 60 0RF famotidine [Pepcid] 20 mg tablet 20 mg PO BID Qty: 60 0RF sucralfate [Carafate] 1 gram tablet 1 g PO Q6H Qty: 60 0RF thiamine HCl (vitamin B1) 100 mg tablet 100 mg PO DAILY folic acid 1 mg tablet 1 mg PO DAILY lisinopril 40 mg tablet 40 mg PO DAILY ondansetron 4 mg tablet,disintegrating 4 mg PO Q6H PRN (Reason: Nausea And Vomiting) Magtab 84 mg tablet extended release 84 mg PO DAILY Discharge Orders: Discharge ED (Routine); Ordered 11/29/23 Ordered By: Edgardo Glover Referrals: Antonio Alvarado MD [Primary Care Provider] - Patient Instructions: Cirrhosis of the Liver (ED), Liver Disease Diet (DC) Activity Restrictions/Additional Instructions: You need to stop alcohol drinking in order to stop the damage to your liver. I have prescribed you 2 medications to help with this cessation of alcohol usage. The chlordiazepoxide is a medication which will prevent seizures and help with anxiety from the cessation of alcohol. The naltrexone will help with the cravings for alcohol. You have also been prescribed lactulose to help with the removal of bilirubin from your system for the jaundice. I have also prescribed some Zofran to help with nausea and vomiting. You will need to follow-up with a superintendent local for further evaluation and treatment of your liver disease. A case specialist will contact you regarding this follow-up appointment. Follow-up with primary care otherwise as needed. Return to ER for new concerns. Coding Level of Care Code ED Brand Planner for Al Duran
--- NOTE | 2023-11-29 18:05 | XRR_ITS ---
PROCEDURE INFORMATION: Exam: XR Chest Exam date and time: 11/29/2023 6:20 PM Age: 33 years old Clinical indication: Other: Weakness TECHNIQUE: Imaging protocol: Radiologic exam of the chest. Views: 1 view. COMPARISON: CR XR chest 1V portable [id number] 09/19/2023 7:39 AM FINDINGS: Lungs: Unremarkable. No consolidation. Pleural spaces: Unremarkable. No pleural effusion. No pneumothorax. Heart/Mediastinum: Unremarkable. No cardiomegaly. Bones/joints: Unremarkable. XR/XR chest 1V portable [id number] IMPRESSION: No acute findings.
--- NOTE | 2023-11-29 18:05 | CTR_ITS ---
PROCEDURE INFORMATION: Exam: CT Head Without Contrast Exam date and time: 11/29/2023 6:27 PM Age: 33 years old Clinical indication: Injury or trauma; Fall; Blunt trauma (contusions or hematomas); Additional info: Fall injury TECHNIQUE: Imaging protocol: Computed tomography of the head without contrast. Radiation optimization: All CT scans at this facility use at least one of these dose optimization techniques: automated exposure control; mA and/or kV adjustment per patient size (includes targeted exams where dose is matched to clinical indication); or iterative reconstruction. COMPARISON: CT head wo con* [id number] 08/07/2023 9:19 AM RADIATION DOSE METRICS: Total DLP (mGy-cm): 1089 FINDINGS: Brain: There is mild global volume loss, somewhat out of proportion to patient's age. There are questionable trace deep white matter changes, likely related to microangiopathic ischemic change. There is no evidence of intracranial hemorrhage. No mass or mass effect is identified. Cerebral ventricles: No ventriculomegaly. Paranasal sinuses: Visualized sinuses are unremarkable. No fluid levels. Mastoid air cells: Visualized mastoid air cells are well aerated. Bones/joints: Unremarkable. No acute fracture. Soft tissues: Unremarkable. CT/CT head wo con* [id number] IMPRESSION: 1. No evidence of acute intracranial pathology. 2. Mild atrophy and suggested trace deep white matter angio pathic ischemic change out of proportion to patient's age.
[2023-11-29] MEDS: PHENobarbital 130 mg/mL SDV 1 mL 60 MG IVP (18:07)
[2023-11-29 18:09] LABS: Basophils % 0.7 %; Hematocrit 36.8 % (37-53); Mean Corpuscular HGB Conc 36.1 g/dL (30-55); Mean Corpuscular Hemoglobin 35.7 pg (27-33); Mean Corpuscular Volume 98.7 fl (82-101); Mean Platelet Volume 10.3 fL (7.4-10.4); Monocytes # 0.5 10^3/uL (0.2-0.9); Monocytes % 8.8 %; Neutrophils # 4.13 10^3/uL (1.8-7.7); Neutrophils % 73.1 %; Nucleated Red Blood Cells % 0 %; Platelet Count 135 10^3/cmm (157-399); Red Blood Count 3.73 10^6/uL (3.85-5.65); Red Cell Distribution Width 16.8 % (12.1-15.1); White Blood Count 5.65 10^3/uL (3.29-11.43)
[2023-11-29] MEDS: sodium chloride 0.9% 1,000 ML 999 ML IV (18:10)
[2023-11-29 18:19] LABS: INR 1.49 (0.8-1.2)
[2023-11-29 18:20] LABS: Partial Thromboplastin Time 48.9 SECONDS (23.9-36.7)
[2023-11-29 18:22] LABS: Alanine Aminotransferase 102 U/L (0-41); Albumin Level 3.4 g/dL (3.5-5.2); Alkaline Phosphatase 437 U/L (40-130); Anion Gap 21.4 (5-19); Aspartate Amino Transferase 435 U/L (0-40); Blood Urea Nitrogen 2 mg/dL (6-20); Calcium 7.8 mg/dL (8.5-10.5); Carbon Dioxide 20 mmol/L (22-29); Chloride 88 mmol/L (98-107); Globulin 3.4 g/dL (1.3-4.6); Glomerular Filtration Rate 551.3 mL/min (90-130); Glucose 106 mg/dL (65-115); Lipase 45 U/L (13-60); Osmolality Calculated 259 mOsm/kg (285-295); Potassium 3.4 mmol/L (3.5-5.1); Sodium 126 mmol/L (136-145); Total Protein 6.8 g/dL (6.6-8.7)
[2023-11-29 18:26] LABS: Alcohol Level 472 mg/dL (0-10); Total Bilirubin 11.1 mg/dL (0.15-1.2)
[2023-11-29 18:57] LABS: Magnesium 1.6 mg/dL (1.7-2.3)
--- NOTE | 2023-11-29 19:10 | ECG_ITS ---
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 Measurements Intervals [place] Rate: 103 P: 68 FL: 179 QRS: 56 QRSD: 77 T: 35 QT: 327 QTc: 429 Interpretive Statements SINUS TACHYCARDIA ABNORMAL RHYTHM ECG Compared to ECG 09/14/2023 20:18:24 No significant changes Electronically Signed On 11-30-2023 10:50:30 STEAMFITTER by Saundra Martinez M.D. [id number] f
[2023-11-29] MEDS: magnesium sulfate premix 1 GM/100 ML PIGGYBACK IV (20:05)
[2023-11-29] MEDS: lactated ringers 1,000 ML 999 ML IV (20:07)
[2023-11-29] MEDS: ondansetron 2 mg/ML SDV 2 mL 4 MG IVP (20:07)
[2023-11-29 21:02] LABS: Add Urine Microscopic? YES; Bilirubin Urine 2+ (Negative); Blood Urine 3+ (Negative); Glucose Urine UA Norm (Normal); Ketones Urine 1+ (Negative); Leukocyte Esterase Urine Negative (Negative); Nitrate Urine Negative (Negative); Protein Urine Neg (Negative); Specific Gravity, Urine 1.015 (1.005-1.030); Urine Appearance Clear (CLEAR); Urine Color Yellow (Yellow); Urobilinogen Urine Neg (Negative); pH Urine 5 (5-7)
[2023-11-29 21:03] LABS: Add Urine Culture? No; Bacteria Urine TRACE /hpf; Mucus Urine 2+ /hpf
[2023-11-29 21:27] LABS: Amphetamines Screen Urine Negative (Negative); Barbiturates Screen Urine Negative (Negative); Benzodiazepines Screen Urine Negative (Negative); Cocaine Screen Urine Negative (Negative); Opiate Screen Urine Negative (Negative); PCP Screen Urine Negative (Negative); THC Screen Urine Negative (Negative)
[2023-11-29 21:27] LABS: Ammonia 69 umol/L (16-60)
[2023-11-29] MEDS: lactulose oral liq 20 gm/30 mL UDC PO (21:28)
[2023-11-29] MEDS: pantoprazole 40 mg SDV IVP (21:54)
[2023-11-29] MEDS: fentaNYL 50 mcg/mL INJ 2mL IVP (21:54)
== END 2023-11-29 22:08 | disposition home or self-care (01) ==
PROVIDERS: Emergency Provider Nurse Practitioner Family; PCP Family Medicine Adult Medicine
DX: K70.9 Alcoholic liver disease, unspecified (principal); E78.5 Hyperlipidemia, unspecified; I10 Essential (primary) hypertension
CPT/HCPCS: 36415; 70450; 71045; 80053; 80306; 80307; 81001; 82140; 83690; 83735; 85025; 85610; 85730; 93005; 96361; 96365; 96375; 99285; C9113; J2405; J2560; J3010; J3475; J7030; J7120

== ENCOUNTER 2023-12-13 09:43 | Inpatient (IN) | payer MEDICAID, SELFPAY ==
[2023-12-13] VITALS (127 sets, daily range): BP systolic 54–135; BP diastolic 34–93; PULSE 83–142; RESP 13–35; TEMP 36.6–36.9; O2SAT 92–100; BMI 26.4
--- NOTE | 2023-12-13 09:51 | XR_ITS ---
WS: [id number] Cervical spine, 3 views, 12/13/2023 Clinical Data: trauma Comparison: Cervical spine, 11/30/2022 Findings: No compression fractures are seen. On the lateral view the C5-C7 vertebra are obscured by t he overlying shoulders. The disc heights are normal. There is no prevertebral soft tissue swelling. T he odontoid is unremarkable. The soft tissues of the neck and the lung apices are normal. There are m onitor leads on the chest wall. Impression: Negative cervical spine with a notation at the C5-C7 vertebral bodies are obscured on the lateral vie w.
--- NOTE | 2023-12-13 09:51 | ECG_ITS ---
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 Measurements Intervals [place] Rate: 98 P: 56 ME: 161 QRS: 43 QRSD: 73 T: 12 QT: 336 QTc: 429 Interpretive Statements SINUS RHYTHM LOW QRS VOLTAGE IN PRECORDIAL LEADS [QRS DEFLECTION < 1.0 mV IN CHEST LEADS] Compared to ECG 11/29/2023 17:51:26 Low QRS voltage now present Sinus tachycardia no longer present Electronically Signed On 12-13-2023 10:55:35 PROPERTY ANALYST by Gino Islas M.D. [email or web address] Genesyskaiser permanente s[facility] clara medical centerSeeo/store/[id number]
--- NOTE | 2023-12-13 10:00 | CT_ITS ---
WS: [id number] CT CHEST, ABDOMEN, AND PELVIS TECHNIQUE: Contrast-enhanced CT of the chest, abdomen, and pelvis with coronal and sagittal reformatt ed images. CLINICAL INFORMATION: trauma COMPARISON: Multiple prior CTs including April and July 2023 DLP: 1222.[address] scans at [facility] use at least one of these dose optimization techniques: automated e xposure control; mA and/or kV adjustment per patient size (includes targeted exams where dose is matc hed to clinical indication); or iterative reconstruction. CT CHEST: Lungs are well aerated. No acute pulmonary infiltrates. No focal pneumonia or pleural fluid. Large hamilton bpectoral mixed attenuation hematoma with surrounding soft tissue induration extending to the LEFT ch est wall and LEFT axilla. Hematoma measures approximately 15.9 x 7.1 x 17.7 cm. Chronic appearing LEF T rib fracture with callus formation. No acute appearing LEFT rib fractures. CT ABDOMEN AND PELVIS: Marked hepatomegaly diffuse fatty infiltration of the liver. 2.3 cm enhancing RIGHT hepatic mass nons pecific on this study. This can be followed up with triphasic liver CT or MRI. This is relatively sta ble compared to 08/06/2023. Portal vein and splenic vein are patent. Normal GE junction. Diffuse gastritis and duodenitis. Periph eral enhancing fluid distended gallbladder likely due to hepatic dysfunction. Normal pancreatic paren chymal enhancement. No hydronephrosis in either kidney. Celiac and SMA are patent. Adrenal glands are normal. Normal sigmoid colon. Orozco catheter. Small cystocele. Nonspecific numerous lytic lesions in the bony pelvis. This includes both iliac wings. Metastatic dis ease not excluded. This can be followed up with bone scan. IMPRESSION: 1. Lungs are well aerated. No pneumothorax or acute infiltrate. 2. Large subpectoral mixed attenuation hematoma overlying the LEFT chest wall described above. No vi sualized acute rib fractures. 3. Marked hepatomegaly with diffuse fatty infiltration. 4. Stable indeterminant 2.3 cm heterogeneously enhancing lesion in the RIGHT hepatic lobe. This can be further evaluated with triphasic liver CT or MRI. This is unchanged over multiple prior examinatio ns. 5. Diffuse gastritis and duodenitis. 6. Orozco catheter in place. Small cystocele. 7. Trace free fluid in the pelvis. 8. Indeterminate numerous lytic lesions within the bony pelvis more prominent in the iliac wings. Th is is nonspecific but suspicious for metastatic disease. This has increased and become more apparent over the last several examinations. This could be further evaluated with bone scan. Notified Igor Diaz DO at 12/13/2023 12:34 PM.
--- NOTE | 2023-12-13 10:01 | XR_ITS ---
WS: [id number] Portable AP semiupright chest, 12/13/2023 Clinical Data: dyspnea/cough Comparison: Portable chest, 11/29/2023 Findings: No nodules, masses or effusions are seen. The heart is normal. The pulmonary vascularity is not increased. No pneumonia or pneumothorax is seen. There are monitor leads on the chest wall. Impression: Negative chest.
--- NOTE | 2023-12-13 10:03 | CT_ITS ---
WS: [id number] CT HEAD TECHNIQUE: Noncontrast CT of the head obtained from the skullbase to the vertex. CLINICAL INFORMATION: trauma COMPARISON: 11/29/2023 DLP: 1094.[address] scans at [facility] use at least one of these dose optimization techniques: automated e xposure control; mA and/or kV adjustment per patient size (includes targeted exams where dose is matc hed to clinical indication); or iterative reconstruction. FINDINGS: No evidence of intracranial hemorrhage or mass effect. Ventricular system and basal cisterns are ayala nt. Mild small vessel changes with moderate parenchymal volume loss. No extra-axial fluid collections . No evidence of mass or mass effect. Normal ramirez-white differentiation. Paranasal sinuses and mastoid air cells are well aerated. .Normal visualized soft tissues. IMPRESSION: 1. No evidence of intracranial hemorrhage or mass effect. 2. Mild small vessel changes with moderate parenchymal volume loss advanced for patient this age. 3. No acute intracranial findings.
--- NOTE | 2023-12-13 10:04 | ED_ITS ---
HPI - General Adult 2 General: Chief complaint: General Medical Stated complaint: Pain post fall N/V Time Seen by Provider: 12/13/23 09:49 Source: patient Mode of arrival: EMS History of Present Illness: 33-year-old male presents to the emergen cy room mildly encephalopathic with bruising and a large swelling in his left upper chest wall. Patient states he has been falling and blacking out has significant chest pain. He also has pain radiating to his epigastric and right upper quadrant. He states he is fallen multiple times today and over the last few days. He denies hitting his head. Patient is chronic alcoholic he has been jaundiced in the past but not to the extent he is today. He was given 4 mg of Zofran in route. On arrival here he is hemodynamically unstable and mildly encephalopathic his initial blood pressures were 40 and 50 systolic and he is tachycardic in the 120s. Patient admits to having been drinking recently Onset (ago): day(s) Location: chest and abdomen Relieving factors: none Exacerbating factors: none Associated symptoms: Reports chest pain, confusion, decreased appetite, dyspnea, headache(s), malaise, nausea, syncope, vomiting and weakness; Deny cough, diaphoresis, fevers/chills, rash, palpitations, seizures, short of breath or other Treatments prior to arrival: none Review of Systems 2 Const: Reports: fatigue and malaise; Denies: diaphoresis Eyes: Reports: change in vision Card: Reports: chest pain, edema and syncope; Denies: palpitations Resp: Reports: dyspnea GI: Reports: abdominal pain, nausea and vomiting : Denies: dysuria, urinary frequency or urinary urgency Musc: Denies: neck pain or back pain Skin/Breast: Denies: rash Neuro: Reports: headache(s) and confusion PFSH ED 2 PFSH: Medical History Chronic hyponatremia Transaminitis Chronic nausea Gynecomastia, male Panic attack Acute on chronic pancreatitis Hyperlipidemia Anxiety and depression GERD (gastroesophageal reflux disease) Hypertension Acute posttraumatic stress disorder Surgical History No pertinent past surgical history Family History Father Hypertension Social History Smoking and tobacco/nicotine status: never used tobacco/nicotine Alcohol intake: current Alcohol intake frequency: 0-2 Drinks per Day Substance/Drug Use: never Marital status: Number of children: 5 Current occupational status: employed Current gender identity: Male Physical Exam 2 Const: GENERAL APPEARANCE: cooperative, comfortable and lethargic O RIENTATION/CONSCIOUSNESS: Yes oriented to person, Yes oriented to place, Yes oriented to time and Yes lethargic HENMT: COMMON NORMALS: normocephalic, atraumatic and hearing grossly normal bilaterally HEAD & SCALP: normocephalic and atraumatic Chest: OTHER: Markedly distorted left chest wall fluctuant to palpation no crepitus on auscultation significant bruising of the chest wall and upper arms bilaterally TKA noted as well Resp: COMMON NORMALS: normal respiratory effort, No retractions and No use of accessory muscles AUSCULTATION: diminished lung sounds Cardio: COMMON NORMALS: regular rhythm and No murmurs present (Cardio) R ATE: tachycardic RHYTHM: regular rhythm GI: AUSCULTATION: Yes Hypoactive bowel sounds present PALPATION: Yes Tenderness to palpation present (GI), No Guarding due to palpation present (GI) and Yes Hepatomegaly present Extremity: OTHER: No obvious deformities Neuro: SENSORIUM/ORIENTATION: Yes oriented to person, Yes oriented to place, Yes oriented to time and Yes lethargic Skin: OTHER: Significant scleral icterus and jaundice of the skin. Petechiae and bruising on the chest and upper extremities widely spread Procedures Central Line Placement Right IJ: Time Out Performed: Yes Patient Placed on Monitor/Pulse Ox: Yes MD Prep: mask, gown and gloves Central Line Prep: Chlorhexidine scrub Local Anesthetic: lidocaine 1% and with epi Amount of anesthesia used (mL): 5 Ultrasound Used for Placement: Yes Central Line Lumen Inserted: triple Post Procedure: sutured in place, good blood return, all ports aspirated, flushed, capped and sterile dressing applied Post Procedure X-Ray: tip of catheter in good position and no pneumothorax seen Patient Tolerated Procedure: well Complications: none Course 2 Vital Signs: Vital signs: Vital Signs Temperature 98.0 F 12/13/23 16:08 Pulse Rate 111 H 03/06/24 16:08 Respiratory Rate 17 12/13/23 16:08 Blood Pressure 125/77 12/13/23 16:08 Pulse Oximetry 99 12/13/23 16:08 [facility] - General Adult Medical Decision Making Patient in severe acute liver failure. He is also anemic with a massive hematoma posterior to the left pectoral muscle. He was severely hypotensive on arrival his initial blood pressures were 40 and 50 systolic. Central line was placed in the right IJ Levophed started he was also given 2 L of fluid and transfused a unit of blood. His INR is markedly elevated his albumin is low his liver functions are elevated and his T. bili is significantly elevated as well as blood alcohol is 255 his lactic acid is elevated but believe that is from alcohol and protein calorie malnutrition. Patient readily admits that most of his calories come from alcohol. Once patient was stabilized CT was done shows massive hepatomegaly and hematoma but no other acute findings there is no evidence of hemothorax or pneumothorax. He has stabilized and improved. Discussed with our hospitalist they believe would be more appropriate to transfer this patient to [facility] given his severe hepatic failure. We did contact [facility] they have agreed to take the patient in transfer but there are no beds available. His medical management here will be quite complicated discussed with the hospitalist will admit him to the ICU till a bed becomes available transfer center and the receiving physician assure us that the admission to our ICU does not change his status for transfer. Discussed with the patient that we have a receiving physician but were unsure of how long will be before they have an available bed they expressed understanding of this. Did start him on octreotide as well as Rocephin prophylactically after cultures. His second lactic acid is improved. He has not had known esophageal bleeds in the past but given his overall condition believe the octreotide is indicated. We have also ordered FFP and platelets. Reviewed case with hospitalist orders have been written Medical Records I reviewed the patient's medical records. Lab Data I reviewed the patient's lab results. 12/13/23 10:00 12/13/23 10:00 Laboratory Results WBC 7.39 10^3/uL (3.29-11.43) 12/13/23 10:00 RBC 1.96 10^6/uL (3.85-5.65) L 12/13/23 10:00 Hgb 7.10 g/dL (11.27-16.99) L 12/13/23 10:00 Hct 20.7 % (37-53) L* 12/13/23 10:00 MCV 105.6 fl (82-101) H 12/13/23 10:00 MCH 36.2 pg (27-33) H 12/13/23 10:00 MCHC 34.3 g/dL (30-55) 12/13/23 10:00 RDW 15.4 % (12.1-15.1) H 12/13/23 10:00 Plt Count 126 10^3/cmm (157-399) L 12/13/23 10:00 MPV 10.5 fL (7.4-10.4) H 12/13/23 10:00 Neut % (Auto) 84.8 % 12/13/23 10:00 Lymph % (Auto) 7.8 % 12/13/23 10:00 [place] % (Auto) 6.4 % 12/13/23 10:00 Eos % (Auto) 0.0 % 12/13/23 10:00 Baso % (Auto) 0.3 % 12/13/23 10:00 Neut # (Auto) 6.27 10^3/uL (1.8-7.7) 12/13/23 10:00 Lymph # (Auto) 0.6 10^3/uL (0.8-4.8) L 12/13/23 10:00 [place] # (Auto) 0.5 10^3/uL (0.2-0.9) 12/13/23 10:00 Eos # (Auto) 0.0 10^3/uL (0.0-0.8) 12/13/23 10:00 Baso # (Auto) 0.0 10^3/uL (0.0-0.1) 12/13/23 10:00 Nucleated RBC % (auto) 0 % 12/13/23 10:00 Nucleated RBCs # 0.0 /100WBC 12/13/23 10:00 PT 34.70 SECONDS (12.1-14.9) H 12/13/23 10:00 INR 3.29 (0.8-1.2) H 12/13/23 10:00 APTT 73.4 SECONDS (23.9-36.7) H 12/13/23 10:00 Specimen Type Arterial 12/13/23 10:10 Sample Site Radial, left 12/13/23 10:10 ABG pH 7.41 (7.35-7.45) 12/13/23 10:10 ABG pCO2 25.9 mmHg (35-45) L 12/13/23 10:10 ABG pO2 105.0 mmHg (80.0-100.0) H 12/13/23 10:10 ABG PO2/FiO2 Ratio 0 12/13/23 10:10 ABG HCO3 16.5 mmol/L (22-26) L 12/13/23 10:10 ABG O2 Saturation 98.4 12/13/23 10:10 ABG Base Excess -7.1 mmol/L (-2.0-2.0) L 12/13/23 10:10 Ricardo Test Pos 12/13/23 10:10 A-a O2 Gradient 1.4 mmHg (5-10) L 12/13/23 10:10 Hematocrit 24.9 % (42-52) L 12/13/23 10:10 Hgb O2 Saturation 96.8 % (95-100) 12/13/23 10:10 Carboxyhemoglobin 1.3 %THgb (0.4-20.1) 12/13/23 10:10 Methemoglobin 0.3 % (0.4-1.5) L 12/13/23 10:10 Total Hemoglobin 8.1 g/dL (14-18) L 12/13/23 10:10 Sodium 128.0 mmol/L (131-143) L 12/13/23 10:10 Potassium 3.9 mmol/L (3.5-5.0) 12/13/23 10:10 Glucose 100.0 mg/dL (70-115) 12/13/23 10:10 Ionized Calcium 1.0 mmol/L (1.1-1.4) L 12/13/23 10:10 O2 Delivery Device Room air 12/13/23 10:10 FiO2 21.0 % 12/13/23 10:10 Population Geneticist ID glc 12/13/23 10:10 Sodium 125 mmol/L (136-145) L 12/13/23 10:00 Potassium 4.1 mmol/L (3.5-5.1) 12/13/23 10:00 Chloride 87 mmol/L (98-107) L 12/13/23 10:00 Carbon Dioxide 17 mmol/L (22-29) L 12/13/23 10:00 Anion Gap 25.1 (5-19) H 12/13/23 10:00 BUN 4 mg/dL (6-20) L 12/13/23 10:00 Creatinine 0.4 mg/dL (0.7-1.2) L 12/13/23 10:00 GFR Calculation 247.7 mL/min (90-130) H 12/13/23 10:00 Glucose 96 mg/dL (65-115) 12/13/23 10:00 POC Glucose 97 mg/dL (70-110) 12/13/23 10:12 Calculated Osmolality 257 mOsm/kg (285-295) L 12/13/23 10:00 Lactic Acid 9.8 mmol/L (0.5-2.2) H* 12/13/23 10:00 Lactic Acid (Sepsis) 8.7 mmol/L (0.5-2.2) H* 12/13/23 13:00 Calcium 7.1 mg/dL (8.5-10.5) L 12/13/23 10:00 Magnesium 1.4 mg/dL (1.7-2.3) L 12/13/23 10:00 Total Bilirubin 12.9 mg/dL (0.15-1.2) H* 12/13/23 10:00 AST 314 U/L (0-40) H 12/13/23 10:00 ALT 59 U/L (0-41) H 12/13/23 10:00 Alkaline Phosphatase 255 U/L (40-130) H 12/13/23 10:00 Ammonia 31 umol/L (16-60) 12/13/23 10:00 Total Protein 4.7 g/dL (6.6-8.7) L 12/13/23 10:00 Albumin 2.4 g/dL (3.5-5.2) L 12/13/23 10:00 Globulin 2.3 g/dL (1.3-4.6) 12/13/23 10:00 Lipase 23 U/L (13-60) 12/13/23 10:00 Ethyl Alcohol 255 mg/dL (0-10) H 12/13/23 10:00 Blood Type O Positive 12/13/23 10:38 Rho(D) Type Rh positive 12/13/23 10:38 Antibody Screen Negative 12/13/23 10:38 Crossmatch See Detail 12/13/23 10:38 All radiology interpretation(s) finalized by discharge Critical Care Time 2 Critical Care Time: Critical Care Time: Yes Total Critical Care Time: 45 Attestation: The high probability of a clinically significant, sudden or life threatening deterioration of the patient's cardiovascular hematologic hepatic system(s) required my full and direct attention, intervention and personal management. The critical care time is as shown. This time is in addition to time spent performing any reported procedures but includes the following: [x] Data and vital sign review and interpretation [x] Patient assessment, examination and intervention [x] Documentation [x] Medication orders and management Discharge Plan Discharge Patient Disposition: Admitted As Inpatient Admit Provider: Nicole Flowers Clinical Impression: Acute hepatic failure, Thrombocytopenia, Alcoholism, Alcoholic gastritis, Alcohol intoxication, Chest wall hematoma, Acute hypotension, Acute blood loss anemia Condition: Stable Coding Level of Care Code ED Research Librarian for Al Duran
[2023-12-13 10:08] LABS: Basophils % 0.3 %; Lymphocytes # 0.6 10^3/uL (0.8-4.8); Lymphocytes % 7.8 %; Mean Corpuscular HGB Conc 34.3 g/dL (30-55); Mean Corpuscular Hemoglobin 36.2 pg (27-33); Mean Corpuscular Volume 105.6 fl (82-101); Mean Platelet Volume 10.5 fL (7.4-10.4); Monocytes # 0.5 10^3/uL (0.2-0.9); Monocytes % 6.4 %; Neutrophils # 6.27 10^3/uL (1.8-7.7); Neutrophils % 84.8 %; Nucleated Red Blood Cells % 0 %; Platelet Count 126 10^3/cmm (157-399); Red Blood Count 1.96 10^6/uL (3.85-5.65); Red Cell Distribution Width 15.4 % (12.1-15.1); White Blood Count 7.39 10^3/uL (3.29-11.43)
[2023-12-13] MEDS: norepinephrine 4 MG/250 ML BAG 30 MG IV ×2 (10:12→22:40)
--- NOTE | 2023-12-13 10:12 | PC.NURSE ---
blood glucose 96 via fingerstick
[2023-12-13] MEDS: sodium chloride 0.9% 1,000 ML 999 ML IV ×2 (10:13→12:30)
[2023-12-13 10:17] LABS: Hematocrit 20.7 % (37-53)
[2023-12-13 10:18] LABS: INR 3.29 (0.8-1.2)
[2023-12-13 10:19] LABS: ABG PCO2 25.9 mmHg (35-45); ABG PH Result 7.41 (7.35-7.45); Alveolar-Arterial Oxygen Gradi 1.4 mmHg (5-10); Arterial Blood Gas Hematocrit 24.9 % (42-52); Base Excess ABG -7.1 mmol/L (-2.0-2.0); Blood Gas Allen Test Pos; Blood Gas Operator Identificat glc; Blood Gas Sample Site Radial, left; Blood Gas Sample Type Arterial; Carboxyhemoglobin 1.3 %THgb (0.4-20.1); HCO3 ABG 16.5 mmol/L (22-26); HGB O2 Sat 96.8 % (95-100); Methemoglobin 0.3 % (0.4-1.5); Oxygen Device ROOM AIR; Oxygen Saturation ABG 98.4; PO2 FiO2 Ratio Arterial Blood 0; Potassium Level - ABG 3.9 mmol/L (3.5-5.0); Total Hemoglobin 8.1 g/dL (14-18)
[2023-12-13 10:23] LABS: Alanine Aminotransferase 59 U/L (0-41); Albumin Level 2.4 g/dL (3.5-5.2); Alcohol Level 255 mg/dL (0-10); Alkaline Phosphatase 255 U/L (40-130); Anion Gap 25.1 (5-19); Aspartate Amino Transferase 314 U/L (0-40); Blood Urea Nitrogen 4 mg/dL (6-20); Calcium 7.1 mg/dL (8.5-10.5); Carbon Dioxide 17 mmol/L (22-29); Chloride 87 mmol/L (98-107); Globulin 2.3 g/dL (1.3-4.6); Glomerular Filtration Rate 247.7 mL/min (90-130); Glucose 96 mg/dL (65-115); Lipase 23 U/L (13-60); Magnesium 1.4 mg/dL (1.7-2.3); Osmolality Calculated 257 mOsm/kg (285-295); Potassium 4.1 mmol/L (3.5-5.1); Sodium 125 mmol/L (136-145); Total Protein 4.7 g/dL (6.6-8.7)
--- NOTE | 2023-12-13 10:23 | PC.NURSE ---
pt hypotensive, manual b/p 60/40. Dr. Diaz notified. pt placed in trendelenburg
[2023-12-13 10:25] LABS: Partial Thromboplastin Time 73.4 SECONDS (23.9-36.7)
[2023-12-13 10:25] LABS: Glucose Point of Care 97 mg/dL (70-110)
[2023-12-13 10:26] LABS: Ammonia 31 umol/L (16-60)
[2023-12-13 10:28] LABS: Total Bilirubin 12.9 mg/dL (0.15-1.2)
[2023-12-13 10:29] LABS: Lactic Sepsis W/Reflex 9.8 mmol/L (0.5-2.2)
--- NOTE | 2023-12-13 10:35 | XR_ITS ---
WS: [id number] Portable AP supine chest, 12/13/2023, 1042 hours Clinical Data: central line placement Comparison: Portable chest, 12/13/2023, 0958 hours Findings: A right internal jugular venous catheter ends at the superior vena caval atrial junction. N o pneumothorax is seen. Impression: Satisfactory placement of right internal jugular venous catheter.
[2023-12-13] MEDS: cefTRIAXone 2,000 MG in sodium chloride 0.9% (plus) 50 ML 100 MG IV (10:52)
--- NOTE | 2023-12-13 10:57 | PC.PHAR ---
PTS VERIFIED PTS MEDICATIONS-PTS STATES THE PT HASNT FINISHED TAKING THE NALTREXONE 50MG DAILY FILLED ON 11/30/23 14D/S PTS STATES THE PT FINISHED THE CHLORDIAZEPOXIDE 25MG Q8H A WHILE AGO EXT SHOWS LAST FILLED 11/30/23 5D/S-PTS STATES THE PT IS NOT TAKING THE LACTULOSE 10G/15ML 10GM TID EXT SHOWS LAST FILLED 11/30/23 30D/S-PTS STATES THE PT IS ONLY TAKING THE MEDICATIONS ENTERED
[2023-12-13] MEDS: iohexol 350 mg/mL 500 mL Btl (per mL) IV (11:50)
[2023-12-13 11:53] LABS: Reflex Lactate Order REFLEX LACTIC ORDERD
[2023-12-13] MEDS: fentaNYL 50 mcg/mL INJ 2mL 25 MCG IVP ×2 (12:53→15:34)
[2023-12-13] MEDS: octreotide 500 MCG in sodium chloride 0.9% (100 ml) 100 ML 10.0999999999999996 MCG IV ×2 (13:17→22:12)
--- NOTE | 2023-12-13 13:30 | P.HP_ITS ---
Providers/Chief Complaint 2 Primary Care Provider: Antonio Alvarado MD Chief Complaint: Pain post fall N/V History of Present Illness Buddy Cowan is a 33 year old male with history of alcoholic cirrhosis, recurrent falls, presented to hospital for worsening of chest swelling. Patient is stating that he has never been referred to a manager learning despite diagnosis of liver cirrhosis quite some years ago, patient stating that he is extreme lethargic and fatigued, has tendency to fall again and again stating that he has a sleep staircase in his house, he started noticing swelling of left side of his chest on Monday which has gotten worse today to the point size of a big football, he was diagnosed with large hematoma subpectoral with hepatomegaly diffuse fatty infiltration, gastritis duodenitis patient stating that he is still drinking alcohol last drink was [address] scan there are numerous lytic lesion within the bony pelvis no previous history of cancer, patient stating that he is going through a lot of stress in his life and is not sure how to take care of himself. He has requested transfer to [facility] when we offered him help at tertiary level of care For now we will give him a unit of blood, FFP, 2 units of platelets Total bilirubin is 12.9, MELD score 33 Hypovolemic shock requiring Levophed Review of Systems 2 Const: Reports: chills, body aches and malaise; Denies: fever(s) Eyes: Denies: change in vision ENMT: Denies: throat pain Card: Denies: chest pain Resp: Denies: dyspnea GI: Reports: nausea : Denies: flank pain Musc: Reports: back pain; Denies: neck pain Skin/Breast: Reports: skin swelling Medications/Allergies Home Medications Medication Instructions Recorded Confirmed Last Taken Type clonidine HCl 0.1 mg tablet 0.1 mg PO BID PRN Blood Pressure 09/05/23 12/13/23 Unknown Rx #60 tabs omeprazole 40 mg capsule,delayed 40 mg PO DAILY #90 caps 10/03/23 12/13/23 11/05/23 Rx release lisinopril 40 mg tablet 40 mg PO DAILY 11/05/23 12/13/23 11/05/23 History naltrexone 50 mg tablet 50 mg PO DAILY #14 tabs 11/29/23 12/13/23 Unknown Rx Allergies Allergy/AdvReac Type Severity Reaction Status Date / Time aspirin Allergy Unknown ADR-Gastrointestinal Verified 11/29/23 17:56 Upset NSAIDS (Non-Steroidal Allergy Unknown Unknown Verified 11/29/23 17:56 Anti-Inflamma acetaminophen [From Tylenol] Allergy ADR-Gastrointestinal Verified 11/29/23 17:56 Upset naproxen [From Aleve] Allergy Unknown Verified 11/29/23 17:56 zolpidem [From Ambien] Allergy ADR-Nightma Verified 11/29/23 17:56 re buspirone AdvReac Intermediate ADR-Anxiety Verified 11/29/23 17:56 PFSH Acute 2 PFSH: Medical History Chronic hyponatremia Transaminitis Chronic nausea Gynecomastia, male Panic attack Acute on chronic pancreatitis Hyperlipidemia Anxiety and depression GERD (gastroesophageal reflux disease) Hypertension Acute posttraumatic stress disorder Surgical History No pertinent past surgical history Family History Father Hypertension Social History Smoking and tobacco/nicotine status: never used tobacco/nicotine Alcohol intake: current Alcohol intake frequency: 0-2 Drinks per Day Substance/Drug Use: never Marital status: Number of children: 5 Current occupational status: employed Current gender identity: Male Vitals/I&O/Wt Last Vital Signs Temp 98.0 F 12/13/23 13:17 Pulse 103 H 12/13/23 13:17 Resp 18 12/13/23 13:17 BP 106/63 12/13/23 13:17 Pulse Ox 98 12/13/23 13:17 12/12/23 12/13/23 12/13/23 22:59 06:59 14:59 Intake Total 1153 / 1153 Balance 1153 / 1153 Weight last 48 hrs Weight 87.09 kg Physical Exam 2 Narrative: Scleral icterus No active asterixis Pleasant and calm Nonfocal neuroexam Abdomen soft Massive hematoma left chest tender to touch Petechial hemorrhage all over his body S1, S2 Hypertensive Currently on vasopressors Tachycardic Afebrile On room air Urinary Catheter Management: Orozco: Cath Placed During This Visit: yes Urinary Catheter Date of Insertion: 12/13/23 Urinary Catheter Time of Insertion: 12:23 Data 12/13/23 10:00 12/13/23 10:00 Micro: Microbiology 12/13/23 10:30 Blood Culture - Preliminary Blood SPECIMEN COLLECTED 12/13/23 10:27 Blood Culture - Preliminary Blood SPECIMEN COLLECTED A&P Assessment and plan (1) Anxiety and depression: (2) Alcoholism: (3) Alcohol intoxication: (4) Acute hypotension: (5) Thrombocytopenia: (6) Alcoholic gastritis: (7) Acute hepatic failure: (8) Acute blood loss anemia: (9) Chest wall hematoma: (10) Jaundice: (11) Hypovolemic shock: Plan Large subpectoral hematoma This is a life-threatening bleed I will give him 2 unit platelets, 1 FFP 1 unit RBC Patient is in hemorrhagic shock Currently on octreotide and Levophed Admit to ICU Alcoholic liver cirrhosis I will start him on high-dose steroids No signs of cholangitis Will put him on broad-spectrum antibiotics Patient is already excepted at [facility] awaiting bed placement Active alcohol consumption Ammonia level normal No kidney function abnormality Start CIWA protocol Alcohol intoxication Patient has had history of DTs High lactic acid related to hypovolemic/hemorrhagic shock High risk of mortality morbidity MELD score 33 acute liver failure Secondary to active alcohol consumption Full code Regular diet Attestations 2 Medical Necessity Statement*: Admit to ICU more anticipating more than 2 midnights awaiting transfer to [facility] Coding Level of Care Code Critical Care >/= 30 minutes Critical care time (in minutes): 30 The high probability of a clinically significant, sudden or life threatening deterioration, as referenced in this documentation, required my full and direct attention, intervention and personal management. The critical care time shown is in addition to time spent performing any reported separately billable procedures and includes the following: [x] Data and vital sign review and interpretation [x ] Patient assessment, examination and intervention [x] Medication orders and management [x] Patient/Family updates as able [x] Care Coordination and Documentation. Diagnoses Anxiety and depression F41.9; F32.A Alcoholism F10.20 Alcohol intoxication F10.929 Acute hypotension I95.9 Thrombocytopenia D69.6 Alcoholic gastritis K29.20 Acute hepatic failure K72.00 Acute blood loss anemia D62 Chest wall hematoma S20.219A Jaundice R17 Hypovolemic shock R57.1
[2023-12-13 13:48] LABS: Lactic Acid level (Lactate) 8.7 mmol/L (0.5-2.2)
[2023-12-13] MEDS: ondansetron 2 mg/ML SDV 2 mL 4 MG IVP ×3 (15:35→23:53)
[2023-12-13] MEDS: norepinephrine 4 MG/250 ML BAG 45 MG IV (16:10)
[2023-12-13] MEDS: pantoprazole 40 mg SDV IVP (17:53)
[2023-12-13] MEDS: methylPREDNISolone sod succ 125 mg/2 mL INJ 80 MG IVP (17:53)
[2023-12-13] MEDS: piperacillin-tazobactam 3.375 GM in sodium chloride 0.9% (plus) 50 ML IV (17:54)
--- NOTE | 2023-12-13 18:06 | PC.NURSE ---
@[id number] this nurse changed central line dressing, cleaned with chlorhexidine
[2023-12-13] MEDS: oxyCODONE 5 mg IR Tab/Cap PO ×2 (18:31→22:39)
--- NOTE | 2023-12-13 18:51 | PC.NURSE ---
report called to Angel in ICU, no further questions at end of report.
[2023-12-13] MEDS: LORazepam 2 mg/mL INJ 10 mL MDV IVP (22:18)
[2023-12-13 23:26] LABS: Basophils % 0.1 %; Lymphocytes # 0.2 10^3/uL (0.8-4.8); Lymphocytes % 1.9 %; Mean Corpuscular HGB Conc 35.1 g/dL (30-55); Mean Corpuscular Hemoglobin 34.4 pg (27-33); Mean Corpuscular Volume 97.9 fl (82-101); Mean Platelet Volume 9.9 fL (7.4-10.4); Monocytes # 0.3 10^3/uL (0.2-0.9); Monocytes % 3.1 %; Neutrophils # 8.89 10^3/uL (1.8-7.7); Neutrophils % 94.1 %; Nucleated Red Blood Cells % 0 %; Platelet Count 187 10^3/cmm (157-399); Red Blood Count 1.92 10^6/uL (3.85-5.65); Red Cell Distribution Width 22.4 % (12.1-15.1); White Blood Count 9.45 10^3/uL (3.29-11.43)
[2023-12-13 23:41] LABS: Hematocrit 18.8 % (37-53)
[2023-12-14] VITALS (97 sets, daily range): BP systolic 93–124; BP diastolic 58–81; PULSE 99–135; RESP 9–27; TEMP 36.7–37.6; O2SAT 24–99
[2023-12-14] MEDS: sodium chloride 0.9% 100 mL Bag 50 ML IV (00:50)
--- NOTE | 2023-12-14 01:48 | PC.NURSE ---
Patient arrived from ED via stretcher. Patient complaining 10/10 left lateral chest pain with large external left sided hematoma present. Hospitalist notified for orders for CIWA, pain medications, and repeat CBC. Order for RBC transfusion received per decreased Hgb on repeat labs. Patient complained of mild itching and 1.1 degree F rise in temp 30min after start of transfusion. Order for Benadryl received. Tylenol order received, refused by patient and contraindicated per Allergy. Patient's chest marked and measured for assessment.
[2023-12-14] MEDS: piperacillin-tazobactam 3.375 GM in sodium chloride 0.9% (plus) 50 ML IV ×3 (02:02→18:42)
[2023-12-14] MEDS: diphenhydrAMINE 50 mg/mL SDV 1mL 25 MG IVP (02:03)
[2023-12-14] MEDS: oxyCODONE 5 mg IR Tab/Cap PO ×3 (02:42→13:41)
[2023-12-14] MEDS: LORazepam 2 mg/mL INJ 10 mL MDV IVP ×2 (03:18→08:06)
[2023-12-14] MEDS: methylPREDNISolone sod succ 125 mg/2 mL INJ 80 MG IVP ×2 (04:51→18:41)
[2023-12-14 05:10] LABS: Reflex FDPQ test REFLEX FDP QUEST TES
[2023-12-14 05:19] LABS: Hematocrit 21.4 % (37-53); Lymphocytes # 0.4 10^3/uL (0.8-4.8); Lymphocytes % 4.1 %; Mean Corpuscular HGB Conc 33.6 g/dL (30-55); Mean Corpuscular Hemoglobin 33.2 pg (27-33); Mean Corpuscular Volume 98.6 fl (82-101); Mean Platelet Volume 10.4 fL (7.4-10.4); Monocytes # 0.7 10^3/uL (0.2-0.9); Monocytes % 7.6 %; Neutrophils # 7.74 10^3/uL (1.8-7.7); Neutrophils % 87.6 %; Nucleated Red Blood Cells % 0 %; Platelet Count 155 10^3/cmm (157-399); Red Blood Count 2.17 10^6/uL (3.85-5.65); Red Cell Distribution Width 21.9 % (12.1-15.1); White Blood Count 8.83 10^3/uL (3.29-11.43)
[2023-12-14 05:23] LABS: INR 3.21 (0.8-1.2)
[2023-12-14 05:24] LABS: Partial Thromboplastin Time 59.3 SECONDS (23.9-36.7)
[2023-12-14 05:28] LABS: Fibrinogen 261 mg/dL (174-498)
[2023-12-14 05:32] LABS: D Dimer 2.35 ug/mLFEU (0-0.59)
[2023-12-14 05:57] LABS: Alanine Aminotransferase 66 U/L (0-41); Albumin Level 2.5 g/dL (3.5-5.2); Alkaline Phosphatase 227 U/L (40-130); Anion Gap 27.2 (5-19); Aspartate Amino Transferase 323 U/L (0-40); Blood Urea Nitrogen 4 mg/dL (6-20); C Reactive Protein 37.1 mg/L (0.0-4.9); Carbon Dioxide 16 mmol/L (22-29); Chloride 88 mmol/L (98-107); Globulin 2.2 g/dL (1.3-4.6); Glomerular Filtration Rate 191.5 mL/min (90-130); Glucose 140 mg/dL (65-115); Magnesium 1.4 mg/dL (1.7-2.3); Osmolality Calculated 263 mOsm/kg (285-295); Phosphorus 2.3 mg/dL (2.5-4.5); Potassium 4.2 mmol/L (3.5-5.1); Sodium 127 mmol/L (136-145); Total Protein 4.7 g/dL (6.6-8.7)
[2023-12-14 06:42] LABS: Total Bilirubin 14.3 mg/dL (0.15-1.2)
[2023-12-14] MEDS: ondansetron 2 mg/ML SDV 2 mL 4 MG IVP (08:13)
[2023-12-14] MEDS: multivitamin therapeutic Tablet 1 TAB PO (09:05)
[2023-12-14] MEDS: pantoprazole 40 mg SDV IVP ×2 (09:05→18:41)
[2023-12-14] MEDS: thiamine 100 mg Tablet PO (09:05)
[2023-12-14] MEDS: folic acid 1 mg Tablet PO (09:05)
[2023-12-14] MEDS: octreotide 500 MCG in sodium chloride 0.9% (100 ml) 100 ML 10 MCG IV ×2 (09:49→21:13)
--- NOTE | 2023-12-14 11:01 | P.PN_ITS ---
Subjective 2 Subjective: Patient is not able to sleep well Still complaining of pain all over his body No severe signs of withdrawal Still coagulopathic Will give him vitamin K another unit of FFP Status post 1 unit PRBC 2 units of platelets and 1 bag of FFP Hemoglobin still around 7 Off Levophed which was turned off this morning I have continued octreotide Vitals/I&O/Wt Last Vital Signs Temp 98.4 F 12/14/23 10:07 Pulse 112 H 12/14/23 10:07 Resp 25 H 12/14/23 10:07 BP 112/69 12/14/23 10:07 Pulse Ox 95 12/14/23 10:07 O2 Del Method Room Air 12/14/23 08:13 12/13/23 12/14/23 12/14/23 22:59 06:59 14:59 Intake Total 3023.558 / 4176.558 361 / 4537.558 341 / 341 Output Total 1000 / 1000 550 / 1550 Balance 2023.558 / 3176.558 -189 / 2987.558 341 / 341 Weight last 48 hrs Weight 90.718 kg Weight 90.718 kg Weight 87.09 kg Physical Exam 2 Narrative: Patient in supine No severe signs of withdrawal Scleral icterus GCS 15 No asterixis Pleasant cooperative Nonfocal neuroexam Drowsy and lethargic Currently on room air Hemodynamically stable off Levophed Orozco catheter in place Urinary Catheter Management: Orozco: Cath Placed During This Visit: yes Reason for Continuing Indwelling Catheter: Accurate Measurement of Urinary Output in Critically Ill Patients Urinary Catheter Date of Insertion: 12/13/23 Urinary Catheter Time of Insertion: 12:23 Data 12/14/23 04:01 12/14/23 04:01 Micro: Microbiology 12/13/23 10:27 Blood Culture - Preliminary Blood NEGATIVE TO DATE 12/13/23 10:30 Blood Culture - Preliminary Blood NEGATIVE TO DATE A&P Assessment and plan (1) Anxiety and depression: (2) Alcoholism: (3) Alcohol intoxication: (4) Acute hypotension: (5) Hypovolemic shock: (6) Thrombocytopenia: (7) Alcoholic gastritis: (8) Jaundice: (9) Acute hepatic failure: (10) Acute blood loss anemia: (11) Chest wall hematoma: Plan Large subpectoral hematoma 3/6status post 1 unit PRBC 1 FFP and 2 platelets Hemoglobin is still low 12/13 I will give him another unit of blood today along with vitamin K and FFP Awaiting bed at [facility] Patient does not want to be transferred at the other facility Concern for infection of underlying hematoma continue antibiotic Liver failure induced coagulopathy Giving FFP and vitamin K today Alcohol intoxication No severe signs of withdrawal Continue CIWA protocol Hypomagnesemia, hypophosphatemia: Will replete MELD score stays above 33 Acute blood loss anemia: In total by 12/13 he will get 2 units PRBC Full code Fluid restricted regular diet Alcoholic hepatitis continue high-dose steroids High risk for mortality morbidity Full code Will touch patient in [facility] did not have any beds available today Hypovolemic shock: Off Levophed continue octreotide Attestations 2 Medical Necessity Statement*: Continue ICU management Diagnoses Anxiety and depression F41.9; F32.A Alcoholism F10.20 Alcohol intoxication F10.929 Acute hypotension I95.9 Hypovolemic shock R57.1 Thrombocytopenia D69.6 Alcoholic gastritis K29.20 Jaundice R17 Acute hepatic failure K72.00 Acute blood loss anemia D62 Chest wall hematoma S20.219A
[2023-12-14] MEDS: phosphorus 250 mg Tablet PO ×2 (13:40→18:41)
[2023-12-14] MEDS: magnesium oxide 400 mg tablet PO ×2 (13:40→18:41)
[2023-12-14] MEDS: phytonadione (ADULT) 10 MG in sodium chloride 0.9% 50 ML 153 MG IV (13:41)
[2023-12-14 14:20] LABS: Lactic Sepsis W/Reflex 2.6 mmol/L (0.5-2.2)
--- NOTE | 2023-12-14 14:46 | PC.NURSE ---
Noticed pt's standing at the IV pumps from time to time and at this time noticed that she was taking pictures of the IV bags hanging.... It appeared to be suspicious type behavior. Will notify the dept director when available.
[2023-12-14] MEDS: sodium bicarbonate 150 MEQ in dextrose 5% 1,000 ML 50 MEQ IV (14:55)
[2023-12-14 15:45] LABS: Reflex Lactate Order REFLEX LACTIC ORDERD
--- NOTE | 2023-12-14 17:28 | PC.NURSE ---
Notified pt's (Tayler) that the pt has been accepted at [facility] in [place] to the neuro Trauma ICU and will be leaving as soon as report is called and the ambulance can take him. She stated understanding.
[2023-12-14 17:46] LABS: Lactic Acid level (Lactate) 2.2 mmol/L (0.5-2.2)
--- NOTE | 2023-12-14 18:03 | P.TS_ITS ---
Transfer Summary Providers Date of Admission: 12/13/23 15:18 Date of Discharge/Transfer: 12/14/23 Attending Provider at Admission: Nicole Flowers MD Attending Provider at Transfer: Nicole Flowers MD Primary Care Provider: Antonio Alvarado MD Transfer Plans: Anticipated date of transfer: 12/14/23 . Diagnoses at Discharge Discharge Diagnosis (1) Anxiety and depression: Status: Acute (2) Alcoholism: Status: Acute (3) Alcohol intoxication: Status: Acute (4) Acute hypotension: Status: Acute (5) Hypovolemic shock: Status: Acute (6) Thrombocytopenia: Status: Acute (7) Alcoholic gastritis: Status: Acute (8) Jaundice: Status: Acute (9) Acute hepatic failure: Status: Acute (10) Acute blood loss anemia: Status: Acute (11) Chest wall hematoma: Status: Acute Reason for Visit Reason for Visit Pain post fall N/V Hospital Course Hospital Course 33-year-old male who has a history of alcohol related liver cirrhosis, lytic lesion of bony pelvis, no previous diagnosis of malignancy, drinks alcohol on daily basis, has not seen any erp project manager in last 2 years, has had multiple admission in the past related to alcohol withdrawal, pancreatitis recurrent falls. This time presenting after noticing swelling of the left side of his chest wall. Patient is stating that he has been following at least 2-3 times daily basis, last fall was on Monday which was roughly 2 days before his arrival in the ER, in the ER he was diagnosed with significant large subpectoral hematoma 16 x 7 x 17 cm which was evident on CT scan it did not show any active bleed it as well as positive for diffuse gastritis duodenitis trace free fluid in the pelvis, stable indeterminant 2.3 cm heterogeneous enhancing lesion right hepatic lobe marked hepatomegaly with fatty infiltration. There were no signs of acute rib fractures. Old rib fractures showing calluses. In the ER patient had liver induced coagulopathy he was given 1 unit PRBC, 2 units of platelets and 1 FFP, he required central line placement and initiation of Levophed for hemorrhagic shock he was admitted to the ICU, on arrival his hemoglobin was 6.6, next day his hemoglobin improved up to 7.2 only, second unit of blood was ordered on 12/13 along 2 FFP and 1 extra bag of platelets, platelet count is 155,000, white count 8.8, INR 3.2, D-dimer 2.3, fibrinogen 261, PT 34 bilirubin is 14, lactic acid 2.2, sodium 127, ammonia level was 31, alcohol level on adm ission 255 mg/dL, patient did not show any signs of alcohol withdrawal during hospitalization, we do not have interventional radiology in case he would require any intervention, I have ordered CTA chest abdomen pelvis which has not been done, I spoke with [facility] plate glass installer helper Dr. Escudero, he has accepted the patient, hopefully his coagulopathy would improve by Monday so he could get intervention by the IR for drainage of hematoma. MELD score 33, patient has not shown abstinence from alcohol, he will need close follow-up with a erp project manager as well and longitudinal follow-up basis. Patient is off Levophed today, I have continued octreotide Head CT unremarkable No signs of bleed Patient has right IJ central line that was placed in the ER [place] [address] CT Scan Report Signed Patient: Buddy Cowan Unit #: [id number] : 1990 Age/Sex: 33 / M ADM Date: 12/13/23 Loc: ER Room/Bed: Attending Dr: Ordering Provider/Ordering MD: Igor Diaz DO Date of Service: 12/13/23 Procedure(s): CT chest abdpel w/*[id number] Accession Number(s): [id number] Report Number: [id number] WS: [id number] CT CHEST, ABDOMEN, AND PELVIS TECHNIQUE: Contrast-enhanced CT of the chest, abdomen, and pelvis with coronal and sagittal reformatted images. CLINICAL INFORMATION: trauma COMPARISON: Multiple prior CTs including April and July 2023 DLP: 1222.[address] scans at [facility] use at least one of these dose optimization techniques: automated exposure control; mA and/or kV adjustment per patient size (includes targeted exams where dose is matched to clinical indication); or iterative reconstruction. CT CHEST: Lungs are well aerated. No acute pulmonary infiltrates. No focal pneumonia or pleural fluid. Large subpectoral mixed attenuation hematoma with surrounding soft tissue induration extending to the LEFT chest wall and LEFT axilla. Hematoma measures approximately 15.9 x 7.1 x 17.7 cm. Chronic appearing LEFT rib fracture with callus formation. No acute appearing LEFT rib fractures. CT ABDOMEN AND PELVIS: Marked hepatomegaly diffuse fatty infiltration of the liver. 2.3 cm enhancing RIGHT hepatic mass nonspecific on this study. This can be followed up with triphasic liver CT or MRI. This is relatively stable compared to 08/06/2023. Portal vein and splenic vein are patent. Normal GE junction. Diffuse gastritis and duodenitis. Peripheral enhancing fluid distended gallbladder likely due to hepatic dysfunction. Normal pancreatic parenchymal enhancement. No hydronephrosis in either kidney. Celiac and SMA are patent. Adrenal glands are normal. Normal sigmoid colon. Orozco catheter. Small cystocele. Nonspecific numerous lytic lesions in the bony pelvis. This includes both iliac wings. Metastatic disease not excluded. This can be followed up with bone scan. IMPRESSION: 1. Lungs are well aerated. No pneumothorax or acute infiltrate. 2. Large subpectoral mixed attenuation hematoma overlying the LEFT chest wall described above. No visualized acute rib fractures. 3. Marked hepatomegaly with diffuse fatty infiltration. 4. Stable indeterminant 2.3 cm heterogeneously enhancing lesion in the RIGHT hepatic lobe. This can be further evaluated with triphasic liver CT or MRI. This is unchanged over multiple prior examinations. 5. Diffuse gastritis and duodenitis. 6. Orozco catheter in place. Small cystocele. 7. Trace free fluid in the pelvis. 8. Indeterminate numerous lytic lesions within the bony pelvis more prominent in the iliac wings. This is nonspecific but suspicious for metastatic disease. This has increased and become more apparent over the last several examinations. This could be further evaluated with bone scan. Notified Igor Diaz DO at 12/13/2023 12:34 PM Physical Exam Narrative: GCS 15 Nonfocal neuroexam Chest wall hematoma 17 x 7 x 17 cm Multiple petechiae and bruises all lower extremities Abdomen nontender Able to answer my question Fatigued and drowsy S1, S2 tachycardia Currently on room air Urinary Catheter Management: Orozco: Cath Placed During This Visit: yes Reason for Continuing Indwelling Catheter: Accurate Measurement of Urinary Output in Critically Ill Patients Urinary Catheter Date of Insertion: 12/13/23 Urinary Catheter Time of Insertion: 12:23 TS Data Studies Completed and Pending Pending at discharge Category Date Time Status CT chest abdpel w/*[id number] Urgent Cat Scan 12/14/23 11:56 Ordered Basic Metabolic Panel AM LABS Lab 12/15/23 04:00 Ordered Blood Culture Stat Lab 12/13/23 10:30 Results Complete Blood Count w/Auto AM LABS Lab 12/15/23 04:00 Ordered Fibrinogen Degradation Product Routine Lab 12/14/23 05:10 Received Prothrombin Time INR AM LABS Lab 12/15/23 04:00 Ordered Prothrombin Time INR AM LABS Lab 12/16/23 04:00 Ordered Prothrombin Time INR AM LABS Lab 12/17/23 04:00 Ordered Completed Studies During Hospitalization Category Date Time Status CT chest abdomen pelvis [CT chest abdpel w/*[id number] Cat Scan 12/13/23 10:00 Completed ] Stat CT head wo con* [id number] Stat Cat Scan 12/13/23 10:03 Completed XR cervical spine 3V* [id number] Stat Exams 12/13/23 09:51 Completed XR chest 1V portable [id number] Stat Exams 12/13/23 10:01 Completed XR chest 1V portable [id number] Stat Exams 12/13/23 10:35 Completed Laboratory Last Values WBC 8.83 10^3/uL (3.29-11.43) 12/14/23 04:01 RBC 2.17 10^6/uL (3.85-5.65) L 12/14/23 04:01 Hgb 7.20 g/dL (11.27-16.99) L 12/14/23 04:01 Hct 21.4 % (37-53) L 12/14/23 04:01 MCV 98.6 fl (82-101) 12/14/23 04:01 MCH 33.2 pg (27-33) H 12/14/23 04:01 MCHC 33.6 g/dL (30-55) 12/14/23 04:01 RDW 21.9 % (12.1-15.1) H 12/14/23 04:01 Plt Count 155 10^3/cmm (157-399) L 12/14/23 04:01 MPV 10.4 fL (7.4-10.4) 12/14/23 04:01 Neut % (Auto) 87.6 % 12/14/23 04:01 Lymph % (Auto) 4.1 % 12/14/23 04:01 [place] % (Auto) 7.6 % 12/14/23 04:01 Eos % (Auto) 0.0 % 12/14/23 04:01 Baso % (Auto) 0.0 % 12/14/23 04:01 Neut # (Auto) 7.74 10^3/uL (1.8-7.7) H 12/14/23 04:01 Lymph # (Auto) 0.4 10^3/uL (0.8-4.8) L 12/14/23 04:01 [place] # (Auto) 0.7 10^3/uL (0.2-0.9) 12/14/23 04:01 Eos # (Auto) 0.0 10^3/uL (0.0-0.8) 12/14/23 04:01 Baso # (Auto) 0.0 10^3/uL (0.0-0.1) 12/14/23 04:01 Nucleated RBC % (auto) 0 % 12/14/23 04:01 Nucleated RBCs # 0.0 /100WBC 12/14/23 04:01 PT 34.10 SECONDS (12.1-14.9) H 12/14/23 04:01 INR 3.21 (0.8-1.2) H 12/14/23 04:01 APTT 59.3 SECONDS (23.9-36.7) H 12/14/23 04:01 Fibrinogen 261 mg/dL (174-498) 12/14/23 04:01 D-Dimer 2.35 ug/mLFEU (0-0.59) H 12/14/23 04:01 Specimen Type Arterial 12/13/23 10:10 Sample Site Radial, left 12/13/23 10:10 ABG pH 7.41 (7.35-7.45) 12/13/23 10:10 ABG pCO2 25.9 mmHg (35-45) L 12/13/23 10:10 ABG pO2 105.0 mmHg (80.0-100.0) H 12/13/23 10:10 ABG PO2/FiO2 Ratio 0 12/13/23 10:10 ABG HCO3 16.5 mmol/L (22-26) L 12/13/23 10:10 ABG O2 Saturation 98.4 12/13/23 10:10 ABG Base Excess -7.1 mmol/L (-2.0-2.0) L 12/13/23 10:10 Ricardo Test Pos 12/13/23 10:10 A-a O2 Gradient 1.4 mmHg (5-10) L 12/13/23 10:10 Hematocrit 24.9 % (42-52) L 12/13/23 10:10 Hgb O2 Saturation 96.8 % (95-100) 12/13/23 10:10 Carboxyhemoglobin 1.3 %THgb (0.4-20.1) 12/13/23 10:10 Methemoglobin 0.3 % (0.4-1.5) L 12/13/23 10:10 Total Hemoglobin 8.1 g/dL (14-18) L 12/13/23 10:10 Sodium 128.0 mmol/L (131-143) L 12/13/23 10:10 Potassium 3.9 mmol/L (3.5-5.0) 12/13/23 10:10 Glucose 100.0 mg/dL (70-115) 12/13/23 10:10 Ionized Calcium 1.0 mmol/L (1.1-1.4) L 12/13/23 10:10 O2 Delivery Device Room air 12/13/23 10:10 FiO2 21.0 % 12/13/23 10:10 Semiautomatic Stitcher Operator ID glc 12/13/23 10:10 Sodium 127 mmol/L (136-145) L 12/14/23 04:01 Potassium 4.2 mmol/L (3.5-5.1) 12/14/23 04:01 Chloride 88 mmol/L (98-107) L 12/14/23 04:01 Carbon Dioxide 16 mmol/L (22-29) L 12/14/23 04:01 Anion Gap 27.2 (5-19) H 12/14/23 04:01 BUN 4 mg/dL (6-20) L 12/14/23 04:01 Creatinine 0.5 mg/dL (0.7-1.2) L 12/14/23 04:01 GFR Calculation 191.5 mL/min (90-130) H 12/14/23 04:01 Glucose 140 mg/dL (65-115) H 12/14/23 04:01 POC Glucose 97 mg/dL (70-110) 12/13/23 10:12 Calculated Osmolality 263 mOsm/kg (285-295) L 12/14/23 04:01 Lactic Acid 2.6 mmol/L (0.5-2.2) H 12/14/23 13:37 Lactic Acid (Sepsis) 2.2 mmol/L (0.5-2.2) 12/14/23 16:37 Calcium 7.0 mg/dL (8.5-10.5) L 12/14/23 04:01 Phosphorus 2.3 mg/dL (2.5-4.5) L 12/14/23 04:01 Magnesium 1.4 mg/dL (1.7-2.3) L 12/14/23 04:01 Total Bilirubin 14.3 mg/dL (0.15-1.2) H* 12/14/23 04:01 AST 323 U/L (0-40) H 12/14/23 04:01 ALT 66 U/L (0-41) H 12/14/23 04:01 Alkaline Phosphatase 227 U/L (40-130) H 12/14/23 04:01 Ammonia 31 umol/L (16-60) 12/13/23 10:00 C-Reactive Protein 37.1 mg/L (0.0-4.9) H 12/14/23 04:01 Total Protein 4.7 g/dL (6.6-8.7) L 12/14/23 04:01 Albumin 2.5 g/dL (3.5-5.2) L 12/14/23 04:01 Globulin 2.2 g/dL (1.3-4.6) 12/14/23 04:01 Lipase 23 U/L (13-60) 12/13/23 10:00 Ethyl Alcohol 255 mg/dL (0-10) H 12/13/23 10:00 Blood Type O Positive 12/13/23 10:38 Rho(D) Type Rh positive 12/13/23 10:38 Antibody Screen Negative 12/13/23 10:38 Crossmatch See Detail 12/13/23 10:38 Recent Clincial Data Last Vital Signs Temp 98.3 F 12/14/23 14:53 Pulse 105 H 12/14/23 17:15 Resp 12 12/14/23 17:15 BP 110/71 12/14/23 17:15 Pulse Ox 82 L 12/14/23 11:30 O2 Del Method Room Air 12/14/23 08:13 Vital Signs Temp Pulse Resp BP Pulse Ox O2 Del Method 12/14/23 17:15 105 H 12 110/71 12/14/23 17:00 105 H 12 117/77 12/14/23 16:45 106 H 11 L 111/81 12/14/23 16:30 106 H 14 97/63 12/14/23 16:15 105 H 12 111/61 12/14/23 16:00 104 H 13 99/58 12/14/23 15:45 105 H 13 112/58 12/14/23 15:30 107 H 12 113/65 12/14/23 15:15 108 H 15 103/59 12/14/23 15:00 105 H 14 103/60 12/14/23 14:53 98.3 F 108 H 15 103/60 12/14/23 14:45 107 H 15 95/64 12/14/23 14:34 98.0 F 109 H 13 95/64 12/14/23 14:30 112 H 12 111/66 12/14/23 14:15 109 H 14 111/64 12/14/23 14:00 110 H 15 112/70 12/14/23 14:00 108 H 12/14/23 13:45 127 H 23 H 110/75 12/14/23 13:41 21 H 12/14/23 13:30 135 H 19 H 115/73 12/14/23 13:15 102 H 14 113/73 12/14/23 13:00 99 12 118/71 12/14/23 12:55 101 H 14 118/71 12/14/23 12:50 104 H 13 118/71 12/14/23 12:45 102 H 14 115/65 12/14/23 12:40 105 H 13 115/65 12/14/23 12:35 106 H 14 115/65 12/14/23 12:30 107 H 13 111/66 12/14/23 12:25 102 H 14 111/66 12/14/23 12:20 104 H 14 111/66 12/14/23 12:15 104 H 13 110/73 12/14/23 12:10 103 H 16 110/73 12/14/23 12:05 106 H 13 110/73 03/07/24 12:00 98.2 F 107 H 15 112/64 03/0724 11:55 102 H 12 112/64 03/07 11:50 108 H 22 H 112/64 12/14/23 11:45 104 H 13 106/66 24 11:40 102 H 15 106/66 12/14/23 11:35 101 H 13 106/66 /24 11:30 111 H 16 117/67 82 L 07 11:25 106 H 14 117/67 12/14/23 11:20 106 H 13 117/67 12/14/23 11:15 105 H 14 93/66 /05/01 11:10 108 H 21 H 93/66 12/14/23 11:05 117 H 16 93/66 12/14/23 11:00 109 H 13 96/58 12/14/23 10:55 109 H 14 96/58 12/14/23 10:50 108 H 14 96/58 87 L 12/14/23 10:45 112 H 14 103/62 93 07 10:40 112 H 13 103/62 92 07 10:35 111 H 15 103/62 93 /0724 10:30 116 H 15 112/69 03/07 10:25 111 H 18 112/69 93 07 10:20 113 H 17 112/69 93 12/14/23 10:15 120 H 23 H 106/60 95 /0724 10:10 118 H 18 106/60 95 /07 10:07 98.4 F 112 H 25 H 112/69 95 /07 10:05 113 H 15 106/60 95 0724 10:01 98.6 F 113 H 15 106/60 95 03/0724 10:00 114 H 16 106/67 94 03/0724 09:56 98.6 F 107 H 16 106/67 96 12/14/23 09:55 112 H 12 106/67 96 24 09:50 107 H 16 106/67 96 0724 09:45 108 H 15 106/67 95 /0724 09:40 113 H 16 106/67 95 0724 09:35 115 H 16 106/67 96 12/14/23 09:30 113 H 15 102/64 96 12/14/23 09:25 114 H 20 H 102/64 97 12/14/23 09:20 117 H 16 102/64 95 12/14/23 09:15 117 H 18 106/63 95 12/14/23 09:12 117 H 19 H 106/63 96 12/14/23 08:13 123 H 18 95 Room Air 12/14/23 08:06 21 H Intake & Output/Weight 12/12/23 12/13/23 12/14/23 12/15/23 06:59 06:59 06:59 06:59 Intake Total 4537.558 / 4537.558 1469 / 1469 Output Total 1550 / 1550 550 / 550 Balance 2987.558 / 2987.558 919 / 919 Weight 90.718 kg Vitals Last Vital Signs Temp 98.3 F 12/14/23 14:53 Pulse 105 H 12/14/23 17:15 Resp 12 12/14/23 17:15 BP 110/71 12/14/23 17:15 Pulse Ox 82 L 12/14/23 11:30 O2 Del Method Room Air 12/14/23 08:13 TS Medications Medications Albuterol/Ipratropium (Ipratropium-Albuterol 3 Ml Neb) 3 ml INHALATION Q6H PRN PRN Reason: SHORTNESS OF BREATH Folic Acid (Folic Acid 1 Mg Tablet) 1 mg PO DAILY [facility] Last Admin: 12/14/23 09:05 Dose: 1 mg norepinephrine (Levophed) 4 mg in 250 mls @ 0 mls/hr IV .Q0M VIANNEY; Protocol Last Titration: 12/14/23 02:45 Dose: 2 mcg/min, 7.5 mls/hr Octreotide Acetate 500 mcg/ (Sodium Chloride) 101 mls @ 10.1 mls/hr IV .Q10H VIANNEY Last Admin: 12/14/23 09:49 Dose: 49.5 mcg/hr, 10 mls/hr Piperacillin Sod/Tazobactam (Sod 3.375 gm/ Sodium Chloride) 50 mls @ 12.5 mls/hr IV Q8H VIANNEY Last Admin: 12/14/23 09:05 Dose: 12.5 mls/hr Sodium Bicarbonate 150 meq/ (Dextrose) 1,150 mls @ 50 mls/hr IV .Q23H ONE Stop: 12/15/23 11:03 Last Admin: 12/14/23 14:55 Dose: 50 mls/hr Lorazepam (Lorazepam 2 Mg/Ml Inj 10 Ml Mdv) 2 mg IVP Q4H PRN PRN Reason: ALCOHOL WITHDRAWAL Last Admin: 12/14/23 08:06 Dose: 2 mg Lorazepam (Lorazepam 2 Mg Tablet) 2 mg PO Q4H PRN; Protocol PRN Reason: WITHDRAWAL Lorazepam (Lorazepam 2 Mg/Ml Inj 10 Ml Mdv) 2 mg IM Q4H PRN; Protocol PRN Reason: ALCOHOL WITHDRAWAL Lorazepam (Lorazepam 2 Mg/Ml Inj 10 Ml Mdv) 2 mg IVP PRN PRN; Protocol PRN Reason: WITHDRAWAL Magnesium Oxide (Magnesium Oxide 400 Mg Tablet) 400 mg PO BID [facility] Last Admin: 12/14/23 13:40 Dose: 400 mg Methylprednisolone Sodium Succinate (Methylprednisolone Sod Succ 125 Mg/2 Ml Inj) 80 mg IVP Q12H [facility] Last Admin: 12/14/23 04:51 Dose: 80 mg Multivitamins Therapeutic (Multivitamin Therapeutic Tablet) 1 tab PO DAILY [facility] Last Admin: 12/14/23 09:05 Dose: 1 tab Ondansetron HCl (Ondansetron 2 Mg/Ml Sdv 2 Ml) 4 mg IVP Q6H PRN PRN Reason: NAUSEA AND VOMITING Oxycodone HCl (Oxycodone 5 Mg Ir Tab/Cap) 5 mg PO Q6H PRN PRN Reason: MODERATE PAIN Last Admin: 12/14/23 02:42 Dose: 5 mg Oxycodone HCl (Oxycodone 5 Mg Ir Tab/Cap) 5 mg PO Q4H PRN PRN Reason: MODERATE PAIN Last Admin: 12/14/23 13:41 Dose: 5 mg Pantoprazole Sodium (Pantoprazole 40 Mg Sdv) 40 mg IVP BID [facility] Last Admin: 12/14/23 09:05 Dose: 40 mg Potassium Phosphate (Phosphorus 250 Mg Tablet) 250 mg PO BID [facility] Last Admin: 12/14/23 13:40 Dose: 250 mg Sodium Chloride (Sodium Chloride 0.9% 100 Ml Bag) 50 ml IV PRN PRN PRN Reason: Blood transfusion prime and flush Stop: 12/15/23 08:07 Thiamine Mononitrate (Thiamine 100 Mg Tablet) 100 mg PO DAILY VIANNEY Last Admin: 12/14/23 09:05 Dose: 100 mg Discontinued Medications Diphenhydramine HCl (Diphenhydramine 50 Mg/Ml Sdv 1ml) 25 mg IVP ONCE ONE Stop: 12/14/23 01:40 Last Admin: 12/14/23 02:03 Dose: 25 mg Fentanyl (Fentanyl 50 Mcg/Ml Inj 2ml) 25 mcg IVP ONCE ONE Stop: 12/13/23 12:27 Last Admin: 12/13/23 12:53 Dose: 25 mcg Fentanyl (Fentanyl 50 Mcg/Ml Inj 2ml) 25 mcg IVP ONCE ONE Stop: 12/13/23 15:04 Last Admin: 12/13/23 15:34 Dose: 25 mcg Sodium Chloride (Sodium Chloride 0.9%) 1,000 mls @ 999 mls/hr IV .Q1H1M ONE Stop: 12/13/23 11:00 Last Infusion: 12/13/23 12:18 Dose: Infused Ceftriaxone Sodium 2,000 mg/ (Sodium Chloride) 50 mls @ 100 mls/hr IV ONCE ONE; Protocol Stop: 12/13/23 10:29 Last Infusion: 12/13/23 12:18 Dose: Infused norepinephrine (Levophed) Confirm Administered Dose 4 mg in 250 mls @ as directed .ROUTE .STK-MED ONE Stop: 12/13/23 10:06 Sodium Chloride (Sodium Chloride 0.9%) 1,000 mls @ 999 mls/hr IV .Q1H1M ONE Stop: 12/13/23 13:18 Last Infusion: 12/13/23 15:43 Dose: Infused Piperacillin Sod/Tazobactam (Sod / Sodium Chloride) 50 mls @ 0 mls/hr [id number] CONT VIANNEY; Protocol Sodium Chloride (Sodium Chloride 0.9% (100 Ml)) Confirm Administered Dose 100 mls @ as directed .ROUTE .STK-MED ONE Stop: 12/13/23 22:06 Last Admin: 12/13/23 22:23 Dose: Not Given Phytonadione 10 mg/ Sodium (Chloride) 51 mls @ 153 mls/hr IV ONCE ONE Stop: 12/14/23 11:18 Last Admin: 12/14/23 13:41 Dose: 153 mls/hr Iohexol (Iohexol 350 Mg/Ml 500 Ml Btl (Per Ml)) 0 ml IV ONCE ONE Stop: 12/13/23 11:51 Last Admin: 12/13/23 11:50 Dose: 100 ml Ondansetron HCl (Ondansetron 2 Mg/Ml Sdv 2 Ml) 4 mg IVP ONCE ONE Stop: 12/13/23 15:28 Last Admin: 12/13/23 15:35 Dose: 4 mg Ondansetron HCl (Ondansetron 2 Mg/Ml Sdv 2 Ml) 4 mg IVP Q6H PRN PRN Reason: NAUSEA AND VOMITING Last Admin: 12/14/23 08:13 Dose: 4 mg Sodium Chloride (Sodium Chloride 0.9% 100 Ml Bag) 50 ml IV PRN PRN PRN Reason: Blood transfusion prime and flush Stop: 12/14/23 11:24 Sodium Chloride (Sodium Chloride 0.9% 100 Ml Bag) 50 ml IV PRN PRN PRN Reason: Blood transfusion prime and flush Stop: 12/14/23 23:44 Last Admin: 12/14/23 00:50 Dose: 50 ml Thiamine HCl (Thiamine 100 Mg/Ml Sdv) 100 mg IM ONCE ONE Stop: 12/14/23 08:07 Last Admin: 12/14/23 09:05 Dose: 100 mg Allergies aspirin Allergy (Unknown, Verified 11/29/23 17:56) ADR-Gastrointestinal Upset STOMACH BLEEDING NSAIDS (Non-Steroidal Anti-Inflamma Allergy (Unknown, Verified 11/29/23 17:56) Unknown psychosis.-vomits blood, hematuria acetaminophen [From Tylenol] Allergy (Verified 11/29/23 17:56) ADR-Gastrointestinal Upset naproxen [From Aleve] Allergy (Verified 11/29/23 17:56) Unknown zolpidem [From Ambien] Allergy (Verified 11/29/23 17:56) ADR-Nightmare buspirone Adverse Reaction (Intermediate, Verified 11/29/23 17:56) ADR-Anxiety Home Medications clonidine HCl 0.1 mg tablet 0.1 mg PO BID PRN Blood Pressure #60 tabs 09/05/23 [Rx Confirmed 12/13/23] omeprazole 40 mg capsule,delayed release 40 mg PO DAILY #90 caps 10/03/23 [Rx Confirmed 12/13/23] lisinopril 40 mg tablet 40 mg PO DAILY 11/05/23 [History Confirmed 12/13/23] naltrexone 50 mg tablet 50 mg PO DAILY #14 tabs 11/29/23 [Rx Confirmed 12/13/23] Discharge Plan Discharge Patient Disposition: Xfer Other Condition: Stable Prescriptions: No Action clonidine HCl 0.1 mg tablet 0.1 mg PO BID PRN (Reason: Blood Pressure) Qty: 60 0RF omeprazole 40 mg capsule,delayed release(DR/EC) 40 mg PO DAILY Qty: 90 0RF naltrexone 50 mg tablet 50 mg PO DAILY Qty: 14 0RF Rx Instructions: FOR 14 DAYS (RX FILLED 11/30/23) lisinopril 40 mg tablet 40 mg PO DAILY Referrals: Antonio Alvarado MD [Primary Care Provider] - Patient Instructions: Opioid Safety Transfer Attestations Time Spent in Transfer Care: greater than 30 min Status at Transfer: Cognitive status at transfer: cognitively intact ; Behavioral status at transfer: cooperative ; Quality Metrics Clinical Quality Measures [ No reported AMI, CVA or VTE this stay] Coding Level of Care Code Acute Code for [facility] Fwd Diagnoses Anxiety and depression F41.9; F32.A Alcoholism F10.20 Alcohol intoxication F10.929 Acute hypotension I95.9 Hypovolemic shock R57.1 Thrombocytopenia D69.6 Alcoholic gastritis K29.20 Jaundice R17 Acute hepatic failure K72.00 Acute blood loss anemia D62 Chest wall hematoma S20.219A
--- NOTE | 2023-12-14 18:05 | PC.NURSE ---
Called report to [facility] Neuro Trauma ICU and gave to Beatriz Mckay RN.
[2023-12-21 07:33] LABS: Fibrinogen Degradation Product <5 mcg/mL (LESS THAN 5)
== END 2023-12-14 21:42 | disposition short-term general hospital (02) | DRG 441 ==
LOC: ER 11:44 → ER IP 16:31 → ICU 18:33
PROVIDERS: Student in an Organized Health Care Education/Training Program; Admitting Provider Internal Medicine; Emergency Provider Family Medicine; PCP Family Medicine Adult Medicine; Visit Provider Internal Medicine
DX: K72.00 Acute and subacute hepatic failure without coma (principal); R57.1 Hypovolemic shock; R57.8 Other shock; D68.4 Acquired coagulation factor deficiency; D62 Acute posthemorrhagic anemia; E46 Unspecified protein-calorie malnutrition; R29.6 Repeated falls; N62 Hypertrophy of breast; E78.5 Hyperlipidemia, unspecified; K21.9 Gastro-esophageal reflux disease without esophagitis; F41.9 Anxiety disorder, unspecified; F32.A Depression, unspecified; I10 Essential (primary) hypertension; F43.10 Post-traumatic stress disorder, unspecified; F10.229 Alcohol dependence with intoxication, unspecified; Y90.8 Blood alcohol level of 240 mg/100 ml or more; K70.10 Alcoholic hepatitis without ascites; K70.30 Alcoholic cirrhosis of liver without ascites; E83.42 Hypomagnesemia; E83.39 Other disorders of phosphorus metabolism; Z68.26 Body mass index [BMI] 26.0-26.9, adult; D69.6 Thrombocytopenia, unspecified; K29.20 Alcoholic gastritis without bleeding; S20.212A Contusion of left front wall of thorax, initial encounter; W19.XXXA Unspecified fall, initial encounter; Y92.9 Unspecified place or not applicable
CPT/HCPCS: 36416; 36430; 36556; 36592; 36600; 51702; 70450; 71045; 71260; 72040; 74177; 80051; 80053; 80307; 82140; 82330; 82805; 82962; 83605; 83690; 83735; 84100; 85025; 85362; 85378; 85384; 85610; 85730; 86140; 86850; 86900; 86920; 86927; 87040; 93005; 96365; 96366; 96367; 96368; 96372; 96375; 99291; 99292; C1751; C9113; J0696; J1200; J2060; J2354; J2405; J2543; J2930; J3010; J3411; J3430; J7030; J7070; P9016; P9017; P9035; P9040; Q9967

== ENCOUNTER 2024-04-05 09:00 | Emergency (ER) | payer MEDICAID, SELFPAY ==
[2024-04-05 09:01] VITALS: BP 134/88; PULSE 115; RESP 18; TEMP 36.8; O2SAT 100; BMI 23.7
--- NOTE | 2024-04-05 09:04 | XR_ITS ---
WS: [id number] Exam: XR chest 1V portable [id number] Date/Time of Exam: 04/05/2024 9:06 AM Reason For Exam: dyspnea/cough Comparison 12/13/2023. Lungs are clear and fully expanded. Chronic elevation of the RIGHT diaphragm. Normal cardiomediastina l silhouette. Bony structures are intact. XR/XR chest 1V portable [id number] IMPRESSION: 1. No acute cardiopulmonary finding.
--- NOTE | 2024-04-05 09:04 | ECG_ITS ---
[facility] Test Date: 2024-04-05 Pat Name: Buddy Cowan Department: Room: Gender: Male Design Engineering Specialist: : 1990 Requested By: Igor Isaac Order Number: [id number] Thomas MD: Saundra Martinez M.D. Measurements Intervals [place] Rate: 110 P: 54 RI: 172 QRS: 40 QRSD: 75 T: -3 QT: 314 QTc: 425 Interpretive Statements SINUS TACHYCARDIA LOW QRS VOLTAGE IN PRECORDIAL LEADS [QRS DEFLECTION < 1.0 mV IN CHEST LEADS] ABNORMAL RHYTHM ECG Compared to ECG 12/13/2023 10:02:54 Sinus rhythm no longer present Electronically Signed On 04-05-2024 20:39:08 CDT by Saundra Martinez M.D. [id number]
--- NOTE | 2024-04-05 09:18 | CTR_ITS ---
PROCEDURE INFORMATION: Exam: CT Chest With Contrast; Diagnostic Exam date and time: 04/05/2024 9:33 AM Age: 33 years old Clinical indication: Chest wall pain and left-sided; Additional info: Hematoma left upper chest pectoral TECHNIQUE: Imaging protocol: Diagnostic computed tomography of the chest with contrast. Radiation optimization: All CT scans at this facility use at least one of these dose optimization techniques: automated exposure control; mA and/or kV adjustment per patient size (includes targeted exams where dose is matched to clinical indication); or iterative reconstruction. Contrast material: OMNI 350; Contrast volume: 100 ml; Contrast route: INTRAVENOUS (IV); COMPARISON: CT chest abdpel w/*[id number] 12/13/2023 11:35 AM RADIATION DOSE METRICS: Total DLP (mGy-cm): 570.13 FINDINGS: Lungs: Unremarkable. No consolidation. No masses. Pleural spaces: Unremarkable. No pneumothorax. No pleural effusion. Heart: Unremarkable. No cardiomegaly. No pericardial effusion. Lymph nodes: Unremarkable. No enlarged lymph nodes. Vasculature: Unremarkable. No aortic aneurysm. Liver: There is marked diffuse fatty infiltration of the liver noted Bones/joints: Unremarkable. No acute fracture. Soft tissues: There has been mild interval increase in size in a large complex thick-walled fluid collection within the left anterior chest wall in the subpectoral region which is mildly increased in size and measures 18 cm AP x 8.2 cm in thickness by 20 cm cephalocaudal compared with 16 x 7 x 13 cm using a similar technique and measurement on the previous examination. There has been development of multiple areas of increased density within the fluid collection which may reflect post therapeutic changes or calcification. No areas of active contrast extravasation are seen. CT/CT chest w con* [id number] IMPRESSION: 1. Mild interval enlargement in a complex thick-walled fluid collection within the left anterior chest wall which may reflect a chronic hematoma. Superimposed infection cannot be excluded radiographically and clinical correlation is suggested. There has been development of multiple areas of increased density within the fluid collection which may reflect calcification or post therapeutic changes. 2. No acute pulmonary abnormality. 3. Marked fatty infiltration of the liver
[2024-04-05] MEDS: iohexol 350 mg/mL 500 mL Btl (per mL) IV (09:34)
[2024-04-05 09:39] LABS: Basophils % 0.7 %; Eosinophils % 0.2 %; Hematocrit 42.1 % (37-53); Lymphocytes # 1.9 10^3/uL (0.8-4.8); Lymphocytes % 32.2 %; Mean Corpuscular HGB Conc 34.7 g/dL (30-55); Mean Corpuscular Hemoglobin 33.5 pg (27-33); Mean Corpuscular Volume 96.6 fl (82-101); Mean Platelet Volume 9.8 fL (7.4-10.4); Monocytes # 0.8 10^3/uL (0.2-0.9); Monocytes % 13.1 %; Neutrophils # 3.08 10^3/uL (1.8-7.7); Neutrophils % 53.6 %; Nucleated Red Blood Cells % 0 %; Platelet Count 66 10^3/cmm (157-399); Red Blood Count 4.36 10^6/uL (3.85-5.65); Red Cell Distribution Width 14.5 % (12.1-15.1); White Blood Count 5.74 10^3/uL (3.29-11.43)
[2024-04-05] MEDS: ondansetron 2 mg/ML SDV 2 mL 4 MG IVP (09:46)
[2024-04-05] MEDS: morphine 4 mg/mL SDV 1 mL 2 MG IVP (09:46)
--- NOTE | 2024-04-05 09:47 | ED_ITS ---
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 MD elicited complaint: nausea and vomiting Associated symtoms: Denies chest pain or dysuria Review of Systems 2 Const: Denies: fever(s) or chills Card: Denies: chest pain Resp: Denies: dyspnea GI: Denies: abdominal pain : Denies: dysuria, urinary frequency or urinary urgency Musc: Denies: neck pain or back pain Skin/Breast: Denies: rash PFSH ED 2 PFSH: Medical History Alcoholic gastritis Alcoholism Thrombocytopenia Chronic hyponatremia Transaminitis Chronic nausea Gynecomastia, male Panic attack Acute on chronic pancreatitis Hyperlipidemia Anxiety and depression GERD (gastroesophageal reflux disease) Hypertension Acute posttraumatic stress disorder Surgical History No pertinent past surgical history Family History Father Hypertension Social History Smoking and tobacco/nicotine status: never used tobacco/nicotine Alcohol intake: current Alcohol intake frequency: 0-2 Drinks per Day Substance/Drug Use: never Marital status: Number of children: 5 Current occupational status: employed Current gender identity: Male Physical Exam 2 Const: COMMON NORMALS: no acute distress GENERAL APPEARANCE: cooperative and comfortable ORIENTATION/CONSCIOUSNESS: Yes awake, Yes oriented to person, Yes oriented to place and Yes oriented to time HENMT: COMMON NORMALS: normocephalic, atraumatic and hearing grossly normal bilaterally HEAD & SCALP: normocephalic and atraumatic Resp: COMMON NORMALS: normal respiratory effort, No retractions, No use of accessory muscles and clear to auscultation bilaterally AUSCULTATION: clear to auscultation bilaterally Cardio: COMMON NORMALS: regular rate, regular rhythm and No murmurs present (Cardio) RATE: regular rate RHYTHM: regular rhythm GI: COMMON NORMALS: Soft to palpation and No hepatosplenomegaly present A USCULTATION: Yes normoactive bowel sounds PALPATION: Yes Soft to palpation, No Tenderness to palpation present (GI), No Guarding due to palpation present (GI) and Yes No hepatosplenomegaly present Extremity: COMMON NORMALS: normal to inspection, capillary refill normal, no clubbing, cyanosis or edema, no calf tenderness and no pedal edema Neuro: SENSORIUM/ORIENTATION: Yes oriented to person, Yes oriented to place and Yes oriented to time Skin: COMMON NORMALS: no rashes or lesions noted GENERAL SKIN EXAM: no rashes or lesions noted Course 2 Vital Signs: Vital signs: Vital Signs Temperature 98.2 F 04/05/24 09:01 Pulse Rate 105 H 04/05/24 09:51 Respiratory Rate 18 04/05/24 09:51 Blood Pressure 145/95 04/05/24 09:51 Pulse Oximetry 99 04/05/24 09:51 Oxygen Delivery Me thod Room Air 04/05/24 09:51 MDM - Nausea/Vomiting/Diarrhea Medical Decision Making Patient acutely intoxicated. His anion gap is elevated which I think is also due to his intoxication. His hemoglobin is stable there is slight enlargement of the hematoma but no evidence of active bleeding. A few days ago he was cut off from his narcotics which I think may play a role in this. We offered IV fluids patient refuses. Discussed with him the importance of abstaining from alcohol. He denies having been drinking at all states he has not drank in quite some time. Patient request to be discharged. He is awake and alert answers questions appropriately at this point per his request he was discharged. I did advise him that if he wished he could return at any point and we can reevaluate. Reviewed his other laboratory findings with him as well including his platelet count of 66 and his anion gap being abnormal. Medical Records I reviewed the patient's medical records. Lab Data I reviewed the patient's lab results. 04/05/24 08:47 04/05/24 08:47 Radiology Impressions Chest X-Ray 04/05/24 09:04 IMPRESSION: 1. No acute cardiopulmonary finding. Chest CT 04/05/24 09:18 IMPRESSION: 1. Mild interval enlargement in a complex thick-walled fluid collection within the left anterior chest wall which may reflect a chronic hematoma. Superimposed infection cannot be excluded radiographically and clinical correlation is suggested. There has been development of multiple areas of increased density within the fluid collection which may reflect calcification or post therapeutic changes. 2. No acute pulmonary abnormality. 3. Marked fatty infiltration of the liver Laboratory Results WBC 5.74 10^3/uL (3.29-11.43) 04/05/24 08:47 RBC 4.36 10^6/uL (3.85-5.65) 04/05/24 08:47 Hgb 14.60 g/dL (11.27-16.99) 04/05/24 08:47 Hct 42.1 % (37-53) 04/05/24 08:47 MCV 96.6 fl (82-101) 04/05/24 08:47 MCH 33.5 pg (27-33) H 04/05/24 08:47 MCHC 34.7 g/dL (30-55) 04/05/24 08:47 RDW 14.5 % (12.1-15.1) 04/05/24 08:47 Plt Count 66 10^3/cmm (157-399) L 04/05/24 08:47 MPV 9.8 fL (7.4-10.4) 04/05/24 08:47 Neut % (Auto) 53.6 % 04/05/24 08:47 Lymph % (Auto) 32.2 % 04/05/24 08:47 [place] % (Auto) 13.1 % 04/05/24 08:47 Eos % (Auto) 0.2 % 04/05/24 08:47 Baso % (Auto) 0.7 % 04/05/24 08:47 Neut # (Auto) 3.08 10^3/uL (1.8-7.7) 04/05/24 08:47 Lymph # (Auto) 1.9 10^3/uL (0.8-4.8) 04/05/24 08:47 [place] # (Auto) 0.8 10^3/uL (0.2-0.9) 04/05/24 08:47 Eos # (Auto) 0.0 10^3/uL (0.0-0.8) 04/05/24 08:47 Baso # (Auto) 0.0 10^3/uL (0.0-0.1) 04/05/24 08:47 Nucleated RBC % (auto) 0 % 04/05/24 08:47 Nucleated RBCs # 0.0 /100WBC 04/05/24 08:47 PT 16.10 SECONDS (12.1-14.9) H 04/05/24 08:47 INR 1.24 (0.8-1.2) H 04/05/24 08:47 APTT 38.9 SECONDS (23.9-36.7) H 04/05/24 08:47 Sodium 135 mmol/L (136-145) L 04/05/24 08:47 Potassium 3.5 mmol/L (3.5-5.1) 04/05/24 08:47 Chloride 93 mmol/L (98-107) L 04/05/24 08:47 Carbon Dioxide 22 mmol/L (22-29) 04/05/24 08:47 Anion Gap 23.5 (5-19) H 04/05/24 08:47 BUN 4 mg/dL (6-20) L 04/05/24 08:47 Creatinine 0.2 mg/dL (0.7-1.2) L 04/05/24 08:47 GFR Calculation 551.3 mL/min (90-130) H 04/05/24 08:47 Glucose 99 mg/dL (65-115) 04/05/24 08:47 Calculated Osmolality 277 mOsm/kg (285-295) L 04/05/24 08:47 Calcium 8.6 mg/dL (8.5-10.5) 04/05/24 08:47 Total Bilirubin 4.1 mg/dL (0.15-1.2) H 04/05/24 08:47 AST 163 U/L (0-40) H 04/05/24 08:47 ALT 72 U/L (0-41) H 04/05/24 08:47 Alkaline Phosphatase 292 U/L (40-130) H 04/05/24 08:47 Ammonia 47 umol/L (16-60) 04/05/24 08:47 Total Protein 8.3 g/dL (6.6-8.7) 04/05/24 08:47 Albumin 4.0 g/dL (3.5-5.2) 04/05/24 08:47 Globulin 4.3 g/dL (1.3-4.6) 04/05/24 08:47 Ethyl Alcohol 232 mg/dL (0-10) H 04/05/24 08:47 All radiology interpretation(s) finalized by discharge Discharge Plan Discharge Patient Disposition: Home Clinical Impression: Alcohol intoxication, Chest wall hematoma, Jaundice, Alcoholic cirrhosis of liver, Thrombocytopenia Condition: Stable Prescriptions: No Action clonidine HCl 0.1 mg tablet 0.1 mg PO BID PRN (Reason: Blood Pressure) Qty: 60 0RF omeprazole 40 mg capsule,delayed release(DR/EC) 40 mg PO DAILY Qty: 90 0RF naltrexone 50 mg tablet 50 mg PO DAILY Rx Instructions: FOR 14 DAYS lisinopril 20 mg tablet 20 mg PO BID hydromorphone 2 mg tablet 2 mg PO Q6H PRN (Reason: Pain, Severe) lactulose 10 gram/15 mL solution 15 ml PO BID Discharge Orders: Discharge ED (Routine); Ordered 04/05/24 Ordered By: Igor Diaz Referrals: Antonio Alvarado MD [Primary Care Provider] - Discharge Diet: Usual diet Discharge Activity: Increase activity as tolerated Patient Instructions: Opioid Safety, Pain Management Activity Restrictions/Additional Instructions: Thank you for choosing [facility] for your healthcare needs today. It is very important that you follow up as instructed or that you return to the Emergency Department should you have concerns or if your condition changes or worsens in any way. Your blood alcohol was significantly elevated in the emergency room today. Recommend that you abstain from the use of alcohol given your past medical history and medical complications from the use of alcohol. The hematoma on your chest is slightly enlarged but not appear to be actively bleeding. Your hemoglobin is stable. We did offer you IV fluids due to your tachycardia and elevated anion gap (this is a result of the alcohol intoxication). You have declined the IV fluids you are welcome to return at any time if you would like to be reevaluated. Recommend that you discuss the hematoma on the chest wall with your primary care provider for referral to surgery for long-term management of this. 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
[2024-04-05 09:51] VITALS: BP 145/95; PULSE 105; RESP 18; O2SAT 99
[2024-04-05 09:53] LABS: Alanine Aminotransferase 72 U/L (0-41); Alcohol Level 232 mg/dL (0-10); Alkaline Phosphatase 292 U/L (40-130); Aspartate Amino Transferase 163 U/L (0-40); Blood Urea Nitrogen 4 mg/dL (6-20); Calcium 8.6 mg/dL (8.5-10.5); Carbon Dioxide 22 mmol/L (22-29); Chloride 93 mmol/L (98-107); Creatinine Clr Calc Pharmacy 598.8939; Globulin 4.3 g/dL (1.3-4.6); Glomerular Filtration Rate 551.3 mL/min (90-130); Glucose 99 mg/dL (65-115); Osmolality Calculated 277 mOsm/kg (285-295); Sodium 135 mmol/L (136-145); Total Bilirubin 4.1 mg/dL (0.15-1.2); Total Protein 8.3 g/dL (6.6-8.7)
[2024-04-05 10:02] LABS: Anion Gap 23.5 (5-19); Potassium 3.5 mmol/L (3.5-5.1)
[2024-04-05 10:26] LABS: INR 1.24 (0.8-1.2)
[2024-04-05 10:27] LABS: Partial Thromboplastin Time 38.9 SECONDS (23.9-36.7)
[2024-04-05 10:43] LABS: Ammonia 47 umol/L (16-60)
[2024-04-05 10:48] VITALS: BP 126/82; PULSE 111; RESP 18; O2SAT 98
== END 2024-04-05 10:51 | disposition home or self-care (01) ==
PROVIDERS: Emergency Provider Family Medicine; PCP Family Medicine Adult Medicine
DX: F10.129 Alcohol abuse with intoxication, unspecified (principal); Y90.7 Blood alcohol level of 200-239 mg/100 ml; K70.30 Alcoholic cirrhosis of liver without ascites; D69.6 Thrombocytopenia, unspecified; E78.5 Hyperlipidemia, unspecified; I10 Essential (primary) hypertension
CPT/HCPCS: 71045; 71260; 80053; 80307; 82140; 85025; 85610; 85730; 93005; 96374; 96375; 99285; J2270; J2405; Q9967

== ENCOUNTER 2024-04-20 17:07 | Inpatient (IN) | payer MEDICAID, SELFPAY ==
[2024-04-20 17:21] VITALS: BP 108/66; PULSE 97; RESP 18; TEMP 36.6; O2SAT 98
[2024-04-20 18:07] LABS: Alcohol Level 467 mg/dL (0-10)
[2024-04-20 18:13] LABS: Basophils % 0.2 %; Hematocrit 28.4 % (37-53); Lymphocytes # 0.6 10^3/uL (0.8-4.8); Lymphocytes % 7.2 %; Mean Corpuscular Hemoglobin 34.7 pg (27-33); Mean Corpuscular Volume 93.7 fl (82-101); Monocytes # 0.8 10^3/uL (0.2-0.9); Monocytes % 9.8 %; Neutrophils # 6.74 10^3/uL (1.8-7.7); Neutrophils % 82.4 %; Nucleated Red Blood Cells % 0 %; Platelet Count 41 10^3/cmm (157-399); Red Blood Count 3.03 10^6/uL (3.85-5.65); Red Cell Distribution Width 14.6 % (12.1-15.1); White Blood Count 8.18 10^3/uL (3.29-11.43)
[2024-04-20 18:17] LABS: INR 1.91 (0.8-1.2)
[2024-04-20 18:18] LABS: Partial Thromboplastin Time 48.7 SECONDS (23.9-36.7)
[2024-04-20 18:23] LABS: Alanine Aminotransferase 100 U/L (0-41); Albumin Level 3.5 g/dL (3.5-5.2); Alkaline Phosphatase 295 U/L (40-130); Anion Gap 23.5 (5-19); Aspartate Amino Transferase 286 U/L (0-40); Blood Urea Nitrogen 5 mg/dL (6-20); Calcium 7.8 mg/dL (8.5-10.5); Carbon Dioxide 19 mmol/L (22-29); Chloride 83 mmol/L (98-107); Creatinine Clr Calc Pharmacy 239.5575; Globulin 3.3 g/dL (1.3-4.6); Glomerular Filtration Rate 191.5 mL/min (90-130); Glucose 111 mg/dL (65-115); Osmolality Calculated 252 mOsm/kg (285-295); Potassium 3.5 mmol/L (3.5-5.1); Sodium 122 mmol/L (136-145); Total Protein 6.8 g/dL (6.6-8.7)
--- NOTE | 2024-04-20 18:25 | XRR_ITS ---
PROCEDURE INFORMATION: Exam: XR Thoracic Spine Exam date and time: 04/20/2024 6:42 PM Age: 33 years old Clinical indication: Pain in thoracic spine; Patient HX: Low/mid pain after fall TECHNIQUE: Imaging protocol: Radiologic exam of the thoracic spine. Views: 3 views. COMPARISON: CT chest w con* [id number] 04/05/2024 9:33 AM FINDINGS: Bones/joints: Normal. No acute fracture. Normal alignment. Soft tissues: Unremarkable. XR/XR thoracic spine 3V* [id number] IMPRESSION: No acute findings.
--- NOTE | 2024-04-20 18:25 | XRR_ITS ---
PROCEDURE INFORMATION: Exam: XR Lumbosacral Spine Exam date and time: 04/20/2024 6:44 PM Age: 33 years old Clinical indication: Lumbago; Patient HX: Low/mid pain after fall TECHNIQUE: Imaging protocol: Radiologic exam of the lumbosacral spine. Views: 2 or 3 views. COMPARISON: CT chest abdpel w/*[id number] 12/13/2023 11:35 AM FINDINGS: Bones/joints: There are anterior marginal osteophytes across the L2-L3 level. Lower lumbar facet arthropathy. Soft tissues: Unremarkable. Gastrointestinal tract: There is gaseous distension of small bowel loops with possible small bowel dilatation. This is not optimally evaluated by radiograph. XR/XR lumbar spine 2-3V* [id number] IMPRESSION: 1. There are degenerative changes in the lumbar spine as described above. No evidence for acute fracture. 2. There is gaseous distension of small bowel loops with possible small bowel dilatation. This is not optimally evaluated by radiograph. Consider CT scan abdomen/pelvis for further evaluation if there is clinical suspicion for small bowel obstruction.
[2024-04-20 18:29] LABS: Total Bilirubin 11.6 mg/dL (0.15-1.2)
[2024-04-20 18:31] LABS: Ammonia 59 umol/L (16-60)
--- NOTE | 2024-04-20 18:40 | CTR_ITS ---
PROCEDURE INFORMATION: Exam: CT Abdomen And Pelvis With Contrast Exam date and time: 04/20/2024 7:13 PM Age: 33 years old Clinical indication: Abdominal pain; Generalized; Patient HX: Abd and back pain. Recent multiple falls. History of cirrhosis and recurrent pancreatitis. Known left chest wall fluid collection. ; Additional info: Falls/hx of liver cirrhosis TECHNIQUE: Imaging protocol: Computed tomography of the abdomen and pelvis with contrast. Axial, coronal and sagittal reformatted images were created and reviewed. Radiation optimization: All CT scans at this facility use at least one of these dose optimization techniques: automated exposure control; mA and/or kV adjustment per patient size (includes targeted exams where dose is matched to clinical indication); or iterative reconstruction. Contrast material: OMNI 350; Contrast volume: 100 ml; Contrast route: INTRAVENOUS (IV); COMPARISON: CT chest abdpel w/*[id number] 12/13/2023 11:35 AM RADIATION DOSE METRICS: Total DLP (mGy-cm): 789.93 FINDINGS: Liver: Moderate hepatomegaly. Diffuse hepatic steatosis. Unchanged 2.8 cm of lobular hyperdense lesion in the right hepatic lobe, possibly a hemangioma. Gallbladder and biliary ducts: No radiodense gallstones. No biliary ductal dilatation. Pancreas: Mild peripancreatic stranding and edema. Questionable 1.8 x 1.8 cm low-density area in the pancreatic head/uncinate process. Spleen: Unremarkable. Adrenal glands: Normal. No mass. Kidneys and ureters: No mass. No radiodense calculi. No hydronephrosis. Stomach and bowel: No bowel wall thickening. No obstruction. No pneumatosis. Appendix: Normal. Intraperitoneal space: Trace ascites. No organized collection. No free air. Vasculature: Unremarkable. No aneurysm. Lymph nodes: No pathologically enlarged lymph nodes. Urinary bladder: Mild urinary bladder distension. Reproductive: Unremarkable. Bones/joints: Unchanged lucencies in the bilateral iliac bones. Mild degenerative changes. Soft tissues: Partially visualized resolving hematoma in the left pectoral region. CT/CT abdomen pelvis w con* [id number] IMPRESSION: 1. Acute pancreatitis, as described above. Correlate with serum amylase and lipase levels. No drainable fluid collection. No necrosis or hemorrhage. Follow-up to resolution is recommended. 2. Questionable 1.8 x 1.8 cm low-density area in the pancreatic head/uncinate process. Consider MRI to exclude underlying mass lesion upon resolution of the patient's acute clinical issues. 3. Enlarged, fatty liver. 4. Partially visualized resolving hematoma in the left pectoral region. 5. Unchanged lucencies in the bilateral iliac bones. 6. Additional findings, as above.
--- NOTE | 2024-04-20 18:52 | ED_ITS ---
Documented by User: ROBERTO Woodard 04/21/24 00:06 HPI - Fall 2 General: Chief Complaint: Fall Stated Complaint: BACK PAIN S/P FALL Time Seen by Provider: 04/20/24 17:11 Source: patient and family Mode of arrival: EMS Limitations: other (intoxicated) History of Present Illness: Patient is a 33-year-old male who presents to the emergency department by ambulance complaining of diffuse pain and multiple falls recently. He arrives obviously intoxicated, and clearly jaundiced with scleral icterus. He has multiple visits recently, was last seen on 04/05 for similar complaints and did arrive intoxicated at that time as well. He reportedly has a fractured ribs on the left side that has resulted in hematoma formation, of which she was prescribed opiates back in December of this year. He states he has since been cut off from this and has been drinking to numb the pain. He does not quantify how much he drinks, but does state he drinks wine every day. Spouse in the room states he will not quit falling and has multiple injuries to his back and buttock region. He does not provide a very accurate or substantial history or review of systems due to his intoxication at this time. Review of systems is limited. He has evidence of trauma to his back and a large ecchymotic area to his bilateral buttock region. His past medical history includes transaminitis secondary to liver cirrhosis. In addition he is alcoholic gastritis as well as chronic hyponatremia and has been hospitalized recently in December of this year due to acute blood loss anemia. MD complaint: fall (Plus intoxication) Review of Systems 2 General: Reports: Other (Unobtainable due to intoxication) [facility] ED 2 [facility]: Medical History (Updated 04/28/24 @ 13:31 by Troy Hopson MD) High anion gap metabolic acidosis Alcoholic gastritis Alcoholism Thrombocytopenia Chronic hyponatremia Transaminitis Chronic nausea Gynecomastia, male Panic attack Acute on chronic pancreatitis Hyperlipidemia Anxiety and depression GERD (gastroesophageal reflux disease) Hypertension Acute posttraumatic stress disorder Surgical History No pertinent past surgical history Family History Father Hypertension Social History Smoking and tobacco/nicotine status: never used tobacco/nicotine Alcohol intake: current Alcohol intake frequency: 0-2 Drinks per Day Substance/Drug Use: never Marital status: Number of children: 5 Current occupational status: employed Current gender identity: Male Physical Exam 2 Const: COMMON NORMALS: patient oriented x3 and alert GENERAL APPEARANCE: d isheveled, lethargic, ill appearing and odor of alcohol detected NUTRITIONAL APPEARANCE: thin ORIENTATION/CONSCIOUSNESS: Yes awake, Yes oriented to person, Yes oriented to place, Yes oriented to time and Yes lethargic OTHER: grossly jaundiced, appears uncomfortable in bed HENMT: COMMON NORMALS: normocephalic, atraumatic and moist oral mucous membranes HEAD & SCALP: normocephalic and atraumatic Eye: COMMON NORMALS: Equal, round and reactive pupils present SCLERA: s cleral abnormal Laterality of scleral abnormality: positive bilateral scleral icterus PUPIL: Yes Equal, round and reactive pupils present Neck/C-Spine: COMMON NORMALS: full ROM and no meningeal signs Chest: OTHER: Gynecomastia bilateral breasts. Reproducible tenderness to palpation of the anterior chest wall, left worse than right Resp: COMMON NORMALS: normal respiratory effort, No retractions, No use of accessory muscles and clear to auscultation bilaterally AUSCULTATION: clear to auscultation bilaterally Cardio: COMMON NORMALS: regular rate, regular rhythm, No gallops present (Cardio), No murmurs present (Cardio) and No rub (Cardio) RATE: regular rate RHYTHM: regular rhythm GI: COMMON NORMALS: Soft to palpation and no masses AUSCULTATION: Yes normoactive bowel sounds PALPATION: Yes Soft to palpation and Yes Tenderness to palpation present (GI) (Mild diffuse tenderness to palpation) RECTAL EXAM: Yes deferred Back/Pelvis: OTHER: Multiple areas of trauma to his back, scattered abrasions and hematoma to left lower rib area Extremity: COMMON NORMALS: full ROM, capillary refill normal and no joint enlargement Neuro: COMMON NORMALS: patient oriented x3, moves all extremities, no focal motor deficits and no sensory deficits noted SENSORIUM/ORIENTATION: Yes alert, Yes oriented to person, Yes oriented to place, Yes oriented to time and Yes lethargic MENINGEAL SIGNS: Yes no meningeal signs Psych: APPEARANCE: Yes unkempt ACTIVITY/MOTOR BEHAVIOR: Yes psychomotor agitation SPEECH: Yes incoherent and Yes slow THOUGHT PROCESS: incoherent Course 2 Vital Signs: Vital signs: Vital Signs Temperature 98.8 F 05/01/24 16:00 Pulse Rate 94 05/01/24 16:00 Respiratory Rate 18 05/01/24 16:53 Blood Pressure 95/57 05/01/24 16:00 Pulse Oximetry 92 05/01/24 16:00 Oxygen Delivery Me thod Room Air 05/01/24 16:00 MDM - Fall Medical Decision Making Patient brought in by ambulance, intoxicated. Initial report was that he was falling, however upon further review found him to be hospitalized here in December and recently seen here in the emergency department a couple weeks ago. He has a significant history of alcohol cirrhosis and other alcohol related illnesses. On arrival he is significantly jaundiced with scleral icterus present, does appear obtunded at this time and has alcohol odor. Alcohol was over 400. His labs found him to be thrombocytopenic, worse from prior. In addition his lipase was elevated, sodium was 122, along with a total bili of 11.6. CT evaluation did find an acute pancreatitis with an ill-defined lesion, and I spoke with hospitalist, Dr. Ramey, who agrees to accept the patient for admission and MRCP. Patient was given fluids here in the emergency department, and Dr. Diaz, who is familiar with the patient, is made aware of patient's case and current findings. Lab Data 05/01/24 04:17 05/01/24 04:17 Radiology Impressions Lumbar Spine X-Ray 04/20/24 18:25 IMPRESSION: 1. There are degenerative changes in the lumbar spine as described above. No evidence for acute fracture. 2. There is gaseous distension of small bowel loops with possible small bowel dilatation. This is not optimally evaluated by radiograph. Consider CT scan abdomen/pelvis for further evaluation if there is clinical suspicion for small bowel obstruction. Thoracic Spine X-Ray 04/20/24 18:25 IMPRESSION: No acute findings. Abdomen/Pelvis CT 04/20/24 18:40 IMPRESSION: 1. Acute pancreatitis, as described above. Correlate with serum amylase and lipase levels. No drainable fluid collection. No necrosis or hemorrhage. Follow-up to resolution is recommended. 2. Questionable 1.8 x 1.8 cm low-density area in the pancreatic head/uncinate process. Consider MRI to exclude underlying mass lesion upon resolution of the patient's acute clinical issues. 3. Enlarged, fatty liver. 4. Partially visualized resolving hematoma in the left pectoral region. 5. Unchanged lucencies in the bilateral iliac bones. 6. Additional findings, as above. Head CT 04/20/24 22:27 IMPRESSION: No acute intracranial abnormality. Chest Ultrasound 04/21/24 17:20 IMPRESSION: Apparent subcutaneous complex hematoma measuring 5 x 2 cm in the left anterior chest, underlying infection is not excluded based on imaging alone. Cholangiopancreatography MRI 04/22/24 08:26 IMPRESSION: 1. Study is compromised by motion artifact. Patient was unable to hold his breath for this examination. 2. Normal common bile duct. 3. Minimally hydropic gallbladder with a small amount of adjacent fluid. There is fluid extending into the paracolic gutter and also surrounding the pancreas from pancreatitis. This is only a small amount of fluid. 4. Pancreatic head is mildly enlarged and edematous. MRCP examination is not targeted to evaluate the pancreas for mass. As patient is unable to hold his breath for this examination or cooperate recommend follow-up dedicated MRI of the pancreas with and without contrast when the patient is clinically able to cooperate. Otherwise short-term follow-up by CT, multiphase, may be more appropriate due to short of breath holding times. Chest X-Ray 04/23/24 09:16 IMPRESSION: See above Chest/Abdomen/Pelvis CT 04/24/24 08:31 IMPRESSION: 1. Similar-appearing mixed attenuation LEFT chest wall hematoma. 2. Small RIGHT and tiny LEFT pleural effusions. 3. Stable findings of acute pancreatitis as previously described. No drainable fluid collections. No evidence of pancreatic necrosis. 4. Marked hepatomegaly with diffuse fatty filtration of the liver. Splenomegaly. 5. No evidence of retroperitoneal hematoma. 6. Intramuscular hematoma within the RIGHT gluteus musculature measuring 6.4 x 4.1 cm with a small amount of increased attenuation blood products. 7. Stable enhancing lesion in the RIGHT hepatic lobe measuring 2.3 cm may represent a hemangioma. 8. Stable lytic lesion/lucencies in the bony pelvis more prominent in the iliac wings. 9. Hydropic fluid distended gallbladder. Notified Troy Hopson MD at 04/24/2024 10:13 AM. Laboratory Results WBC 8.18 10^3/uL (3.29-11.43) 04/20/24 17:43 RBC 3.03 10^6/uL (3.85-5.65) L 04/20/24 17:43 Hgb 10.50 g/dL (11.27-16.99) L 04/20/24 17:43 Hct 28.4 % (37-53) L 04/20/24 17:43 MCV 93.7 fl (82-101) 04/20/24 17:43 MCH 34.7 pg (27-33) H 04/20/24 17:43 MCHC 37.0 g/dL (30-55) 04/20/24 17:43 RDW 14.6 % (12.1-15.1) 04/20/24 17:43 Plt Count 41 10^3/cmm (157-399) L 04/20/24 17:43 MPV 11.0 fL (7.4-10.4) H 04/20/24 17:43 Neut % (Auto) 82.4 % 04/20/24 17:43 Lymph % (Auto) 7.2 % 04/20/24 17:43 Starke % (Auto) 9.8 % 04/20/24 17:43 Eos % (Auto) 0.0 % 04/20/24 17:43 Baso % (Auto) 0.2 % 04/20/24 17:43 Neut # (Auto) 6.74 10^3/uL (1.8-7.7) 04/20/24 17:43 Lymph # (Auto) 0.6 10^3/uL (0.8-4.8) L 04/20/24 17:43 Starke # (Auto) 0.8 10^3/uL (0.2-0.9) 04/20/24 17:43 Eos # (Auto) 0.0 10^3/uL (0.0-0.8) 04/20/24 17:43 Baso # (Auto) 0.0 10^3/uL (0.0-0.1) 04/20/24 17:43 Nucleated RBC % (auto) 0 % 04/20/24 17:43 Nucleated RBCs # 0.0 /100WBC 04/20/24 17:43 PT 22.60 SECONDS (12.1-14.9) H 04/20/24 17:43 INR 1.91 (0.8-1.2) H 04/20/24 17:43 APTT 48.7 SECONDS (23.9-36.7) H 04/20/24 17:43 Sodium 122 mmol/L (136-145) L 04/20/24 17:43 Potassium 3.5 mmol/L (3.5-5.1) 04/20/24 17:43 Chloride 83 mmol/L (98-107) L 04/20/24 17:43 Carbon Dioxide 19 mmol/L (22-29) L 04/20/24 17:43 Anion Gap 23.5 (5-19) H 04/20/24 17:43 BUN 5 mg/dL (6-20) L 04/20/24 17:43 Creatinine 0.5 mg/dL (0.7-1.2) L 04/20/24 17:43 GFR Calculation 191.5 mL/min (90-130) H 04/20/24 17:43 Glucose 111 mg/dL (65-115) 04/20/24 17:43 Serum Osmolality 328 mOsm/kg (278-305) H 04/20/24 06:07 Calculated Osmolality 252 mOsm/kg (285-295) L 04/20/24 17:43 Lactic Acid 4.1 mmol/L (0.5-2.2) H* 04/20/24 17:43 Calcium 7.8 mg/dL (8.5-10.5) L 04/20/24 17:43 Phosphorus 2.3 mg/dL (2.5-4.5) L 04/20/24 17:43 Magnesium 1.5 mg/dL (1.7-2.3) L 04/20/24 17:43 Total Bilirubin 11.6 mg/dL (0.15-1.2) H* 04/20/24 17:43 AST 286 U/L (0-40) H 04/20/24 17:43 ALT 100 U/L (0-41) H 04/20/24 17:43 Alkaline Phosphatase 295 U/L (40-130) H 04/20/24 17:43 Ammonia 59 umol/L (16-60) 04/20/24 17:43 Total Protein 6.8 g/dL (6.6-8.7) 04/20/24 17:43 Albumin 3.5 g/dL (3.5-5.2) 04/20/24 17:43 Globulin 3.3 g/dL (1.3-4.6) 04/20/24 17:43 Lipase 598 U/L (13-60) H 04/20/24 17:43 Procalcitonin 0.26 ng/mL (0-0.5) 04/20/24 17:43 Urine Color Sutton (Yellow) A 04/20/24 05:45 Urine Appearance Cloudy (CLEAR) A 04/20/24 05:45 Urine pH 7 (5-7) 04/20/24 05:45 Ur Specific [place] 1.010 (1.005-1.030) 04/20/24 05:45 Urine Protein Trace (Negative) 04/20/24 05:45 Urine Glucose (UA) Norm (Normal) 04/20/24 05:45 Urine Ketones 2+ (Negative) H 04/20/24 05:45 Urine Blood 2+ (Negative) H 04/20/24 05:45 Urine Nitrate Negative (Negative) 04/20/24 05:45 Urine Bilirubin 2+ (Negative) H 04/20/24 05:45 Urine Urobilinogen 1 mg/dL (Negative) H 04/20/24 05:45 Ur Leukocyte Esterase Negative (Negative) 04/20/24 05:45 Urine RBC 5-10 /hpf (0-2) H 04/20/24 05:45 Urine WBC 5-10 /hpf (0-5) H 04/20/24 05:45 Ur Squamous Epith Cells 0-4 /hpf (0-5) H 04/20/24 05:45 Amorphous Sediment Not Reportable 04/20/24 05:45 Urine Bacteria 1+ /hpf (NONE) H 04/20/24 05:45 Urine Osmolality 442 mOsm/kg (50-1200) 04/20/24 05:45 Ur Random Sodium 14 mmol/L 04/20/24 05:45 Urine Opiates Screen Positive ng/mL (Negative) H 04/20/24 05:45 Ur Barbiturates Screen Negative ng/mL (Negative) 04/20/24 05:45 Ur Phencyclidine Scrn Negative ng/mL (Negative) 04/20/24 05:45 Ur Amphetamines Screen Negative ng/mL (Negative) 04/20/24 05:45 U Benzodiazepines Scrn Negative ng/mL (Negative) 04/20/24 05:45 Urine Cocaine Screen Negative ng/mL (Negative) 04/20/24 05:45 U Marijuana (THC) Screen Negative ng/mL (Negative) 04/20/24 05:45 Ethyl Alcohol 467 mg/dL (0-10) H* 04/20/24 17:43 All radiology interpretation(s) finalized by discharge Discharge Plan Discharge Patient Disposition: Admitted As Inpatient Admit Provider: Elizabeth Ramey Clinical Impression: Advanced cirrhosis of liver Acute alcoholic pancreatitis Qualifiers: Acute pancreatitis complication: unspecified Qualified Code(s): K85.20 - Alcohol induced acute pancreatitis without necrosis or infection Condition: Stable Coding Level of Care Code ED Curing Pickling Packer for Chg Fwd Documented by User: Igor Diaz DO 05/03/24 06:48 HPI - Fall 2 General: Chief Complaint: Fall Stated Complaint: BACK PAIN S/P FALL Time Seen by Provider: 04/20/24 17:11 PFSH ED 2 PFSH: Medical History (Updated 04/28/24 @ 13:31 by Troy Hopson MD) High anion gap metabolic acidosis Alcoholic gastritis Alcoholism Thrombocytopenia Chronic hyponatremia Transaminitis Chronic nausea Gynecomastia, male Panic attack Acute on chronic pancreatitis Hyperlipidemia Anxiety and depression GERD (gastroesophageal reflux disease) Hypertension Acute posttraumatic stress disorder Surgical History No pertinent past surgical history Family History Father Hypertension Social History Smoking and tobacco/nicotine status: never used tobacco/nicotine Alcohol intake: current Alcohol intake frequency: 0-2 Drinks per Day Substance/Drug Use: never Marital status: Number of children: 5 Current occupational status: employed Current gender identity: Male Course 2 Vital Signs: Vital signs: Vital Signs Temperature 98.8 F 05/01/24 16:00 Pulse Rate 94 05/01/24 16:00 Respiratory Rate 18 05/01/24 16:53 Blood Pressure 95/57 05/01/24 16:00 Pulse Oximetry 92 05/01/24 16:00 Oxygen Delivery Me thod Room Air 05/01/24 16:00 MDM - Fall Medical Decision Making Patient brought in by ambulance, intoxicated. Initial report was that he was falling, however upon further review found him to be hospitalized here in December and recently seen here in the emergency department a couple weeks ago. He has a significant history of alcohol cirrhosis and other alcohol related illnesses. On arrival he is significantly jaundiced with scleral icterus present, does appear obtunded at this time and has alcohol odor. Alcohol was over 400. His labs found him to be thrombocytopenic, worse from prior. In addition his lipase was elevated, sodium was 122, along with a total bili of 11.6. CT evaluation did find an acute pancreatitis with an ill-defined lesion, and I spoke with hospitalist, Dr. Ramey, who agrees to accept the patient for admission and MRCP. Patient was given fluids here in the emergency department, and Dr. Diaz, who is familiar with the patient, is made aware of patient's case and current findings. Chart reviewed. Lab Data 05/01/24 04:17 05/01/24 04:17 Radiology Impressions Lumbar Spine X-Ray 04/20/24 18:25 IMPRESSION: 1. There are degenerative changes in the lumbar spine as described above. No evidence for acute fracture. 2. There is gaseous distension of small bowel loops with possible small bowel dilatation. This is not optimally evaluated by radiograph. Consider CT scan abdomen/pelvis for further evaluation if there is clinical suspicion for small bowel obstruction. Thoracic Spine X-Ray 04/20/24 18:25 IMPRESSION: No acute findings. Abdomen/Pelvis CT 04/20/24 18:40 IMPRESSION: 1. Acute pancreatitis, as described above. Correlate with serum amylase and lipase levels. No drainable fluid collection. No necrosis or hemorrhage. Follow-up to resolution is recommended. 2. Questionable 1.8 x 1.8 cm low-density area in the pancreatic head/uncinate process. Consider MRI to exclude underlying mass lesion upon resolution of the patient's acute clinical issues. 3. Enlarged, fatty liver. 4. Partially visualized resolving hematoma in the left pectoral region. 5. Unchanged lucencies in the bilateral iliac bones. 6. Additional findings, as above. Head CT 04/20/24 22:27 IMPRESSION: No acute intracranial abnormality. Chest Ultrasound 04/21/24 17:20 IMPRESSION: Apparent subcutaneous complex hematoma measuring 5 x 2 cm in the left anterior chest, underlying infection is not excluded based on imaging alone. Cholangiopancreatography MRI 04/22/24 08:26 IMPRESSION: 1. Study is compromised by motion artifact. Patient was unable to hold his breath for this examination. 2. Normal common bile duct. 3. Minimally hydropic gallbladder with a small amount of adjacent fluid. There is fluid extending into the paracolic gutter and also surrounding the pancreas from pancreatitis. This is only a small amount of fluid. 4. Pancreatic head is mildly enlarged and edematous. MRCP examination is not targeted to evaluate the pancreas for mass. As patient is unable to hold his breath for this examination or cooperate recommend follow-up dedicated MRI of the pancreas with and without contrast when the patient is clinically able to cooperate. Otherwise short-term follow-up by CT, multiphase, may be more appropriate due to short of breath holding times. Chest X-Ray 04/23/24 09:16 IMPRESSION: See above Chest/Abdomen/Pelvis CT 04/24/24 08:31 IMPRESSION: 1. Similar-appearing mixed attenuation LEFT chest wall hematoma. 2. Small RIGHT and tiny LEFT pleural effusions. 3. Stable findings of acute pancreatitis as previously described. No drainable fluid collections. No evidence of pancreatic necrosis. 4. Marked hepatomegaly with diffuse fatty filtration of the liver. Splenomegaly. 5. No evidence of retroperitoneal hematoma. 6. Intramuscular hematoma within the RIGHT gluteus musculature measuring 6.4 x 4.1 cm with a small amount of increased attenuation blood products. 7. Stable enhancing lesion in the RIGHT hepatic lobe measuring 2.3 cm may represent a hemangioma. 8. Stable lytic lesion/lucencies in the bony pelvis more prominent in the iliac wings. 9. Hydropic fluid distended gallbladder. Notified Troy Hopson MD at 04/24/2024 10:13 AM. Laboratory Results WBC 8.18 10^3/uL (3.29-11.43) 04/20/24 17:43 RBC 3.03 10^6/uL (3.85-5.65) L 04/20/24 17:43 Hgb 10.50 g/dL (11.27-16.99) L 04/20/24 17:43 Hct 28.4 % (37-53) L 04/20/24 17:43 MCV 93.7 fl (82-101) 04/20/24 17:43 MCH 34.7 pg (27-33) H 04/20/24 17:43 MCHC 37.0 g/dL (30-55) 04/20/24 17:43 RDW 14.6 % (12.1-15.1) 04/20/24 17:43 Plt Count 41 10^3/cmm (157-399) L 04/20/24 17:43 MPV 11.0 fL (7.4-10.4) H 04/20/24 17:43 Neut % (Auto) 82.4 % 04/20/24 17:43 Lymph % (Auto) 7.2 % 04/20/24 17:43 Starke % (Auto) 9.8 % 04/20/24 17:43 Eos % (Auto) 0.0 % 04/20/24 17:43 Baso % (Auto) 0.2 % 04/20/24 17:43 Neut # (Auto) 6.74 10^3/uL (1.8-7.7) 04/20/24 17:43 Lymph # (Auto) 0.6 10^3/uL (0.8-4.8) L 04/20/24 17:43 Starke # (Auto) 0.8 10^3/uL (0.2-0.9) 04/20/24 17:43 Eos # (Auto) 0.0 10^3/uL (0.0-0.8) 04/20/24 17:43 Baso # (Auto) 0.0 10^3/uL (0.0-0.1) 04/20/24 17:43 Nucleated RBC % (auto) 0 % 04/20/24 17:43 Nucleated RBCs # 0.0 /100WBC 04/20/24 17:43 PT 22.60 SECONDS (12.1-14.9) H 04/20/24 17:43 INR 1.91 (0.8-1.2) H 04/20/24 17:43 APTT 48.7 SECONDS (23.9-36.7) H 04/20/24 17:43 Sodium 122 mmol/L (136-145) L 04/20/24 17:43 Potassium 3.5 mmol/L (3.5-5.1) 04/20/24 17:43 Chloride 83 mmol/L (98-107) L 04/20/24 17:43 Carbon Dioxide 19 mmol/L (22-29) L 04/20/24 17:43 Anion Gap 23.5 (5-19) H 04/20/24 17:43 BUN 5 mg/dL (6-20) L 04/20/24 17:43 Creatinine 0.5 mg/dL (0.7-1.2) L 04/20/24 17:43 GFR Calculation 191.5 mL/min (90-130) H 04/20/24 17:43 Glucose 111 mg/dL (65-115) 04/20/24 17:43 Serum Osmolality 328 mOsm/kg (278-305) H 04/20/24 06:07 Calculated Osmolality 252 mOsm/kg (285-295) L 04/20/24 17:43 Lactic Acid 4.1 mmol/L (0.5-2.2) H* 04/20/24 17:43 Calcium 7.8 mg/dL (8.5-10.5) L 04/20/24 17:43 Phosphorus 2.3 mg/dL (2.5-4.5) L 04/20/24 17:43 Magnesium 1.5 mg/dL (1.7-2.3) L 04/20/24 17:43 Total Bilirubin 11.6 mg/dL (0.15-1.2) H* 04/20/24 17:43 AST 286 U/L (0-40) H 04/20/24 17:43 ALT 100 U/L (0-41) H 04/20/24 17:43 Alkaline Phosphatase 295 U/L (40-130) H 04/20/24 17:43 Ammonia 59 umol/L (16-60) 04/20/24 17:43 Total Protein 6.8 g/dL (6.6-8.7) 04/20/24 17:43 Albumin 3.5 g/dL (3.5-5.2) 04/20/24 17:43 Globulin 3.3 g/dL (1.3-4.6) 04/20/24 17:43 Lipase 598 U/L (13-60) H 04/20/24 17:43 Procalcitonin 0.26 ng/mL (0-0.5) 04/20/24 17:43 Urine Color Sutton (Yellow) A 04/20/24 05:45 Urine Appearance Cloudy (CLEAR) A 04/20/24 05:45 Urine pH 7 (5-7) 04/20/24 05:45 Ur Specific [place] 1.010 (1.005-1.030) 04/20/24 05:45 Urine Protein Trace (Negative) 04/20/24 05:45 Urine Glucose (UA) Norm (Normal) 04/20/24 05:45 Urine Ketones 2+ (Negative) H 04/20/24 05:45 Urine Blood 2+ (Negative) H 04/20/24 05:45 Urine Nitrate Negative (Negative) 04/20/24 05:45 Urine Bilirubin 2+ (Negative) H 04/20/24 05:45 Urine Urobilinogen 1 mg/dL (Negative) H 04/20/24 05:45 Ur Leukocyte Esterase Negative (Negative) 04/20/24 05:45 Urine RBC 5-10 /hpf (0-2) H 04/20/24 05:45 Urine WBC 5-10 /hpf (0-5) H 04/20/24 05:45 Ur Squamous Epith Cells 0-4 /hpf (0-5) H 04/20/24 05:45 Amorphous Sediment Not Reportable 04/20/24 05:45 Urine Bacteria 1+ /hpf (NONE) H 04/20/24 05:45 Urine Osmolality 442 mOsm/kg (50-1200) 04/20/24 05:45 Ur Random Sodium 14 mmol/L 04/20/24 05:45 Urine Opiates Screen Positive ng/mL (Negative) H 04/20/24 05:45 Ur Barbiturates Screen Negative ng/mL (Negative) 04/20/24 05:45 Ur Phencyclidine Scrn Negative ng/mL (Negative) 04/20/24 05:45 Ur Amphetamines Screen Negative ng/mL (Negative) 04/20/24 05:45 U Benzodiazepines Scrn Negative ng/mL (Negative) 04/20/24 05:45 Urine Cocaine Screen Negative ng/mL (Negative) 04/20/24 05:45 U Marijuana (THC) Screen Negative ng/mL (Negative) 04/20/24 05:45 Ethyl Alcohol 467 mg/dL (0-10) H* 04/20/24 17:43 Discharge Plan Discharge Patient Disposition: Admitted As Inpatient Admit Provider: Elizabeth Ramey Clinical Impression: Advanced cirrhosis of liver Acute alcoholic pancreatitis Qualifiers: Acute pancreatitis complication: unspecified Qualified Code(s): K85.20 - Alcohol induced acute pancreatitis without necrosis or infection Condition: Stable Coding Level of Care Code ED Curing Pickling Packer for Al Duran
[2024-04-20] MEDS: sodium chloride 0.9% 1,000 ML 999 ML IV (19:15)
[2024-04-20] MEDS: iohexol 350 mg/mL 500 mL Btl (per mL) IV (19:16)
[2024-04-20 19:27] VITALS: PULSE 105; RESP 18; O2SAT 99
[2024-04-20 20:46] LABS: Lipase 598 U/L (13-60)
[2024-04-20 21:40] VITALS: BP 116/67; PULSE 99; RESP 18; O2SAT 100
--- NOTE | 2024-04-20 22:16 | PC.NURSE ---
Patient states that he would never kill hisself because he is [employer] and doesn't want to go to hell.
--- NOTE | 2024-04-20 22:17 | P.HP_ITS ---
Providers/Chief Complaint 2 Admitting Physician: Elizabeth Ramey MD Primary Care Provider: Antonio Alvarado MD Chief Complaint: BACK PAIN S/P FALL History of Present Illness Buddy Cowan is a 33 year old male With past medical history of alcohol related liver cirrhosis, lytic lesion of bony pelvis no diagnosis of malignancy, alcohol abuse, jaundice, chest wall hematoma requiring transfer to higher level of care presented to the hospital today by ambulance complaining of diffuse pain and multiple falls recently. Patient intoxicated with alcohol at this time. He was last seen on for similar complaints and did drive intoxicated at that time as well. He does have rib fractures on the left side from December 2023 that resulted in hematoma formation. He has not been able to obtain pain medication since last 1 week secondary to insurance issues. Apparently patient was on Dilaudid 2 mg twice a day as per the ?. Patient does not answer when asked if he has any plans to quit drinking. He does state he drinks wine every day. He cannot quantify how much he drinks. Spouse states he has been falling and having multiple injuries to back and buttock region. Today he was dizzy while taking a shower and fell and hit the back of his head. He has not seen a aviation program manager recently. They state they have an appointment upcoming in August. He has seen them in the past however. Patient is on lactulose at home. He states he is allergic to omeprazole however does okay with pantoprazole and would like his medication switched. In ER today found to be hyponatremic sodium 122, thrombocytopenic platelet count 41, potassium 3.5, total bilirubin 11.6 which was similar to previous admission as well with elevated AST ALT similar to prior admission with blood alcohol level 467 today. Lipase elevated at [address] abdomen pelvis shows acute pancreatitis no drainable fluid collection or necrosis or hemorrhage. Questionable 1.8 x 1.8 cm low-density area in pancreatic head. Consider MRI to exclude underlying mass lesion upon resolution of patient's acute clinical illness. I does show a partially visualized resolving hematoma in the left pectoral region. Medications/Allergies Home Medications Medication Instructions Recorded Confirmed Last Taken Type clonidine HCl 0.1 mg tablet 0.1 mg PO BID PRN Blood Pressure 09/05/23 04/20/24 Unknown Rx #60 tabs omeprazole 40 mg capsule,delayed 40 mg PO DAILY #90 caps 10/03/23 04/05/2424 Rx release hydromorphone 2 mg tablet 2 mg PO Q6H PRN Pain, Severe 04/05/24 04/05/24 Unknown History lactulose 10 gram/15 mL oral 15 ml PO BID 04/05/24 04/05/24 04/05/24 History solution lisinopril 20 mg tablet 20 mg PO BID 04/05/24 04/05/24 04/04/24 History naltrexone 50 mg tablet 50 mg PO DAILY 04/05/24 04/05/24 Unknown History Allergies Allergy/AdvReac Type Severity Reaction Status Date / Time aspirin Allergy Unknown ADR-Gastrointestinal Verified 11/29/23 17:56 Upset NSAIDS (Non-Steroidal Allergy Unknown Unknown Verified 04/20/24 22:29 Anti-Inflamma acetaminophen [From Tylenol] Allergy ADR-Gastrointestinal Verified 11/29/23 17:56 Upset naproxen [From Aleve] Allergy Unknown Verified 04/20/24 22:28 omeprazole Allergy ADR-Gastrointestinal Verified 04/20/24 22:30 Upset zolpidem [From Ambien] Allergy ADR-Nightma Verified 11/29/23 17:56 re buspirone AdvReac Intermediate ADR-Anxiety Verified 11/29/23 17:56 meat Allergy ADR-Nausea Uncoded 04/20/24 22:28 PFSH Acute 2 PFSH: Medical History (Updated 04/20/24 @ 22:26 by Elizabeth Ramey MD) High anion gap metabolic acidosis Alcoholic gastritis Alcoholism Thrombocytopenia Chronic hyponatremia Transaminitis Chronic nausea Gynecomastia, male Panic attack Acute on chronic pancreatitis Hyperlipidemia Anxiety and depression GERD (gastroesophageal reflux disease) Hypertension Acute posttraumatic stress disorder Surgical History No pertinent past surgical history Family History Father Hypertension Social History Smoking and tobacco/nicotine status: never used tobacco/nicotine Alcohol intake: current Alcohol intake frequency: 0-2 Drinks per Day Substance/Drug Use: never Marital status: Number of children: 5 Current occupational status: employed Current gender identity: Male Vitals/I&O/Wt Last Vital Signs Temp 97.9 F 04/20/24 17:21 Pulse 99 07/13/24 21:40 Resp 18 04/20/24 21:40 BP 116/67 04/20/24 21:40 Pulse Ox 100 04/20/24 21:40 O2 Del Method Room Air 04/20/24 21:40 04/20/24 04/20/24 04/20/24 06:59 14:59 22:59 Intake Total 1000 / 1000 Balance 1000 / 1000 Weight last 48 hrs Weight 86.046 kg Weight 81.647 kg Physical Exam 2 Narrative: General: Alert oriented x3, patient seen laying in bed with at bedside. Disheveled appearance. Gingival hyperplasia present. Scleral icterus present. Dry mucosal membranes. HEENT: Normocephalic, atraumatic, EOMI, breathing room air, no acute respiratory distress. Cardio: Regular rate rhythm, normal S1-S2 Respiratory: Clear to auscultation bilaterally GI: Abdomen soft however significantly tender to palpation around epigastric region, no apparent guarding present. Bowel sounds positive. Behavior: Appears depressed. Extremities: No edema bilateral lower extremities. Data 04/20/24 17:43 04/20/24 17:43 A&P Assessment and plan (1) Alcohol intoxication: (2) Hypertension: (3) Jaundice: (4) Transaminitis: (5) Advanced cirrhosis of liver: (6) Acute alcoholic pancreatitis: Qualifiers: Acute pancreatitis complication: unspecified Qualified Code(s): K85.20 - Alcohol induced acute pancreatitis without necrosis or infection (7) Chest wall hematoma: (8) High anion gap metabolic acidosis: (9) Hypokalemia: Plan #Acute pancreatitis #1.8 cm possible mass at pancreatic head? #Advance liver cirrhosis #Acute alcohol intoxication #Alcohol abuse #Thrombocytopenia, hyponatremia most likely secondary to above #Resolving chest wall hematoma #Falls secondary to alcoholic ataxia? Prior rib fractures #Transaminitis, elevated INR secondary to liver cirrhosis ? Continue lactulose 15 twice daily ? Placed on Protonix 40 IV daily ? Strict n.p.o. at this time - NO Clear liquid either ? Placed on LR 150 cc/h ? Hydralazine 10 every 4 hours as needed for high blood pressure - Patient will need MRI abdomen to further investigation pancreatic head mass? ? Placed on CIWA protocol ? Discussed with patient regarding abstaining from alcohol. ? Will need to follow-up with a aviation program manager after discharge. ? Suspect depression. Will need to discuss with patient and he agrees may start on antidepressant. ? Will check CT head without contrast at this time ? Check urine drug screen ? Recheck CBC CMP in a.m. ? Check magnesium level now ? Order IV potassium for patient ? Anion gap elevated most likely secondary to starvation ketosis ? Check ketones ? Check urine sodium, urine, serum osmolality. Full code Due to prophylaxis: SCDs Attestations 2 Medical Necessity Statement*: Greater than 2 midnight stay for management of acute pancreatitis Diagnoses Alcohol intoxication F10.929 Hypertension I10 Jaundice R17 Transaminitis R74.01 Advanced cirrhosis of liver K74.60 Acute alcoholic pancreatitis K85.20 Acute pancreatitis complication: unspecified Chest wall hematoma S20.219A High anion gap metabolic acidosis E87.29 Hypokalemia E87.6
--- NOTE | 2024-04-20 22:23 | PC.NURSE ---
Patient states he is having frequent, loose bowel movements due to taking Lactulose. He states I take Lactulose so I pee everytime I poop.
--- NOTE | 2024-04-20 22:25 | PC.NURSE ---
Patient refusing gown.
--- NOTE | 2024-04-20 22:27 | CTR_ITS ---
PROCEDURE INFORMATION: Exam: CT Head Without Contrast Exam date and time: 04/21/2024 12:08 AM Age: 33 years old Clinical indication: Injury or trauma; Blunt trauma (contusions or hematomas); Patient HX: Patient sustained a fall yesterday. ETOH over 400. TECHNIQUE: Imaging protocol: Computed tomography of the head without contrast. Radiation optimization: All CT scans at this facility use at least one of these dose optimization techniques: automated exposure control; mA and/or kV adjustment per patient size (includes targeted exams where dose is matched to clinical indication); or iterative reconstruction. COMPARISON: CT head wo con* [id number] 12/13/2023 11:32 AM RADIATION DOSE METRICS: Total DLP (mGy-cm): 1021.48 FINDINGS: Brain: No evidence for acute intracranial hemorrhage, mass effect, or acute infarct by CT. [id number] generalized cerebral atrophy again noted which is more advanced than is usually seen in a patient of this age. Mild presumed chronic small-vessel ischemic changes in the cerebral white matter. Cerebral ventricles: No ventriculomegaly. Paranasal sinuses: Visualized sinuses are unremarkable. No fluid levels. Mastoid air cells: Visualized mastoid air cells are well aerated. Bones: Unremarkable. No acute fracture. Soft tissues: Unremarkable. CT/CT head wo con* [id number] IMPRESSION: No acute intracranial abnormality.
[2024-04-20 22:28] VITALS: BP 105/65; PULSE 107; RESP 17; TEMP 36.7; O2SAT 98
--- NOTE | 2024-04-20 22:47 | PC.NURSE ---
Eyes are jaundice.
[2024-04-20 22:53] LABS: Magnesium 1.5 mg/dL (1.7-2.3); Phosphorus 2.3 mg/dL (2.5-4.5)
[2024-04-20 22:55] LABS: Lactic Sepsis W/Reflex 4.1 mmol/L (0.5-2.2)
[2024-04-20 23:00] LABS: Procalcitonin 0.26 ng/mL (0-0.5)
[2024-04-20 23:07] VITALS: RESP 16
[2024-04-20] MEDS: HYDROmorphone 1 mg/mL INJ 1 mL IVP (23:07)
[2024-04-20] MEDS: pantoprazole 40 mg SDV IVP (23:13)
[2024-04-20 23:56] LABS: Lactate (Lactic Acid level) 2.7 mmol/L (0.5-2.2)
[2024-04-21] VITALS (108 sets, daily range): BP systolic 105–144; BP diastolic 65–93; PULSE 101–146; RESP 11–24; TEMP 36.6–37.1; O2SAT 94–99
[2024-04-21 00:26] LABS: Reflex Lactate Order REFLEX LACTIC ORDERD
[2024-04-21] MEDS: potassium chloride premix 100 ML 25 MEQ IV (00:27)
[2024-04-21] MEDS: lactated ringers 1,000 ML 150 ML IV ×3 (00:27→23:38)
[2024-04-21] MEDS: HYDROmorphone 1 mg/mL INJ 1 mL IVP ×4 (03:15→21:00)
[2024-04-21 06:05] LABS: Add Urine Microscopic? YES; Bilirubin Urine 2+ (Negative); Blood Urine 2+ (Negative); Glucose Urine UA Norm (Normal); Ketones Urine 2+ (Negative); Leukocyte Esterase Urine Negative (Negative); Nitrate Urine Negative (Negative); Protein Urine Trace (Negative); Urine Appearance Cloudy (CLEAR); Urine Color Orange (Yellow); Urobilinogen Urine 1 mg/dL (Negative); pH Urine 7 (5-7)
[2024-04-21 06:06] LABS: Bacteria Urine 1+ /hpf; Squamous Epithelial Cell Urine 0-4 /hpf (0-5)
[2024-04-21 06:08] LABS: Amphetamines Screen Urine Negative (Negative); Barbiturates Screen Urine Negative (Negative); Benzodiazepines Screen Urine Negative (Negative); Cocaine Screen Urine Negative (Negative); Opiate Screen Urine Positive (Negative); PCP Screen Urine Negative (Negative); THC Screen Urine Negative (Negative)
[2024-04-21 06:16] LABS: Urine Random Sodium 14 mmol/L
[2024-04-21 06:21] LABS: Basophils % 0.2 %; Eosinophils % 0.1 %; Hematocrit 24.7 % (37-53); Lymphocytes # 0.9 10^3/uL (0.8-4.8); Mean Corpuscular HGB Conc 37.2 g/dL (30-55); Mean Corpuscular Volume 93.9 fl (82-101); Mean Platelet Volume 10.4 fL (7.4-10.4); Monocytes # 0.8 10^3/uL (0.2-0.9); Monocytes % 9.5 %; Neutrophils # 6.31 10^3/uL (1.8-7.7); Neutrophils % 78.7 %; Nucleated Red Blood Cells % 0 %; Platelet Count 37 10^3/cmm (157-399); Red Blood Count 2.63 10^6/uL (3.85-5.65); Red Cell Distribution Width 14.7 % (12.1-15.1); White Blood Count 8.02 10^3/uL (3.29-11.43)
[2024-04-21 06:38] LABS: Lactic Acid level (Lactate) 2.1 mmol/L (0.5-2.2)
[2024-04-21 06:39] LABS: Alanine Aminotransferase 96 U/L (0-41); Albumin Level 3.2 g/dL (3.5-5.2); Alkaline Phosphatase 290 U/L (40-130); Anion Gap 22.5 (5-19); Aspartate Amino Transferase 276 U/L (0-40); Blood Urea Nitrogen 6 mg/dL (6-20); Calcium 7.7 mg/dL (8.5-10.5); Carbon Dioxide 19 mmol/L (22-29); Chloride 87 mmol/L (98-107); Globulin 3.4 g/dL (1.3-4.6); Glomerular Filtration Rate 191.5 mL/min (90-130); Glucose 80 mg/dL (65-115); Magnesium 1.5 mg/dL (1.7-2.3); Osmolality Calculated 257 mOsm/kg (285-295); Phosphorus 2.1 mg/dL (2.5-4.5); Potassium 3.5 mmol/L (3.5-5.1); Sodium 125 mmol/L (136-145); Total Protein 6.6 g/dL (6.6-8.7)
[2024-04-21 06:40] LABS: Creatinine Clr Calc Pharmacy 243.6021
[2024-04-21 06:50] LABS: INR 1.95 (0.8-1.2)
[2024-04-21] MEDS: folic acid 1 mg Tablet PO (08:34)
[2024-04-21] MEDS: multivitamin therapeutic Tablet 1 TAB PO (08:34)
[2024-04-21] MEDS: thiamine 100 mg Tablet PO (08:34)
[2024-04-21] MEDS: magnesium sulfate premix 1 GM/100 ML PIGGYBACK IV (09:36)
[2024-04-21] MEDS: ondansetron 2 mg/ML SDV 2 mL 4 MG IVP ×2 (10:15→16:22)
[2024-04-21] MEDS: LORazepam 2 mg/mL INJ 1 mL IVP ×3 (10:16→18:20)
--- NOTE | 2024-04-21 11:23 | PC.NURSE ---
Per Dr. Hopson, do not administer phenobarbital as he has concerns about his liver function.
--- NOTE | 2024-04-21 11:24 | PC.NURSE ---
Per [facility]ER, pt refused to be put on tele.
--- NOTE | 2024-04-21 12:59 | PC.NURSE ---
Pt safely transported to ICU1 by this nurse at 1250. OLIMPIA Padron assumed care of pt at this time.
--- NOTE | 2024-04-21 13:25 | PC.NURSE ---
received patient from [facility] staff at 1250. Patient is oriented to person, place, time, and situation. HR: 108, BP: 134/84, SPO2: 97, Temp: 98.2, RR: 16. Patient complains of severe pain 10/10 whole body for which Dilaudid was administered. Shortly after dilaudid administration, patient is somewhat lethargic, but still oriented, adequate respiratory rate, and protecting his airway. He Requested ativan. Nurse advised he will not be receiving ativan at this time, due to his lethargy it would not be safe to do so. CIWA scores also does not indicate ativan at this time.
[2024-04-21 13:29] LABS: Glucose Point of Care 86 mg/dL (70-110)
[2024-04-21 13:43] LABS: Alanine Aminotransferase 97 U/L (0-41); Albumin Level 3.2 g/dL (3.5-5.2); Alkaline Phosphatase 293 U/L (40-130); Anion Gap 24.5 (5-19); Aspartate Amino Transferase 280 U/L (0-40); Blood Urea Nitrogen 6 mg/dL (6-20); Calcium 7.7 mg/dL (8.5-10.5); Carbon Dioxide 17 mmol/L (22-29); Chloride 88 mmol/L (98-107); Globulin 3.1 g/dL (1.3-4.6); Glomerular Filtration Rate 191.5 mL/min (90-130); Glucose 85 mg/dL (65-115); Magnesium 1.7 mg/dL (1.7-2.3); Osmolality Calculated 259 mOsm/kg (285-295); Potassium 3.5 mmol/L (3.5-5.1); Sodium 126 mmol/L (136-145); Total Protein 6.3 g/dL (6.6-8.7)
[2024-04-21 13:44] LABS: Creatinine Clr Calc Pharmacy 243.6021
[2024-04-21 13:45] LABS: Total Bilirubin 12.9 mg/dL (0.15-1.2)
--- NOTE | 2024-04-21 17:11 | P.PN_ITS ---
Subjective 2 Subjective: Patient was seen this morning, he has severe intractable nausea, vomiting, is alert to person, to place, not to time he follows commands, he tells me that he was recently transferred to [place], because he had fallen and he developed a significant chest wall hematoma that required coil embolization, he continues to have pain in that location he tells me, he has also had multiple falls, with reported rib fractures, he tells me that he continues to drink, as he is having insurance issues, Vitals/I&O/Wt Last Vital Signs Temp 98.3 F 04/21/24 11:58 Pulse 118 H 04/21/24 13:46 Resp 16 04/21/24 13:07 BP 116/75 04/21/24 11:58 Pulse Ox 97 04/21/24 13:07 O2 Del Method Room Air 04/21/24 11:58 04/21/24 04/21/24 04/21/24 06:59 14:59 22:59 Intake Total 997.5 / 1997.5 572.5 / 572.5 Output Total 900 / 900 1000 / 1000 Balance 97.5 / 1097.5 -427.5 / -427.5 Weight last 48 hrs Weight 85.049 kg Weight 86.046 kg Weight 81.647 kg Physical Exam 2 Const: COMMON NORMALS: no acute distress and patient oriented x3 OTHER: Jaundice appearing, scleral icterus, Chest: OTHER: Left chest wall, left pectoral hematoma slightly erythematous,'s more swollen, has increased warmth, will ensure that he does not have an infection of this location, will do CT of the chest, inflammatory marker started on antibiotics Resp: COMMON NORMALS: normal respiratory effort, No retractions, No use of accessory muscles and clear to auscultation bilaterally AUSCULTATION: clear to auscultation bilaterally Cardio: COMMON NORMALS: regular rhythm, S1 normal heart sound present and S2 normal heart sound present RATE: tachycardic RHYTHM: regular rhythm H EART SOUNDS: S1 normal heart sound present and S2 normal heart sound present GI: OTHER: Abdomen soft, distended, no fluid wave present, no guarding, no rebound, rigidity, does have diffuse tenderness Extremity: COMMON NORMALS: no pedal edema Neuro: COMMON NORMALS: patient oriented x3 Psych: COMMON NORMALS: mental status grossly normal Data 04/21/24 06:07 04/21/24 13:13 A&P Assessment and plan (1) Alcohol intoxication: (2) Hypertension: (3) Jaundice: (4) Transaminitis: (5) Advanced cirrhosis of liver: (6) Acute alcoholic pancreatitis: Qualifiers: Acute pancreatitis complication: unspecified Qualified Code(s): K85.20 - Alcohol induced acute pancreatitis without necrosis or infection (7) Chest wall hematoma: (8) High anion gap metabolic acidosis: (9) Hypokalemia: (10) Acute hepatic failure: Plan #Acute pancreatitis #1.8 cm possible mass at pancreatic head? 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 Prior rib fractures -Transaminitis -elevated INR secondary to liver cirrhosis -Hyperbilirubinemia ? Hypoalbuminemia ? Hyponatremia ? Continue lactulose 15 twice daily ? Placed on Protonix 40 IV daily ? Strict n.p.o. at this time ? Placed on LR 150 cc/h ? Hydralazine 10 every 4 hours as needed for high blood pressure - Patient will need MRI abdomen to further investigation pancreatic head mass? ? Placed on CIWA protocol ? Discussed with patient regarding abstaining from alcohol. ? Will need to follow-up with a professor of apologetics after discharge. ? Suspect depression. Will need to discuss with patient and he agrees may start on antidepressant. ? Will check CT head without contrast at this time ? Anion gap elevated most likely secondary to starvation ketosis ?Alcohol levels 467, CIWA protocol, monitor for severe alcohol withdrawals ? Increased anion gap metabolic acidosis, likely secondary to starvation ketosis, ? Zofran, Reglan ? Monitor for for severe alcohol withdrawals -Monitor chest wall hematoma site, start vancomycin, cefepime, ultrasound chest wall Full code Due to prophylaxis: SCDs, anticoagulation relatively contraindicated given thrombocytopenia, anemia, liver cirrhosis Attestations 2 Medical Necessity Statement*: Patient requires hospitalization for severe pancreatitis, acute decompensated liver failure, alcoholism, alcohol withdrawal, thrombocytopenia, hyponatremia, hyperbilirubinemia, increased anion gap metabolic acidosis, starvation ketosis, Concerns for infection of left chest wall hematoma Diagnoses Alcohol intoxication F10.929 Hypertension I10 Jaundice R17 Transaminitis R74.01 Advanced cirrhosis of liver K74.60 Acute alcoholic pancreatitis K85.20 Acute pancreatitis complication: unspecified Chest wall hematoma S20.219A High anion gap metabolic acidosis E87.29 Hypokalemia E87.6 Acute hepatic failure K72.00
--- NOTE | 2024-04-21 17:20 | USR_ITS ---
PROCEDURE INFORMATION: Exam: US Chest, Soft Tissue Exam date and time: 04/21/2024 6:30 PM Age: 33 years old Clinical indication: Mass, lump, or swelling in the chest; Patient HX: Fell down stairs December 2023; Additional info: Left chest wall hematoma, infection? TECHNIQUE: Imaging protocol: Real time ultrasound of the chest was performed with image documentation. Exam focused on the soft tissue. COMPARISON: CT chest w con* [id number] 04/05/2024 9:33 AM FINDINGS: Soft tissues: Apparent subcutaneous complex hematoma measuring 5 x 2 cm in the left anterior chest, underlying infection is not excluded based on imaging alone. US/US chest [id number] IMPRESSION: Apparent subcutaneous complex hematoma measuring 5 x 2 cm in the left anterior chest, underlying infection is not excluded based on imaging alone.
[2024-04-21 17:39] LABS: Erythrocyte Sedimentation Rate 28 mm/hr (0-10)
[2024-04-21] MEDS: vancomycin 1,750 MG/350 ML PIGGYBACK 233.33 MG IV (17:46)
[2024-04-21] MEDS: cefepime 1,000 mg SDV 1000 MG IVP (17:46)
[2024-04-21 18:05] LABS: C Reactive Protein 40.6 mg/L (0.0-4.9)
[2024-04-21] MEDS: metroNIDAZOLE IV 500 MG/100 ML PREMIX 100 MG IV (18:08)
[2024-04-21] MEDS: pantoprazole 40 mg SDV IVP (22:02)
[2024-04-22] VITALS (198 sets, daily range): BP systolic 113–148; BP diastolic 67–93; PULSE 99–146; RESP 10–23; TEMP 36.9–37.1; O2SAT 91–100
[2024-04-22] MEDS: metoclopramide 5 mg/mL SDV 2 mL IVP ×3 (00:43→22:41)
[2024-04-22] MEDS: LORazepam 2 mg/mL INJ 1 mL IVP (00:44)
[2024-04-22] MEDS: metroNIDAZOLE IV 500 MG/100 ML PREMIX 100 MG IV ×3 (00:44→18:32)
[2024-04-22] MEDS: vancomycin 1,750 MG/350 ML PIGGYBACK 233.33 MG IV ×2 (02:49→22:41)
[2024-04-22 04:20] LABS: Basophils % 0.4 %; Eosinophils % 0.1 %; Lymphocytes # 0.3 10^3/uL (0.8-4.8); Lymphocytes % 4.2 %; Mean Corpuscular HGB Conc 35.7 g/dL (30-55); Mean Corpuscular Hemoglobin 34.7 pg (27-33); Mean Corpuscular Volume 97.5 fl (82-101); Mean Platelet Volume 9.8 fL (7.4-10.4); Monocytes # 0.8 10^3/uL (0.2-0.9); Monocytes % 12.1 %; Neutrophils # 5.71 10^3/uL (1.8-7.7); Neutrophils % 82.6 %; Nucleated Red Blood Cells % 0 %; Platelet Count 33 10^3/cmm (157-399); Red Blood Count 2.36 10^6/uL (3.85-5.65); Red Cell Distribution Width 15.4 % (12.1-15.1); White Blood Count 6.92 10^3/uL (3.29-11.43)
[2024-04-22 04:36] LABS: Alanine Aminotransferase 89 U/L (0-41); Albumin Level 3.2 g/dL (3.5-5.2); Alkaline Phosphatase 263 U/L (40-130); Anion Gap 22.3 (5-19); Aspartate Amino Transferase 259 U/L (0-40); Blood Urea Nitrogen 9 mg/dL (6-20); C Reactive Protein 52.4 mg/L (0.0-4.9); Calcium 8.2 mg/dL (8.5-10.5); Carbon Dioxide 18 mmol/L (22-29); Chloride 91 mmol/L (98-107); Creatinine Clr Calc Pharmacy 243.6021; Globulin 2.7 g/dL (1.3-4.6); Glomerular Filtration Rate 191.5 mL/min (90-130); Glucose 96 mg/dL (65-115); Lactate (Lactic Acid level) 1.5 mmol/L (0.5-2.2); Magnesium 1.5 mg/dL (1.7-2.3); Osmolality Calculated 265 mOsm/kg (285-295); Phosphorus 1.5 mg/dL (2.5-4.5); Potassium 3.3 mmol/L (3.5-5.1); Sodium 128 mmol/L (136-145); Total Protein 5.9 g/dL (6.6-8.7)
[2024-04-22 04:37] LABS: Ammonia 75 umol/L (16-60)
[2024-04-22] MEDS: cefepime 1,000 mg SDV 1000 MG IVP ×2 (04:40→18:30)
[2024-04-22 04:41] LABS: INR 2.18 (0.8-1.2)
[2024-04-22 04:46] LABS: Total Bilirubin 13.9 mg/dL (0.15-1.2)
[2024-04-22 05:01] LABS: NT Pro B Type Natriuretic Pept 77 pg/mL (0-125)
[2024-04-22 05:10] LABS: Creatine Phosphokinase 68 U/L (39-308)
[2024-04-22 05:46] LABS: Procalcitonin 0.61 ng/mL (0-0.5)
[2024-04-22] MEDS: HYDROmorphone 1 mg/mL INJ 1 mL IVP ×4 (05:48→20:19)
[2024-04-22] MEDS: lactated ringers 1,000 ML 150 ML IV ×2 (07:16→18:33)
--- NOTE | 2024-04-22 08:26 | MR_ITS ---
WS: [id number] MRCP (MAGNETIC RESONANCE CHOLANGIOPANCREATOGRAPHY) HISTORY: pancreatic head mass COMPARISON: 03/23/2023, CT 04/20/2024 TECHNIQUE: Multiple sequences are performed to evaluate the intra and extrahepatic ducts. This study is performed without IV contrast and targeted to evaluate the hepatic and pancreatic ducts . Liver is markedly enlarged with heterogeneity and signal variability. Previously described mass in the inferior RIGHT lobe measures 2.0 x 1.9 cm and is of increased signal on the T2 sequences probably representing hemangioma. Additional variable signal throughout the liver cannot be further character ized. Please note patient was unable to hold his breath during this examination and there is signific ant motion artifact. The common bile duct is not dilated. Gallbladder is very minimally hydropic with a small amount of ad jacent pericholecystic fluid. There is a small amount of fluid along the paracolic gutter. Common uriel e duct is normal at 4 mm. The pancreas is slightly enlarged and edematous. Very slight variable signal in the pancreatic head. No discrete mass identified but this study is not targeted to the pancreatic head and no contrast was given. Mild edematous changes throughout the pancreas as noted on a recent CT. No adrenal mass. Kidneys are normal size. No obstruction. Normal size spleen. MR/MR MRCP [id number] IMPRESSION: 1. Study is compromised by motion artifact. Patient was unable to hold his donovan ath for this examination. 2. Normal common bile duct. 3. Minimally hydropic gallbladder with a small amount of adjacent fluid. There is fluid extending into the paracolic gutter and also surrounding the pancreas from pancreatitis. This is only a small amount of fluid. 4. Pancreatic head is mildly enlarged and edematous. MRCP examination is not t argeted to evaluate the pancreas for mass. As patient is unable to hold his donovan ath for this examination or cooperate recommend follow-up dedicated MRI of the pancreas with and without contrast when the patient is clinically able to coope rate. Otherwise short-term follow-up by CT, multiphase, may be more appropriate due to short of breath holding times.
[2024-04-22] MEDS: folic acid 1 mg Tablet PO (10:02)
[2024-04-22] MEDS: lactulose oral liq 20 gm/30 mL UDC PO ×2 (10:02→20:19)
[2024-04-22] MEDS: multivitamin therapeutic Tablet 1 TAB PO (10:02)
[2024-04-22] MEDS: vancomycin 1,750 MG/350 ML PIGGYBACK 167 MG IV (10:05)
[2024-04-22] MEDS: magnesium sulfate premix 1 GM/100 ML PIGGYBACK IV (10:05)
[2024-04-22] MEDS: ondansetron 2 mg/ML SDV 2 mL 4 MG IVP (10:24)
[2024-04-22] MEDS: potassium phosphate (mEq K) 40 MEQ in sodium chloride 0.9% (100 ml) 100 ML 27.27 MEQ IV (11:20)
--- NOTE | 2024-04-22 14:53 | P.PN_ITS ---
Subjective 2 Subjective: - Patient was seen this morning ? is at bedside, we discussed his blood wor - he has evidence of acute liver failure , decompensated liver failure with elevated bilirubin and transaminitis elevated ammonia levels elevated INR, thrombocytopenia, hypoalbuminemia, although his creatinine is in reasonable range -He admits drinking alcohol ? We will have to monitor him very closely, he does complain of left arm swelling, he had an IV in that site, we discussed given his elevated INR he is a high risk of developing edema and swelling, advised to keep left arm elevated, warm compress, on examination of left arm is diffusely swollen, -We discussed replacing his electrolytes -Will discuss patient's case with hepato logy at [place] Vitals/I&O/Wt Last Vital Signs Temp 98.8 F 04/22/24 08:00 Pulse 122 H 04/22/24 13:15 Resp 14 04/22/24 13:15 BP 142/83 04/22/24 13:15 Pulse Ox 96 04/22/24 13:15 O2 Del Method Room Air 04/21/24 16:00 04/21/24 04/22/24 04/22/24 22:59 06:59 14:59 Intake Total 570 / 1670.0 1570 / 3240.0 660 / 660 Output Total 600 / 1600 Balance 570 / 670.0 970 / 1640.0 660 / 660 Weight last 48 hrs Weight 83.461 kg Weight 85.049 kg Weight 86.046 kg Weight 81.647 kg Physical Exam 2 Const: COMMON NORMALS: no acute distress ORIENTATION/CONSCIOUSNESS: Yes awake, Yes oriented to person and Yes oriented to place; not oriented to time Eye: COMMON NORMALS: Equal, round and reactive pupils present PUPIL: Yes Equal, round and reactive pupils present Lymph: LYMPHATIC: no lymphadenopathy noted Resp: COMMON NORMALS: normal respiratory effort, No retractions, No use of accessory muscles and clear to auscultation bilaterally AUSCULTATION: clear to auscultation bilaterally Cardio: COMMON NORMALS: regular rate, regular rhythm, S1 normal heart sound present and S2 normal heart sound present RATE: regular rate RHYTHM: r egular rhythm HEART SOUNDS: S1 normal heart sound present and S2 normal heart sound present GI: OTHER: Abdomen soft, distended, no guarding, no rebound, no rigidity diffuse tenderness, scattered bowel sounds Extremity: COMMON NORMALS: no pedal edema Neuro: SENSORIUM/ORIENTATION: Yes oriented to person, Yes oriented to place and No oriented to time Data 04/22/24 04:07 04/22/24 04:07 A&P Assessment and plan (1) Alcohol intoxication: (2) Hypertension: (3) Jaundice: (4) Transaminitis: (5) Advanced cirrhosis of liver: (6) Acute alcoholic pancreatitis: Qualifiers: Acute pancreatitis complication: unspecified Qualified Code(s): K85.20 - Alcohol induced acute pancreatitis without necrosis or infection (7) Chest wall hematoma: (8) High anion gap metabolic acidosis: (9) Hypokalemia: (10) Acute hepatic failure: Plan #Acute pancreatitis #1.8 cm possible mass at pancreatic head? 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 Prior rib fractures -Transaminitis -elevated INR secondary to liver cirrhosis -Hyperbilirubinemia ? Hypoalbuminemia ? Hyponatremia ? Continue lactulose 15 twice daily ? Placed on Protonix 40 IV daily ? Strict n.p.o. at this time ? Placed on LR 150 cc/h ? Hydralazine 10 every 4 hours as needed for high blood pressure -MRCP - MR/MR MRCP [id number] IMPRESSION: 1. Study is compromised by motion artifact. Patient was unable to hold his breath for this examination. 2. Normal common bile duct. 3. Minimally hydropic gallbladder with a small amount of adjacent fluid. There is fluid extending into the paracolic gutter and also surrounding the pancreas from pancreatitis. This is only a small amount of fluid. 4. Pancreatic head is mildly enlarged and edematous. MRCP examination is not targeted to evaluate the pancreas for mass. As patient is unable to hold his breath for this examination or cooperate recommend follow-up dedicated MRI of the pancreas with and without contrast when the patient is clinically able to cooperate. Otherwise short-term follow-up by CT, multiphase, may be more appropriate due to short of breath holding times. ? Placed on CIWA protocol ? Discussed with patient regarding abstaining from alcohol. ? Will need to follow-up with a veteran appeals reviewer after discharge. ? Suspect depression. Will need to discuss with patient and he agrees may start on antidepressant. ? Anion gap elevated most likely secondary to starvation ketosis ?Alcohol levels 467, CIWA protocol, monitor for severe alcohol withdrawals ? Increased anion gap metabolic acidosis, likely secondary to starvation ketosis, ? Zofran, Reglan ? Monitor for for severe alcohol withdrawals -Monitor chest wall hematoma site, start vancomycin, cefepime US/ chest [id number] IMPRESSION: Apparent subcutaneous complex hematoma measuring 5 x 2 cm in the left anterior chest, underlying infection is not excluded based on imaging alone. Full code Due to prophylaxis: SCDs, anticoagulation relatively contraindicated given thrombocytopenia, anemia, liver cirrhosis Plan for today continue IV antibiotics, continue IV fluids, continue Protonix, continue Carafate, monitor status closely discussed with Denise, replace electrolytes, will consider PICC line placement, with FFP, encourage patient to get up out of bed, monitor for alcohol withdrawal Attestations 2 Medical Necessity Statement*: Patient requires hospitalization for acute pancreatitis, advanced liver cirrhosis, chest wall hematoma concerns for infection Diagnoses Alcohol intoxication F10.929 Hypertension I10 Jaundice R17 Transaminitis R74.01 Advanced cirrhosis of liver K74.60 Acute alcoholic pancreatitis K85.20 Acute pancreatitis complication: unspecified Chest wall hematoma S20.219A High anion gap metabolic acidosis E87.29 Hypokalemia E87.6 Acute hepatic failure K72.00
[2024-04-22 16:23] LABS: Alanine Aminotransferase 84 U/L (0-41); Albumin Level 2.9 g/dL (3.5-5.2); Alkaline Phosphatase 245 U/L (40-130); Anion Gap 20.5 (5-19); Aspartate Amino Transferase 222 U/L (0-40); Blood Urea Nitrogen 10 mg/dL (6-20); Calcium 7.8 mg/dL (8.5-10.5); Carbon Dioxide 21 mmol/L (22-29); Chloride 92 mmol/L (98-107); Creatinine Clr Calc Pharmacy 241.7142; Globulin 2.8 g/dL (1.3-4.6); Glomerular Filtration Rate 191.5 mL/min (90-130); Glucose 117 mg/dL (65-115); Osmolality Calculated 270 mOsm/kg (285-295); Potassium 3.5 mmol/L (3.5-5.1); Sodium 130 mmol/L (136-145); Total Protein 5.7 g/dL (6.6-8.7)
[2024-04-22 16:28] LABS: Total Bilirubin 14.3 mg/dL (0.15-1.2)
[2024-04-22 17:59] LABS: Vancomycin Trough 20.4 ug/mL (10-15)
--- NOTE | 2024-04-22 18:16 | SUR.PREOP ---
PICC LINE/ CONSENT In to discuss PICC line and obtain consent. Patient noted to be very lethargic and confused. Discussed this with nursing staff taking care of the patient and they state this is his baseline. Family is not here at this time to get necessary permissions for the procedure. I attempted to notify the patient's next of kin (his ) for consent as he does not meet the necessary requirment for it. Reasoning for next of kin consent is he is temporarily confused d/t his ongoing medical diagnosis. I was unable to reach his by phone. Message was left to call the ICU here. I am awaiting call back to obtain the consent. Plan to place line tomorrow morning once permission is obtained.
[2024-04-22] MEDS: pantoprazole 40 mg SDV IVP (22:41)
[2024-04-23] VITALS (100 sets, daily range): BP systolic 110–164; BP diastolic 5–98; PULSE 101–142; RESP 11–26; TEMP 36.8–37.2; O2SAT 93–100
[2024-04-23] MEDS: HYDROmorphone 1 mg/mL INJ 1 mL IVP ×5 (01:09→20:30)
[2024-04-23] MEDS: metroNIDAZOLE IV 500 MG/100 ML PREMIX 100 MG IV ×3 (01:10→17:37)
[2024-04-23] MEDS: LORazepam 2 mg/mL INJ 1 mL IVP (03:06)
[2024-04-23] MEDS: lactated ringers 1,000 ML 150 ML IV ×3 (03:30→20:00)
[2024-04-23 04:02] LABS: Basophils % 0.4 %; Eosinophils # 0.1 10^3/uL (0.0-0.8); Eosinophils % 0.9 %; Hematocrit 21.1 % (37-53); Lymphocytes # 0.6 10^3/uL (0.8-4.8); Lymphocytes % 11.8 %; Mean Corpuscular HGB Conc 34.6 g/dL (30-55); Mean Corpuscular Hemoglobin 34.1 pg (27-33); Mean Corpuscular Volume 98.6 fl (82-101); Mean Platelet Volume 10.4 fL (7.4-10.4); Monocytes # 0.7 10^3/uL (0.2-0.9); Monocytes % 13.1 %; Neutrophils # 3.98 10^3/uL (1.8-7.7); Neutrophils % 73.2 %; Nucleated Red Blood Cells % 0 %; Platelet Count 48 10^3/cmm (157-399); Red Blood Count 2.14 10^6/uL (3.85-5.65); Red Cell Distribution Width 15.6 % (12.1-15.1); White Blood Count 5.43 10^3/uL (3.29-11.43)
[2024-04-23 04:13] LABS: INR 2.81 (0.8-1.2)
[2024-04-23 04:15] LABS: Ammonia 98 umol/L (16-60)
[2024-04-23 04:19] LABS: Alanine Aminotransferase 77 U/L (0-41); Albumin Level 2.9 g/dL (3.5-5.2); Alkaline Phosphatase 237 U/L (40-130); Anion Gap 18.1 (5-19); Aspartate Amino Transferase 188 U/L (0-40); Blood Urea Nitrogen 8 mg/dL (6-20); C Reactive Protein 57.1 mg/L (0.0-4.9); Calcium 7.9 mg/dL (8.5-10.5); Carbon Dioxide 22 mmol/L (22-29); Chloride 97 mmol/L (98-107); Creatinine Clr Calc Pharmacy 241.7142; Globulin 2.7 g/dL (1.3-4.6); Glomerular Filtration Rate 191.5 mL/min (90-130); Glucose 116 mg/dL (65-115); Magnesium 1.7 mg/dL (1.7-2.3); Osmolality Calculated 277 mOsm/kg (285-295); Potassium 3.1 mmol/L (3.5-5.1); Sodium 134 mmol/L (136-145); Total Protein 5.6 g/dL (6.6-8.7)
[2024-04-23 04:21] LABS: NT Pro B Type Natriuretic Pept 60 pg/mL (0-125); Procalcitonin 0.65 ng/mL (0-0.5)
[2024-04-23 04:38] LABS: Creatine Phosphokinase 48 U/L (39-308)
[2024-04-23 04:45] LABS: Total Bilirubin 14.8 mg/dL (0.15-1.2)
[2024-04-23] MEDS: cefepime 1,000 mg SDV 1000 MG IVP (05:59)
[2024-04-23] MEDS: ondansetron 2 mg/ML SDV 2 mL 4 MG IVP ×2 (07:15→20:00)
--- NOTE | 2024-04-23 09:13 | SUR.PREOP ---
TIME OUT Time out for PICC line insertion.
[2024-04-23] MEDS: folic acid 1 mg Tablet PO (09:16)
[2024-04-23] MEDS: multivitamin therapeutic Tablet 1 TAB PO (09:16)
[2024-04-23] MEDS: lactulose oral liq 20 gm/30 mL UDC PO ×2 (09:16→19:43)
--- NOTE | 2024-04-23 09:16 | XR_ITS ---
WS: [id number] CHEST XRAY TECHNIQUE: Portable chest. CLINICAL INFORMATION: PICC LINE INSERTION FINDINGS: RIGHT PICC line with tip in the RIGHT atrium. Recommend retraction 1 to 2 cm for optimal distal SVC/R A placement. No pneumothorax. XR/XR chest 1V portable [id number] IMPRESSION: See above
[2024-04-23] MEDS: vancomycin 1,750 MG/350 ML PIGGYBACK 233.3 MG IV (10:29)
[2024-04-23] MEDS: potassium phosphate (mEq K) 40 MEQ in sodium chloride 0.9% (100 ml) 100 ML 27.27 MEQ IV (10:40)
--- NOTE | 2024-04-23 11:01 | PC.NURSE ---
1043 FFP infused without any complaints. mikey well. Yuriy placed a PIIC line in upper right arm.
[2024-04-23 16:14] LABS: Osmolality Serum 328 mOsm/kg (278-305)
[2024-04-23 16:41] LABS: Osmolality Urine 442 mOsm/kg (50-1200)
[2024-04-23] MEDS: cefepime 1,000 MG in sodium chloride 0.9% (plus) 50 ML 100 MG IV (17:26)
--- NOTE | 2024-04-23 19:11 | P.PN_ITS ---
Subjective 2 Subjective: - Spoke to patient, discussed concerns f or worsening liver failure, will continue to monitor closely, he is alert to person, to place, not to time he follows all commands, continues to complain of nausea, no vomiting, he tells me that his abdomen continues to hurt him, discussed his morbidity and mortality, -Spoke to patient's , discussed his elevated liver markers, his worsening liver failure, his morbidity mortality with his worsening liver failure we will continue to monitor him closely, Vitals/I&O/Wt Last Vital Signs Temp 98.5 F 04/23/24 16:00 Pulse 113 H 04/23/24 16:00 Resp 14 04/23/24 17:29 BP 128/73 04/23/24 16:00 Pulse Ox 97 04/23/24 17:29 O2 Del Method Room Air 04/21/24 16:00 04/23/24 04/23/24 04/23/24 06:59 14:59 22:59 Intake Total 1510 / 3330 1843.5106 / 1843.5106 50 / 1893.5106 Output Total 900 / 1900 Balance 610 / 1430 1843.5106 / 1843.5106 50 / 1893.5106 Weight last 48 hrs Weight 87.543 kg Weight 83.461 kg Physical Exam 2 Const: COMMON NORMALS: no acute distress and patient oriented x3 OTHER: Jaundice, scleral icterus Resp: COMMON NORMALS: normal respiratory effort, No retractions, No use of accessory muscles and clear to auscultation bilaterally AUSCULTATION: clear to auscultation bilaterally Cardio: COMMON NORMALS: regular rate, regular rhythm, S1 normal heart sound present and S2 normal heart sound present RATE: regular rate RHYTHM: r egular rhythm HEART SOUNDS: S1 normal heart sound present and S2 normal heart sound present GI: OTHER: Abdomen soft, distended, no guarding, no rebound, rigidity, fluid wave present Extremity: COMMON NORMALS: no pedal edema Neuro: COMMON NORMALS: patient oriented x3 Psych: COMMON NORMALS: mental status grossly normal Data 04/23/24 02:37 04/23/24 02:37 A&P Assessment and plan (1) Alcohol intoxication: (2) Hypertension: (3) Jaundice: (4) Transaminitis: (5) Advanced cirrhosis of liver: (6) Acute alcoholic pancreatitis: Qualifiers: Acute pancreatitis complication: unspecified Qualified Code(s): K85.20 - Alcohol induced acute pancreatitis without necrosis or infection (7) Chest wall hematoma: (8) High anion gap metabolic acidosis: (9) Hypokalemia: (10) Acute hepatic failure: Plan #Acute pancreatitis #1.8 cm possible mass at pancreatic head? 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 Prior rib fractures -Transaminitis -elevated INR secondary to liver cirrhosis -Hyperbilirubinemia ? Hypoalbuminemia ? Hyponatremia ? Continue lactulose 15 twice daily ? Placed on Protonix 40 IV daily ? Strict n.p.o. at this time ? Placed on LR 150 cc/h ? Hydralazine 10 every 4 hours as needed for high blood pressure -MRCP - MR/MR MRCP 84516 IMPRESSION: 1. Study is compromised by motion artifact. Patient was unable to hold his breath for this examination. 2. Normal common bile duct. 3. Minimally hydropic gallbladder with a small amount of adjacent fluid. There is fluid extending into the paracolic gutter and also surrounding the pancreas from pancreatitis. This is only a small amount of fluid. 4. Pancreatic head is mildly enlarged and edematous. MRCP examination is not targeted to evaluate the pancreas for mass. As patient is unable to hold his breath for this examination or cooperate recommend follow-up dedicated MRI of the pancreas with and without contrast when the patient is clinically able to cooperate. Otherwise short-term follow-up by CT, multiphase, may be more appropriate due to short of breath holding times. ? Placed on [facility] protocol ? Discussed with patient regarding abstaining from alcohol. ? Will need to follow-up with a document restorer after discharge. ? Suspect depression. Will need to discuss with patient and he agrees may start on antidepressant. ? Anion gap elevated most likely secondary to starvation ketosis ?Alcohol levels 467, [facility] protocol, monitor for severe alcohol withdrawals ? Increased anion gap metabolic acidosis, likely secondary to starvation ketosis, ? Zofran, Reglan ? Monitor for for severe alcohol withdrawals -Monitor chest wall hematoma site, start vancomycin, cefepime US/US chest 50230 IMPRESSION: Apparent subcutaneous complex hematoma measuring 5 x 2 cm in the left anterior chest, underlying infection is not excluded based on imaging alone. Full code Due to prophylaxis: SCDs, anticoagulation relatively contraindicated given thrombocytopenia, anemia, liver cirrhosis Plan for today continue IV antibiotics, continue IV fluids, continue Protonix, continue Carafate, monitor status closely discussed with Denise, replace electrolytes, PICC line placement, with FFP, encourage patient to get up out of bed, monitor for alcohol withdrawal Attestations 2 Medical Necessity Statement*: Patient requires hospitalization for acute liver failure, pancreatitis, alcohol withdrawal, spoke to patient, spoke to patient's and High MDM includes number and complexity of problems actively addressed during encounter, amount and/or complexity of data reviewed/ordered and described risk of complication, morbidity or mortality of management as documented Diagnoses Alcohol intoxication F10.929 Hypertension I10 Jaundice R17 Transaminitis R74.01 Advanced cirrhosis of liver K74.60 Acute alcoholic pancreatitis K85.20 Acute pancreatitis complication: unspecified Chest wall hematoma S20.219A High anion gap metabolic acidosis E87.29 Hypokalemia E87.6 Acute hepatic failure K72.00
[2024-04-23] MEDS: pantoprazole 40 mg SDV IVP (22:48)
[2024-04-23] MEDS: vancomycin 1,750 MG/350 ML PIGGYBACK 233.33 MG IV (22:48)
[2024-04-24] VITALS (64 sets, daily range): BP systolic 101–159; BP diastolic 70–98; PULSE 90–132; RESP 10–70; TEMP 36.5–37.1; O2SAT 90–100; BMI 25.9
[2024-04-24] MEDS: HYDROmorphone 1 mg/mL INJ 1 mL IVP ×6 (00:52→20:11)
[2024-04-24] MEDS: metroNIDAZOLE IV 500 MG/100 ML PREMIX 100 MG IV ×3 (00:53→17:46)
[2024-04-24 03:34] LABS: Basophils % 0.5 %; Eosinophils # 0.1 10^3/uL (0.0-0.8); Eosinophils % 1.2 %; Lymphocytes # 0.6 10^3/uL (0.8-4.8); Lymphocytes % 13.4 %; Mean Corpuscular HGB Conc 34.2 g/dL (30-55); Mean Corpuscular Hemoglobin 35.1 pg (27-33); Mean Corpuscular Volume 102.7 fl (82-101); Mean Platelet Volume 9.7 fL (7.4-10.4); Monocytes # 0.6 10^3/uL (0.2-0.9); Monocytes % 14.9 %; Neutrophils # 2.83 10^3/uL (1.8-7.7); Nucleated Red Blood Cells % 0.5 %; Platelet Count 44 10^3/cmm (157-399); Red Blood Count 1.88 10^6/uL (3.85-5.65); Red Cell Distribution Width 16.1 % (12.1-15.1)
[2024-04-24 03:51] LABS: Hematocrit 19.3 % (37-53)
[2024-04-24 03:52] LABS: INR 3.39 (0.8-1.2)
[2024-04-24 04:02] LABS: Ammonia 82 umol/L (16-60)
[2024-04-24 04:03] LABS: Alanine Aminotransferase 59 U/L (0-41); Albumin Level 2.5 g/dL (3.5-5.2); Alkaline Phosphatase 200 U/L (40-130); Aspartate Amino Transferase 121 U/L (0-40); Blood Urea Nitrogen 5 mg/dL (6-20); C Reactive Protein 44.2 mg/L (0.0-4.9); Calcium 7.8 mg/dL (8.5-10.5); Carbon Dioxide 22 mmol/L (22-29); Chloride 102 mmol/L (98-107); Creatinine Clr Calc Pharmacy 246.5672; Glomerular Filtration Rate 191.5 mL/min (90-130); Glucose 85 mg/dL (65-115); Magnesium 1.3 mg/dL (1.7-2.3); Osmolality Calculated 285 mOsm/kg (285-295); Phosphorus 1.4 mg/dL (2.5-4.5); Sodium 139 mmol/L (136-145); Total Protein 4.5 g/dL (6.6-8.7)
[2024-04-24 04:06] LABS: Procalcitonin 0.51 ng/mL (0-0.5)
[2024-04-24 04:16] LABS: Total Bilirubin 14.6 mg/dL (0.15-1.2)
[2024-04-24] MEDS: vancomycin 1,750 MG/350 ML PIGGYBACK 233.33 MG IV ×2 (05:14→14:13)
[2024-04-24] MEDS: cefepime 1,000 MG in sodium chloride 0.9% (plus) 50 ML 100 MG IV ×2 (05:14→17:50)
[2024-04-24] MEDS: ondansetron 2 mg/ML SDV 2 mL 4 MG IVP ×2 (05:41→23:47)
--- NOTE | 2024-04-24 08:31 | CT_ITS ---
WS: [id number] CT CHEST, ABDOMEN, AND PELVIS TECHNIQUE: Noncontrast CT of the chest, abdomen, and pelvis with coronal and sagittal reformatted pastora ges. CLINICAL INFORMATION: GI bleed, retroperineal bleed COMPARISON: CT 04/20/2024 DLP: 1367.[address] scans at [facility] use at least one of these dose optimization techniques: automated e xposure control; mA and/or kV adjustment per patient size (includes targeted exams where dose is matc hed to clinical indication); or iterative reconstruction. CT CHEST: Again seen is the mixed attenuation LEFT pectoral hematoma similar to the recent study. Normal calibe r thoracic aorta. No mediastinal or hilar lymphadenopathy. No axillary lymphadenopathy. Tiny esophage al hiatal hernia. Small RIGHT pleural effusion. Tiny LEFT pleural effusion. Slight bibasal atelectasi s. Stable partially calcified subpleural opacity RIGHT upper lobe. Elevation RIGHT hemidiaphragm. CT ABDOMEN AND PELVIS: Intramuscular hematoma in the RIGHT gluteus musculature measuring 6.4 x 4.1 cm small amount of increa sed attenuation blood products. This was partially visualized on the prior study but appears new sinc e 12/13/2023. Hepatomegaly. Diffuse fatty infiltration of the liver. Fluid distended gallbladder. Acute pancreatiti s is previously described. No drainable fluid collections. No evidence of pancreatic necrosis. Mild s plenomegaly. Adrenal glands are normal. No hydronephrosis. Normal caliber abdominal aorta. Urine dist ention of the bladder. Diffuse body wall anasarca. Mesenteric edema. Small amount of ascites in the p aracolic gutters. Enhancing lesion the RIGHT hepatic lobe measuring 2.2 cm is unchanged. Stable lytic lesion/lucencies in the bony pelvis more prominent in the iliac wings. CT/[place] [id number] IMPRESSION: 1. Similar-appearing mixed attenuation LEFT chest wall hematoma. 2. Small RIGHT and tiny LEFT pleural effusions. 3. Stable findings of acute pancreatitis as previously described. No drainable fluid collections. No evidence of pancreatic necrosis. 4. Marked hepatomegaly with diffuse fatty filtration of the liver. Splenomegal y. 5. No evidence of retroperitoneal hematoma. 6. Intramuscular hematoma within the RIGHT gluteus musculature measuring 6.4 x 4.1 cm with a small amount of increased attenuation blood products. 7. Stable enhancing lesion in the RIGHT hepatic lobe measuring 2.3 cm may repr esent a hemangioma. 8. Stable lytic lesion/lucencies in the bony pelvis more prominent in the salome c wings. 9. Hydropic fluid distended gallbladder. Notified Troy Hopson MD at 04/24/2024 10:13 AM.
--- NOTE | 2024-04-24 09:30 | PC.NURSE ---
MAR: am med delay related to care of other critical care patients and going to CT.
[2024-04-24] MEDS: lactated ringers 1,000 ML 150 ML IV (10:02)
[2024-04-24] MEDS: magnesium sulfate premix 1 GM/100 ML PIGGYBACK IV (10:03)
[2024-04-24] MEDS: potassium phosphate (mEq K) 40 MEQ in sodium chloride 0.9% (100 ml) 100 ML 27.27 MEQ IV (10:11)
[2024-04-24] MEDS: lactulose oral liq 20 gm/30 mL UDC PO ×2 (10:22→20:10)
[2024-04-24] MEDS: folic acid 1 mg Tablet PO (10:22)
[2024-04-24] MEDS: multivitamin therapeutic Tablet 1 TAB PO (10:22)
[2024-04-24] MEDS: sodium chloride 0.9% 100 mL Bag 50 ML IV (12:22)
--- NOTE | 2024-04-24 13:53 | PM.PN ---
Subjective Subjective: Patient was examined this morning, he is alert to person, to place, to time is at bedside appears more jaundice, with scleral icterus does have cognitive slowing, discussed his hyperammonemia, his use of narcotics for his pain he continues to have severe abdominal pain complaints, feeling nauseous ? Overnight he was noted to have hemoglobin 6.6, INR 3.39, 1 unit of blood and 1 unit FFP has been ordered ? Patient reports multiple falls before coming to the hospital, he has multiple bruises over his back, and up of his buttocks, occurring from his falls ? He also has a left pectoral hematoma that required IR embolization during his last hospitalization and transfer to tertiary level center ? We discussed his worsening liver failure, and as a result the anemia and thrombocytopenia, and decreasing clotting factors and his propensity to bleed ? Plan will be to do CT chest abdomen pelvis, to ensure that he does not have any retroperitoneal bleed or any other hematoma developing ? Continue transfusion of 1 unit PRBC, 1 unit FFP ? CT as below CT/[place] [id number] IMPRESSION: 1. Similar-appearing mixed attenuation LEFT chest wall hematoma. 2. Small RIGHT and tiny LEFT pleural effusions. 3. Stable findings of acute pancreatitis as previously described. No drainable fluid collections. No evidence of pancreatic necrosis. 4. Marked hepatomegaly with diffuse fatty filtration of the liver. Splenomegaly. 5. No evidence of retroperitoneal hematoma. 6. Intramuscular hematoma within the RIGHT gluteus musculature measuring 6.4 x 4.1 cm with a small amount of increased attenuation blood products. 7. Stable enhancing lesion in the RIGHT hepatic lobe measuring 2.3 cm may represent a hemangioma. 8. Stable lytic lesion/lucencies in the bony pelvis more prominent in the iliac wings. 9. Hydropic fluid distended gallbladder. ?Spoke to radiology about findings, patient's intramuscular hematoma the right gluteal muscle was also present on his prior scan during his last hospitalization but has increased in size, likely related to his fall ? Plan on giving another unit FFP ? Will recheck his CBC and INR this afternoon Certainly he can bleed in to this hematoma, there is risk of infection next?for now Augmentin continue his vancomycin, cefepime, Flagyl ? Repeat CBC and INR in the afternoon, and will consider further replacement of blood products ? Continue Protonix, Carafate, will add on rifaximin -Had a kristofer discussion with patient and his about his critical status, his prognosis is poor, given his recent history of alcoholism, and that he is not a liver transplant candidate after my discussion with Denise, and his liver failure continues to worsen, if his liver failure continues to worsen, there is not much unfortunately I can do for him, except supportive measures Had a kristofer and candid discussion with Buddy, with his history of alcoholism, most recent history of drinking now with acute pancreatitis acute liver failure, and the complicated acute liver failure his condition is slowly deteriorating, he is very young, but with his recent history of alcoholism and his prior history alcoholism there is now much beside medical management I have to offer to him, and unfortunately he is not a liver transplant candidate, after Extensive discussion with Denise hepatology, but can reach out to them again Vitals/I&O/Wt Last Vital Signs Temp 97.7 F 04/24/24 11:50 Pulse 100 04/24/24 11:50 Resp 14 04/24/24 11:50 BP 127/79 04/24/24 11:50 Pulse Ox 97 04/24/24 11:50 O2 Del Method Room Air 04/24/24 04:30 04/23/24 04/24/24 04/24/24 22:59 06:59 14:59 Intake Total 1025 / 2868.5106 1450 / 4318.5106 950 / 950 Output Total 1000 / 1000 600 / 1600 Balance 25 / 1868.5106 850 / 2718.5106 950 / 950 Weight last 48 hrs Weight 88.961 kg Weight 87.543 kg Physical Exam Const: COMMON NORMALS: no acute distress and patient oriented x3 Eye: OTHER: Scleral icterus, jaundiced Resp: COMMON NORMALS: normal respiratory effort, No retractions, No use of accessory muscles and clear to auscultation bilaterally AUSCULTATION: clear to auscultation bilaterally Cardio: COMMON NORMALS: regular rate, regular rhythm, S1 normal heart sound present and S2 normal heart sound present RATE: regular rate RHYTHM: regular rhythm HEART SOUNDS: S1 normal heart sound present and S2 normal heart sound present GI: OTHER: Abdomen soft, distended, no guarding, no rebound, no rigidity, diffuse tenderness Extremity: COMMON NORMALS: no pedal edema Neuro: COMMON NORMALS: patient oriented x3 Psych: COMMON NORMALS: mental status grossly normal Skin: NARRATIVE SKIN EXAM: Left arm swelling, left pectoral swelling ? Multiple bruises found throughout body, bilateral flanks, above buttocks, bilateral arms Data 04/24/24 03:03 04/24/24 03:03 A&P Assessment and plan (1) Alcohol intoxication: (2) Hypertension: (3) Jaundice: (4) Transaminitis: (5) Advanced cirrhosis of liver: (6) Acute alcoholic pancreatitis: Qualifiers: Acute pancreatitis complication: unspecified Qualified Code(s): K85.20 - Alcohol induced acute pancreatitis without necrosis or infection (7) Chest wall hematoma: (8) High anion gap metabolic acidosis: (9) Hypokalemia: (10) Acute hepatic failure: (11) Acute blood loss anemia: (12) Elevated INR: (13) Hyperbilirubinemia: (14) Hypomagnesemia: (15) Hypophosphatemia: (16) Intramuscular hematoma: Plan Plan #Acute pancreatitis # Acute decompensated liver failure #1.8 cm possible mass at pancreatic head? On MRCP pancreatic head is mildly enlarged and edematous. MRCP examination is not targeted to evaluate the pancreas for mass. As patient is unable to hold his breath for this examination or cooperate recommend follow-up dedicated MRI of the pancreas with and without contrast when the patient is clinically able to cooperate. Otherwise short-term follow-up by CT, multiphase, may be more appropriate due to short of breath holding times. 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 Prior rib fractures -Transaminitis -elevated INR secondary to liver cirrhosis -Hyperbilirubinemia ? Hypoalbuminemia ? Hyponatremia ? Continue lactulose 15 twice daily ? Placed on Protonix 40 IV daily ? Strict n.p.o. at this time ? Placed on LR 150 cc/h ? Hydralazine 10 every 4 hours as needed for high blood pressure -MRCP - MR/MR MRCP [id number] IMPRESSION: 1. Study is compromised by motion artifact. Patient was unable to hold his breath for this examination. 2. Normal common bile duct. 3. Minimally hydropic gallbladder with a small amount of adjacent fluid. There is fluid extending into the paracolic gutter and also surrounding the pancreas from pancreatitis. This is only a small amount of fluid. 4. Pancreatic head is mildly enlarged and edematous. MRCP examination is not targeted to evaluate the pancreas for mass. As patient is unable to hold his breath for this examination or cooperate recommend follow-up dedicated MRI of the pancreas with and without contrast when the patient is clinically able to cooperate. Otherwise short-term follow-up by CT, multiphase, may be more appropriate due to short of breath holding times. ? Placed on [facility] protocol ? Discussed with patient regarding abstaining from alcohol. ? Will need to follow-up with a uniform patrol police officer after discharge. ? Suspect depression. Will need to discuss with patient and he agrees may start on antidepressant. ? Anion gap elevated most likely secondary to starvation ketosis ?Alcohol levels 467, [facility] protocol, monitor for severe alcohol withdrawals ? Increased anion gap metabolic acidosis, likely secondary to starvation ketosis, ? Zofran, Reglan ? Monitor for for severe alcohol withdrawals -Monitor chest wall hematoma site, start vancomycin, cefepime US/US chest [id number] IMPRESSION: Apparent subcutaneous complex hematoma measuring 5 x 2 cm in the left anterior chest, underlying infection is not excluded based on imaging alone. Full code Due to prophylaxis: SCDs, anticoagulation relatively contraindicated given thrombocytopenia, anemia, liver cirrhosis Patient was examined this morning, he is alert to person, to place, to time is at bedside appears more jaundice, with scleral icterus does have cognitive slowing, discussed his hyperammonemia, his use of narcotics for his pain he continues to have severe abdominal pain complaints, feeling nauseous ? Overnight he was noted to have hemoglobin 6.6, INR 3.39, 1 unit of blood and 1 unit FFP has been ordered ? Patient reports multiple falls before coming to the hospital, he has multiple bruises over his back, and up of his buttocks, occurring from his falls ? He also has a left pectoral hematoma that required IR embolization during his last hospitalization and transfer to tertiary level center ? We discussed his worsening liver failure, and as a result the anemia and thrombocytopenia, and decreasing clotting factors and his propensity to bleed ? Plan will be to do CT chest abdomen pelvis, to ensure that he does not have any retroperitoneal bleed or any other hematoma developing ? Continue transfusion of 1 unit PRBC, 1 unit FFP ? CT as below [place] [id number] IMPRESSION: 1. Similar-appearing mixed attenuation LEFT chest wall hematoma. 2. Small RIGHT and tiny LEFT pleural effusions. 3. Stable findings of acute pancreatitis as previously described. No drainable fluid collections. No evidence of pancreatic necrosis. 4. Marked hepatomegaly with diffuse fatty filtration of the liver. Splenomegaly. 5. No evidence of retroperitoneal hematoma. 6. Intramuscular hematoma within the RIGHT gluteus musculature measuring 6.4 x 4.1 cm with a small amount of increased attenuation blood products. 7. Stable enhancing lesion in the RIGHT hepatic lobe measuring 2.3 cm may represent a hemangioma. 8. Stable lytic lesion/lucencies in the bony pelvis more prominent in the iliac wings. 9. Hydropic fluid distended gallbladder. ?Spoke to radiology about findings, patient's intramuscular hematoma the right gluteal muscle was also present on his prior scan during his last hospitalization but has increased in size, likely related to his fall ? Plan on giving another unit FFP ? Will recheck his CBC and INR this afternoon Certainly he can bleed in to this hematoma, there is risk of infection next?for now Augmentin continue his vancomycin, cefepime, Flagyl ? Repeat CBC and INR in the afternoon, and will consider further replacement of blood products ? Continue Protonix, Carafate, will add on rifaximin -Had a kristofer discussion with patient and his about his critical status, his prognosis is poor, given his recent history of alcoholism, and that he is not a liver transplant candidate after my discussion with Denise, and his liver failure continues to worsen, if his liver failure continues to worsen, there is not much unfortunately I can do for him, except supportive measures Had a kristofer and candid discussion with Buddy, with his history of alcoholism, most recent history of drinking now with acute pancreatitis acute liver failure, and the complicated acute liver failure his condition is slowly deteriorating, he is very young, but with his recent history of alcoholism and his prior history alcoholism there is now much beside medical management I have to offer to him, and unfortunately he is not a liver transplant candidate, after Extensive discussion with Denise hepatology, but can reach out to them again Attestations Medical Necessity Statement*: patient requires hospitalization for coagulopathy intramuscular hematoma with acute blood loss anemia, acute decompensated liver failure, acute pancreatitis,hyperammonemia Diagnoses Alcohol intoxication F10.929 Hypertension I10 Jaundice R17 Transaminitis R74.01 Advanced cirrhosis of liver K74.60 Acute alcoholic pancreatitis K85.20 Acute pancreatitis complication: unspecified Chest wall hematoma S20.219A High anion gap metabolic acidosis E87.29 Hypokalemia E87.6 Acute hepatic failure K72.00 Acute blood loss anemia D62 Elevated INR R79.1 Hyperbilirubinemia E80.6 Hypomagnesemia E83.42 Hypophosphatemia E83.39 Intramuscular hematoma T14.8XXA
--- NOTE | 2024-04-24 14:05 | PICC.NOTE ---
PICC dressing to right upper arm changed using sterile technique. Biopatch noted to be completely saturated with blood and large amount bloody drainage noted under TSM. Site cleaned with CHG. Biopatch applied. Secured with stat-lock and Sorbaview TSM. Pt tolerated well.
[2024-04-24 14:26] LABS: Basophils % 0.7 %; Eosinophils # 0.1 10^3/uL (0.0-0.8); Eosinophils % 1.6 %; Hematocrit 21.3 % (37-53); Lymphocytes # 0.8 10^3/uL (0.8-4.8); Lymphocytes % 18.7 %; Mean Corpuscular HGB Conc 33.8 g/dL (30-55); Mean Corpuscular Hemoglobin 33.8 pg (27-33); Mean Platelet Volume 9.9 fL (7.4-10.4); Monocytes # 0.7 10^3/uL (0.2-0.9); Monocytes % 16.4 %; Neutrophils # 2.77 10^3/uL (1.8-7.7); Neutrophils % 62.2 %; Nucleated Red Blood Cells % 0.4 %; Platelet Count 54 10^3/cmm (157-399); Red Blood Count 2.13 10^6/uL (3.85-5.65); Red Cell Distribution Width 18.6 % (12.1-15.1); White Blood Count 4.45 10^3/uL (3.29-11.43)
[2024-04-24 14:44] LABS: INR 2.91 (0.8-1.2)
--- NOTE | 2024-04-24 15:00 | PC.NURSE ---
Pt stated he heard a bang. He asked if there were trash cans near his door, if his door was near an exit. He said there were rats under his bed and they are creeping me out! reassured he is in hospital and that band was not trash cans nor rats.
--- NOTE | 2024-04-24 15:00 | PC.NURSE ---
TAR: FFP vital signs also see ICU.vital signs.
[2024-04-24 16:48] LABS: Anion Gap 18.3 (5-19); Blood Urea Nitrogen 5 mg/dL (6-20); Carbon Dioxide 23 mmol/L (22-29); Chloride 102 mmol/L (98-107); Creatinine Clr Calc Pharmacy 248.2531; Glomerular Filtration Rate 191.5 mL/min (90-130); Glucose 86 mg/dL (65-115); Osmolality Calculated 287 mOsm/kg (285-295); Potassium 3.3 mmol/L (3.5-5.1); Sodium 140 mmol/L (136-145)
[2024-04-24] MEDS: lactated ringers 1,000 ML 100 ML IV (17:44)
[2024-04-24] MEDS: sucralfate 1 gm Tablet PO ×2 (17:45→20:10)
--- NOTE | 2024-04-24 20:00 | PC.NURSE ---
Shift summary: Pt rested in bed this shift except once. He got out of bed to BSC once by himself, after asking ancillary staff to side puller BSC for him. Liquid green BM noted. Pt unsteady had difficulty getting back in bed as he tried to without assistance. He is jaundiced (school bus yellow) He stated this admit he came in because he slipped in the bathtub. I wasn't drinking. I haven't in a little while . He remain on room air. Sinus rhythm noted on monitor. Electrolye imbalance noted on DEC. He did receive Magnesium and potassium replacements per IV. His PT and INR remain elevated. His HGB and HCT were 6.6 and19.3 respectively this am. FFP x 2 units admin and another 1 unit of PRBC started this shift. ( as one finished as beginning of shift). Pt complained of pain in his left side. He received Dilaudid on q4hr schedule x2. He did have an extra dose in am prior to going to CT for chest and abd. He uses urinal. His urine is very dark. Adequate output noted. He had 2 Bms this shift, one liquid green . The other looked like his urine.
[2024-04-24 23:50] LABS: Basophils % 0.4 %; Eosinophils # 0.1 10^3/uL (0.0-0.8); Eosinophils % 1.3 %; Hematocrit 23.7 % (37-53); Lymphocytes # 0.9 10^3/uL (0.8-4.8); Lymphocytes % 18.8 %; Mean Corpuscular HGB Conc 34.2 g/dL (30-55); Mean Corpuscular Hemoglobin 32.7 pg (27-33); Mean Corpuscular Volume 95.6 fl (82-101); Mean Platelet Volume 9.6 fL (7.4-10.4); Monocytes # 0.8 10^3/uL (0.2-0.9); Monocytes % 17.2 %; Neutrophils # 2.86 10^3/uL (1.8-7.7); Neutrophils % 61.7 %; Nucleated Red Blood Cells % 0 %; Platelet Count 66 10^3/cmm (157-399); Red Blood Count 2.48 10^6/uL (3.85-5.65); Red Cell Distribution Width 20.1 % (12.1-15.1); White Blood Count 4.64 10^3/uL (3.29-11.43)
[2024-04-25] VITALS (54 sets, daily range): BP systolic 99–151; BP diastolic 64–114; PULSE 97–119; RESP 13–23; TEMP 36.8–37.3; O2SAT 92–99; BMI 25.9
[2024-04-25 00:02] LABS: INR 3.21 (0.8-1.2)
[2024-04-25 00:06] LABS: Vancomycin Trough 7.2 ug/mL (10-15)
[2024-04-25] MEDS: HYDROmorphone 1 mg/mL INJ 1 mL IVP ×7 (00:14→21:14)
[2024-04-25] MEDS: vancomycin 2,000 MG/400 ML PIGGYBACK 200 MG IV ×3 (01:00→16:19)
[2024-04-25] MEDS: metroNIDAZOLE IV 500 MG/100 ML PREMIX 100 MG IV ×3 (01:02→17:18)
[2024-04-25] MEDS: lactated ringers 1,000 ML 100 ML IV ×2 (01:02→19:38)
[2024-04-25] MEDS: cefepime 1,000 MG in sodium chloride 0.9% (plus) 50 ML 100 MG IV (04:51)
[2024-04-25 05:41] LABS: Basophils % 0.8 %; Eosinophils # 0.1 10^3/uL (0.0-0.8); Eosinophils % 1.6 %; Hematocrit 22.1 % (37-53); Lymphocytes # 0.8 10^3/uL (0.8-4.8); Mean Corpuscular HGB Conc 33.9 g/dL (30-55); Mean Corpuscular Hemoglobin 32.9 pg (27-33); Mean Corpuscular Volume 96.9 fl (82-101); Mean Platelet Volume 9.8 fL (7.4-10.4); Monocytes # 0.7 10^3/uL (0.2-0.9); Monocytes % 18.1 %; Neutrophils # 2.21 10^3/uL (1.8-7.7); Nucleated Red Blood Cells % 0 %; Platelet Count 49 10^3/cmm (157-399); Red Blood Count 2.28 10^6/uL (3.85-5.65); Red Cell Distribution Width 21.1 % (12.1-15.1); White Blood Count 3.81 10^3/uL (3.29-11.43)
[2024-04-25] MEDS: sucralfate 1 gm Tablet PO ×4 (06:30→20:49)
[2024-04-25] MEDS: ondansetron 2 mg/ML SDV 2 mL 4 MG IVP ×2 (07:57→16:14)
[2024-04-25] MEDS: multivitamin therapeutic Tablet 1 TAB PO (08:03)
[2024-04-25] MEDS: folic acid 1 mg Tablet PO (08:03)
[2024-04-25] MEDS: lactulose oral liq 20 gm/30 mL UDC PO ×2 (08:03→20:49)
[2024-04-25 08:53] LABS: Alanine Aminotransferase 50 U/L (0-41); Albumin Level 2.9 g/dL (3.5-5.2); Alkaline Phosphatase 189 U/L (40-130); Ammonia 84 umol/L (16-60); Anion Gap 15.9 (5-19); Aspartate Amino Transferase 88 U/L (0-40); Blood Urea Nitrogen 4 mg/dL (6-20); Calcium 7.8 mg/dL (8.5-10.5); Carbon Dioxide 23 mmol/L (22-29); Chloride 102 mmol/L (98-107); Globulin 2.6 g/dL (1.3-4.6); Glomerular Filtration Rate 191.5 mL/min (90-130); Glucose 105 mg/dL (65-115); Magnesium 1.4 mg/dL (1.7-2.3); Osmolality Calculated 283 mOsm/kg (285-295); Sodium 138 mmol/L (136-145); Total Protein 5.5 g/dL (6.6-8.7)
[2024-04-25 09:14] LABS: Creatinine Clr Calc Pharmacy 248.2531; Potassium 2.9 mmol/L (3.5-5.1); Total Bilirubin 17.2 mg/dL (0.15-1.2)
[2024-04-25 09:17] LABS: INR 2.78 (0.8-1.2)
--- NOTE | 2024-04-25 09:58 | PC.NURSE ---
Dr harvey requested that nurse closely monitor size of hematomas. This nurse expressed concerns about the ability to properly monitor if the hematomas are growing, monitoring of size will likely not be accurate and they may expand without being noticed. The present hematomas are already very large, making small increases in size less noticeable. Edges of hematomas are very diffuse, with no clear boundary that can be marked with a marker to check for expansion. In addition to the large hematomas, patient has many small scattered small ones,some close to the larger hematomas and this further blurs the lines of the exact edges.
[2024-04-25] MEDS: potassium chloride premix 100 ML 25 MEQ IV (10:09)
[2024-04-25] MEDS: fluticasone nasal spray 16gm Btl 1 SPRAY NASAL (15:04)
--- NOTE | 2024-04-25 15:23 | P.PN_ITS ---
Subjective 2 Subjective: - Patient was seen this morning, is at bedside, we discussed his worsening liver function, his hyperbilirubinemia is up to 13.2, hemoglobin down to 7.5 status post 2 units PRBC, platelet count 49, INR 2.78, status post 4 units FFP, creatinine 0.5, AST 88, ALT 50, alk phos 189 ammonia level 84, albumin 2.9, he continues to have worsening bruising of bilateral upper and lower extremities, his back, including a large hematoma of the right buttocks ? I had a detailed discussion with him that he is in acute decompensated liver failure, given his current state he has a high risk of morbidity and mortality, high risk of , and unfortunately I am not a investment manager, and I do not have GI here to help ? Given his history of alcoholism and his current history of alcoholism, he would not be a candidate for liver transplant, ? However given his age, and his social situation given that he has 5 children ages 6-14, no cardiovascular history no history of lung disease, no history of kidney disease, I think he is very deserves a least an evaluation by liver transplant team, hepatology team, at [facility] ? I spoke to transfer center, who spoke to investment manager at [facility], Dr. Hart, they have accepted transfer, patient awaiting a bed, next ?spoke to Buddy, his desires to continue living, he remains a full code he wants everything to be done, thus I would recommend for him to be transferred to [facility], discussed risk and benefits, he voiced understanding, all question answered, agreed to proceed ? Also spoke to patient's about transfer, she is agreeable, discussed risk and benefits, she voiced understanding, all consents agreed to proceed ? Patient has's been accepted at [facility], awaiting a bed Vitals/I&O/Wt Last Vital Signs Temp 98.2 F 04/25/24 12:00 Pulse 103 H 04/25/24 14:00 Resp 22 H 04/25/24 13:08 BP 126/86 04/25/24 12:00 Pulse Ox 96 04/25/24 13:08 O2 Del Method Room Air 04/25/24 12:00 04/25/24 04/25/24 04/25/24 06:59 14:59 22:59 Intake Total 1782 / 5956.5106 450 / 450 100 / 550 Output Total 725 / 725 Balance 1782 / 3686.5106 -275 / -275 100 / -175 Weight last 48 hrs Weight 88.961 kg Weight 88.961 kg Physical Exam 2 Const: COMMON NORMALS: no acute distress OTHER: Jaundice appearing, scleral icterus, Resp: COMMON NORMALS: normal respiratory effort, No retractions, No use of accessory muscles and clear to auscultation bilaterally AUSCULTATION: clear to auscultation bilaterally Cardio: COMMON NORMALS: regular rate, regular rhythm, S1 normal heart sound present and S2 normal heart sound present RATE: regular rate RHYTHM: r egular rhythm HEART SOUNDS: S1 normal heart sound present and S2 normal heart sound present GI: OTHER: Abdomen soft, slightly distended, no guarding, no rebound, rigidity Extremity: COMMON NORMALS: no pedal edema Neuro: OTHER: Alert to person, to place, not to time, follows all commands Psych: COMMON NORMALS: mental status grossly normal Skin: NARRATIVE SKIN EXAM: Multiple bruising/hematoma, largest on the right thigh, measuring 9 x 10 cm Data 04/25/24 05:08 04/25/24 08:25 A&P Assessment and plan (1) Alcohol intoxication: (2) Hypertension: (3) Jaundice: (4) Transaminitis: (5) Advanced cirrhosis of liver: (6) Acute alcoholic pancreatitis: Qualifiers: Acute pancreatitis complication: unspecified Qualified Code(s): K85.20 - Alcohol induced acute pancreatitis without necrosis or infection (7) Chest wall hematoma: (8) High anion gap metabolic acidosis: (9) Hypokalemia: (10) Acute hepatic failure: (11) Acute blood loss anemia: (12) Elevated INR: (13) Hyperbilirubinemia: (14) Hypomagnesemia: (15) Hypophosphatemia: (16) Intramuscular hematoma: Plan Plan #Acute pancreatitis # Acute decompensated liver failure #1.8 cm possible mass at pancreatic head? On MRCP pancreatic head is mildly enlarged and edematous. MRCP examination is not targeted to evaluate the pancreas for mass. As patient is unable to hold his breath for this examination or cooperate recommend follow-up dedicated MRI of the pancreas with and without contrast when the patient is clinically able to cooperate. Otherwise short-term follow-up by CT, multiphase, may be more appropriate due to short of breath holding times. #Advance liver cirrhosis # Acute on chronic liver failure, decompensated, MELD score 24 #Acute alcohol intoxication #Alcohol abuse #Thrombocytopenia # Acute anemia, blood loss, status post 2 units PRBC # Acute on chronic intramuscular hematoma,RIGHT gluteus musculature measuring 6.4 x 4.1 cm with a small amount of increased attenuation blood products. # Multiple bruises # Coagulopathy, status post 4 units FFP #hyponatremia most likely secondary to above #Resolving chest wall hematoma, more warm today, tender to touch, concerns for possible infection, # Increased anion gap with metabolic acidosis, likely starvation ketosis # Lactic acidosis #Hyperbilirubinemia #Falls secondary to alcoholic ataxia? Prior rib fractures -Transaminitis -elevated INR secondary to liver cirrhosis -Hyperbilirubinemia ? Hypoalbuminemia ? Hyponatremia Plan ? Continue lactulose 15 twice daily, rifaximin ? Placed on Protonix 40 IV daily ? Continue clear liquid diet ? Placed on LR 150 cc/h ? Hydralazine 10 every 4 hours as needed for high blood pressure ? Placed on [employer] protocol -Monitor CBC ? Monitor INR ? Anion gap elevated most likely secondary to starvation ketosis ?Alcohol levels 467, [facility] protocol, monitor for severe alcohol withdrawals ? Increased anion gap metabolic acidosis, likely secondary to starvation ketosis, ? Zofran, Reglan ? Monitor for for severe alcohol withdrawals -Monitor chest wall hematoma site, multiple bruising, right thigh hematoma site continue vancomycin, de-escalate to Rocephin, Flagyl, for concerns for secondary bacterial infection -Accepted at [facility], awaiting for bed ? Repeat CBC and INR in the evening Due to prophylaxis: SCDs, anticoagulation relatively contraindicated given thrombocytopenia, anemia, liver cirrhosis Spoke to patient, spoke to , spoke to [facility] transfer line, spoke to nursing staff Attestations 2 Medical Necessity Statement*: Patient requires hospitalization for acute anemia, thrombocytopenia, hyperbilirubinemia, acute decompensated liver failure, elevated INR, acute decompensated, liver failure, waiting for bed at [facility] on antibiotics for concerns for secondary bacterial infection multiple bruises, hematoma Diagnoses Alcohol intoxication F10.929 Hypertension I10 Jaundice R17 Transaminitis R74.01 Advanced cirrhosis of liver K74.60 Acute alcoholic pancreatitis K85.20 Acute pancreatitis complication: unspecified Chest wall hematoma S20.219A High anion gap metabolic acidosis E87.29 Hypokalemia E87.6 Acute hepatic failure K72.00 Acute blood loss anemia D62 Elevated INR R79.1 Hyperbilirubinemia E80.6 Hypomagnesemia E83.42 Hypophosphatemia E83.39 Intramuscular hematoma T14.8XXA
--- NOTE | 2024-04-25 16:59 | PC.NURSE ---
Shift Summary: Uneventful shift. Patient rested in bed throughout the day, occasionally up to the bedside commode. Mental status has worsened. He can still answer person, place, time, and situation questions correctly, but his responses are becoming increasingly delayed. Hallucinations are becoming more frequent, occasionally talking to family members not present. Multiple hematomas scattered across the body. This nurse believes the bruises have gotten worse (see previous notes), bruises are darker in color, size about the same. Accepted to [facility], currently waiting on a bed.
[2024-04-25] MEDS: pantoprazole 40 mg SDV IVP (17:18)
[2024-04-25 17:28] LABS: Basophils % 0.4 %; Eosinophils % 0.9 %; Hematocrit 25.3 % (37-53); Lymphocytes # 0.9 10^3/uL (0.8-4.8); Lymphocytes % 18.9 %; Mean Corpuscular HGB Conc 33.6 g/dL (30-55); Mean Corpuscular Hemoglobin 32.2 pg (27-33); Mean Corpuscular Volume 95.8 fl (82-101); Mean Platelet Volume 10.3 fL (7.4-10.4); Monocytes # 0.8 10^3/uL (0.2-0.9); Monocytes % 17.8 %; Neutrophils # 2.76 10^3/uL (1.8-7.7); Neutrophils % 61.3 %; Nucleated Red Blood Cells % 0 %; Platelet Count 71 10^3/cmm (157-399); Red Blood Count 2.64 10^6/uL (3.85-5.65); Red Cell Distribution Width 21.7 % (12.1-15.1)
[2024-04-25 17:40] LABS: INR 3.01 (0.8-1.2)
[2024-04-25] MEDS: metoclopramide 5 mg/mL SDV 2 mL IVP (18:47)
[2024-04-26] VITALS (32 sets, daily range): BP systolic 108–132; BP diastolic 71–90; PULSE 94–134; RESP 12–22; TEMP 35.7–37.7; O2SAT 91–100; BMI 28.3
[2024-04-26 00:19] LABS: Vancomycin Trough 11.9 ug/mL (10-15)
[2024-04-26] MEDS: metroNIDAZOLE IV 500 MG/100 ML PREMIX 100 MG IV ×3 (00:40→17:12)
[2024-04-26] MEDS: vancomycin 2,000 MG/400 ML PIGGYBACK 200 MG IV ×3 (00:44→17:11)
[2024-04-26] MEDS: ondansetron 2 mg/ML SDV 2 mL 4 MG IVP ×3 (01:08→22:47)
[2024-04-26] MEDS: HYDROmorphone 1 mg/mL INJ 1 mL IVP ×6 (01:10→21:16)
[2024-04-26 03:57] LABS: Basophils % 0.7 %; Eosinophils # 0.1 10^3/uL (0.0-0.8); Eosinophils % 1.1 %; Hematocrit 25.1 % (37-53); Lymphocytes # 0.8 10^3/uL (0.8-4.8); Lymphocytes % 17.5 %; Mean Corpuscular HGB Conc 33.9 g/dL (30-55); Mean Corpuscular Hemoglobin 33.1 pg (27-33); Mean Corpuscular Volume 97.7 fl (82-101); Mean Platelet Volume 9.9 fL (7.4-10.4); Neutrophils % 58.3 %; Nucleated Red Blood Cells % 0.4 %; Platelet Count 73 10^3/cmm (157-399); Red Blood Count 2.57 10^6/uL (3.85-5.65); Red Cell Distribution Width 22.4 % (12.1-15.1); White Blood Count 4.46 10^3/uL (3.29-11.43)
[2024-04-26 04:12] LABS: Blood Urea Nitrogen 3 mg/dL (6-20); Carbon Dioxide 23 mmol/L (22-29); Chloride 102 mmol/L (98-107); Sodium 137 mmol/L (136-145)
[2024-04-26 04:13] LABS: Alanine Aminotransferase 41 U/L (0-41); Albumin Level 2.6 g/dL (3.5-5.2); Alkaline Phosphatase 178 U/L (40-130); Aspartate Amino Transferase 69 U/L (0-40); Calcium 7.6 mg/dL (8.5-10.5); Creatinine Clr Calc Pharmacy 248.2531; Globulin 2.4 g/dL (1.3-4.6); Glomerular Filtration Rate 191.5 mL/min (90-130); Glucose 79 mg/dL (65-115); Magnesium 1.3 mg/dL (1.7-2.3); Osmolality Calculated 279 mOsm/kg (285-295); Phosphorus 1.6 mg/dL (2.5-4.5)
[2024-04-26 04:16] LABS: Total Bilirubin 17.1 mg/dL (0.15-1.2)
[2024-04-26 04:19] LABS: INR 3.14 (0.8-1.2)
[2024-04-26] MEDS: lactated ringers 1,000 ML 100 ML IV (04:22)
[2024-04-26] MEDS: pantoprazole 40 mg SDV IVP ×2 (04:30→17:03)
[2024-04-26] MEDS: sucralfate 1 gm Tablet PO ×4 (06:05→21:16)
[2024-04-26] MEDS: cefTRIAXone 1,000 mg SDV 1000 MG IVP (07:12)
[2024-04-26] MEDS: metoclopramide 5 mg/mL SDV 2 mL IVP (07:53)
[2024-04-26] MEDS: fluticasone nasal spray 16gm Btl 1 SPRAY NASAL (09:00)
[2024-04-26] MEDS: lactulose oral liq 20 gm/30 mL UDC PO ×2 (09:00→21:15)
[2024-04-26] MEDS: folic acid 1 mg Tablet PO (09:00)
[2024-04-26] MEDS: multivitamin therapeutic Tablet 1 TAB PO (09:00)
[2024-04-26] MEDS: potassium phosphate (mEq K) 40 MEQ in sodium chloride 0.9% (100 ml) 100 ML 27.27 MEQ IV (09:01)
[2024-04-26] MEDS: magnesium sulfate premix 1 GM/100 ML PIGGYBACK IV (09:01)
--- NOTE | 2024-04-26 10:07 | PC.NURSE ---
Nurse administered Dilaudid this morning. After giving Dilaudid, patient asked nurse that next time dilaudid is given to push it fast because he likes the gregory that it gives him. Nurse explained the risk of respiratory depression/arrest if opiods are given too quickly or in too high of a dose and it will continue to be a slow push during future administrations.
--- NOTE | 2024-04-26 16:18 | PM.PN ---
Subjective Subjective: Patient was seen this morning, patient's is at bedside, we discussed his acute liver failure, his liver markers are a bit better this morning, bilirubin is at 17.1, hemoglobin stable, will continue to monitor has been accepted at [facility], agreeable to go up to [facility], he is alert to person, to place, not to time, no fevers reported overnight, no nausea, vomiting, does have intermittent abdominal pain complaints Vitals/I&O/Wt Last Vital Signs Temp 96.2 F L 04/26/24 09:00 Pulse 99 04/26/24 14:00 Resp 15 04/26/24 14:00 BP 122/79 04/26/24 14:00 Pulse Ox 95 04/26/24 14:00 O2 Del Method Room Air 04/26/24 14:00 04/26/24 04/26/24 04/26/24 06:59 14:59 22:59 Intake Total 1249.667 / 3638.000 1347.869 / 1347.869 Output Total 600 / 1950 Balance 649.667 / 9579.990 7410.869 / 1347.869 Weight last 48 hrs Weight 88.961 kg Physical Exam Const: COMMON NORMALS: no acute distress and patient oriented x3 OTHER: Jaundiced appearing, scleral icterus Resp: COMMON NORMALS: normal respiratory effort, No retractions, No use of accessory muscles and clear to auscultation bilaterally AUSCULTATION: clear to auscultation bilaterally Cardio: COMMON NORMALS: regular rate, regular rhythm, S1 normal heart sound present and S2 normal heart sound present RATE: regular rate RHYTHM: regular rhythm HEART SOUNDS: S1 normal heart sound present and S2 normal heart sound present GI: OTHER: Abdomen soft, distended, no guarding, no rebound, no rigidity Extremity: COMMON NORMALS: no pedal edema Neuro: COMMON NORMALS: patient oriented x3 Psych: COMMON NORMALS: mental status grossly normal Data 04/26/24 03:35 04/26/24 03:35 A&P Assessment and plan (1) Alcohol intoxication: (2) Hypertension: (3) Jaundice: (4) Transaminitis: (5) Advanced cirrhosis of liver: (6) Acute alcoholic pancreatitis: Qualifiers: Acute pancreatitis complication: unspecified Qualified Code(s): K85.20 - Alcohol induced acute pancreatitis without necrosis or infection (7) Chest wall hematoma: (8) High anion gap metabolic acidosis: (9) Hypokalemia: (10) Acute hepatic failure: (11) Acute blood loss anemia: (12) Elevated INR: (13) Hyperbilirubinemia: (14) Hypomagnesemia: (15) Hypophosphatemia: (16) Intramuscular hematoma: Plan Plan #Acute pancreatitis # Acute decompensated liver failure #1.8 cm possible mass at pancreatic head? On MRCP pancreatic head is mildly enlarged and edematous. MRCP examination is not targeted to evaluate the pancreas for mass. As patient is unable to hold his breath for this examination or cooperate recommend follow-up dedicated MRI of the pancreas with and without contrast when the patient is clinically able to cooperate. Otherwise short-term follow-up by CT, multiphase, may be more appropriate due to short of breath holding times. #Advance liver cirrhosis # Acute on chronic liver failure, decompensated, MELD score 24 #Acute alcohol intoxication #Alcohol abuse #Thrombocytopenia # Acute anemia, blood loss, status post 2 units PRBC # Acute on chronic intramuscular hematoma,RIGHT gluteus musculature measuring 6.4 x 4.1 cm with a small amount of increased attenuation blood products. # Multiple bruises # Coagulopathy, status post 4 units FFP #hyponatremia most likely secondary to above #Resolving chest wall hematoma, more warm today, tender to touch, concerns for possible infection, # Increased anion gap with metabolic acidosis, likely starvation ketosis # Lactic acidosis #Hyperbilirubinemia #Falls secondary to alcoholic ataxia? Prior rib fractures -Transaminitis -elevated INR secondary to liver cirrhosis -Hyperbilirubinemia ? Hypoalbuminemia ? Hyponatremia Plan ? Continue lactulose 15 twice daily, rifaximin ? Placed on Protonix 40 IV daily ? Continue clear liquid diet ? Placed on LR 150 cc/h ? Hydralazine 10 every 4 hours as needed for high blood pressure ? Placed on [facility] protocol -Monitor CBC ? Monitor INR ? Anion gap elevated most likely secondary to starvation ketosis ?Alcohol levels 467, [facility] protocol, monitor for severe alcohol withdrawals ? Increased anion gap metabolic acidosis, likely secondary to starvation ketosis, ? Zofran, Reglan ? Monitor for for severe alcohol withdrawals -Monitor chest wall hematoma site, multiple bruising, right thigh hematoma site continue vancomycin, de-escalate to Rocephin, Flagyl, for concerns for secondary bacterial infection -Accepted at [facility], awaiting for bed ? Repeat CBC and INR in the evening Due to prophylaxis: SCDs, anticoagulation relatively contraindicated given thrombocytopenia, anemia, liver cirrhosis Spoke to patient, spoke to patient's , replace magnesium, potassium, phosphorus IV, continue fluid therapy, continue antibiotics, monitor mentation awaiting a bed at [facility] Medical Necessity Statement*: Patient requires hospitalization for acute decompensated liver failure Diagnoses Alcohol intoxication F10.929 Hypertension I10 Jaundice R17 Transaminitis R74.01 Advanced cirrhosis of liver K74.60 Acute alcoholic pancreatitis K85.20 Acute pancreatitis complication: unspecified Chest wall hematoma S20.219A High anion gap metabolic acidosis E87.29 Hypokalemia E87.6 Acute hepatic failure K72.00 Acute blood loss anemia D62 Elevated INR R79.1 Hyperbilirubinemia E80.6 Hypomagnesemia E83.42 Hypophosphatemia E83.39 Intramuscular hematoma T14.8XXA
[2024-04-27] VITALS (34 sets, daily range): BP systolic 105–135; BP diastolic 66–93; PULSE 97–129; RESP 11–22; TEMP 36.7–37.2; O2SAT 14–99; BMI 28.3
[2024-04-27] MEDS: LORazepam 2 mg/mL INJ 1 mL IVP (00:05)
[2024-04-27] MEDS: HYDROmorphone 1 mg/mL INJ 1 mL IVP ×6 (01:15→22:48)
[2024-04-27] MEDS: vancomycin 2,000 MG/400 ML PIGGYBACK 200 MG IV ×2 (01:16→09:25)
[2024-04-27] MEDS: metroNIDAZOLE IV 500 MG/100 ML PREMIX 100 MG IV ×2 (01:19→09:24)
[2024-04-27 04:02] LABS: Basophils % 0.9 %; Eosinophils % 0.9 %; Hematocrit 28.5 % (37-53); Lymphocytes % 21.6 %; Mean Corpuscular HGB Conc 32.3 g/dL (30-55); Mean Corpuscular Hemoglobin 32.9 pg (27-33); Mean Corpuscular Volume 101.8 fl (82-101); Mean Platelet Volume 9.8 fL (7.4-10.4); Monocytes # 0.8 10^3/uL (0.2-0.9); Monocytes % 18.3 %; Neutrophils # 2.62 10^3/uL (1.8-7.7); Neutrophils % 57.6 %; Nucleated Red Blood Cells % 0 %; Platelet Count 59 10^3/cmm (157-399); Red Cell Distribution Width 24.2 % (12.1-15.1); White Blood Count 4.54 10^3/uL (3.29-11.43)
[2024-04-27 04:10] LABS: INR 3.19 (0.8-1.2)
[2024-04-27 04:17] LABS: Alanine Aminotransferase 37 U/L (0-41); Albumin Level 2.7 g/dL (3.5-5.2); Alkaline Phosphatase 168 U/L (40-130); Blood Urea Nitrogen 4 mg/dL (6-20); Calcium 7.4 mg/dL (8.5-10.5); Carbon Dioxide 20 mmol/L (22-29); Chloride 105 mmol/L (98-107); Creatinine Clr Calc Pharmacy 258.3777; Globulin 2.6 g/dL (1.3-4.6); Glomerular Filtration Rate 191.5 mL/min (90-130); Glucose 77 mg/dL (65-115); Lactate (Lactic Acid level) 1.1 mmol/L (0.5-2.2); Magnesium 1.4 mg/dL (1.7-2.3); Osmolality Calculated 282 mOsm/kg (285-295); Phosphorus 2.6 mg/dL (2.5-4.5); Sodium 138 mmol/L (136-145); Total Protein 5.3 g/dL (6.6-8.7)
[2024-04-27 04:33] LABS: Anion Gap 16.6 (5-19); Aspartate Amino Transferase 66 U/L (0-40); Potassium 3.6 mmol/L (3.5-5.1); Total Bilirubin 19.2 mg/dL (0.15-1.2)
[2024-04-27] MEDS: pantoprazole 40 mg SDV IVP ×2 (05:09→16:59)
[2024-04-27] MEDS: cefTRIAXone 1,000 mg SDV 1000 MG IVP (09:20)
[2024-04-27] MEDS: folic acid 1 mg Tablet PO (09:21)
[2024-04-27] MEDS: multivitamin therapeutic Tablet 1 TAB PO (09:21)
[2024-04-27] MEDS: lactulose oral liq 20 gm/30 mL UDC PO ×2 (09:21→20:44)
[2024-04-27] MEDS: lactated ringers 1,000 ML 50 ML IV (09:22)
[2024-04-27] MEDS: fluticasone nasal spray 16gm Btl 1 SPRAY NASAL (09:23)
[2024-04-27] MEDS: magnesium sulfate premix 1 GM/100 ML PIGGYBACK IV (09:25)
[2024-04-27] MEDS: sucralfate 1 gm Tablet PO ×4 (09:28→20:44)
[2024-04-27] MEDS: water for injection-sterile 10 ML (09:29)
[2024-04-27 10:44] LABS: Basophils % 0.5 %; Eosinophils # 0.1 10^3/uL (0.0-0.8); Eosinophils % 1.2 %; Hematocrit 27.3 % (37-53); Lymphocytes # 0.8 10^3/uL (0.8-4.8); Lymphocytes % 19.3 %; Mean Corpuscular Hemoglobin 33.2 pg (27-33); Mean Corpuscular Volume 100.7 fl (82-101); Mean Platelet Volume 9.6 fL (7.4-10.4); Monocytes # 0.8 10^3/uL (0.2-0.9); Monocytes % 20.2 %; Neutrophils # 2.36 10^3/uL (1.8-7.7); Neutrophils % 58.3 %; Nucleated Red Blood Cells % 0 %; Platelet Count 76 10^3/cmm (157-399); Red Blood Count 2.71 10^6/uL (3.85-5.65); Red Cell Distribution Width 24.1 % (12.1-15.1); White Blood Count 4.05 10^3/uL (3.29-11.43)
--- NOTE | 2024-04-27 14:39 | P.PN_ITS ---
Subjective 2 Subjective: Patient was seen this morning, hemoglobin 9, INR 3.19 bilirubin 19.2, he had an episode of bloody bowel movement this morning, heart rate 115, blood pressures are normotensive but a bit soft, we discussed given his coagulopathy, will give him 1 unit FFP, repeat CBC in the afternoon, awaiting a bed at [place], still agreeable Vitals/I&O/Wt Last Vital Signs Temp 98.2 F 04/27/24 14:00 Pulse 102 H 04/27/24 14:00 Resp 16 04/27/24 14:24 BP 117/77 04/27/24 12:34 Pulse Ox 96 04/27/24 14:24 O2 Del Method Room Air 04/27/24 06:00 04/26/24 04/27/24 04/27/24 22:59 06:59 14:59 Intake Total 670 / 2017.869 1056.667 / 3074.536 1186 / 1186 Output Total 750 / 750 400 / 1150 Balance -80 / 1267.869 656.667 / 1797.255 4034 / 1186 Weight last 48 hrs Weight 97.477 kg Weight 97.477 kg Physical Exam 2 Const: COMMON NORMALS: no acute distress and patient oriented x3 OTHER: Jaundice, scleral icterus Resp: COMMON NORMALS: normal respiratory effort, No retractions, No use of accessory muscles and clear to auscultation bilaterally AUSCULTATION: clear to auscultation bilaterally Cardio: COMMON NORMALS: regular rate, regular rhythm, S1 normal heart sound present and S2 normal heart sound present RATE: regular rate RHYTHM: r egular rhythm HEART SOUNDS: S1 normal heart sound present and S2 normal heart sound present GI: COMMON NORMALS: Normal to inspection, nondistended, normoactive bowel sounds present and non-tender Extremity: COMMON NORMALS: no pedal edema Neuro: COMMON NORMALS: patient oriented x3 Psych: COMMON NORMALS: mental status grossly normal Data 04/27/24 10:14 04/27/24 03:33 A&P Assessment and plan (1) Alcohol intoxication: (2) Hypertension: (3) Jaundice: (4) Transaminitis: (5) Advanced cirrhosis of liver: (6) Acute alcoholic pancreatitis: Qualifiers: Acute pancreatitis complication: unspecified Qualified Code(s): K85.20 - Alcohol induced acute pancreatitis without necrosis or infection (7) Chest wall hematoma: (8) High anion gap metabolic acidosis: (9) Hypokalemia: (10) Acute hepatic failure: (11) Acute blood loss anemia: (12) Elevated INR: (13) Hyperbilirubinemia: (14) Hypomagnesemia: (15) Hypophosphatemia: (16) Intramuscular hematoma: Plan Plan #Acute pancreatitis # Acute decompensated liver failure #1.8 cm possible mass at pancreatic head? On MRCP pancreatic head is mildly enlarged and edematous. MRCP examination is not targeted to evaluate the pancreas for mass. As patient is unable to hold his breath for this examination or cooperate recommend follow-up dedicated MRI of the pancreas with and without contrast when the patient is clinically able to cooperate. Otherwise short-term follow-up by CT, multiphase, may be more appropriate due to short of breath holding times. #Advance liver cirrhosis # Acute on chronic liver failure, decompensated, MELD score 24 #Acute alcohol intoxication #Alcohol abuse #Thrombocytopenia # Acute anemia, blood loss, status post 2 units PRBC # Acute on chronic intramuscular hematoma,RIGHT gluteus musculature measuring 6.4 x 4.1 cm with a small amount of increased attenuation blood products. # Multiple bruises # Coagulopathy, status post 4 units FFP #hyponatremia most likely secondary to above #Resolving chest wall hematoma, more warm today, tender to touch, concerns for possible infection, # Increased anion gap with metabolic acidosis, likely starvation ketosis # Lactic acidosis #Hyperbilirubinemia #Falls secondary to alcoholic ataxia? Prior rib fractures -Transaminitis -elevated INR secondary to liver cirrhosis -Hyperbilirubinemia ? Hypoalbuminemia ? Hyponatremia Plan ? Continue lactulose 15 twice daily, rifaximin ? Placed on Protonix 40 IV daily ? Continue clear liquid diet ? Placed on LR 150 cc/h ? Hydralazine 10 every 4 hours as needed for high blood pressure ? Placed on [facility] protocol -Monitor CBC ? Monitor INR ? Anion gap elevated most likely secondary to starvation ketosis ?Alcohol levels 467, [facility] protocol, monitor for severe alcohol withdrawals ? Increased anion gap metabolic acidosis, likely secondary to starvation ketosis, ? Zofran, Reglan ? Monitor for for severe alcohol withdrawals -Monitor chest wall hematoma site, multiple bruising, right thigh hematoma site continue vancomycin, de-escalate to Rocephin, Flagyl, for concerns for secondary bacterial infection -Accepted at [facility], awaiting for bed ? Repeat CBC and INR in the evening Due to prophylaxis: SCDs, anticoagulation relatively contraindicated given thrombocytopenia, anemia, liver cirrhosis Plan for today, given his episode of bloody stools, concerns for GI bleed, continue Protonix, Carafate, recheck CBC in the afternoon, 1 unit FFP monitor hemodynamics closely Attestations 2 Medical Necessity Statement*: Patient requires hospitalization for acute liver failure Diagnoses Alcohol intoxication F10.929 Hypertension I10 Jaundice R17 Transaminitis R74.01 Advanced cirrhosis of liver K74.60 Acute alcoholic pancreatitis K85.20 Acute pancreatitis complication: unspecified Chest wall hematoma S20.219A High anion gap metabolic acidosis E87.29 Hypokalemia E87.6 Acute hepatic failure K72.00 Acute blood loss anemia D62 Elevated INR R79.1 Hyperbilirubinemia E80.6 Hypomagnesemia E83.42 Hypophosphatemia E83.39 Intramuscular hematoma T14.8XXA
[2024-04-27 15:46] LABS: Basophils % 0.6 %; Eosinophils % 0.8 %; Hematocrit 25.8 % (37-53); Lymphocytes # 0.6 10^3/uL (0.8-4.8); Lymphocytes % 16.8 %; Mean Corpuscular HGB Conc 32.2 g/dL (30-55); Mean Corpuscular Hemoglobin 32.8 pg (27-33); Mean Platelet Volume 9.8 fL (7.4-10.4); Monocytes # 0.8 10^3/uL (0.2-0.9); Monocytes % 21.8 %; Neutrophils # 2.17 10^3/uL (1.8-7.7); Neutrophils % 59.7 %; Nucleated Red Blood Cells % 0 %; Platelet Count 65 10^3/cmm (157-399); Red Blood Count 2.53 10^6/uL (3.85-5.65); Red Cell Distribution Width 24.3 % (12.1-15.1); White Blood Count 3.63 10^3/uL (3.29-11.43)
[2024-04-27] MEDS: doxycycline 100 mg Tablet PO (16:59)
[2024-04-27] MEDS: nystatin powder 15 gm Btl 1 APPLIC TOPICAL (20:42)
[2024-04-27] MEDS: ondansetron 2 mg/ML SDV 2 mL 4 MG IVP (22:48)
[2024-04-28] VITALS (20 sets, daily range): BP systolic 102–131; BP diastolic 66–86; PULSE 79–113; RESP 12–22; TEMP 36.8–37.1; O2SAT 93–99
[2024-04-28] MEDS: metoclopramide 5 mg/mL SDV 2 mL IVP (03:20)
[2024-04-28] MEDS: pantoprazole 40 mg SDV IVP ×2 (03:20→15:47)
[2024-04-28] MEDS: HYDROmorphone 1 mg/mL INJ 1 mL IVP ×5 (03:21→20:21)
[2024-04-28 04:02] LABS: Basophils % 0.5 %; Hematocrit 26.7 % (37-53); Lymphocytes # 0.9 10^3/uL (0.8-4.8); Lymphocytes % 22.8 %; Mean Corpuscular HGB Conc 33.3 g/dL (30-55); Mean Corpuscular Hemoglobin 33.3 pg (27-33); Mean Platelet Volume 9.8 fL (7.4-10.4); Monocytes # 0.9 10^3/uL (0.2-0.9); Monocytes % 22.8 %; Neutrophils # 2.15 10^3/uL (1.8-7.7); Neutrophils % 52.2 %; Nucleated Red Blood Cells % 0 %; Platelet Count 86 10^3/cmm (157-399); Red Blood Count 2.67 10^6/uL (3.85-5.65); Red Cell Distribution Width 24.7 % (12.1-15.1); White Blood Count 4.12 10^3/uL (3.29-11.43)
[2024-04-28 04:24] LABS: Lactate (Lactic Acid level) 1.1 mmol/L (0.5-2.2)
[2024-04-28 04:32] LABS: Alanine Aminotransferase 34 U/L (0-41); Albumin Level 2.7 g/dL (3.5-5.2); Alkaline Phosphatase 156 U/L (40-130); Anion Gap 16.3 (5-19); Aspartate Amino Transferase 55 U/L (0-40); Blood Urea Nitrogen 6 mg/dL (6-20); Calcium 7.6 mg/dL (8.5-10.5); Carbon Dioxide 22 mmol/L (22-29); Chloride 107 mmol/L (98-107); Creatinine Clr Calc Pharmacy 258.3777; Globulin 2.6 g/dL (1.3-4.6); Glomerular Filtration Rate 191.5 mL/min (90-130); Glucose 79 mg/dL (65-115); Magnesium 1.6 mg/dL (1.7-2.3); Osmolality Calculated 291 mOsm/kg (285-295); Phosphorus 2.3 mg/dL (2.5-4.5); Potassium 3.3 mmol/L (3.5-5.1); Sodium 142 mmol/L (136-145); Total Protein 5.3 g/dL (6.6-8.7)
[2024-04-28 04:46] LABS: Total Bilirubin 18.7 mg/dL (0.15-1.2)
[2024-04-28] MEDS: lactated ringers 1,000 ML 50 ML IV (06:18)
[2024-04-28] MEDS: sucralfate 1 gm Tablet PO ×4 (06:18→20:00)
[2024-04-28] MEDS: cefTRIAXone 1,000 mg SDV 1000 MG IVP (08:42)
[2024-04-28] MEDS: doxycycline 100 mg Tablet PO ×2 (08:43→17:02)
[2024-04-28] MEDS: nystatin powder 15 gm Btl 1 APPLIC TOPICAL (08:43)
[2024-04-28] MEDS: multivitamin therapeutic Tablet 1 TAB PO (08:43)
[2024-04-28] MEDS: fluticasone nasal spray 16gm Btl 1 SPRAY NASAL (08:43)
[2024-04-28] MEDS: lactulose oral liq 20 gm/30 mL UDC PO ×2 (08:43→19:58)
[2024-04-28] MEDS: folic acid 1 mg Tablet PO (08:43)
[2024-04-28] MEDS: magnesium sulfate premix 1 GM/100 ML PIGGYBACK IV (08:50)
[2024-04-28] MEDS: potassium phosphate (mEq K) 40 MEQ in sodium chloride 0.9% (100 ml) 100 ML 27.27 MEQ IV (10:15)
--- NOTE | 2024-04-28 13:27 | P.PN_ITS ---
Subjective 2 Subjective: Patient was seen this morning, no bloody stools over the last 12 hours, hemodynamic stable, alert awake, following all commands, no pain complaints, I he wants us to consider to advance his diet, we discussed moving him to [facility], he is on room air blood pressures are reasonable, he is a bit tachycardic he has not had any bloody stools, his hemodynamics are stable, hemoglobin stable at 8.9, he is agreeable. I did discuss with him that he should not get out of bed without assistance with nursing staff given his hemoglobin 8.9 his INR of 3 he has history of recurrent falls, and with his history of recurrent hematomas he is a high risk of falling. He should stay in bed at all times, and if he needs to get up out of bed, he must hit his call light, and nursing staff must escort him out of bed, as he has a high fall risk, and morbidity and mortality associated with his falls. He voiced understanding, all questions. Spoke to GI at [facility], spoke to GI at [facility] Vitals/I&O/Wt Last Vital Signs Temp 98.7 F 04/28/24 12:33 Pulse 107 H 04/28/24 12:33 Resp 17 04/28/24 12:33 BP 109/72 04/28/24 12:33 Pulse Ox 96 04/28/24 12:33 O2 Del Method Room Air 04/28/24 12:33 04/27/24 04/28/24 04/28/24 22:59 06:59 14:59 Intake Total 417 / 1603 1000 / 2603 430 / 430 Output Total 100 / 100 175 / 275 Balance 317 / 1503 825 / 2328 430 / 430 Weight last 48 hrs Weight 98.203 kg Weight 97.477 kg Weight 97.477 kg Physical Exam 2 Const: COMMON NORMALS: no acute distress and patient oriented x3 OTHER: Scleral icterus, jaundice Resp: COMMON NORMALS: normal respiratory effort, No retractions, No use of accessory muscles and clear to auscultation bilaterally AUSCULTATION: clear to auscultation bilaterally Cardio: COMMON NORMALS: regular rate, regular rhythm, S1 normal heart sound present and S2 normal heart sound present RATE: regular rate RHYTHM: r egular rhythm HEART SOUNDS: S1 normal heart sound present and S2 normal heart sound present GI: COMMON NORMALS: Normal to inspection, nondistended, normoactive bowel sounds present and non-tender Extremity: COMMON NORMALS: no pedal edema Neuro: COMMON NORMALS: patient oriented x3, CN's II-XII intact bilaterally and moves all extremities Psych: COMMON NORMALS: mental status grossly normal Data 04/28/24 13:15 04/28/24 03:44 A&P Assessment and plan (1) Alcohol intoxication: (2) Hypertension: (3) Jaundice: (4) Transaminitis: (5) Advanced cirrhosis of liver: (6) Acute alcoholic pancreatitis: Qualifiers: Acute pancreatitis complication: unspecified Qualified Code(s): K85.20 - Alcohol induced acute pancreatitis without necrosis or infection (7) Chest wall hematoma: (8) High anion gap metabolic acidosis: (9) Hypokalemia: (10) Acute hepatic failure: (11) Acute blood loss anemia: (12) Elevated INR: (13) Hyperbilirubinemia: (14) Hypomagnesemia: (15) Hypophosphatemia: (16) Intramuscular hematoma: (17) Bloody stools: Plan Plan #Acute pancreatitis, resolved # Acute decompensated liver failure #1.8 cm possible mass at pancreatic head? On MRCP pancreatic head is mildly enlarged and edematous. MRCP examination is not targeted to evaluate the pancreas for mass. As patient is unable to hold his breath for this examination or cooperate recommend follow-up dedicated MRI of the pancreas with and without contrast when the patient is clinically able to cooperate. Otherwise short-term follow-up by CT, multiphase, may be more appropriate due to short of breath holding times. #Advance liver cirrhosis? CT of the abdomen shows marked hepatomegaly with diffuse fatty infiltration of the liver, splenomegaly # Acute on chronic liver failure, decompensated, MELD score 24 #Acute alcohol intoxication, resolved #Alcohol abuse #Thrombocytopenia # Acute anemia, blood loss, status post 2 units PRBC # Acute on chronic intramuscular hematoma,RIGHT gluteus musculature measuring 6.4 x 4.1 cm with a small amount of increased attenuation blood products. 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 Prior rib fractures -Transaminitis -elevated INR secondary to liver cirrhosis -Hyperbilirubinemia ? Hypoalbuminemia ? Hyponatremia, resolved -Bloody stools, bright red blood per rectum, no bleeding in the last 12 hours, hemoglobin stable at 8.9, INR 3, lactic acid within normal limits, hemodynamic stable -sinus tachycardia, will monitor Plan ? Continue lactulose 15 twice daily, rifaximin ? Placed on Protonix 40 IV daily -Continue Rocephin, SBP prophylaxis ? Continue clear liquid diet ? Placed on LR 50 cc/h ? Hydralazine 10 every 4 hours as needed for high blood pressure ? [facility] protocol -Monitor CBC ? Monitor INR ? Anion gap elevated most likely secondary to starvation ketosis ?Alcohol levels 467, [facility] protocol, monitor for severe alcohol withdrawals, out of withdrawl windo2 ? Increased anion gap metabolic acidosis, likely secondary to starvation ketosis, ? Zofran, Reglan ? Monitor for for severe alcohol withdrawals -Given multiple bruises, multiple hematomas, including gluteal hematoma, continue doxycycline to cover for prophylaxis for hematoma/skin infection -Monitor chest wall hematoma site, multiple bruising, right thigh hematoma site continue vancomycin, de-escalate to Rocephin, Flagyl, for concerns for secondary bacterial infection -For bloody stool will monitor closely, could be a lower GI bleed, and or bleeding from hemorrhoids/anal fissure, however has not had any bleeding in the last 12 hours, no bloody or black stools reported this morning, hemodynamics are stable, he is a bit tachycardic, lactic acid within normal limits hemoglobin is improved to 8.9 INR stable at 3. Yesterday when he did have episode of bloody stool, he was given 1 unit of FFP 04/27/2024, no blood required to be given. Plan is to continue to monitor hemoglobin, monitor INR, monitor for recurrent bloody stools. -Accepted at [facility], awaiting for bed ? Repeat CBC and INR in the evening Due to prophylaxis: SCDs, anticoagulation relatively contraindicated given thrombocytopenia, anemia, liver cirrhosis Plan for today, will moved to medical floors, monitor hemoglobin closely monitor for bloody stools, monitor CBC, Attestations 2 Medical Necessity Statement*: Patient requires hospitalization for acute liver failure, concerns for slow slow lower GI bleed, anemia, thrombocytopenia, bloody stools, Diagnoses Alcohol intoxication F10.929 Hypertension I10 Jaundice R17 Transaminitis R74.01 Advanced cirrhosis of liver K74.60 Acute alcoholic pancreatitis K85.20 Acute pancreatitis complication: unspecified Chest wall hematoma S20.219A High anion gap metabolic acidosis E87.29 Hypokalemia E87.6 Acute hepatic failure K72.00 Acute blood loss anemia D62 Elevated INR R79.1 Hyperbilirubinemia E80.6 Hypomagnesemia E83.42 Hypophosphatemia E83.39 Intramuscular hematoma T14.8XXA Bloody stools K92.1
[2024-04-28 13:33] LABS: Basophils % 0.9 %; Eosinophils % 0.7 %; Hematocrit 28.1 % (37-53); Lymphocytes # 0.9 10^3/uL (0.8-4.8); Lymphocytes % 19.5 %; Mean Corpuscular HGB Conc 33.1 g/dL (30-55); Mean Corpuscular Hemoglobin 33.5 pg (27-33); Mean Corpuscular Volume 101.1 fl (82-101); Mean Platelet Volume 9.7 fL (7.4-10.4); Monocytes % 21.7 %; Neutrophils # 2.53 10^3/uL (1.8-7.7); Neutrophils % 56.8 %; Nucleated Red Blood Cells % 0 %; Platelet Count 87 10^3/cmm (157-399); Red Blood Count 2.78 10^6/uL (3.85-5.65); Red Cell Distribution Width 24.9 % (12.1-15.1); White Blood Count 4.46 10^3/uL (3.29-11.43)
[2024-04-28 19:03] LABS: Hematocrit 26.9 % (37-53)
[2024-04-29] VITALS (15 sets, daily range): BP systolic 100–129; BP diastolic 65–89; PULSE 62–113; RESP 16–19; TEMP 36.8–37.2; O2SAT 93–98
[2024-04-29] MEDS: HYDROmorphone 1 mg/mL INJ 1 mL IVP ×6 (00:25→22:42)
[2024-04-29] MEDS: pantoprazole 40 mg SDV IVP ×2 (04:25→16:00)
[2024-04-29 04:34] LABS: Basophils % 0.7 %; Eosinophils % 0.5 %; Lymphocytes # 0.9 10^3/uL (0.8-4.8); Lymphocytes % 20.8 %; Mean Corpuscular HGB Conc 32.4 g/dL (30-55); Mean Corpuscular Volume 101.8 fl (82-101); Mean Platelet Volume 10.3 fL (7.4-10.4); Monocytes # 0.8 10^3/uL (0.2-0.9); Monocytes % 19.4 %; Neutrophils # 2.51 10^3/uL (1.8-7.7); Neutrophils % 58.1 %; Nucleated Red Blood Cells % 0 %; Platelet Count 97 10^3/cmm (157-399); Red Blood Count 2.85 10^6/uL (3.85-5.65); Red Cell Distribution Width 25.2 % (12.1-15.1); White Blood Count 4.32 10^3/uL (3.29-11.43)
[2024-04-29 04:45] LABS: INR 3.15 (0.8-1.2)
[2024-04-29 05:03] LABS: Alanine Aminotransferase 34 U/L (0-41); Albumin Level 2.9 g/dL (3.5-5.2); Alkaline Phosphatase 151 U/L (40-130); Anion Gap 17.3 (5-19); Aspartate Amino Transferase 65 U/L (0-40); Blood Urea Nitrogen 6 mg/dL (6-20); Calcium 7.5 mg/dL (8.5-10.5); Carbon Dioxide 21 mmol/L (22-29); Chloride 106 mmol/L (98-107); Creatinine Clr Calc Pharmacy 259.2408; Globulin 2.2 g/dL (1.3-4.6); Glomerular Filtration Rate 191.5 mL/min (90-130); Glucose 90 mg/dL (65-115); Magnesium 1.7 mg/dL (1.7-2.3); NT Pro B Type Natriuretic Pept 173 pg/mL (0-125); Osmolality Calculated 289 mOsm/kg (285-295); Phosphorus 2.5 mg/dL (2.5-4.5); Potassium 3.3 mmol/L (3.5-5.1); Sodium 141 mmol/L (136-145); Total Protein 5.1 g/dL (6.6-8.7)
[2024-04-29 05:26] LABS: Total Bilirubin 21.4 mg/dL (0.15-1.2)
[2024-04-29] MEDS: sucralfate 1 gm Tablet PO ×4 (06:03→20:06)
[2024-04-29] MEDS: multivitamin therapeutic Tablet 1 TAB PO (08:25)
[2024-04-29] MEDS: doxycycline 100 mg Tablet PO ×2 (08:25→18:01)
[2024-04-29] MEDS: folic acid 1 mg Tablet PO (08:26)
[2024-04-29] MEDS: lactulose oral liq 20 gm/30 mL UDC PO ×2 (08:27→20:06)
[2024-04-29] MEDS: cefTRIAXone 1,000 mg SDV 1000 MG IVP (08:42)
[2024-04-29] MEDS: lidocaine 1% 5 ML in potassium chloride premix 100 ML 20 ML IV (09:28)
[2024-04-29] MEDS: fluticasone nasal spray 16gm Btl 1 SPRAY NASAL (10:40)
[2024-04-29] MEDS: nystatin powder 15 gm Btl 1 APPLIC TOPICAL (10:41)
[2024-04-29] MEDS: lactated ringers 1,000 ML 50 ML IV (10:41)
[2024-04-29] MEDS: LORazepam 2 mg/mL INJ 1 mL 1 MG IVP ×3 (11:49→20:08)
[2024-04-30] VITALS (12 sets, daily range): BP systolic 96–109; BP diastolic 61–72; PULSE 94–103; RESP 15–18; TEMP 36.7–37.1; O2SAT 93–96
[2024-04-30] MEDS: LORazepam 2 mg/mL INJ 1 mL 1 MG IVP ×4 (02:27→21:04)
[2024-04-30] MEDS: HYDROmorphone 1 mg/mL INJ 1 mL IVP ×5 (02:52→21:03)
[2024-04-30 05:15] LABS: Eosinophils % 0.7 %; Hematocrit 26.8 % (37-53); Lymphocytes # 0.7 10^3/uL (0.8-4.8); Lymphocytes % 15.9 %; Mean Corpuscular HGB Conc 32.8 g/dL (30-55); Mean Corpuscular Hemoglobin 33.6 pg (27-33); Mean Corpuscular Volume 102.3 fl (82-101); Mean Platelet Volume 10.2 fL (7.4-10.4); Monocytes # 0.7 10^3/uL (0.2-0.9); Monocytes % 15.7 %; Neutrophils # 2.75 10^3/uL (1.8-7.7); Neutrophils % 66.5 %; Nucleated Red Blood Cells % 0 %; Platelet Count 115 10^3/cmm (157-399); Red Blood Count 2.62 10^6/uL (3.85-5.65); Red Cell Distribution Width 25.2 % (12.1-15.1); White Blood Count 4.14 10^3/uL (3.29-11.43)
[2024-04-30 05:34] LABS: Alanine Aminotransferase 34 U/L (0-41); Albumin Level 2.6 g/dL (3.5-5.2); Alkaline Phosphatase 137 U/L (40-130); Anion Gap 15.3 (5-19); Aspartate Amino Transferase 63 U/L (0-40); Blood Urea Nitrogen 8 mg/dL (6-20); Calcium 7.3 mg/dL (8.5-10.5); Carbon Dioxide 20 mmol/L (22-29); Chloride 106 mmol/L (98-107); Creatinine Clr Calc Pharmacy 259.5642; Globulin 2.3 g/dL (1.3-4.6); Glomerular Filtration Rate 191.5 mL/min (90-130); Glucose 90 mg/dL (65-115); Magnesium 1.7 mg/dL (1.7-2.3); Osmolality Calculated 284 mOsm/kg (285-295); Phosphorus 2.7 mg/dL (2.5-4.5); Potassium 3.3 mmol/L (3.5-5.1); Sodium 138 mmol/L (136-145); Total Protein 4.9 g/dL (6.6-8.7)
[2024-04-30 05:44] LABS: NT Pro B Type Natriuretic Pept 163 pg/mL (0-125)
[2024-04-30] MEDS: sucralfate 1 gm Tablet PO ×4 (06:51→21:03)
[2024-04-30] MEDS: doxycycline 100 mg Tablet PO ×2 (08:33→16:46)
[2024-04-30] MEDS: multivitamin therapeutic Tablet 1 TAB PO (08:33)
[2024-04-30] MEDS: folic acid 1 mg Tablet PO (08:33)
[2024-04-30] MEDS: lactulose oral liq 20 gm/30 mL UDC PO ×2 (08:33→21:03)
[2024-04-30] MEDS: cefTRIAXone 1,000 mg SDV 1000 MG IVP (08:34)
[2024-04-30] MEDS: pantoprazole 40 mg SDV IVP ×2 (08:36→16:47)
[2024-04-30] MEDS: nystatin powder 15 gm Btl 1 APPLIC TOPICAL ×2 (08:45→16:51)
[2024-04-30] MEDS: water for injection-sterile SDV 10 mL IVP (08:45)
[2024-04-30] MEDS: fluticasone nasal spray 16gm Btl 1 SPRAY NASAL (08:45)
[2024-04-30] MEDS: lactated ringers 1,000 ML 50 ML IV ×2 (08:45→09:58)
[2024-04-30] MEDS: magnesium lactate 84 mg Tablet PO ×2 (09:58→21:03)
[2024-04-30] MEDS: potassium phosphate (mEq K) 40 MEQ in sodium chloride 0.9% (100 ml) 100 ML 27.27 MEQ IV (09:58)
--- NOTE | 2024-04-30 13:40 | P.PN_ITS ---
Subjective 2 Subjective: progress note from 04/29/2024 -Patient was seen this morning, is at bedside, he reports feeling quite anxious this morning, he is concerned about his liver function remaining elevated, he tells me that he does not want to , I had a detailed discussion with him about alcohol cessation, he is still in acute decompensated liver failure, I was honest with him he does have a risk of morbidity and mortality, I would recommend for him to be transferred to [facility], so he can be eval by hepatology, they can consider any other interventions given his young age, Vitals/I&O/Wt Last Vital Signs Temp 98.7 F 04/30/24 11:12 Pulse 99 04/30/24 11:12 Resp 17 04/30/24 12:36 BP 100/63 04/30/24 11:12 Pulse Ox 95 04/30/24 11:12 O2 Del Method Room Air 04/30/24 11:12 04/29/24 04/30/24 04/30/24 22:59 06:59 14:59 Intake Total 345 / 1445 800 / 2245 253.333 / 253.333 Balance 345 / 1345 800 / 2145 253.333 / 253.333 Weight last 48 hrs Weight 99.025 kg Weight 98.475 kg Physical Exam 2 Const: COMMON NORMALS: no acute distress and patient oriented x3 Resp: COMMON NORMALS: normal respiratory effort, No retractions, No use of accessory muscles and clear to auscultation bilaterally AUSCULTATION: clear to auscultation bilaterally Cardio: COMMON NORMALS: regular rate, regular rhythm, S1 normal heart sound present and S2 normal heart sound present RATE: regular rate RHYTHM: r egular rhythm HEART SOUNDS: S1 normal heart sound present and S2 normal heart sound present GI: COMMON NORMALS: Normal to inspection, nondistended, normoactive bowel sounds present and non-tender Extremity: COMMON NORMALS: no pedal edema Neuro: COMMON NORMALS: patient oriented x3 Psych: COMMON NORMALS: mental status grossly normal Skin: NARRATIVE SKIN EXAM: Several bruises, scleral icterus, jaundice, multiple bruises Data 04/30/24 04:51 04/30/24 04:51 A&P Assessment and plan (1) Alcohol intoxication: (2) Hypertension: (3) Jaundice: (4) Transaminitis: (5) Advanced cirrhosis of liver: (6) Acute alcoholic pancreatitis: Qualifiers: Acute pancreatitis complication: unspecified Qualified Code(s): K85.20 - Alcohol induced acute pancreatitis without necrosis or infection (7) Chest wall hematoma: (8) High anion gap metabolic acidosis: (9) Hypokalemia: (10) Acute hepatic failure: (11) Acute blood loss anemia: (12) Elevated INR: (13) Hyperbilirubinemia: (14) Hypomagnesemia: (15) Hypophosphatemia: (16) Intramuscular hematoma: (17) Bloody stools: Plan Plan #Acute pancreatitis, resolved # Acute decompensated liver failure #1.8 cm possible mass at pancreatic head? On MRCP pancreatic head is mildly enlarged and edematous. MRCP examination is not targeted to evaluate the pancreas for mass. As patient is unable to hold his breath for this examination or cooperate recommend follow-up dedicated MRI of the pancreas with and without contrast when the patient is clinically able to cooperate. Otherwise short-term follow-up by CT, multiphase, may be more appropriate due to short of breath holding times. #Advance liver cirrhosis? CT of the abdomen shows marked hepatomegaly with diffuse fatty infiltration of the liver, splenomegaly # Acute on chronic liver failure, decompensated, MELD score 24 #Acute alcohol intoxication, resolved #Alcohol abuse #Thrombocytopenia # Acute anemia, blood loss, status post 2 units PRBC # Acute on chronic intramuscular hematoma,RIGHT gluteus musculature measuring 6.4 x 4.1 cm with a small amount of increased attenuation blood products. 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 Prior rib fractures -Transaminitis -elevated INR secondary to liver cirrhosis -Hyperbilirubinemia ? Hypoalbuminemia ? Hyponatremia, resolved -Bloody stools, bright red blood per rectum, no bleeding in the last 12 hours, hemoglobin stable at 8.9, INR 3, lactic acid within normal limits, hemodynamic stable -sinus tachycardia, will monitor Plan ? Continue lactulose 15 twice daily, rifaximin ? Placed on Protonix 40 IV daily -Continue Rocephin, SBP prophylaxis ? Continue clear liquid diet ? Placed on LR 50 cc/h ? Hydralazine 10 every 4 hours as needed for high blood pressure ? [facility] protocol -Monitor CBC ? Monitor INR ? Anion gap elevated most likely secondary to starvation ketosis ?Alcohol levels 467, [facility] protocol, monitor for severe alcohol withdrawals, out of withdrawl windo2 ? Increased anion gap metabolic acidosis, likely secondary to starvation ketosis, ? Zofran, Reglan ? Monitor for for severe alcohol withdrawals -Given multiple bruises, multiple hematomas, including gluteal hematoma, continue doxycycline to cover for prophylaxis for hematoma/skin infection -Monitor chest wall hematoma site, multiple bruising, right thigh hematoma site continue vancomycin, de-escalate to Rocephin, Flagyl, for concerns for secondary bacterial infection -For bloody stool will monitor closely, could be a lower GI bleed, and or bleeding from hemorrhoids/anal fissure, however has not had any bleeding in the last 12 hours, no bloody or black stools reported this morning, hemodynamics are stable, he is a bit tachycardic, lactic acid within normal limits hemoglobin is improved to 8.9 INR stable at 3. Yesterday when he did have episode of bloody stool, he was given 1 unit of FFP 04/27/2024, no blood required to be given. Plan is to continue to monitor hemoglobin, monitor INR, monitor for recurrent bloody stools. -Accepted at [facility], awaiting for bed ? Repeat CBC and INR in the evening Due to prophylaxis: SCDs, anticoagulation relatively contraindicated given thrombocytopenia, anemia, liver cirrhosis Attestations 2 Medical Necessity Statement*: Patient requires hospitalization for acute decompensated liver failure Diagnoses Alcohol intoxication F10.929 Hypertension I10 Jaundice R17 Transaminitis R74.01 Advanced cirrhosis of liver K74.60 Acute alcoholic pancreatitis K85.20 Acute pancreatitis complication: unspecified Chest wall hematoma S20.219A High anion gap metabolic acidosis E87.29 Hypokalemia E87.6 Acute hepatic failure K72.00 Acute blood loss anemia D62 Elevated INR R79.1 Hyperbilirubinemia E80.6 Hypomagnesemia E83.42 Hypophosphatemia E83.39 Intramuscular hematoma T14.8XXA Bloody stools K92.1
--- NOTE | 2024-04-30 14:04 | P.PN_ITS ---
Subjective 2 Subjective: Patient was seen this morning, patient complains of fatigue, malaise, no nausea, no vomiting ? Patient had episode of nonsustained V. tach, relatively asymptomatic magnesium 1.7 on p.o. magnesium replacement therapy receiving IV potassium and phosphorus replacement therapy start low-dose Coreg Vitals/I&O/Wt Last Vital Signs Temp 98.7 F 04/30/24 11:12 Pulse 99 04/30/24 11:12 Resp 17 04/30/24 12:36 BP 100/63 04/30/24 11:12 Pulse Ox 95 04/30/24 11:12 O2 Del Method Room Air 04/30/24 11:12 04/29/24 04/30/24 04/30/24 22:59 06:59 14:59 Intake Total 345 / 1445 800 / 2245 253.333 / 253.333 Balance 345 / 1345 800 / 2145 253.333 / 253.333 Weight last 48 hrs Weight 99.025 kg Weight 98.475 kg Physical Exam 2 Const: COMMON NORMALS: no acute distress and patient oriented x3 OTHER: Jaundiced appearing, scleral icterus, multiple bruising Resp: COMMON NORMALS: normal respiratory effort, No retractions, No use of accessory muscles and clear to auscultation bilaterally AUSCULTATION: clear to auscultation bilaterally Cardio: COMMON NORMALS: regular rate, regular rhythm, S1 normal heart sound present and S2 normal heart sound present RATE: regular rate RHYTHM: r egular rhythm HEART SOUNDS: S1 normal heart sound present and S2 normal heart sound present GI: COMMON NORMALS: Normal to inspection, nondistended, normoactive bowel sounds present and non-tender Extremity: COMMON NORMALS: no pedal edema Neuro: COMMON NORMALS: patient oriented x3 Psych: COMMON NORMALS: mental status grossly normal Data 04/30/24 04:51 04/30/24 04:51 A&P Assessment and plan (1) Alcohol intoxication: (2) Hypertension: (3) Jaundice: (4) Transaminitis: (5) Advanced cirrhosis of liver: (6) Acute alcoholic pancreatitis: Qualifiers: Acute pancreatitis complication: unspecified Qualified Code(s): K85.20 - Alcohol induced acute pancreatitis without necrosis or infection (7) Chest wall hematoma: (8) High anion gap metabolic acidosis: (9) Hypokalemia: (10) Acute hepatic failure: (11) Acute blood loss anemia: (12) Elevated INR: (13) Hyperbilirubinemia: (14) Hypomagnesemia: (15) Hypophosphatemia: (16) Intramuscular hematoma: (17) Bloody stools: Plan Plan #Acute pancreatitis, resolved # Acute decompensated liver failure #1.8 cm possible mass at pancreatic head? On MRCP pancreatic head is mildly enlarged and edematous. MRCP examination is not targeted to evaluate the pancreas for mass. As patient is unable to hold his breath for this examination or cooperate recommend follow-up dedicated MRI of the pancreas with and without contrast when the patient is clinically able to cooperate. Otherwise short-term follow-up by CT, multiphase, may be more appropriate due to short of breath holding times. #Advance liver cirrhosis? CT of the abdomen shows marked hepatomegaly with diffuse fatty infiltration of the liver, splenomegaly # Acute on chronic liver failure, decompensated, MELD score 24 #Acute alcohol intoxication, resolved #Alcohol abuse #Thrombocytopenia # Acute anemia, blood loss, status post 2 units PRBC # Acute on chronic intramuscular hematoma,RIGHT gluteus musculature measuring 6.4 x 4.1 cm with a small amount of increased attenuation blood products. 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 Prior rib fractures -Transaminitis -elevated INR secondary to liver cirrhosis -Hyperbilirubinemia ? Hypoalbuminemia ? Hyponatremia, resolved -Bloody stools, bright red blood per rectum, no bleeding in the last 12 hours, hemoglobin stable at 8.9, INR 3, lactic acid within normal limits, hemodynamic stable -sinus tachycardia, will monitor Plan ? Continue lactulose 15 twice daily, rifaximin ? Placed on Protonix 40 IV daily -Continue Rocephin, SBP prophylaxis ? Continue clear liquid diet ? Placed on LR 50 cc/h ? Hydralazine 10 every 4 hours as needed for high blood pressure ? [facility] protocol -Monitor CBC ? Monitor INR ? Anion gap elevated most likely secondary to starvation ketosis ?Alcohol levels 467, [facility] protocol, monitor for severe alcohol withdrawals, out of withdrawl windo2 ? Increased anion gap metabolic acidosis, likely secondary to starvation ketosis, ? Zofran, Reglan ? Monitor for for severe alcohol withdrawals -Given multiple bruises, multiple hematomas, including gluteal hematoma, continue doxycycline to cover for prophylaxis for hematoma/skin infection -Monitor chest wall hematoma site, multiple bruising, right thigh hematoma site continue vancomycin, de-escalate to Rocephin, Flagyl, for concerns for secondary bacterial infection -For bloody stool will monitor closely, could be a lower GI bleed, and or bleeding from hemorrhoids/anal fissure, however has not had any bleeding in the last 12 hours, no bloody or black stools reported this morning, hemodynamics are stable, he is a bit tachycardic, lactic acid within normal limits hemoglobin is improved to 8.9 INR stable at 3. Yesterday when he did have episode of bloody stool, he was given 1 unit of FFP 04/27/2024, no blood required to be given. Plan is to continue to monitor hemoglobin, monitor INR, monitor for recurrent bloody stools. -Accepted at [facility], awaiting for bed Due to prophylaxis: SCDs, anticoagulation relatively contraindicated given thrombocytopenia, anemia, liver cirrhosis Plan for today replace potassium, phosphorus, magnesium, monitor hemodynamics, start Coreg, monitor nonsustained V. tach awaiting for bed at [facility], bili is 19, INR 3.7, hemoglobin 8.8, platelet count 115 Attestations 2 Medical Necessity Statement*: Patient requires acute decompensated liver failure, Diagnoses Alcohol intoxication F10.929 Hypertension I10 Jaundice R17 Transaminitis R74.01 Advanced cirrhosis of liver K74.60 Acute alcoholic pancreatitis K85.20 Acute pancreatitis complication: unspecified Chest wall hematoma S20.219A High anion gap metabolic acidosis E87.29 Hypokalemia E87.6 Acute hepatic failure K72.00 Acute blood loss anemia D62 Elevated INR R79.1 Hyperbilirubinemia E80.6 Hypomagnesemia E83.42 Hypophosphatemia E83.39 Intramuscular hematoma T14.8XXA Bloody stools K92.1
[2024-04-30] MEDS: carvedilol 3.125 mg Tablet PO (16:47)
[2024-05-01] VITALS (9 sets, daily range): BP systolic 94–109; BP diastolic 51–76; PULSE 91–102; RESP 16–18; TEMP 36.4–37.1; O2SAT 92–94
--- NOTE | 2024-05-01 02:45 | PC.NURSE ---
Stool noted to be orange color.
[2024-05-01 05:03] LABS: Basophils % 0.6 %; Eosinophils % 0.8 %; Hematocrit 26.7 % (37-53); Lymphocytes % 19.4 %; Mean Corpuscular HGB Conc 33.3 g/dL (30-55); Mean Corpuscular Hemoglobin 34.6 pg (27-33); Mean Corpuscular Volume 103.9 fl (82-101); Mean Platelet Volume 10.8 fL (7.4-10.4); Monocytes # 0.7 10^3/uL (0.2-0.9); Monocytes % 13.5 %; Neutrophils % 65.3 %; Nucleated Red Blood Cells % 0 %; Platelet Count 138 10^3/cmm (157-399); Red Blood Count 2.57 10^6/uL (3.85-5.65); Red Cell Distribution Width 25.1 % (12.1-15.1)
[2024-05-01 05:09] LABS: INR 4.15 (0.8-1.2)
[2024-05-01 05:20] LABS: Alanine Aminotransferase 32 U/L (0-41); Albumin Level 2.6 g/dL (3.5-5.2); Alkaline Phosphatase 129 U/L (40-130); Anion Gap 14.1 (5-19); Aspartate Amino Transferase 63 U/L (0-40); Blood Urea Nitrogen 8 mg/dL (6-20); Calcium 7.3 mg/dL (8.5-10.5); Carbon Dioxide 21 mmol/L (22-29); Chloride 107 mmol/L (98-107); Creatinine Clr Calc Pharmacy 263.8786; Globulin 2.4 g/dL (1.3-4.6); Glomerular Filtration Rate 191.5 mL/min (90-130); Glucose 97 mg/dL (65-115); Magnesium 1.7 mg/dL (1.7-2.3); Osmolality Calculated 286 mOsm/kg (285-295); Phosphorus 2.8 mg/dL (2.5-4.5); Potassium 3.1 mmol/L (3.5-5.1); Sodium 139 mmol/L (136-145)
[2024-05-01 05:23] LABS: Total Bilirubin 21.1 mg/dL (0.15-1.2)
[2024-05-01 05:33] LABS: NT Pro B Type Natriuretic Pept 271 pg/mL (0-125)
[2024-05-01] MEDS: HYDROmorphone 1 mg/mL INJ 1 mL IVP ×3 (05:42→16:53)
[2024-05-01] MEDS: LORazepam 2 mg/mL INJ 1 mL 1 MG IVP ×3 (05:54→16:53)
[2024-05-01] MEDS: sucralfate 1 gm Tablet PO ×2 (05:54→09:50)
[2024-05-01] MEDS: lactated ringers 1,000 ML 50 ML IV (05:54)
[2024-05-01] MEDS: ondansetron 2 mg/ML SDV 2 mL 4 MG IVP (06:05)
[2024-05-01] MEDS: doxycycline 100 mg Tablet PO (08:29)
[2024-05-01] MEDS: carvedilol 3.125 mg Tablet PO (08:29)
[2024-05-01] MEDS: fluticasone nasal spray 16gm Btl 1 SPRAY NASAL (08:30)
[2024-05-01] MEDS: multivitamin therapeutic Tablet 1 TAB PO (08:30)
[2024-05-01] MEDS: nystatin powder 15 gm Btl 1 APPLIC TOPICAL (08:30)
[2024-05-01] MEDS: folic acid 1 mg Tablet PO (08:30)
[2024-05-01] MEDS: magnesium lactate 84 mg Tablet PO (08:30)
[2024-05-01] MEDS: lactulose oral liq 20 gm/30 mL UDC PO (08:30)
[2024-05-01] MEDS: pantoprazole 40 mg SDV IVP (08:31)
[2024-05-01] MEDS: cefTRIAXone 1,000 mg SDV 1000 MG IVP (08:37)
[2024-05-01] MEDS: lidocaine 1% 5 ML in potassium chloride premix 100 ML 26.25 ML IV (08:39)
--- NOTE | 2024-05-01 14:18 | PC.NURSE ---
Pt requested PRN ativan and dilaudid, however, pt is unable to hold eyes open or carry on a conversation with me. Speech is sluggish. Pt is only scoring a 1 on CIWA. This nurse informed Dr. Hopson that I felt uncomfortable administering these meds when pt is in this condition. Dr. Hopson expressed understanding and requested to monitor pt for now.
--- NOTE | 2024-05-01 15:41 | P.PN_ITS ---
Subjective 2 Subjective: Patient was seen this morning alert to person, to place, to time, follows all commands, he is jaundice, scleral icterus, no nausea, no vomiting, no bloody stools T. bili 21.1, INR 4 Vitals/I&O/Wt Last Vital Signs Temp 98.6 F 05/01/24 12:00 Pulse 91 05/01/24 12:00 Resp 16 05/01/24 12:00 BP 101/58 05/01/24 12:00 Pulse Ox 94 05/01/24 12:00 O2 Del Method Room Air 05/01/24 12:00 05/01/24 05/01/24 05/01/24 06:59 14:59 22:59 Intake Total 1116.667 / 1547.4852 941.667 / 941.667 Balance 1116.667 / 1547.4852 941.667 / 941.667 Weight last 48 hrs Weight 102.104 kg Weight 99.025 kg Physical Exam 2 Const: COMMON NORMALS: no acute distress and patient oriented x3 OTHER: jaundice, sclaeral icterus Resp: COMMON NORMALS: normal respiratory effort, No retractions, No use of accessory muscles and clear to auscultation bilaterally AUSCULTATION: clear to auscultation bilaterally Cardio: COMMON NORMALS: regular rate, regular rhythm, S1 normal heart sound present and S2 normal heart sound present RATE: regular rate RHYTHM: r egular rhythm HEART SOUNDS: S1 normal heart sound present and S2 normal heart sound present GI: COMMON NORMALS: Normal to inspection, nondistended, normoactive bowel sounds present and non-tender Extremity: COMMON NORMALS: no pedal edema Neuro: COMMON NORMALS: patient oriented x3 Psych: COMMON NORMALS: mental status grossly normal Data 05/01/24 04:17 05/01/24 04:17 A&P Assessment and plan (1) Alcohol intoxication: (2) Hypertension: (3) Jaundice: (4) Transaminitis: (5) Advanced cirrhosis of liver: (6) Acute alcoholic pancreatitis: Qualifiers: Acute pancreatitis complication: unspecified Qualified Code(s): K85.20 - Alcohol induced acute pancreatitis without necrosis or infection (7) Chest wall hematoma: (8) High anion gap metabolic acidosis: (9) Hypokalemia: (10) Acute hepatic failure: (11) Acute blood loss anemia: (12) Elevated INR: (13) Hyperbilirubinemia: (14) Hypomagnesemia: (15) Hypophosphatemia: (16) Intramuscular hematoma: (17) Bloody stools: Plan Plan #Acute pancreatitis, resolved # Acute decompensated liver failure #1.8 cm possible mass at pancreatic head? On MRCP pancreatic head is mildly enlarged and edematous. MRCP examination is not targeted to evaluate the pancreas for mass. As patient is unable to hold his breath for this examination or cooperate recommend follow-up dedicated MRI of the pancreas with and without contrast when the patient is clinically able to cooperate. Otherwise short-term follow-up by CT, multiphase, may be more appropriate due to short of breath holding times. #Advance liver cirrhosis? CT of the abdomen shows marked hepatomegaly with diffuse fatty infiltration of the liver, splenomegaly # Acute on chronic liver failure, decompensated, MELD score 24 #Acute alcohol intoxication, resolved #Alcohol abuse #Thrombocytopenia # Acute anemia, blood loss, status post 2 units PRBC # Acute on chronic intramuscular hematoma,RIGHT gluteus musculature measuring 6.4 x 4.1 cm with a small amount of increased attenuation blood products. 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 Prior rib fractures -Transaminitis -elevated INR secondary to liver cirrhosis -Hyperbilirubinemia ? Hypoalbuminemia ? Hyponatremia, resolved -Bloody stools, bright red blood per rectum, no bleeding in the last 12 hours, hemoglobin stable at 8.9, INR 3, lactic acid within normal limits, hemodynamic stable -sinus tachycardia, will monitor Plan ? Continue lactulose 15 twice daily, rifaximin ? Placed on Protonix 40 IV daily -Continue Rocephin, SBP prophylaxis ? Continue clear liquid diet ? Placed on LR 50 cc/h ? Hydralazine 10 every 4 hours as needed for high blood pressure ? [facility] protocol -Monitor CBC ? Monitor INR ? Anion gap elevated most likely secondary to starvation ketosis ?Alcohol levels 467, [facility] protocol, monitor for severe alcohol withdrawals, out of withdrawl windo2 ? Increased anion gap metabolic acidosis, likely secondary to starvation ketosis, ? Zofran, Reglan ? Monitor for for severe alcohol withdrawals -Given multiple bruises, multiple hematomas, including gluteal hematoma, continue doxycycline to cover for prophylaxis for hematoma/skin infection -Monitor chest wall hematoma site, multiple bruising, right thigh hematoma site continue vancomycin, de-escalate to Rocephin, Flagyl, for concerns for secondary bacterial infection -For bloody stool will monitor closely, could be a lower GI bleed, and or bleeding from hemorrhoids/anal fissure, however has not had any bleeding in the last 12 hours, no bloody or black stools reported this morning, hemodynamics are stable, he is a bit tachycardic, lactic acid within normal limits hemoglobin is improved to 8.9 INR stable at 3. Yesterday when he did have episode of bloody stool, he was given 1 unit of FFP 04/27/2024, no blood required to be given. Plan is to continue to monitor hemoglobin, monitor INR, monitor for recurrent bloody stools. -Accepted at [facility], awaiting for bed Due to prophylaxis: SCDs, anticoagulation relatively contraindicated given thrombocytopenia, anemia, liver cirrhosis Plan for today monitor closely, replace electrolytes, awaiting for bed at [facility], [place] 2 Medical Necessity Statement*: Patient requires hospitalization for acute liver failure, elevated INR to elevated T. bili Diagnoses Alcohol intoxication F10.929 Hypertension I10 Jaundice R17 Transaminitis R74.01 Advanced cirrhosis of liver K74.60 Acute alcoholic pancreatitis K85.20 Acute pancreatitis complication: unspecified Chest wall hematoma S20.219A High anion gap metabolic acidosis E87.29 Hypokalemia E87.6 Acute hepatic failure K72.00 Acute blood loss anemia D62 Elevated INR R79.1 Hyperbilirubinemia E80.6 Hypomagnesemia E83.42 Hypophosphatemia E83.39 Intramuscular hematoma T14.8XXA Bloody stools K92.1
--- NOTE | 2024-05-01 17:01 | PC.NURSE ---
This nurse called report to OLIMPIA Hair at [facility] at 1700.
--- NOTE | 2024-05-02 17:24 | P.TS_ITS ---
Transfer Summary Providers Date of Admission: 04/20/24 21:10 Date of Discharge/Transfer: 05/02/24 Attending Provider at Admission: Elizabeth Ramey MD Attending Provider at Transfer: Troy Hopson MD Primary Care Provider: Antonio Alvarado MD Transfer Plans: Anticipated date of transfer: 05/02/24 . Diagnoses at Discharge Discharge Diagnosis (1) Alcohol intoxication: Status: Acute (2) Hypertension: Status: Acute (3) Jaundice: Status: Acute (4) Transaminitis: Status: Acute (5) Advanced cirrhosis of liver: Status: Acute (6) Acute alcoholic pancreatitis: Status: Acute Qualifiers: Acute pancreatitis complication: unspecified Qualified Code(s): K85.20 - Alcohol induced acute pancreatitis without necrosis or infection (7) Chest wall hematoma: Status: Acute (8) High anion gap metabolic acidosis: Status: Resolved (9) Hypokalemia: Status: Inactive (10) Acute hepatic failure: Status: Acute (11) Acute blood loss anemia: Status: Acute (12) Elevated INR: Status: Acute (13) Hyperbilirubinemia: Status: Resolved (14) Hypomagnesemia: Status: Inactive (15) Hypophosphatemia: Status: Acute (16) Intramuscular hematoma: Status: Acute (17) Bloody stools: Status: Acute Reason for Visit Reason for Visit BACK PAIN S/P FALL Hospital Course Hospital Course Buddy Cowan is a 33 year old male With past medical history of alcohol related liver cirrhosis, lytic lesion of bony pelvis no diagnosis of malignancy, alcohol abuse, jaundice, chest wall hematoma requiring transfer to higher level of care presented to the hospital today by ambulance complaining of diffuse pain and multiple falls recently. Patient intoxicated with alcohol at this time. He was last seen on for similar complaints and did drive intoxicated at that time as well. He does have rib fractures on the left side from December 2023 that resulted in hematoma formation. He has not been able to obtain pain medication since last 1 week secondary to insurance issues. Apparently patient was on Dilaudid 2 mg twice a day as per the ?. Patient does not answer when asked if he has any plans to quit drinking. He does state he drinks wine every day. He cannot quantify how much he drinks. Spouse states he has been falling and having multiple injuries to back and buttock region. Today he was dizzy while taking a shower and fell and hit the back of his head. He has not seen a housekeeping associate recently. They state they have an appointment upcoming in August. He has seen them in the past however. Patient is on lactulose at home. He states he is allergic to omeprazole however does okay with pantoprazole and would like his medication switched. In ER today found to be hyponatremic sodium 122, thrombocytopenic platelet count 41, potassium 3.5, total bilirubin 11.6 which was similar to previous admission as well with elevated AST ALT similar to prior admission with blood alcohol level 467 today. Lipase elevated at [address] abdomen pelvis shows acute pancreatitis no drainable fluid collection or necrosis or hemorrhage. Questionable 1.8 x 1.8 cm low-density area in pancreatic head. Consider MRI to exclude underlying mass lesion upon resolution of patient's acute clinical illness. I does show a partially visualized resolving hematoma in the left pectoral region. Patient was admitted to [facility] for acute pancreatitis, acute decompensated liver failure, alcohol withdrawal, acute anemia, thrombocytopenia, and acute on chronic intramuscular hematoma right gluteal musculature, multiple bruises, coagulopathy, hyponatremia, lactic acidosis, hyperbilirubinemia hyperammonemia, bloody stools. For his acute pancreatitis, improved with conservative intervention management, IV fluids, bowel rest, transition to clear liquid diet Acute anemia, requiring 2 units PRBC Coagulopathy, status post 7 units FFP Acute on chronic intramuscular hematoma,RIGHT gluteus musculature measuring 6.4 x 4.1 cm with a small amount of increased attenuation blood products. -Conservatively managed as above Monitor for alcohol withdrawal, [facility] protocol For acute decompensated liver failure, monitored as inpatient, due to persistent hyperbilirubinemia, coagulopathy, anemia, transferred to [place] Did develop a low-grade GI bleed during his hospitalization, managed conservatively as above, hemoglobin stable, no hemodynamic compromise Physical Exam Const: COMMON NORMALS: no acute distress and patient oriented x3 Resp: COMMON NORMALS: normal respiratory effort, No retractions, No use of accessory muscles and clear to auscultation bilaterally AUSCULTATION: clear to auscultation bilaterally Cardio: COMMON NORMALS: regular rate, regular rhythm, S1 normal heart sound present and S2 normal heart sound present RATE: regular rate RHYTHM: regular rhythm HEART SOUNDS: S1 normal heart sound present and S2 normal heart sound present GI: COMMON NORMALS: Normal to inspection, nondistended, normoactive bowel sounds present Extremity: COMMON NORMALS: no pedal edema Neuro: COMMON NORMALS: patient oriented x3 Psych: COMMON NORMALS: mental status grossly normal TS Data Studies Completed and Pending Completed Studies During Hospitalization Category Date Time Status CT abdomen pelvis w con* [id number] Stat Cat Scan 04/20/24 18:[address] chest abdomen pelvis [[place] [id number] Cat Scan 04/24/24 08:31 Completed ] Stat CT head wo con* [id number] Stat Cat Scan 04/20/24 22:27 Completed CXRP [XR chest 1V portable [id number]] Routine Exams 04/23/24 09:16 Completed XR lumbar spine 2-3V* [id number] Stat Exams 04/20/24 18:25 Completed XR thoracic spine 3V* [id number] Stat Exams 04/20/24 18:25 Completed MR MRCP [id number] Stat MRI 04/22/24 08:26 Completed [place] chest [id number] Routine Ultrasound 04/21/24 17:20 Completed Laboratory Last Values WBC 5.20 10^3/uL (3.29-11.43) 05/01/24 04:17 RBC 2.57 10^6/uL (3.85-5.65) L 05/01/24 04:17 Hgb 8.90 g/dL (11.27-16.99) L 05/01/24 04:17 Hct 26.7 % (37-53) L 05/01/24 04:17 MCV 103.9 fl (82-101) H 05/01/24 04:17 MCH 34.6 pg (27-33) H 05/01/24 04:17 MCHC 33.3 g/dL (30-55) 05/01/24 04:17 RDW 25.1 % (12.1-15.1) H 05/01/24 04:17 Plt Count 138 10^3/cmm (157-399) L 05/01/24 04:17 MPV 10.8 fL (7.4-10.4) H 05/01/24 04:17 Neut % (Auto) 65.3 % 05/01/24 04:17 Lymph % (Auto) 19.4 % 05/01/24 04:17 [place] % (Auto) 13.5 % 05/01/24 04:17 Eos % (Auto) 0.8 % 05/01/24 04:17 Baso % (Auto) 0.6 % 05/01/24 04:17 Neut # (Auto) 3.40 10^3/uL (1.8-7.7) 05/01/24 04:17 Lymph # (Auto) 1.0 10^3/uL (0.8-4.8) 05/01/24 04:17 [place] # (Auto) 0.7 10^3/uL (0.2-0.9) 05/01/24 04:17 Eos # (Auto) 0.0 10^3/uL (0.0-0.8) 05/01/24 04:17 Baso # (Auto) 0.0 10^3/uL (0.0-0.1) 05/01/24 04:17 Nucleated RBC % (auto) 0 % 05/01/24 04:17 Nucleated RBCs # 0.0 /100WBC 05/01/24 04:17 ESR 28 mm/hr (0-10) H 04/21/24 06:07 PT 41.80 SECONDS (12.1-14.9) H 05/01/24 04:17 INR 4.15 (0.8-1.2) H 05/01/24 04:17 APTT 48.7 SECONDS (23.9-36.7) H 04/20/24 17:43 Sodium 139 mmol/L (136-145) 05/01/24 04:17 Potassium 3.1 mmol/L (3.5-5.1) L 05/01/24 04:17 Chloride 107 mmol/L (98-107) 05/01/24 04:17 Carbon Dioxide 21 mmol/L (22-29) L 05/01/24 04:17 Anion Gap 14.1 (5-19) 05/01/24 04:17 BUN 8 mg/dL (6-20) 05/01/24 04:17 Creatinine 0.5 mg/dL (0.7-1.2) L 05/01/24 04:17 GFR Calculation 191.5 mL/min (90-130) H 05/01/24 04:17 Glucose 97 mg/dL (65-115) 05/01/24 04:17 POC Glucose 86 mg/dL (70-110) 04/21/24 13:14 Serum Osmolality 328 mOsm/kg (278-305) H 04/20/24 06:07 Calculated Osmolality 286 mOsm/kg (285-295) 05/01/24 04:17 Lactic Acid 4.1 mmol/L (0.5-2.2) H* 04/20/24 17:43 Lactic Acid (Sepsis) 2.1 mmol/L (0.5-2.2) 04/21/24 06:07 Lactate 1.1 mmol/L (0.5-2.2) 04/28/24 03:44 Calcium 7.3 mg/dL (8.5-10.5) L 05/01/24 04:17 Phosphorus 2.8 mg/dL (2.5-4.5) 05/01/24 04:17 Magnesium 1.7 mg/dL (1.7-2.3) 05/01/24 04:17 Total Bilirubin 21.1 mg/dL (0.15-1.2) H* 05/01/24 04:17 AST 63 U/L (0-40) H 05/01/24 04:17 ALT 32 U/L (0-41) 05/01/24 04:17 Alkaline Phosphatase 129 U/L (40-130) 05/01/24 04:17 Ammonia 84 umol/L (16-60) H 04/25/24 08:25 Creatine Kinase 48 U/L (39-308) 04/23/24 02:37 C-Reactive Protein 44.2 mg/L (0.0-4.9) H 04/24/24 03:03 NT-Pro-B Natriuret Pep 271 pg/mL (0-125) H 05/01/24 04:17 Total Protein 5.0 g/dL (6.6-8.7) L 05/01/24 04:17 Albumin 2.6 g/dL (3.5-5.2) L 05/01/24 04:17 Globulin 2.4 g/dL (1.3-4.6) 05/01/24 04:17 Lipase 598 U/L (13-60) H 04/20/24 17:43 Procalcitonin 0.51 ng/mL (0-0.5) H 04/24/24 03:03 Urine Color [place] (Yellow) A 04/20/24 05:45 Urine Appearance Cloudy (CLEAR) A 04/20/24 05:45 Urine pH 7 (5-7) 04/20/24 05:45 Ur Specific [place] 1.010 (1.005-1.030) 04/20/24 05:45 Urine Protein Trace (Negative) 04/20/24 05:45 Urine Glucose (UA) Norm (Normal) 04/20/24 05:45 Urine Ketones 2+ (Negative) H 04/20/24 05:45 Urine Blood 2+ (Negative) H 04/20/24 05:45 Urine Nitrate Negative (Negative) 04/20/24 05:45 Urine Bilirubin 2+ (Negative) H 04/20/24 05:45 Urine Urobilinogen 1 mg/dL (Negative) H 04/20/24 05:45 Ur Leukocyte Esterase Negative (Negative) 04/20/24 05:45 Urine RBC 5-10 /hpf (0-2) H 04/20/24 05:45 Urine WBC 5-10 /hpf (0-5) H 04/20/24 05:45 Ur Squamous Epith Cells 0-4 /hpf (0-5) H 04/20/24 05:45 Amorphous Sediment Not Reportable 04/20/24 05:45 Urine Bacteria 1+ /hpf (NONE) H 04/20/24 05:45 Urine Osmolality 442 mOsm/kg (50-1200) 04/20/24 05:45 Ur Random Sodium 14 mmol/L 04/20/24 05:45 Vancomycin Trough 20.0 ug/mL (10-15) H 04/27/24 15:40 Urine Opiates Screen Positive ng/mL (Negative) H 04/20/24 05:45 Ur Barbiturates Screen Negative ng/mL (Negative) 04/20/24 05:45 Ur Phencyclidine Scrn Negative ng/mL (Negative) 04/20/24 05:45 Ur Amphetamines Screen Negative ng/mL (Negative) 04/20/24 05:45 U Benzodiazepines Scrn Negative ng/mL (Negative) 04/20/24 05:45 Urine Cocaine Screen Negative ng/mL (Negative) 04/20/24 05:45 U Marijuana (THC) Screen Negative ng/mL (Negative) 04/20/24 05:45 Ethyl Alcohol 467 mg/dL (0-10) H* 04/20/24 17:43 Blood Type O Positive 04/27/24 10:14 Rho(D) Type Rh positive 04/27/24 10:14 Antibody Screen Negative 04/22/24 10:47 Crossmatch See Detail 04/22/24 10:47 Radiology Impressions Lumbar Spine X-Ray 04/20/24 18:25 IMPRESSION: 1. There are degenerative changes in the lumbar spine as described above. No evidence for acute fracture. 2. There is gaseous distension of small bowel loops with possible small bowel dilatation. This is not optimally evaluated by radiograph. Consider CT scan abdomen/pelvis for further evaluation if there is clinical suspicion for small bowel obstruction. Thoracic Spine X-Ray 04/20/24 18:25 IMPRESSION: No acute findings. Abdomen/Pelvis CT 04/20/24 18:40 IMPRESSION: 1. Acute pancreatitis, as described above. Correlate with serum amylase and lipase levels. No drainable fluid collection. No necrosis or hemorrhage. Follow-up to resolution is recommended. 2. Questionable 1.8 x 1.8 cm low-density area in the pancreatic head/uncinate process. Consider MRI to exclude underlying mass lesion upon resolution of the patient's acute clinical issues. 3. Enlarged, fatty liver. 4. Partially visualized resolving hematoma in the left pectoral region. 5. Unchanged lucencies in the bilateral iliac bones. 6. Additional findings, as above. Head CT 04/20/24 22:27 IMPRESSION: No acute intracranial abnormality. Chest Ultrasound 04/21/24 17:20 IMPRESSION: Apparent subcutaneous complex hematoma measuring 5 x 2 cm in the left anterior chest, underlying infection is not excluded based on imaging alone. Cholangiopancreatography MRI 04/22/24 08:26 IMPRESSION: 1. Study is compromised by motion artifact. Patient was unable to hold his breath for this examination. 2. Normal common bile duct. 3. Minimally hydropic gallbladder with a small amount of adjacent fluid. There is fluid extending into the paracolic gutter and also surrounding the pancreas from pancreatitis. This is only a small amount of fluid. 4. Pancreatic head is mildly enlarged and edematous. MRCP examination is not targeted to evaluate the pancreas for mass. As patient is unable to hold his breath for this examination or cooperate recommend follow-up dedicated MRI of the pancreas with and without contrast when the patient is clinically able to cooperate. Otherwise short-term follow-up by CT, multiphase, may be more appropriate due to short of breath holding times. Chest X-Ray 04/23/24 09:16 IMPRESSION: See above Chest/Abdomen/Pelvis CT 04/24/24 08:31 IMPRESSION: 1. Similar-appearing mixed attenuation LEFT chest wall hematoma. 2. Small RIGHT and tiny LEFT pleural effusions. 3. Stable findings of acute pancreatitis as previously described. No drainable fluid collections. No evidence of pancreatic necrosis. 4. Marked hepatomegaly with diffuse fatty filtration of the liver. Splenomegaly. 5. No evidence of retroperitoneal hematoma. 6. Intramuscular hematoma within the RIGHT gluteus musculature measuring 6.4 x 4.1 cm with a small amount of increased attenuation blood products. 7. Stable enhancing lesion in the RIGHT hepatic lobe measuring 2.3 cm may represent a hemangioma. 8. Stable lytic lesion/lucencies in the bony pelvis more prominent in the iliac wings. 9. Hydropic fluid distended gallbladder. Notified Troy Hopson MD at 04/24/2024 10:13 AM. Recent Clincial Data Last Vital Signs Temp 98.8 F 05/01/24 16:00 Pulse 94 05/01/24 16:00 Resp 18 05/01/24 16:53 BP 95/57 05/01/24 16:00 Pulse Ox 92 05/01/24 16:00 O2 Del Method Room Air 05/01/24 16:00 Intake & Output/Weight 04/30/24 05/01/24 05/02/24 05/03/24 06:59 06:59 06:59 06:59 Intake Total 2245 / 2245 1547.4852 / 1547.4852 941.667 / 941.667 Output Total 100 / 100 Balance 2145 / 2145 1547.4852 / 1547.4852 941.667 / 941.667 Weight 99.025 kg 102.104 kg Vitals Last Vital Signs Temp 98.8 F 05/01/24 16:00 Pulse 94 05/01/24 16:00 Resp 18 05/01/24 16:53 BP 95/57 05/01/24 16:00 Pulse Ox 92 05/01/24 16:00 O2 Del Method Room Air 05/01/24 16:00 TS Medications Medications Discontinued Medications Carvedilol (Carvedilol 3.125 Mg Tablet) 3.125 mg PO BID [facility] Last Admin: 05/01/24 08:29 Dose: 3.125 mg Cefepime HCl (Cefepime 1,000 Mg Sdv) 1,000 mg IVP Q12H [facility]; Protocol Last Admin: 04/23/24 05:59 Dose: 1,000 mg Ceftriaxone Sodium (Ceftriaxone 1,000 Mg Sdv) 1,000 mg IVP Q24H [facility]; Protocol Last Admin: 05/01/24 08:37 Dose: 1,000 mg Doxycycline Monohydrate (Doxycycline 100 Mg Tablet) 100 mg PO BID [facility]; Protocol Last Admin: 05/01/24 08:29 Dose: 100 mg Fluticasone Propionate (Fluticasone Nasal [place] 16gm Btl) 1 spray NASAL DAILY [facility] Last Admin: 05/01/24 08:30 Dose: 1 spray Folic Acid (Folic Acid 1 Mg Tablet) 1 mg PO DAILY [facility] Last Admin: 05/01/24 08:30 Dose: 1 mg Hydromorphone HCl (Hydromorphone 1 Mg/Ml Inj 1 Ml) 1 mg IVP Q4H PRN PRN Reason: PAIN Last Admin: 05/01/24 16:53 Dose: 1 mg Hydromorphone HCl (Hydromorphone 1 Mg/Ml Inj 1 Ml) 1 mg IVP ONCE ONE Stop: 04/24/24 09:14 Last Admin: 04/24/24 11:12 Dose: 1 mg Hydromorphone HCl (Hydromorphone 1 Mg/Ml Inj 1 Ml) 1 mg IVP ONCE ONE Stop: 04/25/24 09:57 Last Admin: 04/25/24 10:10 Dose: 1 mg Sodium Chloride (Sodium Chloride 0.9%) 1,000 mls @ 999 mls/hr IV .Q1H1M ONE Stop: 04/20/24 19:06 Last Infusion: 04/20/24 20:16 Dose: Infused Lactated Ringer's (Lactated Ringers) 1,000 mls @ 100 mls/hr IV .Q10H [facility] Last Infusion: 04/26/24 04:22 Dose: Infused Potassium Chloride (K-Hilario) 100 mls @ 25 mls/hr IV Q4H [facility] Stop: 04/21/24 02:29 Last Infusion: 04/21/24 03:50 Dose: Infused Magnesium Sulfate/Dextrose (Magnesium Sulfate Premix) 1 gm in 100 mls @ 200 mls/hr IV ONCE ONE Stop: 04/21/24 09:25 Last Infusion: 04/21/24 10:06 Dose: Infused Vancomycin HCl / Sodium (Chloride) 250 mls @ 0 mls/hr [id number] PROTOCOL [facility]; Protocol Metronidazole (Flagyl Iv) 500 mg in 100 mls @ 100 mls/hr IV Q8H [facility]; Protocol Last Infusion: 04/27/24 10:24 Dose: Infused Vancomycin/PEG/NADA/Lysine/Water (Vancocin) 1,750 mg in 350 mls @ 233.333 mls/hr IV Q8H [facility] Last Admin: 04/28/24 19:19 Dose: Not Given Potassium Phosphate 40 meq/ (Sodium Chloride) 108.5106 mls @ 27.273 mls/hr IV ONCE ONE Stop: 04/22/24 12:23 Last Admin: 04/22/24 11:20 Dose: 27.27 mls/hr Magnesium Sulfate/Dextrose (Magnesium Sulfate Premix) 1 gm in 100 mls @ 200 mls/hr IV ONCE ONE Stop: 04/22/24 08:54 Last Infusion: 04/22/24 10:35 Dose: Infused Vancomycin/PEG/NADA/Lysine/Water (Vancocin) 1,750 mg in 350 mls @ 233.333 mls/hr IV Q12H [facility] Last Infusion: 04/23/24 12:00 Dose: Infused Sterile Water (Water) Confirm Administered Dose 10 mls @ as directed .ROUTE .RUST-MED ONE Stop: 04/22/24 18:28 Last Admin: 04/23/24 19:36 Dose: Not Given Potassium Phosphate 40 meq/ (Sodium Chloride) 108.5106 mls @ 27.273 mls/hr IV ONCE ONE Stop: 04/23/24 11:15 Last Infusion: 04/23/24 14:35 Dose: Infused Cefepime HCl 1,000 mg/ Sodium (Chloride) 50 mls @ 100 mls/hr IV Q12H [facility] Last Infusion: 04/25/24 10:26 Dose: Infused Vancomycin/PEG/NADA/Lysine/Water (Vancocin) 1,750 mg in 350 mls @ 233.333 mls/hr IV Q8H [facility] Last Admin: 04/25/24 21:42 Dose: Not Given Potassium Phosphate 40 meq/ (Sodium Chloride) 108.5106 mls @ 27.273 mls/hr IV ONCE ONE Stop: 04/24/24 11:54 Last Infusion: 04/24/24 17:56 Dose: Infused Magnesium Sulfate/Dextrose (Magnesium Sulfate Premix) 1 gm in 100 mls @ 200 mls/hr IV ONCE ONE Stop: 04/24/24 08:25 Last Infusion: 04/24/24 11:56 Dose: Infused Sodium Chloride (Sodium Chloride 0.9% (100 Ml)) Confirm Administered Dose 100 mls @ as directed .ROUTE .STK-MED ONE Stop: 04/24/24 11:48 Vancomycin/PEG/NADA/Lysine/Water (Vancocin) 2,000 mg in 400 mls @ 200 mls/hr IV Q8H [facility] Last Infusion: 04/27/24 11:25 Dose: Infused Potassium Chloride (K-Hilario) 100 mls @ 25 mls/hr IV Q4H [facility] Stop: 04/25/24 13:29 Last Infusion: 04/25/24 18:04 Dose: Infused Lactated Ringer's (Lactated Ringers) 1,000 mls @ 50 mls/hr IV .Q20H [facility] Last Infusion: 05/01/24 08:14 Dose: Infused Magnesium Sulfate/Dextrose (Magnesium Sulfate Premix) 1 gm in 100 mls @ 200 mls/hr IV ONCE ONE Stop: 04/26/24 08:46 Last Infusion: 04/26/24 12:40 Dose: Infused Potassium Phosphate 40 meq/ (Sodium Chloride) 108.5106 mls @ 27.273 mls/hr IV ONCE ONE Stop: 04/26/24 12:15 Last Infusion: 04/30/24 17:45 Dose: Infused Magnesium Sulfate/Dextrose (Magnesium Sulfate Premix) 1 gm in 100 mls @ 200 mls/hr IV ONCE ONE Stop: 04/27/24 08:42 Last Infusion: 04/27/24 09:55 Dose: Infused Sterile Water (Water) Confirm Administered Dose 10 mls @ as directed .ROUTE .STK-MED ONE Stop: 04/27/24 09:12 Last Infusion: 04/27/24 10:29 Dose: Infused Potassium Phosphate 40 meq/ (Sodium Chloride) 108.5106 mls @ 27.273 mls/hr IV ONCE ONE Stop: 04/28/24 12:58 Last Infusion: 04/28/24 14:15 Dose: Infused Magnesium Sulfate/Dextrose (Magnesium Sulfate Premix) 1 gm in 100 mls @ 200 mls/hr IV ONCE ONE Stop: 04/28/24 09:04 Last Infusion: 04/28/24 09:57 Dose: Infused Lidocaine HCl 5 ml/ Potassium (Chloride) 105 mls @ 52.5 mls/hr IV ONCE ONE Stop: 04/29/24 10:27 Last Infusion: 04/29/24 15:18 Dose: Infused Potassium Phosphate 40 meq/ (Sodium Chloride) 108.5106 mls @ 27.273 mls/hr IV ONCE ONE Stop: 04/30/24 12:58 Last Infusion: 04/30/24 14:17 Dose: Infused Lidocaine HCl 5 ml/ Potassium (Chloride) 105 mls @ 26.25 mls/hr IV ONCE ONE Stop: 05/01/24 11:56 Last Infusion: 05/01/24 12:56 Dose: Infused Iohexol (Iohexol 350 Mg/Ml 500 Ml Btl (Per Ml)) 0 ml IV ONCE ONE Stop: 04/20/24 19:17 Last Admin: 04/20/24 19:16 Dose: 100 ml Lactulose (Lactulose Oral Liq 20 Gm/30 Ml Udc) 20 gm PO Q12H [facility] Last Admin: 05/01/24 08:30 Dose: 20 gm Lorazepam (Lorazepam 2 Mg Tablet) 2 mg PO Q4H PRN; Protocol PRN Reason: WITHDRAWAL Lorazepam (Lorazepam 2 Mg/Ml Inj 1 Ml) 2 mg IM Q4H PRN; Protocol PRN Reason: ALCOHOL WITHDRAWAL Lorazepam (Lorazepam 2 Mg/Ml Inj 1 Ml) 2 mg IVP PRN PRN; Protocol PRN Reason: WITHDRAWAL Last Admin: 04/27/24 00:05 Dose: 2 mg Lorazepam (Lorazepam 2 Mg/Ml Inj 1 Ml) 1 mg IVP Q4H PRN PRN Reason: ANXIETY Last Admin: 05/01/24 16:53 Dose: 1 mg Magnesium Lactate (Magnesium Lactate 84 Mg Tablet) 84 mg PO DAILY [facility] Last Admin: 04/30/24 09:58 Dose: 84 mg Magnesium Lactate (Magnesium Lactate 84 Mg Tablet) 84 mg PO Q12H [facility] Last Admin: 05/01/24 08:30 Dose: 84 mg Metoclopramide HCl (Metoclopramide 5 Mg/Ml Sdv 2 Ml) 5 mg IVP Q6H PRN PRN Reason: NAUSEA AND VOMITING Last Admin: 04/28/24 03:20 Dose: 5 mg Multivitamins Therapeutic (Multivitamin Therapeutic Tablet) 1 tab PO DAILY [facility] Last Admin: 05/01/24 08:30 Dose: 1 tab Nystatin (Nystatin Powder 15 Gm Btl) 1 applic TOPICAL BID [facility] Nystatin (Nystatin Powder 15 Gm Btl) 1 applic TOPICAL BID [facility] Last Admin: 05/01/24 08:30 Dose: 1 applic Ondansetron HCl (Ondansetron 2 Mg/Ml Sdv 2 Ml) 4 mg IVP Q8H PRN PRN Reason: vomiting, or N/V if npo Last Admin: 05/01/24 06:05 Dose: 4 mg Pantoprazole Sodium (Pantoprazole 40 Mg Sdv) 40 mg IVP Q24H [facility] Last Admin: 04/23/24 22:48 Dose: 40 mg Pantoprazole Sodium (Pantoprazole 40 Mg Sdv) 40 mg IVP ONCE [facility] Pantoprazole Sodium (Pantoprazole 40 Mg Sdv) 40 mg IVP Q12H [facility] Last Admin: 05/01/24 08:31 Dose: 40 mg Phenobarbital Sodium (Phenobarbital 130 Mg/Ml Sdv 1 Ml) 300 mg IVP ONCE ONE Stop: 04/21/24 10:43 Last Admin: 04/21/24 11:35 Dose: Not Given Phenobarbital Sodium (Phenobarbital 130 Mg/Ml Sdv 1 Ml) 100 mg IVP ONCE ONE Stop: 04/21/24 13:01 Phenobarbital Sodium (Phenobarbital 130 Mg/Ml Sdv 1 Ml) 200 mg IVP ONCE ONE Stop: 04/21/24 11:01 Last Admin: 04/21/24 11:35 Dose: Not Given Phenobarbital Sodium (Phenobarbital 130 Mg/Ml Sdv 1 Ml) 100 mg IVP ONCE ONE Stop: 04/21/24 15:01 Rifaximin (Rifaximin 550 Mg Tablet) 550 mg PO BID [facility] Last Admin: 05/01/24 08:30 Dose: 550 mg Sodium Chloride (Sodium Chloride 0.9% 100 Ml Bag) 50 ml IV PRN PRN PRN Reason: Blood transfusion prime and flush Stop: 04/25/24 04:10 Last Admin: 04/24/24 12:22 Dose: 50 ml Sodium Chloride (Sodium Chloride 0.9% 100 Ml Bag) 50 ml IV PRN PRN PRN Reason: Blood transfusion prime and flush Stop: 04/25/24 15:15 Sterile Water (Water For Injection-Sterile Sdv 10 Ml) 10 ml IVP ONCE ONE Stop: 04/30/24 08:36 Last Admin: 04/30/24 08:45 Dose: 10 ml Sucralfate (Sucralfate 1 Gm Tablet) 1 gm PO AC&BEDTIME [facility] Last Admin: 05/01/24 09:50 Dose: 1 gm Thiamine HCl (Thiamine 100 Mg/Ml Sdv) 100 mg IM ONCE ONE Stop: 04/20/24 22:31 Last Admin: 04/20/24 23:13 Dose: 100 mg Thiamine HCl (Thiamine 100 Mg/Ml Sdv) 100 mg IVP DAILY [facility] Last Admin: 05/01/24 08:31 Dose: 100 mg Thiamine Mononitrate (Thiamine 100 Mg Tablet) 100 mg PO DAILY [facility] Last Admin: 04/21/24 08:34 Dose: 100 mg Allergies aspirin Allergy (Unknown, Verified 11/29/23 17:56) ADR-Gastrointestinal Upset STOMACH BLEEDING NSAIDS (Non-Steroidal Anti-Inflamma Allergy (Unknown, Verified 04/20/24 22:29) Unknown hematuria from Ibuprofen per patient acetaminophen [From Tylenol] Allergy (Verified 11/29/23 17:56) ADR-Gastrointestinal Upset naproxen [From Aleve] Allergy (Verified 04/20/24 22:28) Unknown blisters per patient omeprazole Allergy (Verified 04/20/24 22:30) ADR-Gastrointestinal Upset zolpidem [From Ambien] Allergy (Verified 11/29/23 17:56) ADR-Nightmare buspirone Adverse Reaction (Intermediate, Verified 11/29/23 17:56) ADR-Anxiety meat Allergy (Uncoded 04/20/24 22:28) ADR-Nausea Home Medications clonidine HCl 0.1 mg tablet 0.1 mg PO BID PRN Blood Pressure #60 tabs 09/05/23 [Rx Confirmed 04/20/24] lactulose 10 gram/15 mL oral solution 15 ml PO BID 04/05/24 [History Confirmed 04/20/24] lisinopril 20 mg tablet 40 mg PO DAILY 04/05/24 [History Confirmed 04/20/24] cyanocobalamin (vitamin B-12) 50 mcg tablet (Vitamin B-12) See Rx Instructions .Route .COMPLEX 04/20/24 [History Confirmed 04/20/24] folic acid 1 mg tablet See Rx Instructions .Route .COMPLEX 04/20/24 [History Confirmed 04/20/24] pantoprazole 40 mg tablet,delayed release (Protonix) 40 mg PO DAILY 04/20/24 [History Confirmed 04/20/24] Discharge Plan Discharge Patient Disposition: Xfer Short-Term Hosp Condition: Stable Prescriptions: No Action clonidine HCl 0.1 mg tablet 0.1 mg PO BID PRN (Reason: Blood Pressure) Qty: 60 0RF lisinopril 20 mg tablet 40 mg PO DAILY lactulose 10 gram/15 mL solution 15 ml PO BID Vitamin B-12 50 mcg Tablet See Rx Instructions .ROUTE .COMPLEX Rx Instructions: unknown dose Protonix 40 mg Tablet,Delayed Release (Dr/Ec) 40 mg PO DAILY folic acid 1 mg Tablet See Rx Instructions .ROUTE .COMPLEX Rx Instructions: unknown dose Discharge Orders: Discharge Order (Routine); Ordered 05/02/24 Ordered By: Troy Hopson Referrals: Antonio Alvarado MD [Primary Care Provider] - Patient Instructions: Opioid Safety Transfer Attestations Time Spent in Transfer Care: greater than 30 min Status at Transfer: Cognitive status at transfer: cognitively intact ; Behavioral status at transfer: cooperative ; Quality Metrics Clinical Quality Measures [ No reported AMI, CVA or VTE this stay] Coding Level of Care Code Acute Code for Chg Fwd Diagnoses Alcohol intoxication F10.929 Hypertension I10 Jaundice R17 Transaminitis R74.01 Advanced cirrhosis of liver K74.60 Acute alcoholic pancreatitis K85.20 Acute pancreatitis complication: unspecified Chest wall hematoma S20.219A High anion gap metabolic acidosis E87.29 Hypokalemia E87.6 Acute hepatic failure K72.00 Acute blood loss anemia D62 Elevated INR R79.1 Hyperbilirubinemia E80.6 Hypomagnesemia E83.42 Hypophosphatemia E83.39 Intramuscular hematoma T14.8XXA Bloody stools K92.1
== END 2024-05-01 17:41 | disposition short-term general hospital (02) | DRG 438 ==
LOC: ER 21:22 → MEDSURG 21:45 → ICU 04-21 12:59 → MEDSURG 04-28 11:21
PROVIDERS: Internal Medicine; Admitting Provider Internal Medicine; Emergency Provider Physician Assistant; PCP Family Medicine Adult Medicine; Visit Provider Family Medicine
DX: K85.20 Alcohol induced acute pancreatitis without necrosis or infection (principal); K72.00 Acute and subacute hepatic failure without coma; F10.239 Alcohol dependence with withdrawal, unspecified; E87.20 Acidosis, unspecified; D62 Acute posthemorrhagic anemia; K92.1 Melena; D68.9 Coagulation defect, unspecified; E87.1 Hypo-osmolality and hyponatremia; K86.0 Alcohol-induced chronic pancreatitis; T51.0X1A Toxic effect of ethanol, accidental (unintentional), initial encounter; Y90.8 Blood alcohol level of 240 mg/100 ml or more; K72.10 Chronic hepatic failure without coma; S20.219A Contusion of unspecified front wall of thorax, initial encounter; S30.0XXA Contusion of lower back and pelvis, initial encounter; W19.XXXA Unspecified fall, initial encounter; E87.6 Hypokalemia; E83.42 Hypomagnesemia; E83.39 Other disorders of phosphorus metabolism; D69.6 Thrombocytopenia, unspecified; E88.09 Other disorders of plasma-protein metabolism, not elsewhere classified; K21.9 Gastro-esophageal reflux disease without esophagitis; I10 Essential (primary) hypertension; Z91.81 History of falling
CPT/HCPCS: 36415; 36416; 36430; 36573; 36592; 70450; 71045; 71250; 72072; 72100; 74176; 74177; 74181; 76604; 80048; 80053; 80202; 80306; 80307; 81001; 82140; 82550; 82962; 83605; 83690; 83735; 83880; 83930; 83935; 84100; 84145; 84300; 85014; 85018; 85025; 85610; 85651; 85730; 86140; 86850; 86900; 86920; 86927; 96360; 96372; 96374; 96376; 99285; C1751; C9113; J0692; J0696; J1170; J2060; J2405; J2765; J3372; J3411; J3475; J3480; J3490; J7030; J7120; P9016; P9017; Q9967

== ENCOUNTER 2024-07-10 09:05 | Emergency (ER) | payer MEDICAID, SELFPAY ==
[2024-07-10 09:09] VITALS: BP 75/38; PULSE 97; RESP 23; TEMP 35.6; O2SAT 97; BMI 23.7
--- NOTE | 2024-07-10 09:22 | XR_ITS ---
WS: [id number] Exam: XR chest 1V portable [id number] Date/Time of Exam: 07/10/2024 9:24 AM Reason For Exam: hypotension Comparison 04/23/2024. Lungs are clear and fully inflated. Normal cardiomediastinal silhouette and regional bony elements. N o pleural effusions. Bony structures are intact. Monitoring leads superimpose the chest. XR/XR chest 1V portable [id number] IMPRESSION: 1. Negative chest.
[2024-07-10 09:43] LABS: Basophils % 0.1 %; Eosinophils % 0.1 %; Lymphocytes # 0.6 10^3/uL (0.8-4.8); Lymphocytes % 4.6 %; Mean Corpuscular HGB Conc 33.9 g/dL (30-55); Mean Corpuscular Hemoglobin 34.6 pg (27-33); Mean Corpuscular Volume 102.2 fl (82-101); Mean Platelet Volume 11.3 fL (7.4-10.4); Monocytes # 1.4 10^3/uL (0.2-0.9); Monocytes % 9.9 %; Neutrophils % 83.6 %; Nucleated Red Blood Cells % 0 %; Platelet Count 60 10^3/cmm (157-399); Red Blood Count 1.85 10^6/uL (3.85-5.65); Red Cell Distribution Width 16.3 % (12.1-15.1); White Blood Count 13.64 10^3/uL (3.29-11.43)
[2024-07-10] MEDS: sodium chloride 0.9% 1,000 ML 999 ML IV (09:44)
[2024-07-10 09:56] LABS: Hematocrit 18.9 % (37-53)
--- NOTE | 2024-07-10 09:59 | ED_ITS ---
HPI - General Adult 2 General: Chief complaint: General Medical Stated complaint: swelling in r leg, stage 4 liver failure Time Seen by Provider: 07/10/24 09:11 Source: patient and EMS Mode of arrival: EMS Limitations: no limitations History of Present Illness: 34-year-old male has a history of severe alcoholism with end-stage liver disease. Patient still drinks he states he drank a little this morning. He states he is having allover pain denies any fevers. Patient states he is transferred to [place] 2 months ago and they had told him that they had nothing else for to offer him and is not a transplant candidate Associated symptoms: Deny chest pain, dyspnea, headache(s), nausea, rash or vomiting Related Data Home Medications Medication Instructions Recorded Confirmed lactulose 10 gram/15 mL oral 15 ml PO BID 04/05/24 07/10/24 solution cyanocobalamin (vitamin B-12) 50 See Rx Instructions .Route .COMPLEX 04/20/24 07/10/24 mcg tablet (Vitamin B-12) folic acid 1 mg tablet See Rx Instructions .Route .COMPLEX 04/20/24 07/10/24 pantoprazole 40 mg tablet,delayed 40 mg PO DAILY 04/20/24 07/10/24 release (Protonix) hydroxyzine HCl 10 mg tablet 10 mg PO TID 07/10/24 07/10/24 oxycodone 5 mg tablet 5 mg PO BID 07/10/24 07/10/24 Allergies Allergy/AdvReac Type Severity Reaction Status Date / Time aspirin Allergy Unknown ADR-Gastrointestinal Verified 11/29/23 17:56 Upset NSAIDS (Non-Steroidal Allergy Unknown Unknown Verified 04/20/24 22:29 Anti-Inflamma acetaminophen [From Tylenol] Allergy ADR-Gastrointestinal Verified 11/29/23 17:56 Upset naproxen [From Aleve] Allergy Unknown Verified 04/20/24 22:28 omeprazole Allergy ADR-Gastrointestinal Verified 04/20/24 22:30 Upset zolpidem [From Ambien] Allergy ADR-Nightma Verified 11/29/23 17:56 re buspirone AdvReac Intermediate ADR-Anxiety Verified 11/29/23 17:56 meat Allergy ADR-Nausea Uncoded 04/20/24 22:28 Review of Systems 2 Const: Denies: fever(s), chills, body aches or change in appetite ENMT: Denies: throat pain or dental pain Card: Denies: chest pain Resp: Denies: dyspnea GI: Reports: abdominal pain; Denies: nausea, vomiting or diarrhea : Denies: dysuria Musc: Denies: neck pain or back pain Skin/Breast: Denies: rash Neuro: Denies: headache(s) PFSH ED 2 PFSH: Medical History High anion gap metabolic acidosis Alcoholic gastritis Alcoholism Thrombocytopenia Chronic hyponatremia Transaminitis Chronic nausea Gynecomastia, male Panic attack Acute on chronic pancreatitis Hyperlipidemia Anxiety and depression GERD (gastroesophageal reflux disease) Hypertension Acute posttraumatic stress disorder Surgical History No pertinent past surgical history Family History Father Hypertension Social History Smoking and tobacco/nicotine status: never used tobacco/nicotine Alcohol intake: current Alcohol intake frequency: 0-2 Drinks per Day Substance/Drug Use: never Marital status: Number of children: 5 Current occupational status: employed Current gender identity: Male Physical Exam 2 Const: GENERAL APPEARANCE: ill appearing HENMT: COMMON NORMALS: normocephalic and atraumatic HEAD & SCALP: n ormocephalic and atraumatic Eye: OTHER: scleral icterus Neck/C-Spine: COMMON NORMALS: full ROM and supple Chest: COMMONS NORMALS: normal inspection of the chest Resp: COMMON NORMALS: normal respiratory effort, No retractions, No use of accessory muscles and clear to auscultation bilaterally AUSCULTATION: clear to auscultation bilaterally Cardio: COMMON NORMALS: regular rate, regular rhythm and No murmurs present (Cardio) RATE: regular rate RHYTHM: regular rhythm GI: COMMON NORMALS: Soft to palpation and no masses PALPATION: Yes Soft to palpation OTHER: abdominal distension Extremity: COMMON NORMALS: full ROM Neuro: COMMON NORMALS: moves all extremities and no focal motor deficits Psych: COMMON NORMALS: mental status grossly normal, Normal thought process present and cooperative THOUGHT PROCESS: Normal thought process present Skin: COMMON NORMALS: no wounds NARRATIVE SKIN EXAM: Severe jaundice Course 2 Vital Signs: Vital signs: Vital Signs Temperature 96.1 F L 10/02/24 09:09 Pulse Rate 44 L 07/10/24 13:47 Respiratory Rate 22 H 07/10/24 13:44 Blood Pressure 53/22 07/10/24 13:47 Pulse Oximetry 83 L 07/10/24 13:47 Oxygen Delivery Me thod Room Air 07/10/24 13:47 MDM - General Adult Medical Decision Making Patient presents here with history of cirrhosis end-stage liver disease. Patient here has a MELD score of 44 he had recently been admitted to [place] and informed him that he was not a transplant candidate as he still drinks. Patient told me he just has pain and wanted his pain under control I talked to him in depth about treatment options he states that he has been talked to about hospice before and he had like to be on hospice had case management rn come and talk to him as well and he agreed as well that he want to be on hospice since she is at hospice up. I did speak to hepatology at [facility] who also agreed that they had nothing else to offer him and would recommend hospice as well. Had set up transport for patient be transported at home patient became bradycardic he went to [facility] and did at 1402. Medical Records I reviewed the patient's medical records. Lab Data I reviewed the patient's lab results. 07/10/24 09:31 07/10/24 09:31 Radiology Impressions Chest X-Ray 07/10/24 09:22 IMPRESSION: 1. Negative chest. Laboratory Results WBC 13.64 10^3/uL (3.29-11.43) H 07/10/24 09:31 RBC 1.85 10^6/uL (3.85-5.65) L 07/10/24 09:31 Hgb 6.40 g/dL (11.27-16.99) L* 07/10/24 09:31 Hct 18.9 % (37-53) L* 07/10/24 09:31 MCV 102.2 fl (82-101) H 07/10/24 09:31 MCH 34.6 pg (27-33) H 07/10/24 09:31 MCHC 33.9 g/dL (30-55) 07/10/24 09:31 RDW 16.3 % (12.1-15.1) H 07/10/24 09:31 Plt Count 60 10^3/cmm (157-399) L 07/10/24 09:31 MPV 11.3 fL (7.4-10.4) H 07/10/24 09:31 Neut % (Auto) 83.6 % 07/10/24 09:31 Lymph % (Auto) 4.6 % 07/10/24 09:31 Gladwin % (Auto) 9.9 % 07/10/24 09:31 Eos % (Auto) 0.1 % 07/10/24 09:31 Baso % (Auto) 0.1 % 07/10/24 09:31 Neut # (Auto) 11.40 10^3/uL (1.8-7.7) H 07/10/24 09:31 Lymph # (Auto) 0.6 10^3/uL (0.8-4.8) L 07/10/24 09:31 Gladwin # (Auto) 1.4 10^3/uL (0.2-0.9) H 07/10/24 09:31 Eos # (Auto) 0.0 10^3/uL (0.0-0.8) 07/10/24 09:31 Baso # (Auto) 0.0 10^3/uL (0.0-0.1) 07/10/24 09:31 Nucleated RBC % (auto) 0 % 07/10/24 09: Nucleated RBCs # 0.0 /100WBC 07/10/24 09:31 PT 57.20 SECONDS (12.1-14.9) H 07/10/24 09:31 INR 6.17 (0.8-1.2) H* 07/10/24 09:31 Sodium 125 mmol/L (136-145) L 07/10/24 09:31 Potassium 3.9 mmol/L (3.5-5.1) 07/10/24 09:31 Chloride 82 mmol/L (98-107) L 07/10/24 09:31 Carbon Dioxide 6 mmol/L (22-29) L* 07/10/24 09:31 Anion Gap 40.9 (5-19) H 07/10/24 09:31 BUN 12 mg/dL (6-20) 07/10/24 09:31 Creatinine 1.6 mg/dL (0.7-1.2) H 07/10/24 09:31 GFR Calculation 49.7 mL/min (90-130) L 07/10/24 09:31 Glucose 98 mg/dL (65-115) 07/10/24 09:31 Calculated Osmolality 260 mOsm/kg (285-295) L 07/10/24 09:31 Lactic Acid 23.3 mmol/L (0.5-2.2) H* 07/10/24 09:31 Calcium 7.2 mg/dL (8.5-10.5) L 07/10/24 09:31 Magnesium 1.9 mg/dL (1.7-2.3) 07/10/24 09:31 Total Bilirubin 24.1 mg/dL (0.15-1.2) H* 07/10/24 09:31 AST 408 U/L (0-40) H 07/10/24 09:31 ALT 77 U/L (0-41) H 07/10/24 09:31 Alkaline Phosphatase 211 U/L (40-130) H 07/10/24 09:31 NT-Pro-B Natriuret Pep 95 pg/mL (0-125) 07/10/24 09:31 Total Protein 4.8 g/dL (6.6-8.7) L 07/10/24 09:31 Albumin 2.7 g/dL (3.5-5.2) L 07/10/24 09:31 Globulin 2.1 g/dL (1.3-4.6) 07/10/24 09:31 Ethyl Alcohol 399 mg/dL (0-10) H* 07/10/24 09:31 No radiology studies performed this visit Discharge Plan Discharge Patient Disposition: Clinical Impression: End stage liver disease Condition: Stable Prescriptions: No Action lactulose 10 gram/15 mL solution 15 ml PO BID Vitamin B-12 50 mcg Tablet See Rx Instructions .ROUTE .COMPLEX Rx Instructions: unknown dose pantoprazole [Protonix] 40 mg Tablet,Delayed Release (Dr/Ec) 40 mg PO DAILY folic acid 1 mg Tablet See Rx Instructions .ROUTE .COMPLEX Rx Instructions: unknown dose hydroxyzine HCl 10 mg tablet 10 mg PO TID oxycodone 5 mg tablet 5 mg PO BID Discharge Orders: Discharge ED (Routine); Ordered 10/02/24 Ordered By: Yamil Sharif Referrals: Antonio Alvarado MD [Primary Care Provider] - Discharge Diet: Advance as tolerated Discharge Activity: Resume usual activity Patient Instructions: Acute Liver Failure (DC) Coding Level of Care Code ED Manager Integration for Al Duran
[2024-07-10 10:30] VITALS: BP 86/38; PULSE 94; O2SAT 99
[2024-07-10 10:51] LABS: INR 6.17 (0.8-1.2)
[2024-07-10 10:58] LABS: Alanine Aminotransferase 77 U/L (0-41); Albumin Level 2.7 g/dL (3.5-5.2); Alkaline Phosphatase 211 U/L (40-130); Anion Gap 40.9 (5-19); Aspartate Amino Transferase 408 U/L (0-40); Blood Urea Nitrogen 12 mg/dL (6-20); Calcium 7.2 mg/dL (8.5-10.5); Chloride 82 mmol/L (98-107); Creatinine Clr Calc Pharmacy 74.1621; Globulin 2.1 g/dL (1.3-4.6); Glomerular Filtration Rate 49.7 mL/min (90-130); Glucose 98 mg/dL (65-115); Magnesium 1.9 mg/dL (1.7-2.3); NT Pro B Type Natriuretic Pept 95 pg/mL (0-125); Osmolality Calculated 260 mOsm/kg (285-295); Potassium 3.9 mmol/L (3.5-5.1); Sodium 125 mmol/L (136-145); Total Protein 4.8 g/dL (6.6-8.7)
[2024-07-10 11:12] LABS: Alcohol Level 399 mg/dL (0-10); Carbon Dioxide 6 mmol/L (22-29); Lactic Sepsis W/Reflex 23.3 mmol/L (0.5-2.2); Total Bilirubin 24.1 mg/dL (0.15-1.2)
[2024-07-10 11:13] LABS: Reflex Lactate Order REFLEX LACTIC ORDERD
--- NOTE | 2024-07-10 11:40 | PC.SOCIAL ---
Clair at [facility] states she has evaluated patient and sent information to Dr Merritt to review. She also states that they will have to run auth with his insurance if they accept. States she is following up with it all. States family can go home at this time.
--- NOTE | 2024-07-10 11:53 | PC.SOCIAL ---
MARIBEL spoke to Leeann in ER and she states patient has gotten worse and they are discussing possible GIP hospice. MARIBEL called and spoke to Clair and informed her that patient might need a GIP evaluation, She stated she would.
[2024-07-10] MEDS: ondansetron 2 mg/ML SDV 2 mL 4 MG IVP (12:14)
[2024-07-10 13:44] VITALS: RESP 22; O2SAT 87
[2024-07-10] MEDS: morphine 4 mg/mL SDV 1 mL IVP (13:44)
[2024-07-10 13:47] VITALS: BP 53/22; PULSE 44; O2SAT 83
--- NOTE | 2024-07-10 14:16 | PC.NURSE ---
PATIENT PRIOR TO ADMINISTERING ATIVAN. ATIVAN WASTED WITH EDILMA BOCANEGRA RN.
--- NOTE | 2024-07-10 14:28 | PC.NURSE ---
MTS contacted on patient expiration. Patient is placed on a hold at this time. [facility] and he gave his release on patient. Patients Tayler did chose for patient to be sent to [facility].
--- NOTE | 2024-07-10 15:10 | PC.SOCIAL ---
MARIBEL attempted to call Duarte and unable to leave a message. So called and left a Message for Zeferino at [facility] to let her know that patient has .
[2024-07-10 16:44] VITALS: BP 00/00; PULSE 0; O2SAT 0
== END 2024-07-10 14:02 | disposition expired ==
PROVIDERS: Emergency Provider Emergency Medicine; PCP Family Medicine Adult Medicine
DX: K72.10 Chronic hepatic failure without coma (principal); E78.5 Hyperlipidemia, unspecified; I10 Essential (primary) hypertension
CPT/HCPCS: 36415; 71045; 80053; 80307; 83605; 83735; 83880; 85025; 85610; 87040; 96374; 96375; 99284; 99291; 99292; J2270; J2405; J7030